=== PATIENT | female | born 1950 | race Caucasian/White ===

== ENCOUNTER 2018-05-08 10:18 | Emergency (ER) | payer OTHER, BC ==
[2018-05-08] MEDS ORDERED: LIDOCAINE 1% W/EPI 1:100,000 MDV 50 ML VIAL ONE (11:16)
[2018-05-08] MEDS ORDERED: TETANUS & DIPHTHERIA TOX,ADULT 0.5 ML VIAL ONE (11:16)
--- NOTE | 2018-05-08 11:33 | ER ---
Nurse's Notes [facility] Name: Trish Vergara Age: 68 yrs Sex: Female : 1950 Arrival Date: 05/08/2018 Time: 10:21 Bed 16 Private MD: Jared Danielle E Diagnosis: Laceration with foreign body of left middle finger without damage to nail Presentation: 05/08 10:38 Presenting complaint: Patient states: Bitten on left 3 rd digit while breaking up a dog aj fight. Small laceration to distal left 3 rd digit. Bleeding controlled. Transition of care: patient was not received from another setting of care. Onset of symptoms was May 08, 2018. Risk Assessment: Do you want to hurt yourself or someone else? Patient reports no desire to harm self or others. Initial Sepsis Screen: Does the patient meet any 2 criteria? No. Patient's initial sepsis screen is negative. Does the patient have a suspected source of infection? No. Patient's initial sepsis screen is negative. Care prior to arrival: None. 10:38 Method Of Arrival: Ambulatory 10:38 Acuity: MERCEDES 4 Triage Assessment: 10:41 Bite description: bite sustained to dorsal aspect of distal phalanx of left middle aj finger is from animal, was sustained 1-2 hours ago. by a dog, animal information: vaccination(s) is current. General: Appears in no apparent distress. comfortable, Behavior is calm, cooperative, appropriate for age. Pain: Complains of pain in dorsal aspect of distal phalanx of left middle finger. Neuro: Level of Consciousness is awake, alert, obeys commands, Oriented to person, place, time, situation, Appropriate for age. Respiratory: Airway is patent Respiratory effort is even, unlabored, Respiratory pattern is regular, symmetrical. Derm: Skin is intact, is healthy with good turgor, Skin is pink, warm \T\ dry. normal. Injury Description: Bite sustained to dorsal aspect of distal phalanx of left middle finger caused by a dog, is from animal, was sustained 30-60 minutes ago. Historical: - Allergies: 10:41 Phenergan; aj 10:41 Talwin; aj - Home Meds: 10:41 Morphine Oral [Active]; Vicodin 7.5/750 Oral [Active]; Xanax Oral [Active]; gabapentin aj oral oral [Active]; Naprosyn Oral [Active]; - PMHx: 10:41 Chronic pain; aj - PSHx: 10:41 hip replacement; aj - Immunization history:: Adult Immunizations up to date. - Social history:: Smoking status: Patient uses tobacco products, smokes one pack cigarettes per day. - Ebola Screening: : Patient negative for fever greater than or equal to 101.5 degrees Fahrenheit, and additional compatible Ebola Virus Disease symptoms Patient denies exposure to infectious person Patient denies travel to an Ebola-affected area in the 21 days before illness onset No symptoms or risks identified at this time. Screenin:45 Abuse screen: Denies threats or abuse. Denies injuries from another. Nutritional hb screening: No deficits noted. Tuberculosis screening: No symptoms or risk factors identified. Fall Risk None identified. Assessment: 10:45 General: Appears in no apparent distress. Behavior is calm, cooperative. Pain: Pain hb currently is 8 out of 10 on a pain scale. Neuro: Level of Consciousness is awake, alert, obeys commands, Oriented to person, place, time, situation. Cardiovascular: Capillary refill < 3 seconds Patient's skin is warm and dry. Respiratory: Airway is patent Trachea midline Respiratory effort is even, unlabored, Respiratory pattern is regular, symmetrical. GI: No signs and/or symptoms were reported involving the gastrointestinal system. : No signs and/or symptoms were reported regarding the genitourinary system. EENT: No signs and/or symptoms were reported regarding the EENT system. Derm: Skin is healthy with good turgor, Wound noted Other: laceration to left third finger. Musculoskeletal: No signs and/or symptoms reported regarding the musculoskeletal system. 11:45 Reassessment: Patient appears in no apparent distress at this time. Patient and/or hb family updated on plan of care and expected duration. Pain level reassessed. Patient is alert, oriented x 3, equal unlabored respirations, skin warm/dry/pink. Vital Signs: 10:41 BP 150 / 104; Pulse 110; Resp 20; Temp 98.2; Pulse Ox 98% on R/A; Weight 66.22 kg; aj Height 5 ft. 10 in. (177.80 cm); 11:30 BP 148 / 88; Pulse 90; Resp 18; Pulse Ox 100% on R/A; hb 10:41 Body Mass Index 20.95 (66.22 kg, 177.80 cm) ED Course: 10:21 Patient arrived in ED. mr 10:21 Jared Danielle MD is Private Physician. mr 10:39 Triage completed. aj 10:41 Arm band placed on right wrist. Patient placed in waiting room, Patient notified of wait time. 10:45 Patient has correct armband on for positive identification. Bed in low position. Call hb light in reach. Side rails up X 1. 10:54 Judi Prince, RN is Primary Nurse. hb 10:56 Petr Scherer PA is PHCP. jr8 10:56 Bud Mojica MD is Attending Physician. jr8 11:33 Jared Danielle MD is Referral Physician. jr8 11:52 No provider procedures requiring assistance completed. Patient did not have IV access hb during this emergency room visit. Administered Medications: 11:22 Drug: Lidocaine (1 %) 1 vials Volume: 20 ml; Route: Infiltration; hb 11:39 Drug: Tetanus-Diphtheria Toxoid Adult 0.5 ml {Boat Buffer Plastic: [employer]. Exp: hb 07/02/2020. Lot #: [id number]. } Route: IM; Site: left deltoid; 12:50 Follow up: Response: No adverse reaction hb Outcome: 11:33 Discharge ordered by . jr8 11:52 Discharged to home ambulatory. hb 11:52 Condition: stable 11:52 Discharge instructions given to patient, Instructed on discharge instructions, follow up and referral plans. medication usage, Demonstrated understanding of instructions, follow-up care, medications, wound care, Prescriptions given X 1. 11:54 Patient left the ED. hb Signatures: Maureen Camacho RN RN Leonor Bates mr Petr Scherer PA PA jr8 Judi Prince, RN RN hb
--- NOTE | 2018-05-08 11:34 | EDPHYS ---
Physician Documentation [facility] Name: Trish Vergara Age: 68 yrs Sex: Female : 1950 Arrival Date: 05/08/2018 Time: 10:21 Bed 16 Private MD: Jared Danielle E ED Physician Bud Mojica HPI: 05/08 11:03 This 68 yrs old Female presents to ER via Ambulatory with complaints of Dog jr8 Bite. 11:03 The patient was bitten on the dorsal aspect of distal phalanx of left middle finger, by jr8 a dog, while trying to stop animals from fighting, at home. Onset: The symptoms/episode began/occurred acutely, today. Animal information: The animal was reported to appear healthy. Animal's vaccinations are up to date. The animal is known and can be quarantined. Secondary to the bite the patient reports a laceration. Associated signs and symptoms: The patient has no apparent associated signs or symptoms. Severity of symptoms: At their worst the symptoms were mild, in the emergency department the symptoms are unchanged. The patient has not experienced similar symptoms in the past. The patient has not recently seen a physician. Historical: - Allergies: 10:41 Phenergan; aj 10:41 Talwin; aj - Home Meds: 10:41 Morphine Oral [Active]; Vicodin 7.5/750 Oral [Active]; Xanax Oral [Active]; gabapentin aj oral oral [Active]; Naprosyn Oral [Active]; - PMHx: 10:41 Chronic pain; aj - PSHx: 10:41 hip replacement; aj - Immunization history:: Adult Immunizations up to date. - Social history:: Smoking status: Patient uses tobacco products, smokes one pack cigarettes per day. - Ebola Screening: : Patient negative for fever greater than or equal to 101.5 degrees Fahrenheit, and additional compatible Ebola Virus Disease symptoms Patient denies exposure to infectious person Patient denies travel to an Ebola-affected area in the 21 days before illness onset No symptoms or risks identified at this time. ROS: 11:05 Eyes: Negative for injury, pain, redness, and discharge, ENT: Negative for injury, jr8 pain, and discharge, Neck: Negative for injury, pain, and swelling, Cardiovascular: Negative for chest pain, palpitations, and edema, Respiratory: Negative for shortness of breath, cough, wheezing, and pleuritic chest pain, Abdomen/GI: Negative for abdominal pain, nausea, vomiting, diarrhea, and constipation, Back: Negative for injury and pain, Neuro: Negative for headache, weakness, numbness, tingling, and seizure. 11:05 MS/extremity: Positive for laceration, of the dorsal aspect of distal phalanx of left middle finger. Exam: 11:05 Cardiovascular: Regular rate and rhythm with a normal S1 and S2. No gallops, murmurs, jr8 or rubs. Normal PMI, no JVD. No pulse deficits. Respiratory: Lungs have equal breath sounds bilaterally, clear to auscultation and percussion. No rales, rhonchi or wheezes noted. No increased work of breathing, no retractions or nasal flaring. MS/ Extremity: Pulses equal, no cyanosis. Neurovascular intact. Full, normal range of motion. Neuro: Awake and alert, GCS 15, oriented to person, place, time, and situation. Cranial nerves II-XII grossly intact. Motor strength 5/5 in all extremities. Sensory grossly intact. Cerebellar exam normal. Normal gait. 11:05 Skin: injury, laceration(s), the wound is approximately 2.5 cm(s), with a depth of .5 cm(s), of the dorsal aspect of distal phalanx of left middle finger, that can be described as no foreign body, irregular, without bleeding. Vital Signs: 10:41 BP 150 / 104; Pulse 110; Resp 20; Temp 98.2; Pulse Ox 98% on R/A; Weight 66.22 kg; aj Height 5 ft. 10 in. (177.80 cm); 11:30 BP 148 / 88; Pulse 90; Resp 18; Pulse Ox 100% on R/A; hb 10:41 Body Mass Index 20.95 (66.22 kg, 177.80 cm) aj Laceration: 11:32 Wound Repair of 2.5cm ( 1.0in ) subcutaneous laceration to left hand and dorsal aspect jr8 of distal phalanx of left middle finger. Irregularly shaped.. Minimal bleeding noted.. Distal neuro/vascular/tendon intact. Anesthesia: Digital block administered with 3 mls of 1% lidocaine. Wound prep: Extensive cleansing with betadine, Wound irrigation with saline, Wound explored extensively. Skin closed with 6 4-0 Prolene using interrupted sutures and sterile technique. Patient tolerated well. MDM: 10:56 Patient medically screened. jr8 11:32 Data reviewed: vital signs, nurses notes, and as a result, I will discharge patient. jr8 Data interpreted: Pulse oximetry: on room air is 98 %. Interpretation: normal. Counseling: I had a detailed discussion with the patient and/or guardian regarding: the historical points, exam findings, and any diagnostic results supporting the discharge/admit diagnosis, the need for outpatient follow up, a family practitioner, to return to the emergency department if symptoms worsen or persist or if there are any questions or concerns that arise at home. 05/08 11:05 Order name: Dressing - Wound; Complete Time: 11:36 jr8 05/08 11:05 Order name: Gloves, Sterile; Complete Time: 11:36 jr8 05/08 11:05 Order name: Setup Suture Tray; Complete Time: 11:36 jr8 Administered Medications: 11:22 Drug: Lidocaine (1 %) 1 vials Volume: 20 ml; Route: Infiltration; hb 11:39 Drug: Tetanus-Diphtheria Toxoid Adult 0.5 ml {Jumpbasting Lining Baster: [employer]. Exp: hb 07/02/2020. Lot #: [id number]. } Route: IM; Site: left deltoid; 12:50 Follow up: Response: No adverse reaction Disposition: 15:27 Co-signature as Attending Physician, Bud Mojica MD. rn Disposition: 05/08/18 11:33 Discharged to Home. Impression: Laceration with foreign body of left middle finger without damage to nail. - Condition is Stable. - Discharge Instructions: Laceration Care, Adult, Animal Bite. - Prescriptions for Augmentin 875- 125 mg Oral Tablet - take 1 tablet by ORAL route every 12 hours for 10 days; 20 tablet. - Medication Reconciliation Form, Thank You Letter, Antibiotic Education, Prescription Opioid Use form. - Follow up: Jared Danielle MD; When: 7 - 10 days; Reason: Wound Recheck, Recheck today's complaints, Continuance of care, Staple/Suture removal, Re-evaluation by your physician. - Problem is new. - Symptoms have improved. Signatures: Maureen Camacho RN RN aj Nieto, Roman, MD MD rn Roszak, Josh, PA PA jr8 Judi Prince RN RN Corrections: (The following items were deleted from the chart) 11:54 11:33 05/08/2018 11:33 Discharged to Home. Impression: Laceration with foreign body of hb left middle finger without damage to nail. Condition is Stable. Forms are Medication Reconciliation Form, Thank You Letter, Antibiotic Education, Prescription Opioid Use. Follow up: Jared Danielle; When: 7 - 10 days; Reason: Wound Recheck, Recheck today's complaints, Continuance of care, Staple/Suture removal, Re-evaluation by your physician. Problem is new. Symptoms have improved. jr8
== END 2018-05-08 11:54 | disposition home or self-care (01) ==
LOC: ER 10:18
PROC: 0HQGXZZ Repair Left Hand Skin, External Approach (ICD-10-PCS; principal; 2018-05-08)
DX: S61.213A Laceration without foreign body of left middle finger without damage to nail, initial encounter (principal); F17.210 Nicotine dependence, cigarettes, uncomplicated; W54.0XXA Bitten by dog, initial encounter; Y93.89 Activity, other specified; Y92.9 Unspecified place or not applicable; Y99.8 Other external cause status; Z88.6 Allergy status to analgesic agent; Z23 Encounter for immunization
CPT/HCPCS: 90714; 99283

== ENCOUNTER 2019-03-17 13:47 | Emergency (ER) | payer BC, OTHER ==
[2019-03-17] MEDS ORDERED: ONDANSETRON 4 MG (ODT) TAB ONE (14:18)
[2019-03-17] MEDS ORDERED: NA CHLORIDE 0.9% 500 ML ONE (14:26)
[2019-03-17] MEDS ORDERED: ONDANSETRON 4 MG/2 ML VIAL ONE ×2 (14:26→18:16)
[2019-03-17 14:38] LABS: Absolute Lymphocytes (CBC) 0.8 K/uL (0.7-4.9); Absolute Monocytes 0.2 K/uL (0.1-1.3); Absolute Neutrophil 5.9 K/uL (1.8-8.0); Basophils % 0.2 % (0-1.3); Hematocrit 29.5 % (36.0-45.0); MPV 7.2 fL (7.6-11.3); Monocytes % 3.5 % (3.3-12.3); RBC Red Blood Cell Count 4.21 M/uL (3.86-4.86)
[2019-03-17 14:55] LABS: Albumin 3.2 g/dL (3.4-5.0); Bilirubin Direct 0.1 mg/dL (0-0.2); Bilirubin Total 0.5 mg/dL (0.2-1.0); Potassium 3.8 mmol/L (3.5-5.1); Protein, Total 7.4 g/dL (6.4-8.2)
[2019-03-17 17:12] LABS: Urine Bacteria <20 /HPF (<20); Urine Culture Reflex Order NOT NEEDED; Urine RBC <5 /HPF (NONE SEEN)
--- NOTE | 2019-03-17 17:39 | RAD REPORT ---
EXAM DESCRIPTION: CT - Abdomen Pelvis W Contrast - 03/17/2019 5:18 pm CLINICAL HISTORY: Abdominal pain. Vomiting COMPARISON: 2010 TECHNIQUE: Computed axial tomography of the abdomen and pelvis was obtained. 100 cc Isovue-300 is ad ministered intravenously. Oral contrast was given. All CT scans are performed using dose optimization technique as appropriate and may include automated exposure control or mA/KV adjustment according to patient size. FINDINGS: Small hiatal hernia The liver, spleen, pancreas, adrenals and left kidney appear unremarkable. Mild cortical thinning rig ht kidney probably secondary to prior inflammation The appendix is normal caliber Artifact from bilateral hip arthroplasties obscure detail of the pelvis somewhat. There is no evidence of diverticulitis Normal appendix Postsurgical changes involving the lumbar spine IMPRESSION: No acute abnormality displayed
--- NOTE | 2019-03-17 17:54 | ER ---
Nurse's Notes [facility] Name: Trish Vergara Age: 69 yrs Sex: Female : 1950 Arrival Date: 03/17/2019 Time: 13:50 Bed 23 Private MD: Jared Danielle E Diagnosis: Vomiting;Enteritis Presentation: 03/17 13:51 Presenting complaint: Patient states: I have been vomiting since last night and I can't la1 stop. Transition of care: patient was not received from another setting of care. Onset of symptoms was March 17, 2019. Risk Assessment: Do you want to hurt yourself or someone else? Patient reports no desire to harm self or others. Initial Sepsis Screen: Does the patient meet any 2 criteria? No. Patient's initial sepsis screen is negative. Does the patient have a suspected source of infection? No. Patient's initial sepsis screen is negative. Care prior to arrival: None. 13:51 Method Of Arrival: Ambulatory la1 13:51 Acuity: MERCEDES 3 la1 Triage Assessment: 14:02 General: Appears in no apparent distress. Behavior is calm, cooperative. ls4 Historical: - Allergies: 15:14 Phenergan; ls4 15:14 Talwin; ls4 - Home Meds: 15:15 gabapentin Oral [Active]; Morphine Oral [Active]; Naprosyn Oral [Active]; Vicodin ls4 7.5/750 Oral [Active]; Xanax Oral [Active]; - PMHx: 15:14 Chronic pain; ls4 - Immunization history:: Adult Immunizations up to date. - Social history:: Smoking status: Patient/guardian denies using tobacco. - Ebola Screening: : No symptoms or risks identified at this time. - Family history:: not pertinent. - Hospitalizations: : No recent hospitalization is reported. Screenin:02 Abuse screen: Denies threats or abuse. Nutritional screening: No deficits noted. ls4 Tuberculosis screening: No symptoms or risk factors identified. Fall Risk None identified. Assessment: 14:03 General: Appears unkempt, Behavior is anxious, flat. Pain: Complains of pain in ls4 generalized Pain currently is 4 out of 10 on a pain scale. Neuro: Level of Consciousness is awake, alert, obeys commands, Oriented to person, place, time, situation, Gait is steady, Speech is normal, Facial symmetry appears normal, Pupils are PERRLA. Cardiovascular: No deficits noted. GI: Reports vomiting, since yesterday. : Urine is cloudy. Musculoskeletal: No deficits noted. Vital Signs: 13:53 Pulse 95; Resp 18; Temp 98.1; Pulse Ox 98% on R/A; Weight 63.5 kg; Height 5 ft. 10 in. la1 (177.80 cm); 13:53 BP 154 / 100; la1 14:45 BP 178 / 77; Pulse 89; Resp 16; Pulse Ox 98% on R/A; Pain 3/10; ls4 15:50 BP 187 / 87; Pulse 88; Resp 18; Pulse Ox 98% on R/A; Pain 3/10; ls4 17:51 BP 181 / 82; Pulse 79; Resp 16; Pulse Ox 98% on R/A; Pain 0/10; ls4 13:53 Body Mass Index 20.09 (63.50 kg, 177.80 cm) la1 ED Course: 13:50 Patient arrived in ED. mr 13:51 Jared Danielle MD is Private Physician. mr 13:51 Triage completed. la1 13:51 Arm band placed on right wrist. la1 13:56 Bud Mojica MD is Attending Physician. rn 14:01 Mile Stafford, LAVONNE is Primary Nurse. ls4 14:02 Patient has correct armband on for positive identification. Placed in gown. Bed in low ls4 position. Call light in reach. Side rails up X 1. 14:14 Initial lab(s) drawn, by me, sent to lab. Inserted saline lock: 22 gauge in right lt1 forearm, using aseptic technique. 14:34 Basic Metabolic Panel Sent. ls4 15:13 No provider procedures requiring assistance completed. ls4 17:18 CT completed. Patient tolerated procedure well. Patient moved to CT. Patient moved back wa from CT. 17:19 CT Abd/Pelvis - W/Contrast In Process Unspecified. EDMS 18:21 IV discontinued, intact, bleeding controlled, No redness/swelling at site. ls4 Administered Medications: 14:20 Drug: Zofran 4 mg Route: IVP; Site: right forearm; ls4 14:46 Follow up: Response: No adverse reaction ls4 14:20 Drug: NS 0.9% 500 ml Route: IV; Rate: bolus; Site: right forearm; ls4 14:46 Follow up: IV Status: Completed infusion; IV Intake: 500ml ls4 17:59 Not Given (Patient Refused): Demerol 25 mg IVP once ls4 18:12 Drug: Zofran 4 mg Route: IVP; Site: right forearm; ls4 18:23 Follow up: Response: No adverse reaction; Marked relief of symptoms ls4 Intake: 14:46 IV: 500ml; Total: 500ml. ls4 Outcome: 17:54 Discharge ordered by . rn 18:23 Discharged to home ambulatory. ls4 18:23 Condition: good 18:23 Discharge instructions given to patient, family, Instructed on discharge instructions, follow up and referral plans. Demonstrated understanding of instructions, follow-up care, medications. 18:24 Patient left the ED. ls4 Signatures: Dispatcher [employer] EDMT PastorSarai mr MojicaBud MD MD rn Attema, Lee, RN RN la1 Robb Quispe Lisa, RN RN ls4 Divine Calhoun lt1 Corrections: (The following items were deleted from the chart) 15:15 13:51 Allergies: Phenergan; la1 ls4 15:15 13:51 Allergies: Talwin; la1 ls4 15:15 13:51 PMHx: Chronic pain; la1 ls4 18:21 14:14 Inserted saline lock: 22 gauge in right antecubital area, using aseptic ls4 technique. lt1
--- NOTE | 2019-03-17 17:54 | EDPHYS ---
Physician Documentation [facility] Name: Trish Vergara Age: 69 yrs Sex: Female : 1950 Arrival Date: 03/17/2019 Time: 13:50 Bed 23 Private MD: Jared Danielle E ED Physician Bud Mojica HPI: 03/17 14:07 This 69 yrs old Female presents to ER via Ambulatory with complaints of rn Vomiting. 14:07 The patient presents to the emergency department with nausea, vomiting, abdominal pain. rn Onset: The symptoms/episode began/occurred yesterday. Possible causes: unknown. The symptoms are aggravated by nothing. The symptoms are alleviated by nothing. Severity of symptoms: At their worst the symptoms were moderate in the emergency department the symptoms are unchanged. The patient has experienced similar episodes in the past. Reports abd pain, central, assoc with nausea/vomiting, felt constipated but then had bowel movement, no fever, has had before, states better with zofran. NO blood in emesis or stool. No chest pain/sob. . Historical: - Allergies: 15:14 Phenergan; ls4 15:14 Talwin; ls4 - Home Meds: 15:15 gabapentin Oral [Active]; Morphine Oral [Active]; Naprosyn Oral [Active]; Vicodin ls4 7.5/750 Oral [Active]; Xanax Oral [Active]; - PMHx: 15:14 Chronic pain; ls4 - Immunization history:: Adult Immunizations up to date. - Social history:: Smoking status: Patient/guardian denies using tobacco. - Ebola Screening: : No symptoms or risks identified at this time. - Family history:: not pertinent. - Hospitalizations: : No recent hospitalization is reported. ROS: 14:07 Constitutional: Negative for fever, and weight loss, Eyes: Negative for injury, pain, rn redness, and discharge, Neck: Negative for injury, pain, and swelling, Cardiovascular: Negative for chest pain, palpitations, and edema, Respiratory: Negative for shortness of breath, cough, wheezing, and pleuritic chest pain, Abdomen/GI: + abd pain/nausea/vomiting MS/Extremity: Negative for injury and deformity, Skin: Negative for injury, rash, and discoloration, Neuro: Negative for headache, numbness, tingling, and seizure, + for generalized weakness Exam: 14:09 Constitutional: This is a well developed, well nourished patient who is awake, alert, rn appears uncomfortable, laying in bed holding emesis bag Head/Face: Normocephalic, atraumatic. Eyes: Pupils equal round and reactive to light, extra-ocular motions intact. Periorbital areas with no swelling, redness, or edema. ENT: dry MM Neck: Trachea midline, no thyromegaly or masses palpated, and no cervical lymphadenopathy. Supple, full range of motion without nuchal rigidity, or vertebral point tenderness. No Meningismus. Cardiovascular: Regular rate and rhythm . No pulse deficits. Respiratory: No increased work of breathing, no retractions or nasal flaring. Abdomen/GI: soft, + periumbilical tenderness, no mass MS/ Extremity: Pulses equal, no cyanosis. Neurovascular intact. Full, normal range of motion. Equal circumference. Neuro: Awake and alert, GCS 15, oriented to person, place, time, and situation. Cranial nerves II-XII grossly intact. Motor strength 5/5 in all extremities. Sensory grossly intact. Vital Signs: 13:53 Pulse 95; Resp 18; Temp 98.1; Pulse Ox 98% on R/A; Weight 63.5 kg; Height 5 ft. 10 in. la1 (177.80 cm); 13:53 BP 154 / 100; la1 14:45 BP 178 / 77; Pulse 89; Resp 16; Pulse Ox 98% on R/A; Pain 3/10; ls4 15:50 BP 187 / 87; Pulse 88; Resp 18; Pulse Ox 98% on R/A; Pain 3/10; ls4 17:51 BP 181 / 82; Pulse 79; Resp 16; Pulse Ox 98% on R/A; Pain 0/10; ls4 13:53 Body Mass Index 20.09 (63.50 kg, 177.80 cm) la1 MDM: 13:56 Patient medically screened. rn 17:46 Differential diagnosis: Nonspecific abd pain, gastritis, pancreatitis, appendicitis, rn diverticulitis, viral gastroenteritis, gastroenteritis. Data reviewed: vital signs, nurses notes, lab test result(s), radiologic studies, CT scan, and as a result, I will discharge patient. Counseling: I had a detailed discussion with the patient and/or guardian regarding: the historical points, exam findings, and any diagnostic results supporting the discharge/admit diagnosis, lab results, radiology results, the need for outpatient follow up, to return to the emergency department if symptoms worsen or persist or if there are any questions or concerns that arise at home. Response to treatment: the patient's symptoms have markedly improved after treatment, and as a result, I will discharge patient. 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 Return precautions given and understood. . 03/17 13:57 Order name: Basic Metabolic Panel rn 03/17 13:57 Order name: CBC with Diff; Complete Time: 15:09 rn 03/17 13:57 Order name: Hepatic Function; Complete Time: 15:09 rn 03/17 13:57 Order name: Lipase; Complete Time: 15:09 rn 03/17 13:57 Order name: Urine Microscopic Only; Complete Time: 17:29 rn 03/17 13:57 Order name: Basic Metabolic Panel; Complete Time: 15:09 EDMS 03/17 13:57 Order name: IV Saline Lock; Complete Time: 14:15 rn 03/17 13:57 Order name: Labs collected and sent; Complete Time: 14:15 rn 03/17 14:05 Order name: CT Abd/Pelvis - W/Contrast; Complete Time: 17:45 rn 03/17 14:09 Order name: Flu; Complete Time: 15:19 rn 03/17 13:57 Order name: Urine Dipstick-Ancillary (obtain specimen); Complete Time: 15:35 rn Administered Medications: 14:20 Drug: Zofran 4 mg Route: IVP; Site: right forearm; ls4 14:46 Follow up: Response: No adverse reaction ls4 14:20 Drug: NS 0.9% 500 ml Route: IV; Rate: bolus; Site: right forearm; ls4 14:46 Follow up: IV Status: Completed infusion; IV Intake: 500ml ls4 17:59 Not Given (Patient Refused): Demerol 25 mg IVP once ls4 18:12 Drug: Zofran 4 mg Route: IVP; Site: right forearm; ls4 18:23 Follow up: Response: No adverse reaction; Marked relief of symptoms ls4 Disposition: 03/17/19 17:54 Discharged to Home. Impression: Vomiting, Enteritis. - Condition is Stable. - Discharge Instructions: Dehydration, Adult, Nausea and Vomiting, Adult, Viral Gastroenteritis, Adult. - Prescriptions for Zofran ODT 4 mg Oral tablet,disintegrating - place 1 tablet by TRANSLINGUAL route every 8 hours As needed; 20 tablet. - Medication Reconciliation Form, Thank You Letter, Antibiotic Education, Prescription Opioid Use form. - Follow up: Private Physician; When: As needed; Reason: Recheck today's complaints, Re-evaluation by your physician. - Problem is new. - Symptoms have improved. Signatures: Dispatcher [employer] EDMS Bud Mojica MD MD rn Attema, Lee, RN RN la1 Mile Stafford RN RN ls4 Corrections: (The following items were deleted from the chart) 15:15 13:51 Allergies: Phenergan; la1 ls4 15:15 13:51 Allergies: Talwin; az1 ls4 15:15 13:51 PMHx: Chronic pain; [facility] ls4 18:24 17:54 03/17/2019 17:54 Discharged to Home. Impression: Vomiting; Enteritis. Condition ls4 is Stable. Forms are Medication Reconciliation Form, Thank You Letter, Antibiotic Education, Prescription Opioid Use. Follow up: Private Physician; When: As needed; Reason: Recheck today's complaints, Re-evaluation by your physician. Problem is new. Symptoms have improved. rn
== END 2019-03-17 18:24 | disposition home or self-care (01) ==
LOC: ER 13:47
DX: K52.9 Noninfective gastroenteritis and colitis, unspecified (principal); Z88.8 Allergy status to other drugs, medicaments and biological substances
CPT/HCPCS: 85025; 80048; 36415; 80076; 81015; 83690; 87804 ×2; 74177; Q9967; J2405 ×2

== ENCOUNTER 2019-07-09 16:34 | Emergency (ER) | payer OTHER, BC ==
[2019-07-09 18:00] LABS: Basophils % 0.8 % (0-1.3); MPV 8.6 fL (7.6-11.3); Protime INR 0.98
[2019-07-09 18:06] LABS: Hematocrit 20.8 % (36.0-45.0)
[2019-07-09 18:30] LABS: ALT/SGPT 18 U/L (12-78); AST/SGOT 48 U/L (15-37); Albumin 3.5 g/dL (3.4-5.0); Alkaline Phosphatase 90 U/L (45-117); BUN Blood Urea Nitrogen 11 mg/dL (7-18); Bicarbonate 23 mmol/L (21-32); Bilirubin Direct < 0.1 mg/dL (0-0.2); Bilirubin Total 0.4 mg/dL (0.2-1.0); Glucose Level 94 mg/dL (74-106); Lipase 52 U/L (73-393); Magnesium 2.2 mg/dL (1.8-2.4); NT PRO-BNP 379 pg/mL (<125); Protein, Total 7.3 g/dL (6.4-8.2); Sodium Level 138 mmol/L (136-145); Troponin (Emerg Dept Use Only) < 0.02 ng/mL (0.0-0.045)
[2019-07-09] MEDS ORDERED: PANTOPRAZOLE 40 MG INJ ONE (18:46)
--- NOTE | 2019-07-09 18:54 | RAD REPORT ---
EXAM DESCRIPTION: CT - Abdomen Pelvis W Contrast - 07/09/2019 6:30 pm CLINICAL HISTORY: Abdominal pain COMPARISON: March 2019 TECHNIQUE: Computed axial tomography of the abdomen pelvis was obtained. 100 cc Isovue-300 was admin istered intravenously. Oral contrast was not requested which limits evaluation of bowel. All CT scans are performed using dose optimization technique as appropriate and may include automated exposure control or mA/KV adjustment according to patient size. FINDINGS: The wall of the distal stomach/proximal duodenum is markedly thickened. Stranding is prese nt within adjacent fat The gallbladder is distended. Mild dilatation of the intra and extrahepatic biliary tree. A pancreatic mass is not visualized. Small duodenal diverticulum. Spleen, adrenals and kidneys are unremarkable. Diverticula stem from the colon. There is no evidence of diverticulitis. Bilateral hip arthroplasties Mild to moderate anterior subluxation L4 on L5. Postsurgical changes noted. IMPRESSION: Marked thickening of the wall of the distal stomach/proximal duodenum likely indicating inflammation. Gallbladder distention with mild dilatation of the biliary tree. This could be secondary to a nonvisu alized stone within the duct, edema involving distal common bile duct secondary to duodenal inflammat ion or probably less likely a periampullary neoplasm.
[2019-07-09 18:59] LABS: Urine Blood NEGATIVE (NEG); Urine Glucose NEGATIVE (NEG); Urine Protein NEGATIVE (NEG); Urine Specific Gravity <1.005 (1.005-1.030); Urine pH 5.5 (5.0-7.0)
[2019-07-09] MEDS ORDERED: PANTOPRAZOLE INJ 80 MG in NA CHLORIDE 0.9% 250 ML IV SCH (19:00)
[2019-07-09] MEDS ORDERED: NA CHLORIDE 0.9% 250 ML ONE (19:26)
--- NOTE | 2019-07-09 20:00 | EDPHYS ---
Physician Documentation [facility] Name: Trish Vergara Age: 69 yrs Sex: Female : 1950 Arrival Date: 07/09/2019 Time: 16:37 Bed 8 Private MD: Jared Danielle E ED Physician Gabriele Terrazas HPI: 07/09 17:40 This 69 yrs old Female presents to ER via Wheelchair with complaints of Pain cp in Right Side. 17:40 The patient presents with abdominal pain right lower quadrant. Onset: The cp symptoms/episode began/occurred 3 month(s) ago. Associated signs and symptoms: Pertinent negatives: blood in stools, chest pain, constipation, diarrhea, dysuria, fever, headache, vomiting. The symptoms are described as constant. The patient has been recently seen by a physician: Dr. Danielle had blood work today that showed anemia so patient was referred to ED for evaluation. Historical: - Allergies: 17:14 Phenergan; aj1 17:14 Talwin; aj1 - Home Meds: 20:35 gabapentin Oral [Active]; Morphine Oral [Active]; Naprosyn Oral [Active]; Vicodin ak1 7.5/750 Oral [Active]; Xanax Oral [Active]; - PMHx: 17:14 Chronic pain; 8 hip replacements; plate in back; aj1 - Immunization history:: Adult Immunizations unknown. - Ebola Screening: : Patient denies travel to an Ebola-affected area in the 21 days before illness onset. - Social history:: Smoking status: unknown. ROS: 17:45 Constitutional: Negative for body aches, chills, fever, poor PO intake, weight loss. cp 17:45 Eyes: Negative for injury, pain, redness, and discharge. cp 17:45 ENT: Negative for drainage from ear(s), ear pain, sore throat, difficulty swallowing, difficulty handling secretions. 17:45 Cardiovascular: Negative for chest pain, palpitations. 17:45 Respiratory: Negative for cough, shortness of breath, wheezing. 17:45 Abdomen/GI: Positive for abdominal pain, Negative for vomiting, diarrhea, constipation, rectal bleeding. 17:45 Back: Negative for pain at rest, pain with movement. 17:45 : Negative for urinary symptoms, vaginal bleeding. 17:45 Neuro: Negative for altered mental status, dizziness, headache, weakness. 17:45 All other systems are negative. Exam: 18:00 Constitutional: The patient appears in no acute distress, alert, awake, cp non-diaphoretic, non-toxic, well developed, well nourished. 18:00 Head/Face: Normocephalic, atraumatic. cp 18:00 Eyes: Periorbital structures: appear normal, Conjunctiva: normal, no exudate, no injection, Sclera: no appreciated abnormality, Lids and lashes: appear normal, bilaterally. 18:00 ENT: External ear(s): are unremarkable, Nose: is normal, Mouth: Lips: moist, Oral mucosa: pink and intact, moist, Posterior pharynx: is normal, airway is patent, no erythema, no exudate. 18:00 Chest/axilla: Inspection: normal, Palpation: is normal, no crepitus, no tenderness. 18:00 Cardiovascular: Rate: normal, Rhythm: regular, Edema: is not appreciated, JVD: is not appreciated. 18:00 Respiratory: the patient does not display signs of respiratory distress, Respirations: normal, no use of accessory muscles, no retractions, no splinting, no tachypnea, labored breathing, is not present, Breath sounds: are clear throughout, no decreased breath sounds, no stridor, no wheezing. 18:00 Abdomen/GI: Inspection: abdomen appears normal, Bowel sounds: active, all quadrants, Palpation: soft, in all quadrants, mild abdominal tenderness, in the right lower quadrant, rebound tenderness, is not appreciated, involuntary guarding, is not appreciated, Rectal exam: Stool: brown, guaiac positive. 18:00 Back: pain, is absent, ROM is normal. 18:00 Skin: no rash present. 18:00 Neuro: Orientation: to person, place \T\ time. Mentation: is normal, Motor: moves all fours, strength is normal. Vital Signs: 17:14 BP 186 / 95; Pulse 87; Resp 18; Temp 98.2; Pulse Ox 100% on R/A; Weight 63.05 kg (R); aj1 Height 5 ft. 10 in. (177.80 cm) (R); Pain 9/10; 17:48 BP 178 / 102; Pulse 74; Resp 16; Pulse Ox 100% ; bp 18:38 BP 170 / 85; Pulse 72; Resp 16; Pulse Ox 100% ; bp 23:17 BP 189 / 89; Pulse 69; Resp 18; Temp 97.6; Pulse Ox 100% on R/A; ak1 17:14 Body Mass Index 19.94 (63.05 kg, 177.80 cm) aj1 MDM: 17:22 Patient medically screened. cp 18:00 Differential diagnosis: gastritis, Peptic Ulcer Disease, Perf. Duodenal Ulcer, Perf. cp Gastric Ulcer, Ureterolithiasis, urinary tract infection. 19:35 Data reviewed: vital signs, nurses notes, lab test result(s), EKG, radiologic studies, cp CT scan, I have discussed the patient's presentation/case with the attending Emergency Department Physician; and as a result, I will transfer patient. 19:35 Counseling: I had a detailed discussion with the patient and/or guardian regarding: the cp historical points, exam findings, and any diagnostic results supporting the discharge/admit diagnosis, lab results, radiology results. 19:55 Physician consultation: DR Castellanos, hospitalist \[facility], will cp accept patient as transfer. 07/09 17:34 Order name: Basic Metabolic Panel; Complete Time: 18:37 cp 07/09 17:34 Order name: CBC with Diff; Complete Time: 18:19 cp 07/09 17:34 Order name: LFT's; Complete Time: 18:37 cp 07/09 17:34 Order name: Magnesium; Complete Time: 18:37 cp 07/09 17:34 Order name: NT PRO-BNP; Complete Time: 18:37 cp 07/09 17:34 Order name: PT-INR; Complete Time: 18:19 cp 07/09 17:34 Order name: Troponin (emerg Dept Use Only); Complete Time: 18:37 cp 07/09 17:34 Order name: CT Abd/Pelvis - IV Contrast Only; Complete Time: 19:31 cp 07/09 17:34 Order name: Type And Screen cp 07/09 17:34 Order name: Lipase; Complete Time: 18:37 cp 07/09 17:37 Order name: ETOH Level; Complete Time: 18:37 cp 07/09 18:30 Order name: Packed RBC Leukored EDMS 07/09 18:52 Order name: Urine Dipstick--Ancillary (enter results); Complete Time: 19:31 bd 07/09 21:46 Order name: ABO/RH no charge EDMS 07/09 17:34 Order name: EKG; Complete Time: 17:35 cp 07/09 17:34 Order name: Cardiac monitoring; Complete Time: 17:50 cp 07/09 17:34 Order name: EKG - Nurse/Tech; Complete Time: 17:50 cp 07/09 17:34 Order name: IV Saline Lock; Complete Time: 17:50 cp 07/09 17:34 Order name: Labs collected and sent; Complete Time: 17:50 cp 07/09 17:34 Order name: O2 Per Protocol; Complete Time: 17:50 cp 07/09 17:34 Order name: O2 Sat Monitoring; Complete Time: 17:50 cp 07/09 18:38 Order name: IV; Complete Time: 18:39 cp Administered Medications: 19:00 Drug: ProTONIX 80 mg {Note: Gonzalo Anderson RN stated he gave this medicaton . .} Route: IVP; ak1 Site: left antecubital; 19:01 Follow up: Response: No adverse reaction ak1 20:01 Drug: ProTONIX 8 mg/hr Route: IV; Rate: 25 ml/hr; Site: right forearm; ak1 20:01 Follow up: IV Status: Infusion continued upon transfer ak1 23:17 Drug: fentaNYL (PF) 25 mcg Route: IVP; Site: left antecubital; ak1 23:17 Follow up: Response: No adverse reaction; Pain is decreased; RASS: Alert and Calm (0) ak1 Point of Care Testing: Guaiac: 18:37 Stool Guaiac: Positive; Stool Hemoccult Control: Pass; bp Disposition: 07/09/19 19:[address] [facility]. Diagnosis are Anemia in chronic diseases classified elsewhere, Gastrointestinal hemorrhage, unspecified. - Reason for transfer: Higher level of care. - Accepting physician is DR Barry. - Condition is Stable. - Problem is new. - Symptoms have improved. Addendum: 07/11/2019 08:10 Co-signature as Attending Physician, Gabriele Terrazas MD I agree with the assessment and c tay plan of care. Signatures: Dispatcher [employer] EDNJ Pippa Sher RN RN aj1 Gabriele Terrazas MD MD cha Krenek, Amber RN RN ak1 Gabriele Riddle PA PA cp Corrections: (The following items were deleted from the chart) 07/09 22:19 19:59 07/09/2019 19:[address] [facility]. Diagnosis is cp Anemia in chronic diseases classified elsewhere; Gastrointestinal hemorrhage, unspecified. Reason for transfer: Higher level of care. Accepting physician is Doctor. Condition is Stable. Problem is new. Symptoms have improved. cp 23:18 22:19 07/09/2019 19:[address] [facility]. Diagnosis is ak1 Anemia in chronic diseases classified elsewhere; Gastrointestinal hemorrhage, unspecified. Reason for transfer: Higher level of care. Accepting physician is DR Barry. Condition is Stable. Problem is new. Symptoms have improved. cp
--- NOTE | 2019-07-09 20:00 | ER ---
Nurse's Notes [facility] Name: Trish Vergara Age: 69 yrs Sex: Female : 1950 Arrival Date: 07/09/2019 Time: 16:37 Bed 8 Private MD: Jared Danielle E Diagnosis: Anemia in chronic diseases classified elsewhere;Gastrointestinal hemorrhage, unspecified Presentation: 07/09 17:11 Presenting complaint: Patient states: She has been having RLQ pain for the past 3 aj1 months. She had labs drawn today and was called and told to come to the emergency room because her hemoglobin was 5.5 and her hematocrit is 19.9. Patient appears pale. Denies N/V/D. Denies fever. Transition of care: patient was not received from another setting of care. Onset of symptoms was 2018. Risk Assessment: Do you want to hurt yourself or someone else? Patient reports no desire to harm self or others. Initial Sepsis Screen: Does the patient meet any 2 criteria? No. Patient's initial sepsis screen is negative. Does the patient have a suspected source of infection? Yes: Acute abdominal pain. Care prior to arrival: None. 17:11 Method Of Arrival: Wheelchair aj1 17:11 Acuity: MRECEDES 2 aj1 Triage Assessment: 17:14 General: Appears in no apparent distress. uncomfortable, Behavior is cooperative, aj1 anxious. Pain:. Pain: Complains of pain in right lower quadrant Pain currently is 9 out of 10 on a pain scale. Neuro: Level of Consciousness is awake, alert, obeys commands. Cardiovascular: Patient's skin is warm and dry. Respiratory: Airway is patent Respiratory effort is even, unlabored, Respiratory pattern is regular, symmetrical. Historical: - Allergies: 17:14 Phenergan; aj1 17:14 Talwin; aj1 - Home Meds: 20:35 gabapentin Oral [Active]; Morphine Oral [Active]; Naprosyn Oral [Active]; Vicodin ak1 7.5/750 Oral [Active]; Xanax Oral [Active]; - PMHx: 17:14 Chronic pain; 8 hip replacements; plate in back; aj1 - Immunization history:: Adult Immunizations unknown. - Ebola Screening: : Patient denies travel to an Ebola-affected area in the 21 days before illness onset. - Social history:: Smoking status: unknown. Screenin:20 Abuse screen: Denies threats or abuse. Denies injuries from another. Nutritional bp screening: No deficits noted. Tuberculosis screening: No symptoms or risk factors identified. Fall Risk None identified. Assessment: 17:20 General: SEE TRIAGE NOTE. bp 20:33 General: Appears in no apparent distress. comfortable, Behavior is cooperative, ak1 anxious. Pain: Denies pain. Neuro: Level of Consciousness is awake, alert, obeys commands, Oriented to person, place, time, situation, Zoology Teacher are equal bilaterally Moves all extremities. Gait is steady, Speech is normal. Cardiovascular: No deficits noted. Respiratory: Airway is patent Respiratory effort is even, unlabored, Respiratory pattern is regular. GI: No signs and/or symptoms were reported involving the gastrointestinal system. : No signs and/or symptoms were reported regarding the genitourinary system. EENT: No signs and/or symptoms were reported regarding the EENT system. Derm: No signs and/or symptoms reported regarding the dermatologic system. Musculoskeletal: No signs and/or symptoms reported regarding the musculoskeletal system. 21:56 Reassessment: Cora Riddle notified pt is requesting to speak with him. pt refused to sign ak transfer form until she speaks to Cora Riddle, her provider. 23:18 Reassessment: see transfusion record for complete vitals. ak1 Vital Signs: 17:14 BP 186 / 95; Pulse 87; Resp 18; Temp 98.2; Pulse Ox 100% on R/A; Weight 63.05 kg (R); aj1 Height 5 ft. 10 in. (177.80 cm) (R); Pain 9/10; 17:48 BP 178 / 102; Pulse 74; Resp 16; Pulse Ox 100% ; bp 18:38 BP 170 / 85; Pulse 72; Resp 16; Pulse Ox 100% ; bp 23:17 BP 189 / 89; Pulse 69; Resp 18; Temp 97.6; Pulse Ox 100% on R/A; ak1 17:14 Body Mass Index 19.94 (63.05 kg, 177.80 cm) aj1 ED Course: 16:37 Patient arrived in ED. ag5 16:37 Jared Danielle MD is Private Physician. ag5 17:13 Triage completed. aj1 17:14 Arm band placed on Patient placed in an exam room. aj1 17:18 Gabriele Riddle PA is PHCP. cp 17:18 Gabriele Terrazas MD is Attending Physician. cp 17:19 Gonzalo Dias, RN is Primary Nurse. bp 17:20 Patient has correct armband on for positive identification. Bed in low position. Call bp light in reach. Side rails up X2. 17:36 Radiology exam delayed due to lab results not completed at this time. (BUN/Creatinine) nj IV insertion attempt and/or patient not having appropriate IV at this time. 17:47 Inserted saline lock: 20 gauge in left antecubital area, using aseptic technique. Blood bp collected. 17:48 EKG done, by technical solutions director. reviewed by Gabriele DAVIS. 3 18:31 CT Abd/Pelvis - IV Contrast Only In Process Unspecified. EDMS 19:05 Inserted saline lock: 22 gauge in right forearm, using aseptic technique. oe 20:33 Assisted to bedside commode. ak1 23:17 No provider procedures requiring assistance completed. Patient transferred, IV remains ak1 in place. Administered Medications: 19:00 Drug: ProTONIX 80 mg {Note: Gonzalo Anderson RN stated he gave this medicaton . .} Route: IVP; ak1 Site: left antecubital; 19:01 Follow up: Response: No adverse reaction ak1 20:01 Drug: ProTONIX 8 mg/hr Route: IV; Rate: 25 ml/hr; Site: right forearm; ak1 20:01 Follow up: IV Status: Infusion continued upon transfer ak1 23:17 Drug: fentaNYL (PF) 25 mcg Route: IVP; Site: left antecubital; ak1 23:17 Follow up: Response: No adverse reaction; Pain is decreased; RASS: Alert and Calm (0) ak1 Point of Care Testing: Guaiac: 18:37 Stool Guaiac: Positive; Stool Hemoccult Control: Pass; bp Outcome: 19:59 ER care complete, transfer ordered by . cp 22:15 Transferred by ground EMS to [facility], Transfer form completed. ak1 X-rays sent w/ patient. Note: report given to Elaine 22:15 Condition: stable 22:15 Instructed on the need for transfer. 23:18 Patient left the ED. ak1 Signatures: Dispatcher [employer] EDPippa Allen RN RN aj1 Claudine Garcia RN RN ak1 Gabriele Riddle PA PA cp Jordan, Nathan nj Espinosa, Orlando oe Peltier, Brian, RN RN bp Anna Palma 3 Gabo Cobos ag5 Corrections: (The following items were deleted from the chart) 19:06 19:05 Inserted saline lock: 22 gauge forearm, using aseptic technique. oe oe
[2019-07-09] MEDS ORDERED: FENTANYL CITR 100 MCG/2 ML ONE (22:59)
--- NOTE | 2019-07-10 07:46 | EKG ---
Test Date: 2019-07-09 Test Time: 17:43:52 Turn Out Worker: BILLY MEASUREMENT RESULTS: Intervals: Rate: 74 [place]: 160 QRSD: 76 QT: 430 QTc: 477 [place]: P: 60 [place]: 160 QRS: 56 T: 50 INTERPRETIVE STATEMENTS: Normal sinus rhythm Normal ECG Compared to ECG 12/13/2017 18:28:54 Atrial premature complex(es) no longer present Electronically Signed On 07-10-19 07:45:21 CDT by Roland Rodriguez
== END 2019-07-09 23:18 | disposition short-term general hospital (02) ==
LOC: ER 16:34
DX: D63.8 Anemia in other chronic diseases classified elsewhere (principal); K92.2 Gastrointestinal hemorrhage, unspecified; G89.29 Other chronic pain; Z96.643 Presence of artificial hip joint, bilateral
CPT/HCPCS: 93005; 85025; 80048; 36415; 80320; 86900; 83735; 86850; 85610; 86901; 80076; 81003; 84484; 83690; 83880; 74177; 96375; 96374; 99285; Q9967; C9113; J3010; P9016 ×2

== ENCOUNTER 2023-06-20 10:05 | Inpatient (IN) | payer OTHER, BC ==
--- OUTSIDE RECORDS SUMMARY | 2023-06-20 10:19 | XMS REPORT | Continuity of Care Document ---
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 area(s) 4 ity of e 0.25% 00:00: (four) [place] ([facility] 00 times Medical SOLUTION) daily. Branch solution chlorhexidi 2021-0 Yes [id number] Apply to [facility] ne 4 % 9-13 area(s) ity of external 00:00: once daily [place] liquid 00 as needed Medical for Wound Branch care. sodium 2020-0 Yes [id number] Apply to [facility] hypochlorit -13 area(s) 4 ity of e 0.25% 00:00: (four) [place] ([facility] 00 times Medical SOLUTION) daily. Branch solution chlorhexidi Yes [id number] Apply to [facility] ne 4 % -13 area(s) ity of external 00:00: once daily [place] liquid 00 as needed Medical for Wound Branch care. sodium 2020-0 3- No [id number] Apply to [facility] hypochlorit -13 08-08 area(s) 4 it y of e 0.25% 00:00: 00:00 (four) [place] ([facility] 00 :00 times Medical SOLUTION) daily. Branch solution chlorhexidi 2020-0 2022- No [id number] Apply to [facility] ne 4 % 07-16-08 area(s) ity of external 00:00: 00:00 once daily [place] liquid 00 :00 as needed Medical for Wound Branch care. amoxicillin 2020-1- No [id number] 1{tbl} Take 1 [facility] -clavulanat 07-16-21 tablet by it y of e 00:00: 04:59 mouth 2 [place] (AUGMENTIN) 00 :00 (two) Medical 875-125 mg times Branch per tablet daily for 7 days. ALPRAZOLAM Yes [id number] 1mg TAKE 1 [facility] 1 mg tablet 8-27 TABLET BY ity of 00:00: MOUTH 2 [place] 00 (TWO) Medical TIMES Branch DAILY NEEDED (ANXIETY). ALPRAZOLAM Yes [id number] 1mg TAKE 1 [facility] 1 mg tablet 8-27 TABLET BY ity of 00:00: MOUTH 2 [place] 00 (TWO) Medical TIMES Branch DAILY NEEDED (ANXIETY). ALPRAZOLAM 2020-0 Yes [id number] 1mg TAKE 1 [facility] 1 mg tablet 8-27 TABLET BY ity of 00:00: MOUTH 2 [place] 00 (TWO) Medical TIMES Branch DAILY NEEDED (ANXIETY). ALPRAZOLAM 2020-0 Yes [id number] 1mg TAKE 1 [facility] 1 mg tablet 8-27 TABLET BY ity of 00:00: MOUTH 2 (TWO) Medical TIMES Branch DAILY NEEDED (ANXIETY). ALPRAZOLAM 2020-0 Yes [id number] 1mg TAKE 1 [facility] 1 mg tablet 8-27 TABLET BY ity of 00:00: MOUTH 2 (TWO) Medical TIMES Branch DAILY NEEDED (ANXIETY). ALPRAZOLAM 2020-0 Yes [id number] 1mg TAKE 1 [facility] 1 mg tablet 8-27 TABLET BY ity of 00:00: MOUTH 2 (TWO) Medical TIMES Branch DAILY NEEDED (ANXIETY). ALPRAZOLAM 2020-0 Yes [id number] 1mg TAKE 1 [facility] 1 mg tablet 8-27 TABLET BY ity of 00:00: MOUTH 2 (TWO) Medical TIMES Branch DAILY NEEDED (ANXIETY). ALPRAZOLAM 2020-0 2023- No [id number] 1mg TAKE 1 [facility] 1 mg tablet 8-27 08-08 TABLET BY it y of 00:00: 00:00 MOUTH 2 00 :00 (TWO) Medical TIMES Branch DAILY NEEDED (ANXIETY). gabapentin 2020-0 Yes [id number] 800mg Take 1 [facility] 800 mg 6-15 tablet by ity of tablet 00:00: mouth (three) Medical times Branch daily. gabapentin 2020-0 Yes [id number] 800mg Take 1 [facility] 800 mg 6-15 tablet by ity of tablet 00:00: mouth (three) Medical times Branch daily. gabapentin 2020-0 Yes [id number] 800mg Take 1 [facility] 800 mg 6-15 tablet by ity of tablet 00:00: mouth (three) Medical times Branch daily. gabapentin 2020-0 Yes [id number] 800mg Take 1 [facility] 800 mg 6-15 tablet by ity of tablet 00:00: mouth 3 (three) Medical times Branch daily. gabapentin 2021-0 Yes [id number] 800mg Take 1 [facility] 800 mg 6-15 tablet by ity of tablet 00:00: mouth 3 (three) Medical times Branch daily. gabapentin 2021-0 Yes [id number] 800mg Take 1 [facility] 800 mg 6-15 tablet by ity of tablet 00:00: mouth 3 (three) Medical times Branch daily. gabapentin 2021-0 Yes [id number] 800mg Take 1 [facility] 800 mg 6-15 tablet by ity of tablet 00:00: mouth 3 [place] 00 (three) Medical times Branch daily. gabapentin 2020-0 2023- No [id number] 800mg Take 1 [facility] 800 mg 6-15 08-08 tablet by ity of tablet 00:00: 00:00 mouth 3 [place] 00 :00 (three) Medical times Branch daily. HYDROcodone 0 Yes 1{tbl} Take 1 [facility] -acetaminop 1-12 tablet by ity of hen 10-325 10:15: mouth 3 [place] mg tablet 14 (three) Medical times Branch daily. HYDROcodone 2020-0 Yes 1{tbl} Take 1 [facility] -acetaminop 1-12 tablet by ity of hen 10-325 10:15: mouth 3 [place] mg tablet 14 (three) Medical times Branch daily. HYDROcodone 0 Yes 1{tbl} Take 1 [facility] -acetaminop 1-12 tablet by ity of hen 10-325 10:15: mouth 3 [place] mg tablet 14 (three) Medical times Branch daily. HYDROcodone 0 Yes 1{tbl} Take 1 [facility] -acetaminop 1-12 tablet by ity of hen 10-325 10:15: mouth 3 [place] mg tablet 14 (three) Medical times Branch daily. HYDROcodone 0 Yes 1{tbl} Take 1 [facility] -acetaminop 1-12 tablet by ity of hen 10-325 10:15: mouth 3 [place] mg tablet 14 (three) Medical times Branch daily. HYDROcodone 0 Yes 1{tbl} Take 1 [facility] -acetaminop 1-12 tablet by ity of hen 10-325 10:15: mouth 3 [place] mg tablet 14 (three) Medical times Branch daily. HYDROcodone 2020-0 Yes 1{tbl} Take 1 [facility] -acetaminop 1-12 tablet by ity of hen 10-325 10:15: mouth 3 [place] mg tablet 14 (three) Medical times Branch daily. naproxen 2020-0 Yes [id number] 500mg Take 1 [facility] 500 mg 1-12 tablet by ity of tablet 00:00: mouth 2 [place] 00 (two) Medical times Branch daily with meals. naproxen 2021-0 Yes [id number] 500mg Take 1 [facility] 500 mg 1-12 tablet by ity of tablet 00:00: mouth [place] (two) Medical times Branch daily with meals. naproxen 2021-0 Yes [id number] 500mg Take 1 [facility] 500 mg 1-12 tablet by ity of tablet 00:00: mouth 2 [place] (two) Medical times Branch daily with meals. naproxen 1-0 Yes [id number] 500mg Take 1 [facility] 500 mg 1-12 tablet by ity of tablet 00:00: mouth [place] (two) Medical times Branch daily with meals. naproxen 1-0 Yes [id number] 500mg Take 1 [facility] 500 mg 1-12 tablet by ity of tablet 00:00: mouth [place] (two) Medical times Branch daily with meals. naproxen 1-0 Yes [id number] 500mg Take 1 [facility] 500 mg 1-12 tablet by ity of tablet 00:00: mouth [place] (two) Medical times Branch daily with meals. naproxen 2020-0 Yes [id number] 500mg Take 1 [facility] 500 mg 1-12 tablet by ity of tablet 00:00: mouth [place] (two) Medical times Branch daily with meals. naproxen 2020-0 2023- No [id number] 500mg Take 1 [facility] 500 mg 1-12 08-08 tablet by ity of tablet 00:00: 00:00 mouth 2 [place] 00 :00 (two) Medical times Branch daily with meals. ALPRAZolam 2020-1 Yes 2mg Take 2 mg [facility] 2 mg tablet 0-28 by mouth 3 it y of 00:00: (three) [place] 00 times Medical daily. Branch ALPRAZolam 2020-1 Yes 2mg Take 2 mg [facility] 2 mg tablet 0-28 by mouth 3 it y of 00:00: (three) [place] 00 times Medical daily. Branch ALPRAZolam 2020-1 Yes 2mg Take 2 mg [facility] 2 mg tablet 0-28 by mouth 3 it y of 00:00: (three) [place] 00 times Medical daily. Branch ALPRAZolam 2020-1 Yes 2mg Take 2 mg [facility] 2 mg tablet 0-28 by mouth 3 it y of 00:00: (three) [place] 00 times Medical daily. Branch ALPRAZolam 2020-1 Yes 2mg Take 2 mg [facility] 2 mg tablet 0-28 by mouth 3 it y of 00:00: (three) [place] 00 times Medical daily. Branch ALPRAZolam 2020-1 Yes 2mg Take 2 mg [facility] 2 mg tablet 0-28 by mouth 3 it y of 00:00: (three) [place] 00 times Medical daily. Branch ALPRAZolam 2020- Yes 2mg Take 2 mg [facility] 2 mg tablet 0-28 by mouth 3 it y of 00:00: (three) [place] 00 times Medical daily. Branch ALPRAZolam 2019-2022- No 2mg Take 2 mg [facility] 2 mg tablet 0-28 08-08 by mouth 3 i ty of 00:00: 00:00 (three) [place] 00 :00 times Medical daily. Branch morphine ER 2020-0 Yes [id number] 60mg Take 1 [facility] 60 mg 12 hr 8-06 tablet by ity of tablet 00:00: mouth [place] 00 every 12 Medical (twelve) Branch hours. Indication s: chronic pain morphine ER 2020-0 Yes [id number] 60mg Take 1 [facility] ers 60 mg 12 hr 8-06 tablet by ity of tablet 00:00: mouth [place] 00 every 12 Medical (twelve) Branch hours. Indication s: chronic pain morphine ER 2020-0 Yes [id number] 60mg Take 1 [facility] ers 60 mg 12 hr 8-06 tablet by ity of tablet 00:00: mouth [place] 00 every 12 Medical (twelve) Branch hours. Indication s: chronic pain morphine ER 2020-0 Yes [id number] 60mg Take 1 [facility] ers 60 mg 12 hr 8-06 tablet by ity of tablet 00:00: mouth [place] 00 every 12 Medical (twelve) Branch hours. Indication s: chronic pain morphine ER 2020-0 Yes [id number] 60mg Take 1 [facility] ers 60 mg 12 hr 8-06 tablet by ity of tablet 00:00: mouth [place] 00 every 12 Medical (twelve) Branch hours. Indication s: chronic pain morphine ER 2020-0 Yes [id number] 60mg Take 1 [facility] ers 60 mg 12 hr 8-06 tablet by ity of tablet 00:00: mouth [place] 00 every 12 Medical (twelve) Branch hours. Indication s: chronic pain morphine ER 2020-0 Yes [id number] 60mg Take 1 [facility] ers 60 mg 12 hr 8-06 tablet by ity of tablet 00:00: mouth [place] 00 every 12 Medical (twelve) Branch hours. Indication s: chronic pain morphine ER 2020-0 2022- No [id number] 60mg Take 1 [facility] vers 60 mg 12 hr 8-06 08-08 tablet by it y of tablet 00:00: 00:00 mouth [place] 00 :00 every 12 Medical (twelve) Branch hours. Indication s: chronic pain Saline 2020-0 No Notes: [facility] Flush 0.9% 7-24 (Same as: l 21:09: BD Cool 00 Posiflush) Sodium 2020-0 No 1,000 mL, Memori a Chloride 7-24 1,000 l 0.9% 21:09: ml/hr, Sushil (Bolus) IV 00 Infuse Over: 1 hr, Route: IV, 1,000, Drug form: INJ, ONCE, Priority: STAT, Dosing Weight 54.545 kg, Start date: 05/26/20 16:09:00 CDT, Stop date: 05/26/20 16:09:00 CDT, 0 Saline 2020-0 No Notes: [facility] Flush 0.9% 7-24 (Same as: l 21:09: BD Sushil 00 Posiflush) Sodium 2020-0 No 1,000 mL, [facility] a Chloride 7-24 1,000 l 0.9% 21:09: ml/hr, Sushil (Bolus) IV 00 Infuse Over: 1 hr, Route: IV, 1,000, Drug form: INJ, ONCE, Priority: STAT, Dosing Weight 54.545 kg, Start date: 05/26/20 16:09:00 CDT, Stop date: 05/26/20 16:09:00 CDT, 0 Saline 2020-0 No Notes: [facility] Flush 0.9% 7-24 (Same as: l 21:09: BD Sushil 00 Posiflush) Sodium 2020-0 No 1,000 mL, [facility] a Chloride 7-24 1,000 l 0.9% 21:09: ml/hr, Cool (Bolus) IV 00 Infuse Over: 1 hr, Route: IV, 1,000, Drug form: INJ, ONCE, Priority: STAT, Dosing Weight 54.545 kg, Start date: 05/26/20 16:09:00 CDT, Stop date: 05/26/20 16:09:00 CDT, 0 Saline 2020-0 No Notes: [facility] Flush 0.9% 7-24 (Same as: l 21:09: BD Cool 00 Posiflush) Sodium 2020-0 No 1,000 mL, [facility] a Chloride 7-24 1,000 l 0.9% 21:09: ml/hr, Cool (Bolus) IV 00 Infuse Over: 1 hr, Route: IV, 1,000, Drug form: INJ, ONCE, Priority: STAT, Dosing Weight 54.545 kg, Start date: 05/26/20 16:09:00 CDT, Stop date: 05/26/20 16:09:00 CDT, 0 Saline 2020-0 No Notes: [facility] Flush 0.9% 7-24 (Same as: l 21:09: BD Sushil 00 Posiflush) Sodium 2020-0 No 1,000 mL, [facility] a Chloride 7-24 1,000 l 0.9% 21:09: ml/hr, Cool (Bolus) IV 00 Infuse Over: 1 hr, Route: IV, 1,000, Drug form: INJ, ONCE, Priority: STAT, Dosing Weight 54.545 kg, Start date: 05/26/20 16:09:00 CDT, Stop date: 05/26/20 16:09:00 CDT, 0 Saline 2020-0 No Notes: [facility] Flush 0.9% 7-24 (Same as: l 21:09: BD Cool 00 Posiflush) Sodium 2020-0 No 1,000 mL, Mem[facility] a Chloride 7-24 1,000 l 0.9% 21:09: ml/hr, Cool (Bolus) IV 00 Infuse Over: 1 hr, Route: IV, 1,000, Drug form: INJ, ONCE, Priority: STAT, Dosing Weight 54.545 kg, Start date: 05/26/20 16:09:00 CDT, Stop date: 05/26/20 16:09:00 CDT, 0 Saline 2020-0 No Notes: [facility] Flush 0.9% 7-24 (Same as: l 21:09: BD Cool 00 Posiflush) Sodium 2020-0 No 1,000 mL, [facility] a Chloride 7-24 1,000 l 0.9% 21:09: ml/hr, Cool (Bolus) IV 00 Infuse Over: 1 hr, Route: IV, 1,000, Drug form: INJ, ONCE, Priority: STAT, Dosing Weight 54.545 kg, Start date: 05/26/20 16:09:00 CDT, Stop date: 05/26/20 16:09:00 CDT, 0 Saline 2020-0 No Notes: [facility] Flush 0.9% 7-24 (Same as: l 21:09: BD Cool 00 Posiflush) Sodium 2020-0 No 1,000 mL, [facility] a Chloride 7-24 1,000 l 0.9% 21:09: ml/hr, Sushil (Bolus) IV 00 Infuse Over: 1 hr, Route: IV, 1,000, Drug form: INJ, ONCE, Priority: STAT, Dosing Weight 54.545 kg, Start date: 05/26/20 16:09:00 CDT, Stop date: 05/26/20 16:09:00 CDT, 0 gabapentin 2019-0 Yes 800mg Q.5D Take [address] [facility] [address] [facility] (NEURONTIN) 9-11 [facility] by [facility] MG 14:14: mouth 2 Medical tablet 47 (two) Center times daily. polyethylen 2019-0 Yes 17g QD Take [address] [facility] glycol 9-11 by mouth [facility] (GLYCOLAX) 00:00: daily. Medic al 17 00 Center gram/dose powder prochlorper 2019-[address] [facility] azine 9-03 [facility] (COMPAZINE) 00:00: Medica l 10 MG 00 Center tablet tiZANidine 2018-0 Yes 2mg Q.5D Take [address] [facility] (ZANAFLEX) 8-28 by mouth 2 [place] [facility] 2 MG tablet 00:00: (two) Medic al 00 times Center daily. ALPRAZolam 2019-0 Yes 1mg [id number] Take [address] [facility] (XANAX) 1 8-01 [id number] by mouth 3 [facility] tablet 00:00: 3D (three) Medic al 00 times Center daily. lactulose 2019-0 Yes as needed [facility] (CHRONULAC) 6-27 . [facility] 10 gram/15 00:00: Medical mL solution 00 Center tramadol 2016-11 Yes 50 mg = 1 [facility] hydrochlori 2-12 tab, PO, l de 50 MG 08:11: Q4H, PRN Agnes nn Oral Tablet 00 for pain, [Ultram] X 3 day, # 11 tab, 0 Refill(s) tramadol 2016-11 Yes 50 mg = 1 [facility] hydrochlori 2-12 tab, PO, l de 50 MG 08:11: Q4H, PRN [place] nn Oral Tablet 00 for pain, [Ultram] X 3 day, # 11 tab, 0 Refill(s) tramadol 2016-11 Yes 50 mg = 1 [facility] hydrochlori 2-12 tab, PO, l de 50 MG 08:11: Q4H, PRN Agnes nn Oral Tablet 00 for pain, [Ultram] X 3 day, # 11 tab, 0 Refill(s) tramadol 2016-11 Yes 50 mg = 1 [facility] hydrochlori 2-12 tab, PO, l de 50 MG 08:11: Q4H, PRN Agnes nn Oral Tablet 00 for pain, [Ultram] X 3 day, # 11 tab, 0 Refill(s) tramadol 2016-11 Yes 50 mg = 1 [facility] hydrochlori 2-12 tab, PO, l de 50 MG 08:11: Q4H, PRN Agnes nn Oral Tablet 00 for pain, [Ultram] X 3 day, # 11 tab, 0 Refill(s) tramadol 2016-11 Yes 50 mg = 1 [facility] hydrochlori 2-12 tab, PO, l de 50 MG 08:11: Q4H, PRN Agnes nn Oral Tablet 00 for pain, [Ultram] X 3 day, # 11 tab, 0 Refill(s) tramadol 2016-11 Yes 50 mg = 1 [facility] hydrochlori 2-12 tab, PO, l de 50 MG 08:11: Q4H, PRN [place] nn Oral Tablet 00 for pain, [Ultram] X 3 day, # 11 tab, 0 Refill(s) tramadol 2016-11 Yes 50 mg = 1 [facility] hydrochlori 2-12 tab, PO, l de 50 MG 08:11: Q4H, PRN [place] nn Oral Tablet 00 for pain, [Ultram] X 3 day, # 11 tab, 0 Refill(s) Fentanyl 2016-11 No 50 [facility] 2-12 microgram, l 06:50: Route: Sushil 00 IVP, ONCE, Dosing Weight 61.364, kg, Priority: STAT, Start date: 10/14/17 0:50:00 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, Stop date: 10/14/17 0:50:00 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 Fentanyl 2017- No 50 [facility] 2-12 microgram, l 06:50: Route: Sushil 00 IVP, ONCE, Dosing Weight 61.364, kg, Priority: STAT, Start date: 10/14/17 0:50:00 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, Stop date: 10/14/17 0:50:00 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 Fentanyl 2016- No 50 [facility] 2-12 microgram, l 06:50: Route: Cool 00 IVP, ONCE, Dosing Weight 61.364, kg, Priority: STAT, Start date: 10/14/17 0:50:00 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, Stop date: 10/14/17 0:50:00 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 Fentanyl 2017- No 50 [facility] 2-12 microgram, l 06:50: Route: Sushil 00 IVP, ONCE, Dosing Weight 61.364, kg, Priority: STAT, Start date: 10/14/17 0:50:00 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, Stop date: 10/14/17 0:50:00 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 Fentanyl 2017- No 50 [facility] 2-12 microgram, l 06:50: Route: Cool 00 IVP, ONCE, Dosing Weight 61.364, kg, Priority: STAT, Start date: 10/14/17 0:50:00 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, Stop date: 10/14/17 0:50:00 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 Fentanyl 2017- No 50 [facility] 2-12 microgram, l 06:50: Route: Cool 00 IVP, ONCE, Dosing Weight 61.364, kg, Priority: STAT, Start date: 10/14/17 0:50:00 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, Stop date: 10/14/17 0:50:00 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 Fentanyl 2017- No 50 [facility] 2-12 microgram, l 06:50: Route: Sushil 00 IVP, ONCE, Dosing Weight 61.364, kg, Priority: STAT, Start date: 10/14/17 0:50:00 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, Stop date: 10/14/17 0:50:00 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 Fentanyl 2016- No 50 [facility] 2-12 microgram, l 06:50: Route: Cool 00 IVP, ONCE, Dosing Weight 61.364, kg, Priority: STAT, Start date: 10/14/17 0:50:00 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, Stop date: 10/14/17 0:50:00 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 Morphine 2017-1 No 4 mg, [facility] 2-12 Route: l 05:47: IVP, ONCE, Sushil Dosing Weight 61.364, kg, Priority: STAT, Start date: 10/13/17 23:47:00 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, Stop date: 10/13/17 23:47:00 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 Morphine 2017-1 No 4 mg, [facility] 2-12 Route: l 05:47: IVP, ONCE, Cool Dosing Weight 61.364, kg, Priority: STAT, Start date: 10/13/17 23:47:00 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, Stop date: 10/13/17 23:47:00 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 Morphine 2017-1 No 4 mg, [facility] 2-12 Route: l 05:47: IVP, ONCE, Cool Dosing Weight 61.364, kg, Priority: STAT, Start date: 10/13/17 23:47:00 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, Stop date: 10/13/17 23:47:00 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 Morphine 2017-1 No 4 mg, [facility] 2-12 Route: l 05:47: IVP, ONCE, Sushil Dosing Weight 61.364, kg, Priority: STAT, Start date: 10/13/17 23:47:00 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, Stop date: 10/13/17 23:47:00 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 Morphine 2017-1 No 4 mg, [facility] 2-12 Route: l 05:47: IVP, ONCE, Sushil Dosing Weight 61.364, kg, Priority: STAT, Start date: 10/13/17 23:47:00 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, Stop date: 10/13/17 23:47:00 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 Morphine 2017-1 No 4 mg, [facility] 2-12 Route: l 05:47: IVP, ONCE, Sushil Dosing Weight 61.364, kg, Priority: STAT, Start date: 10/13/17 23:47:00 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, Stop date: 10/13/17 23:47:00 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 Morphine 2017-1 No 4 mg, [facility] 2-12 Route: l 05:47: IVP, ONCE, Sushil Dosing Weight 61.364, kg, Priority: STAT, Start date: 10/13/17 23:47:00 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, Stop date: 10/13/17 23:47:00 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 Morphine 2016- No 4 mg, [facility] 2-12 Route: l 05:47: IVP, ONCE, Dosing Weight 61.364, kg, Priority: STAT, Start date: 10/13/17 23:47:00 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, Stop date: 10/13/17 23:47:00 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 Motrin 2016-11 No Notes: [facility] 2-12 (Same as: l 03:10: Advil) Sushil 00 Give with food. Motrin 2016-11 No Notes: [facility] 2-12 (Same as: l 03:10: Advil) Cool 00 Give with food. Motrin 2016-11 No Notes: [facility] 2-12 (Same as: l 03:10: Advil) Cool 00 Give with food. Motrin 2016-11 No Notes: [facility] 2-12 (Same as: l 03:10: Advil) Sushil 00 Give with food. Motrin 2016-11 No Notes: [facility] 2-12 (Same as: l 03:10: Advil) Sushil 00 Give with food. Motrin 2016-11 No Notes: [facility] 2-12 (Same as: l 03:10: Advil) Cool 00 Give with food. Motrin 2016-11 No Notes: [facility] 2-12 (Same as: l 03:10: Advil) Sushil 00 Give with food. Motrin 2016-11 No Notes: [facility] 2-12 (Same as: l 03:10: Advil) Cool 00 Give with food. propofol 2016- No 50 mg, [facility] 1-05 Route: IV, l 08:40: ONCE, Dosing Weight 61.364, kg, Start date: 09/07/17 2:40:00 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, Stop date: 09/07/17 2:40:00 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 propofol 2017- No 50 mg, [facility] 1-05 Route: IV, l 08:40: ONCE, Sushil 00 Dosing Weight 61.364, kg, Start date: 09/07/17 2:40:00 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, Stop date: 09/07/17 2:40:00 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 propofol 2016- No 50 mg, [facility] 1-05 Route: IV, l 08:40: ONCE, Sushil 00 Dosing Weight 61.364, kg, Start date: 09/07/17 2:40:00 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, Stop date: 09/07/17 2:40:00 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 propofol 2017- No 50 mg, [facility] 1-05 Route: IV, l 08:40: ONCE, Dosing Weight 61.364, kg, Start date: 09/07/17 2:40:00 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, Stop date: 09/07/17 2:40:00 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 propofol 2017- No 50 mg, [facility] 1-05 Route: IV, l 08:40: ONCE, Cool 00 Dosing Weight 61.364, kg, Start date: 09/07/17 2:40:00 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, Stop date: 09/07/17 2:40:00 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 propofol 2017- No 50 mg, [facility] 1-05 Route: IV, l 08:40: ONCE, Dosing Weight 61.364, kg, Start date: 09/07/17 2:40:00 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, Stop date: 09/07/17 2:40:00 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 propofol 2017- No 50 mg, [facility] 1-05 Route: IV, l 08:40: ONCE, Dosing Weight 61.364, kg, Start date: 09/07/17 2:40:00 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, Stop date: 09/07/17 2:40:00 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 propofol 2017- No 50 mg, [facility] 1-05 Route: IV, l 08:40: ONCE, Dosing Weight 61.364, kg, Start date: 09/07/17 2:40:00 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, Stop date: 09/07/17 2:40:00 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 morphine 2017- No 2 mg, [facility] Sulfate 1-05 Route: l 06:10: IVP, ONCE, Dosing Weight 61.364, kg, Priority: STAT, Start date: 09/07/17 1:10:00 CDT, Stop date: 09/07/17 1:10:00 CDT morphine 2016- No 2 mg, [facility] Sulfate 1-05 Route: l 06:10: IVP, ONCE, Dosing Weight 61.364, kg, Priority: STAT, Start date: 09/07/17 1:10:00 CDT, Stop date: 09/07/17 1:10:00 CDT morphine 2017-1 No 2 mg, [facility] Sulfate 1-05 Route: l 06:10: IVP, ONCE, Sushil Dosing Weight 61.364, kg, Priority: STAT, Start date: 09/07/17 1:10:00 CDT, Stop date: 09/07/17 1:10:00 CDT morphine 2017-1 No 2 mg, [facility] Sulfate 1-05 Route: l 06:10: IVP, ONCE, Sushil Dosing Weight 61.364, kg, Priority: STAT, Start date: 09/07/17 1:10:00 CDT, Stop date: 09/07/17 1:10:00 CDT morphine 2017-1 No 2 mg, [facility] Sulfate 1-05 Route: l 06:10: IVP, ONCE, Cool Dosing Weight 61.364, kg, Priority: STAT, Start date: 09/07/17 1:10:00 CDT, Stop date: 09/07/17 1:10:00 CDT morphine 2017-1 No 2 mg, [facility] Sulfate 1-05 Route: l 06:10: IVP, ONCE, Cool Dosing Weight 61.364, kg, Priority: STAT, Start date: 09/07/17 1:10:00 CDT, Stop date: 09/07/17 1:10:00 CDT morphine 2017-1 No 2 mg, [facility] Sulfate 1-05 Route: l 06:10: IVP, ONCE, Cool Dosing Weight 61.364, kg, Priority: STAT, Start date: 09/07/17 1:10:00 CDT, Stop date: 09/07/17 1:10:00 CDT morphine 2017-1 No 2 mg, [facility] Sulfate 1-05 Route: l 06:10: IVP, ONCE, Sushil Dosing Weight 61.364, kg, Priority: STAT, Start date: 09/07/17 1:10:00 CDT, Stop date: 09/07/17 1:10:00 CDT Zofran 2017-1 No 4 mg, [facility] 1-05 Route: l 02:50: IVP, Drug Cool 00 form: INJ, ONCE, Dosing Weight 61.364, kg, Priority: STAT, Start date: 09/06/17 21:50:00 CDT, Stop date: 09/06/17 21:50:00 CDT Zofran 2017-1 No 4 mg, [facility] 1-05 Route: l 02:50: IVP, Drug Cool 00 form: INJ, ONCE, Dosing Weight 61.364, kg, Priority: STAT, Start date: 09/06/17 21:50:00 CDT, Stop date: 09/06/17 21:50:00 CDT Zofran 2016- No 4 mg, [facility] 1-05 Route: l 02:50: IVP, Drug Sushil 00 form: INJ, ONCE, Dosing Weight 61.364, kg, Priority: STAT, Start date: 09/06/17 21:50:00 CDT, Stop date: 09/06/17 21:50:00 CDT Zofran 2017- No 4 mg, [facility] 1-05 Route: l 02:50: IVP, Drug Cool 00 form: INJ, ONCE, Dosing Weight 61.364, kg, Priority: STAT, Start date: 09/06/17 21:50:00 CDT, Stop date: 09/06/17 21:50:00 CDT Zofran 2016- No 4 mg, [facility] 1-05 Route: l 02:50: IVP, Drug Sushil 00 form: INJ, ONCE, Dosing Weight 61.364, kg, Priority: STAT, Start date: 09/06/17 21:50:00 CDT, Stop date: 09/06/17 21:50:00 CDT Zofran 2017- No 4 mg, [facility] 1-05 Route: l 02:50: IVP, Drug Sushil 00 form: INJ, ONCE, Dosing Weight 61.364, kg, Priority: STAT, Start date: 09/06/17 21:50:00 CDT, Stop date: 09/06/17 21:50:00 CDT Zofran 2017- No 4 mg, [facility] 1-05 Route: l 02:50: IVP, Drug Sushil 00 form: INJ, ONCE, Dosing Weight 61.364, kg, Priority: STAT, Start date: 09/06/17 21:50:00 CDT, Stop date: 09/06/17 21:50:00 CDT Zofran 2017- No 4 mg, [facility] 1-05 Route: l 02:50: IVP, Drug Cool 00 form: INJ, ONCE, Dosing Weight 61.364, kg, Priority: STAT, Start date: 09/06/17 21:50:00 CDT, Stop date: 09/06/17 21:50:00 CDT morphine 2017-1 No 4 mg, [facility] Sulfate 1-05 Route: l 02:49: IVP, ONCE, Cool 00 Dosing Weight 61.364, kg, Priority: STAT, Start date: 09/06/17 21:49:00 CDT, Stop date: 09/06/17 21:49:00 CDT morphine 2017-1 No 4 mg, [facility] Sulfate 1-05 Route: l 02:49: IVP, ONCE, Sushil 00 Dosing Weight 61.364, kg, Priority: STAT, Start date: 09/06/17 21:49:00 CDT, Stop date: 09/06/17 21:49:00 CDT morphine 2017-1 No 4 mg, [facility] Sulfate 1-05 Route: l 02:49: IVP, ONCE, Dosing Weight 61.364, kg, Priority: STAT, Start date: 09/06/17 21:49:00 CDT, Stop date: 09/06/17 21:49:00 CDT morphine 2017-1 No 4 mg, [facility] Sulfate 1-05 Route: l 02:49: IVP, ONCE, Dosing Weight 61.364, kg, Priority: STAT, Start date: 09/06/17 21:49:00 CDT, Stop date: 09/06/17 21:49:00 CDT morphine 2017-1 No 4 mg, [facility] Sulfate 1-05 Route: l 02:49: IVP, ONCE, Sushil 00 Dosing Weight 61.364, kg, Priority: STAT, Start date: 09/06/17 21:49:00 CDT, Stop date: 09/06/17 21:49:00 CDT morphine 2017-1 No 4 mg, [facility] Sulfate 1-05 Route: l 02:49: IVP, ONCE, Cool 00 Dosing Weight 61.364, kg, Priority: STAT, Start date: 09/06/17 21:49:00 CDT, Stop date: 09/06/17 21:49:00 CDT morphine 2017-1 No 4 mg, [facility] Sulfate 1-05 Route: l 02:49: IVP, ONCE, Sushil 00 Dosing Weight 61.364, kg, Priority: STAT, Start date: 09/06/17 21:49:00 CDT, Stop date: 09/06/17 21:49:00 CDT morphine 2017-1 No 4 mg, [facility] Sulfate 1-05 Route: l 02:49: IVP, ONCE, Cool Dosing Weight 61.364, kg, Priority: STAT, Start date: 09/06/17 21:49:00 CDT, Stop date: 09/06/17 21:49:00 CDT ondansetron 2017- No 4 mg, Mem[facility] ia 1-05 Route: l 01:02: IVP, Drug Sushil form: INJ, ONCE, Dosing Weight 61.364, kg, Priority: STAT, Start date: 09/06/17 20:02:00 CDT, Stop date: 09/06/17 20:02:00 CDT morphine 2017-1 No 4 mg, [facility] Sulfate 1-05 Route: l 01:02: IVP, ONCE, Cool Dosing Weight 61.364, kg, Priority: STAT, Start date: 09/06/17 20:02:00 CDT, Stop date: 09/06/17 20:02:00 CDT ondansetron 2017-1 No 4 mg, Mem[facility] ia 1-05 Route: l 01:02: IVP, Drug Cool 00 form: INJ, ONCE, Dosing Weight 61.364, kg, Priority: STAT, Start date: 09/06/17 20:02:00 CDT, Stop date: 09/06/17 20:02:00 CDT morphine 2017-1 No 4 mg, [facility] Sulfate 1-05 Route: l 01:02: IVP, ONCE, Sushil Dosing Weight 61.364, kg, Priority: STAT, Start date: 09/06/17 20:02:00 CDT, Stop date: 09/06/17 20:02:00 CDT ondansetron 2017-1 No 4 mg, Mem[facility] ia 1-05 Route: l 01:02: IVP, Drug Cool form: INJ, ONCE, Dosing Weight 61.364, kg, Priority: STAT, Start date: 09/06/17 20:02:00 CDT, Stop date: 09/06/17 20:02:00 CDT morphine 2017-1 No 4 mg, [facility] Sulfate 1-05 Route: l 01:02: IVP, ONCE, Cool 00 Dosing Weight 61.364, kg, Priority: STAT, Start date: 09/06/17 20:02:00 CDT, Stop date: 09/06/17 20:02:00 CDT ondansetron 2017-1 No 4 mg, Mem[facility] ia 1-05 Route: l 01:02: IVP, Drug Sushil 00 form: INJ, ONCE, Dosing Weight 61.364, kg, Priority: STAT, Start date: 09/06/17 20:02:00 CDT, Stop date: 09/06/17 20:02:00 CDT morphine 2017-1 No 4 mg, [facility] Sulfate 1-05 Route: l 01:02: IVP, ONCE, Cool Dosing Weight 61.364, kg, Priority: STAT, Start date: 09/06/17 20:02:00 CDT, Stop date: 09/06/17 20:02:00 CDT ondansetron 2017-1 No 4 mg, [facility] ia 1-05 Route: l 01:02: IVP, Drug Sushil form: INJ, ONCE, Dosing Weight 61.364, kg, Priority: STAT, Start date: 09/06/17 20:02:00 CDT, Stop date: 09/06/17 20:02:00 CDT morphine 2017-1 No 4 mg, [facility] Sulfate 1-05 Route: l 01:02: IVP, ONCE, Cool Dosing Weight 61.364, kg, Priority: STAT, Start date: 09/06/17 20:02:00 CDT, Stop date: 09/06/17 20:02:00 CDT ondansetron 2017-1 No 4 mg, [facility] 1-05 Route: l 01:02: IVP, Drug Sushil 00 form: INJ, ONCE, Dosing Weight 61.364, kg, Priority: STAT, Start date: 09/06/17 20:02:00 CDT, Stop date: 09/06/17 20:02:00 CDT morphine 2017-1 No 4 mg, [facility] Sulfate 1-05 Route: l 01:02: IVP, ONCE, Cool Dosing Weight 61.364, kg, Priority: STAT, Start date: 09/06/17 20:02:00 CDT, Stop date: 09/06/17 20:02:00 CDT ondansetron 2016- No 4 mg, [facility] 1-05 Route: l 01:02: IVP, Drug Cool form: INJ, ONCE, Dosing Weight 61.364, kg, Priority: STAT, Start date: 09/06/17 20:02:00 CDT, Stop date: 09/06/17 20:02:00 CDT morphine 2016- No 4 mg, [facility] Sulfate 1-05 Route: l 01:02: IVP, ONCE, Sushil 00 Dosing Weight 61.364, kg, Priority: STAT, Start date: 09/06/17 20:02:00 CDT, Stop date: 09/06/17 20:02:00 CDT ondansetron 2016- No 4 mg, [facility] 1-05 Route: l 01:02: IVP, Drug form: INJ, ONCE, Dosing Weight 61.364, kg, Priority: STAT, Start date: 09/06/17 20:02:00 CDT, Stop date: 09/06/17 20:02:00 CDT morphine 2016- No 4 mg, [facility] Sulfate 1-05 Route: l 01:02: IVP, ONCE, Sushil 00 Dosing Weight 61.364, kg, Priority: STAT, Start date: 09/06/17 20:02:00 CDT, Stop date: 09/06/17 20:02:00 CDT remove No Notes: . [facility] patch 3-30 l 21:00: Cool 00 remove No Notes: . [facility] patch 3-30 l 21:00: Sushil 00 remove No Notes: . [facility] patch 3-30 l 21:00: Cool 00 remove No Notes: . [facility] patch 3-30 l 21:00: Sushil 00 remove No Notes: . [facility] patch 3-30 l 21:00: Cool 00 remove No Notes: . [facility] patch 3-30 l 21:00: Sushil 00 remove No Notes: . [facility] patch 3-30 l 21:00: Cool 00 remove No Notes: . [facility] patch 3-30 l 21:00: Sushil 00 Dilaudid 2017-0 No Notes: [facility] 3-30 Same as: l 11:10: Dilaudid Sushil 00 Dilaudid 2017-0 No Notes: [facility] 3-30 Same as: l 11:10: Dilaudid Sushil 00 Dilaudid 2017-0 No Notes: [facility] 3-30 Same as: l 11:10: Dilaudid Sushil 00 Dilaudid 2017-0 No Notes: [facility] 3-30 Same as: l 11:10: Dilaudid Cool 00 Dilaudid 2016- No Notes: [facility] 3-30 Same as: l 11:10: Dilaudid Cool 00 Dilaudid 2017- No Notes: [facility] 3-30 Same as: l 11:10: Dilaudid Cool 00 Dilaudid 2016- No Notes: [facility] 3-30 Same as: l 11:10: Dilaudid Cool 00 Dilaudid No Notes: [facility] 3-30 Same as: l 11:10: Dilaudid Sushil 00 Lisinopril No Notes: [facility] ia 3-29 (Same as: l 14:00: Prinivil, Sushil 00 Zestril) Lisinopril 0 No Notes: [facility] ia 3-29 (Same as: l 14:00: Prinivil, Cool 00 Zestril) Lisinopril 2016-0 No Notes: [facility] ia 3-29 (Same as: l 14:00: Prinivil, Cool 00 Zestril) Lisinopril 2016-0 No Notes: [facility] ia 3-29 (Same as: l 14:00: Prinivil, Cool 00 Zestril) Lisinopril 2016-0 No Notes: [facility] ia 3-29 (Same as: l 14:00: Prinivil, Sushil 00 Zestril) Lisinopril 0 No Notes: [facility] ia 3-29 (Same as: l 14:00: Prinivil, Sushil 00 Zestril) Lisinopril 0 No Notes: [facility] ia 3-29 (Same as: l 14:00: Prinivil, Cool Zestril) Lisinopril 2016-0 No Notes: [facility] ia 3-29 (Same as: l 14:00: Prinivil, Sushil Zestril) Melatonin 2017-0 No 15 mg, Memori a 3- Route: SL, l 02:00: Drug form: Sushil 00 TAB, Bedtime, Dosing Weight 61.364, kg, Start date: 01/28/17 21:00:00 CDT, Duration: 30 day, Stop date: 02/26/17 21:00:00 CDT Melatonin 2017-0 No 15 mg, [facility] a 3- Route: SL, l 02:00: Drug form: Sushil 00 TAB, Bedtime, Dosing Weight 61.364, kg, Start date: 01/28/17 21:00:00 CDT, Duration: 30 day, Stop date: 02/26/17 21:00:00 CDT Melatonin 2016-0 No 15 mg, [facility] a 3- Route: SL, l 02:00: Drug form: Sushil 00 TAB, Bedtime, Dosing Weight 61.364, kg, Start date: 01/28/17 21:00:00 CDT, Duration: 30 day, Stop date: 02/26/17 21:00:00 CDT Melatonin 2016-0 No 15 mg, [facility] a 3- Route: SL, l 02:00: Drug form: Cool 00 TAB, Bedtime, Dosing Weight 61.364, kg, Start date: 01/28/17 21:00:00 CDT, Duration: 30 day, Stop date: 02/26/17 21:00:00 CDT Melatonin 2016-0 No 15 mg, [facility] a 3-29 Route: SL, l 02:00: Drug form: Sushil 00 TAB, Bedtime, Dosing Weight 61.364, kg, Start date: 01/28/17 21:00:00 CDT, Duration: 30 day, Stop date: 02/26/17 21:00:00 CDT Melatonin 2016-0 No 15 mg, Mem[facility] a 3-29 Route: SL, l 02:00: Drug form: Cool 00 TAB, Bedtime, Dosing Weight 61.364, kg, Start date: 01/28/17 21:00:00 CDT, Duration: 30 day, Stop date: 02/26/17 21:00:00 CDT Melatonin No 15 mg, [facility] a 3-29 Route: SL, l 02:00: Drug form: Cool 00 TAB, Bedtime, Dosing Weight 61.364, kg, Start date: 01/28/17 21:00:00 CDT, Duration: 30 day, Stop date: 02/26/17 21:00:00 CDT Melatonin No 15 mg, Mem[facility] a 329 Route: SL, l 02:00: Drug form: Cool 00 TAB, Bedtime, Dosing Weight 61.364, kg, Start date: 01/28/17 21:00:00 CDT, Duration: 30 day, Stop date: 02/26/17 21:00:00 CDT Docusate No Notes: [facility] Sodium 100 3-28 (Same as: l MG Oral 22:00: Colace) Cool Capsule 00 (Do Not [Colace] Crush) Docusate No Notes: [facility] Sodium 100 3-28 (Same as: l MG Oral 22:00: Colace) Cool Capsule 00 (Do Not [Colace] Crush) Docusate No Notes: [facility] Sodium 100 3-28 (Same as: l MG Oral 22:00: Colace) Cool Capsule 00 (Do Not [Colace] Crush) Docusate No Notes: [facility] Sodium 100 3-28 (Same as: l MG Oral 22:00: Colace) Sushil Capsule 00 (Do Not [Colace] Crush) Docusate No Notes: [facility] Sodium 100 3-28 (Same as: l MG Oral 22:00: Colace) Cool Capsule 00 (Do Not [Colace] Crush) Docusate No Notes: [facility] Sodium 100 3-28 (Same as: l MG Oral 22:00: Colace) Sushil Capsule 00 (Do Not [Colace] Crush) Docusate No Notes: [facility] Sodium 100 3-28 (Same as: l MG Oral 22:00: Colace) Cool Capsule 00 (Do Not [Colace] Crush) Docusate No Notes: [facility] Sodium 100 3-28 (Same as: l MG Oral 22:00: Colace) Cool Capsule 00 (Do Not [Colace] Crush) Alprazolam No Notes: [facility] ia 1 MG Oral 3-28 With food l Tablet 21:01: or milk Cool [Xanax] 00 (Same as: Xanax) Alprazolam No Notes: [facility] 1 MG Oral 3-28 With food l Tablet 21:01: or milk Sushil [Xanax] 00 (Same as: Xanax) Alprazolam No Notes: [facility] 1 MG Oral 3-28 With food l Tablet 21:01: or milk Sushil [Xanax] 00 (Same as: Xanax) Alprazolam No Notes: [facility] 1 MG Oral 3-28 With food l Tablet 21:01: or milk Sushil [Xanax] 00 (Same as: Xanax) Alprazolam No Notes: [facility] 1 MG Oral 3-28 With food l Tablet 21:01: or milk Cool [Xanax] 00 (Same as: Xanax) Alprazolam No Notes: [facility] 1 MG Oral 3-28 With food l Tablet 21:01: or milk Sushil [Xanax] 00 (Same as: Xanax) Alprazolam No Notes: [facility] 1 MG Oral 3-28 With food l Tablet 21:01: or milk Cool [Xanax] 00 (Same as: Xanax) Alprazolam No Notes: [facility] 1 MG Oral 3-28 With food l Tablet 21:01: or milk Sushil [Xanax] 00 (Same as: Xanax) Duragesic-5 No Notes: Josh seamus 0 3-28 (Same as: l 21:00: Duragesic) Sushil 00 Check for product integrity. Apply to intact skin "Remove old patch before applicatio n of new patch" Ancef + No Notes: [facility] sodium 3-28 (Same As: l chloride 21:00: Ancef, Cool 0.9% INJ 00 Kefzol) 100 mL MEDICATION WASTE Product Size: 1000 mg Product Wasted: ___ mg Duragesic-5 No Notes: Josh seamus 0 3-28 (Same as: l 21:00: Duragesic) Cool 00 Check for product integrity. Apply to intact skin "Remove old patch before applicatio n of new patch" Ancef No Notes: [facility] sodium 3-28 (Same As: l chloride 21:00: Ancef, Sushil 0.9% INJ 00 Kefzol) 100 mL MEDICATION WASTE Product Size: 1000 mg Product Wasted: ___ mg Duragesic-5 No Notes: Josh seamus 0 3-28 (Same as: l 21:00: Duragesic) Cool 00 Check for product integrity. Apply to intact skin "Remove old patch before applicatio n [facility] new patch" [facility]: [facility] 3-28 (Same As: l chloride 21:00: Ancef, Sushil 0.9% INJ 00 Kefzol) 100 mL MEDICATION WASTE Product Size: 1000 mg Product Wasted: ___ mg Duragesic-5 No Notes: Josh seamus 0 3-28 (Same as: l 21:00: Duragesic) Sushil 00 Check for product integrity. Apply to intact skin "Remove old patch before applicatio n of new patch" [facility]: [facility] sodium 3-28 (Same As: l chloride 21:00: Ancef, Sushil 0.9% INJ 00 Kefzol) 100 mL MEDICATION WASTE Product Size: 1000 mg Product Wasted: ___ mg Duragesic-5 No Notes: Josh seamus 0 3-28 (Same as: l 21:00: Duragesic) Cool 00 Check for product integrity. Apply to intact skin "Remove old patch before applicatio n of new patch" [facility]: [facility] sodium 3-28 (Same As: l chloride 21:00: Ancef, Sushil 0.9% INJ 00 Kefzol) 100 mL MEDICATION WASTE Product Size: 1000 mg Product Wasted: ___ mg Duragesic-5 No Notes: Josh seamus 0 3-28 (Same as: l 21:00: Duragesic) Cool 00 Check for product integrity. Apply to intact skin "Remove old patch before applicatio n of new patch" Ancef No Notes: [facility] sodium 3-28 (Same As: l chloride 21:00: Ancef, Sushil 0.9% INJ 00 Kefzol) 100 mL MEDICATION WASTE Product Size: 1000 mg Product Wasted: ___ mg Duragesic- No Notes: Josh seamus 0 3-28 (Same as: l 21:00: Duragesic) Sushil 00 Check for product integrity. Apply to intact skin "Remove old patch before applicatio n of new patch" Anc No Notes: [facility] sodium 3-28 (Same As: l chloride 21:00: Ancef, Sushil 0.9% INJ 00 Kefzol) 100 mL MEDICATION WASTE Product Size: 1000 mg Product Wasted: ___ mg Duragesic- No Notes: Josh seamus 0 3-28 (Same as: l 21:00: Duragesic) Cool 00 Check for product integrity. Apply to intact skin "Remove old patch before applicatio n of new patch" Ancef No Notes: [facility] sodium 3-28 (Same As: l chloride 21:00: Ancef, Cool 0.9% INJ 00 Kefzol) 100 mL MEDICATION WASTE Product Size: 1000 mg Product Wasted: ___ mg 72 HR No Notes: [facility] Fentanyl 3-28 (Same as: l 0.1 MG/HR 18:00: Duragesic) He rmann Transdermal 00 Check for Patch product integrity. Apply to intact skin "Remove old patch before applicatio n of new patch" 72 HR No Notes: [facility] Fentanyl 3-28 (Same as: l 0.1 MG/HR 18:00: Duragesic) He rmann Transdermal 00 Check for Patch product integrity. Apply to intact skin "Remove old patch before applicatio n of new patch" 72 HR No Notes: [facility] Fentanyl 3-28 (Same as: l 0.1 MG/HR 18:00: Duragesic) He rmann Transdermal 00 Check for Patch product integrity. Apply to intact skin "Remove old patch before applicatio n of new patch" 72 HR No Notes: [facility] Fentanyl 3-28 (Same as: l 0.1 MG/HR 18:00: Duragesic) He rmann Transdermal 00 Check for Patch product integrity. Apply to intact skin "Remove old patch before applicatio n of new patch" 72 HR No Notes: [facility] Fentanyl 3-28 (Same as: l 0.1 MG/HR 18:00: Duragesic) He rmann Transdermal 00 Check for Patch product integrity. Apply to intact skin "Remove old patch before applicatio n of new patch" 72 HR No Notes: [facility] Fentanyl 3-28 (Same as: l 0.1 MG/HR 18:00: Duragesic) He rmann Transdermal 00 Check for Patch product integrity. Apply to intact skin "Remove old patch before applicatio n of new patch" 72 HR No Notes: [facility] Fentanyl 3-28 (Same as: l 0.1 MG/HR 18:00: Duragesic) He rmann Transdermal 00 Check for Patch product integrity. Apply to intact skin "Remove old patch before applicatio n of new patch" 72 HR No Notes: [facility] Fentanyl 3-28 (Same as: l 0.1 MG/HR 18:00: Duragesic) He rmann Transdermal 00 Check for Patch product integrity. 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 (Same as: Tylenol Extra Strength) Acetaminoph No Notes: Max [facility]oria en 3-28 acetaminop l 17:00: hen 4000 Cool 00 mg/day (4 gm/day). (Same as: Tylenol Extra Strength) Hydromorpho No Notes: Josh seamus ne 3-28 (Same as: l 17:00: Dilaudid) Cool 00 conc = 0.5 mg/ml Hydromorph one [employer]ELTER Dose: ;Delay: ;Basal: Acetaminoph No Notes: Max [facility] en 3-28 acetaminop l 17:00: hen 4000 Cool 00 mg/day (4 gm/day). (Same as: Tylenol Extra Strength) Hydromorpho No Notes: Josh seamus ne 3-28 (Same as: l 17:00: Dilaudid) Cool 00 conc = 0.5 mg/ml Hydromorph one [employer]ELTER Dose: ;Delay: ;Basal: Acetaminoph No Notes: Max [facility] en 3-28 acetaminop l 17:00: hen 4000 Sushil 00 mg/day (4 gm/day). (Same as: Tylenol Extra Strength) Hydromorpho No Notes: Josh seamus ne 3-28 (Same as: l 17:00: Dilaudid) Cool 00 conc = 0.5 mg/ml Hydromorph one [employer]ELTER Dose: ;Delay: ;Basal: Acetaminoph No Notes: Max [facility] en 01-28 acetaminop l 17:00: hen 4000 Sushil 00 mg/day (4 gm/day). (Same as: Tylenol Extra Strength) Hydromorpho No Notes: Josh seamus ne 01-28 (Same as: l 17:00: Dilaudid) Cool 00 conc = 0.5 mg/ml Hydromorph one [employer]ELTER Dose: ;Delay: ;Basal: Acetaminoph No Notes: Max [facility]oria en 01-28 acetaminop l 17:00: hen 4000 Sushil 00 mg/day (4 gm/day). (Same as: Tylenol Extra Strength) Hydromorpho No 0.5 mg, Mem oria ne 01-28 Route: l 16:47: IVP, Cool 00 Q5Min, Dosing Weight 61.364, kg, PRN Pain Score 7-10, Start date: 01/28/17 11:47:00 CDT, Duration: 4 doses or times, Stop date: Limited # of times Naloxone No Notes: Memoria 01-28 (Same as: l 16:47: Narcan) Flumazenil No Notes: Memor ia 01-28 (Same as: l 16:47: Romazicon) Ondansetron No Notes: Josh seamus 01-28 (Same as: l 16:47: Zofran) MEDICATION WASTE Product Size: 4 mg Product Wasted: ___ mg Hydromorpho No 0.5 mg, Mem oria ne 01-28 Route: l 16:47: IVP, Cool 00 Q5Min, Dosing Weight 61.364, kg, PRN Pain Score 7-10, Start date: 01/28/17 11:47:00 CDT, Duration: 4 doses or times, Stop date: Limited # of times Naloxone No Notes: Memoria 3- (Same as: l 16:47: Narcan) Flumazenil No Notes: Memor ia 3- (Same as: l 16:47: Romazicon) Ondansetron No Notes: Josh seamus 3- (Same as: l 16:47: Zofran) Sushil 00 MEDICATION WASTE Product Size: 4 mg Product Wasted: ___ mg Hydromorpho No 0.5 mg, Mem oria ne 01-28 Route: l 16:47: IVP, Cool 00 Q5Min, Dosing Weight 61.364, kg, PRN Pain Score 7-10, Start date: 01/28/17 11:47:00 CDT, Duration: 4 doses or times, Stop date: Limited # of times Naloxone 2017- No Notes: Memoria 3- (Same as: l 16:47: Narcan) Flumazenil No Notes: Memor ia 3 (Same as: l 16:47: Romazicon) Ondansetron No Notes: Josh seamus 01-28 (Same as: l 16:47: Zofran) Cool 00 MEDICATION WASTE Product Size: 4 mg Product Wasted: ___ mg Hydromorpho No 0.5 mg, Mem oria ne 01-28 Route: l 16:47: IVP, Cool 00 Q5Min, Dosing Weight 61.364, kg, PRN Pain Score 7-10, Start date: 01/28/17 11:47:00 CDT, Duration: 4 doses or times, Stop date: Limited # of times Naloxone 2017-0 No Notes: Memoria 3- (Same as: l 16:47: Narcan) Flumazenil No Notes: Memor ia 3- (Same as: l 16:47: Romazicon) Ondansetron No Notes: Josh seamus 3-28 (Same as: l 16:47: Zofran) Sushil 00 MEDICATION WASTE Product Size: 4 mg Product Wasted: ___ mg Hydromorpho No 0.5 mg, Mem oria ne 01-28 Route: l 16:47: IVP, Cool 00 Q5Min, Dosing Weight 61.364, kg, PRN Pain Score 7-10, Start date: 01/28/17 11:47:00 CDT, Duration: 4 doses or times, Stop date: Limited # of times Naloxone 2017-0 No Notes: Memoria 3-28 (Same as: l 16:47: Narcan) Flumazenil No Notes: Memor ia 3- (Same as: l 16:47: Romazicon) Ondansetron No Notes: Josh seamus 3-28 (Same as: l 16:47: Zofran) Sushil 00 MEDICATION WASTE Product Size: 4 mg Product Wasted: ___ mg Hydromorpho No 0.5 mg, Mem oria ne 3 Route: l 16:47: IVP, Sushil 00 Q5Min, Dosing Weight 61.364, kg, PRN Pain Score 7-10, Start date: 01/28/17 11:47:00 CDT, Duration: 4 doses or times, Stop date: Limited # of times Naloxone 2016- No Notes: Memoria 3- (Same as: l 16:47: Narcan) Flumazenil No Notes: Memor ia 3- (Same as: l 16:47: Romazicon) Ondansetron No Notes: Josh seamus 3- (Same as: l 16:47: Zofran) Cool 00 MEDICATION WASTE Product Size: 4 mg Product Wasted: ___ mg Hydromorpho No 0.5 mg, Mem oria ne 01-28 Route: l 16:47: IVP, Sushil 00 Q5Min, Dosing Weight 61.364, kg, PRN Pain Score 7-10, Start date: 01/28/17 11:47:00 CDT, Duration: 4 doses or times, Stop date: Limited # of times Naloxone 2016-0 No Notes: [facility] 3- (Same as: l 16:47: Narcan) Hydromorpho 2016-0 No 0.5 mg, Mem oria ne 3-28 Route: l 16:47: IVP, Sushil 00 Q5Min, Dosing Weight 61.364, kg, PRN Pain Score 7-10, Start date: 01/28/17 11:47:00 CDT, Duration: 4 doses or times, Stop date: Limited # of times Flumazenil No Notes: Memor ia 01-28 (Same as: l 16:47: Romazicon) Naloxone 2016- No Notes: [facility]oria 01-28 (Same as: l 16:47: Narcan) Ondansetron No Notes: Josh seamus 01-28 (Same as: l 16:47: Zofran) MEDICATION WASTE Product Size: 4 mg Product Wasted: ___ mg Flumazenil No Notes: Memor ia 01-28 (Same as: l 16:47: Romazicon) Ondansetron No Notes: Josh seamus 01-28 (Same as: l 16:47: Zofran) MEDICATION WASTE Product Size: 4 mg Product Wasted: ___ mg ondansetron No Route: IV, Memoria (ANES) 01-28 Drug form: l 16:45: INJ, ONCE, Stop date: 01/28/17 11:45:00 CDT ondansetron 0 No Route: IV, Memoria (ANES) 01-28 Drug form: l 16:45: INJ, ONCE, Stop date: 01/28/17 11:45:00 CDT ondansetron 0 No Route: IV, Memoria (ANES) 01-28 Drug form: l 16:45: INJ, ONCE, Stop date: 01/28/17 11:45:00 CDT ondansetron 2016-0 No Route: IV, Memoria (ANES) 01-28 Drug form: l 16:45: INJ, ONCE, Stop date: 01/28/17 11:45:00 CDT ondansetron 2016-0 No Route: IV, Memoria (ANES) 3- Drug form: l 16:45: INJ, ONCE, Stop date: 01/28/17 11:45:00 CDT ondansetron 2016-0 No Route: IV, Memoria (ANES) 3 Drug form: l 16:45: INJ, ONCE, Stop date: 01/28/17 11:45:00 CDT ondansetron No Route: IV, Memoria (ANES) 3-28 Drug form: l 16:45: INJ, ONCE, Stop date: 01/28/17 11:45:00 CDT ondansetron No Route: IV, Memoria (ANES) 3-28 Drug form: l 16:45: INJ, ONCE, Stop date: 01/28/17 11:45:00 CDT Oxycodone No Notes: Memori a Hydrochlori 3-28 (Same as: l de 5 MG 16:44: Roxicodone Herm milind Oral Tablet ) Oxycodone No Notes: Memori a Hydrochlori 3-28 (Same as: l de 5 MG 16:44: Roxicodone Herm milind Oral Tablet ) Oxycodone No Notes: Memori a Hydrochlori 3-28 (Same as: l de 5 MG 16:44: Roxicodone Herm milind Oral Tablet ) Oxycodone No Notes: Memori a Hydrochlori 3-28 (Same as: l de 5 MG 16:44: Roxicodone Herm milind Oral Tablet ) Oxycodone No Notes: Memori a Hydrochlori 3-28 (Same as: l de 5 MG 16:44: Roxicodone Herm milind Oral Tablet ) Oxycodone No Notes: Memori a Hydrochlori 3-28 (Same as: l de 5 MG 16:44: Roxicodone Herm milind Oral Tablet ) Oxycodone No Notes: Memori a Hydrochlori 3-28 (Same as: l de 5 MG 16:44: Roxicodone Herm milind Oral Tablet ) Oxycodone No Notes: Memori a Hydrochlori 3-28 (Same as: l de 5 MG 16:44: Roxicodone Herm milind Oral Tablet ) Naloxone No Notes: Memoria 3-28 (Same as: l 16:37: Narcan) Methocarbam No Notes: Josh seamus ol -28 (Same l 16:37: as:Robaxin ) Naloxone No Notes: Memoria 3-28 (Same as: l 16:37: Narcan) Cool Methocarbam No Notes: Josh seamus ol 3-28 (Same l 16:37: as:Robaxin Sushil ) Naloxone No Notes: Memoria 3-28 (Same as: l 16:37: Narcan) Sushil 00 Methocarbam No Notes: Josh seamus ol 3-28 (Same l 16:37: as:Robaxin Cool ) Naloxone No Notes: Memoria 3-28 (Same as: l 16:37: Narcan) Cool 00 Methocarbam No Notes: Josh seamus ol 3-28 (Same l 16:37: as:Robaxin Cool ) Naloxone No Notes: Memoria 3-28 (Same as: l 16:37: Narcan) Cool 00 Methocarbam No Notes: Josh seamus ol 3-28 (Same l 16:37: as:Robaxin Cool ) Naloxone No Notes: Memoria 3-28 (Same as: l 16:37: Narcan) Cool 00 Methocarbam No Notes: Josh seamus ol 3-28 (Same l 16:37: as:Robaxin Cool 00 ) Naloxone No Notes: Memoria 3-28 (Same as: l 16:37: Narcan) Cool 00 Methocarbam No Notes: Josh seamus ol 3-28 (Same l 16:37: as:Robaxin Sushil ) Naloxone No Notes: Memoria 3-28 (Same as: l 16:37: Narcan) Cool 00 Methocarbam No Notes: Josh seamus ol 3-28 (Same l 16:37: as:Robaxin Cool ) Ondansetron No Notes: Josh seamsu 3-28 (Same as: l 16:31: Zofran) Sushil 00 Ondansetron No Notes: Josh seamus 3-28 (Same as: l 16:31: Zofran) Cool 00 Ondansetron No Notes: Josh seamus 3-28 (Same as: l 16:31: Zofran) Sushil 00 Ondansetron 2017-0 No Notes: Josh seamus 3-28 (Same as: l 16:31: Zofran) Ondansetron 2016-0 No Notes: Josh seamus 3-28 (Same as: l 16:31: Zofran) Ondansetron 2017-0 No Notes: Josh seamus 3-28 (Same as: l 16:31: Zofran) Ondansetron 2016-0 No Notes: Josh seamus 3-28 (Same as: l 16:31: Zofran) Ondansetron 2016-0 No Notes: Josh seamus 3-28 (Same as: l 16:31: Zofran) phenylephri 2017-0 No Route: IV, Memoria ne (ANES) 01-28 Drug form: l 16:06: INJ, ONCE, Stop date: 01/28/17 11:06:00 CDT phenylephri 2017-0 No Route: IV, Memoria ne (ANES) 01-28 Drug form: l 16:06: INJ, ONCE, Stop date: 01/28/17 11:06:00 CDT phenylephri 2017-0 No Route: IV, Memoria ne (ANES) 01-28 Drug form: l 16:06: INJ, ONCE, Stop date: 01/28/17 11:06:00 CDT phenylephri 2017-0 No Route: IV, Memoria ne (ANES) 01-28 Drug form: l 16:06: INJ, ONCE, Stop date: 01/28/17 11:06:00 CDT phenylephri 2017-0 No Route: IV, Memoria ne (ANES) - Drug form: l 16:06: INJ, ONCE, Sushil 00 Stop date: 01/28/17 11:06:00 CDT phenylephri 2017-0 No Route: IV, Memoria ne (ANES) - Drug form: l 16:06: INJ, ONCE, Stop date: 01/28/17 11:06:00 CDT phenylephri 2017-0 No Route: IV, Memoria ne (ANES) 01-28 Drug form: l 16:06: INJ, ONCE, Sushil 00 Stop date: 01/28/17 11:06:00 CDT phenylephri 2017-0 No Route: IV, Memoria ne (ANES) 01-28 Drug form: l 16:06: INJ, ONCE, Stop date: 01/28/17 11:06:00 CDT ketAMINE 2017-0 No Route: IV, Mem oria (ANES) 3 Drug form: l 15:46: INJ, ONCE, Stop date: 01/28/17 10:46:00 CDT ketAMINE 2017-0 No Route: IV, Mem oria (ANES) 01-28 Drug form: l 15:46: INJ, ONCE, Stop date: 01/28/17 10:46:00 CDT ketAMINE 2017-0 No Route: IV, Mem oria (ANES) 01-28 Drug form: l 15:46: INJ, ONCE, Stop date: 01/28/17 10:46:00 CDT ketAMINE 2017-0 No Route: IV, Mem oria (ANES) 01-28 Drug form: l 15:46: INJ, ONCE, Stop date: 01/28/17 10:46:00 CDT ketAMINE 2017-0 No Route: IV, Mem oria (ANES) 01-28 Drug form: l 15:46: INJ, ONCE, Stop date: 01/28/17 10:46:00 CDT ketAMINE 2017-0 No Route: IV, Mem oria (ANES) 01-28 Drug form: l 15:46: INJ, ONCE, Stop date: 01/28/17 10:46:00 CDT ketAMINE 2017-0 No Route: IV, Mem oria (ANES) 3- Drug form: l 15:46: INJ, ONCE, Stop date: 01/28/17 10:46:00 CDT ketAMINE 2017-0 No Route: IV, Mem oria (ANES) 3- Drug form: l 15:46: INJ, ONCE, Stop date: 01/28/17 10:46:00 CDT fentaNYL 2017-0 No Route: IV, Mem oria (ANES) 3- Drug form: l 15:31: INJ, ONCE, Stop date: 01/28/17 10:31:00 CDT dexamethaso 2016-0 No Route: IV, Memoria ne (ANES) 01-28 Drug form: l 15:31: INJ, ONCE, Stop date: 01/28/17 10:31:00 CDT propofol 2017-0 No Route: IV, Mem oria (ANES) 01-28 Drug form: l 15:31: INJ, ONCE, Stop date: 01/28/17 10:31:00 CDT lidocaine 2017-0 No Route: IV, Me moria (ANES) 01-28 Drug form: l 15:31: INJ, ONCE, Stop date: 01/28/17 10:31:00 CDT rocuronium 2017-0 No Route: IV, M emoria (ANES) 01-28 Drug form: l 15:31: INJ, ONCE, Stop date: 01/28/17 10:31:00 CDT fentaNYL 2017-0 No Route: IV, Mem oria (ANES) 01-28 Drug form: l 15:31: INJ, ONCE, Stop date: 01/28/17 10:31:00 CDT dexamethaso 2017-0 No Route: IV, Memoria ne (ANES) 01-28 Drug form: l 15:31: INJ, ONCE, Stop date: 01/28/17 10:31:00 CDT propofol 2017-0 No Route: IV, Mem oria (ANES) 01-28 Drug form: l 15:31: INJ, ONCE, Stop date: 01/28/17 10:31:00 CDT lidocaine 2017-0 No Route: IV, Me moria (ANES) 01-28 Drug form: l 15:31: INJ, ONCE, Stop date: 01/28/17 10:31:00 CDT rocuronium 2017-0 No Route: IV, M emoria (ANES) 01-28 Drug form: l 15:31: INJ, ONCE, Stop date: 01/28/17 10:31:00 CDT fentaNYL 2017-0 No Route: IV, Mem oria (ANES) 01-28 Drug form: l 15:31: INJ, ONCE, Stop date: 01/28/17 10:31:00 CDT dexamethaso 2017-0 No Route: IV, Memoria ne (ANES) 01-28 Drug form: l 15:31: INJ, ONCE, Stop date: 01/28/17 10:31:00 CDT propofol 2017-0 No Route: IV, Mem oria (ANES) 01-28 Drug form: l 15:31: INJ, ONCE, Stop date: 01/28/17 10:31:00 CDT lidocaine 2017-0 No Route: IV, Me moria (ANES) 01-28 Drug form: l 15:31: INJ, ONCE, Stop date: 01/28/17 10:31:00 CDT rocuronium 2017-0 No Route: IV, M emoria (ANES) 01-28 Drug form: l 15:31: INJ, ONCE, Stop date: 01/28/17 10:31:00 CDT fentaNYL 2017-0 No Route: IV, Mem oria (ANES) 01-28 Drug form: l 15:31: INJ, ONCE, Stop date: 01/28/17 10:31:00 CDT dexamethaso 2017-0 No Route: IV, Memoria ne (ANES) 01-28 Drug form: l 15:31: INJ, ONCE, Stop date: 01/28/17 10:31:00 CDT propofol 2017-0 No Route: IV, Mem oria (ANES) 01-28 Drug form: l 15:31: INJ, ONCE, Stop date: 01/28/17 10:31:00 CDT lidocaine 2017-0 No Route: IV, Me moria (ANES) 01-28 Drug form: l 15:31: INJ, ONCE, Stop date: 01/28/17 10:31:00 CDT rocuronium 2017-0 No Route: IV, M emoria (ANES) 01-28 Drug form: l 15:31: INJ, ONCE, Stop date: 01/28/17 10:31:00 CDT fentaNYL 2017-0 No Route: IV, Mem oria (ANES) 01-28 Drug form: l 15:31: INJ, ONCE, Stop date: 01/28/17 10:31:00 CDT dexamethaso 2016-0 No Route: IV, Memoria ne (ANES) 01-28 Drug form: l 15:31: INJ, ONCE, Stop date: 01/28/17 10:31:00 CDT propofol 2017-0 No Route: IV, Mem oria (ANES) 01-28 Drug form: l 15:31: INJ, ONCE, Stop date: 01/28/17 10:31:00 CDT lidocaine 2017-0 No Route: IV, Me moria (ANES) 01-28 Drug form: l 15:31: INJ, ONCE, Stop date: 01/28/17 10:31:00 CDT rocuronium 2017-0 No Route: IV, M emoria (ANES) 01-28 Drug form: l 15:31: INJ, ONCE, Stop date: 01/28/17 10:31:00 CDT fentaNYL 2017-0 No Route: IV, Mem oria (ANES) 01-28 Drug form: l 15:31: INJ, ONCE, Stop date: 01/28/17 10:31:00 CDT dexamethaso 2017-0 No Route: IV, Memoria ne (ANES) 01-28 Drug form: l 15:31: INJ, ONCE, Stop date: 01/28/17 10:31:00 CDT propofol 2017-0 No Route: IV, Mem oria (ANES) 01-28 Drug form: l 15:31: INJ, ONCE, Stop date: 01/28/17 10:31:00 CDT lidocaine 2017-0 No Route: IV, Me moria (ANES) 01-28 Drug form: l 15:31: INJ, ONCE, Stop date: 01/28/17 10:31:00 CDT rocuronium 2017-0 No Route: IV, M emoria (ANES) 01-28 Drug form: l 15:31: INJ, ONCE, Stop date: 01/28/17 10:31:00 CDT fentaNYL 2017-0 No Route: IV, Mem oria (ANES) 01-28 Drug form: l 15:31: INJ, ONCE, Stop date: 01/28/17 10:31:00 CDT dexamethaso 2017-0 No Route: IV, Memoria ne (ANES) 01-28 Drug form: l 15:31: INJ, ONCE, Stop date: 01/28/17 10:31:00 CDT propofol 2017-0 No Route: IV, Mem oria (ANES) 01-28 Drug form: l 15:31: INJ, ONCE, Stop date: 01/28/17 10:31:00 CDT fentaNYL 2017-0 No Route: IV, Mem oria (ANES) 01-28 Drug form: l 15:31: INJ, ONCE, Stop date: 01/28/17 10:31:00 CDT lidocaine 2017-0 No Route: IV, Me moria (ANES) 01-28 Drug form: l 15:31: INJ, ONCE, Stop date: 01/28/17 10:31:00 CDT dexamethaso 2017-0 No Route: IV, Memoria ne (ANES) 01-28 Drug form: l 15:31: INJ, ONCE, Stop date: 01/28/17 10:31:00 CDT rocuronium 2017-0 No Route: IV, M emoria (ANES) 01-28 Drug form: l 15:31: INJ, ONCE, Stop date: 01/28/17 10:31:00 CDT propofol 2017-0 No Route: IV, Mem oria (ANES) 01-28 Drug form: l 15:31: INJ, ONCE, Stop date: 01/28/17 10:31:00 CDT lidocaine 2017-0 No Route: IV, Me moria (ANES) 01-28 Drug form: l 15:31: INJ, ONCE, Stop date: 01/28/17 10:31:00 CDT rocuronium 2017-0 No Route: IV, M emoria (ANES) 01-28 Drug form: l 15:31: INJ, ONCE, Stop date: 01/28/17 10:31:00 CDT acetaminoph 2017-0 No Route: IV, Memoria en (ANES) 01-28 Drug form: l (ANES) 14:46: INJ, Start Agnes nn date: 01/28/17 9:46:00 CDT, Stop date: 01/28/17 10:46:00 CDT acetaminoph No Route: IV, Memoria en (ANES) 01-28 Drug form: l (ANES) 14:46: INJ, Start Agnes date: 01/28/17 9:46:00 CDT, Stop date: 01/28/17 10:46:00 CDT acetaminoph No Route: IV, Memoria en (ANES) 01-28 Drug form: l (ANES) 14:46: INJ, Start Agnes date: 01/28/17 9:46:00 CDT, Stop date: 01/28/17 10:46:00 CDT acetaminoph No Route: IV, Memoria en (ANES) 01-28 Drug form: l (ANES) 14:46: INJ, Start Agnes date: 01/28/17 9:46:00 CDT, Stop date: 01/28/17 10:46:00 CDT acetaminoph No Route: IV, Memoria en (ANES) 01-28 Drug form: l (ANES) 14:46: INJ, Start Agnes date: 01/28/17 9:46:00 CDT, Stop date: 01/28/17 10:46:00 CDT acetaminoph No Route: IV, Memoria en (ANES) 01-28 Drug form: l (ANES) 14:46: INJ, Start Agnes date: 01/28/17 9:46:00 CDT, Stop date: 01/28/17 10:46:00 CDT acetaminoph No Route: IV, Memoria en (ANES) 01-28 Drug form: l (ANES) 14:46: INJ, Start Agnes nn date: 01/28/17 9:46:00 CDT, Stop date: 01/28/17 10:46:00 CDT acetaminoph No Route: IV, Memoria en (ANES) 3 Drug form: l (ANES) 14:46: INJ, Start Agnes nn date: 01/28/17 9:46:00 CDT, Stop date: 01/28/17 10:46:00 CDT dexmedetomi 2017-0 No Route: IV, Memoria dine (ANES) 01-28 Drug form: l (ANES) 14:42: INJ, Start Agnes date: 01/28/17 9:42:00 CDT, Stop date: 01/28/17 10:42:00 CDT dexmedetomi 2017-0 No Route: IV, Memoria dine (ANES) 01-28 Drug form: l (ANES) 14:42: INJ, Start Agnes date: 01/28/17 9:42:00 CDT, Stop date: 01/28/17 10:42:00 CDT dexmedetomi 2017-0 No Route: IV, Memoria dine (ANES) 01-28 Drug form: l (ANES) 14:42: INJ, Start Agnes date: 01/28/17 9:42:00 CDT, Stop date: 01/28/17 10:42:00 CDT dexmedetomi 2017-0 No Route: IV, Memoria dine (ANES) 01-28 Drug form: l (ANES) 14:42: INJ, Start Agnes date: 01/28/17 9:42:00 CDT, Stop date: 01/28/17 10:42:00 CDT dexmedetomi 2017-0 No Route: IV, Memoria dine (ANES) 01-28 Drug form: l (ANES) 14:42: INJ, Start Agnes date: 01/28/17 9:42:00 CDT, Stop date: 01/28/17 10:42:00 CDT dexmedetomi 2017-0 No Route: IV, Memoria dine (ANES) 3 Drug form: l (ANES) 14:42: INJ, Start Agnes date: 01/28/17 9:42:00 CDT, Stop date: 01/28/17 10:42:00 CDT dexmedetomi 2017-0 No Route: IV, Memoria dine (ANES) 01-28 Drug form: l (ANES) 14:42: INJ, Start Agnes date: 01/28/17 9:42:00 CDT, Stop date: 01/28/17 10:42:00 CDT dexmedetomi 2017-0 No Route: IV, Memoria dine (ANES) 3-28 Drug form: l (ANES) 14:42: INJ, Start Agnes nn 00 date: 01/28/17 9:42:00 CDT, Stop date: 01/28/17 10:42:00 CDT sodium 2017-0 No Route: IV, Memor ia chloride 3-28 Drug form: l 0.9% 100 ml 14:32: INJ, Start Cool INJ (ANES) 00 date: + ceFAZolin 01/28/17 (ANES) 9:32:00 (ANES) CDT, Stop date: 01/28/17 10:32:00 CDT sodium 2017-0 No Route: IV, Memor ia chloride 3-28 Drug form: l 0.9% 100 ml 14:32: INJ, Start Cool INJ (ANES) 00 date: + ceFAZolin 01/28/17 (ANES) 9:32:00 (ANES) CDT, Stop date: 01/28/17 10:32:00 CDT sodium 2016-0 No Route: IV, Memor ia chloride 3-28 Drug form: l 0.9% 100 ml 14:32: INJ, Start Sushil INJ (ANES) 00 date: + ceFAZolin 01/28/17 (ANES) 9:32:00 (ANES) CDT, Stop date: 01/28/17 10:32:00 CDT sodium 2017-0 No Route: IV, Memor ia chloride 3-28 Drug form: l 0.9% 100 ml 14:32: INJ, Start Cool INJ (ANES) 00 date: + ceFAZolin 01/28/17 (ANES) 9:32:00 (ANES) CDT, Stop date: 01/28/17 10:32:00 CDT sodium 2017-0 No Route: IV, Memor ia chloride 3-28 Drug form: l 0.9% 100 ml 14:32: INJ, Start Sushil INJ (ANES) 00 date: + ceFAZolin 01/28/17 (ANES) 9:32:00 (ANES) CDT, Stop date: 01/28/17 10:32:00 CDT sodium 2016-0 No Route: IV, Memor ia chloride 3- Drug form: l 0.9% 100 ml 14:32: INJ, Start Cool INJ (ANES) 00 date: + ceFAZolin 01/28/17 (ANES) 9:32:00 (ANES) CDT, Stop date: 01/28/17 10:32:00 CDT sodium 2016- No Route: IV, Memor ia chloride 3- Drug form: l 0.9% 100 ml 14:32: INJ, Start Cool INJ (ANES) 00 date: + ceFAZolin 01/28/17 (ANES) 9:32:00 (ANES) CDT, Stop date: 01/28/17 10:32:00 CDT sodium No Route: IV, Memor ia chloride 3- Drug form: l 0.9% 100 ml 14:32: INJ, Start Sushil INJ (ANES) date: + ceFAZolin 01/28/17 (ANES) 9:32:00 (ANES) CDT, Stop date: 01/28/17 10:32:00 CDT LR 1000 mL No Route: IV, M emoria INJ (ANES) 3- Total l 14:21: Volume: Cool 00 1,000, Start date: 01/28/17 9:21:00 CDT, Stop date: 01/28/17 10:21:00 CDT LR 1000 mL No Route: IV, M emoria INJ (ANES) 3- Total l 14:21: Volume: Sushil 00 1,000, Start date: 01/28/17 9:21:00 CDT, Stop date: 01/28/17 10:21:00 CDT LR 1000 mL No Route: IV, M emoria INJ (ANES) 3- Total l 14:21: Volume: Sushil 00 1,000, Start date: 01/28/17 9:21:00 CDT, Stop date: 01/28/17 10:21:00 CDT LR 1000 mL No Route: IV, M emoria INJ (ANES) 3- Total l 14:21: Volume: Cool 00 1,000, Start date: 01/28/17 9:21:00 CDT, Stop date: 01/28/17 10:21:00 CDT LR 1000 mL No Route: IV, M emoria INJ (ANES) 3- Total l 14:21: Volume: Cool 00 1,000, Start date: 01/28/17 9:21:00 CDT, Stop date: 01/28/17 10:21:00 CDT LR 1000 mL No Route: IV, M emoria INJ (ANES) 3- Total l 14:21: Volume: Cool 00 1,000, Start date: 01/28/17 9:21:00 CDT, Stop date: 01/28/17 10:21:00 CDT LR 1000 mL No Route: IV, M emoria INJ (ANES) 3- Total l 14:21: Volume: Sushil 00 1,000, Start date: 01/28/17 9:21:00 CDT, Stop date: 01/28/17 10:21:00 CDT LR 1000 mL No Route: IV, M emoria INJ (ANES) 3- Total l 14:21: Volume: Sushil 00 1,000, Start date: 01/28/17 9:21:00 CDT, Stop date: 01/28/17 10:21:00 CDT ceFAZolin 2016- No Notes: Memori a 3 Same as: l 08:00: Ancef Sushil ceFAZolin 2016-0 No Notes: Memori a 3 Same as: l 08:00: Ancef Cool ceFAZolin 2017-0 No Notes: Memori a 3 Same as: l 08:00: Ancef Cool 00 ceFAZolin 2017-0 No Notes: Memori a 3 Same as: l 08:00: Ancef Sushil 00 ceFAZolin 2017-0 No Notes: Memori a 3 Same as: l 08:00: Ancef Cool 00 ceFAZolin 2016-0 No Notes: Memori a 3 Same as: l 08:00: Ancef Sushil ceFAZolin 2017-0 No Notes: Memori a 3 Same as: l 08:00: ceFAZolin No Notes: Memori a 01-28 Same as: l 08:00: Melatonin 5 Yes 15 mg = 3 M emoria MG 3-27 tab, SL, l Sublingual 17:02: Bedtime, 0 H ermann Tablet 00 Refill(s) Melatonin 5 Yes 15 mg = 3 M emoria MG 3-27 tab, SL, l Sublingual 17:02: Bedtime, 0 H ermann Tablet 00 Refill(s) Melatonin 5 Yes 15 mg = 3 M emoria MG 3-27 tab, SL, l Sublingual 17:02: Bedtime, 0 H ermann Tablet 00 Refill(s) Melatonin 5 Yes 15 mg = 3 M emoria MG 3-27 tab, SL, l Sublingual 17:02: Bedtime, 0 H ermann Tablet 00 Refill(s) Melatonin 5 Yes 15 mg = 3 M emoria MG 3-27 tab, SL, l Sublingual 17:02: Bedtime, 0 H ermann Tablet 00 Refill(s) Melatonin 5 Yes 15 mg = 3 M emoria MG 3-27 tab, SL, l Sublingual 17:02: Bedtime, 0 H ermann Tablet 00 Refill(s) Melatonin 5 Yes 15 mg = 3 M emoria MG 3-27 tab, SL, l Sublingual 17:02: Bedtime, 0 H ermann Tablet 00 Refill(s) Melatonin 5 Yes 15 mg = 3 M emoria MG 3-27 tab, SL, l Sublingual 17:02: Bedtime, 0 H ermann Tablet 00 Refill(s) lisinopril Yes 40 mg = 1 Me moria 40 mg oral 3-27 tab, PO, l tablet 17:01: Daily, 0 Cool 00 Refill(s) lisinopril Yes 40 mg = 1 Me moria 40 mg oral 3-27 tab, PO, l tablet 17:01: Daily, 0 Cool 00 Refill(s) lisinopril Yes 40 mg = 1 Me moria 40 mg oral 3-27 tab, PO, l tablet 17:01: Daily, 0 Sushil 00 Refill(s) lisinopril Yes 40 mg = 1 Me moria 40 mg oral 3-27 tab, PO, l tablet 17:01: Daily, 0 Sushil 00 Refill(s) lisinopril Yes 40 mg = 1 Me moria 40 mg oral 3-27 tab, PO, l tablet 17:01: Daily, 0 Cool 00 Refill(s) lisinopril Yes 40 mg = 1 Me moria 40 mg oral 3-27 tab, PO, l tablet 17:01: Daily, 0 Cool 00 Refill(s) lisinopril Yes 40 mg = 1 Me moria 40 mg oral 3-27 tab, PO, l tablet 17:01: Daily, 0 Sushil 00 Refill(s) lisinopril Yes 40 mg = 1 Me moria 40 mg oral 3-27 tab, PO, l tablet 17:01: Daily, 0 Sushil 00 Refill(s) Alprazolam Yes 1 mg = 1 Mem oria 1 MG Oral 3-27 tab, PO, l Tablet 17:00: BID, 0 Sushil [Xanax] 00 Refill(s) Multiple Yes 1 tab, PO, Mem oria Vitamins 3-27 Daily, 0 l oral tablet 17:00: Refill(s) H naproxen Yes 500 mg = 1 Mem oria 500 mg oral 3-27 tab, PO, l tablet 17:00: BID, # 60 Mio n 00 tab, 0 Refill(s) Alprazolam Yes 1 mg = 1 Mem oria 1 MG Oral 3-27 tab, PO, l Tablet 17:00: BID, 0 Cool [Xanax] 00 Refill(s) Multiple Yes 1 tab, PO, Mem oria Vitamins 3-27 Daily, 0 l oral tablet 17:00: Refill(s) H naproxen Yes 500 mg = 1 Mem oria 500 mg oral 3-27 tab, PO, l tablet 17:00: BID, # 60 Mio n 00 tab, 0 Refill(s) Alprazolam Yes 1 mg = 1 Mem oria 1 MG Oral 3-27 tab, PO, l Tablet 17:00: BID, 0 Sushil [Xanax] 00 Refill(s) Multiple Yes 1 tab, PO, Mem oria Vitamins 3-27 Daily, 0 l oral tablet 17:00: Refill(s) H naproxen Yes 500 mg = 1 Mem oria 500 mg oral 3-27 tab, PO, l tablet 17:00: BID, # 60 Mio n 00 tab, 0 Refill(s) Alprazolam Yes 1 mg = 1 Mem oria 1 MG Oral 3-27 tab, PO, l Tablet 17:00: BID, 0 Sushil [Xanax] 00 Refill(s) Multiple Yes 1 tab, PO, Mem oria Vitamins 3-27 Daily, 0 l oral tablet 17:00: Refill(s) H naproxen Yes 500 mg = 1 Mem oria 500 mg oral 3-27 tab, PO, l tablet 17:00: BID, # 60 Mio n 00 tab, 0 Refill(s) Alprazolam Yes 1 mg = 1 Mem oria 1 MG Oral 3-27 tab, PO, l Tablet 17:00: BID, 0 Cool [Xanax] 00 Refill(s) Multiple Yes 1 tab, PO, Mem oria Vitamins 3-27 Daily, 0 l oral tablet 17:00: Refill(s) H naproxen Yes 500 mg = 1 Mem oria 500 mg oral 3-27 tab, PO, l tablet 17:00: BID, # 60 Mio n 00 tab, 0 Refill(s) Alprazolam Yes 1 mg = 1 Mem oria 1 MG Oral 3-27 tab, PO, l Tablet 17:00: BID, 0 Sushil [Xanax] 00 Refill(s) Multiple Yes 1 tab, PO, Mem oria Vitamins 3-27 Daily, 0 l oral tablet 17:00: Refill(s) H naproxen Yes 500 mg = 1 Mem oria 500 mg oral 3-27 tab, PO, l tablet 17:00: BID, # 60 Mio n 00 tab, 0 Refill(s) Alprazolam Yes 1 mg = 1 Mem oria 1 MG Oral 3-27 tab, PO, l Tablet 17:00: BID, 0 Sushil [Xanax] 00 Refill(s) Multiple 2017 Yes 1 tab, PO, Mem oria Vitamins 3-27 Daily, 0 l oral tablet 17:00: Refill(s) H Alprazolam Yes 1 mg = 1 Mem oria 1 MG Oral 3-27 tab, PO, l Tablet 17:00: BID, 0 Cool [Xanax] 00 Refill(s) naproxen Yes 500 mg = 1 Mem oria 500 mg oral 3-27 tab, PO, l tablet 17:00: BID, # 60 Mio n 00 tab, 0 Refill(s) Multiple Yes 1 tab, PO, Mem oria Vitamins 3-27 Daily, 0 l oral tablet 17:00: Refill(s) H naproxen Yes 500 mg = 1 Mem oria 500 mg oral 3-27 tab, PO, l tablet 17:00: BID, # 60 Mio n 00 tab, 0 Refill(s) fentaNYL Yes 1 patch, Memor ia 100 mcg/hr 3-27 TOP, Q72H, l transdermal 16:58: # 10 Mio n film, 00 patch, 0 extended Refill(s) release fentaNYL Yes 1 patch, Memor ia 100 mcg/hr 3-27 TOP, Q72H, l transdermal 16:58: # 10 Mio n film, 00 patch, 0 extended Refill(s) release fentaNYL 2017 Yes 1 patch, Memor ia 100 mcg/hr 3-27 TOP, Q72H, l transdermal 16:58: # 10 Mio n film, 00 patch, 0 extended Refill(s) release fentaNYL 2017- Yes 1 patch, Memor ia 100 mcg/hr 3-27 TOP, Q72H, l transdermal 16:58: # 10 Mio n film, 00 patch, 0 extended Refill(s) release fentaNYL 2017- Yes 1 patch, Memor ia 100 mcg/hr 3-27 TOP, Q72H, l transdermal 16:58: # 10 Mio n film, 00 patch, 0 extended Refill(s) release fentaNYL 2017-0 Yes 1 patch, Memor ia 100 mcg/hr 3-27 TOP, Q72H, l transdermal 16:58: # 10 Mio n film, 00 patch, 0 extended Refill(s) release fentaNYL Yes 1 patch, Memor ia 100 mcg/hr 3-27 TOP, Q72H, l transdermal 16:58: # 10 Mio n film, 00 patch, 0 extended Refill(s) release fentaNYL Yes 1 patch, Memor ia 100 mcg/hr 3-27 TOP, Q72H, l transdermal 16:58: # 10 Mio n film, 00 patch, 0 extended Refill(s) release gabapentin Yes 800 mg = 1 M emoria 800 MG Oral 3-27 tab, PO, l Tablet 16:57: BID, 0 Sushil [Neurontin] 00 Refill(s) Acetaminoph Yes 1 tab, PO, Memoria en 300 MG / 3-27 Q6H, 0 l Hydrocodone 16:57: Refill(s) H ermann Bitartrate 00 10 MG Oral Tablet [Vicodin 10/300] gabapentin Yes 800 mg = 1 M emoria 800 MG Oral 3-27 tab, PO, l Tablet 16:57: BID, 0 Sushil [Neurontin] 00 Refill(s) Acetaminoph Yes 1 tab, PO, Memoria en 300 MG / 3-27 Q6H, 0 l Hydrocodone 16:57: Refill(s) H ermann Bitartrate 00 10 MG Oral Tablet [Vicodin 10/300] gabapentin Yes 800 mg = 1 M emoria 800 MG Oral 3-27 tab, PO, l Tablet 16:57: BID, 0 Sushil [Neurontin] 00 Refill(s) Acetaminoph Yes 1 tab, PO, Memoria en 300 MG / 3-27 Q6H, 0 l Hydrocodone 16:57: Refill(s) H ermann Bitartrate 00 10 MG Oral Tablet [Vicodin 10/300] gabapentin Yes 800 mg = 1 M emoria 800 MG Oral 3-27 tab, PO, l Tablet 16:57: BID, 0 Sushil [Neurontin] 00 Refill(s) Acetaminoph Yes 1 tab, PO, Memoria en 300 MG / 3-27 Q6H, 0 l Hydrocodone 16:57: Refill(s) H ermann Bitartrate 00 10 MG Oral Tablet [Vicodin 10/300] gabapentin Yes 800 mg = 1 M emoria 800 MG Oral 3-27 tab, PO, l Tablet 16:57: BID, 0 Sushil [Neurontin] 00 Refill(s) Acetaminoph Yes 1 tab, PO, Memoria en 300 MG / 3-27 Q6H, 0 l Hydrocodone 16:57: Refill(s) H ermann Bitartrate 00 10 MG Oral Tablet [Vicodin 10/300] gabapentin Yes 800 mg = 1 M emoria 800 MG Oral 3-27 tab, PO, l Tablet 16:57: BID, 0 Sushil [Neurontin] 00 Refill(s) Acetaminoph Yes 1 tab, PO, Memoria en 300 MG / 3-27 Q6H, 0 l Hydrocodone 16:57: Refill(s) H ermann Bitartrate 00 10 MG Oral Tablet [Vicodin 10/300] gabapentin Yes 800 mg = 1 M emoria 800 MG Oral 3-27 tab, PO, l Tablet 16:57: BID, 0 Sushil [Neurontin] 00 Refill(s) Acetaminoph Yes 1 tab, PO, Memoria en 300 MG / 3-27 Q6H, 0 l Hydrocodone 16:57: Refill(s) H ermann Bitartrate 00 10 MG Oral Tablet [Vicodin 10/300] gabapentin Yes 800 mg = 1 M emoria 800 MG Oral 3-27 tab, PO, l Tablet 16:57: BID, 0 Cool [Neurontin] 00 Refill(s) Acetaminoph Yes 1 tab, PO, Memoria en 300 MG / 3-27 Q6H, 0 l Hydrocodone 16:57: Refill(s) H ermann Bitartrate 00 10 MG Oral Tablet [Vicodin 10/300] Immunizations Ordered Filled Immunization Date Status Comments Sour e Immunization Name Name TD, NOS 2021-06-28 Completed [facility] 00:00:[address] [facility] TD, NOS 2021-06-28 Completed [facility] 00:00:00 [facility] TD, NOS 2021-06-28 [facility]pleted [facility] Td 2021-06-28 Completed [facility] 00:[facility]00 [facility] Td 2021-06-28 Completed [facility] 00[facility]00 [facility] Td 2021-06-28 Completed [facility] 00:[facility]00 [facility] Td 2021-06-28 Completed [facility] 00:[facility]:00 [facility] Td 2021-06-28 Completed [facility] 00:[facility]:00 [facility] TD, NOS 2021-06-28 Completed [facility] 00:[facility]:00 [facility] TD, NOS 2014-04-14 Completed [facility] 00:[facility]:00 [facility] TD, NOS 2014-04-14 Completed [facility] 00:[facility]:00 [facility] TD, NOS 2014-04-14 Completed [facility] 00:00:00 [facility] Td 2014-04-14 Completed [facility] 00:00:00 [facility] Td 2014-04-14 Completed [facility] 00:[facility]:00 [facility] Td 2014-04-14 Completed [facility] 00:[facility]:00 [facility] Td 2014-04-14 Completed [facility] 00[facility]00:00 [facility] Td 2014-04-14 Completed [facility] 00:[facility]:00 [facility] TD, NOS 2014-04-14 Completed [facility] 00:[facility] [facility] Vital Signs Vital Name Observation Time Observation Value Comments Source Weight Dosing 2020-06-09 09:19:55 Height/Length 2020-06-09 09:19:55 Measured Systolic blood 2023-06-17 21:08:00 117 mm[Hg] Univer sity of pressure [facility] Diastolic blood 2023-06-17 21:08:00 65 mm[Hg] Unive rsity of pressure [facility] Heart rate 2023-06-17 21:08:00 87 /min [facility] Body temperature 2023-06-17 21:08:00 36.33 [facility] 2023-06-17 21:08:00 16 /[facility] O[facility] in 2023-06-17 21:08:00 98 /min [facility] Arterial blood by [facility] Pulse oximetry Branch Body weight 2023-06-17 09:14:00 54.477 kg [facility] BMI 2023-06-17 09:14:00 17.23 kg/m2 [facility] Body height 2023-06-10 00:11:00 177.8 cm [facility] Systolic blood 2022-12-24 03:48:00 162 mm[Hg] Univer sity of pressure [facility] Diastolic blood 2022-12-24 03:48:00 93 mm[Hg] Unive rsity of pressure [facility] Heart rate 2022-12-24 03:48:00 95 /min [facility] Respiratory rate 2022-12-24 03:48:00 25 /min [facility] Oxygen saturation in 2022-12-24 03:48:00 99 /min [facility] Arterial blood by [employer] Pulse oximetry [facility] Body temperature 2022-12-23 23:56:00 37.28 [facility] Body height 2022-12-23 23:56:00 180.3 cm [facility] Body weight 2022-12-23 23:56:00 61.689 kg [facility] BMI 2022-12-23 23:56:00 18.97 kg/m2 [facility] Systolic blood 2021-07-16 19:30:00 117 mm[Hg] Univer sity of pressure [facility] Diastolic blood 2021-07-16 19:30:00 71 mm[Hg] Unive rsity of pressure [facility] Heart rate 2021-07-16 19:30:00 83 /min [facility] Body temperature 2021-07-16 19:30:00 36.94 Radha [facility] Respiratory rate 2021-07-16 19:30:00 14 /min [facility] Body weight 2021-07-16 19:30:00 66.497 kg [facility] BMI 2021-07-16 19:30:00 20.45 kg/m2 [facility] Oxygen saturation in 2021-07-16 19:30:00 96 /min [facility] Arterial blood by [employer] Pulse oximetry [facility] Height/Length 2021-11-20 11:58:08 170 cm Measured Weight Dosing 2021-11-20 11:58:08 55.5 kg Height/Length 2021-11-20 11:52:58 170 cm Measured Weight Dosing 2021-11-20 11:52:58 55.5 kg Height/Length 2021-11-20 11:49:30 170 cm Measured Weight Dosing 2021-11-20 11:49:30 55.5 kg Height/Length 2021-11-20 11:48:50 170 cm Measured Weight Dosing 2021-11-20 11:48:50 55.5 kg Height/Length 2021-11-20 11:47:32 170 cm Measured Weight Dosing 2021-11-20 11:47:32 55.5 kg Height/Length 2021-11-20 11:47:25 170 cm Measured Weight Dosing 2021-11-20 11:47:25 55.5 kg Height/Length 2021-11-20 11:45:28 170 cm Measured Weight Dosing 2021-11-20 11:45:28 55.5 kg Height/Length 2021-11-20 11:45:14 170 cm Measured Weight Dosing 2021-11-20 11:45:14 55.5 kg Systolic (mm Hg) 2020-05-27 02:08:00 Josh rial Sushil Diastolic (mm Hg) 2020-05-27 02:08:00 Mem orial Cool Respitory Rate 2020-05-27 02:08:00 Memori al Sushil Temperature Oral (F) 2020-05-27 02:08:00 98 F [facility] Systolic (mm Hg) 2020-05-26 23:35:00 Josh rial Sushil Diastolic (mm Hg) 2020-05-26 23:35:00 Mem orial Sushil Systolic (mm Hg) 2020-05-26 22:32:00 Josh rial Sushil Diastolic (mm Hg) 2020-05-26 22:32:00 Mem orial Cool Respitory Rate 2020-05-26 21:45:00 Memori al Cool Respitory Rate 2020-05-26 21:30:00 Memori al Sushil Height 2020-05-26 20:53:00 157.48 cm [facility] BMI Calculated 2020-05-26 20:53:00 Memori al Sushil Weight 2020-05-26 20:53:00 [facility] Heart Rate 2020-05-26 20:53:00 [facility] Temperature Oral (F) 2020-05-26 20:53:00 98.3 F [facility] Systolic (mm Hg) 2017-11-10 20:16:00 Josh rial Sushil Diastolic (mm Hg) 2017-11-10 20:16:00 Mem orial Sushil Respitory Rate 2017-11-10 20:16:00 Memori al Cool Heart Rate 2017-11-10 20:16:00 [facility] Weight 2017-11-10 18:53:00 [facility] BMI Calculated 2017-11-10 18:53:00 Memori al Sushil Height 2017-11-10 18:53:00 177.8 cm [facility] Systolic (mm Hg) 2017-10-14 07:42:00 Josh rial Cool Diastolic (mm Hg) 2017-10-14 07:42:00 Mem orial Sushil Heart Rate 2017-10-14 07:42:00 [facility] Respitory Rate 2017-10-14 07:42:00 Memori al Cool Systolic (mm Hg) 2017-10-14 05:48:00 Johs rial Sushil Diastolic (mm Hg) 2017-10-14 05:48:00 Mem orial Cool Respitory Rate 2017-10-14 05:48:00 Memori al Cool Heart Rate 2017-10-14 05:48:00 [facility] Temperature Oral (F) 2017-10-14 05:48:00 98.1 F [facility] Temperature Oral (F) 2017-10-14 03:06:00 97.9 F [facility] Heart Rate 2017-10-14 03:06:00 [facility] Respitory Rate 2017-10-14 03:06:00 Memori al Sushil Systolic (mm Hg) 2017-10-14 03:06:00 Josh rial Cool Diastolic (mm Hg) 2017-10-14 03:06:00 Mem orial Sushil Weight 2017-10-14 03:06:00 [facility] Respitory Rate 2017-09-07 08:00:00 Memori al Sushil Systolic (mm Hg) 2017-09-07 08:00:00 Josh rial Sushil Diastolic (mm Hg) 2017-09-07 08:00:00 Mem orial Sushil Respitory Rate 2017-09-07 06:45:00 Memori al Sushil Systolic (mm Hg) 2017-09-07 06:45:00 Josh rial Cool Diastolic (mm Hg) 2017-09-07 06:45:00 Mem orial Cool Respitory Rate 2017-09-07 06:38:00 Memori al Cool Systolic (mm Hg) 2017-09-07 06:38:00 Josh rial Cool Diastolic (mm Hg) 2017-09-07 06:38:00 Mem orial Sushil Temperature Oral (F) 2017-09-07 02:52:00 98.8 F [facility] Temperature Oral (F) 2017-09-07 00:51:00 98.8 F [facility] Weight 2017-09-07 00:29:00 [facility] Height 2017-09-07 00:29:00 177.8 cm [facility] Temperature Oral (F) 2017-09-07 00:29:00 98.9 F [facility] BMI Calculated 2017-09-07 00:29:00 Memori al Cool Heart Rate 2017-09-07 00:29:00 [facility] Systolic (mm Hg) 2017-01-31 16:29:00 Josh rial Sushil Diastolic (mm Hg) 2017-01-31 16:29:00 Mem orial Sushil Respitory Rate 2017-01-31 16:29:00 Memori al Sushil Heart Rate 2017-01-31 16:29:00 [facility] Temperature Oral (F) 2017-01-31 16:29:00 99.1 F [facility] Heart Rate 2017-01-31 12:44:00 [facility] Respitory Rate 2017-01-31 12:44:00 Memori al Cool Temperature Oral (F) 2017-01-31 12:44:00 99.0 F [facility] Systolic (mm Hg) 2017-01-31 12:44:00 Josh rial Sushil Diastolic (mm Hg) 2017-01-31 12:44:00 Mem orial Sushil Temperature Oral (F) 2017-01-31 09:53:00 98.7 F [facility] Heart Rate 2017-01-31 09:53:00 [facility] Respitory Rate 2017-01-31 09:53:00 Memori al Cool Systolic (mm Hg) 2017-01-31 09:53:00 Josh Ling Diastolic (mm Hg) 2017-01-31 09:53:00 Mem orial Cool Height 2017-01-28 22:48:00 177.8 cm [facility] Weight 2017-01-28 22:48:00 [facility] Cool BMI Calculated 2017-01-28 22:48:00 Memori al Sushil Weight 2017-01-28 12:36:00 [facility] BMI Calculated 2017-01-28 12:36:00 Memori al Sushil Height 2017-01-28 12:36:00 179.07 cm [facility] Weight 2017-01-27 17:04:00 [facility] Height 2017-01-27 17:04:00 177.8 cm [facility] BMI Calculated 2017-01-27 17:04:00 Airamori al Sushil Procedures Procedure Date / Time Performing Clinician Source Performed BASIC METABOLIC PANEL 2023-06-17 20:31:00 Jimenez Goldman [facility] (NA, K, CL, CO2, GLUCOSE, Medica l Branch BUN, CREATININE, CA) COVID-19 (ID NOW RAPID 2023-06-17 16:37:00 Jimenez Goldman [facility] TESTING) Medical [place] OSMOLALITY URINE 2023-06-17 06:19:[facility], URINE RANDOM 2023-06-17 06:19:00 Aissatou [facility] SODIUM, URINE RANDOM 2023-06-17 06:19:00 Tawny Reyez [facility] URIC ACID 2023-06-17 06:18:00 Manan [facility] BASIC METABOLIC PANEL 2023-06-17 06:18:00 Aissatou [facility] (NA, K, CL, CO2, GLUCOSE, Medica l Branch BUN, CREATININE, CA) N-TERMINAL PRO-BNP 2023-06-17 06:18:00 Richie [facility] TROPONIN I 2023-06-16 09:42:00 Aissatou [facility] BASIC METABOLIC PANEL 2023-06-16 09:42:00 [facility] (NA, K, CL, CO2, GLUCOSE, Medica l Branch BUN, CREATININE, CA) TROPONIN I 2023-06-15 10:04:00 Ovhellen [facility] BASIC METABOLIC PANEL 2023-06-15 10:04:00 [facility] (NA, K, CL, CO2, GLUCOSE, Medica l Branch BUN, CREATININE, CA) MAGNESIUM 2023-06-14 10:07:00 Ovhellen [facility] TROPONIN I 2023-06-14 10:07:00 Ovhellen, [facility] BASIC METABOLIC PANEL 2023-06-14 10:07:00 [facility] (NA, K, CL, CO2, GLUCOSE, Medica l Branch BUN, CREATININE, CA) MAGNESIUM 2023-06-12 08:56:00 Ovhellen [facility] TROPONIN I 2023-06-12 08:56:00 Ovhellen [facility] BASIC METABOLIC PANEL 2023-06-12 08:56:00 [facility] (NA, K, CL, CO2, GLUCOSE, Medica l Branch BUN, CREATININE, CA) LIPID PANEL (07431)(TOTAL 2023-06-12 08:56:00 Aissatou [facility] CHOLESTEROL, Medical Branch TRIGLYCERIDES, HDL) GLYCOSYLATED HEMOGLOBIN 2023-06-12 08:56:00 Aissatou [facility] (A1C) Medical Branch TROPONIN I 2023-06-11 17:33:00 Aissatou [facility] AMMONIA, PLASMA 2023-06-11 09:20:00 Aissatou [facility] VITAMIN B12, LEVEL 2023-06-11 09:20:00 Aissatou [facility] [place] TROPONIN I 2023-06-11 09:20:00 Aissatou [facility] THYROID STIMULATING 2023-06-11 09:20:00 Aissatou [facility] HORMONE Medical Branch BASIC METABOLIC PANEL 2023-06-11 09:20:00 [facility] (NA, K, CL, CO2, GLUCOSE, Medica l Branch BUN, CREATININE, CA) CBC WITH DIFF 2023-06-11 09:20:00 Min [facility] TROPONIN I 2023-06-11 05:14:00 Aissatou [facility] TROPONIN I 2023-06-10 22:54:00 Aissatou [facility] TRANSTHORACIC ECHO (TTE) 2023-06-10 19:57:00 Min [facility] COMPLETE W/ CONTRAST Medical [facility] MAGNESIUM 2023-06-10 17:10:00 Aissatou [facility] TROPONIN I 2023-06-10 17:10:00 Aissatou [facility] BASIC METABOLIC PANEL 2023-06-10 17:10:00 Aissatou [facility] (NA, K, CL, CO2, GLUCOSE, Medica l Branch BUN, CREATININE, CA) CBC WITH DIFF 2023-06-10 17:10:00 Aissatou [facility] TROPONIN I 2023-06-10 13:21:00 [facility] (IMMUNOASSAY) 2023-06-10 03:37:00 Jonel Richard [facility] DRUG [facility] SCREEN URINALYSIS 2023-06-10 03:37:00 Jonel Richard [facility] CT HEAD WO CONTRAST 2023-06-10 01:42:48 Jonel Richard [facility] XR CHEST 1 VW 2023-06-10 01:34:01 Jonel Richard [facility] LIPID PANEL (35354)(TOTAL 2023-06-10 01:25:00 Shane Lester [facility] CHOLESTEROL, Medical Branch TRIGLYCERIDES, HDL) SERUM DRUG (IMMUNOASSAY) 2023-06-10 01:25:[address] [facility] SCREEN HB ECG ROUTINE & RHYTHM 2023-06-10 01:23:20 Jonel Richard [facility] STRIP Medical Branch LIPASE 2023-06-10 01:15:00 Jonel Richard [facility] TROPONIN I 2023-06-10 01:15:00 Jonel Richard [facility] COMP. METABOLIC PANEL 2023-06-10 01:15:00 Jonel Richard [facility] ([id number]) Medical Branch ETHANOL 2023-06-10 01:15:00 Jonel Richard [facility] CBC WITH DIFF 2023-06-10 01:15:00 Jonel Richard [facility] COVID-19 (ID NOW RAPID 2023-06-10 01:15:00 Jonel Richard [facility] TESTING) Medical [place] LAB ONLY COVID 2023-06-10 01:15:00 Jonel Richard [facility] INTERPRETATION [facility] NOTICE OF PRIVACY 2023-06-09 23:57:12 Doctor Hilda, [facility] PRACTICES [facility] CONSENT/REFUSAL FOR 2023-06-09 23:56:42 Doctor Hilda, [facility] DIAGNOSIS AND TREATMENT [facility] EKG (SCANNED DOCUMENTS) 2023-06-09 05:01:00 Doctor Hilda [facility] COMP. METABOLIC PANEL 2022-12-24 01:55:00 Marianne Prado [facility] ([id number]) Medical Branch ETHANOL 2022-12-24 01:55:00 Marianne Prado [facility] N-TERMINAL PRO-BNP 2022-12-24 01:55:00 Marianne Prado [facility] CBC WITH DIFF 2022-12-24 01:09:00 Marianne Prado [facility] LACTIC ACID WHOLE BLOOD 2022-12-24 00:44:00 Marianne Prado [facility] CONSENT/REFUSAL FOR 2022-12-23 23:48:58 Doctor Hilda [facility] DIAGNOSIS [facility] T[facility]AT[facility] via lumbar 2017-11-10 20:15:24 Memor ial Cool injection, including radiological supervision and interpretation; lumbosacral Administration of [facility] nn steroid<sup>1</sup> Bilateral ligation and [facility] Sushil division of fallopian tubes Hip [facility] replacement<sup>2</sup> Lysis of adhesions of [facility] ermann abdomen Memorial Sushil operation<sup>3</sup> Encounters Start End Encounter Admission Attending Care Care Encounter Source Date/Time Date/Time Type Type Clinicians Facility Department ID 2021-09-03 Emergency [facility] [id number] Univers 18:27:[address] [facility] 2021-09-02 Emergency [facility] [id number] Univers 14:46:[address] [facility] 2021-09-02 Emergency [facility] [id number] Univers 12:08:[address] [facility] 2020-06-08 Inpatient 1 Enrique Phelps [facility] GPY [id number] 22:36:00 Enrique Phelps -[id number] [facility] 2023-06-18 2023-06-18 Transition ES Garcia 1.2.840.114 [id number] Univers 00:00:00 00:00:00 of Care Altagracia MURILLO [id number] it y of KARINE [id number] [facility] [phone] [facility] 403 Branch 2023-06-09 2023-06-17 Inpatient X MARYCRUZHELLEN [facility] JOANNA [id number] Univers 19:09:00 19:22:00 TAWNY ity of [facility] 2023-06-09 2023-06-17 [facility] Jonel Richard [facility] 1.2.840.11 [id number] Univers 19:09:00 19:22:00 Encounter Tawny Reyez [id number] ity of Angie Mathis [id number] [facility] [id number] [facility] 081 Branch 2023-06-09 2023-06-09 Orders Doctor URBINA 1.2.840.114 [id number] Univers 00:00:00 00:00:00 Only Unassigned, EWA [id number] ity of [place] [facility] [id number] Derek as [phone] [facility] 009 Branch 2022-12-23 2022-12-23 Emergency [facility] ERT [id number] Univers 18:04:00 22:00:00 MARIANNE ity of [facility] 2022-12-23 2022-12-23 Emergency [facility] 1.2.840.114 [id number] Univers 18:04:00 22:00:00 [facility] [id number] i ty [facility] [id number] [id number] [facility] 084 Branch 2022-11-03 2022-11-03 Outpatient [facility] [id number] Devoted 00:00:00 00:00:00 [id number] Medica l Group 2022-09-21 2022-09-21 Outpatient DM[facility] [id number] Devoted 00:00:00 00:00:00 [id number] Medica l Group 2022-09-05 2022-09-05 [facility] 1.2.840.114 [id number] Univers 00:00:00 00:00:00 [facility] [id number] it y of [place] [id number] Derek as MEHRDAD?BLEA [phone] [address] OFFICE [facility] 2022-08-08 2022-08-08 [facility] 1.2.840.114 [id number] Univers 00:00:00 00:00:00 [facility] [id number] it y of [place] [id number] Derek as MEHRDAD?BLEA [id number] [address] OFFICE [facility] 2022-07-22 2022-07-22 [facility] 1.2.840.114 [id number] Univers 00:00:00 00:00:00 [facility] [id number] it y of [place] [id number] Derek as MEHRDAD?BLEA [id number] [address] OFFICE [facility] 2022-07-01 2022-07-01 Outpatient DMG DM [id number] Devoted 00:00:00 00:00:00 [id number] Medica l Group 2022-03-06 2022-03-06 Refill [facility] 1.2.840.114 [id number] Univers 00:00:00 00:00:00 [facility] [id number] it y of Herminio MARINO [id number] Derek as MEHRDAD?BLEA [id number] Tn seamus SNEED [address] [place] [address] OFFICE [facility] 2021-08-03 2021-08-03 Outpatient R EVELIN [facility] [id number] Univers 14:15:00 14:15:00 GUILHERME [facility] 2021-07-24 2021-07-24 Nurse Nurse, [facility] Surgery Faculty [facility] 1.2.840.114 [id number] Univers 14:46:56 15:05:55 Visit Jared Santana 350.1.13.1 0 [id number] [id number] Tn seamus duran 188 [facility] 2021-07-24 2021-07-24 Outpatient R [facility] [id number] Univers 14:45:00 14:45:00 ity [facility] 2021-07-23 2021-07-23 Outpatient R [facility] [id number] Univers 13:00:00 13:00:00 itFormerly [facility] 2021-07-16 2021-07-16 Office [facility] 1.2.840.114 [id number] Univers 14:02:48 15:23:39 Visit Jared Marino [id number] [id number] [phone] Tn dical [facility] 201 [facility] 2021-07-16 2021-07-16 [facility] [id number] Univers 13:45:00 13:45:00 JARED [facility] 2021-07-12 2021-07-12 Office [facility] 1.2.840.114 [id number] Univers 14:07:32 16:05:01 Visit Samira Ball [id number] i ty of [place] [id number] Derek as Mehrdad?Blea [id number] [address] Medical Office [facility] 2021-07-12 2021-07-12 [facility] [id number] Univers 14:00:00 14:00:00 SAMIRA yip [facility] 2021-07-12 2021-07-12 Telephone [facility] 1.2.840.114 [id number] Univers 00:00:00 00:00:00 [facility] [id number] it y of [place] [id number] Derek as Mehrdad?Blea [id number] [address] Office [facility] 2021-07-06 2021-07-06 [facility] [id number] Univers 13:30:00 13:30:00 DEBRA ity [facility] 2021-06-28 2021-06-29 Emergency [facility] 1.2.840.114 [id number] Univers 21:24:00 00:38:00 Paula Marino [id number] [place]y [place] [phone] [address] 2021-06-28 2021-06-29 [facility] 1.2.840.114 [id number] Univers 21:24:00 00:38:00 Paula Marino [id number] ity of [place].2.[place] [phone] [address] 2021-06-29 2021-06-29 [facility] 1.2.840.114 [id number] Univers 00:00:00 00:00:00 Guilherme [facility] [id number] it y of [place] 4.2.7.2.686 Derek as Professio [phone] [address] 2021-06-29 2021-06-29 Refill [facility] 1.2.840.114 [id number] Univers 00:00:00 00:00:00 [facility] [id number] it y of [place] 4.2.7.2.686 Derek as Professio [phone] [address] Office [facility] One 2021-05-03 2021-05-03 Telephone [facility] 1.2.840.114 [id number] Univers 00:00:00 00:00:00 [facility] [id number] it y of [place] 4.2.7.2.686 Derek as Professio [phone] [address] One 2021-04-17 2021-04-17 Office [facility] 1.2.840.114 [id number] Univers 10:33:28 10:48:28 Visit [facility] 350.1.13.10 it y of [place] 4.2.7.2.686 Derek as Professio [phone] [address] One 2021-04-17 2021-04-17 Outpatient R [facility] [id number] Univers 10:45:00 10:45:00 GUILHERME ity of [facility] 2021-04-17 2021-04-17 Orders Doctor CARLITOS 1.2.840.114 [id number] Univers 00:00:00 00:00:00 Only Unassigned, EWA [id number] ity of [place] [facility] [id number] Derek as [phone] [facility] 009 Branch 2021-02-22 2021-02-22 Emergency Nas, Wilbert [facility] 1.2.840.114 [id number] Univers 18:11:00 22:14:00 Marci Marino 350.1.13.10 i ty of [place].2.686 [place] [phone] [facility] 084 Branch 2021-02-22 2021-02-22 Urgent Provider, [facility] 1.2.840.114 [id number] Univers 15:22:39 16:55:32 Care Samira [facility] [id number] ity of [place] 4.2.7.2.686 Derek as Professio [phone] [address] One 2021-02-22 2021-02-22 [facility] [id number] Univers 15:20:00 15:20:00 SAMIRA ity of [facility] 2021-02-22 2021-02-22 Telephone [facility] 1.2.840.114 [id number] Univers 00:00:00 00:00:00 [facility] [id number] it y of [place] 4.2.7.2.686 Derek as Professio [phone] [address] Office [facility] One 2021-02-22 2021-02-22 Orders Doctor CARLITOS 1.2.840.114 [id number] Univers 00:00:00 00:00:00 Only Unassigned, EWA 350.1.13.10 ity of [place] [facility] [id number] Derek as [phone] [facility] 009 [place] 2021-02-20 2021-02-20 Telephone [facility] 1.2.840.114 [id number] Univers 00:00:00 00:00:00 [facility] 350.1.13.10 it y of [place] 4.2.7.2.686 Derek as Professio [phone] [address] One 2021-02-12 2021-02-12 Emergency [facility] [id number] [id number] Univers 05:03:00 08:59:00 Chasity S [place] 350.1.13.10 ity of [place] 4.2.7.2.686 [place] [facility] [id number] [facility] 084 [place] 2021-01-16 2021-01-16 [facility] [id number] Univers 13:15:00 13:15:00 CHADWICK ity of [facility] 2020-11-14 2020-11-14 Office [facility] 1.2.840.114 [id number] Univers 09:53:36 10:23:36 Visit Guilherme [facility] 350.1.13.10 it y of Hermin[place] Marino 4.2.7.2.686 Derek as Professio [phone] [address] Office Building One 2020-11-14 2020-11-14 Outpatient R EVELIN [facility] [id number] Univers 10:00:00 10:00:00 GUILHERME ity of [facility] 2020-11-14 2020-11-14 Letter Doctor CARLITOS 1.2.840.114 [id number] Univers 00:00:00 00:00:00 (Out) Unassigned, EWA 350.1.13.10 ity of [place] [facility] [id number] Derek as [phone] [address] 2020-07-02 2020-07-02 Telephone [facility] 1.2.840.114 [id number] Univers 00:00:00 00:00:00 [facility] [id number] it y of [place] 4.2.7.2.686 Derek as Professio [phone] [address] Office Building One 2020-06-08 2020-06-22 Inpatient 1 Enrique Phelps [facility] [id number] 22:36:00 14:25:00 Enrique Phelps [facility] 2020-05-27 2020-06-08 [facility] Chasity Braga [facility] 1.2.840. 114 [id number] Univers 03:30:59 21:28:00 Encounter Angie Mathis [id number] ity of [id number] [phone] [address] 2020-06-02 2020-06-02 Anesthesia Gonzalo Dalton [facility] 1.2.840.11 [id number] Univers 11:20:00 12:34:00 Carlitos Rivera 350.1.13.10 ity [id number] [phone] [place] [address] Branch 2020-05-27 2020-05-27 Emergency X VICTOR HUGO [facility] ERT [id number] Univers 03:30:59 03:30:59 CHASITY yip [facility] 2020-05-26 2020-05-27 [facility] [id number] Memoria 20:33:19 03:17:00 r Cool 05 l [facility] 2020-05-26 2020-05-27 [facility] [id number] Memoria 20:33:19 03:17:00 r Cool 05 l [facility] 2020-05-26 2020-05-27 [facility] [id number] Memoria 20:33:19 03:17:00 r Sushil 05 l [facility] 2020-05-26 2020-05-26 [address] [facility] [id number] 15:33:19 22:17:00 K 2020-05-26 2020-05-26 Outpatient Aliosn Caicedo [facility] M[facility] [id number] 15:33:19 22:17:00 K 2020-05-26 2020-05-26 Emergency E ALISON CAICEDO [facility] MHNW [id number] [facility]NW 15:33:00 22:17:00 2017-11-10 2017-11-11 [facility]patient [facility] [id number] Memoria 18:29:00 05:59:[address] [facility] 2017-11-10 2017-11-11 Outpatient [facility] [id number] Memoria 18:29:00 05:59:[address] [facility] 2017-11-10 2017-11-11 [facility]patient [facility] [id number] Memoria 18:29:00 05:59:[address] [facility] 2017-11-10 2017-11-10 Outpatient Gina [facility] [id number] 12:29:00 23:59:00 Mason Marquez Nunez 2017-11-10 2017-11-10 Outpatient Gina [facility] [id number] 12:29:00 23:59:00 Mason Marquez Enrique 2017-11-10 2017-11-10 Outpatient Gina [facility] [id number] 12:29:00 23:59:00 Mason Nunez 2017-11-10 2017-11-10 Out[facility] [id number] 12:29:00 23:59:00 Mason Zayas Enrique 2017-10-14 2017-10-14 [facility] [id number] Memoria 01:49:00 08:46:00 r Sushil 02 [facility] 2017-10-14 2017-10-14 [facility] [id number] Memoria 01:49:00 08:46:00 r Sushil 02 [facility] 2017-10-14 2017-10-14 [facility] [id number] Memoria 01:49:00 08:46:00 r Sushil 02 [facility] 2017-10-13 2017-10-14 Outpatient Hannah, [facility] [id number] 19:49:00 02:46:00 Rupa Ahmed 02 2017-10-13 2017-10-14 Outpatient Hannah, [facility] [id number] 19:49:00 02:46:00 Rupa Ahmed 02 2017-09-07 2017-09-07 [facility] [id number] Memoria 00:23:00 09:06:00 r Sushil 01 [facility] 2017-09-07 2017-09-07 [facility] [id number] Mem[facility] 00:23:00 09:06:00 r Sushil 01 [facility] 2017-09-07 2017-09-07 [facility] [id number] Memoria 00:23:00 09:06:00 r Sushil 01 [facility] 2017-09-06 2017-09-07 Outpatient Roxy, MHSE MHSE [id number] 19:23:00 03:06:00 Jose Elias P 01 2017-09-06 2017-09-07 Outpatient Roxy, MHSE MHSE [id number] 675 19:23:00 03:06:00 Jose Elias P 01 2017-01-28 2017-01-31 [facility] [id number] Memoria 16:52:00 21:30:00 Outpatient r Sushil [address] [facility] 2017-01-28 2017-01-31 Bedded Stevie [facility] [id number] Memoria 16:52:00 21:30:00 Outpatient r Cool 00 l [facility] 2017-01-28 2017-01-31 Bedded Stevie [facility] [id number] Memoria 16:52:00 21:30:00 Outpatient r Cool 00 l [facility] 2017-01-28 2017-01-31 Outpatient Gina [facility] [id number] 11:52:00 16:30:00 Mason Enrique 2017-01-28 2017-01-31 Outpatient Gina [facility] [id number] 11:52:00 16:30:00 Mason Enrique 2016-10-10 2016-10-11 Outpt Diag nullFlavo [facility] [id number] Memoria 23:25:00 05:59:00 Services r Outpatient 00 l Imaging Sushil [place] 2016-10-10 2016-10-11 Outpt Diag nullFlavo [facility] [id number] Memoria 23:25:00 05:59:00 Services r Outpatient 00 l Imaging Sushil [place] 2016-10-10 2016-10-11 Outpt Diag nullFlavo [facility] [id number] Memoria 23:25:00 05:59:00 Services r Outpatient 00 l Imaging Cool [place] 2016-10-10 2016-10-10 Outpatient Keny Beebe [facility] [id number] 17:25:00 23:59:00 Ramin 2016-10-10 2016-10-10 Outpatient Keny Beebe [facility] [id number] 17:25:00 23:59:00 Results Test Description Test Time Test Comments Results Result Comments Source TROPONIN I 2023-06-10 23:42:26 Test Item Value Reference Range Interpretation Comme nts TROPONIN I (test code = 6623143045) 0.107 ng/mL <=0.034 H MAINOR (test code = MAINRO) Reference (Normal) Range (defined by the 99th percentile reference limit): <= 0.034 ng/mL Note: Cardiac troponin begins to rise 3-4 hours after the onset of ischemia. Repeat in 4-6 hours if the sample was drawn within 3-4 hours of the onset of the symptom and found normal. Diagnosis of myocardial injury is made with acute changes in cTn concentrations with at least one serial sample above the 99th percentile upper reference limit (URL), taken together with the patient's clinical presentation. Biotin has been reported to cause a negative bias, interpret results relative to patient's use of biotin. Lab Interpretation (test code = Abnormal 01029-6) [facility] [id number]51:28 Test Item Value Reference Range Interpretation Comments TROPONIN I (test code = 0.211 ng/mL <=0.034 H [id number]) MAINOR (test code = MAINOR) Reference (Normal) Range (defined by the 99th percentile reference limit): <= 0.034 ng/mL Note: Cardiac troponin begins to rise 3-4 hours after the onset of ischemia. Repeat in 4-6 hours if the sample was drawn within 3-4 hours of the onset of the symptom and found normal. Diagnosis of myocardial injury is made with acute changes in cTn concentrations with at least one serial sample above the 99th percentile upper reference limit (URL), taken together with the patient's clinical presentation. Biotin has been reported to cause a negative bias, interpret results relative to patient's use of biotin. Lab Interpretation Abnormal (test code = 86602-8) [facility] 17:49:16 Test Item Value Reference Range Interpretation Comments MAGNESIUM (test code = 0372243385) 2.3 mg/dL 1.7-2.4 Lab Interpretation (test code = Normal 35261-5) [facility] (NA, K, CL, CO2, GLUCOSE, BUN, CREATININE, CA)2023-06-10 17:48:56 Test Item Value Reference Range Interpretation Comments NA (test code = 133 mmol/L 135-145 L 2520328506) K (test code = 3.5 mmol/L 3.5-5.0 5777204626) CL (test code = 99 mmol/L 98-108 7410906150) CO2 TOTAL (test code = 25 mmol/L 23-31 9805427336) AGAP (test code = 9 2-16 5869803830) BUN (test code = 34 mg/dL 7-23 H 3223623603) GLUCOSE (test code = 95 mg/dL 70-110 1184278141) CREATININE (test code = 0.99 mg/dL 0.50-1.04 8100437328) CALCIUM (test code = 8.9 mg/dL 8.6-10.6 4430316655) eGFR (test code = 55.1 mL/min/1.73m2 6217047156) MAINOR (test code = MAINOR) Association of Glomerular Filtration Rate (GFR) and Staging of Kidney Disease* + --+ --+ ------+| GFR (mL/min/1.73 m2) ?| With Kidney Damage ?| ?Without Kidney Damage+ --------+ --------+ +| ?>90 ?| ?Stage one ?| ? Normal ?+ ---+ ---+ -------+| ?60-89 ?| ?Stage two ?| ? Decreased GFR ? + --+ --+ ------+| ?30-59 ?| ?Stage three ?| ? Stage three ? + --+ --+ ------+| ?15-29 ?| ?Stage four ? | ? Stage four ?+ ---+ ---+ -------+| ?<15 (or dialysis) ? ?| ?Stage five ? | ? Stage five ?+ ---+ ---+ -------+ *Each stage assumes the associated GFR level has been in effect for at least three months. ?Stages 1 to 5, with or without kidney disease, indicate chronic kidney disease. Notes: Determination of stages one and two (with eGFR >59mL/min/1.73 m2) requires estimation of kidney damage for at least three months as defined by structural or functional abnormalities of the kidney, manifested by either:Pathological abnormalities or Markers of kidney damage (including abnormalities in the composition of the blood or urine or abnormalities in imaging tests). Lab Interpretation Abnormal (test code = 41113-4) [facility] WITH [id number] 17:40:50 Test Item Value Reference Range Interpretation Comments WBC (test code = 10.38 See_Comment [Automated 7342-2) message] The sy stem which generated this result transmitted reference range : 4.30 - 11.10 10*3/?L. The reference range was not used to interpret this result as normal/abnormal . RBC (test code = 4.29 See_Comment [Automated 789-8) message] The sy stem which generated this result transmitted reference range : 3.93 - 5.25 10*6/?L. The reference range was not used to interpret this result as normal/abnormal . HGB (test code = 13.1 g/dL 11.6-15.0 718-7) HCT (test code = 38.3 % 35.7-45.2 4544-3) MCV (test code = 89.3 fL 80.6-95.5 787-2) MCH (test code = 30.5 pg 25.9-32.8 785-6) MCHC (test code = 34.2 g/dL 31.6-35.1 786-4) RDW-SD (test code = 43.7 fL 39.0-49.9 55530-6) RDW-CV (test code = 13.3 % 12.0-15.5 788-0) PLT (test code = 315 See_Comment [Automated 777-3) message] The sy stem which generated this result transmitted reference range : 166 - 358 10*3/ ?L. The reference r pascual was not used to interpret this result as normal/abnormal . MPV (test code = 10.0 fL 9.5-12.9 02117-9) NRBC/100 WBC (test 0.0 See_Comment [Automat ed code = 0227255617) message] The system which generated this result transmitted reference range : 0.0 - 10.0 /100 WBCs. The refer ence range was not u sed to interpret th is result as normal/abnormal . NRBC x10^3 (test code See_Comment [Auto mated = 0435547460) message] The s ystem which generated this result transmitted reference range : 10*3/?L. The reference range was not used to interpret this result as normal/abnormal . GRAN MAT (NEUT) % 74.8 % (test code = 770-8) IMM GRAN % (test code 0.40 % = 9753095063) LYMPH % (test code = 16.8 % 736-9) MONO % (test code = 7.4 % 5905-5) EOS % (test code = 0.1 % 713-8) BASO % (test code = 0.5 % 706-2) GRAN MAT x10^3(ANC) 7.77 10*3/uL 1.88-7.09 H (test code = 9962575561) IMM GRAN x10^3 (test 0.04 10*3/uL 0.00-0.06 code = 5213443949) LYMPH x10^3 (test code 1.74 10*3/uL 1.32-3.29 = 731-0) MONO x10^3 (test code 0.77 10*3/uL 0.33-0.92 = 742-7) EOS x10^3 (test code = 0.03-0.39 L 711-2) BASO x10^3 (test code 0.05 10*3/uL 0.01-0.07 = 704-7) Lab Interpretation Abnormal (test code = 34327-8) [facility] [id number] 14:42:05 Test Item Value Reference Range Interpretation Comments TROPONIN I (test code = 0.170 ng/mL <=0.034 H 1808846172) MAINOR (test code = MAINOR) Reference (Normal) Range (defined by the 99th percentile reference limit): <= 0.034 ng/mL Note: Cardiac troponin begins to rise 3-4 hours after the onset of ischemia. Repeat in 4-6 hours if the sample was drawn within 3-4 hours of the onset of the symptom and found normal. Diagnosis of myocardial injury is made with acute changes in cTn concentrations with at least one serial sample above the 99th percentile upper reference limit (URL), taken together with the patient's clinical presentation. Biotin has been reported to cause a negative bias, interpret results relative to patient's use of biotin. 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 Repeat in 4-6 hours if the sample was drawn within 3-4 hours of the onset of the symptom and found normal. Diagnosis of myocardial injury is made with acute changes in cTn concentrations with at least one serial sample above the 99th percentile upper reference limit (URL), taken together with the patient's clinical presentation. Biotin has been reported to cause a negative bias, interpret results relative to patient's use of biotin. Lab Interpretation Abnormal (test code = 31652-8) [facility] METABOLIC PANEL (99228)2023-06-10 02:14:42 Test Item Value Reference Range Interpretation Comments NA (test code = 136 mmol/L 135-145 0637922415) K (test code = 3.6 mmol/L 3.5-5.0 3444093468) CL (test code = 94 mmol/L 98-108 L 5176172649) CO2 TOTAL (test code = 26 mmol/L 23-31 3574250788) AGAP (test code = 16 2-16 4848191691) BUN (test code = 46 mg/dL 7-23 H 5047945503) GLUCOSE (test code = 103 mg/dL 70-110 4146374526) CREATININE (test code = 1.20 mg/dL 0.50-1.04 H 5122989130) TOTAL BILI (test code = 1.1 mg/dL 0.1-1.1 0843506189) CALCIUM (test code = 9.4 mg/dL 8.6-10.6 5311286374) T PROTEIN (test code = 8.1 g/dL 6.3-8.2 1845919230) ALBUMIN (test code = 4.6 g/dL 3.5-5.0 9506014288) ALK PHOS (test code = 113 U/L 34-122 3824382564) ALTv (test code = 20 U/L 5-35 1742-6) AST(SGOT) (test code = 40 U/L 13-40 7645060051) eGFR (test code = 44.2 mL/min/1.73m2 9709921190) MAINOR (test code = MAINOR) Association of Glomerular Filtration Rate (GFR) and Staging of Kidney Disease* + --+ --+ ------+| GFR (mL/min/1.73 m2) ?| With Kidney Damage ?| ?Without Kidney Damage+ --------+ --------+ +| ?>90 ?| ?Stage one ?| ? Normal ?+ ---+ ---+ -------+| ?60-89 ?| ?Stage two ?| ? Decreased GFR ? + --+ --+ ------+| ?30-59 ?| ?Stage three ?| ? Stage three ? + --+ --+ ------+| ?15-29 ?| ?Stage four ? | ? Stage four ?+ ---+ ---+ -------+| ?<15 (or dialysis) ? ?| ?Stage five ? | ? Stage five ?+ ---+ ---+ -------+ *Each stage assumes the associated GFR level has been in effect for at least three months. ?Stages 1 to 5, with or without kidney disease, indicate chronic kidney disease. Notes: Determination of stages one and two (with eGFR >59mL/min/1.73 m2) requires estimation of kidney damage for at least three months as defined by structural or functional abnormalities of the kidney, manifested by either:Pathological abnormalities or Markers of kidney damage (including abnormalities in the composition of the blood or urine or abnormalities in imaging tests). Lab Interpretation Abnormal (test code = 88316-4) [facility] 02:14:22 Test Item Value Reference Range Interpretation Comments LIPASE (test code = 2915145835) 177 U/L 0-220 Lab Interpretation (test code = Normal 51648-4) [facility] WITH [id number] 02:11:20 Test Item Value Reference Range Interpretation Comments WBC (test code = 11.38 See_Comment H [Automated 7356-2) message] The sy stem which generated this result transmitted reference range : 4.30 - 11.10 10*3/?L. The reference range was not used to interpret this result as normal/abnormal . RBC (test code = 5.10 See_Comment [Automated 404-8) message] The sy stem which generated this result transmitted reference range : 3.93 - 5.25 10*6/?L. The reference range was not used to interpret this result as normal/abnormal . HGB (test code = 15.5 g/dL 11.6-15.0 H 718-7) HCT (test code = 44.4 % 35.7-45.2 4544-3) MCV (test code = 87.1 fL 80.6-95.5 787-2) MCH (test code = 30.4 pg 25.9-32.8 785-6) MCHC (test code = 34.9 g/dL 31.6-35.1 786-4) RDW-SD (test code = 42.2 fL 39.0-49.9 38468-8) RDW-CV (test code = 13.3 % 12.0-15.5 788-0) PLT (test code = 351 See_Comment [Automated 777-3) message] The sy stem which generated this result transmitted reference range : 166 - 358 10*3/ ?L. The reference r pascual was not used to interpret this result as normal/abnormal . MPV (test code = 10.0 fL 9.5-12.9 56601-0) NRBC/100 WBC (test 0.0 See_Comment [Automat ed code = 8331659885) message] The system which generated this result transmitted reference range : 0.0 - 10.0 /100 WBCs. The refer ence range was not u sed to interpret th is result as normal/abnormal . NRBC x10^3 (test code See_Comment [Auto mated = 1160068007) message] The s ystem which generated this result transmitted reference range : 10*3/?L. The reference range was not used to interpret this result as normal/abnormal . GRAN MAT (NEUT) % 79.4 % (test code = 770-8) IMM GRAN % (test code 0.40 % = 0366931562) LYMPH % (test code = 12.0 % 736-9) MONO % (test code = 7.7 % 5905-5) EOS % (test code = 0.1 % 713-8) BASO % (test code = 0.4 % 706-2) GRAN MAT x10^3(ANC) 9.03 10*3/uL 1.88-7.09 H (test code = 3932482989) IMM GRAN x10^3 (test 0.05 10*3/uL 0.00-0.06 code = 5491443628) LYMPH x10^3 (test code 1.37 10*3/uL 1.32-3.29 = 731-0) MONO x10^3 (test code 0.88 10*3/uL 0.33-0.92 = 742-7) EOS x10^3 (test code = 0.03-0.39 L 711-2) BASO x10^3 (test code 0.04 10*3/uL 0.01-0.07 = 704-7) Lab Interpretation Abnormal (test code = 16055-9) [facility] without [id number] 06:41:29 Test Item Value Reference Range Interpretation Comments WBC (test code = WBC) 10.3 x10 4.4-10.5 RBC (test code = RBC) 3.09 x10 3.75-5.20 L Hgb (test code = Hgb) 10.0 g/dL 12.2-14.8 L Hct (test code = Hct) 29.7 % 36.5-44.4 L MCV (test code = MCV) 96.10 fL 80.00-100.00 MCH (test code = MCH) 32.4 pg 27.0-32.5 MCHC (test code = MCHC) 33.70 g/dL 32.00-37.50 RDW CV (test code = RDW CV) 12.3 % 11.5-14.5 Platelets (test code = Platelets) 621.0 x10 140.0-440.0 H MPV (test code = MPV) 8.9 fL N nRBC (test code = nRBC) 0 N NRBC Abs (test code = NRBC Abs) 0.00 x10 N IPF (test code = IPF) 0 % N Complete Blood Count without [id number] 06:50:28 Test Item Value Reference Range Interpretation Comments WBC (test code = WBC) 9.7 x10 4.4-10.5 RBC (test code = RBC) 2.93 x10 3.75-5.20 L Hgb (test code = Hgb) 9.3 g/dL 12.2-14.8 L Hct (test code = Hct) 29.2 % 36.5-44.4 L MCV (test code = MCV) 99.70 fL 80.00-100.00 MCH (test code = MCH) 31.7 pg 27.0-32.5 MCHC (test code = MCHC) 31.80 g/dL 32.00-37.50 L RDW CV (test code = RDW CV) 12.2 % 11.5-14.5 Platelets (test code = Platelets) 629.0 x10 140.0-440.0 H MPV (test code = MPV) 8.7 fL N nRBC (test code = nRBC) 0 N NRBC Abs (test code = NRBC Abs) 0.00 x10 N IPF (test code = IPF) 0 % N Basic Metabolic [id number] 05:38:52 Test Item Value Reference Range Interpretation Comments Sodium Level (test code = Sodium 137.0 mmol/L 136.0-145.0 Level) Potassium Level (test code = 4.20 mmol/L 3.50-5.10 Potassium Level) Chloride Level (test code = 104.0 mmol/L 98.0-107.0 Chloride Level) CO2 (test code = CO2) 28 mmol/L 20-31 Anion Gap (test code = Anion 5.5 mmol/L 5.0-15.0 Gap) BUN (test code = BUN) 13 mg/dL 9-23 Creatinine Level (test code = 0.67 mg/dL 0.55-1.02 Creatinine Level) BUN/Creat Ratio (test code = 19.4 ratio 10.0-20.0 BUN/Creat Ratio) Glucose Level (test code = 109 mg/dL 74-106 H Glucose Level) Calcium Level (test code = 9.7 mg/dL 8.3-10.6 Calcium Level) Hemolysis (test code = 0 mg/dL 8-11 Hemolysis) Icterus (test code = Icterus) 0 mg/dL 8-11 Lipemia (test code = Lipemia) 0 mg/dL 8-11 Basic Metabolic [id number] 05:38:52 Test Item Value Reference Range Interpretation Comments Sodium Level (test 137.0 mmol/L 136.0-145.0 code = Sodium Level) Potassium Level 4.20 mmol/L 3.50-5.10 (test code = Potassium Level) Chloride Level (test 104.0 mmol/L 98.0-107.0 code = Chloride Level) CO2 (test code = 28 mmol/L 20-31 CO2) Anion Gap (test code 5.5 mmol/L 5.0-15.0 = Anion Gap) BUN (test code = 13 mg/dL 9-23 BUN) Creatinine Level 0.67 mg/dL 0.55-1.02 (test code = Creatinine Level) BUN/Creat Ratio 19.4 ratio 10.0-20.0 (test code = BUN/Creat Ratio) Glucose Level (test 109 mg/dL 74-106 H code = Glucose Level) Calcium Level (test 9.7 mg/dL 8.3-10.6 code = Calcium Level) eGFR AA (test code = >60 >=60 eGFR (e stimated eGFR AA) mL/min/1.73 m2 Glomerular Filtration Rate ) is an estimated va lue, calculated from the patient's serum creatinine usin g the MDRD equation. It is NOT the patient 's actual GFR. The eGFR provides a more clinically usef ul measure of kidn ey disease than se rum creatinine alone.This calculation fidencio es sex and race in to account, if the information is provided. If th e race is not provided, and t he patient is -Jaci n, multiply by 1.2 12. If sex is not provided, and t he patient is fema le, multiply by 0.7 42. Results for pat ients <18 years of ag e have not been validated by th e MDRD study and should be interpreted wit h caution. eGFR R esult Interpretation: eGFR > or = 60 is in the Normal RangeeGF R < 60 may mean kid mariah diseaseeGFR < 1 5 may mean kidney failure Rang es recommended by the National Kidney Foundation, http://nkdep.ni h.gov Hemolysis (test code 0 mg/dL 8-11 = Hemolysis) Icterus (test code = 0 mg/dL 8-11 Icterus) Lipemia (test code = 0 mg/dL 8-11 Lipemia) Basic Metabolic [id number] 05:38:52 Test Item Value Reference Range Interpretation Comments Sodium Level (test 137.0 mmol/L 136.0-145.0 code = Sodium Level) Potassium Level 4.20 mmol/L 3.50-5.10 (test code = Potassium Level) Chloride Level (test 104.0 mmol/L 98.0-107.0 code = Chloride Level) CO2 (test code = 28 mmol/L 20-31 CO2) Anion Gap (test code 5.5 mmol/L 5.0-15.0 = Anion Gap) BUN (test code = 13 mg/dL 9-23 BUN) Creatinine Level 0.67 mg/dL 0.55-1.02 (test code = Creatinine Level) BUN/Creat Ratio 19.4 ratio 10.0-20.0 (test code = BUN/Creat Ratio) Glucose Level (test 109 mg/dL 74-106 H code = Glucose Level) Calcium Level (test 9.7 mg/dL 8.3-10.6 code = Calcium Level) eGFR AA (test code = >60 >=60 eGFR (e stimated eGFR AA) mL/min/1.73 m2 Glomerular Filtration Rate ) is an estimated va lue, calculated from the patient's serum creatinine usin g the MDRD equation. It is NOT the patient 's actual GFR. The eGFR provides a more clinically usef ul measure of kidn ey disease than se rum creatinine alone.This calculation fidencio es sex and race in to account, if the information is provided. If th e race is not provided, and t he patient is -Jaci n, multiply by 1.2 12. If sex is not provided, and t he patient is fema le, multiply by 0.7 42. Results for pat ients <18 years of ag e have not been validated by th e MDRD study and should be interpreted wit h caution. eGFR R esult Interpretation: eGFR > or = 60 is in the Normal RangeeGF R < 60 may mean kid mariah diseaseeGFR < 1 5 may mean kidney failure Rang es recommended by the National Kidney Foundation, http://nkdep.ni h.gov eGFR Non-AA (test >60.00 >=60.00 eGFR (biju mated code = eGFR Non-AA) mL/min/1.73 m2 Glomer ular Filtration Rate ) is an estimated va lue, calculated from the patient's serum creatinine usin g the MDRD equation. It is NOT the patient 's actual GFR. The eGFR provides a more clinically usef ul measure of kidn ey disease than se rum creatinine alone.This calculation fidencio es sex and race in to account, if the information is provided. If th e race is not provided, and t he patient is -Jaci n, multiply by 1.2 12. If sex is not provided, and t he patient is fema le, multiply by 0.7 42. Results for pat ients <18 years of ag e have not been validated by th e MDRD study and should be interpreted wit h caution. eGFR R esult Interpretation: eGFR > or = 60 is in the Normal RangeeGF R < 60 may mean kid mariah diseaseeGFR < 1 5 may mean kidney failure Rang es recommended by the National Kidney Foundation, http://nkdep.ni h.gov Hemolysis (test code 0 mg/dL 8-11 = Hemolysis) Icterus (test code = 0 mg/dL 8-11 Icterus) Lipemia (test code = 0 mg/dL 8-11 Lipemia) RPR [id number] 12:10:55 Test Item Value Reference Range Interpretation Comments RPR Qual (test code = RPR Qual) Non-Reactive Non-Reactive Reactive Control (test code = Reactive Reactive Control) Weak Reactive Control (test Weak Reactive code = Weak Reactive Control) Non-Reactive Control (test code Non-Reactive = Non-Reactive Control) Lot # (test code = Lot #) [id number] N Expiration Dt (test code = 08-02-2021 N Expiration Dt) POC [id number] 07:55:27 Test Item Value Reference Range Interpretation Comments Glucose POC (test 138 mg/dL 70-115 H If you con medical superintendent your code = Glucose POC) patient critically ill, the Dory-Accu Check Infrom II meter should not be used for Glucose determination. Draw a venous Glucose and send to the main Lab for analysis. Thyroid Stimulating [id number] 05:45:32 Test Item Value Reference Range Interpretation Comments TSH (test code = TSH) 2.076 mcIU/mL 0.550-4.780 Lipid [id number] 05:45:31 Test Item Value Reference Range Interpretation Comments Cholesterol Total 157 mg/dL N Low-risk l evel (test code = (desirable) - < 200 Cholesterol Total) mg/dlMode rate-risk level (borderli ne) - 200-239 mg/dlHigh-risk level - ?240 mg/dl Triglycerides (test 132 mg/dL N Normal - <150 code = Triglycerides) mg/dlB orderline high - 150-199 mg/dl High - 200-499 mg/dl Very high - ?500 mg/ dl HDL (test code = HDL) 49.70 mg/dL N Low-ri sk level (desirable) - ? 60 mg/dlHigh-risk level (undesirable) - <40 mg/dl LDL (test code = LDL) 81 mg/dL N The eq uation being used in this calculation is LDL = (Chol - HDL) - (Trig / 5) VLDL (test code = 26 mg/dL 5-40 The equati on being VLDL) used in this calculation is VLDL = Trig / 5 Chol/HDL (test code = 3.2 ratio <=5.0 Chol/HDL) LDL/HDL Ratio (test 3 N The equa tion being code = LDL/HDL Ratio) used i n this calculation is LDL/HDL Ratio=L DL Calc/HDL Chol Hemoglobin [id number] 05:45:31ErrorDiabetic >=6.5 %Prediabetes 5.7-6.4 %Normal <5.7 %Comprehensive Metabolic [id number] 12:00:19 Test Item Value Reference Range Interpretation Comments Sodium Level (test code = Sodium 135.0 mmol/L 136.0-145.0 L Level) Potassium Level (test code = 4.40 mmol/L 3.50-5.10 Potassium Level) Chloride Level (test code = 105.0 mmol/L 98.0-107.0 Chloride Level) CO2 (test code = CO2) 24 mmol/L 20-31 Anion Gap (test code = Anion 5.8 mmol/L 5.0-15.0 Gap) BUN (test code = BUN) 16 mg/dL 9-23 Creatinine Level (test code = 0.69 mg/dL 0.55-1.02 Creatinine Level) BUN/Creat Ratio (test code = 23.2 ratio 10.0-20.0 H BUN/Creat Ratio) Glucose Level (test code = 111 mg/dL 74-106 H Glucose Level) Calcium Level (test code = 8.8 mg/dL 8.3-10.6 Calcium Level) Alk Phos (test code = Alk Phos) 70 U/L 46-116 Bilirubin Total (test code = <0.2 mg/dL 0.2-1.1 Bilirubin Total) Albumin Level (test code = 3.4 g/dL 3.2-4.8 Albumin Level) Protein Total (test code = 5.5 g/dL 5.7-8.2 L Protein Total) ALT (test code = ALT) 13 U/L 10-49 AST (test code = AST) 14 U/L <=34 Globulin (test code = Globulin) 2.1 g/dL 2.3-3.5 L A/G Ratio (test code = A/G 1.6 g/dL 0.8-2.0 Ratio) Hemolysis (test code = 0 g/dL 1-2 Hemolysis) Icterus (test code = Icterus) 0 g/dL 1-2 Lipemia (test code = Lipemia) 0 g/dL 1-2 Comprehensive Metabolic [id number] 12:00:19 Test Item Value Reference Range Interpretation Comments Sodium Level (test 135.0 mmol/L 136.0-145.0 L code = Sodium Level) Potassium Level 4.40 mmol/L 3.50-5.10 (test code = Potassium Level) Chloride Level (test 105.0 mmol/L 98.0-107.0 code = Chloride Level) CO2 (test code = 24 mmol/L 20-31 CO2) Anion Gap (test code 5.8 mmol/L 5.0-15.0 = Anion Gap) BUN (test code = 16 mg/dL 9-23 BUN) Creatinine Level 0.69 mg/dL 0.55-1.02 (test code = Creatinine Level) BUN/Creat Ratio 23.2 ratio 10.0-20.0 H (test code = BUN/Creat Ratio) Glucose Level (test 111 mg/dL 74-106 H code = Glucose Level) Calcium Level (test 8.8 mg/dL 8.3-10.6 code = Calcium Level) Alk Phos (test code 70 U/L 46-116 = Alk Phos) Bilirubin Total <0.2 mg/dL 0.2-1.1 (test code = Bilirubin Total) Albumin Level (test 3.4 g/dL 3.2-4.8 code = Albumin Level) Protein Total (test 5.5 g/dL 5.7-8.2 L code = Protein Total) ALT (test code = 13 U/L 10-49 ALT) AST (test code = 14 U/L <=34 AST) Globulin (test code 2.1 g/dL 2.3-3.5 L = Globulin) A/G Ratio (test code 1.6 g/dL 0.8-2.0 = A/G Ratio) eGFR AA (test code = >60 >=60 eGFR (e stimated eGFR AA) mL/min/1.73 m2 Glomerular Filtration Rate ) is an estimated va lue, calculated from the patient's serum creatinine usin g the MDRD equation. It is NOT the patient 's actual GFR. The eGFR provides a more clinically usef ul measure of kidn ey disease than se rum creatinine alone.This calculation fidencio es sex and race in to account, if the information is provided. If th e race is not provided, and t he patient is -Jaci n, multiply by 1.2 12. If sex is not provided, and t he patient is fema le, multiply by 0.7 42. Results for pat ients <18 years of ag e have not been validated by th e MDRD study and should be interpreted wit h caution. eGFR R esult Interpretation: eGFR > or = 60 is in the Normal RangeeGF R < 60 may mean kid mariah diseaseeGFR < 1 5 may mean kidney failure Rang es recommended by the National Kidney Foundation, http://nkdep.ni h.gov Hemolysis (test code 0 g/dL 1-2 = Hemolysis) Icterus (test code = 0 g/dL 1-2 Icterus) Lipemia (test code = 0 g/dL 1-2 Lipemia) Comprehensive Metabolic [id number] 12:00:19 Test Item Value Reference Range Interpretation Comments Sodium Level (test 135.0 mmol/L 136.0-145.0 L code = Sodium Level) Potassium Level 4.40 mmol/L 3.50-5.10 (test code = Potassium Level) Chloride Level (test 105.0 mmol/L 98.0-107.0 code = Chloride Level) CO2 (test code = 24 mmol/L 20-31 CO2) Anion Gap (test code 5.8 mmol/L 5.0-15.0 = Anion Gap) BUN (test code = 16 mg/dL 9-23 BUN) Creatinine Level 0.69 mg/dL 0.55-1.02 (test code = Creatinine Level) BUN/Creat Ratio 23.2 ratio 10.0-20.0 H (test code = BUN/Creat Ratio) Glucose Level (test 111 mg/dL 74-106 H code = Glucose Level) Calcium Level (test 8.8 mg/dL 8.3-10.6 code = Calcium Level) Alk Phos (test code 70 U/L 46-116 = Alk Phos) Bilirubin Total <0.2 mg/dL 0.2-1.1 (test code = Bilirubin Total) Albumin Level (test 3.4 g/dL 3.2-4.8 code = Albumin Level) Protein Total (test 5.5 g/dL 5.7-8.2 L code = Protein Total) ALT (test code = 13 U/L 10-49 ALT) AST (test code = 14 U/L <=34 AST) Globulin (test code 2.1 g/dL 2.3-3.5 L = Globulin) A/G Ratio (test code 1.6 g/dL 0.8-2.0 = A/G Ratio) eGFR AA (test code = >60 >=60 eGFR (e stimated eGFR AA) mL/min/1.73 m2 Glomerular Filtration Rate ) is an estimated va lue, calculated from the patient's serum creatinine usin g the MDRD equation. It is NOT the patient 's actual GFR. The eGFR provides a more clinically usef ul measure of kidn ey disease than se rum creatinine alone.This calculation fidencio es sex and race in to account, if the information is provided. If th e race is not provided, and t he patient is -Jaci n, multiply by 1.2 12. If sex is not provided, and t he patient is fema le, multiply by 0.7 42. Results for pat ients <18 years of ag e have not been validated by th e MDRD study and should be interpreted wit h caution. eGFR R esult Interpretation: eGFR > or = 60 is in the Normal RangeeGF R < 60 may mean kid mariah diseaseeGFR < 1 5 may mean kidney failure Rang es recommended by the National Kidney Foundation, http://nkdep.ni h.gov eGFR Non-AA (test >60.00 >=60.00 eGFR (biju mated code = eGFR Non-AA) mL/min/1.73 m2 Glomer ular Filtration Rate ) is an estimated va lue, calculated from the patient's serum creatinine usin g the MDRD equation. It is NOT the patient 's actual GFR. The eGFR provides a more clinically usef ul measure of kidn ey disease than se rum creatinine alone.This calculation fidencio es sex and race in to account, if the information is provided. If th e race is not provided, and t he patient is -Jaci n, multiply by 1.2 12. If sex is not provided, and t he patient is fema le, multiply by 0.7 42. Results for pat ients <18 years of ag e have not been validated by th e MDRD study and should be interpreted wit h caution. eGFR R esult Interpretation: eGFR > or = 60 is in the Normal RangeeGF R < 60 may mean kid mariah diseaseeGFR < 1 5 may mean kidney failure Rang es recommended by the National Kidney Foundation, http://nkdep.ni h.gov Hemolysis (test code 0 g/dL 1-2 = Hemolysis) Icterus (test code = 0 g/dL 1-2 Icterus) Lipemia (test code = 0 g/dL 1-2 Lipemia) IG [id number] 11:44:13 Test Item Value Reference Range Interpretation Comments IG (test code = IG) 0.3 % 0.0-5.0 IG Abs (test code = IG Abs) 0 x10 N Complete Blood Count with Fkqcsxegswks1226-36-21 11:44:12 Test Item Value Reference Range Interpretation Comments WBC (test code = WBC) 15.1 x10 4.4-10.5 H RBC (test code = RBC) 2.82 x10 3.75-5.20 L Hgb (test code = Hgb) 9.5 g/dL 12.2-14.8 L Hct (test code = Hct) 27.5 % 36.5-44.4 L MCV (test code = MCV) 97.50 fL 80.00-100.00 MCHC (test code = 34.50 g/dL 32.00-37.50 MCHC) RDW CV (test code = 12.5 % 11.5-14.5 RDW CV) MCH (test code = MCH) 33.7 pg 27.0-32.5 H Platelets (test code = 598.0 x10 140.0-440.0 H Platelets) MPV (test code = MPV) 8.5 fL N Slide Review (test Auto Auto Result cr eated by code = Slide Review) GL_SJM_ SLIDE_REV_AUTO nRBC (test code = 0 N nRBC) NRBC Abs (test code = 0.00 x10 N NRBC Abs) IPF (test code = IPF) 0 % N Automated [id number] 11:44:12 Test Item Value Reference Range Interpretation Comments Neutro Auto (test code = Neutro 82.9 % 36.0-70.0 H Auto) Lymph Auto (test code = Lymph Auto) 9.5 % 12.0-44.0 L [place] Auto (test code = [place] Auto) 5.2 % 0.0-11.0 Eos, Auto (test code = Eos, Auto) 1.6 % 0.0-7.0 Basophil Auto (test code = Basophil 0.5 % 0.0-2.0 Auto) Neutro Absolute (test code = Neutro 12.5 x10 1.6-7.4 H Absolute) Lymph Absolute (test code = Lymph 1.44 x10 .50-4.60 Absolute) [place] Absolute (test code = [place] .78 x10 .00-1.20 Absolute) Eos Absolute (test code = Eos 0.24 x10 0.00-0.74 Absolute) Baso Absolute (test code = Baso 0.07 x10 0.00-0.21 Absolute) [id number] 21:26:00 Test Item Value Reference Range Interpretation Comments Eosinophils (test code = 0.1 See_Comment [A utomated message] The Eosinophils) system which ge nerated this result tra nsmitted reference range : <=4.0. The reference r pascual was not used to int erpret this result as normal/abnormal . [facility]ESM4743[facility] 21:26:00 Test Item Value Reference Range Interpretation Comments Basophils (test code = 0.3 See_Comment [Aut omated message] The Basophils) system which ge nerated this result tra nsmitted reference range : <=1.0. The reference r pascual was not used to int erpret this result as normal/abnormal . [facility] HospitalZkbddbzPDYYDPGIMD4696-54-64 21:26:00 Test Item Value Reference Range Interpretation Comments Neutrophils # (test code = Neutrophils 10.9 1.5-8.1 #) [facility] HospitalXlcbubcQAJDIGNZKU1820-44-75 21:26:00 Test Item Value Reference Range Interpretation Comments Lymphocytes # (test code = Lymphocytes 0.6 1.0-5.5 #) [facility] HospitalEeadfgqZBFYPCXFAB0275-16-01 21:26:00 Test Item Value Reference Range Interpretation Comments Monocytes # (test code 0.6 See_Comment [Aut omated message] The = Monocytes #) system which generated this result tra nsmitted reference range : <=0.8. The reference r pascual was not used to int erpret this result as normal/abnormal . [facility] HospitalJwdzkptFNPJNDHWYT1523-61-79 21:26:00 Test Item Value Reference Range Interpretation Comments Macrocyte (test code = 1+ *ABN*(05/26/20 Macrocyte) 4:26 PM) [facility]TbzmtcqPFYSWNJGYD0838-06-08 21:26:00 Test Item Value Reference Range Interpretation Comments Acetaminoph Lvl (test code = 3 -20 Acetaminoph Lvl) [place] [id number] 21:26:00 Test Item Value Reference Range Interpretation Comments Ethanol Lvl (test code = Ethanol Lvl) 7 [facility]vineVyphlrkIXZFSUJNFB4714-26-99 21:26:00 Test Item Value Reference Range Interpretation Comments Etoh (%) (test code = Etoh (%)) 0.007 [facility]vineEbvgjryZEBUYVWXZD6358-57-00 21:26:00 Test Item Value Reference Range Interpretation Comments Salicylate Lvl (test no gt See_Comment [Autom ated message] The code = Salicylate Lvl) syste m which generated this result tra nsmitted reference range : <=30.0. The reference r pascual was not used to int erpret this result as normal/abnormal . [facility] [id number] 21:26:00 Test Item Value Reference Range Interpretation Comments Glucose Lvl (test code = Glucose Lvl) 88 70-99 [place] 567530-07-24 21:26:00 Test Item Value Reference Range Interpretation Comments BUN (test code = BUN) 9 7-22 [place] 567530-07-24 21:26:00 Test Item Value Reference Range Interpretation Comments Creatinine Lvl (test code = Creatinine 1.05 0.50-1.40 Lvl) [place] 567530-07-24 21:26:00 Test Item Value Reference Range Interpretation Comments Sodium Lvl (test code = Sodium Lvl) 140 135-145 [place] 567530-07-24 21:26:00 Test Item Value Reference Range Interpretation Comments Potassium Lvl (test code = Potassium 3.5 3.5-5.1 Lvl) [place] 567530-07-24 21:26:00 Test Item Value Reference Range Interpretation Comments Chloride Lvl (test code = Chloride Lvl) 103 95-109 [place] 567530-07-24 21:26:00 Test Item Value Reference Range Interpretation Comments CO2 (test code = CO2) 29 24-32 [place] 567530-07-24 21:26:00 Test Item Value Reference Range Interpretation Comments Calcium Lvl (test code = Calcium Lvl) 8.0 8.5-10.5 [facility]2020-07-24 21:26:00 Test Item Value Reference Range Interpretation Comments Total Protein (test code = Total 5.6 6.4-8.4 Protein) [place] 567530-07-24 21:26:00 Test Item Value Reference Range Interpretation Comments Albumin Lvl (test code = Albumin Lvl) 2.4 3.5-5.0 [place] 567530-07-24 21:26:00 Test Item Value Reference Range Interpretation Comments ALT (test code = ALT) 39 See_Comment [Auto mated message] The system which ge nerated this result transmit tracy reference range : <=65. The reference range was not used to interpr et this result as ramón l/abnormal. [facility] DistrictSliced Apples [id number] 21:26:00 Test Item Value Reference Range Interpretation Comments AST (test code = AST) 61 See_Comment [Auto mated message] The system which ge nerated this result transmit tracy reference range : <=37. The reference range was not used to interpr et this result as ramón l/abnormal. [facility] [employer] [id number] 21:26:00 Test Item Value Reference Range Interpretation Comments Alk Phos (test code = Alk Phos) 110 39-136 [facility]lake[facility] [id number] 21:26:00 Test Item Value Reference Range Interpretation Comments Bili Total (test code = Bili Total) 0.9 0.2-1.3 [facility] [employer] [id number] 21:26:00 Test Item Value Reference Range Interpretation Comments AGAP (test code = AGAP) 11.5 10.0-20.0 [facility] [employer] [id number] 21:26:00 Test Item Value Reference Range Interpretation Comments B/C Ratio (test code = B/C Ratio) 9 1 6-25 [facility] [id number] 21:26:00 Test Item Value Reference Range Interpretation Comments Globulin (test code = Globulin) 3.2 2.7-4.2 [facility] [id number] 21:26:00 Test Item Value Reference Range Interpretation Comments A/G Ratio (test code = A/G Ratio) 0.8 1 0.7-1.6 [facility]lake[facility] [id number] 21:26:00 Test Item Value Reference Range Interpretation Comments eGFR (test code = eGFR) 54 [facility]lakeHudge[facility] Temple [id number] 21:26:00 Test Item Value Reference Range Interpretation Comments U Amph Scr (test code Negative *NA*(05/26/20 = U Amph Scr) 4:26 PM) [facility] SouthlakeCranewareDRUG [id number] 21:26:00 Test Item Value Reference Range Interpretation Comments U Bruna Scr (test code Negative *NA*(05/26/20 = U Bruna Scr) 4:26 PM) [facility]lakeannDR[facility] [id number] 21:26:00 Test Item Value Reference Range Interpretation Comments U Benzodiaz Scr (test Positive *ABN*(05/26/20 code = U Benzodiaz Scr) 4:26 PM) [facility] [id number] 21:26:00 Test Item Value Reference Range Interpretation Comments U Cocaine Scr (test Negative *NA*(05/26/20 code = U Cocaine Scr) 4:26 PM) [facility]DR[facility] [id number] 21:26:00 Test Item Value Reference Range Interpretation Comments U Cannab Scr (test Negative *NA*(05/26/20 code = U Cannab Scr) 4:26 PM) [facility] [id number] 21:26:00 Test Item Value Reference Range Interpretation Comments U Opiate Scr (test Positive *ABN*(05/26/20 code = U Opiate Scr) 4:26 PM) [facility]lakeannDR[facility] [id number] 21:26:00 Test Item Value Reference Range Interpretation Comments U Phencyclidine Scr (test Negative code = U Phencyclidine *NA*(05/26/20 4:26 Scr) PM) [facility]lakeannDRUG [id number] 21:26:00 Test Item Value Reference Range Interpretation Comments UDS Note (test code = See Note (05/26/20 4:26 UDS Note) PM) [facility] SouthlakeDgjzzfoTFISDQDZPO4880-20-37 21:26:00 Test Item Value Reference Range Interpretation Comments WBC (test code = WBC) 12.1 3.7-10.4 [facility] SouthlakeWzmwjqvTGSQXPZYFO4384-30-95 21:26:00 Test Item Value Reference Range Interpretation Comments RBC (test code = RBC) 3.29 4.20-5.40 [facility] SouthlakeJtpqhhtFJIAOWOTQD5568-58-34 21:26:00 Test Item Value Reference Range Interpretation Comments Hgb (test code = Hgb) 11.1 12.0-16.0 [facility] SouthlakeDvqumzgILRJTQATDO5480-50-25 21:26:00 Test Item Value Reference Range Interpretation Comments Hct (test code = Hct) 32.7 36.0-48.0 [facility] SouthlakeNyqpvfiSQIAZSRSBJ8765-77-90 21:26:00 Test Item Value Reference Range Interpretation Comments MCV (test code = MCV) 99.5 80.0-98.0 [facility] SouthlakePxpnqihATVHZUVQYE7163-85-23 21:26:00 Test Item Value Reference Range Interpretation Comments MCH (test code = MCH) 33.9 pg 27.0-31.0 [facility] SouthlakeDrufthxSPOFVSGFAI9280-90-80 21:26:00 Test Item Value Reference Range Interpretation Comments MCHC (test code = MCHC) 34.1 32.0-36.0 [place] [id number] 21:26:00 Test Item Value Reference Range Interpretation Comments RDW (test code = RDW) 13.1 11.5-14.5 [place] [id number] 21:26:00 Test Item Value Reference Range Interpretation Comments Platelet (test code = Platelet) 320 133-450 [place] 962390-07-24 21:26:00 Test Item Value Reference Range Interpretation Comments MPV (test code = MPV) 7.3 7.4-10.4 [place] 962390-07-24 21:26:00 Test Item Value Reference Range Interpretation Comments Plt Morph (test code = Normal (05/26/20 4:26 Plt Morph) PM) [place] 962390-07-24 21:26:00 Test Item Value Reference Range Interpretation Comments Segs (test code = Segs) 90.0 45.0-75.0 [place] 962390-07-24 21:26:00 Test Item Value Reference Range Interpretation Comments Lymphocytes (test code = Lymphocytes) 4.7 20.0-40.0 [place] 962390-07-24 21:26:00 Test Item Value Reference Range Interpretation Comments Monocytes (test code = Monocytes) 4.9 2.0-12.0 [place] 962390-07-24 21:26:00 Test Item Value Reference Range Interpretation Comments Eosinophils (test code = 0.1 See_Comment [A utomated message] The Eosinophils) system which ge nerated this result tra nsmitted reference range : <=4.0. The reference r pascual was not used to int erpret this result as normal/abnormal . [facility] HospitalSzseoxtMHNPFVVSOP2005-33-40 21:26:00 Test Item Value Reference Range Interpretation Comments Basophils (test code = 0.3 See_Comment [Aut omated message] The Basophils) system which ge nerated this result tra nsmitted reference range : <=1.0. The reference r pascual was not used to int erpret this result as normal/abnormal . [place] 962390-07-24 21:26:00 Test Item Value Reference Range Interpretation Comments Neutrophils # (test code = Neutrophils 10.9 1.5-8.1 #) [place] 962390-07-24 21:26:00 Test Item Value Reference Range Interpretation Comments Lymphocytes # (test code = Lymphocytes 0.6 1.0-5.5 #) [facility]ZqvidjfYXNYXDIQOE2249-71-31 21:26:00 Test Item Value Reference Range Interpretation Comments Monocytes # (test code 0.6 See_Comment [Aut omated message] The = Monocytes #) system which generated this result tra nsmitted reference range : <=0.8. The reference r pascual was not used to int erpret this result as normal/abnormal . [facility] DistrictInpyhdrQZUTUAAIZT4626-81-29 21:26:00 Test Item Value Reference Range Interpretation Comments Macrocyte (test code = 1+ *ABN*(05/26/20 Macrocyte) 4:26 PM) [facility] DistrictSdesxiiWUKXMLOVLB4138-11-78 21:26:00 Test Item Value Reference Range Interpretation Comments Acetaminoph Lvl (test code = 3 10-20 Acetaminoph Lvl) [place] [id number] 21:26:00 Test Item Value Reference Range Interpretation Comments Ethanol Lvl (test code = Ethanol Lvl) 7 [facility] DistrictDachdleDHLBCGQWSC8847-57-23 21:26:00 Test Item Value Reference Range Interpretation Comments Etoh (%) (test code = Etoh (%)) 0.007 [facility]BkjykigYRVUNAPTZX1264-22-18 21:26:00 Test Item Value Reference Range Interpretation Comments Salicylate Lvl (test no gt See_Comment [Autom ated message] The code = Salicylate Lvl) syste m which generated this result tra nsmitted reference range : <=30.0. The reference r pascual was not used to int erpret this result as normal/abnormal . [facility] Premium StoreannCHEM [id number] 21:26:0088[facility]annCHEM PANEL 2020-05-26 21:26:009[facility] HermannCHEM SCAFU5510-66-21 21:26:001.05[facility] HermannCHEM QHDMW6450-78-06 21:26:62672Mbvcaxjl HermannCHEM QHLUQ8890-94-99 21:26:003.5[facility] HermannCHEM TTBGS5566-33-40 21:26:50546Srktdjqm HermannCHEM CRDGC4303-72-88 21:26:0029[facility] HermannCHEM JSRXW1278-90-55 21:26:008.0 [facility]annCHEM ZUKCH4422-12-50 21:26:005.6[facility]annCHEM PANEL 2020-05-26 21:26:002.4[facility] HermannCHEM BAOHE5168-75-22 21:26:0039[facility] HermannCHEM OBDBE8662-06-49 21:26:0061[facility]annCHEM TFPQU8156-58-11 21:26:93525Iyspbkpy HermannCHEM YDSOT1406-44-69 21:26:000.9[facility] HermannCHEM APTVH1733-25-05 21:26:0011.5[facility]annCHEM XCGRH0718-00-71 21:26:00 Test Item Value Reference Range Interpretation Comments B/C Ratio (test code = B/C Ratio) 9 1 6-25 [facility]annCHEM [id number] 21:26:003.2[facility]annCHEM PANEL 2020-05-26 21:26:00 Test Item Value Reference Range Interpretation Comments A/G Ratio (test code = A/G Ratio) 0.8 1 0.7-1.6 [facility]annCHEM [id number] 21:26:0054[facility]annDRUG SCREEN 2020-05-26 21:26:00Negative *NA*(05/26/20 4:26 PM)[facility]annDRUG SCREEN 2020-05-26 21:26:00Negative *NA*(05/26/20 4:26 PM)[facility]annDRUG SCREEN 2020-05-26 21:26:00Positive *ABN*(05/26/20 4:26 PM)[facility]annDRUG SCREEN 2020-05-26 21:26:00Negative *NA*(05/26/20 4:26 PM)[facility]annDRUG SCREEN 2020-05-26 21:26:00Negative *NA*(05/26/20 4:26 PM)[facility]annDRUG SCREEN 2020-05-26 21:26:00Positive *ABN*(05/26/20 4:26 PM)[facility]annDRUG SCREEN 2020-05-26 21:26:00Negative *NA*(05/26/20 4:26 PM)[facility]annDRUG SCREEN 2020-05-26 21:26:00See Note (05/26/20 4:26 PM)[facility]annHEMATOLOGY 2020-05-26 21:26:0012.1[facility] VljuhnkPSNXKBLXTI3528-29-18 21:26:003.29[facility] WzrkeqfBNFMFYIRZD5401-56-52 21:26:0011.1[facility] QgwyjrfGKBNKSLTJC7421-14-44 21:26:0032.7[facility] XgxiyedXIJZHGYDXI3149-87-33 21:26:0099.5[facility] Sushil ZEZGOQXWNA2180-88-61 21:26:00 Test Item Value Reference Range Interpretation Comments MCH (test code = MCH) 33.9 pg 27.0-31.0 [facility] KsjyfefFGKEBULOZW3755-25-12 21:26:0034.1[facility]annHEMATOLOGY 2020-05-26 21:26:0013.1[facility] HdmdarePZCZCGCCJN2509-54-13 21:26:02433Yuyjsfuk NocsvucMGKARSAPRQ8946-58-13 21:26:007.3[facility] KkjogbtMOHOQDTHBC2493-36-34 21:26:00Normal (05/26/20 4:26 PM)[facility] NsjslufQPYLIXQPHN2446-46-81 21:26:00 90.0[facility] RrdokpxPCFPZIRXEB1464-31-34 21:26:004.7[facility]annHEMATOLOGY 2020-05-26 21:26:004.9[facility] SiyikcjHNAYUHJCSL1917-01-94 21:26:000.1[facility] IabijkvBHNTITOSNC4025-52-91 21:26:000.3[facility] MglqbpmLEQKWHEZDG5976-70-09 21:26:0010.9[facility] HcrxtbwLYNDXVCKCL6228-71-90 21:26:000.6[facility] Sushil HCVJPQEJUW4799-37-23 21:26:000.6[facility] CsmncrhSIOBAZCPQP1886-66-50 21:26:001+ *ABN*(05/26/20 4:26 PM)[facility] QpfmdilHWQGPJSTPF7513-63-51 21:26:003[facility] KlgtyxbTKKIVWORYN0899-01-71 21:26:007[facility] QzfhxuyWUFWSFOIXY1225-01-11 21:26:000.007[facility] OhnjdxjGADYBHSJAF5229-19-25 21:26:00<1.7[facility] HermannCHEM BNWGM2661-65-47 21:26:0088[facility] HermannCHEM UFANR5724-44-42 21:26:009[facility] HermannCHEM HDNDL9746-67-85 21:26:001.05[facility] HermannCHEM FTHHX5122-51-33 21:26:40797Prfqqduk HermannCHEM XDDZI9980-94-60 21:26:003.5 [facility]annCHEM OZBCT9717-66-68 21:26:48482Prehjnop HermannCHEM PANEL 2020-05-26 21:26:0029[facility] HermannCHEM JVSYI2796-87-03 21:26:008.0[facility] HermannCHEM KAQPG3124-57-30 21:26:005.6[facility] HermannCHEM MOBZF4547-44-51 21:26:002.4[facility] HermannCHEM FXMGX3802-52-96 21:26:0039[facility] HermannCHEM TPUQY8002-07-03 21:26:0061[facility] HermannCHEM WFOQR1949-80-28 21:26:87767 [facility]annCHEM LECPN8114-88-12 21:26:000.9[facility]annCHEM PANEL 2020-05-26 21:26:0011.5[facility] HermannCHEM VLWOW8203-46-12 21:26:00 Test Item Value Reference Range Interpretation Comments B/C Ratio (test code = B/C Ratio) 9 1 6-25 [facility]annCHEM VBFYS0050-01-03 21:26:003.2[facility]annCHEM PANEL 2020-05-26 21:26:00 Test Item Value Reference Range Interpretation Comments A/G Ratio (test code = A/G Ratio) 0.8 1 0.7-1.6 [facility]annCHEM [id number] 21:26:0054[facility] HermannDRUG SCREEN 2020-05-26 21:26:00Negative *NA*(05/26/20 4:26 PM)[facility]annDRUG SCREEN 2020-05-26 21:26:00Negative *NA*(05/26/20 4:26 PM)[facility]annDRUG SCREEN 2020-05-26 21:26:00Positive *ABN*(05/26/20 4:26 PM)[facility] HermannDRUG SCREEN 2020-05-26 21:26:00Negative *NA*(05/26/20 4:26 PM)[facility] HermannDRUG SCREEN 2020-05-26 21:26:00Negative *NA*(05/26/20 4:26 PM)[facility] HermannDRUG SCREEN 2020-05-26 21:26:00Positive *ABN*(05/26/20 4:26 PM)[facility] HermannDRUG SCREEN 2020-05-26 21:26:00Negative *NA*(05/26/20 4:26 PM)[facility] HermannDRUG SCREEN 2020-05-26 21:26:00See Note (05/26/20 4:26 PM)[facility]annHEMATOLOGY 2020-05-26 21:26:0012.1[facility] VivcdgcQRYJXCWINH5076-72-66 21:26:003.29[facility] NrontipQBEVSOCAGC0309-30-94 21:26:0011.1[facility] KqesmdzVAEYBXFLSR8887-42-45 21:26:0032.7[facility] CnsempgQFTQZKPJPW3349-85-05 21:26:0099.5[facility] Cool ZTWOJCUHFC9001-83-34 21:26:00 Test Item Value Reference Range Interpretation Comments MCH (test code = MCH) 33.9 pg 27.0-31.0 [facility] BzcnexmURMMEEIHPL7561-27-42 21:26:0034.1[facility] HermannHEMATOLOGY 2020-05-26 21:26:0013.1[facility] IqhmnznSVPWSOGXPK3190-14-61 21:26:65480Awufhpib WveoobwKPWLNWWTZP0662-01-67 21:26:007.3[facility] UxzxiuzQCNQFCJEFW0250-61-39 21:26:00Normal (05/26/20 4:26 PM)[facility] VxpaijaEHETVHCKTZ1939-46-29 21:26:00 90.0[facility] TyydafzCDBRYSEWLW1199-01-96 21:26:004.7[facility] HermannHEMATOLOGY 2020-05-26 21:26:004.9[facility] EomuhfcCCLVFCNBID6654-23-50 21:26:000.1[facility] PqbzgfzQJJQEPAGRZ3291-15-42 21:26:000.3[facility] BagamnaXBSAAQYUYO4076-41-16 21:26:0010.9[facility] OopbrwlKTLZDTPWUK8027-47-45 21:26:000.6[facility] Sushil DSDFNJOMUI4024-42-78 21:26:000.6[facility] ZufnmeqQQMUIBLCDA9018-79-55 21:26:001+ *ABN*(05/26/20 4:26 PM)[facility] WnajbxbMPBKFUVYSL5158-05-80 21:26:003[facility] RbczfstKPVRIVDVPW0302-75-58 21:26:007[facility] WfeqqbgQPEIUJIMDC2933-59-69 21:26:000.007[facility] MbdefppWLNQYEDEEO2170-73-03 21:26:00<1.7[facility] HermannCHEM EQDXZ5294-88-53 21:26:0088[facility]annCHEM OUBUW1778-21-61 21:26:009[facility]annCHEM OGXYM8813-23-07 21:26:001.05[facility]annCHEM MPDDW4551-81-46 21:26:90263Qzubhvxt HermannCHEM YCZQK8608-86-36 21:26:003.5 [facility]annCHE[facility] NGIAT1098-57-99 21:26:75490Ijtjfisq HermannCHEM PANEL 2020-05-26 21:26:0029[facility]annCHEM MYMOD7570-38-95 21:26:008.0[facility]annCHEM REBVK1880-51-94 21:26:005.6[facility]annCHEM QEKXW4479-23-35 21:26:002.4[facility]annCHEM MIJMU8603-96-99 21:26:0039[facility]annCHEM DYPZW4915-40-64 21:26:0061[facility]annCHEM OZJRJ6543-48-59 21:26:02901 [facility]annCHE[facility] SLQWL6218-73-50 21:26:000.9[facility]annCHEM PANEL 2020-05-26 21:26:0011.5[facility]annCHEM ZSPQJ9559-79-07 21:26:00 Test Item Value Reference Range Interpretation Comments B/C Ratio (test code = B/C Ratio) 9 1 6-25 [facility]ann[facility] [id number] 21:26:003.2[facility]annCHEM PANEL 2020-05-26 21:26:00 Test Item Value Reference Range Interpretation Comments A/G Ratio (test code = A/G Ratio) 0.8 1 0.7-1.6 [facility]annCHE[facility] FQDRG0771-43-32 21:26:0054[facility] HermannDRUG SCREEN 2020-05-26 21:26:00Negative *NA*(05/26/20 4:26 PM)[facility]annDR[facility] SCREEN 2020-05-26 21:26:00Negative *NA*(05/26/20 4:26 PM)[facility]annDR[facility] SCREEN 2020-05-26 21:26:00Positive *ABN*(05/26/20 4:26 PM)[facility]annDR[facility] SCREEN 2020-05-26 21:26:00Negative *NA*(05/26/20 4:26 PM)[facility]annDR[facility] SCREEN 2020-05-26 21:26:00Negative *NA*(05/26/20 4:26 PM)[facility]annDR[facility] SCREEN 2020-05-26 21:26:00Positive *ABN*(05/26/20 4:26 PM)[facility]annDR[facility] SCREEN 2020-05-26 21:26:00Negative *NA*(05/26/20 4:26 PM)[facility]annDRUG SCREEN 2020-05-26 21:26:00See Note (05/26/20 4:26 PM)[facility]annHEMATOLOGY 2020-05-26 21:26:0012.1[facility] BwshjddKNIXSDBTXG2976-80-11 21:26:003.29[facility] LjwenlzAMMAVBZQIF1169-66-81 21:26:0011.1[facility] DrbtyclINYICNITUE2509-51-15 21:26:0032.7[facility] FeixodaLIHDNGZODG0791-11-93 21:26:0099.5[facility] Cool EBXNYDFXRB4875-90-70 21:26:00 Test Item Value Reference Range Interpretation Comments MCH (test code = MCH) 33.9 pg 27.0-31.0 [facility] UojnwidFYYDZQVFRZ1877-56-03 21:26:0034.1[facility] HermannHEMATOLOGY 2020-05-26 21:26:0013.1[facility] QjaresxJTPITNDPDF9182-91-24 21:26:17854Tcactkvx NwcdqjvJOPSJLMZNP5310-01-12 21:26:007.3[facility] EgmhfkgZFVCGIKIBZ1997-49-67 21:26:00Normal (05/26/20 4:26 PM)[facility] DctoknnCBMCEJGUFT9262-29-63 21:26:00 90.0[facility] OatacohZTTBZKVXSY7963-37-74 21:26:004.7[facility] HermannHEMATOLOGY 2020-05-26 21:26:004.9[facility] OlonnwaMEJQLXAVSE1056-74-50 21:26:000.1[facility] FihgzvnIFIEZXHVVH7846-13-54 21:26:000.3[facility] DjfmlxnHSUIAPWGLJ2768-16-60 21:26:0010.9[facility] DlxmnvgODREYFNGFL9459-09-32 21:26:000.6[facility] Cool SYOMDNOQMV4180-81-78 21:26:000.6[facility] CiusdgyVKPYEENTDQ9157-37-33 21:26:001+ *ABN*(05/26/20 4:26 PM)[facility] LmouvdgRCWYYUAZZQ5844-57-32 21:26:003[facility] JiwpsnxRXIJKZKIQA6686-29-41 21:26:007[facility] BaevmfqWHIEOVZKEV6162-95-20 21:26:000.007[facility] EnyakzsGCCGNGUFKT8661-68-76 21:26:00<1.7[facility] HermannCHEM BMXKZ6217-75-92 21:26:00 Test Item Value Reference Range Interpretation Comments Glucose Lvl (test code = Glucose Lvl) 88 70-99 [place] 567530-07-24 21:26:00 Test Item Value Reference Range Interpretation Comments BUN (test code = BUN) 9 7-22 [place] 567530-07-24 21:26:00 Test Item Value Reference Range Interpretation Comments Creatinine Lvl (test code = Creatinine 1.05 0.50-1.40 Lvl) [place] 567530-07-24 21:26:00 Test Item Value Reference Range Interpretation Comments Sodium Lvl (test code = Sodium Lvl) 140 135-145 [place] 567530-07-24 21:26:00 Test Item Value Reference Range Interpretation Comments Potassium Lvl (test code = Potassium 3.5 3.5-5.1 Lvl) [place] 567530-07-24 21:26:00 Test Item Value Reference Range Interpretation Comments Chloride Lvl (test code = Chloride Lvl) 103 95-109 [place] 567530-07-24 21:26:00 Test Item Value Reference Range Interpretation Comments CO2 (test code = CO2) 29 24-32 [place] 567530-07-24 21:26:00 Test Item Value Reference Range Interpretation Comments Calcium Lvl (test code = Calcium Lvl) 8.0 8.5-10.5 [place] 567530-07-24 21:26:00 Test Item Value Reference Range Interpretation Comments Total Protein (test code = Total 5.6 6.4-8.4 Protein) [place] 567530-07-24 21:26:00 Test Item Value Reference Range Interpretation Comments Albumin Lvl (test code = Albumin Lvl) 2.4 3.5-5.0 [place] 567530-07-24 21:26:00 Test Item Value Reference Range Interpretation Comments ALT (test code = ALT) 39 See_Comment [Auto mated message] The system which ge nerated this result transmit tracy reference range : <=65. The reference range was not used to interpr et this result as ramón l/abnormal. [facility] DistrictSlic[facility] Apples [id number] 21:26:00 Test Item Value Reference Range Interpretation Comments AST (test code = AST) 61 See_Comment [Auto mated message] The system which ge nerated this result transmit tracy reference range : <=37. The reference range was not used to interpr et this result as ramón l/abnormal. [facility] [employer] GRAMJ7877-04-20 21:26:00 Test Item Value Reference Range Interpretation Comments Alk Phos (test code = Alk Phos) 110 39-136 [facility] [employer] GQXYC3061-84-52 21:26:00 Test Item Value Reference Range Interpretation Comments Bili Total (test code = Bili Total) 0.9 0.2-1.3 [facility] [employer] RTPSV6529-56-33 21:26:00 Test Item Value Reference Range Interpretation Comments AGAP (test code = AGAP) 11.5 10.0-20.0 [facility] [employer] [id number] 21:26:00 Test Item Value Reference Range Interpretation Comments B/C Ratio (test code = B/C Ratio) 9 1 6-25 [facility] [id number] 21:26:00 Test Item Value Reference Range Interpretation Comments Globulin (test code = Globulin) 3.2 2.7-4.2 [facility] [employer] IMJET9815-81-76 21:26:00 Test Item Value Reference Range Interpretation Comments A/G Ratio (test code = A/G Ratio) 0.8 1 0.7-1.6 [facility] [employer] NSCKD7507-49-37 21:26:00 Test Item Value Reference Range Interpretation Comments eGFR (test code = eGFR) 54 [facility] ZCTHBT1105-39-16 21:26:00 Test Item Value Reference Range Interpretation Comments U Amph Scr (test code Negative *NA*(05/26/20 = U Amph Scr) 4:26 PM) [facility] [employer] StoreannDRUG DGOIFL1188-06-84 21:26:00 Test Item Value Reference Range Interpretation Comments U Bruna Scr (test code Negative *NA*(05/26/20 = U Bruna Scr) 4:26 PM) [facility] [id number] 21:26:00 Test Item Value Reference Range Interpretation Comments U Benzodiaz Scr (test Positive *ABN*(05/26/20 code = U Benzodiaz Scr) 4:26 PM) [facility] NQCZFB3565-94-72 21:26:00 Test Item Value Reference Range Interpretation Comments U Cocaine Scr (test Negative *NA*(05/26/20 code = U Cocaine Scr) 4:26 PM) [facility] XCWSLV8477-30-27 21:26:00 Test Item Value Reference Range Interpretation Comments U Cannab Scr (test Negative *NA*(05/26/20 code = U Cannab Scr) 4:26 PM) [facility] MHOVVF4729-58-10 21:26:00 Test Item Value Reference Range Interpretation Comments U Opiate Scr (test Positive *ABN*(05/26/20 code = U Opiate Scr) 4:26 PM) [facility] [id number] 21:26:00 Test Item Value Reference Range Interpretation Comments U Phencyclidine Scr (test Negative code = U Phencyclidine *NA*(05/26/20 4:26 Scr) PM) [facility] OEPEUY3609-33-18 21:26:00 Test Item Value Reference Range Interpretation Comments UDS Note (test code = See Note (05/26/20 4:26 UDS Note) PM) [facility]lakeJmbvmozFZDDWXEOZP9685-77-20 21:26:00 Test Item Value Reference Range Interpretation Comments WBC (test code = WBC) 12.1 3.7-10.4 [facility] SouthlakeDstokhySGTHZWXGXW0580-43-05 21:26:00 Test Item Value Reference Range Interpretation Comments RBC (test code = RBC) 3.29 4.20-5.40 [facility] SouthlakeKzzfjiwQZAGPFJGMQ1540-10-87 21:26:00 Test Item Value Reference Range Interpretation Comments Hgb (test code = Hgb) 11.1 12.0-16.0 [facility] SouthlakeLnabaubCXIEUEXXRA2068-59-83 21:26:00 Test Item Value Reference Range Interpretation Comments Hct (test code = Hct) 32.7 36.0-48.0 [facility] SouthlakeAoavqhlLFHGMYAAFN7887-69-34 21:26:00 Test Item Value Reference Range Interpretation Comments MCV (test code = MCV) 99.5 80.0-98.0 [facility] SouthlakeAjubrjxIBBWGKQYSB9551-47-00 21:26:00 Test Item Value Reference Range Interpretation Comments MCH (test code = MCH) 33.9 pg 27.0-31.0 [facility] SouthlakeSdfldceUDOPQKWJQI5115-66-90 21:26:00 Test Item Value Reference Range Interpretation Comments MCHC (test code = MCHC) 34.1 32.0-36.0 [facility]QthvtaoFJMWTFECYI0553-48-27 21:26:00 Test Item Value Reference Range Interpretation Comments RDW (test code = RDW) 13.1 11.5-14.5 [place] [id number] 21:26:00 Test Item Value Reference Range Interpretation Comments Platelet (test code = Platelet) 320 133-450 [facility] HospitalIrgaofdRGBNYADODU8767-95-64 21:26:00 Test Item Value Reference Range Interpretation Comments MPV (test code = MPV) 7.3 7.4-10.4 [facility] HospitalNskhklqLTNOGDUDTL5938-36-81 21:26:00 Test Item Value Reference Range Interpretation Comments Plt Morph (test code = Normal (05/26/20 4:26 Plt Morph) PM) [facility] HospitalUokszqbGAFBTCXQVD6204-77-73 21:26:00 Test Item Value Reference Range Interpretation Comments Segs (test code = Segs) 90.0 45.0-75.0 [facility] HospitalHlsonzqKEFERVNMQU9616-22-02 21:26:00 Test Item Value Reference Range Interpretation Comments Lymphocytes (test code = Lymphocytes) 4.7 20.0-40.0 [facility] HospitalMopgyziKCQQMHXNVN5380-34-05 21:26:00 Test Item Value Reference Range Interpretation Comments Monocytes (test code = Monocytes) 4.9 2.0-12.0 [facility]2020-07-24 21:26:00 Test Item Value Reference Range Interpretation Comments Bili Total (test code = Bili Total) 0.9 0.2-1.3 [facility]2020-07-24 21:26:00 Test Item Value Reference Range Interpretation Comments AGAP (test code = AGAP) 11.5 10.0-20.0 [facility] [id number] 21:26:00 Test Item Value Reference Range Interpretation Comments B/C Ratio (test code = B/C Ratio) 9 1 6-25 [facility]2020-07-24 21:26:00 Test Item Value Reference Range Interpretation Comments Bili Total (test code = Bili Total) 0.9 0.2-1.3 [facility] [id number] 21:26:00 Test Item Value Reference Range Interpretation Comments Globulin (test code = Globulin) 3.2 2.7-4.2 [facility] StoreannCHEM [id number] 21:26:00 Test Item Value Reference Range Interpretation Comments A/G Ratio (test code = A/G Ratio) 0.8 1 0.7-1.6 [facility] StoreannCHEM [id number] 21:26:00 Test Item Value Reference Range Interpretation Comments AGAP (test code = AGAP) 11.5 10.0-20.0 [facility] Premium StoreannCHEM [id number] 21:26:00 Test Item Value Reference Range Interpretation Comments eGFR (test code = eGFR) 54 [facility] [employer] StoreannS[employer] [id number] 21:26:00 Test Item Value Reference Range Interpretation Comments B/C Ratio (test code = B/C Ratio) 9 1 6-25 [facility] StoreannDRUG [id number] 21:26:00 Test Item Value Reference Range Interpretation Comments U Amph Scr (test code Negative *NA*(05/26/20 = U Amph Scr) 4:26 PM) [facility] [employer] [id number] 21:26:00 Test Item Value Reference Range Interpretation Comments Globulin (test code = Globulin) 3.2 2.7-4.2 [facility] StoreannDRUG [id number] 21:26:00 Test Item Value Reference Range Interpretation Comments U Bruna Scr (test code Negative *NA*(05/26/20 = U Bruna Scr) 4:26 PM) [facility] [employer] [id number] 21:26:00 Test Item Value Reference Range Interpretation Comments A/G Ratio (test code = A/G Ratio) 0.8 1 0.7-1.6 [facility] StoreannDRUG [id number] 21:26:00 Test Item Value Reference Range Interpretation Comments U Benzodiaz Scr (test Positive *ABN*(05/26/20 code = U Benzodiaz Scr) 4:26 PM) [facility] [employer] [id number] 21:26:00 Test Item Value Reference Range Interpretation Comments eGFR (test code = eGFR) 54 [facility] [employer]) [id number] 21:26:00 Test Item Value Reference Range Interpretation Comments U Cocaine Scr (test Negative *NA*(05/26/20 code = U Cocaine Scr) 4:26 PM) [facility] HermannDRUG [id number] 21:26:00 Test Item Value Reference Range Interpretation Comments U Amph Scr (test code Negative *NA*(05/26/20 = U Amph Scr) 4:26 PM) [facility] [id number] 21:26:00 Test Item Value Reference Range Interpretation Comments U Cannab Scr (test Negative *NA*(05/26/20 code = U Cannab Scr) 4:26 PM) [facility]annDR[facility] [id number] 21:26:00 Test Item Value Reference Range Interpretation Comments U Bruna Scr (test code Negative *NA*(05/26/20 = U Bruna Scr) 4:26 PM) [facility]annDR[facility] [id number] 21:26:00 Test Item Value Reference Range Interpretation Comments U Opiate Scr (test Positive *ABN*(05/26/20 code = U Opiate Scr) 4:26 PM) [facility]annDR[facility] [id number] 21:26:00 Test Item Value Reference Range Interpretation Comments U Benzodiaz Scr (test Positive *ABN*(05/26/20 code = U Benzodiaz Scr) 4:26 PM) [facility]annDR[facility] [id number] 21:26:00 Test Item Value Reference Range Interpretation Comments U Phencyclidine Scr (test Negative code = U Phencyclidine *NA*(05/26/20 4:26 Scr) PM) [facility]DR[facility] [id number] 21:26:00 Test Item Value Reference Range Interpretation Comments U Cocaine Scr (test Negative *NA*(05/26/20 code = U Cocaine Scr) 4:26 PM) [facility]annDR[facility] [id number] 21:26:00 Test Item Value Reference Range Interpretation Comments UDS Note (test code = See Note (05/26/20 4:26 UDS Note) PM) [facility]annDR[facility] [id number] 21:26:00 Test Item Value Reference Range Interpretation Comments U Cannab Scr (test Negative *NA*(05/26/20 code = U Cannab Scr) 4:26 PM) [facility] EsqrokrAVXBREEWRU7508-17-12 21:26:00 Test Item Value Reference Range Interpretation Comments WBC (test code = WBC) 12.1 3.7-10.4 [facility]DR[facility] [id number] 21:26:00 Test Item Value Reference Range Interpretation Comments U Opiate Scr (test Positive *ABN*(05/26/20 code = U Opiate Scr) 4:26 PM) [facility] HhmnpnaHFJIRSUYLB2592-69-76 21:26:00 Test Item Value Reference Range Interpretation Comments RBC (test code = RBC) 3.29 4.20-5.40 [facility]annDR[facility] [id number] 21:26:00 Test Item Value Reference Range Interpretation Comments U Phencyclidine Scr (test Negative code = U Phencyclidine *NA*(05/26/20 4:26 Scr) PM) [facility] AdwwfhqUPEAUGGDLU3300-11-14 21:26:00 Test Item Value Reference Range Interpretation Comments Hgb (test code = Hgb) 11.1 12.0-16.0 [facility]annDR[facility] [id number] 21:26:00 Test Item Value Reference Range Interpretation Comments UDS Note (test code = See Note (05/26/20 4:26 UDS Note) PM) [facility]lakeAwuvpvzJDRRAQMUSH4805-42-15 21:26:00 Test Item Value Reference Range Interpretation Comments Hct (test code = Hct) 32.7 36.0-48.0 [facility] XnwyxnqEBZZKJVZAP7369-50-35 21:26:00 Test Item Value Reference Range Interpretation Comments WBC (test code = WBC) 12.1 3.7-10.4 [facility] UbjsfbzRTSBNZFWGJ6477-08-22 21:26:00 Test Item Value Reference Range Interpretation Comments MCV (test code = MCV) 99.5 80.0-98.0 [facility] SouthlakeEakyvueGZZSPYKFUL5151-35-97 21:26:00 Test Item Value Reference Range Interpretation Comments RBC (test code = RBC) 3.29 4.20-5.40 [facility] PfdgsxnQCKIFKNMDR5718-66-94 21:26:00 Test Item Value Reference Range Interpretation Comments MCH (test code = MCH) 33.9 pg 27.0-31.0 [facility] SfkzmudLUUOBNVXYF9103-17-59 21:26:00 Test Item Value Reference Range Interpretation Comments Hgb (test code = Hgb) 11.1 12.0-16.0 [facility] FtpabbuNVJZQMEVVC8731-07-19 21:26:00 Test Item Value Reference Range Interpretation Comments MCHC (test code = MCHC) 34.1 32.0-36.0 [facility] ZsmhlncRZYKTCQEHS7308-53-34 21:26:00 Test Item Value Reference Range Interpretation Comments Hct (test code = Hct) 32.7 36.0-48.0 [place] [id number] 21:26:00 Test Item Value Reference Range Interpretation Comments RDW (test code = RDW) 13.1 11.5-14.5 [facility] HospitalGnqntikDWSPTOAZZJ2354-46-51 21:26:00 Test Item Value Reference Range Interpretation Comments MCV (test code = MCV) 99.5 80.0-98.0 [facility] HospitalTquuvorUUBFZSOKRZ3406-27-95 21:26:00 Test Item Value Reference Range Interpretation Comments Platelet (test code = Platelet) 320 133-450 [facility] HospitalWohzjauGJKQHYPTGK9308-23-70 21:26:00 Test Item Value Reference Range Interpretation Comments MCH (test code = MCH) 33.9 pg 27.0-31.0 [place] 962390-07-24 21:26:00 Test Item Value Reference Range Interpretation Comments MPV (test code = MPV) 7.3 7.4-10.4 [facility] HospitalXkptxwuKZMALYGYZV1576-51-57 21:26:00 Test Item Value Reference Range Interpretation Comments MCHC (test code = MCHC) 34.1 32.0-36.0 [facility] HospitalIdrfxfbBMEHXNCMKP7209-73-72 21:26:00 Test Item Value Reference Range Interpretation Comments Plt Morph (test code = Normal (05/26/20 4:26 Plt Morph) PM) [facility] HospitalPsobouePYODZSYHLV7673-07-60 21:26:00 Test Item Value Reference Range Interpretation Comments RDW (test code = RDW) 13.1 11.5-14.5 [facility] HospitalFrbpdulOTQBJMKGFT3123-17-97 21:26:00 Test Item Value Reference Range Interpretation Comments Segs (test code = Segs) 90.0 45.0-75.0 [place] 962390-07-24 21:26:00 Test Item Value Reference Range Interpretation Comments Platelet (test code = Platelet) 320 133-450 [facility] HospitalNrnhmmqYRCXMUNMIF9806-26-92 21:26:00 Test Item Value Reference Range Interpretation Comments Lymphocytes (test code = Lymphocytes) 4.7 20.0-40.0 [facility] HospitalAewbkeuEZDTCSMEKU5904-84-30 21:26:00 Test Item Value Reference Range Interpretation Comments MPV (test code = MPV) 7.3 7.4-10.4 [place] [id number] 21:26:00 Test Item Value Reference Range Interpretation Comments Monocytes (test code = Monocytes) 4.9 2.0-12.0 [place] 962390-07-24 21:26:00 Test Item Value Reference Range Interpretation Comments Plt Morph (test code = Normal (05/26/20 4:26 Plt Morph) PM) [facility] HospitalGlofacdMRUBHTYAKM5471-42-76 21:26:00 Test Item Value Reference Range Interpretation Comments Eosinophils (test code = 0.1 See_Comment [A utomated message] The Eosinophils) system which ge nerated this result tra nsmitted reference range : <=4.0. The reference r pascual was not used to int erpret this result as normal/abnormal . [facility] HospitalGaamwihQHZBNSSJTO6786-73-64 21:26:00 Test Item Value Reference Range Interpretation Comments Segs (test code = Segs) 90.0 45.0-75.0 [place] 962390-07-24 21:26:00 Test Item Value Reference Range Interpretation Comments Basophils (test code = 0.3 See_Comment [Aut omated message] The Basophils) system which ge nerated this result tra nsmitted reference range : <=1.0. The reference r pascual was not used to int erpret this result as normal/abnormal . [facility] HospitalZsxfapzDMOVQCHMWL8909-02-24 21:26:00 Test Item Value Reference Range Interpretation Comments Lymphocytes (test code = Lymphocytes) 4.7 20.0-40.0 [place] 962390-07-24 21:26:00 Test Item Value Reference Range Interpretation Comments Neutrophils # (test code = Neutrophils 10.9 1.5-8.1 #) [facility] HospitalLhzusuqCVDBEOADVH8143-91-06 21:26:00 Test Item Value Reference Range Interpretation Comments Monocytes (test code = Monocytes) 4.9 2.0-12.0 [facility] HospitalWnnpjkqTDMNFCMMDM1892-84-31 21:26:00 Test Item Value Reference Range Interpretation Comments Lymphocytes # (test code = Lymphocytes 0.6 1.0-5.5 #) [facility] HospitalXvanljpDHRLXLKXCF6772-81-23 21:26:00 Test Item Value Reference Range Interpretation Comments Eosinophils (test code = 0.1 See_Comment [A utomated message] The Eosinophils) system which ge nerated this result tra nsmitted reference range : <=4.0. The reference r pascual was not used to int erpret this result as normal/abnormal . [facility] HospitalCeyoklnFGJDQOJGFF6699-13-71 21:26:00 Test Item Value Reference Range Interpretation Comments Monocytes # (test code 0.6 See_Comment [Aut omated message] The = Monocytes #) system which generated this result tra nsmitted reference range : <=0.8. The reference r pascual was not used to int erpret this result as normal/abnormal . [facility] HospitalIfynfaqABFYWYRPTH4377-99-10 21:26:00 Test Item Value Reference Range Interpretation Comments Basophils (test code = 0.3 See_Comment [Aut omated message] The Basophils) system which ge nerated this result tra nsmitted reference range : <=1.0. The reference r pascual was not used to int erpret this result as normal/abnormal . [facility] HospitalLtpdirrZENEFLWWFP4695-16-93 21:26:00 Test Item Value Reference Range Interpretation Comments Macrocyte (test code = 1+ *ABN*(05/26/20 Macrocyte) 4:26 PM) [facility] HospitalQgvutxtRUBBGVVOOH8535-23-31 21:26:00 Test Item Value Reference Range Interpretation Comments Neutrophils # (test code = Neutrophils 10.9 1.5-8.1 #) [place] [id number] 21:26:00 Test Item Value Reference Range Interpretation Comments Acetaminoph Lvl (test code = 3 10-20 Acetaminoph Lvl) [facility] HospitalJtfqfmrXQXHYYMPTL2696-02-82 21:26:00 Test Item Value Reference Range Interpretation Comments Lymphocytes # (test code = Lymphocytes 0.6 1.0-5.5 #) [place] [id number] 21:26:00 Test Item Value Reference Range Interpretation Comments Ethanol Lvl (test code = Ethanol Lvl) 7 [facility] HospitalXrffdiuJXVGGGGLUZ0717-53-16 21:26:00 Test Item Value Reference Range Interpretation Comments Monocytes # (test code 0.6 See_Comment [Aut omated message] The = Monocytes #) system which generated this result tra nsmitted reference range : <=0.8. The reference r pascual was not used to int erpret this result as normal/abnormal . [place] [id number] 21:26:00 Test Item Value Reference Range Interpretation Comments Etoh (%) (test code = Etoh (%)) 0.007 [facility] HospitalRopandvRYNREKSJQV9656-29-01 21:26:00 Test Item Value Reference Range Interpretation Comments Macrocyte (test code = 1+ *ABN*(05/26/20 Macrocyte) 4:26 PM) [place] [id number] 21:26:00 Test Item Value Reference Range Interpretation Comments Salicylate Lvl (test no gt See_Comment [Autom ated message] The code = Salicylate Lvl) syste m which generated this result tra nsmitted reference range : <=30.0. The reference r pascual was not used to int erpret this result as normal/abnormal . [place] [id number] 21:26:00 Test Item Value Reference Range Interpretation Comments Acetaminoph Lvl (test code = 3 10-20 Acetaminoph Lvl) [facility]2020-07-24 21:26:00 Test Item Value Reference Range Interpretation Comments Glucose Lvl (test code = Glucose Lvl) 88 70-99 [place] [id number] 21:26:00 Test Item Value Reference Range Interpretation Comments Ethanol Lvl (test code = Ethanol Lvl) 7 [facility]2020-07-24 21:26:00 Test Item Value Reference Range Interpretation Comments BUN (test code = BUN) 9 -22 [place] [id number] 21:26:00 Test Item Value Reference Range Interpretation Comments Etoh (%) (test code = Etoh (%)) 0.007 [place] [id number] 21:26:00 Test Item Value Reference Range Interpretation Comments Creatinine Lvl (test code = Creatinine 1.05 0.50-1.40 Lvl) [place] [id number] 21:26:00 Test Item Value Reference Range Interpretation Comments Salicylate Lvl (test no gt See_Comment [Autom ated message] The code = Salicylate Lvl) syste m which generated this result tra nsmitted reference range : <=30.0. The reference r pascual was not used to int erpret this result as normal/abnormal . [facility] [id number] 21:26:00 Test Item Value Reference Range Interpretation Comments Sodium Lvl (test code = Sodium Lvl) 140 135-145 [facility]CranewareIRED[id number] 21:26:00 Test Item Value Reference Range Interpretation Comments Glucose Lvl (test code = Glucose Lvl) 88 70-99 [facility] [id number] 21:26:00 Test Item Value Reference Range Interpretation Comments Potassium Lvl (test code = Potassium 3.5 3.5-5.1 Lvl) [facility] [id number] 21:26:00 Test Item Value Reference Range Interpretation Comments BUN (test code = BUN) 9 7-22 [facility] [id number] 21:26:00 Test Item Value Reference Range Interpretation Comments Chloride Lvl (test code = Chloride Lvl) 103 95-109 [facility] [id number] 21:26:00 Test Item Value Reference Range Interpretation Comments Creatinine Lvl (test code = Creatinine 1.05 0.50-1.40 Lvl) [facility] [id number] 21:26:00 Test Item Value Reference Range Interpretation Comments CO2 (test code = CO2) 29 24-32 [facility] [id number] 21:26:00 Test Item Value Reference Range Interpretation Comments Sodium Lvl (test code = Sodium Lvl) 140 135-145 [facility] [id number] 21:26:00 Test Item Value Reference Range Interpretation Comments Calcium Lvl (test code = Calcium Lvl) 8.0 8.5-10.5 [facility] [id number] 21:26:00 Test Item Value Reference Range Interpretation Comments Potassium Lvl (test code = Potassium 3.5 3.5-5.1 Lvl) [facility] [id number] 21:26:00 Test Item Value Reference Range Interpretation Comments Total Protein (test code = Total 5.6 6.4-8.4 Protein) [facility] [id number] 21:26:00 Test Item Value Reference Range Interpretation Comments Chloride Lvl (test code = Chloride Lvl) 103 95-109 [facility] [id number] 21:26:00 Test Item Value Reference Range Interpretation Comments Albumin Lvl (test code = Albumin Lvl) 2.4 3.5-5.0 [facility] [id number] 21:26:00 Test Item Value Reference Range Interpretation Comments CO2 (test code = CO2) 29 24-32 [facility] [id number] 21:26:00 Test Item Value Reference Range Interpretation Comments ALT (test code = ALT) 39 See_Comment [Auto mated message] The system which ge nerated this result transmit tracy reference range : <=65. The reference range was not used to interpr et this result as ramón l/abnormal. [facility] [id number] 21:26:00 Test Item Value Reference Range Interpretation Comments Calcium Lvl (test code = Calcium Lvl) 8.0 8.5-10.5 [facility] [id number] 21:26:00 Test Item Value Reference Range Interpretation Comments AST (test code = AST) 61 See_Comment [Auto mated message] The system which ge nerated this result transmit tracy reference range : <=37. The reference range was not used to interpr et this result as ramón l/abnormal. [facility] [id number] 21:26:00 Test Item Value Reference Range Interpretation Comments Total Protein (test code = Total 5.6 6.4-8.4 Protein) [facility] [id number] 21:26:00 Test Item Value Reference Range Interpretation Comments Alk Phos (test code = Alk Phos) 110 39-136 [facility] [id number] 21:26:00 Test Item Value Reference Range Interpretation Comments Albumin Lvl (test code = Albumin Lvl) 2.4 3.5-5.0 [facility] [id number] 21:26:00 Test Item Value Reference Range Interpretation Comments ALT (test code = ALT) 39 See_Comment [Auto mated message] The system which ge nerated this result transmit tracy reference range : <=65. The reference range was not used to interpr et this result as ramón l/abnormal. [facility] [employer] [id number] 21:26:00 Test Item Value Reference Range Interpretation Comments AST (test code = AST) 61 See_Comment [Auto mated message] The system which ge nerated this result transmit tracy reference range : <=37. The reference range was not used to interpr et this result as ramón l/abnormal. [facility] [id number] 21:26:00 Test Item Value Reference Range Interpretation Comments Alk Phos (test code = Alk Phos) 110 39-136 [facility] [id number] 21:26:0088[facility]annCHE[facility] PANEL 2020-05-26 21:26:009[facility] [id number] 21:26:001.05[facility] [id number] 21:26:87388Ykkovujy HermannCHEM [id number] 21:26:003.5[facility] [id number] 21:26:09066Egwtxqcf [facility]CHE[facility] [id number] 21:26:0029[facility] [id number] 21:26:008.0 [facility] [id number] 21:26:005.6[facility] PANEL 2020-05-26 21:26:002.4[facility] [id number] 21:26:0039[facility] [id number] 21:26:0061[facility] [id number] 21:26:99963Nkdugsln HermannCHEM [id number] 21:26:000.9[facility] [id number] 21:26:0011.5[facility] [id number] 21:26:00 Test Item Value Reference Range Interpretation Comments B/C Ratio (test code = B/C Ratio) 9 1 6-25 [facility] [id number] 21:26:003.2[facility] PANEL 2020-05-26 21:26:00 Test Item Value Reference Range Interpretation Comments A/G Ratio (test code = A/G Ratio) 0.8 1 0.7-1.6 [facility] [id number] 21:26:0054[facility]DR[facility] SCREEN 2020-05-26 21:26:00Negative *NA*(05/26/20 4:26 PM)[facility] 2020-05-26 21:26:00Negative *NA*(05/26/20 4:26 PM)[facility] 2020-05-26 21:26:00Positive *ABN*(05/26/20 4:26 PM)[facility] 2020-05-26 21:26:00Negative *NA*(05/26/20 4:26 PM)[facility] 2020-05-26 21:26:00Negative *NA*(05/26/20 4:26 PM)[facility] 2020-05-26 21:26:00Positive *ABN*(05/26/20 4:26 PM)[facility] 2020-05-26 21:26:00Negative *NA*(05/26/20 4:26 PM)[facility] 2020-05-26 21:26:00See Note (05/26/20 4:26 PM)[facility]ann[facility]MATOLOGY 2020-05-26 21:26:0012.1[facility] [id number] 21:26:003.29[facility] JkgtjwmRCKMCJTSCE2706-76-56 21:26:0011.1[facility] LeuhzpiRZPJRBJHDX3079-68-10 21:26:0032.7[facility] BgirehwIOXLDVXJOY7860-17-13 21:26:0099.5[facility] Sushil [id number] 21:26:00 Test Item Value Reference Range Interpretation Comments MCH (test code = MCH) 33.9 pg 27.0-31.0 [facility] [id number] 21:26:0034.1[facility]annHEMATOLOGY 2020-05-26 21:26:0013.1[facility] [id number] 21:26:07303Mqgffhmd EtasgifDSGRESMUFD5663-26-98 21:26:007.3[facility] QrztevtAEFPQBFYJL7762-02-68 21:26:00Normal (05/26/20 4:26 PM)[facility] FkzsoybIRZGQIMCZF8937-56-23 21:26:00 90.0[facility] [id number] 21:26:004.7[facility]annHEMATOLOGY 2020-05-26 21:26:004.9[facility] WxbsfimJMHSYCPRPJ9415-05-18 21:26:000.1[facility] IbcfxdsRSBRJFKXPU2873-20-65 21:26:000.3[facility] UmzqypiVQRZOIOPWY0425-69-45 21:26:0010.9[facility] UjmijrhFBFOXACTFB2932-40-77 21:26:000.6[facility] Cool OLNQKMMXJP2566-48-28 21:26:000.6[facility] [id number] 21:26:001+ *ABN*(05/26/20 4:26 PM)[facility] EbewgcvZOPWNIHWIF6315-33-43 21:26:003[facility] [id number] 21:26:007[facility] HhvdwsxUEVNAWEFOD1923-43-52 21:26:000.007[facility] YgzwrstZNSZNKRYNM2822-03-88 21:26:00<1.7[facility] HermannTISSUE [id number] 18:05:00Surgical Pathology Report Case: [id number] Authorizing Provider: Saurabh Gomez MD Collected: 07/13/2019 1152 Ordering Location: [address] Received: 07/14/2019 0806 Service Pathologist: Sofía Gore MD Specimens: A) - Duodenum, Random Duodenum Bx B) - Biopsy, Gastric, random gastric body antrum biopsy C) - Biopsy, Mid-esophagus, mid esophagus biopsy A. DUODENUM, BIOPSY: - NO SIGNIFICANT PATHOLOGICAL ABNORMALITYB. STOMACH, BODY AND ANTRUM, RANDOM BIOPSY: - MILD CHRONIC GASTRITIS WITH REACTIVE CHANGE - NO HELICOBACTER PYLORI MICROORGANISM IDENTIFIED C. MID ESOPHAGUS, BIOPSY: - ACUTE ULCERATIVE ESOPHAGITIS - GMS STAIN NEGATIVE FOR FUNGAL ORGANISMS - DETACHED PIECE OF CARDIAC MUCOSA WITH MILD REACTIVE CHANGECC/pl Signing Pathologist Direct Phone Line: [phone] signed bySofía Gore MD on 07/16/2019 at 6:05 [id number] [phone]; [phone] and postop diagnosis: anemiaA. Random duodenum biopsy; B. Random gastric body antrum biopsy; C. Mid esophagus biopsyThe case is received in formalin in three containers each labeled with the patient's name and accession number.Part A labeled "duodenum" are two irregular do soft tissue fragments each measuring 0.3 cm which are submitted in toto in A1. Part B labeled "biopsy, gastric" are three irregular do soft tissue fragments ranging 0.1-0.3 cm which are submitted in toto in toto in B1. Part C labeled "biopsy, mid esophagus" are multiple white soft tissue fragments ranging 0.1-0.3 cm which are submitted in toto in C1. CG/pl A. The duodenum biopsy consists of two pieces of small bowel mucosa with intact villous architecture and the lamina propria content. No viral cytopathic change, granuloma, metaplasia or dysplasia is present. B. The stomach body and antrum biopsies consist of two pieces of oxyntic mucosa and one piece of antral mucosa with mild lymphoplasmacytic infiltrate in the lamina propria. No acute inflammation, intestinal metaplasia, dysplasia is present. No Helicobacter pylori microorganism is identified by Warthin-starry stain. C. The mid esophagus biopsy consists of multiple pieces of squamous mucosa, one detached piece of inflammed granulation tissue with fibrinopurulent exudate, consistent with ulcer. The GMS stainis negative for fungal organisms in the ulcer. There is detached piece of cardiac/oxyntic mucosa with mild reactive change. No dysplasia is seen. The interpretation of this case included the use of immu nohistochemistry or special stains.Control Slides Examined: In-house known positive controls were evaluated along with the test tissue. These control slides run alongside of the patients sample show appropriate staining. Internal positive and negative controls when available are evaluated Immunohistochemistry technical testing was performed at [facility], Pathology Laboratory where it was developed and its performance characteristics were determined. It has not been cleared or approved by the U.S. Food and Drug Administration. The FDA has determined that such clearance or approval is not necessary. The test is used for clinical purposes. It should not be regarded as investigational or for research. This laboratory is certified under the Clinical Laboratory Improvement Amendments of 1988 (CLIA-88) as qualified to perform high complexity clinical laboratory testing.[id number] 06:45:00 Test Item Value Reference Range Interpretation Comments MAGNESIUM (BEAKER) (test code = 1.8 mg/dL 1.6-2.6 627) BASIC METABOLIC [id number] 06:45:00 Test Item Value Reference Range Interpretation Comments SODIUM (BEAKER) 141 meq/L 136-145 (test code = 381) POTASSIUM (BEAKER) 3.7 meq/L 3.5-5.1 (test code = 379) CHLORIDE (BEAKER) 107 meq/L 98-107 (test code = 382) CO2 (BEAKER) (test 29 meq/L 22-29 code = 355) BLOOD UREA NITROGEN 3 mg/dL 7-21 L (BEAKER) (test code = 354) CREATININE (BEAKER) 0.73 mg/dL 0.57-1.25 (test code = 358) GLUCOSE RANDOM 90 mg/dL 70-105 (BEAKER) (test code = 652) CALCIUM (BEAKER) 8.6 mg/dL 8.4-10.2 (test code = 697) EGFR (BEAKER) (test 79 mL/min/1.73 ESTIMA TRACY GFR IS code = 1092) sq m NOT ACCURATE CREATININE CLEARANCE IN PREDICTING GLOMERULAR FILTRATION RATE . ESTIMATED GFR I S NOT APPLICABLE FOR DIALYSIS PATIEN TS. CBC W/PLT COUNT & AUTO [id number] 05:54:00 Test Item Value Reference Range Interpretation Comments WHITE BLOOD CELL COUNT (BEAKER) 4.5 K/ L 3.5-10.5 (test code = 775) RED BLOOD CELL COUNT (BEAKER) 3.38 M/ L 3.93-5.22 L (test code = 761) HEMOGLOBIN (BEAKER) (test code = 7.0 GM/DL 11.2-15.7 L 410) HEMATOCRIT (BEAKER) (test code = 25.5 % 34.1-44.9 L 411) MEAN CORPUSCULAR VOLUME (BEAKER) 75.4 fL 79.4-94.8 L (test code = 753) MEAN CORPUSCULAR HEMOGLOBIN 20.7 pg 25.6-32.2 L (BEAKER) (test code = 751) MEAN CORPUSCULAR HEMOGLOBIN CONC 27.5 GM/DL 32.2-35.5 L (BEAKER) (test code = 752) RED CELL DISTRIBUTION WIDTH 26.2 % 11.7-14.4 H (BEAKER) (test code = 412) PLATELET COUNT (BEAKER) (test 278 K/CU MM 150-450 code = 756) MEAN PLATELET VOLUME (BEAKER) 8.9 fL 9.4-12.3 L (test code = 754) NUCLEATED RED BLOOD CELLS 0 /100 WBC 0-0 (BEAKER) (test code = 413) NEUTROPHILS RELATIVE PERCENT 61 % (BEAKER) (test code = 429) LYMPHOCYTES RELATIVE PERCENT 27 % (BEAKER) (test code = 430) MONOCYTES RELATIVE PERCENT 10 % (BEAKER) (test code = 431) EOSINOPHILS RELATIVE PERCENT 2 % (BEAKER) (test code = 432) BASOPHILS RELATIVE PERCENT 1 % (BEAKER) (test code = 437) NEUTROPHILS ABSOLUTE COUNT 2.73 K/ L 1.56-6.13 (BEAKER) (test code = 670) LYMPHOCYTES ABSOLUTE COUNT 1.20 K/ L 1.18-3.74 (BEAKER) (test code = 414) MONOCYTES ABSOLUTE COUNT (BEAKER) 0.43 K/ L 0.24-0.36 H (test code = 415) EOSINOPHILS ABSOLUTE COUNT 0.09 K/ L 0.04-0.36 (BEAKER) (test code = 416) BASOPHILS ABSOLUTE COUNT (BEAKER) 0.03 K/ L 0.01-0.08 (test code = 417) IMMATURE GRANULOCYTES-RELATIVE 0 % 0-1 PERCENT (BEAKER) (test code = 2801) VITAMIN D, [id number] 22:15:00 Test Item Value Reference Range Interpretation Comments VITAMIN D 25-OH (BEAKER) (test code 6.4 ng/mL 6.6-49.9 L = 2764) Effective 08/13/2017: Reference Range ChangeNew: 6.6-49.9 ng/mL Previous: 13.0- 47.8 ng/mLRecommendedVitamin D Target Range: 30.0-40.0 ng/mLVITAMIN B12 AND [id number] 18:39:00 Test Item Value Reference Range Interpretation Comments VITAMIN B12 (BEAKER) (test code = 900 pg/mL 213-816 H 774) FOLATE (BEAKER) (test code = 362) 36.1 ng/mL >=7.0 BASIC METABOLIC [id number] 04:34:00 Test Item Value Reference Range Interpretation Comments SODIUM (BEAKER) 145 meq/L 136-145 (test code = 381) POTASSIUM (BEAKER) 3.2 meq/L 3.5-5.1 L (test code = 379) CHLORIDE (BEAKER) 108 meq/L 98-107 H (test code = 382) CO2 (BEAKER) (test 30 meq/L 22-29 H code = 355) BLOOD UREA NITROGEN < mg/dL 7-21 L (BEAKER) (test code = 354) CREATININE (BEAKER) 0.68 mg/dL 0.57-1.25 (test code = 358) GLUCOSE RANDOM 79 mg/dL 70-105 (BEAKER) (test code = 652) CALCIUM (BEAKER) 8.9 mg/dL 8.4-10.2 (test code = 697) EGFR (BEAKER) (test 86 mL/min/1.73 ESTIMA TRACY GFR IS code = 1092) sq m NOT ACCURATE CREATININE CLEARANCE IN PREDICTING GLOMERULAR FILTRATION RATE . ESTIMATED GFR I S NOT APPLICABLE FOR DIALYSIS PATIEN TS. [id number] 04:31:00 Test Item Value Reference Range Interpretation Comments MAGNESIUM (BEAKER) (test code = 1.9 mg/dL 1.6-2.6 627) CBC W/PLT COUNT & AUTO [id number] 04:17:00 Test Item Value Reference Range Interpretation Comments WHITE BLOOD CELL COUNT (BEAKER) 3.3 K/ L 3.5-10.5 L (test code = 775) RED BLOOD CELL COUNT (BEAKER) 3.63 M/ L 3.93-5.22 L (test code = 761) HEMOGLOBIN (BEAKER) (test code = 7.5 GM/DL 11.2-15.7 L 410) HEMATOCRIT (BEAKER) (test code = 26.6 % 34.1-44.9 L 411) MEAN CORPUSCULAR VOLUME (BEAKER) 73.3 fL 79.4-94.8 L (test code = 753) MEAN CORPUSCULAR HEMOGLOBIN 20.7 pg 25.6-32.2 L (BEAKER) (test code = 751) MEAN CORPUSCULAR HEMOGLOBIN CONC 28.2 GM/DL 32.2-35.5 L (BEAKER) (test code = 752) RED CELL DISTRIBUTION WIDTH 25.7 % 11.7-14.4 H (BEAKER) (test code = 412) PLATELET COUNT (BEAKER) (test 299 K/CU MM 150-450 code = 756) MEAN PLATELET VOLUME (BEAKER) 8.9 fL 9.4-12.3 L (test code = 754) NUCLEATED RED BLOOD CELLS 0 /100 WBC 0-0 (BEAKER) (test code = 413) NEUTROPHILS RELATIVE PERCENT 48 % (BEAKER) (test code = 429) LYMPHOCYTES RELATIVE PERCENT 39 % (BEAKER) (test code = 430) MONOCYTES RELATIVE PERCENT 11 % (BEAKER) (test code = 431) EOSINOPHILS RELATIVE PERCENT 2 % (BEAKER) (test code = 432) BASOPHILS RELATIVE PERCENT 1 % (BEAKER) (test code = 437) NEUTROPHILS ABSOLUTE COUNT 1.57 K/ L 1.56-6.13 (BEAKER) (test code = 670) LYMPHOCYTES ABSOLUTE COUNT 1.27 K/ L 1.18-3.74 (BEAKER) (test code = 414) MONOCYTES ABSOLUTE COUNT (BEAKER) 0.35 K/ L 0.24-0.36 (test code = 415) EOSINOPHILS ABSOLUTE COUNT 0.06 K/ L 0.04-0.36 (BEAKER) (test code = 416) BASOPHILS ABSOLUTE COUNT (BEAKER) 0.02 K/ L 0.01-0.08 (test code = 417) IMMATURE GRANULOCYTES-RELATIVE 0 % 0-1 PERCENT (BEAKER) (test code = 2801) HEMOGLOBIN AND [id number] 17:44:00 Test Item Value Reference Range Interpretation Comments HEMOGLOBIN (BEAKER) (test code = 7.7 GM/DL 11.2-15.7 L 410) HEMATOCRIT (BEAKER) (test code = 26.7 % 34.1-44.9 L 411) CBC W/PLT COUNT & AUTO [id number] 05:39:00 Test Item Value Reference Range Interpretation Comments WHITE BLOOD CELL COUNT (BEAKER) 6.6 K/ L 3.5-10.5 (test code = 775) RED BLOOD CELL COUNT (BEAKER) 3.41 M/ L 3.93-5.22 L (test code = 761) HEMOGLOBIN (BEAKER) (test code = 7.0 GM/DL 11.2-15.7 L 410) HEMATOCRIT (BEAKER) (test code = 24.2 % 34.1-44.9 L 411) MEAN CORPUSCULAR VOLUME (BEAKER) 71.0 fL 79.4-94.8 L (test code = 753) MEAN CORPUSCULAR HEMOGLOBIN 20.5 pg 25.6-32.2 L (BEAKER) (test code = 751) MEAN CORPUSCULAR HEMOGLOBIN CONC 28.9 GM/DL 32.2-35.5 L (BEAKER) (test code = 752) RED CELL DISTRIBUTION WIDTH 24.4 % 11.7-14.4 H (BEAKER) (test code = 412) PLATELET COUNT (BEAKER) (test 319 K/CU MM 150-450 code = 756) MEAN PLATELET VOLUME (BEAKER) 8.8 fL 9.4-12.3 L (test code = 754) NUCLEATED RED BLOOD CELLS 0 /100 WBC 0-0 (BEAKER) (test code = 413) NEUTROPHILS RELATIVE PERCENT 70 % (BEAKER) (test code = 429) LYMPHOCYTES RELATIVE PERCENT 21 % (BEAKER) (test code = 430) MONOCYTES RELATIVE PERCENT 7 % (BEAKER) (test code = 431) EOSINOPHILS RELATIVE PERCENT 2 % (BEAKER) (test code = 432) BASOPHILS RELATIVE PERCENT 1 % (BEAKER) (test code = 437) NEUTROPHILS ABSOLUTE COUNT 4.64 K/ L 1.56-6.13 (BEAKER) (test code = 670) LYMPHOCYTES ABSOLUTE COUNT 1.37 K/ L 1.18-3.74 (BEAKER) (test code = 414) MONOCYTES ABSOLUTE COUNT (BEAKER) 0.44 K/ L 0.24-0.36 H (test code = 415) EOSINOPHILS ABSOLUTE COUNT 0.11 K/ L 0.04-0.36 (BEAKER) (test code = 416) BASOPHILS ABSOLUTE COUNT (BEAKER) 0.06 K/ L 0.01-0.08 (test code = 417) IMMATURE GRANULOCYTES-RELATIVE 0 % 0-1 PERCENT (BEAKER) (test code = 2801) TSH/FREE T4 IF [id number] 07:32:00 Test Item Value Reference Range Interpretation Comments THYROID STIMULATING HORMONE 2.57 uIU/mL 0.35-4.94 (BEAKER) (test code = 772) CBC W/PLT COUNT & AUTO [id number] 07:05:00 Test Item Value Reference Range Interpretation Comments WHITE BLOOD CELL COUNT (BEAKER) 3.3 K/ L 3.5-10.5 L (test code = 775) RED BLOOD CELL COUNT (BEAKER) 3.50 M/ L 3.93-5.22 L (test code = 761) HEMOGLOBIN (BEAKER) (test code = 7.3 GM/DL 11.2-15.7 L 410) HEMATOCRIT (BEAKER) (test code = 25.2 % 34.1-44.9 L 411) MEAN CORPUSCULAR VOLUME (BEAKER) 72.0 fL 79.4-94.8 L (test code = 753) MEAN CORPUSCULAR HEMOGLOBIN 20.9 pg 25.6-32.2 L (BEAKER) (test code = 751) MEAN CORPUSCULAR HEMOGLOBIN CONC 29.0 GM/DL 32.2-35.5 L (BEAKER) (test code = 752) RED CELL DISTRIBUTION WIDTH 23.5 % 11.7-14.4 H (BEAKER) (test code = 412) PLATELET COUNT (BEAKER) (test 291 K/CU MM 150-450 code = 756) MEAN PLATELET VOLUME (BEAKER) 8.8 fL 9.4-12.3 L (test code = 754) NUCLEATED RED BLOOD CELLS 0 /100 WBC 0-0 (BEAKER) (test code = 413) NEUTROPHILS RELATIVE PERCENT 48 % (BEAKER) (test code = 429) LYMPHOCYTES RELATIVE PERCENT 40 % (BEAKER) (test code = 430) MONOCYTES RELATIVE PERCENT 9 % (BEAKER) (test code = 431) EOSINOPHILS RELATIVE PERCENT 2 % (BEAKER) (test code = 432) BASOPHILS RELATIVE PERCENT 1 % (BEAKER) (test code = 437) NEUTROPHILS ABSOLUTE COUNT 1.57 K/ L 1.56-6.13 (BEAKER) (test code = 670) LYMPHOCYTES ABSOLUTE COUNT 1.29 K/ L 1.18-3.74 (BEAKER) (test code = 414) MONOCYTES ABSOLUTE COUNT (BEAKER) 0.28 K/ L 0.24-0.36 (test code = 415) EOSINOPHILS ABSOLUTE COUNT 0.07 K/ L 0.04-0.36 (BEAKER) (test code = 416) BASOPHILS ABSOLUTE COUNT (BEAKER) 0.04 K/ L 0.01-0.08 (test code = 417) IMMATURE GRANULOCYTES-RELATIVE 0 % 0-1 PERCENT (BEAKER) (test code = 2801) [id number] 13:35:00 Test Item Value Reference Range Interpretation Comments FERRITIN (BEAKER) (test code = 361) 9 ng/mL 5-275 VITAMIN B12 AND [id number] 13:35:00 Test Item Value Reference Range Interpretation Comments VITAMIN B12 (BEAKER) (test code = 620 pg/mL 213-816 774) FOLATE (BEAKER) (test code = 362) 3.6 ng/mL >=7.0 L IRON, TIBC, % SAT. (WITHOUT FERRITIN)2019-07-10 10:50:00 Test Item Value Reference Range Interpretation Comments IRON (BEAKER) (test code = 547) 174.0 ug/dL 40.0-160.0 H TOTAL IRON BINDING CAPACITY 308 ug/dL 250-450 (BEAKER) (test code = 769) IRON % SATURATION (2) (BEAKER) 56 % 20-55 H (test code = 2590) [id number] 03:38:00 Test Item Value Reference Range Interpretation Comments AMMONIA (BEAKER) (test code = 348) 31 mol/L 18-72 HEPATIC FUNCTION [id number] 03:24:00 Test Item Value Reference Range Interpretation Comments TOTAL PROTEIN (BEAKER) (test code = 6.2 gm/dL 6.0-8.3 770) ALBUMIN (BEAKER) (test code = 1145) 3.5 g/dL 3.5-5.0 BILIRUBIN TOTAL (BEAKER) (test code 1.2 mg/dL 0.2-1.2 = 377) BILIRUBIN DIRECT (BEAKER) (test 0.5 mg/dL 0.1-0.5 code = 706) ALKALINE PHOSPHATASE (BEAKER) (test 80 U/L 40-150 code = 346) AST (SGOT) (BEAKER) (test code = 19 U/L 5-34 353) ALT (SGPT) (BEAKER) (test code = 11 U/L 6-55 347) BASIC METABOLIC [id number] 03:24:00 Test Item Value Reference Range Interpretation Comments SODIUM (BEAKER) 140 meq/L 136-145 (test code = 381) POTASSIUM (BEAKER) 4.2 meq/L 3.5-5.1 (test code = 379) CHLORIDE (BEAKER) 108 meq/L 98-107 H (test code = 382) CO2 (BEAKER) (test 25 meq/L 22-29 code = 355) BLOOD UREA NITROGEN 11 mg/dL 7-21 (BEAKER) (test code = 354) CREATININE (BEAKER) 0.79 mg/dL 0.57-1.25 (test code = 358) GLUCOSE RANDOM 109 mg/dL 70-105 H (BEAKER) (test code = 652) CALCIUM (BEAKER) 9.1 mg/dL 8.4-10.2 (test code = 697) EGFR (BEAKER) (test 72 mL/min/1.73 ESTIMA TRACY GFR IS code = 1092) sq m NOT ACCURATE CREATININE CLEARANCE IN PREDICTING GLOMERULAR FILTRATION RATE . ESTIMATED GFR I S NOT APPLICABLE FOR DIALYSIS PATIEN TS. [id number] 03:23:00 Test Item Value Reference Range Interpretation Comments LIPASE (BEAKER) (test code = 749) 6 U/L 8-78 L PROTHROMBIN [id number] 03:14:00 Test Item Value Reference Range Interpretation Comments PROTIME (BEAKER) (test code = 12.7 seconds 11.9-14.2 759) INR (BEAKER) (test code = 370) 1.0 <=5.9 Effective 03/31/2019: PT Reference Range ChangeNew: 11.9-14.2 Previous: 11.7- 14.7RECOMMENDED COUMADIN/WARFARIN INR THERAPY RANGESSTANDARD DOSE: 2.0-3.0 Includes: PROPHYLAXIS for venous thrombosis, systemic embolization; TREATMENT for venous thrombosis and/or pulmonary embolus.HIGH RISK: Target INR is 2.5-3.5 for patients wiht mechanical heart valves.CBC W/PLT COUNT & AUTO WVYHFGCCHBFK4138-50-36 03:01:00 Test Item Value Reference Range Interpretation Comments WHITE BLOOD CELL COUNT (BEAKER) 5.2 K/ L 3.5-10.5 (test code = 775) RED BLOOD CELL COUNT (BEAKER) 3.84 M/ L 3.93-5.22 L (test code = 761) HEMOGLOBIN (BEAKER) (test code = 7.8 GM/DL 11.2-15.7 L 410) HEMATOCRIT (BEAKER) (test code = 27.8 % 34.1-44.9 L 411) MEAN CORPUSCULAR VOLUME (BEAKER) 72.4 fL 79.4-94.8 L (test code = 753) MEAN CORPUSCULAR HEMOGLOBIN 20.3 pg 25.6-32.2 L (BEAKER) (test code = 751) MEAN CORPUSCULAR HEMOGLOBIN CONC 28.1 GM/DL 32.2-35.5 L (BEAKER) (test code = 752) RED CELL DISTRIBUTION WIDTH 23.0 % 11.7-14.4 H (BEAKER) (test code = 412) PLATELET COUNT (BEAKER) (test 294 K/CU MM 150-450 code = 756) MEAN PLATELET VOLUME (BEAKER) 8.5 fL 9.4-12.3 L (test code = 754) NUCLEATED RED BLOOD CELLS 0 /100 WBC 0-0 (BEAKER) (test code = 413) NEUTROPHILS RELATIVE PERCENT 66 % (BEAKER) (test code = 429) LYMPHOCYTES RELATIVE PERCENT 23 % (BEAKER) (test code = 430) MONOCYTES RELATIVE PERCENT 8 % (BEAKER) (test code = 431) EOSINOPHILS RELATIVE PERCENT 2 % (BEAKER) (test code = 432) BASOPHILS RELATIVE PERCENT 1 % (BEAKER) (test code = 437) NEUTROPHILS ABSOLUTE COUNT 3.48 K/ L 1.56-6.13 (BEAKER) (test code = 670) LYMPHOCYTES ABSOLUTE COUNT 1.18 K/ L 1.18-3.74 (BEAKER) (test code = 414) MONOCYTES ABSOLUTE COUNT (BEAKER) 0.39 K/ L 0.24-0.36 H (test code = 415) EOSINOPHILS ABSOLUTE COUNT 0.11 K/ L 0.04-0.36 (BEAKER) (test code = 416) BASOPHILS ABSOLUTE COUNT (BEAKER) 0.05 K/ L 0.01-0.08 (test code = 417) IMMATURE GRANULOCYTES-RELATIVE 0 % 0-1 PERCENT (BEAKER) (test code = 2801) XEZCOMINSJDT4606-91-80 01:19:00 Test Item Value Reference Range Interpretation Comments AGAP (test code = AGAP) 12.8 10.0-20.0 [facility] RfcxlrvTCLVFPZFPQKQ1467-45-42 01:19:00 Test Item Value Reference Range Interpretation Comments eGFR (test code = eGFR) 59 [facility]YfddtqnTDMSMHRSQRXD9332-31-66 01:19:00 Test Item Value Reference Range Interpretation Comments Glucose Lvl (test code = Glucose Lvl) 93 70-99 [facility] HospitalXtpiaxnBFLKRIIGXFNG6035-83-97 01:19:00 Test Item Value Reference Range Interpretation Comments Potassium Lvl (test code = Potassium 3.8 3.5-5.1 Lvl) [facility] HospitalHtomowbKPJYXNRLFZKW8745-05-46 01:19:00 Test Item Value Reference Range Interpretation Comments Sodium Lvl (test code = Sodium Lvl) 137 135-145 [facility] HospitalYodrdhpPRQTMVFMQEQU1593-69-08 01:19:00 Test Item Value Reference Range Interpretation Comments Creatinine Lvl (test code = Creatinine 1.00 0.50-1.40 Lvl) [facility] HospitalPqwlhocPDCNLRGXTWLC5275-84-14 01:19:00 Test Item Value Reference Range Interpretation Comments BUN (test code = BUN) 11 7-22 [facility] HospitalOrieymlWDQXAKPSEGDW4435-23-50 01:19:00 Test Item Value Reference Range Interpretation Comments Calcium Lvl (test code = Calcium Lvl) 8.6 8.5-10.5 [facility] HospitalAlzrnwiNNDNNUTRWUYQ3507-19-00 01:19:00 Test Item Value Reference Range Interpretation Comments CO2 (test code = CO2) 24 24-32 [facility] HospitalKkvxhwzGNKSVMAUKNZV3670-50-20 01:19:00 Test Item Value Reference Range Interpretation Comments Chloride Lvl (test code = Chloride Lvl) 104 95-109 [facility] HospitalDlhwuhyVZCESQMXLE1833-30-14 01:19:00 Test Item Value Reference Range Interpretation Comments PTT (test code = PTT) 38.7 s 22.9-35.8 [facility] HospitalUdrpsjrQBAILAPGZX6120-72-10 01:19:00 Test Item Value Reference Range Interpretation Comments MPV (test code = MPV) 6.9 7.4-10.4 [facility] HospitalXustxlqYGJIMHTCPD0740-06-13 01:19:00 Test Item Value Reference Range Interpretation Comments WBC (test code = WBC) 6.5 3.7-10.4 [facility] HospitalFrwquyxSZULIPWXLB3386-31-86 01:19:00 Test Item Value Reference Range Interpretation Comments RDW (test code = RDW) 25.2 11.5-14.5 [facility] HospitalLkxcinkVSEHJRQRUH9262-67-53 01:19:00 Test Item Value Reference Range Interpretation Comments MCV (test code = MCV) 69.4 80.0-98.0 [facility] HospitalDvcbedsZRMZOUZMKA4739-24-26 01:19:00 Test Item Value Reference Range Interpretation Comments MCH (test code = MCH) 20.4 pg 27.0-31.0 [facility] HospitalGehjiegMMNQDPMQYS0311-20-17 01:19:00 Test Item Value Reference Range Interpretation Comments Hct (test code = Hct) 24.3 36.0-48.0 [facility] HospitalIvxozhpIDDLRAIIIC3667-01-60 01:19:00 Test Item Value Reference Range Interpretation Comments RBC (test code = RBC) 3.51 4.20-5.40 [facility] HospitalBetjwveOUQZGAXQKQ9628-75-02 01:19:00 Test Item Value Reference Range Interpretation Comments Hgb (test code = Hgb) 7.2 12.0-16.0 [facility] HospitalRhejiyzMTTITSASQO2350-06-01 01:19:00 Test Item Value Reference Range Interpretation Comments Platelet (test code = Platelet) 298 133-450 [facility] HospitalRzeogxfBJJIIFHVUK7651-76-71 01:19:00 Test Item Value Reference Range Interpretation Comments MCHC (test code = MCHC) 29.5 32.0-36.0 [facility] HospitalMxucktbJUIJHLPPUC2515-06-55 01:19:00 Test Item Value Reference Range Interpretation Comments INR (test code = INR) 0.92 0.85-1.17 [facility] HospitalMgfjilcBQXLNFOBUG2339-29-03 01:19:00 Test Item Value Reference Range Interpretation Comments PT (test code = PT) 12.4 s 12.0-14.7 [facility] HospitalPbdufrvJOCMIWTHHZ8831-94-21 01:19:00 Test Item Value Reference Range Interpretation Comments Segs-Bands # (test code = Segs-Bands #) 4.8 1.5-8.1 [facility] HospitalLhvplvvHSGHVVZNNP6175-00-27 01:19:00 Test Item Value Reference Range Interpretation Comments Lymphocytes # (test code = Lymphocytes 0.9 1.0-5.5 #) [facility] HospitalAmcouprXUTGVYAJKJ3848-91-18 01:19:00 Test Item Value Reference Range Interpretation Comments Monocytes # (test code 0.6 See_Comment [Aut omated message] The = Monocytes #) system which generated this result tra nsmitted reference range : <=0.8. The reference r pascual was not used to int erpret this result as normal/abnormal . [facility] HospitalXgsmcewVQZGHRAKTZ3201-32-07 01:19:00 Test Item Value Reference Range Interpretation Comments Hypochrom (test code = 1+ (09/06/17 8:19 PM) Hypochrom) [facility] HospitalDwvosasRNILAELRJN0145-20-11 01:19:00 Test Item Value Reference Range Interpretation Comments Anisocyte (test code = 1+ *ABN*(09/06/17 Anisocyte) 8:19 PM) [facility] HospitalZpeikatLAUISDYJFJ2607-30-34 01:19:00 Test Item Value Reference Range Interpretation Comments Microcyte (test code = 2+ *ABN*(09/06/17 Microcyte) 8:19 PM) [facility] HospitalXdiuevwWCWIQYSSSJ4980-15-08 01:19:00 Test Item Value Reference Range Interpretation Comments Eosinophils # (test code 0.1 See_Comment [A utomated message] The = Eosinophils #) system whic h generated this result tra nsmitted reference range : <=0.5. The reference r pascual was not used to int erpret this result as normal/abnormal . [facility] HospitalIjfhkdjYMBFHBYBFL6062-82-68 01:19:00 Test Item Value Reference Range Interpretation Comments Segs (test code = Segs) 74.1 45.0-75.0 [facility] HospitalHkflhmxORJSYXKQDN5526-87-12 01:19:00 Test Item Value Reference Range Interpretation Comments Lymphocytes (test code = Lymphocytes) 13.9 20.0-40.0 [facility] HospitalVvtjhvmQPYDLCDKHH9504-84-97 01:19:00 Test Item Value Reference Range Interpretation Comments Plt Morph (test code = Normal (09/06/17 8:19 Plt Morph) PM) [facility] HospitalFxcmyeyUKZPCUKJBN0571-67-41 01:19:00 Test Item Value Reference Range Interpretation Comments Monocytes (test code = Monocytes) 9.1 2.0-12.0 [facility] HospitalYzaqpjeMYRUMDWGQW2653-48-49 01:19:00 Test Item Value Reference Range Interpretation Comments Eosinophils (test code = 2.3 See_Comment [A utomated message] The Eosinophils) system which ge nerated this result tra nsmitted reference range : <=4.0. The reference r pascual was not used to int erpret this result as normal/abnormal . [facility] HospitalKrqhncwMMPXLGIXLW1658-39-73 01:19:00 Test Item Value Reference Range Interpretation Comments Basophils (test code = 0.6 See_Comment [Aut omated message] The Basophils) system which ge nerated this result tra nsmitted reference range : <=1.0. The reference r pascual was not used to int erpret this result as normal/abnormal . [facility] HospitalFznmbltACMWAVLOGLIX1325-18-59 01:19:00 Test Item Value Reference Range Interpretation Comments AGAP (test code = AGAP) 12.8 10.0-20.0 [facility] HospitalPyxnexkEFDCYXXOWFZA3528-57-11 01:19:00 Test Item Value Reference Range Interpretation Comments eGFR (test code = eGFR) 59 [facility] HospitalCtvalnqZVDROCCIFVJE1255-79-99 01:19:00 Test Item Value Reference Range Interpretation Comments Glucose Lvl (test code = Glucose Lvl) 93 70-99 [facility] HospitalKvhfszfOHUTHGJQIQGI0359-21-24 01:19:00 Test Item Value Reference Range Interpretation Comments Potassium Lvl (test code = Potassium 3.8 3.5-5.1 Lvl) [facility] HospitalHnbozhlWWCGTIGIXTBA9463-28-93 01:19:00 Test Item Value Reference Range Interpretation Comments Sodium Lvl (test code = Sodium Lvl) 137 135-145 [facility] HospitalKedhuafJWHOBUVFUZQE3311-99-40 01:19:00 Test Item Value Reference Range Interpretation Comments Creatinine Lvl (test code = Creatinine 1.00 0.50-1.40 Lvl) [facility] HospitalOumtgrhRBMAJBLTARVM8403-70-12 01:19:00 Test Item Value Reference Range Interpretation Comments BUN (test code = BUN) 11 7-22 [facility] HospitalEvkwbtgKRXQNLRBUNJH6033-60-96 01:19:00 Test Item Value Reference Range Interpretation Comments Calcium Lvl (test code = Calcium Lvl) 8.6 8.5-10.5 [facility] HospitalAnvgexfKTGJENUZIQXY2825-39-88 01:19:00 Test Item Value Reference Range Interpretation Comments CO2 (test code = CO2) 24 24-32 [facility] HospitalVsamqvdJFSMVATBYCLR9148-11-40 01:19:00 Test Item Value Reference Range Interpretation Comments Chloride Lvl (test code = Chloride Lvl) 104 95-109 [facility] HospitalGdatgjlBZRUBOPMHR7650-34-67 01:19:00 Test Item Value Reference Range Interpretation Comments PTT (test code = PTT) 38.7 s 22.9-35.8 [facility] HospitalKwzfhkzKAKXCIELMZ3616-11-03 01:19:00 Test Item Value Reference Range Interpretation Comments MPV (test code = MPV) 6.9 7.4-10.4 [facility] HospitalOnsuzqcKFEXCZQUZD4827-43-15 01:19:00 Test Item Value Reference Range Interpretation Comments WBC (test code = WBC) 6.5 3.7-10.4 [facility] HospitalZeyfqtcRKFOWMKPJP9693-90-64 01:19:00 Test Item Value Reference Range Interpretation Comments RDW (test code = RDW) 25.2 11.5-14.5 [facility] HospitalOlpshcaOOXGVWHQRD7723-33-04 01:19:00 Test Item Value Reference Range Interpretation Comments MCV (test code = MCV) 69.4 80.0-98.0 [facility] HospitalAeybkbgQKHEBIFQLN1690-62-20 01:19:00 Test Item Value Reference Range Interpretation Comments MCH (test code = MCH) 20.4 pg 27.0-31.0 [facility] HospitalMhyyilgGKVDQRCWKU2716-14-50 01:19:00 Test Item Value Reference Range Interpretation Comments Hct (test code = Hct) 24.3 36.0-48.0 [facility] HospitalQgjxgdaJMNYZRQRIF0785-18-69 01:19:00 Test Item Value Reference Range Interpretation Comments RBC (test code = RBC) 3.51 4.20-5.40 [facility] HospitalWjefjcePHGSKKMFTJ9256-62-51 01:19:00 Test Item Value Reference Range Interpretation Comments Hgb (test code = Hgb) 7.2 12.0-16.0 [facility] HospitalIyyfsvuDBBVOKROZT4503-20-89 01:19:00 Test Item Value Reference Range Interpretation Comments Platelet (test code = Platelet) 298 133-450 [facility] HospitalPbgkdgsEBEDANRCEA1966-82-83 01:19:00 Test Item Value Reference Range Interpretation Comments MCHC (test code = MCHC) 29.5 32.0-36.0 [facility] HospitalQlktazvHUZNUJOWTZ1529-92-67 01:19:00 Test Item Value Reference Range Interpretation Comments INR (test code = INR) 0.92 0.85-1.17 [facility] HospitalAyzzwotBZRYAEIZZK3754-47-30 01:19:00 Test Item Value Reference Range Interpretation Comments PT (test code = PT) 12.4 s 12.0-14.7 [facility] HospitalGqjgkhxDIPKTWLYQT3075-48-09 01:19:00 Test Item Value Reference Range Interpretation Comments Segs-Bands # (test code = Segs-Bands #) 4.8 1.5-8.1 [facility] HospitalGyvdckcOTLADWAWPY5675-32-76 01:19:00 Test Item Value Reference Range Interpretation Comments Lymphocytes # (test code = Lymphocytes 0.9 1.0-5.5 #) [facility] HospitalXdacjjaIKLKPXMJUW9117-12-52 01:19:00 Test Item Value Reference Range Interpretation Comments Monocytes # (test code 0.6 See_Comment [Aut omated message] The = Monocytes #) system which generated this result tra nsmitted reference range : <=0.8. The reference r pascual was not used to int erpret this result as normal/abnormal . [facility] HospitalGshcbpkQUMAQZGVSX3192-89-98 01:19:00 Test Item Value Reference Range Interpretation Comments Hypochrom (test code = 1+ (09/06/17 8:19 PM) Hypochrom) [facility] HospitalDpljwrlNFAPQDAKFW3739-86-92 01:19:00 Test Item Value Reference Range Interpretation Comments Anisocyte (test code = 1+ *ABN*(09/06/17 Anisocyte) 8:19 PM) [facility] HospitalEkgznlgEAJLRWSFYZ5694-94-56 01:19:00 Test Item Value Reference Range Interpretation Comments Microcyte (test code = 2+ *ABN*(09/06/17 Microcyte) 8:19 PM) [facility] HospitalShncbzfCUIINTRKQE7663-04-29 01:19:00 Test Item Value Reference Range Interpretation Comments Eosinophils # (test code 0.1 See_Comment [A utomated message] The = Eosinophils #) system whic h generated this result tra nsmitted reference range : <=0.5. The reference r pascual was not used to int erpret this result as normal/abnormal . [facility] HospitalEysropxKYMKTUDLBU8982-69-37 01:19:00 Test Item Value Reference Range Interpretation Comments Segs (test code = Segs) 74.1 45.0-75.0 [facility] HospitalWcbjtfjTTGIQZYXVX0960-48-05 01:19:00 Test Item Value Reference Range Interpretation Comments Lymphocytes (test code = Lymphocytes) 13.9 20.0-40.0 [facility]KrtbdswUJEHDULDTA0071-03-46 01:19:00 Test Item Value Reference Range Interpretation Comments Plt Morph (test code = Normal (09/06/17 8:19 Plt Morph) PM) [facility] HospitalIirpqvqFEEVLXSQDI3998-63-04 01:19:00 Test Item Value Reference Range Interpretation Comments Monocytes (test code = Monocytes) 9.1 2.0-12.0 [facility] HospitalDyxjpziRMCHTQZKRQ2528-65-90 01:19:00 Test Item Value Reference Range Interpretation Comments Eosinophils (test code = 2.3 See_Comment [A utomated message] The Eosinophils) system which ge nerated this result tra nsmitted reference range : <=4.0. The reference r pascual was not used to int erpret this result as normal/abnormal . [facility] HospitalCvuatssRCMTJHPYMT5306-45-75 01:19:00 Test Item Value Reference Range Interpretation Comments Basophils (test code = 0.6 See_Comment [Aut omated message] The Basophils) system which ge nerated this result tra nsmitted reference range : <=1.0. The reference r pascual was not used to int erpret this result as normal/abnormal . [facility] EtzglaeWYDBPEFNBYOQ6597-58-98 01:19:0012.8[facility]LECT[facility] 2017-[facility]-07 01:19:0059[facility] NkbbyxbSKAZAGLRKKVF5090-75-09 01:19:0093[facility] MlsnqteZRPUDCDDYXDZ1149-19-94 01:19:003.8[facility] TdyxpoyUYHAZNGOCRMC4382-91-87 01:19:92199Rwixzkyh JransdtLSVKTCUGAYSR1723-58-92 01:19:001.00[facility] VCXMCLDCDISN9626-00-99 01:19:0011[facility] KjetvyxTKUCWVMWUIZH0861-84-64 01:19:00 8.6[facility] BvoulkmANGUGJBQNAGI0433-80-57 01:19:0024[facility]LECT[facility]TES 2017-09-07 01:19:79513Nfafiocs UfqosmpAJUUGSIAZI3209-64-50 01:19:00 Test Item Value Reference Range Interpretation Comments PTT (test code = PTT) 38.7 s 22.9-35.8 [facility] HospitalVafhzzkCKXZNQDTNA7264-33-17 01:19:006.9[facility]OLOGY 2017-09-07 01:19:006.5[facility] IghrfvfHYLKPWZTAU8573-99-39 01:19:0025.2[facility] WjlldpfGMDKHDDVJR3976-44-44 01:19:0069.4[facility] NafhsvuKZKUBDLUSP4106-82-63 01:19:00 Test Item Value Reference Range Interpretation Comments MCH (test code = MCH) 20.4 pg 27.0-31.0 [facility] QgpmbqqWLWDONOUOB0304-39-52 01:19:0024.3[facility]HE[facility]OLOGY 2017-09-07 01:19:003.51[facility] KrcnlnsGZPVIMMYZP5575-45-65 01:19:007.2[facility] KxjsiqcZYBVREIXVV4050-71-87 01:19:65071Zwfkthae DzsenwcFCTIQVYYOI4814-27-56 01:19:0029.5[facility] OmbrtuoKBTKDTQFYD8244-51-33 01:19:000.92[facility] QFJSYJAEBB5343-10-37 01:19:00 Test Item Value Reference Range Interpretation Comments PT (test code = PT) 12.4 s 12.0-14.7 [facility] XvbflliGWTAGISVXX9707-06-51 01:19:004.8[facility]HE[facility]OLOGY 2017-09-07 01:19:000.9[facility] PwokgiiLLJUYBKJNM9774-54-12 01:19:000.6[facility] ZcuhdykIJDVLFFPOY9993-00-77 01:19:001+ (09/06/17 8:19 PM)[facility] QNNDLYCOCP9363-59-88 01:19:001+ *ABN*(09/06/17 8:19 PM)[facility] 2017-09-07 01:19:002+ *ABN*(09/06/17 8:19 PM)[facility] PrtqcsfKMUWCLYKXJ5139-62-09 01:19:000.1[facility] SgillhjARNZXHAWHM4019-13-09 01:19:0074.1[facility] TDXNSICFQF4325-56-71 01:19:0013.9[facility] UawdtrcSFRZZBIKFW5636-77-49 01:19:00 Normal (09/06/17 8:19 PM)[facility] GzurbmlQMCFKWILIP8437-67-48 01:19:009.1[facility] FeplcicBVOAPWGHYA3888-75-79 01:19:002.3[facility] JfvluqfDUIAUWNSQW8566-97-53 01:19:000.6[facility] ZaqpnmyUECRZDLZDXWU8859-53-83 01:19:0012.8[facility] PEDBLIKCNGAS3710-55-95 01:19:0059[facility] OqchytcTHGLKGVUTAVO8494-06-97 01:19:00 93[facility] ErhqokuWLHYBUGTSITT7517-55-53 01:19:003.8[facility]annELECTROLYTES 2017-09-07 01:19:79811Mnxzekzo GpsyjpnCPBDRRKYFVGL3355-54-42 01:19:001.00 [facility] XkejhxyPZZEDCAVWDNE9383-54-31 01:19:0011[facility]ELECTROLYTES 2017-09-07 01:19:008.6[facility] DiyiasvNPGKHYQOMETK8810-96-35 01:19:0024[facility] OwhrgjtBTPSMVEZFQWO1957-30-86 01:19:20639Wclbeeqe PpquyoqNLXXEVSHYT7974-80-98 01:19:00 Test Item Value Reference Range Interpretation Comments PTT (test code = PTT) 38.7 s 22.9-35.8 [facility] UfigwtkNJDHXROXEO7326-75-31 01:19:006.9[facility] 2017-09-07 01:19:006.5[facility] PovwpxzMAATCMABLA6881-32-66 01:19:0025.2[facility] MmzykvrZJJGZOHTGX5430-69-62 01:19:0069.4[facility] LwqoeugKXTSZYXPMP3983-80-19 01:19:00 Test Item Value Reference Range Interpretation Comments MCH (test code = MCH) 20.4 pg 27.0-31.0 [facility] GaehexaKQPOSPVRJY8817-83-53 01:19:0024.3[facility]HE[facility] 2017-09-07 01:19:003.51[facility] NmydtysVMUWNKMYCM6221-48-47 01:19:007.2[facility] PccvihiSDUBMZUGEW0807-48-14 01:19:74461Hbvleuel AlghjxvEELNLNGJJM6494-37-36 01:19:0029.5[facility] IjkmtfdKRMGBDPRVJ7848-02-24 01:19:000.92[facility] UCMWSLRUJO3953-28-13 01:19:00 Test Item Value Reference Range Interpretation Comments PT (test code = PT) 12.4 s 12.0-14.7 [facility] IofyckaQRFBBAMKQW3134-51-75 01:19:004.8[facility] 2017-09-07 01:19:000.9[facility] XtycgajDJRXGLCIWI5794-18-90 01:19:000.6[facility] GgodlnoJDWTISMIWH6888-76-09 01:19:001+ (09/06/17 8:19 PM)[facility] TOQQCTKVEF7845-30-33 01:19:001+ *ABN*(09/06/17 8:19 PM)[facility] 2017-09-07 01:19:002+ *ABN*(09/06/17 8:19 PM)[facility] FydaecaWEOBLNWYUX4922-02-39 01:19:000.1[facility] QudohatZLBFIUPTEZ0054-55-10 01:19:0074.1[facility] USQZMIBBGU5625-46-25 01:19:0013.9[facility] JulzfjkSJKHDYKQBU9096-40-59 01:19:00 Normal (09/06/17 8:19 PM)[facility] WcoffsbRPLEIEEQGF2369-54-95 01:19:009.1[facility] OdcuhokFPUVSUUYEQ0468-12-36 01:19:002.3[facility] XthnptxYVSNMNNHRD1554-30-97 01:19:000.6[facility] XgxhcgkCFPJNXBTOSWC5945-68-91 01:19:0012.8[facility] PMHJNYZJNHDS4923-15-12 01:19:0059[facility] FathijaONWCNYOKTEEE4257-50-15 01:19:00 93[facility] GzavgzpGTXGRKZKNRLG7800-73-44 01:19:003.8[facility]annELECTROLYTES 2017-09-07 01:19:80414Kuqfflfa WljebnnTMPGHUIWQHIU3758-64-62 01:19:001.00 [facility] GdxkosyENAFWVTCHVXO6706-06-74 01:19:0011[facility]LECT[facility]OLYTES 2017-09-07 01:19:008.6[facility] XavjvmkDNBXPOXBERVQ3570-59-13 01:19:0024[facility] WowfjcfIPZIDYDQFKXW7118-50-21 01:19:50242Eiaugkgl YyhlmwmESBDWZGKPK3099-01-07 01:19:00 Test Item Value Reference Range Interpretation Comments PTT (test code = PTT) 38.7 s 22.9-35.8 [facility] YfnmjipDZBHWCSZMB8473-91-36 01:19:006.9[facility] 2017-09-07 01:19:006.5[facility] IhsukhsLBRUWTBFTG9056-27-91 01:19:0025.2[facility] IzpcsmnVLRPYNCRZG1291-04-65 01:19:0069.4[facility] LfvlqivDALHBDSUAS6664-77-21 01:19:00 Test Item Value Reference Range Interpretation Comments MCH (test code = MCH) 20.4 pg 27.0-31.0 [facility] TxuhtcqNMRQWDBMYI1694-66-19 01:19:0024.3[facility] 2017-09-07 01:19:003.51[facility] SwmhrzvKOEVEDRZLD4372-35-42 01:19:007.2[facility] DfrrraaGMXLQYNFTZ2755-79-70 01:19:22044Zgkectjf LcmmkguSILTUEVPYZ0000-74-92 01:19:0029.5[facility] MuhkeitVAKUTSPHAC3060-02-63 01:19:000.92[facility] BGYHVGAROW4911-13-75 01:19:00 Test Item Value Reference Range Interpretation Comments PT (test code = PT) 12.4 s 12.0-14.7 [facility] MuwgdgcYTWTRTMZOM4142-62-54 01:19:004.8[facility] 2017-09-07 01:19:000.9[facility] PlsugjvBSDLJNWWTC3357-67-36 01:19:000.6[facility] DqgbbumOZEDVHLTKY3952-38-70 01:19:001+ (09/06/17 8:19 PM)[facility] SHCNFILPJV9318-37-99 01:19:001+ *ABN*(09/06/17 8:19 PM)[facility] 2017-09-07 01:19:002+ *ABN*(09/06/17 8:19 PM)[facility]YihdhftZNJDDLXJPA5281-61-25 01:19:000.1[facility] MjxozcwRBNPIDZOMW3998-69-85 01:19:0074.1[facility] UVPCNKRAWL6022-53-17 01:19:0013.9[facility] RwkcylqTKXPQAXWYY5521-02-17 01:19:00 Normal (09/06/17 8:19 PM)[facility]AptfudoIIOEXYZUUA9358-29-90 01:19:009.1[facility] PiyartbZVEWOSJEQN7940-29-93 01:19:002.3[facility] UjqfgfwXMRPJIWXRT1658-93-63 01:19:000.6[facility] UcqsuepQTIETMLCDUOA9413-36-53 01:19:00 Test Item Value Reference Range Interpretation Comments AGAP (test code = AGAP) 12.8 10.0-20.0 [facility]OAQGKRZQSYNN2090-37-85 01:19:00 Test Item Value Reference Range Interpretation Comments eGFR (test code = eGFR) 59 [facility] HospitalVxcvqaaRGKJVKQBWNZW8194-21-54 01:19:00 Test Item Value Reference Range Interpretation Comments Glucose Lvl (test code = Glucose Lvl) 93 70-99 [facility] HospitalIkqkrxcRSFYPRNTIUGZ8307-00-00 01:19:00 Test Item Value Reference Range Interpretation Comments Potassium Lvl (test code = Potassium 3.8 3.5-5.1 Lvl) [facility] HospitalOaxuuzxTJDPDRIBPMBF0412-46-49 01:19:00 Test Item Value Reference Range Interpretation Comments AGAP (test code = AGAP) 12.8 10.0-20.0 [facility] HospitalAqumbrbWHKIUFZSXEQE1142-94-18 01:19:00 Test Item Value Reference Range Interpretation Comments Sodium Lvl (test code = Sodium Lvl) 137 135-145 [facility] HospitalApfsyegNJTEQPDOAGPJ2298-20-42 01:19:00 Test Item Value Reference Range Interpretation Comments eGFR (test code = eGFR) 59 [facility] HospitalFayiiztZPQARHTIMPXR5292-85-67 01:19:00 Test Item Value Reference Range Interpretation Comments Creatinine Lvl (test code = Creatinine 1.00 0.50-1.40 Lvl) [facility] HospitalWiwioxuSSODSTWBWXYM7510-08-08 01:19:00 Test Item Value Reference Range Interpretation Comments Glucose Lvl (test code = Glucose Lvl) 93 70-99 [facility] HospitalMvwdakfVQWAQOQNVFNO0431-15-29 01:19:00 Test Item Value Reference Range Interpretation Comments BUN (test code = BUN) 11 05-24 [facility] HospitalMxyhpcnHLXJZVXZEMNZ4265-44-86 01:19:00 Test Item Value Reference Range Interpretation Comments Potassium Lvl (test code = Potassium 3.8 3.5-5.1 Lvl) [facility] HospitalUphklniZTQEJUEJZPBT7349-77-72 01:19:00 Test Item Value Reference Range Interpretation Comments Calcium Lvl (test code = Calcium Lvl) 8.6 8.5-10.5 [facility]TfejrtbNFFRCLBNJSQT0896-45-10 01:19:00 Test Item Value Reference Range Interpretation Comments Sodium Lvl (test code = Sodium Lvl) 137 135-145 [facility] HospitalNmryrmxXAZJMYKNLQHM9158-77-49 01:19:00 Test Item Value Reference Range Interpretation Comments CO2 (test code = CO2) 24 24-32 [facility] HospitalSifuucyKINWRSZOHWXC1973-68-04 01:19:00 Test Item Value Reference Range Interpretation Comments Creatinine Lvl (test code = Creatinine 1.00 0.50-1.40 Lvl) [facility] HospitalBdlnffvLTAEOSCITBSZ2852-52-62 01:19:00 Test Item Value Reference Range Interpretation Comments Chloride Lvl (test code = Chloride Lvl) 104 95-109 [facility] HospitalMrlzwyyPIZPMRXSXMWO5145-64-92 01:19:00 Test Item Value Reference Range Interpretation Comments BUN (test code = BUN) 05-24 [facility]SwsagaeKCWKMEPAOA1475-77-81 01:19:00 Test Item Value Reference Range Interpretation Comments PTT (test code = PTT) 38.7 s 22.9-35.8 [facility] HospitalJknbvblYNABIYOGCBDX4757-42-66 01:19:00 Test Item Value Reference Range Interpretation Comments Calcium Lvl (test code = Calcium Lvl) 8.6 8.5-10.5 [facility] HospitalBfvoupmEKHJZKINNR9047-76-10 01:19:00 Test Item Value Reference Range Interpretation Comments MPV (test code = MPV) 6.9 7.4-10.4 [facility] HospitalIbbatyeWEHJTAPKNAED1135-36-56 01:19:00 Test Item Value Reference Range Interpretation Comments CO2 (test code = CO2) 24 24-32 [facility] HospitalKjrsntgSFUEXGZNOU7350-17-78 01:19:00 Test Item Value Reference Range Interpretation Comments WBC (test code = WBC) 6.5 3.7-10.4 [facility] HospitalLrpzbldWXOZDZGPBYQZ0038-62-35 01:19:00 Test Item Value Reference Range Interpretation Comments Chloride Lvl (test code = Chloride Lvl) 104 95-109 [facility] HospitalBqoeyzsVURADOZOYQ2867-69-69 01:19:00 Test Item Value Reference Range Interpretation Comments RDW (test code = RDW) 25.2 11.5-14.5 [facility] HospitalHcnqzhlELQKZJBKIX4734-47-92 01:19:00 Test Item Value Reference Range Interpretation Comments PTT (test code = PTT) 38.7 s 22.9-35.8 [facility] HospitalSmcimqiGOJIZTPJIK6611-20-01 01:19:00 Test Item Value Reference Range Interpretation Comments MCV (test code = MCV) 69.4 80.0-98.0 [facility] HospitalEthekijDYUAIEHEPN9670-89-85 01:19:00 Test Item Value Reference Range Interpretation Comments MPV (test code = MPV) 6.9 7.4-10.4 [facility] HospitalElrvwgwCGTGWZRLTT2675-35-47 01:19:00 Test Item Value Reference Range Interpretation Comments MCH (test code = MCH) 20.4 pg 27.0-31.0 [facility] HospitalEqiionmODZEAAJJAE3287-44-81 01:19:00 Test Item Value Reference Range Interpretation Comments WBC (test code = WBC) 6.5 3.7-10.4 [facility] HospitalLyprcwlROAOVYLTXL4326-80-60 01:19:00 Test Item Value Reference Range Interpretation Comments Hct (test code = Hct) 24.3 36.0-48.0 [facility] HospitalChpooitAJNWQOQBNU2127-67-59 01:19:00 Test Item Value Reference Range Interpretation Comments RDW (test code = RDW) 25.2 11.5-14.5 [facility] HospitalHdenqaiSBVILMGXKF6634-24-11 01:19:00 Test Item Value Reference Range Interpretation Comments RBC (test code = RBC) 3.51 4.20-5.40 [facility] HospitalFfmjyviMRZJSNDFJV9075-91-21 01:19:00 Test Item Value Reference Range Interpretation Comments MCV (test code = MCV) 69.4 80.0-98.0 [facility] HospitalXssiifdQRMYFTVHHB7525-57-75 01:19:00 Test Item Value Reference Range Interpretation Comments Hgb (test code = Hgb) 7.2 12.0-16.0 [facility] HospitalLecqbdnIWZLZBXSGZ8594-40-16 01:19:00 Test Item Value Reference Range Interpretation Comments MCH (test code = MCH) 20.4 pg 27.0-31.0 [facility] HospitalIzcfbicLELHNXTJPS5465-45-16 01:19:00 Test Item Value Reference Range Interpretation Comments Platelet (test code = Platelet) 298 133-450 [facility] HospitalRajbrhbFNAPJRUMYE2684-30-19 01:19:00 Test Item Value Reference Range Interpretation Comments Hct (test code = Hct) 24.3 36.0-48.0 [facility] HospitalDcqwsbiKTDKOEIYQW7769-39-68 01:19:00 Test Item Value Reference Range Interpretation Comments MCHC (test code = MCHC) 29.5 32.0-36.0 [facility] HospitalZxpaiseTHRAEDTQZX6093-95-92 01:19:00 Test Item Value Reference Range Interpretation Comments RBC (test code = RBC) 3.51 4.20-5.40 [facility] HospitalUsuaysqTWQZKCWVGJ1663-45-93 01:19:00 Test Item Value Reference Range Interpretation Comments INR (test code = INR) 0.92 0.85-1.17 [facility] HospitalGtqhdkhWPIMWMDNTN1594-43-84 01:19:00 Test Item Value Reference Range Interpretation Comments Hgb (test code = Hgb) 7.2 12.0-16.0 [facility] HospitalEgpfobnXUZTIXKKOI4625-57-40 01:19:00 Test Item Value Reference Range Interpretation Comments Platelet (test code = Platelet) 298 133-450 [facility] HospitalUxjydvoPFPHOHTWXV7614-42-97 01:19:00 Test Item Value Reference Range Interpretation Comments PT (test code = PT) 12.4 s 12.0-14.7 [facility] HospitalRdmkjajCSNCCWCQSW5748-96-99 01:19:00 Test Item Value Reference Range Interpretation Comments MCHC (test code = MCHC) 29.5 32.0-36.0 [facility] HospitalJmbtkleESYEFFMOII8201-86-02 01:19:00 Test Item Value Reference Range Interpretation Comments Segs-Bands # (test code = Segs-Bands #) 4.8 1.5-8.1 [facility] HospitalBhjcegbNOZKNNTHFO6679-58-72 01:19:00 Test Item Value Reference Range Interpretation Comments INR (test code = INR) 0.92 0.85-1.17 [facility] HospitalKmlwsttOUDISFPVJL2162-27-68 01:19:00 Test Item Value Reference Range Interpretation Comments Lymphocytes # (test code = Lymphocytes 0.9 1.0-5.5 #) [facility] HospitalObagmfpTRKFFWTFEE2983-26-14 01:19:00 Test Item Value Reference Range Interpretation Comments PT (test code = PT) 12.4 s 12.0-14.7 [facility] HospitalEzpkcgnHQJATPYDSL5017-22-80 01:19:00 Test Item Value Reference Range Interpretation Comments Monocytes # (test code 0.6 See_Comment [Aut omated message] The = Monocytes #) system which generated this result tra nsmitted reference range : <=0.8. The reference r pascual was not used to int erpret this result as normal/abnormal . [facility] HospitalMmxwxytWVHBVUSCPG3336-85-47 01:19:00 Test Item Value Reference Range Interpretation Comments Segs-Bands # (test code = Segs-Bands #) 4.8 1.5-8.1 [facility] HospitalWunrxsdSXCUBITQNJ8739-08-27 01:19:00 Test Item Value Reference Range Interpretation Comments Hypochrom (test code = 1+ (09/06/17 8:19 PM) Hypochrom) [facility] HospitalIibfxqyHKKGLUNNZX5396-48-15 01:19:00 Test Item Value Reference Range Interpretation Comments Lymphocytes # (test code = Lymphocytes 0.9 1.0-5.5 #) [facility] HospitalUfbyoehTTSNTNWFMR2060-32-64 01:19:00 Test Item Value Reference Range Interpretation Comments Anisocyte (test code = 1+ *ABN*(09/06/17 Anisocyte) 8:19 PM) [facility] HospitalDwuminaBJVQKBIJUU0488-91-24 01:19:00 Test Item Value Reference Range Interpretation Comments Monocytes # (test code 0.6 See_Comment [Aut omated message] The = Monocytes #) system which generated this result tra nsmitted reference range : <=0.8. The reference r pascual was not used to int erpret this result as normal/abnormal . [facility] HospitalEsccjujPBRYUYKWYB8892-15-45 01:19:00 Test Item Value Reference Range Interpretation Comments Microcyte (test code = 2+ *ABN*(09/06/17 Microcyte) 8:19 PM) [facility] HospitalPdomaybBAMIKERXOI8899-23-82 01:19:00 Test Item Value Reference Range Interpretation Comments Hypochrom (test code = 1+ (09/06/17 8:19 PM) Hypochrom) [facility] HospitalTqxlrreEKAFVKAAXS6465-34-18 01:19:00 Test Item Value Reference Range Interpretation Comments Eosinophils # (test code 0.1 See_Comment [A utomated message] The = Eosinophils #) system [place] generated this result tra nsmitted reference range : <=0.5. The reference r pascual was not used to int erpret this result as normal/abnormal . [facility] HospitalKzifymaVOKWMDBLBL7127-16-01 01:19:00 Test Item Value Reference Range Interpretation Comments Anisocyte (test code = 1+ *ABN*(09/06/17 Anisocyte) 8:19 PM) [facility] HospitalWzpvdcpZCDUOZGURZ6160-84-87 01:19:00 Test Item Value Reference Range Interpretation Comments Segs (test code = Segs) 74.1 45.0-75.0 [facility] HospitalHszibvqPBIRAIFQSP9704-44-04 01:19:00 Test Item Value Reference Range Interpretation Comments Microcyte (test code = 2+ *ABN*(09/06/17 Microcyte) 8:19 PM) [facility] HospitalEuiateuFCLEKTGBBL5338-45-65 01:19:00 Test Item Value Reference Range Interpretation Comments Lymphocytes (test code = Lymphocytes) 13.9 20.0-40.0 [facility] HospitalVwbkofeHHZFCBSGDV5895-04-66 01:19:00 Test Item Value Reference Range Interpretation Comments Eosinophils # (test code 0.1 See_Comment [A utomated message] The = Eosinophils #) system [place] generated this result tra nsmitted reference range : <=0.5. The reference r pascual was not used to int erpret this result as normal/abnormal . [facility] HospitalEabolixTNQWXFLKQF3501-26-07 01:19:00 Test Item Value Reference Range Interpretation Comments Plt Morph (test code = Normal (09/06/17 8:19 Plt Morph) PM) [facility] HospitalGpyimwyRJSXILDZHO6700-11-18 01:19:00 Test Item Value Reference Range Interpretation Comments Segs (test code = Segs) 74.1 45.0-75.0 [facility] HospitalEwlhlujYPGGEEPAGJ5069-47-86 01:19:00 Test Item Value Reference Range Interpretation Comments Monocytes (test code = Monocytes) 9.1 2.0-12.0 [facility] HospitalRexwgchYHKQIYZKCZ7266-27-26 01:19:00 Test Item Value Reference Range Interpretation Comments Lymphocytes (test code = Lymphocytes) 13.9 20.0-40.0 [facility] HospitalDhvgsxvMPFJBFUYWS8803-21-90 01:19:00 Test Item Value Reference Range Interpretation Comments Eosinophils (test code = 2.3 See_Comment [A utomated message] The Eosinophils) system which ge nerated this result tra nsmitted reference range : <=4.0. The reference r pascual was not used to int erpret this result as normal/abnormal . [facility] HospitalSruulivRRNRWXKOBQ3742-89-86 01:19:00 Test Item Value Reference Range Interpretation Comments Plt Morph (test code = Normal (09/06/17 8:19 Plt Morph) PM) [facility] HospitalAjpindzBCOPZBEZQA6088-64-41 01:19:00 Test Item Value Reference Range Interpretation Comments Basophils (test code = 0.6 See_Comment [Aut omated message] The Basophils) system which ge nerated this result tra nsmitted reference range : <=1.0. The reference r pascual was not used to int erpret this result as normal/abnormal . [facility] HospitalVwikaolSCODXTBWHO6874-24-96 01:19:00 Test Item Value Reference Range Interpretation Comments Monocytes (test code = Monocytes) 9.1 2.0-12.0 [facility] HospitalTuimdsmCLJUFAGMBA9703-45-50 01:19:00 Test Item Value Reference Range Interpretation Comments Eosinophils (test code = 2.3 See_Comment [A utomated message] The Eosinophils) system which ge nerated this result tra nsmitted reference range : <=4.0. The reference r pascual was not used to int erpret this result as normal/abnormal . [facility] HospitalWsrcfwsCNYYJTJKLU8695-71-60 01:19:00 Test Item Value Reference Range Interpretation Comments Basophils (test code = 0.6 See_Comment [Aut omated message] The Basophils) system which ge nerated this result tra nsmitted reference range : <=1.0. The reference r pascual was not used to int erpret this result as normal/abnormal . [facility] ChxqnlsXNQTHJUPLMMJ3170-28-00 01:19:0012.8[facility]ELECTROLYTES 2017-[facility]-07 01:19:0059[facility] ZrvbsygLFARXTDKXAQB7607-59-37 01:19:0093[facility] WjhbggdGPOTZMLTWENJ9852-06-47 01:19:003.8[facility] VvihwwlZHOAJIFTYBZL3506-32-51 01:19:65508Znucaexk VxanpqqEJTGKIDNJXID0216-44-21 01:19:001.00[facility] LQIEDSJZCXEJ7557-55-08 01:19:0011[facility] KbiplqnEOIHEPRPMKJT7708-98-28 01:19:00 8.6[facility] JerruaqXJQIVNJEEQEC8077-35-06 01:19:0024[facility]annELECTROLYTES 2017-09-07 01:19:82913Dyhzaknn VlqxqdpHAOZEALXQG3449-57-12 01:19:00 Test Item Value Reference Range Interpretation Comments PTT (test code = PTT) 38.7 s 22.9-35.8 [facility] IzxkjrjMAMAOURBZQ3552-67-86 01:19:006.9[facility]annHEMATOLOGY 2017-09-07 01:19:006.5[facility] BcjposaXSTEIPNKAD7281-16-57 01:19:0025.2[facility] WmreudkEMGYFRLZGA2199-55-66 01:19:0069.4[facility] DhoziuoJDMQSBNHUA6761-45-49 01:19:00 Test Item Value Reference Range Interpretation Comments MCH (test code = MCH) 20.4 pg 27.0-31.0 [facility] RzrtewdAUCZIZRFVE1701-96-76 01:19:0024.3[facility]annHEMATOLOGY 2017-09-07 01:19:003.51[facility] ElxqwzvFRARNQXPHW5949-90-08 01:19:007.2[facility] EpxzsboLBOIQCLJKL7302-47-59 01:19:91444Uxkyhbmt RkknzbnPBTFDJYAWX0874-68-99 01:19:0029.5[facility] GhvgygpQWUGCGTOCC5786-21-51 01:19:000.92[facility] FRDLJHFQEE1787-03-74 01:19:00 Test Item Value Reference Range Interpretation Comments PT (test code = PT) 12.4 s 12.0-14.7 [facility] EybkujcCUGVDOQHYF0888-18-48 01:19:004.8[facility]HE[facility]OLOGY 2017-09-07 01:19:000.9[facility] IiyxtriEGFFSMHYMC3517-65-19 01:19:000.6[facility] GrbjfljTKXACNKFQC5427-54-90 01:19:001+ (09/06/17 8:19 PM)[facility] JIXYQUJRGN3528-26-51 01:19:001+ *ABN*(09/06/17 8:19 PM)[facility] 2017-09-07 01:19:002+ *ABN*(09/06/17 8:19 PM)[facility] PizcivaRWVBGRYPPU7412-66-43 01:19:000.1[facility] LutehhxSKYAUOBTCY0549-95-97 01:19:0074.1[facility] TLMWWJSZJT5787-60-41 01:19:0013.9[facility] BzwncovELYRGDVRLT8033-78-78 01:19:00 Normal (09/06/17 8:19 PM)[facility] MczznebYBYWEPZRUR2716-56-00 01:19:009.1[facility] DmslmvnEMSKTMBNAR0532-09-57 01:19:002.3[facility] GldemmwJANKYZBTPD3021-31-27 01:19:000.6[facility] EeruidvZAJBXATOGM0357-98-00 09:43:00 Test Item Value Reference Range Interpretation Comments MPV (test code = MPV) 7.3 7.4-10.4 [facility]GguglghBPXPDZNBEF2022-06-59 09:43:00 Test Item Value Reference Range Interpretation Comments MCV (test code = MCV) 86.9 80.0-98.0 [facility]lakeIyvofqyJGIOIDPDVE2943-25-28 09:43:00 Test Item Value Reference Range Interpretation Comments MCH (test code = MCH) 28.6 pg 27.0-31.0 [facility]lakeVfxmdncTVFCLPNBHS2718-21-43 09:43:00 Test Item Value Reference Range Interpretation Comments Platelet (test code = Platelet) 308 133-450 [facility] HospitalVqpiybnHDKDLWJHAB4603-66-37 09:43:00 Test Item Value Reference Range Interpretation Comments RDW (test code = RDW) 16.8 11.5-14.5 [facility] HospitalBqhnwweHEHRWAGGHN0422-56-88 09:43:00 Test Item Value Reference Range Interpretation Comments Hgb (test code = Hgb) 7.5 12.0-16.0 [facility] HospitalWkuzzuoOHTIPWFVLI1164-05-96 09:43:00 Test Item Value Reference Range Interpretation Comments RBC (test code = RBC) 2.63 4.20-5.40 [facility] HospitalWvlanrmDQSOFWFDQW8849-23-42 09:43:00 Test Item Value Reference Range Interpretation Comments Hct (test code = Hct) 22.9 36.0-48.0 [facility] HospitalCqxzeewGSGELUVIMO5597-83-68 09:43:00 Test Item Value Reference Range Interpretation Comments WBC (test code = WBC) 7.0 3.7-10.4 [facility] HospitalJsxopeaWQKPIEWWGR5174-67-70 09:43:00 Test Item Value Reference Range Interpretation Comments MCHC (test code = MCHC) 33.0 32.0-36.0 [facility] HospitalKyhpecwQWIZAAJGYK9497-15-67 09:43:00 Test Item Value Reference Range Interpretation Comments Eosinophils (test code = 0.1 See_Comment [A utomated message] The Eosinophils) system which ge nerated this result tra nsmitted reference range : <=4.0. The reference r pascual was not used to int erpret this result as normal/abnormal . [facility] HospitalWrhkqjuAZPUFAFMPN2075-42-48 09:43:00 Test Item Value Reference Range Interpretation Comments Segs-Bands # (test code = Segs-Bands #) 5.4 1.5-8.1 [facility] HospitalEqvjptlSRJIOMZQLJ2260-77-78 09:43:00 Test Item Value Reference Range Interpretation Comments Basophils (test code = 0.4 See_Comment [Aut omated message] The Basophils) system which ge nerated this result tra nsmitted reference range : <=1.0. The reference r pascual was not used to int erpret this result as normal/abnormal . [facility] HospitalKmcndabBVPUTGEKKT5426-44-78 09:43:00 Test Item Value Reference Range Interpretation Comments Monocytes # (test code 0.8 See_Comment [Aut omated message] The = Monocytes #) system which generated this result tra nsmitted reference range : <=0.8. The reference r pascual was not used to int erpret this result as normal/abnormal . [facility] HospitalBxdtakuNUBKENXNDP0464-08-21 09:43:00 Test Item Value Reference Range Interpretation Comments Lymphocytes # (test code = Lymphocytes 0.9 1.0-5.5 #) [facility] HospitalTwqruswUVDINRJEHH0792-47-38 09:43:00 Test Item Value Reference Range Interpretation Comments Lymphocytes (test code = Lymphocytes) 12.2 20.0-40.0 [facility] HospitalHgewitbKGEBAUNAIJ7799-12-64 09:43:00 Test Item Value Reference Range Interpretation Comments Monocytes (test code = Monocytes) 11.0 2.0-12.0 [facility] HospitalDzplaoiFNVXALYNDM8650-59-64 09:43:00 Test Item Value Reference Range Interpretation Comments Segs (test code = Segs) 76.3 45.0-75.0 [facility] HospitalXpavjmwNNLEYGOSJS3613-73-60 09:43:00 Test Item Value Reference Range Interpretation Comments MPV (test code = MPV) 7.3 7.4-10.4 [facility] HospitalNuubguzSNRGSFDCAG5930-68-29 09:43:00 Test Item Value Reference Range Interpretation Comments MCV (test code = MCV) 86.9 80.0-98.0 [facility] HospitalLyamzriRGTGIFKVXP4869-58-58 09:43:00 Test Item Value Reference Range Interpretation Comments MCH (test code = MCH) 28.6 pg 27.0-31.0 [facility] HospitalDkvsfwfHQDEEEFQYD3815-45-05 09:43:00 Test Item Value Reference Range Interpretation Comments Platelet (test code = Platelet) 308 133-450 [facility] HospitalFnjbzfdAEFVSEOKQN1908-67-40 09:43:00 Test Item Value Reference Range Interpretation Comments RDW (test code = RDW) 16.8 11.5-14.5 [facility] HospitalUtqguzkECDRREADKA4806-16-03 09:43:00 Test Item Value Reference Range Interpretation Comments Hgb (test code = Hgb) 7.5 12.0-16.0 [facility] HospitalJkgjbqaDFQALIXZIT2930-02-71 09:43:00 Test Item Value Reference Range Interpretation Comments RBC (test code = RBC) 2.63 4.20-5.40 [facility] HospitalRmxvfmsOAQJZQZLCI5911-34-04 09:43:00 Test Item Value Reference Range Interpretation Comments Hct (test code = Hct) 22.9 36.0-48.0 [facility] HospitalHvegmaxUCJBRTJBNF6871-15-65 09:43:00 Test Item Value Reference Range Interpretation Comments WBC (test code = WBC) 7.0 3.7-10.4 [facility] HospitalJrqcurdYVTDVRKWOQ6115-90-64 09:43:00 Test Item Value Reference Range Interpretation Comments MCHC (test code = MCHC) 33.0 32.0-36.0 [facility] HospitalPijjahyUNRGXBVRZX6366-53-60 09:43:00 Test Item Value Reference Range Interpretation Comments Eosinophils (test code = 0.1 See_Comment [A utomated message] The Eosinophils) system which ge nerated this result tra nsmitted reference range : <=4.0. The reference r pascual was not used to int erpret this result as normal/abnormal . [facility] HospitalEqqaeihXJRAWKXSKG8256-19-57 09:43:00 Test Item Value Reference Range Interpretation Comments Segs-Bands # (test code = Segs-Bands #) 5.4 1.5-8.1 [facility] HospitalTcrlfnwXFRUJGXRAC7654-04-93 09:43:00 Test Item Value Reference Range Interpretation Comments Basophils (test code = 0.4 See_Comment [Aut omated message] The Basophils) system which ge nerated this result tra nsmitted reference range : <=1.0. The reference r pascual was not used to int erpret this result as normal/abnormal . [facility] HospitalShsagnqBQRTPJIDKO0326-36-49 09:43:00 Test Item Value Reference Range Interpretation Comments Monocytes # (test code 0.8 See_Comment [Aut omated message] The = Monocytes #) system which generated this result tra nsmitted reference range : <=0.8. The reference r pascual was not used to int erpret this result as normal/abnormal . [facility] HospitalStbqmipIEGDEKXGYE9210-46-43 09:43:00 Test Item Value Reference Range Interpretation Comments Lymphocytes # (test code = Lymphocytes 0.9 1.0-5.5 #) [facility] HospitalTkowvdrVOGXMLEAFZ5536-71-36 09:43:00 Test Item Value Reference Range Interpretation Comments Lymphocytes (test code = Lymphocytes) 12.2 20.0-40.0 [facility] HospitalIcnseyjZKGQOJSHFW9082-36-66 09:43:00 Test Item Value Reference Range Interpretation Comments Monocytes (test code = Monocytes) 11.0 2.0-12.0 [facility] LscjlrlSTKMKAVZLG1962-40-49 09:43:00 Test Item Value Reference Range Interpretation Comments Segs (test code = Segs) 76.3 45.0-75.0 [facility] CqahkctSCQUXYORUX3736-51-05 09:43:007.3[facility] 2017-01-31 09:43:0086.9[facility] GycxjapNIHSRTPOHW4996-61-77 09:43:00 Test Item Value Reference Range Interpretation Comments MCH (test code = MCH) 28.6 pg 27.0-31.0 [facility] KdzpfesZBEJYWJXYC5565-82-84 09:43:61218Pbhvqorv HermannHEMATOLOGY 2017-01-31 09:43:0016.8[facility] PlnhvzzEODVPQNJUK3398-53-38 09:43:007.5[facility] HrgyclrWLAAVVKUQH9433-68-96 09:43:002.63[facility] EjzxagwLVTLYZHSOJ6130-14-16 09:43:0022.9[facility] BprdhzuSAETZBAINR8335-24-84 09:43:007.0[facility] CPVIRWOPID1486-28-41 09:43:0033.0[facility] KxehvoyPHKCANDOKA4645-93-25 09:43:00 0.1[facility] JokxwgiFCYVAXOKCE6560-95-59 09:43:005.4[facility]HE[facility] 2017-01-31 09:43:000.4[facility] IpbjxpvHNKIAWYWTG3419-73-39 09:43:000.8[facility] RmwxyimAYUEZNJQTE4064-58-98 09:43:000.9[facility] LtesfpvTCSEJIVYFZ4684-19-23 09:43:0012.2[facility] OkvvgbdSXLCSKAQKY0876-69-71 09:43:0011.0[facility] MJICRCVBCF9610-74-45 09:43:0076.3[facility] WjrxzpyULFQAYMSRV5381-04-00 09:43:00 7.3[facility] FvpmhvyWYPIHXGIIV7109-36-96 09:43:0086.9[facility]HE[facility] 2017-01-31 09:43:00 Test Item Value Reference Range Interpretation Comments MCH (test code = MCH) 28.6 pg 27.0-31.0 [facility] MusveakWIZKBZDDVV4535-33-81 09:43:87108Iuymdssg [facility]annHEMATOLOGY 2017-01-31 09:43:0016.8[facility] KsbzhizRXFBGSIEVA6267-08-04 09:43:007.5[facility] PjvgulqOMKGNJJRFL9141-48-47 09:43:002.63[facility] UwchyklRUNBQJZFMA6638-69-74 09:43:0022.9[facility] RprczuoYESVIRBDBN3669-55-56 09:43:007.0[facility] WHGUDQRMDL6881-70-77 09:43:0033.0[facility] MherwlcFRNRJQVHKW0025-68-53 09:43:00 0.1[facility] KxhdalqMIVROBXPRX9882-29-94 09:43:005.4[facility]HE[facility] 2017-01-31 09:43:000.4[facility] CvwxrtxCFKGXYXIRA8457-75-71 09:43:000.8[facility] BbbdjyaGQQBQDXIVM7166-74-96 09:43:000.9[facility] DudyzahVYCOTDHCCI6692-89-94 09:43:0012.2[facility] OxmtxqoZJVDMPSZRV2443-94-01 09:43:0011.0[facility] SUUVRGRYEJ8841-91-90 09:43:0076.3[facility] PomxrrnBAZNNKNOMY6091-18-58 09:43:00 7.3[facility] KgzeqhtARNTSUGZQM6298-57-43 09:43:0086.9[facility]HE[facility] 2017-01-31 09:43:00 Test Item Value Reference Range Interpretation Comments MCH (test code = MCH) 28.6 pg 27.0-31.0 [facility] ClzxsscIOQFETPTZS1372-12-90 09:43:10432Dpngsrrv [facility]annHEMATOLOGY 2017-01-31 09:43:0016.8[facility] UyqhjitVOBWSSHNGC4410-30-87 09:43:007.5[facility] FsbfnobFHVGFKHEXZ8372-65-59 09:43:002.63[facility] SiqvvnpEDRLMFTKRH1497-14-90 09:43:0022.9[facility] YaaiburMDABXXTQKG8520-91-03 09:43:007.0[facility] WWTMIQKLLT2834-72-29 09:43:0033.0[facility] DuowebqNHHDYIHLWO1456-11-27 09:43:00 0.1[facility] EpsnxtcFPJFHXLCCG2499-00-15 09:43:005.4[facility] HermannHEMATOLOGY 2017-01-31 09:43:000.4[facility] FmqonorFKIGKZDZYY6172-14-21 09:43:000.8[facility] TldkdybDXOIVMXCPK8358-38-23 09:43:000.9[facility] ScctjuuYCUVISOZOP5563-08-40 09:43:0012.2[facility] PltjqtqZMAVDXTQUN5248-16-77 09:43:0011.0[facility] BKRIRGFPVA8797-92-82 09:43:0076.3[facility] JvnxwbcXRYYRORFHM9959-88-03 09:43:00 Test Item Value Reference Range Interpretation Comments MPV (test code = MPV) 7.3 7.4-10.4 [facility] DistrictGmywapoAIWFJVAUIW2432-11-63 09:43:00 Test Item Value Reference Range Interpretation Comments MCV (test code = MCV) 86.9 80.0-98.0 [facility] DistrictBnbsvzoHOLDMJZTCR6655-82-69 09:43:00 Test Item Value Reference Range Interpretation Comments MCH (test code = MCH) 28.6 pg 27.0-31.0 [facility]lakeZymtoucDIUJDIOBPK8008-39-05 09:43:00 Test Item Value Reference Range Interpretation Comments MPV (test code = MPV) 7.3 7.4-10.4 [facility]lakeRtcmbooFSKDDHZGJA8644-06-45 09:43:00 Test Item Value Reference Range Interpretation Comments Platelet (test code = Platelet) 308 133-450 [facility] DistrictWublfmjSWVIFANWEW5371-50-83 09:43:00 Test Item Value Reference Range Interpretation Comments MCV (test code = MCV) 86.9 80.0-98.0 [facility] NjdcqzdMOMBDHXRYS3894-14-21 09:43:00 Test Item Value Reference Range Interpretation Comments RDW (test code = RDW) 16.8 11.5-14.5 [facility]XaldeknZZWKSSKCHR2607-70-50 09:43:00 Test Item Value Reference Range Interpretation Comments MCH (test code = MCH) 28.6 pg 27.0-31.0 [facility] HospitalBdfxyulPAEBDROMHJ4861-89-21 09:43:00 Test Item Value Reference Range Interpretation Comments Hgb (test code = Hgb) 7.5 12.0-16.0 [facility] HospitalHxkyrwdVQWGHKPNTX9487-01-00 09:43:00 Test Item Value Reference Range Interpretation Comments Platelet (test code = Platelet) 308 133-450 [facility] HospitalJezwzcbDDRACKFYMH5606-22-52 09:43:00 Test Item Value Reference Range Interpretation Comments RBC (test code = RBC) 2.63 4.20-5.40 [facility] HospitalRpcwpybLSVOEZVSYM3451-12-84 09:43:00 Test Item Value Reference Range Interpretation Comments RDW (test code = RDW) 16.8 11.5-14.5 [facility] HospitalIhbbmfrLDIYUNVXOZ8479-39-18 09:43:00 Test Item Value Reference Range Interpretation Comments Hct (test code = Hct) 22.9 36.0-48.0 [facility] HospitalHztdfchFUKEYVYTTG5698-92-16 09:43:00 Test Item Value Reference Range Interpretation Comments Hgb (test code = Hgb) 7.5 12.0-16.0 [facility] HospitalIipagtcEGSLARJTRM0589-47-30 09:43:00 Test Item Value Reference Range Interpretation Comments WBC (test code = WBC) 7.0 3.7-10.4 [facility] HospitalOezqthbBKKUBNGJVN9466-90-94 09:43:00 Test Item Value Reference Range Interpretation Comments RBC (test code = RBC) 2.63 4.20-5.40 [facility] HospitalOqwnevqHWRRKSSVRA9262-74-45 09:43:00 Test Item Value Reference Range Interpretation Comments MCHC (test code = MCHC) 33.0 32.0-36.0 [facility] HospitalSkogcskHNLWSZCFRD1544-35-44 09:43:00 Test Item Value Reference Range Interpretation Comments Hct (test code = Hct) 22.9 36.0-48.0 [facility] HospitalIbzcfjeMVOVBRXUMX4917-07-61 09:43:00 Test Item Value Reference Range Interpretation Comments Eosinophils (test code = 0.1 See_Comment [A utomated message] The Eosinophils) system which ge nerated this result tra nsmitted reference range : <=4.0. The reference r pascual was not used to int erpret this result as normal/abnormal . [facility] HospitalLlsfpsgEEQFWFELVC8892-09-04 09:43:00 Test Item Value Reference Range Interpretation Comments WBC (test code = WBC) 7.0 3.7-10.4 [facility] HospitalKvsmytvKORFDHGGCZ9823-45-53 09:43:00 Test Item Value Reference Range Interpretation Comments Segs-Bands # (test code = Segs-Bands #) 5.4 1.5-8.1 [facility] HospitalLuxfqurZVPONLTDXH9329-59-12 09:43:00 Test Item Value Reference Range Interpretation Comments MCHC (test code = MCHC) 33.0 32.0-36.0 [facility] HospitalNmuiwdoETRRVFMUCQ0272-49-73 09:43:00 Test Item Value Reference Range Interpretation Comments Basophils (test code = 0.4 See_Comment [Aut omated message] The Basophils) system which ge nerated this result tra nsmitted reference range : <=1.0. The reference r pascual was not used to int erpret this result as normal/abnormal . [facility] HospitalXpjzncgFIWTTZHPPV2697-08-87 09:43:00 Test Item Value Reference Range Interpretation Comments Eosinophils (test code = 0.1 See_Comment [A utomated message] The Eosinophils) system which ge nerated this result tra nsmitted reference range : <=4.0. The reference r pascual was not used to int erpret this result as normal/abnormal . [facility] HospitalUfpnpzgKVNLGXXZKO7967-33-65 09:43:00 Test Item Value Reference Range Interpretation Comments Monocytes # (test code 0.8 See_Comment [Aut omated message] The = Monocytes #) system which generated this result tra nsmitted reference range : <=0.8. The reference r pascual was not used to int erpret this result as normal/abnormal . [facility] HospitalFuwprjrQYDOAVDDIU4534-47-38 09:43:00 Test Item Value Reference Range Interpretation Comments Segs-Bands # (test code = Segs-Bands #) 5.4 1.5-8.1 [facility] HospitalBneyqncRWMEOQRNMG8958-51-12 09:43:00 Test Item Value Reference Range Interpretation Comments Lymphocytes # (test code = Lymphocytes 0.9 1.0-5.5 #) [facility] HospitalUoprizvGWRUBKTQOJ7669-02-64 09:43:00 Test Item Value Reference Range Interpretation Comments Basophils (test code = 0.4 See_Comment [Aut omated message] The Basophils) system which ge nerated this result tra nsmitted reference range : <=1.0. The reference r pascual was not used to int erpret this result as normal/abnormal . [facility] HospitalSirupmfEHIJUVZCFU0002-02-20 09:43:00 Test Item Value Reference Range Interpretation Comments Lymphocytes (test code = Lymphocytes) 12.2 20.0-40.0 [facility] HospitalLlqedcwNYFRWIPFSW6432-78-32 09:43:00 Test Item Value Reference Range Interpretation Comments Monocytes # (test code 0.8 See_Comment [Aut omated message] The = Monocytes #) system which generated this result tra nsmitted reference range : <=0.8. The reference r pascual was not used to int erpret this result as normal/abnormal . [facility] HospitalNhgmhtzHZGIMIMESR2345-86-34 09:43:00 Test Item Value Reference Range Interpretation Comments Monocytes (test code = Monocytes) 11.0 2.0-12.0 [facility] HospitalOjxfjakUBIIXCPRQV5624-08-05 09:43:00 Test Item Value Reference Range Interpretation Comments Lymphocytes # (test code = Lymphocytes 0.9 1.0-5.5 #) [facility] HospitalLsudvevYRUIGKRHWI3402-03-42 09:43:00 Test Item Value Reference Range Interpretation Comments Segs (test code = Segs) 76.3 45.0-75.0 [facility] HospitalGymahsiEOGHTTAXIP9372-81-50 09:43:00 Test Item Value Reference Range Interpretation Comments Lymphocytes (test code = Lymphocytes) 12.2 20.0-40.0 [facility] HospitalZtwculkCANDPHKVLU6107-84-89 09:43:00 Test Item Value Reference Range Interpretation Comments Monocytes (test code = Monocytes) 11.0 2.0-12.0 [facility] HospitalRmhmqkxJBMHRMOTIC9742-09-85 09:43:00 Test Item Value Reference Range Interpretation Comments Segs (test code = Segs) 76.3 45.0-75.0 [facility] HospitalMqnuqypNSZJVHHBGM8422-21-00 09:43:007.3[facility] 09:43:0086.9[facility] JlsvrucBZJNLVOGIT5388-90-76 09:43:00 Test Item Value Reference Range Interpretation Comments MCH (test code = MCH) 28.6 pg 27.0-31.0 [facility] IejfpwqVUIZLVYBYX8173-88-04 09:43:38567Uxxicvqa [facility] 2017-01-31 09:43:0016.8[facility] TgktrseUIRRBGXVBX1841-26-02 09:43:007.5[facility] ZesiecnILOWTUKMZB7498-34-11 09:43:002.63[facility] UnipqwzMENUWLLEJD6922-39-42 09:43:0022.9[facility] EfrlqucPGTHERCQMA5991-38-71 09:43:007.0[facility] S[facility]il YWZBCTTEOO7209-65-05 09:43:0033.0[facility] RuynazlUHKWEAQBZA1409-45-76 09:43:00 0.1[facility] WzwmldzQGEZWRQRSW7836-97-04 09:43:005.4[facility] 2017-01-31 09:43:000.4[facility] NbgsoixEBSHZIHEFQ0107-18-00 09:43:000.8[facility] KjpfeqvIPQTJHHOLZ7961-76-71 09:43:000.9[facility] LmjovfqFPQIHJJZPF9050-92-41 09:43:0012.2[facility] CajdhguZIPYBZMCJO1466-60-00 09:43:0011.0[facility] RELMCAPAGD3781-19-01 09:43:0076.3[facility] DiqxnxqIWLGFIIJWYMH7432-98-18 09:32:00 Test Item Value Reference Range Interpretation Comments AGAP (test code = AGAP) 16.1 10.0-20.0 [facility]lakeWgjueknIDSNKWRADVOX1890-77-52 09:32:00 Test Item Value Reference Range Interpretation Comments eGFR (test code = eGFR) 52 [facility]lakeQolnhtlDJGBQMSZKCPE5063-72-67 09:32:00 Test Item Value Reference Range Interpretation Comments Chloride Lvl (test code = Chloride Lvl) 105 95-109 [facility]lakePxnvltnSABPKSESUJNF2220-73-88 09:32:00 Test Item Value Reference Range Interpretation Comments BUN (test code = BUN) 10 7-22 [facility] HospitalHbgebvlLMVWUSCBUHAD6104-96-60 09:32:00 Test Item Value Reference Range Interpretation Comments Creatinine Lvl (test code = Creatinine 1.10 0.50-1.40 Lvl) [facility] HospitalWfyykwgMOIIGGRHNVDB4538-06-44 09:32:00 Test Item Value Reference Range Interpretation Comments Glucose Lvl (test code = Glucose Lvl) 108 70-99 [facility] HospitalWydssvvBSNCDXSACDXT6907-56-03 09:32:00 Test Item Value Reference Range Interpretation Comments Calcium Lvl (test code = Calcium Lvl) 8.3 8.5-10.5 [facility] HospitalOrqqhosYAZHQZPKTVXQ0294-86-76 09:32:00 Test Item Value Reference Range Interpretation Comments CO2 (test code = CO2) 26 24-32 [facility] HospitalBgflaxjDNIRTYYKJCWQ7517-18-75 09:32:00 Test Item Value Reference Range Interpretation Comments Potassium Lvl (test code = Potassium 4.1 3.5-5.1 Lvl) [facility] HospitalOlixqzgXIZAYLYNVBUC5120-75-56 09:32:00 Test Item Value Reference Range Interpretation Comments Sodium Lvl (test code = Sodium Lvl) 143 135-145 [facility] HospitalWmdepanCGHBZBZIHJ4082-49-75 09:32:00 Test Item Value Reference Range Interpretation Comments RDW (test code = RDW) 17.3 11.5-14.5 [facility] HospitalVisrmbmIGYUOLOMNF4599-95-47 09:32:00 Test Item Value Reference Range Interpretation Comments MCHC (test code = MCHC) 33.4 32.0-36.0 [facility] HospitalJglpahiEUTHIXAJET7185-18-70 09:32:00 Test Item Value Reference Range Interpretation Comments Platelet (test code = Platelet) 350 133-450 [facility] HospitalJuvezhyQOWCDHKXNV6765-36-58 09:32:00 Test Item Value Reference Range Interpretation Comments MPV (test code = MPV) 7.4 7.4-10.4 [facility] HospitalEkixofeVZTDXAHUNH8588-83-95 09:32:00 Test Item Value Reference Range Interpretation Comments MCV (test code = MCV) 86.2 80.0-98.0 [facility] HospitalAyiipncKZVBNYLQFK6518-88-90 09:32:00 Test Item Value Reference Range Interpretation Comments Hct (test code = Hct) 23.2 36.0-48.0 [facility] HospitalFlrrnpxYXCZFGKFLD3149-72-72 09:32:00 Test Item Value Reference Range Interpretation Comments MCH (test code = MCH) 28.7 pg 27.0-31.0 [facility] HospitalXfihglhZOKOUPOFHB3199-90-53 09:32:00 Test Item Value Reference Range Interpretation Comments Hgb (test code = Hgb) 7.7 12.0-16.0 [facility] HospitalRrhaxvgTVUSPVDEKM7833-74-85 09:32:00 Test Item Value Reference Range Interpretation Comments RBC (test code = RBC) 2.69 4.20-5.40 [facility] HospitalUheyfmoSXGEKOBTBN4611-83-42 09:32:00 Test Item Value Reference Range Interpretation Comments WBC (test code = WBC) 9.4 3.7-10.4 [facility] HospitalEgfqoykAKXCXWGZTZ7595-60-55 09:32:00 Test Item Value Reference Range Interpretation Comments Lymphocytes # (test code = Lymphocytes 0.9 1.0-5.5 #) [facility] HospitalPdbeplpLHTAFSKKAC5724-03-08 09:32:00 Test Item Value Reference Range Interpretation Comments Monocytes # (test code 0.9 See_Comment [Aut omated message] The = Monocytes #) system which generated this result tra nsmitted reference range : <=0.8. The reference r pascual was not used to int erpret this result as normal/abnormal . [facility] HospitalXiwvqtgAIVOTJWGJT2829-69-40 09:32:00 Test Item Value Reference Range Interpretation Comments Basophils (test code = 0.4 See_Comment [Aut omated message] The Basophils) system which ge nerated this result tra nsmitted reference range : <=1.0. The reference r pascual was not used to int erpret this result as normal/abnormal . [facility] HospitalSmbpopwVFAONBRCFF9855-11-48 09:32:00 Test Item Value Reference Range Interpretation Comments Segs-Bands # (test code = Segs-Bands #) 7.6 1.5-8.1 [facility] HospitalEyywrfrZOFAMTNZDS6789-34-34 09:32:00 Test Item Value Reference Range Interpretation Comments Lymphocytes (test code = Lymphocytes) 9.3 20.0-40.0 [facility] HospitalUlkoosfLXORHNNUFE7920-65-94 09:32:00 Test Item Value Reference Range Interpretation Comments Segs (test code = Segs) 80.7 45.0-75.0 [facility] HospitalTghttocYAZJIFOQQR2989-89-15 09:32:00 Test Item Value Reference Range Interpretation Comments Monocytes (test code = Monocytes) 9.6 2.0-12.0 [facility] HospitalFtvuedmPKLRKZDYTWUK0724-09-76 09:32:00 Test Item Value Reference Range Interpretation Comments AGAP (test code = AGAP) 16.1 10.0-20.0 [facility] HospitalBbfcyzjUKJAEQSGQMBV6210-66-19 09:32:00 Test Item Value Reference Range Interpretation Comments eGFR (test code = eGFR) 52 [facility] HospitalXyqxkukFNHUGYFOOICK8328-47-93 09:32:00 Test Item Value Reference Range Interpretation Comments Chloride Lvl (test code = Chloride Lvl) 105 95-109 [facility] HospitalEolahtbACQPJHLNEZVZ6531-73-17 09:32:00 Test Item Value Reference Range Interpretation Comments BUN (test code = BUN) 10 7-22 [facility] HospitalKbokhklJCNRFUIIAUVO4712-78-39 09:32:00 Test Item Value Reference Range Interpretation Comments Creatinine Lvl (test code = Creatinine 1.10 0.50-1.40 Lvl) [facility] HospitalObulrwmETOORQMQALTP1939-13-18 09:32:00 Test Item Value Reference Range Interpretation Comments Glucose Lvl (test code = Glucose Lvl) 108 70-99 [facility] HospitalCzqnqpxDLPGUZKXVWFJ0988-04-92 09:32:00 Test Item Value Reference Range Interpretation Comments Calcium Lvl (test code = Calcium Lvl) 8.3 8.5-10.5 [facility] HospitalNthymyaJGMSZHPHMMIM4258-77-89 09:32:00 Test Item Value Reference Range Interpretation Comments CO2 (test code = CO2) 26 24-32 [facility] HospitalSmaqrdcRCKHPFSZJICD9560-04-81 09:32:00 Test Item Value Reference Range Interpretation Comments Potassium Lvl (test code = Potassium 4.1 3.5-5.1 Lvl) [facility] HospitalNhupjcrYPPNUFENBDXO8909-49-64 09:32:00 Test Item Value Reference Range Interpretation Comments Sodium Lvl (test code = Sodium Lvl) 143 135-145 [facility] HospitalYjaolesMPSLKAJCWX6172-87-38 09:32:00 Test Item Value Reference Range Interpretation Comments RDW (test code = RDW) 17.3 11.5-14.5 [facility] HospitalTfvvaltYBTOATBSRI4377-43-47 09:32:00 Test Item Value Reference Range Interpretation Comments MCHC (test code = MCHC) 33.4 32.0-36.0 [facility] HospitalAgkuvwgCJLNHOQDBK7285-26-54 09:32:00 Test Item Value Reference Range Interpretation Comments Platelet (test code = Platelet) 350 133-450 [facility] HospitalGaagpvlIRYZZGYXZW9796-70-46 09:32:00 Test Item Value Reference Range Interpretation Comments MPV (test code = MPV) 7.4 7.4-10.4 [facility] HospitalJyjqyssHIQIPCVUCU8526-74-82 09:32:00 Test Item Value Reference Range Interpretation Comments MCV (test code = MCV) 86.2 80.0-98.0 [facility] HospitalOugevlwANCOWTDBWI9180-60-38 09:32:00 Test Item Value Reference Range Interpretation Comments Hct (test code = Hct) 23.2 36.0-48.0 [facility] HospitalTetxcnkTQKOXBSXHC8548-87-17 09:32:00 Test Item Value Reference Range Interpretation Comments MCH (test code = MCH) 28.7 pg 27.0-31.0 [facility] HospitalGspnpjsHSYVQLYTUC7999-08-56 09:32:00 Test Item Value Reference Range Interpretation Comments Hgb (test code = Hgb) 7.7 12.0-16.0 [facility] HospitalTukbckxHJJXEGSAHU8001-17-53 09:32:00 Test Item Value Reference Range Interpretation Comments RBC (test code = RBC) 2.69 4.20-5.40 [facility] HospitalUaqzjajLOTCYUSZEH7164-28-99 09:32:00 Test Item Value Reference Range Interpretation Comments WBC (test code = WBC) 9.4 3.7-10.4 [facility] HospitalYwzsfucSPHWCDVRRO1140-29-70 09:32:00 Test Item Value Reference Range Interpretation Comments Lymphocytes # (test code = Lymphocytes 0.9 1.0-5.5 #) [facility] HospitalKsgksolNKYUFIFKFG0837-86-69 09:32:00 Test Item Value Reference Range Interpretation Comments Monocytes # (test code 0.9 See_Comment [Aut omated message] The = Monocytes #) system which generated this result tra nsmitted reference range : <=0.8. The reference r pascual was not used to int erpret this result as normal/abnormal . [facility] HospitalIhagbqrNPTACRTOSO9065-37-23 09:32:00 Test Item Value Reference Range Interpretation Comments Basophils (test code = 0.4 See_Comment [Aut omated message] The Basophils) system which ge nerated this result tra nsmitted reference range : <=1.0. The reference r pascual was not used to int erpret this result as normal/abnormal . [facility]lakeQvnlcttBIHOJPZZAX0895-78-60 09:32:00 Test Item Value Reference Range Interpretation Comments Segs-Bands # (test code = Segs-Bands #) 7.6 1.5-8.1 [facility]MknvrhtGSMUZOWNXW4382-33-45 09:32:00 Test Item Value Reference Range Interpretation Comments Lymphocytes (test code = Lymphocytes) 9.3 20.0-40.0 [facility]lakeAqpxlhrNLZEZUNNIJ8538-45-89 09:32:00 Test Item Value Reference Range Interpretation Comments Segs (test code = Segs) 80.7 45.0-75.0 [facility]lakeXjqhtdsVMDASBGCTW8326-11-73 09:32:00 Test Item Value Reference Range Interpretation Comments Monocytes (test code = Monocytes) 9.6 2.0-12.0 [facility]lakeLrijhxiBWNCHRHZEPVE5695-48-03 09:32:0016.1[facility] 2017-[facility]-29 09:32:0052[facility] SiictfuVDWBWYBWGVBL0739-77-62 09:32:62598Jcbhggde UzsqbadXJUQYJGUGORH9822-75-33 09:32:0010[facility] NcxozlzUZZLWHVONIOJ3803-52-39 09:32:001.10[facility] AfkbinrBOBTHILGEHZI8523-20-23 09:32:64342Jpvscdby Sushil UOYMKHGDEMCD6969-45-80 09:32:008.3[facility] LkbpmdtHTPARYRLUAHZ2710-27-85 09:32:0026[facility] IwclvkfEEOKNERQWOZA8095-92-03 09:32:004.1[facility] OCIFUEXOBAQK0175-65-92 09:32:90139Ewduxweu ItyxmyaXSOYHKFWHA8764-37-05 09:32:00 17.3[facility] QsmpjriKZWNMNQFTQ5300-68-73 09:32:0033.4[facility]ann[facility]OLOG[facility] 2017-01-29 09:32:72207Ocjmfgvp QxziffkKRKDTQUKCW8856-04-47 09:32:007.4[facility] WlzjvqfYNUJCEIKZJ2259-43-63 09:32:0086.2[facility] VzpgttoVWJXYHBYZF2072-04-27 09:32:0023.2[facility] GmusnjgAWXWJOOWOA7724-39-54 09:32:00 Test Item Value Reference Range Interpretation Comments MCH (test code = MCH) 28.7 pg 27.0-31.0 [facility] MuqfkuyMYZYTOZMON0178-56-84 09:32:007.7[facility]HE[facility] 2017-01-29 09:32:002.69[facility] PhjyzcySUSVHXZWQD5907-73-11 09:32:009.4[facility] CcdjtxqNUWZRSMCYG9892-46-61 09:32:000.9[facility] QyujzehGHDMTZBQWY7973-24-37 09:32:000.9[facility] IbnuyyySHFZURLZGI3972-89-49 09:32:000.4[facility] QXAYDNFTJP8205-05-42 09:32:007.6[facility] GixvcwsOFLAUKKRMM6876-26-56 09:32:009.3 [facility] LfmocohEVHYFABYJV2538-83-15 09:32:0080.7[facility]ann[facility]OLOG[facility] 2017-01-29 09:32:009.6[facility] ScctdzrFOFXPLQNMIJO7165-62-94 09:32:0016.1 [facility] QwzkmhxOWJOGOPMSCMV6823-81-19 09:32:0052[facility]annELECTROLYTES 2017-01-29 09:32:94679Fnnvqtiu ZrycbbzFPOIEEEZHGAO1944-43-45 09:32:0010[facility] ZdtzhezEYRUVZTUQNMJ3330-33-38 09:32:001.10[facility] OicerjrIGZDMUPVCKTK9622-71-50 09:32:47059Zceknnqy BxgncmhPGRIHHIJHQRA8138-22-38 09:32:008.3[facility] TASLZZWDQJSJ1200-45-37 09:32:0026[facility] HhmrnspKWPBYXCUCZIU9620-13-87 09:32:00 4.1[facility] GhsfyqlVHBRFJHPTCBE2436-65-27 09:32:92939Atuocwog HermannHEMATOLOGY 2017-01-29 09:32:0017.3[facility] FeblnifYMJWFCYTMW7841-06-38 09:32:0033.4[facility] NzktinqQEPEVMRYLB9468-09-89 09:32:87136Ereesjxq SfxnsibVTVRNKVPTG2851-02-28 09:32:007.4[facility] CtlhawaKTHNTQNZOG3483-06-78 09:32:0086.2[facility] S[facility]il BEZQBPITAJ7099-07-59 09:32:0023.2[facility] MoednfaFUCMARBMQH6196-07-18 09:32:00 Test Item Value Reference Range Interpretation Comments MCH (test code = MCH) 28.7 pg 27.0-31.0 [facility] RgqwigxVJPUASOQQZ7118-29-34 09:32:007.7[facility]annHEMATOLOGY 2017-01-29 09:32:002.69[facility] TccybkiAXVYXZYNVU2519-99-57 09:32:009.4[facility] ZtcolldASLZJHCGOZ1258-57-60 09:32:000.9[facility] MgortooYRYLRMCOWJ4676-77-78 09:32:000.9[facility] PqxhwihSSWLATBXFZ9565-48-46 09:32:000.4[facility] Sushil TFONGAETLJ4241-83-07 09:32:007.6[facility] IvnnmlyECQRREQQUF2290-77-84 09:32:009.3 [facility] LlsycswVCVVLNQABQ1678-72-54 09:32:0080.7[facility]annHEMATOLOGY 2017-01-29 09:32:009.6[facility] DtjniabZPICAWVKEGPO0132-18-73 09:32:0016.1 [facility] YbrhwamOSPAWWLFEZGW3678-43-12 09:32:0052[facility]annELECTROLYTES 2017-01-29 09:32:94904Pvxnhjte QqtmidgJHJNACMDFKBT5031-33-64 09:32:0010[facility] FhoavkdYTGFRHNIAGOD4499-39-63 09:32:001.10[facility] TepgdelTOKVISXZBOGI7659-12-37 09:32:96449Pvhpvvio PwmdzefYEHJHVGXITCZ5075-72-14 09:32:008.3[facility]il NGOHGIHKQPJJ5232-30-18 09:32:0026[facility] XfscsarEQZRGQKKTUNU8431-72-53 09:32:00 4.1[facility] OhfnwhjVAPNXBQNJYHE8503-28-60 09:32:02711Xbrwcagf HermannHEMATOLOGY 2017-01-29 09:32:0017.3[facility] PsldvnzASPDOGUEDA9296-09-52 09:32:0033.4[facility] RhmxrgpICJDYLUNPA7302-88-63 09:32:86152Ohynvrhw WfitfntMPREZGCRLS8074-93-96 09:32:007.4[facility] KbevjfaQEPMYABTVY9930-62-94 09:32:0086.2[facility]il XHSXSTUHEM7274-95-70 09:32:0023.2[facility] AizjvtrRZTCWRWKRW0980-11-17 09:32:00 Test Item Value Reference Range Interpretation Comments MCH (test code = MCH) 28.7 pg 27.0-31.0 [facility] CmojgvcOFCBIKFEEU2608-15-97 09:32:007.7[facility]annHEMATOLOGY 2017-01-29 09:32:002.69[facility] AiexiylBQZIIVOZHO4806-88-62 09:32:009.4[facility] AeywsijIOVIPXIRFZ3552-27-12 09:32:000.9[facility] DlmgclcJQOQFJAUOK0504-44-59 09:32:000.9[facility] HassiksAAEZIIPHNW4882-20-79 09:32:000.4[facility] OKHIJONEQS8422-50-33 09:32:007.6[facility] NgrnloyHIEQJUOAVF5308-69-74 09:32:009.3 [facility] SgqpeqoSGDLDACBDT5860-11-13 09:32:0080.7[facility]annHEMATOLOGY 2017-01-29 09:32:009.6[facility] QbfbqhxUGOMKGBQHKXM8312-41-01 09:32:00 Test Item Value Reference Range Interpretation Comments AGAP (test code = AGAP) 16.1 10.0-20.0 [facility] KilujnpRDARGREAYTAW5785-65-46 09:32:00 Test Item Value Reference Range Interpretation Comments eGFR (test code = eGFR) 52 [facility] YzlptpgHUGQTFLTSODH0156-47-18 09:32:00 Test Item Value Reference Range Interpretation Comments Chloride Lvl (test code = Chloride Lvl) 105 95-109 [facility]QtuwlniUUTQKVEYEDTS0822-12-58 09:32:00 Test Item Value Reference Range Interpretation Comments AGAP (test code = AGAP) 16.1 10.0-20.0 [facility]udoyqzMUYMIXCHZPVX3521-74-76 09:32:00 Test Item Value Reference Range Interpretation Comments BUN (test code = BUN) 10 05-24 [facility]JwvtndqABDLWXLHJGFN4789-84-06 09:32:00 Test Item Value Reference Range Interpretation Comments eGFR (test code = eGFR) 52 [facility] HospitalFngbvflVWZUWGDLHGJT4520-69-30 09:32:00 Test Item Value Reference Range Interpretation Comments Creatinine Lvl (test code = Creatinine 1.10 0.50-1.40 Lvl) [facility] HospitalSwyucujLTCEFLXSAWCB7395-94-64 09:32:00 Test Item Value Reference Range Interpretation Comments Chloride Lvl (test code = Chloride Lvl) 105 95-109 [facility] HospitalQeleoreVBEOQGDNRGRU7123-06-85 09:32:00 Test Item Value Reference Range Interpretation Comments Glucose Lvl (test code = Glucose Lvl) 108 70-99 [facility] HospitalItltrekGNGZYZLEKDBN0754-56-03 09:32:00 Test Item Value Reference Range Interpretation Comments BUN (test code = BUN) 05-24 [facility] HospitalGqnvsfkSKUYVYGENSOH4399-05-28 09:32:00 Test Item Value Reference Range Interpretation Comments Calcium Lvl (test code = Calcium Lvl) 8.3 8.5-10.5 [facility] HospitalQwfeumkVMZVNWSLYMJL4050-87-59 09:32:00 Test Item Value Reference Range Interpretation Comments Creatinine Lvl (test code = Creatinine 1.10 0.50-1.40 Lvl) [facility]JvnqisxPJINCPDOMJPT8278-49-41 09:32:00 Test Item Value Reference Range Interpretation Comments CO2 (test code = CO2) [facility] HospitalXfnpkktPVNQCOJNDHHG9812-61-01 09:32:00 Test Item Value Reference Range Interpretation Comments Glucose Lvl (test code = Glucose Lvl) 108 70-99 [facility] HospitalBvyleqgIZVNRBPDLQIM6089-08-55 09:32:00 Test Item Value Reference Range Interpretation Comments Potassium Lvl (test code = Potassium 4.1 3.5-5.1 Lvl) [facility] HospitalRqbpiotSCOWNWVRURFB6988-35-65 09:32:00 Test Item Value Reference Range Interpretation Comments Calcium Lvl (test code = Calcium Lvl) 8.3 8.5-10.5 [facility] HospitalBsqiyebLITWREQLHWAC5499-58-41 09:32:00 Test Item Value Reference Range Interpretation Comments Sodium Lvl (test code = Sodium Lvl) 143 135-145 [facility] HospitalPhgxkcbRFOFLDGLAIMO9457-58-83 09:32:00 Test Item Value Reference Range Interpretation Comments CO2 (test code = CO2) 26 24-32 [facility]TskmymdYALRCNAOOM3575-97-09 09:32:00 Test Item Value Reference Range Interpretation Comments RDW (test code = RDW) 17.3 11.5-14.5 [facility] HospitalJmjobrwJAQDHHRWDBDC6802-23-41 09:32:00 Test Item Value Reference Range Interpretation Comments Potassium Lvl (test code = Potassium 4.1 3.5-5.1 Lvl) [facility] HospitalRykwnilYYUJRLTSVC1147-22-50 09:32:00 Test Item Value Reference Range Interpretation Comments MCHC (test code = MCHC) 33.4 32.0-36.0 [facility] HospitalFhojtflGSEPSBFAICKO8849-54-38 09:32:00 Test Item Value Reference Range Interpretation Comments Sodium Lvl (test code = Sodium Lvl) 143 135-145 [facility] HospitalHsqppljQQLYERSOGZ5350-28-25 09:32:00 Test Item Value Reference Range Interpretation Comments Platelet (test code = Platelet) 350 133-450 [facility] HospitalAirzninXQUMPECTUN8494-79-66 09:32:00 Test Item Value Reference Range Interpretation Comments RDW (test code = RDW) 17.3 11.5-14.5 [facility] HospitalOesgufeBQDZQWISYX2034-63-35 09:32:00 Test Item Value Reference Range Interpretation Comments MPV (test code = MPV) 7.4 7.4-10.4 [facility] HospitalPhefwvvTXDNITDMTD0907-20-45 09:32:00 Test Item Value Reference Range Interpretation Comments MCHC (test code = MCHC) 33.4 32.0-36.0 [facility] HospitalWqpkhfzXWRIHGAQOG8276-45-93 09:32:00 Test Item Value Reference Range Interpretation Comments MCV (test code = MCV) 86.2 80.0-98.0 [facility] HospitalUsajxycQXGZNRYXIQ4302-56-34 09:32:00 Test Item Value Reference Range Interpretation Comments Platelet (test code = Platelet) 350 133-450 [facility] HospitalPvzbhpeOOOZZLDDLA7639-39-37 09:32:00 Test Item Value Reference Range Interpretation Comments Hct (test code = Hct) 23.2 36.0-48.0 [facility] HospitalXatpjwrLGCZWMVWBO1801-60-99 09:32:00 Test Item Value Reference Range Interpretation Comments MPV (test code = MPV) 7.4 7.4-10.4 [facility] HospitalFfxmuxdMLNAPWHQBH7779-71-83 09:32:00 Test Item Value Reference Range Interpretation Comments MCH (test code = MCH) 28.7 pg 27.0-31.0 [facility] HospitalRyenhypLXMNXDPNIO4077-44-05 09:32:00 Test Item Value Reference Range Interpretation Comments MCV (test code = MCV) 86.2 80.0-98.0 [facility] HospitalFaqbaekQDVPBXTHNB2554-91-13 09:32:00 Test Item Value Reference Range Interpretation Comments Hgb (test code = Hgb) 7.7 12.0-16.0 [facility] HospitalDxfbtzkZDCWHJFJRA4361-05-01 09:32:00 Test Item Value Reference Range Interpretation Comments Hct (test code = Hct) 23.2 36.0-48.0 [facility] HospitalZvxhijaOLOIVZYNWI8718-69-67 09:32:00 Test Item Value Reference Range Interpretation Comments RBC (test code = RBC) 2.69 4.20-5.40 [facility] HospitalNxizbqgXRSGPKRVWR4516-90-44 09:32:00 Test Item Value Reference Range Interpretation Comments MCH (test code = MCH) 28.7 pg 27.0-31.0 [facility] HospitalHelupwjNBWJLGLTYB3092-45-20 09:32:00 Test Item Value Reference Range Interpretation Comments WBC (test code = WBC) 9.4 3.7-10.4 [facility] HospitalGxucnujPWHJBTQDIT9466-65-96 09:32:00 Test Item Value Reference Range Interpretation Comments Hgb (test code = Hgb) 7.7 12.0-16.0 [facility] HospitalFkzgvvrQOTKHPJEPB4725-94-76 09:32:00 Test Item Value Reference Range Interpretation Comments Lymphocytes # (test code = Lymphocytes 0.9 1.0-5.5 #) [facility] HospitalNxktevgTEREWGWOJS0401-95-01 09:32:00 Test Item Value Reference Range Interpretation Comments RBC (test code = RBC) 2.69 4.20-5.40 [facility] HospitalBfrptcwDIUYBHWOAX7650-43-08 09:32:00 Test Item Value Reference Range Interpretation Comments Monocytes # (test code 0.9 See_Comment [Aut omated message] The = Monocytes #) system which generated this result tra nsmitted reference range : <=0.8. The reference r pascual was not used to int erpret this result as normal/abnormal . [facility] HospitalQgkchgjAONRDBYINW8757-22-44 09:32:00 Test Item Value Reference Range Interpretation Comments WBC (test code = WBC) 9.4 3.7-10.4 [facility] HospitalXdriwhrZFENHUPIHS2478-16-94 09:32:00 Test Item Value Reference Range Interpretation Comments Basophils (test code = 0.4 See_Comment [Aut omated message] The Basophils) system which ge nerated this result tra nsmitted reference range : <=1.0. The reference r pascual was not used to int erpret this result as normal/abnormal . [facility] HospitalXnkctlfTXIARSRGBA3896-19-56 09:32:00 Test Item Value Reference Range Interpretation Comments Lymphocytes # (test code = Lymphocytes 0.9 1.0-5.5 #) [facility] HospitalUfjhzljNEDVNLUVKR1799-16-47 09:32:00 Test Item Value Reference Range Interpretation Comments Segs-Bands # (test code = Segs-Bands #) 7.6 1.5-8.1 [facility] HospitalFwphqopCPHGXPJVYI2837-82-36 09:32:00 Test Item Value Reference Range Interpretation Comments Monocytes # (test code 0.9 See_Comment [Aut omated message] The = Monocytes #) system which generated this result tra nsmitted reference range : <=0.8. The reference r pascual was not used to int erpret this result as normal/abnormal . [facility] HospitalCwqqstnCNHCHRKIGH0960-75-03 09:32:00 Test Item Value Reference Range Interpretation Comments Lymphocytes (test code = Lymphocytes) 9.3 20.0-40.0 [facility] HospitalGmeeyndMPIWTGCWJY9994-23-96 09:32:00 Test Item Value Reference Range Interpretation Comments Basophils (test code = 0.4 See_Comment [Aut omated message] The Basophils) system which ge nerated this result tra nsmitted reference range : <=1.0. The reference r pascual was not used to int erpret this result as normal/abnormal . [facility]XflrumcIICSQFMSBH4610-70-63 09:32:00 Test Item Value Reference Range Interpretation Comments Segs (test code = Segs) 80.7 45.0-75.0 [facility]lakeYbdhnodGEJCXXQZKB9341-66-47 09:32:00 Test Item Value Reference Range Interpretation Comments Segs-Bands # (test code = Segs-Bands #) 7.6 1.5-8.1 [facility]lakeVhegiwjVZFRVQTPHO6925-55-24 09:32:00 Test Item Value Reference Range Interpretation Comments Monocytes (test code = Monocytes) 9.6 2.0-12.0 [facility]lakeCzetmfsYTFOLHVQCY5272-60-79 09:32:00 Test Item Value Reference Range Interpretation Comments Lymphocytes (test code = Lymphocytes) 9.3 20.0-40.0 [facility]lakeWmbgburYVBTIPEPVA2783-43-16 09:32:00 Test Item Value Reference Range Interpretation Comments Segs (test code = Segs) 80.7 45.0-75.0 [facility]lakeUbkfradAZABTRAEIO1908-08-48 09:32:00 Test Item Value Reference Range Interpretation Comments Monocytes (test code = Monocytes) 9.6 2.0-12.0 [facility] NdzkankTUFANJCPJHIW3117-17-59 09:32:0016.1[facility] 2017-01-29 09:32:0052[facility] JdhqcfpWYVEFFOBXMPY9371-12-51 09:32:21357Ejeaanpd ObrwfxaSURVKFUUDLFK3210-49-73 09:32:0010[facility] AjeuyvvVOGZJTWVTWEE2815-04-20 09:32:001.10[facility] FubrbwlJIXHHNZAPFJY9568-84-25 09:32:20193Jqhvxtex Sushil TUUVTLSRSSHE7083-11-16 09:32:008.3[facility] AkninadJSVFFIWQLSZM3613-84-51 09:32:0026[facility] CisnkkjVEYNCQFCWZTD6441-58-85 09:32:004.1[facility] DEARLEJNXGUU2102-34-98 09:32:80068Rfsbwowm YvxelrsWSUVDKDDUR8669-86-02 09:32:00 17.3[facility] WlbcwndOYITSRBJMQ9346-19-58 09:32:0033.4[facility]annHEMATOLOGY 2017-01-29 09:32:90065Ztlsubyy OjxlwdwTJGSXPCBON2204-82-16 09:32:007.4[facility] YcilmrkCLXTBNAFPS7321-89-51 09:32:0086.2[facility] UqxqfplLIMEBVCGGT2768-80-41 09:32:0023.2[facility] IaexyzlLAJITZYCIZ7519-42-99 09:32:00 Test Item Value Reference Range Interpretation Comments MCH (test code = MCH) 28.7 pg 27.0-31.0 [facility] WtxpjxvWLDWHMMQBQ1938-96-98 09:32:007.7[facility]annHEMATOLOGY 2017-01-29 09:32:002.69[facility] FyhsukdIQYAPMAZPT7026-41-24 09:32:009.4[facility] NxzyiufXPQSTTHAGK9571-43-04 09:32:000.9[facility] CcrmgnhJPNQSOSJBX6038-63-86 09:32:000.9[facility] CvbfnjcUDHQPWVWRP2760-89-22 09:32:000.4[facility] IMJDJNHZCS1196-80-62 09:32:007.6[facility] QjivybgVEPXYMZPOU5824-82-58 09:32:009.3 [facility] FklgennOPBPSXRSFN8731-79-85 09:32:0080.7[facility]annHEMATOLOGY 2017-01-29 09:32:009.6[facility] StoreannBLOOD B[facility] SYLRMHH2356-18-03 12:43:00 Test Item Value Reference Range Interpretation Comments ABO/Rh (test code = ABO/Rh) A POS [facility]BL[facility] SORTCNC1775-65-63 12:43:00 Test Item Value Reference Range Interpretation Comments Antibody Scrn (test Negative (01/28/17 7:43 code = Antibody Scrn) AM) [facility] GwejeefFNKVKUCDPVVS5664-32-65 12:43:00 Test Item Value Reference Range Interpretation Comments AGAP (test code = AGAP) 14.9 10.0-20.0 [facility] IyjxtvpOCKVYXGJNBTP5514-94-22 12:43:00 Test Item Value Reference Range Interpretation Comments CO2 (test code = CO2) 25 24-32 [facility] HospitalPbjirhlUBDOIJXMZKTT0660-68-88 12:43:00 Test Item Value Reference Range Interpretation Comments Calcium Lvl (test code = Calcium Lvl) 8.9 8.5-10.5 [facility] HospitalLjjzoruSKRIEYYDNCBO9460-23-81 12:43:00 Test Item Value Reference Range Interpretation Comments BUN (test code = BUN) 13 7-22 [facility] HospitalKjabglsAFSEXUWDDYBK3865-80-75 12:43:00 Test Item Value Reference Range Interpretation Comments Creatinine Lvl (test code = Creatinine 1.07 0.50-1.40 Lvl) [facility] HospitalZyaonxqJQPCAGGMRLAO6822-63-36 12:43:00 Test Item Value Reference Range Interpretation Comments Sodium Lvl (test code = Sodium Lvl) 139 135-145 [facility] HospitalUntsgjpRMHSBCKHUMGY2010-95-41 12:43:00 Test Item Value Reference Range Interpretation Comments Potassium Lvl (test code = Potassium 3.9 3.5-5.1 Lvl) [facility] HospitalRrbnlziNTEYGCSKXWZD6980-44-40 12:43:00 Test Item Value Reference Range Interpretation Comments Chloride Lvl (test code = Chloride Lvl) 103 95-109 [facility] HospitalNpaeuooKPIQLPYFTMVG3813-07-18 12:43:00 Test Item Value Reference Range Interpretation Comments Glucose Lvl (test code = Glucose Lvl) 93 70-99 [facility] HospitalLwrabxnJZWZYVDIKKYY1405-30-13 12:43:00 Test Item Value Reference Range Interpretation Comments eGFR (test code = eGFR) 54 [facility] HospitalYygmsbwXYGRWXQZPP7507-85-31 12:43:00 Test Item Value Reference Range Interpretation Comments Hgb (test code = Hgb) 6.4 12.0-16.0 [facility] HospitalPndoutdYVXXKTZZLC4497-30-79 12:43:00 Test Item Value Reference Range Interpretation Comments Hct (test code = Hct) 19.8 36.0-48.0 [facility]lakeN[facility] BEQMJYV0343-42-89 12:43:00 Test Item Value Reference Range Interpretation Comments ABO/Rh (test code = ABO/Rh) A [facility] CHLUGPJ8367-75-11 12:43:00 Test Item Value Reference Range Interpretation Comments Antibody Scrn (test Negative (01/28/17 7:43 code = Antibody Scrn) AM) [facility] HospitalQhngkjpJSBRSZOVSYWR2818-10-50 12:43:00 Test Item Value Reference Range Interpretation Comments AGAP (test code = AGAP) 14.9 10.0-20.0 [facility] HospitalVxdgqpgAPYYBVLURKGE0220-10-33 12:43:00 Test Item Value Reference Range Interpretation Comments CO2 (test code = CO2) 25 24-32 [facility] HospitalBljzwpmAOUPJGSEOEYM7382-98-18 12:43:00 Test Item Value Reference Range Interpretation Comments Calcium Lvl (test code = Calcium Lvl) 8.9 8.5-10.5 [facility] HospitalQdjypeaLONZZCQKVFAA6225-38-95 12:43:00 Test Item Value Reference Range Interpretation Comments BUN (test code = BUN) 13 7-22 [facility] HospitalTqlstfkUWHTSLEEIDRT2743-68-64 12:43:00 Test Item Value Reference Range Interpretation Comments Creatinine Lvl (test code = Creatinine 1.07 0.50-1.40 Lvl) [facility] HospitalPjerpkvAMCMPSATEWEY1925-46-73 12:43:00 Test Item Value Reference Range Interpretation Comments Sodium Lvl (test code = Sodium Lvl) 139 135-145 [facility] HospitalQohjuxgEYTKPGDDSCYO6312-35-80 12:43:00 Test Item Value Reference Range Interpretation Comments Potassium Lvl (test code = Potassium 3.9 3.5-5.1 Lvl) [facility] HospitalRtwbvouKNKRKERCHUCW7706-98-04 12:43:00 Test Item Value Reference Range Interpretation Comments Chloride Lvl (test code = Chloride Lvl) 103 95-109 [facility] HospitalNgyvmsiUTAQEOIPPDCQ8615-26-11 12:43:00 Test Item Value Reference Range Interpretation Comments Glucose Lvl (test code = Glucose Lvl) 93 70-99 [facility] HospitalMfnaaemWLFTHJHTRZWT9035-65-91 12:43:00 Test Item Value Reference Range Interpretation Comments eGFR (test code = eGFR) 54 [facility] HospitalLdyjcffTSSISUJTXP7023-16-97 12:43:00 Test Item Value Reference Range Interpretation Comments Hgb (test code = Hgb) 6.4 12.0-16.0 [facility] HospitalXcmjjwwZYPISXGLCM7825-26-71 12:43:00 Test Item Value Reference Range Interpretation Comments Hct (test code = Hct) 19.8 36.0-48.[address] KYXAMEA1428-20-30 12:43:00Negative (01/28/17 7:43 AM) [facility] DmbboovBAEZBANCTBSL2631-16-29 12:43:0014.9[facility] HermannELECTROLYTES 2017-01-28 12:43:0025[facility] QsccmywHJFTZKEYHRVB6222-58-93 12:43:008.9[facility] UuevplrKMSAJCHQTFGS5600-50-25 12:43:0013[facility] FszpvbcUNBNNZKEFLDO0625-21-37 12:43:001.07[facility] LxfxaziVAVEVJJPRJOJ3369-03-64 12:43:75299Chzpmzo[facility] MBGHJXUSQMIB5026-81-28 12:43:003.9[facility] NxfgwdwJBXGUWHZOGPR9366-67-95 12:43:75727Iqzdjmec FtlafqaBETRPPJZYJLT1923-30-76 12:43:0093[facility] JTDKABSIQXBO7948-69-45 12:43:0054[facility] IbicfdmIAJZMHGPQE2315-99-85 12:43:00 6.4[facility] BxlypzsPWQBHBUYBU2954-41-14 12:43:0019.8[facility]annBL[facility] JHIDMLN7977-93-91 12:43:00Negative (01/28/17 7:43 AM)[facility]annELECTROLYTES 2017-01-28 12:43:0014.9[facility] BuyvkhuJOQMDQXUGHVC4666-12-30 12:43:0025[facility] GkvxrvtEAHJAZMDQONJ2351-75-08 12:43:008.9[facility] XhepsqxOBZZNHSELRNF1528-04-64 12:43:0013[facility] HsbbldqBOMYVSKRLFGC7892-49-39 12:43:001.07[facility] Sushil FIJXRTLZBNOK4563-81-26 12:43:55431Ajctzfnp QuhmociTHLXKPZMRAZM0647-60-78 12:43:003.9[facility] XhfaumzBXSJYGMUVUWI0371-87-62 12:43:92996Tqcvyegx Sushil XALTFOBBXQUF7168-97-00 12:43:0093[facility] XykffqdARDRZAEWLPNJ9647-46-62 12:43:00 54[facility] IehfjfwMVSGIKAIXT0290-52-49 12:43:006.4[facility]annHEMATOLOGY 2017-01-28 12:43:0019.8[facility]annBL[facility] DQQYMOB4032-80-81 12:43:00 Negative (01/28/17 7:43 AM)[facility] PksumcrPUKJKEMUZXEQ1353-93-26 12:43:0014.9 [facility] WcsmptnUCHFFCMCEVLJ1231-66-74 12:43:0025[facility]annELECTROLYTES 2017-01-28 12:43:008.9[facility] LsddcelYJEQRVBNRUZA9722-66-20 12:43:0013[facility] FysjyreEBAHONWYAGRD5334-39-36 12:43:001.07[facility] FbogrezZEWEKXGXVNPH7979-54-05 12:43:96776Lvenegdl PlauxqhSHNQOQYGWSGX5151-78-67 12:43:003.9[facility] Sushil GJGMYTWGAGZV1906-09-59 12:43:98649Zgyppjez AnsjxauEYISTTOPNKNY7019-49-85 12:43:0093[facility] DrdmbnzIPXEROBNJJTW3269-54-52 12:43:0054[facility] NEGXUOLGIS4453-54-26 12:43:006.4[facility] UaopaesIGHVOGSDOT4290-71-36 12:43:00 19.8[facility]BL[facility] EJQPZMU8679-39-92 12:43:00 Test Item Value Reference Range Interpretation Comments ABO/Rh (test code = ABO/Rh) A POS [facility] GPYKTSX9543-69-46 12:43:00 Test Item Value Reference Range Interpretation Comments Antibody Scrn (test Negative (01/28/17 7:43 code = Antibody Scrn) AM) [facility] XrshxioREOEZVHOIYNN5428-65-17 12:43:00 Test Item Value Reference Range Interpretation Comments AGAP (test code = AGAP) 14.9 10.0-20.0 [facility] WLIWTAY8047-87-08 12:43:00 Test Item Value Reference Range Interpretation Comments ABO/Rh (test code = ABO/Rh) A POS [facility] WukyhazKTWGSHDQVEDC0284-78-30 12:43:00 Test Item Value Reference Range Interpretation Comments CO2 (test code = CO2) [facility] NMKXCIN6178-14-93 12:43:00 Test Item Value Reference Range Interpretation Comments Antibody Scrn (test Negative (01/28/17 7:43 code = Antibody Scrn) AM) [facility] HospitalUkkwredJMJHWVPYEMCS0055-80-07 12:43:00 Test Item Value Reference Range Interpretation Comments Calcium Lvl (test code = Calcium Lvl) 8.9 8.5-10.5 [facility] HospitalQbxqvkqZDLUSPXVNZFR4980-40-08 12:43:00 Test Item Value Reference Range Interpretation Comments AGAP (test code = AGAP) 14.9 10.0-20.0 [facility] HospitalAfeglnrTAYAMFYXRHWD9683-17-67 12:43:00 Test Item Value Reference Range Interpretation Comments CO2 (test code = CO2) [facility] HospitalOdfylhcMWHCPHHFDOBT2920-44-31 12:43:00 Test Item Value Reference Range Interpretation Comments BUN (test code = BUN) 13 05-24 [facility] HospitalYyncgtcBKSPXIIMLJVE0003-18-77 12:43:00 Test Item Value Reference Range Interpretation Comments Calcium Lvl (test code = Calcium Lvl) 8.9 8.5-10.5 [facility] HospitalVyvbbxbUTRNVQXBJIIM6720-95-79 12:43:00 Test Item Value Reference Range Interpretation Comments Creatinine Lvl (test code = Creatinine 1.07 0.50-1.40 Lvl) [facility] HospitalQhtppekHQFPKQEXJNUY6893-59-53 12:43:00 Test Item Value Reference Range Interpretation Comments BUN (test code = BUN) 13 05-24 [facility] HospitalRapxbmkSGGWTFUQGVHQ8761-38-36 12:43:00 Test Item Value Reference Range Interpretation Comments Sodium Lvl (test code = Sodium Lvl) 139 135-145 [facility] HospitalUrabxmgDPXGSATLIZXM8883-84-30 12:43:00 Test Item Value Reference Range Interpretation Comments Creatinine Lvl (test code = Creatinine 1.07 0.50-1.40 Lvl) [facility] HospitalBpqkrlfZLZQZLLITAAE3035-16-18 12:43:00 Test Item Value Reference Range Interpretation Comments Potassium Lvl (test code = Potassium 3.9 3.5-5.1 Lvl) [facility] HospitalFcktnnwIWXVSWPRZTUT1794-08-73 12:43:00 Test Item Value Reference Range Interpretation Comments Sodium Lvl (test code = Sodium Lvl) 139 135-145 [facility] HospitalCimsdsgIVKEDTJGWYWH0667-05-49 12:43:00 Test Item Value Reference Range Interpretation Comments Chloride Lvl (test code = Chloride Lvl) 103 95-109 [facility] HospitalIwytwtjQDCNSRZGZPGA4209-64-71 12:43:00 Test Item Value Reference Range Interpretation Comments Potassium Lvl (test code = Potassium 3.9 3.5-5.1 Lvl) [facility] HospitalAkiypzpRCQLLFKGAFZD3584-20-47 12:43:00 Test Item Value Reference Range Interpretation Comments Glucose Lvl (test code = Glucose Lvl) 93 70-99 [facility] HospitalNnattejMXIUEXPBUSIZ4978-58-29 12:43:00 Test Item Value Reference Range Interpretation Comments Chloride Lvl (test code = Chloride Lvl) 103 95-109 [facility] HospitalQcezhrePJHLSKUELNEV1436-60-02 12:43:00 Test Item Value Reference Range Interpretation Comments eGFR (test code = eGFR) 54 [facility] HospitalHtvfsrdDGMWWMHEQWPT2289-60-13 12:43:00 Test Item Value Reference Range Interpretation Comments Glucose Lvl (test code = Glucose Lvl) 93 70-99 [facility] HospitalKmvsdjmWZVFCVPRKY1093-03-58 12:43:00 Test Item Value Reference Range Interpretation Comments Hgb (test code = Hgb) 6.4 12.0-16.0 [facility] HospitalRcegizbUMLOECUHSAQQ5731-58-38 12:43:00 Test Item Value Reference Range Interpretation Comments eGFR (test code = eGFR) 54 [facility] HospitalBbzlkcsECFSOLTWMH1503-48-58 12:43:00 Test Item Value Reference Range Interpretation Comments Hct (test code = Hct) 19.8 36.0-48.0 [facility] HospitalUgtedsrTETLQIWMHN8541-16-60 12:43:00 Test Item Value Reference Range Interpretation Comments Hgb (test code = Hgb) 6.4 12.0-16.0 [facility] HospitalBqotgnbBGHMAHHHXY3556-65-69 12:43:00 Test Item Value Reference Range Interpretation Comments Hct (test code = Hct) 19.8 36.0-48.0 [facility] HospitalMslwqyyPGJQMEPAAVWK4302-01-56 [facility] 12:43:008.9[facility] HospitalUfapaphLIPWUZUHBEEZ1030-55-88 12:43:0013[facility] ZriiftqLQBTCLVJFRPH4008-91-15 12:43:001.07[facility] LqmxxieXJJTMZPZAEJH1281-86-32 12:43:06694Lpakvmrg AxoogcnFGULUOEGEPVJ2790-61-34 12:43:003.9[facility]il NKZXVFNPCUGI5391-07-73 12:43:35686Rjeguvlb JhwcqqbZOUPJWXHSLQL9799-23-62 12:43:0093[facility] JarsbrwNWSQUKYGPGCU4620-05-69 12:43:0054[facility] VLSZVWGTDZ6476-15-47 12:43:006.4[facility] ZecnbguRDCBUKBMDS8718-63-83 12:43:00 19.8[facility]BL[facility] EGTXEPK5605-16-21 12:43:00Negative (01/28/17 7:43 AM)[facility] IuaoavzSPFZMNMHKKCU1852-91-24 12:43:0014.9[facility] Sushil Consult Notes Date/Time Note Provider Source 2023-06-17 Associated Order(s): CONSULT NEPHROLOGY IM-NEPHR [facility] 12:27:45-00:00 Formatting of this note is different from the or iginal. STAFF Consultation requested by: IM/Hospitalist, Dr. Isaias collins Reason for Consultation: Hyponatremia Date of Service: 06/17/23 History of Present Illness: Trish Vergara is a 73 ye ar old female who presented to the hospital on the with complaints of a several day long history of nausea, vomiting, and diarrhea. Pt had also been experiencing weakness. Her Na levels have downward trended over admission despite measures such as initial IVF and subsequently NaCl tabs. Pt reports nausea is better, she reports no issues with oral intake, her breakfast tray appeared finished. PAST MEDICAL HISTORY Past Medical History: Diagnosis Date Anxiety Lumbago Past Surgical History: Procedure Laterality Date ACETABULUM ORIF Right 04/18/2014 Surgeon: Julian Flores MD; [facility] CL[facility]ED REDUCTION Right 05/24/2014 Surgeon: Julian Flores MD; Location: [facility] OR LOCATION COLONOSCOPY N/A 06/02/2020 Surgeon: Echo Botello MD; Location: [facility] OR Location ESOPHAGOGASTRODUODENOSCOPY N/A 06/02/2020 Surgeon: Echo Botello MD; Location: [facility] OR Location HIP CLOSED REDUCTION (SHX) Left 02/14/2018 Surgeon: Mason King MD; Location: [facility] Location SPINE SURGERY TOTAL HIP ARTHROPLASTY Left TOTAL HIP ARTHROPLASTY Right 04/18/2014 Surgeon: Julian Flores MD; [facility] Family History Problem Relation Age of Onset Non-contributory Other Allergies: Benadryl [diphenh ydramine hcl], Phenergan [promethazine], and Talwin [pentazocine lactate] MEDICATIONS Hospital Medications: Current Facility-Administered Medications Medication Dose Route Frequency Last Rate Last A dmin tolvaptan (SAMSCA) tablet 7.5 mg 7.5 mg Oral ON CE sodium chloride tablet 1 g 1 g Oral BID MEALS 1 g at 06/17/23 0851 enoxaparin (LOVENOX) inject ion 40 mg 40 mg Subcutaneous DAILY 40 mg at 06/17/23 0851 haloperidol lactate (HALDOL ) injection 2 mg 2 mg Slow IV Push Q6HPRN 2 mg at 06/17/23 0059 isosorbide mononitrate (IMD UR) 24 hr tablet 60 mg 60 mg Oral DAILY 60 mg at 06/17/23 0851 lisinopriL (PRINIVIL,ZESTRI L) tablet 20 mg 20 mg Oral BID 20 mg at 06/17/23 0851 atorvastatin (LIPITOR) tablet 40 mg 40 mg Oral QHS 40 mg at 06/16/232128 melatonin (MELATIN) tablet 3 mg 3 mg Oral QHS 3 mg at 06/16/232129 vitamin B-12 (CYANOCOBALAMI N) tablet 1,000 mcg 1,000 mcg Oral DAILY 1,000 mcg at 06/17/23 0851 acetaminophen (TYLENOL) tab let 650 mg 650 mg Oral Q6HPRN 650 mg at 06/16/23 2318 aspirin EC tablet 81 mg 81 mg Oral DAILY 81 mg at 06/17/23 0851 carvediloL (COREG) tablet 1 2.5 mg 12.5 mg Oral BID MEALS 12.5 mg at 06/17/23 0851 labetaloL (NORMODYNE) injec tion 10 mg 10 mg Slow IV Push Q4HPRN 10 mg at 06/17/23 0337 ondansetron (ZOFRAN (PF)) i njection 4 mg 4 mg Slow IV Push Q6HPRN 4 mg at 06/17/23 0101 hydralAZINE (APRESOLINE) in jection 10 mg 10 mg Slow IV Push Q4HPRN 10 mg at 06/14/23 0034 SOCIAL HISTORY Social History Tobacco Use Smoking Status Never Smokeless Tobacco Never Social History Substance and Sexual Activity Alcohol Use Yes Alcohol/week: 29.0 standard drinks of alcohol Types: 25 Standard drinks or equivalent, 4 Cans of beer per week Social History Substance and Sexual Activity Drug Use Never REVIEW OF SYSTEMS ROS: Constitutional: No fevers or chills reported Vision: No double vision or blurry vision report ed ENT: No sinusitis or dysphagia reported Resp: No cough or dyspnea reported CVS: No CP or palpitations reported GI: Recent N/V/D : No dysuria or hematuria reported Heme: No hx of DVTs or PE reported Endo: No DM or thyroid issues reported Neuro: No hx of CVA or seizures Derm: No reports of rashes or ulcers Allergic: No reports of anaphylaxis or urticaria PHYSICAL EXAMINATION BP 121/60 | Pulse 85 | Temp 36.3 ?C (97.4 ?F) | Resp 16 | Ht 1.778 m (5' 10") | Wt 54.5 kg (120 lb 1.6 oz) | SpO2 97% | BMI 17.23 kg/m? PE: Gen: NAD, non tachypnec HEENT: Atraumatic, sclera anicteric Neck: Supple Resp: b/l air entry, no rhonchi appreciated CVS: RRR, no loud murmur or gallop heart sounds appreciated GI: Soft, ND, NT : cao not present Ext: No significant LE edema, shins are non tend er Derm: No skin rashes or ulcers noted Neuro: Awake, alert, responsive\\, non focal LABORATORY Reviewed in the EMR CHART REVIEW: ASSESSMENT and PLAN Trish Vergara is a 73 ye ar old female with PMH as listed above, consulted for above mentioned. Acute hypotonic hyponatremia 2nd to ADH excess with both nausea and pain being triggers for ADH release but unclear if there is other drug induced cause (pt reportedly takes meds for psychiatric conditi ons but her home med list here does not includin g antipsychotics or SSRIs) Will d/c NaCl tabs given her HTN hx although BP has been labile and was not elevated this AM Will dose Tolvaptan 7.5 mg P O once as Na level is < 125 and pt has failed other measures. Will recheck Na level 4-6h afterwards Fluid restriction is not needed for the 24h bianca od during Tolvaptan use As OP, may place pt on free water restriction and Ure-Na to help maintain levels and will need to review her full list of meds. Would avoid NSAIDs. Sandip Hinkle MD, FASN Electronically signed by Sandip Hinkle MD at 12:51 PM CDT 2023-06-13 Associated Order(s): CONSULT ADULT VICE PRESIDENT OF CUSTOMER SERVICE [place] Rascon PT [facility] 11:45:27-00:00 Formatting of this note is different from the or iginal. Patient agreeable to working with physical therapy. Patient met semi reclined in bed. Recommend nursing staff util rosanne Mckinnon to safely assist patient with mobility out of the bed or chair. PHYSICAL THERAPY EVALUATION Consult received, chart revi ewed and evaluation complete this date. Patient is referred to PT for evaluation and treatment. Patient is a 73 year old female who presents to hospital for Weakness [R53.1] . Discharge Recommendations: Therapy Needs and Potential: Patient would benefit from c ontinued physical therapy services to address: decline in bed mobility decline in transfers decline in gait and/or balance decreased strength decreased endurance Patient demonstrates good po tential to improve and meet therapy goals with further physical therapy services. Recommend pt be transferred to rehab facility due to living alone and increase risk of falls. Challenges to Home Transition: increased risk of falls decreased caregiver availability Equipment recommendations: rolling walker Current Functional Status and/or Treatment: AM-PAC 6 Clicks (Raw Score 0 =Dependent, 24=Independent; Low function Raw Score 0= Dependent, 32=Independent): Raw Score - Basic Mobility : 15 T-Scale Score - Basic Mobility : 36.97 Bed Mobility: Rolling: Minimal Assistance Bridging: Minimal Assistance Scooting in supine: Minimal Assistance Supine-sit: Minimal Assistance Sitting balance Good Sit to supine: Minimal Assistance Transfers: Sit to stand: Minimal Assistance using Rolling W alker Stand to sit: Minimal Assistance using Rolling W alker Ambulation: Assisted patient with ambul ation as follows: 5 feet using Rolling Walker and Minimal Assistance. Therapeutic exercise: patient educated in Fall prevention. After session, patient up in chair. Call button provided. PLAN OF CARE: While in the hospital, PT wi ll follow patient at least 3 times per week,once or twice a day, per patient's tolerance and needs. See below for complete details. Admit Date: 06/09/2023 Hospital Diagnosis:Weakness [R53.1] PT Diagnosis: Difficulty wal lyndon, Weakness, and Abnormality of gait and balance Weight Bearing Precaution: WBAT General Precautions: Fall Bracing/Cast present or required:N/A PMH: Past Medical History: Diagnosis Date Anxiety Lumbago PSH: Past Surgical History: Procedure Laterality Date ACETABULUM ORIF Right 04/18/2014 Surgeon: Julian Flores MD; [facility] CLOSED REDUCTION Right 05/24/2014 Surgeon: Julian Flores MD; [facility] COLONOSCOPY N/A 06/02/2020 Surgeon: Echo Botello MD; Location: [facility] OR Location ESOPHAGOGASTRODUODENOSCOPY N/A 06/02/2020 Surgeon: Echo Botello MD; Location: [facility] OR Location HIP CLOSED REDUCTION (SHX) Left 02/14/2018 Surgeon: Mason King MD; Location: [facility] Location SPINE SURGERY TOTAL HIP ARTHROPLASTY Left TOTAL HIP ARTHROPLASTY Right 04/18/2014 Surgeon: Julian Flores MD; [facility] Prior Living Situation: lives alone and in a yash se. DME: Single Point Cane, Rolling Walker Prior level of Mobility: community ambulation, h ouse hold ambulation Suspected ischemic or hemorraghic stroke:No Subjective: Patient stated she came into hospita l due to vomiting. Patient/Family Goals: Be able to go home. Patient/Family verbalizes understanding of condi tion: Yes PAIN: denies pain before and after session COMMUNICATION Primary Language: Palauan Able to Verbalize needs: Yes Vision:good; no issues reported Hearing:good; no issues reported ORIENTATION/COGNITION: Oriented to: person, place, date/time, and situa tion Awake: Yes Alert: Yes Dizzy: No Follows Commands: Yes 1-Step Yes Multi-Step Yes Inconsistent: No BALANCE: Sitting: Static: Good Dynamic: Good Standing: Static: Good Dynamic: Good RANGE OF MOTION: within functional limits bilate ral LE STRENGTH: 4-/5 (G-), bilateral LE ENDURANCE: Fair+ SKIN INTEGRITY: intact PROBLEM LIST: Decline in bed mobility, Decline in gait, Decreased strength, Decreased endurance, Decreased balance, and Safety awareness deficits ASSESSMENT: Patient is a 73 year old female seen secondary to the above listed diagnosis. Patient would benefit from continued PT to address the above listed deficits to maximize independence and safety with functional mobility. Rehabilitation Potential: good Goals: The following goals a re to maximize independence and safety with functional mobility to eventually return to prior living situation and prior functional status. Upon discharge, patient and/or family will demon strate the followin. Rolling: Supervision Bridging: Supervision Supine-sit: Minimal Assistance Sitting balance Good Supine to sit: Supervision Sit to supine: Supervision 2. Sit to stand: Minimal Assistance using Raj g Walker Stand to sit: Minimal Assistance using Rolling W alker 3. Minimal Assistance with ambulation, Feet: 5 u sing least assistive device. 4. Demonstrate or verbalize understanding of home exercise program in order to continue with their rehab on their own. Treatment Plan: Gait trainin g, Therapeutic exercise, Transfer training, and Safety education, patient/caregiver education PATIENT EDUCATION: Patient p rovided with preferred teaching of verbal information on role of PT, plan of care. Shows readiness to learn. Verbal instruction teaching provided. Individual is able to read and verbalizes understanding of teaching provide d. Total Time Tx Codes in Minutes: 20 min Total Treatment Time in Minutes: 20 min Kajal Rascon PT [place] PT License [id number] [facility]ly [facility] Rehabilitation Services Department (phone) (fax) Electronically signed by Kajal Rascon PT at 0 06/13/2023 1:05 PM CDT 2023-06-10 Associated Order(s): CONSULT CARDIOLOGY [facility] 08:13:54-00:00 Formatting of this note is different from the or iginal. [facility] Cardiology Consult PCP: Guilherme Waters Date of Service: 06/10/2023 CHIEF COMPLAINT/reason for consult: Troponin kari young HISTORY OF PRESENT ILLNESS This is a 73 years old femal e with past medical history of paranoid schizophrenia and anxiety etc who came to [facility] for nausea, vomiting and diarrhea. Patient was also confused and agitated. Her blood pressure was in urgen cy range. Labs showed BREN and troponin elevation. She was started on IV heparin. EKG showed nonspecific ST-T abnormality. Therapeutic dose of Lovenox was also started. PAST MEDICAL HISTORY Past Medical History: Diagnosis Date Anxiety Lumbago Past Surgical History: Procedure Laterality Date ACETABULUM ORIF Right 04/18/2014 Surgeon: Julian Flores MD; [facility]: [facility] CLOSED REDUCTION Right 05/24/2014 Surgeon: Julian Flores MD; Location: [facility] LOCATION COLONOSCOPY N/A 06/02/2020 Surgeon: Echo Botello MD; Location: [facility] OR Location ESOPHAGOGASTRODUODENOSCOPY N/A 06/02/2020 Surgeon: Echo Botello MD; Location: [facility] OR Location HIP CLOSED REDUCTION (SHX) Left 02/14/2018 Surgeon: Mason King MD; Location: [facility] Location SPINE SURGERY TOTAL HIP ARTHROPLASTY Left TOTAL HIP ARTHROPLASTY Right 04/18/2014 Surgeon: Julian Flores MD; [facility] LOC[facility] Family History Problem Relation Age of Onset Non-contributory Other ALLERGIES Allergies Allergen Reactions Benadryl [Diphenhydramine Hcl] Rash Phenergan [Promethazine] Rash Talwin [Pentazocine Lactate] Unknown - See comm ents HALLUCINATION MEDICATIONS No current facility-administered medications on file prior to encounter. No current outpatient medications on file prior to encounter. SOCIAL HISTORY Social History Socioeconomic History Marital status: Tobacco Use Smoking status: Never Smokeless tobacco: Never Substance and Sexual Activity Alcohol use: Yes Alcohol/week: 29.0 standard drinks of alcohol Types: 25 Standard drinks or equivalent, 4 Cans of beer per week Drug use: Never Sexual activity: Not Currently Social History Narrative Disabled since 1989 REVIEW OF SYSTEMS At least 10 systems reviewed, negative except as mentioned in HPI PHYSICAL EXAMINATION Vitals: 06/10/23 0700 06/10/23 0755 06/10/23 0756 06/10 0800 BP: (!) 160/92 (!) 157/89 (!) 148/80 Pulse: 82 80 76 Resp: Temp: 37.9 ?C (100.3 ?F) 37.6 ?C (99.6 ?F) TempSrc: Axillary Oral SpO2: 94% 93% 93% Weight: Height: Constitutional: no apparent distress ENT: normocephalic atraumatic, supple, no lympha denopathy, no bruits, no JVD Lungs: clear to auscultation bilaterally Cardiovascular: S1, S2 normal, regular; no murmu rs, rubs or gallops GI: soft; non-tender; non-distended; normoactive bowel sounds : not examined Musculoskeletal: Extremities: no clubbing, cyano sis, or edema Skin: no rashes Neuro: no focal deficits LABS - reviewed pertinent labs as below: CBC BMP PT/INR WBC x10^3 (/uL) Date Value 05/24/2014 5.7 WBC (10*3/?L) Date Value 06/09/2023 11.38 (H) NA Date Value 06/09/2023 136 mmol/L 05/24/2014 139 MMOL/L No results found for: "PT" PLT x10^3 (/uL) Date Value 05/24/2014 325 PLT (10*3/?L) Date Value 06/09/2023 351 K Date Value 06/09/2023 3.6 mmol/L 05/24/2014 4.4 MMOL/L PT INR (no units) Date Value 04/25/2014 1.0 INR (no units) Date Value 05/28/2020 1.0 THB (G/DL) Date Value 04/18/2014 11.1 (L) HGB Date Value 06/09/2023 15.5 g/dL (H) 05/24/2014 11.4 G/DL (L) BUN Date Value 06/09/2023 46 mg/dL (H) 05/24/2014 9 MG/DL HCT (%) Date Value 06/09/2023 44.4 05/24/2014 34.6 (L) CREATININE Date Value 06/09/2023 1.20 mg/dL (H) 05/24/2014 0.74 MG/DL LIPID PROFILE GLUCOSE Date Value 06/09/2023 103 mg/dL 05/24/2014 92 MG/DL CHOL (MG/DL) Date Value 04/25/2014 201 (H) TSH LDL CHOL (MG/DL) Date Value 04/25/2014 130 TSH (mIU/L) Date Value 05/27/2020 1.11 CARDIAC ENZYMES HDL CHOL (MG/DL) Date Value 04/25/2014 41 (L) CK (U/L) Date Value 04/20/2014 446 (H) TRIG (MG/DL) Date Value 04/25/2014 150 LFTs CK-MB (ng/mL) Date Value 04/20/2014 1.0 AST(SGOT) (U/L) Date Value 06/09/2023 40 04/14/2014 58 (H) TROPONIN I (ng/mL) Date Value 06/09/2023 0.101 (H) 04/20/2014 0.020 ALT(SGPT) (U/L) Date Value 04/14/2014 41 ALTv (U/L) Date Value 06/09/2023 20 No results found for: "BNP" IMAGING - reviewed, pertinent results as below: Chest x-ray-clear EKG: Normal sinus rhythm, nonspecific ST-T abnor mality, prolonged QT interval ASSESSMENT/PLAN Principal Problem: Weakness Active Problems: Troponin I above reference range BREN (acute kidney injury) Hypertensive urgency Diarrhea Nausea, vomiting and diarrhe a-possible gastroenteritis. Supportive care per primary team. BREN-likely due to GI issues. Continue IV fluids. Hypertensive urgency-probabl y due to agitation. Her blood pressure has improved. You received IV hydralazine and metoprolol. Troponin elevation-no report ed chest pain. EKG showed nonspecific ST-T abnormality. Continue to trend troponin. Continue therapeutic Lovenox coverage for now. She received aspirin. Check fasting lipid p cynthia. Recommend to start met oprolol versus Coreg. Echocardiogram to assess ejection fraction and wall motion. Further ischemia workup will be considered. Thank you for allowing us to participate in the care of your patient. Please feel free to contact us for any questions or if we can be of further assistance. Shane Lester MD, FACC, DOUGIE [employer] Ass[employer]or Division of Cardiovascular Medicine [facility] Electronically signed by Shane Lester MD at 8:17 AM CDT History and Physical Notes Date/Time Note Provider Source 2023-06-10 Formatting of this note is different from the or iginal. [facility] 00:13:43-00:00 [employer]ICINE [employer] ADMIT H&P Date of Service: 06/10/2023 CHIEF COMPLAINT: weak, nausea, vomiting, and babita rrhea History of Present Illness 73 yo female with pmh of HTN , history of polypharmacy, paranoid schizophrenic (according to son) who presents with a 5 day history of nausea, vomiting, and diarrhea. Patient appears confused and agitate d. She had just recently got ativan due to agitation. Has to rely on previous documentation, patient was brought her by her son due to dizziness and bouts of nausea, vomiting, and diarrhea. Her son was concerned for polypharmacy a nd daily alcohol use (mixed drinks throughout day according to the son). PAST MEDICAL HISTORY Past Medical History: Diagnosis Date Anxiety Lumbago Past Surgical History: Procedure Laterality Date ACETABULUM ORIF Right 04/18/2014 Surgeon: Julian Flores MD; [facility]: [facility] CLOSED REDUCTION Right 05/24/2014 Surgeon: Julian Flores MD; Location: [facility] LOCATION COLONOSCOPY N/A 06/02/2020 Surgeon: Echo Botello MD; Location: [facility] OR Location ESOPHAGOGASTRODUODENOSCOPY N/A 06/02/2020 Surgeon: Echo Botello MD; Location: [facility] OR Location HIP CLOSED REDUCTION (SHX) Left 02/14/2018 Surgeon: Mason King MD; Location: [facility] Location SPINE SURGERY TOTAL HIP ARTHROPLASTY Left TOTAL HIP ARTHROPLASTY Right 04/18/2014 Surgeon: Julian Flores MD; [facility] Family History Problem Relation Age of Onset Non-contributory Other ALLERGIES Allergies Allergen Reactions Benadryl [Diphenhydramine Hcl] Rash Phenergan [Promethazine] Rash Talwin [Pentazocine Lactate] Unknown - See comm ents HALLUCINATION MEDICATIONS No current facility-administered medications on file prior to encounter. Current Outpatient Medications on File Prior to Encounter Medication Sig Dispense Refill furosemide 20 mg tablet Take 1 tablet by mouth every morning. 30 tablet 0 lisinopriL 10 mg tablet Take 1 tablet by mouth at bedtime. 30 tablet 5 chlorhexidine 4 % external liquid Apply to area(s) once daily as needed for Wound care. 8 Packet 0 sodium hypochlorite 0.25% ( DAKIN'S SOLUTION) solution Apply to area(s) 4 (four) times daily. 473 mL 0 ALPRAZOLAM 1 mg tablet TAKE 1 TABLET BY MOUTH 2 (TWO) TIMES DAILY NEEDED (ANXIETY). 10 tablet 0 gabapentin 800 mg tablet Ta ke 1 tablet by mouth 3 (three) times daily. 90 tablet 11 ALPRAZolam 2 mg tablet Take 2 mg by mouth 3 (th ree) times daily. HYDROcodone-acetaminophen 1 0-325 mg tablet Take 1 tablet by mouth 3 (three) times daily. naproxen 500 mg tablet Take 1 tablet by mouth 2 (two) times daily with meals. 60 tablet 11 morphine ER 60 mg 12 hr tab let Take 1 tablet by mouth every 12 (twelve) hours. Indications: chronic pain 20 tablet 0 I attest that the foregoing medication list in the medical record is true, accurate and complete to the best of my knowledge. SOCIAL HISTORY Social History Socioeconomic History Marital status: Tobacco Use Smoking status: Never Smokeless tobacco: Never Substance and Sexual Activity Alcohol use: Yes Alcohol/week: 29.0 standard drinks of alcohol Types: 25 Standard drinks or equivalent, 4 Cans of beer per week Drug use: Never Sexual activity: Not Currently Social History Narrative Disabled since 1989 Review of Systems Unable to perform ROS: Mental status change PHYSICAL EXAMINATION Vitals: 06/09/23 2240 06/09/23 2250 06/09/23 2300 06/10 0000 BP: (!) 167/93 (!) 172/97 (!) 169/83 Pulse: 80 80 80 Resp: 18 Temp: 37.1 ?C (98.7 ?F) TempSrc: Oral SpO2: 96% 97% 95% Weight: Height: Physical Exam Vitals and nursing note reviewed. Constitutional: General: She is not in acute distress. Appearance: Normal appearan ce. She is not ill-appearing, toxic-appearing or diaphoretic. HENT: Head: Normocephalic and atraumatic. Right Ear: External ear normal. Left Ear: External ear normal. Nose: Nose normal. No congestion. Mouth/Throat: Mouth: Mucous membranes are moist. Pharynx: No oropharyngeal exudate. Eyes: General: No scleral icterus. Extraocular Movements: Extraocular movements in tact. Conjunctiva/sclera: Conjunctivae normal. Pupils: Pupils are equal, round, and reactive t o light. Cardiovascular: Rate and Rhythm: Normal rate and regular rhythm . Pulmonary: Effort: Pulmonary effort is normal. No respirat ory distress. Breath sounds: Normal breath sounds. No wheezin g or rales. Abdominal: General: Abdomen is flat. Bowel sounds are norm al. There is no distension. Palpations: Abdomen is soft. Tenderness: There is no abdominal tenderness. T here is no guarding. Musculoskeletal: General: Normal range of motion. Cervical back: Normal range of motion and neck supple. Right lower leg: No edema. Left lower leg: No edema. Skin: General: Skin is warm and dry. Neurological: Mental Status: She is alert. Psychiatric: Mood and Affect: Mood normal. Behavior: Behavior normal. Thought Content: Thought content normal. Judgment: Judgment normal. LABS - reviewed pertinent labs as below: Reviewed IMAGING - reviewed, pertinent results as below: EXAM: XR CHEST 1 VW HISTORY: 73 years-old Female with weakness COMPARISON: Chest radiograph from 05/27/2020, 12/04 FINDINGS: Lungs: The lungs are clear and well-expanded. No pleural effusion or pneumothorax is identified. Heart/Mediastinum: The cardiomediastinal silhoue tte is normal in size accounting for technique. Bones: No osseous lesions are detected. The soft tissues appear normal. IMPRESSION No acute cardiopulmonary process. ASSESSMENT/PLAN Trish Vergara is a 73 ye ar old female with PMH as listed above, admitted to the hospital with: Metabolic encephalopathy: hi story of polysubstance abuse and alcohol abuse. Current urine drug screen is only positive for opiates. No detectable alcohol level. CT Head is within normal limit. -- Will watch for possible alcohol withdrawal -- Hold any potential sedative medication 2. Gastroenteritis: -- Will continue to monitor for any active disea se 3. Acute renal failure -- Fluid hydration 4. NSTEMI: could type II likely hypertensive cri sis -- Have started weight dose Lovenox SC BID -- Will continue with echocardiogram 5. Hypertension: uncontrolled -- Will continue with intravenous hydralazine an d labetalol as needed -- Will resume lisinopril once renal failure has improved. Prophylaxis: DVT- enoxaparin Code Status: addressed: FC Estimated LOS: This inpatien t admission will likely require greater than or equal to 2 Midnights. Management is not feasible as an outpatient and there is concern for adverse outcomes if not managed in an inpatient setting. Advanc e care planning discussed for 18 mins with son at the phone. Surrogate decision maker: Dianne Vergara (child) - Electronically signed by Angie Mathis MD at 0 06/10/2023 6:51 AM CDT Notes Date/Time Note Provider Source 2023-06-18 Formatting of this note might be differe nt from the original. Altagracia Garcia RN [facility] 11:19:58-00:00 TRANSITIONAL CARE MANAGEMENT ASSESSMENT 06/18/2023 Trish Vergara [id number] Trish Vergara is a 73 ye ar old /White female was admitted on 06/09/23 to [facility], [facility]. She was discharged on 06/17/23 with discharge disposition of HR- Routine Discharge. Admitting Physician: Angie Mathis Discharge Diagnosis: Possibly due to polypharmac y. - Mentation seems at baseline No linked episodes TCM [id number] outreach documentation: Discharge Assessment Chart Assessed: 06/18/23 Chart Reviewed - Post Discha rge Call Deferred due to Change in Discharge Status.: Discharged to SNF ([facility]) TCM Outreach Completed: 06/18/23 Future Appointments: 2023-06-17 Summary: Discharge Kelsey Aden RN [facility] 19:22:32-00:00 Pt given printed and verbal discharge instructions regarding AMS and going to Rehab facility, encouraged hydration, Prescriptions provided none Discussed ibuprofen and to take with food to elaine id GI distress. Pt verbalized understanding of instructions, pt awake alert oriented, resp reg unlabored, skin w/d, color appropriate for race, moves all ext well,pt encouraged to follow up with pcp Advised to seek medical attention for new/prolon ged/worsening of symptoms, No adverse reaction to meds given in ER noted up on discharge PIV d'cd, dressing to site, catheter in tact. Awake, alert oriented, resp reg unlabored, skin w/d, pt leaving amb with steady gait, in no apparent distress, 2023-06-17 [facility] 16:36:42-00:00 Problem: Discharge Planning Goal: Adequate for discharge Outcome: Resolved Goal: Effective communication Outcome: Resolved Problem: Falls, Risk of Goal: Absence of falls Outcome: Resolved Problem: Mental Status - Impaired, Risk of Goal: Mental status restored to baseline Outcome: Resolved Goal: Absence of physical injury Outcome: Resolved Problem: Nutrition Deficit Goal: Adequate nutritional intake Outcome: Resolved Problem: Pain Goal: Control of pain at or below patient's docu mented comfort goal Outcome: Resolved Goal: Reduction in pain sensation Outcome: Resolved 2023-06-17 Summary: ambulance transportation Les sebastian [facility] 16:30:33-00:00 RN Spoke to Mai at [facility] to set up transportation for discharge to [facility] 1.5-2 hours. Report called. Family notified. 2023-06-17 [facility] 01:51:33-00:00 Problem: Discharge Planning Goal: Adequate for discharge Outcome: Progressing as expected Goal: Effective communication Outcome: Progressing as expected Problem: Falls, Risk of Goal: Absence of falls Outcome: Progressing as expected Problem: Mental Status - Impaired, Risk of Goal: Mental status restored to baseline Outcome: Progressing as expected Goal: Absence of physical injury Outcome: Progressing as expected Problem: Nutrition Deficit Goal: Adequate nutritional intake Outcome: Progressing as expected Problem: Pain Goal: Control of pain at or below patient's docu mented comfort goal Outcome: Progressing as expected Goal: Reduction in pain sensation Outcome: Progressing as expected Problem: Pain Goal: Control of pain at or below patient's docu mented comfort goal Outcome: Progressing as expected Goal: Reduction in pain sensation Outcome: Progressing as expected 2023-06-16 Formatting of this note might be differe nt from the original. Norma Osuna RN [facility] 16:12:00-00:00 Problem: Discharge Planning Goal: Adequate for discharge Outcome: Progressing as expected Goal: Effective communication Outcome: Progressing as expected Problem: Falls, Risk of Goal: Absence of falls Outcome: Progressing as expected Problem: Mental Status - Impaired, Risk of Goal: Mental status restored to baseline Outcome: Progressing as expected Goal: Absence of physical injury Outcome: Progressing as expected Problem: Nutrition Deficit Goal: Adequate nutritional intake Outcome: Progressing as expected Problem: Pain Goal: Control of pain at or below patient's docu mented comfort goal Outcome: Progressing as expected Goal: Reduction in pain sensation Outcome: Progressing as expected Electronically signed by Norma Osuna RN at 7:56 PM T 2023-06-16 Formatting of this note might be differe nt from the original. Mireya Gauthier [facility] 00:51:23-00:00 Erwin BANERJEE Problem: Discharge Planning Goal: Adequate for discharge Outcome: Progressing as expected Goal: Effective communication Outcome: Progressing as expected Problem: Falls, Risk of Goal: Absence of falls Outcome: Progressing as expected Problem: Mental Status - Impaired, Risk of Goal: Mental status restored to baseline Outcome: Progressing as expected Goal: Absence of physical injury Outcome: Progressing as expected Problem: Nutrition Deficit Goal: Adequate nutritional intake Outcome: Progressing as expected Problem: Pain Goal: Control of pain at or below patient's docu mented comfort goal Outcome: Progressing as expected Goal: Reduction in pain sensation Outcome: Progressing as expected T 2023-06-15 [facility] 17:08:00-00:00 Problem: Discharge Planning Goal: Adequate for discharge Outcome: Progressing as expected Goal: Effective communication Outcome: Progressing as expected Problem: Falls, Risk of Goal: Absence of falls Outcome: Progressing as expected Problem: Mental Status - Impaired, Risk of Goal: Mental status restored to baseline Outcome: Progressing as expected Goal: Absence of physical injury Outcome: Progressing as expected Problem: Nutrition Deficit Goal: Adequate nutritional intake Outcome: Progressing as expected Problem: Pain Goal: Control of pain at or below patient's docu mented comfort goal Outcome: Progressing as expected Goal: Reduction in pain sensation Outcome: Progressing as expected Electronically signed by Norma Osuna RN at 8:03 PM T 2023-06-15 [facility] 00:25:35-00:00 Problem: Discharge Planning Goal: Adequate for discharge Outcome: Progressing as expected Goal: Effective communication Outcome: Progressing as expected Problem: Falls, Risk of Goal: Absence of falls Outcome: Progressing as expected Problem: Mental Status - Impaired, Risk of Goal: Mental status restored to baseline Outcome: Progressing as expected Goal: Absence of physical injury Outcome: Progressing as expected Problem: Nutrition Deficit Goal: Adequate nutritional intake Outcome: Progressing as expected Problem: Pain Goal: Control of pain at or below patient's docu mented comfort goal Outcome: Progressing as expected Goal: Reduction in pain sensation Outcome: Progressing as expected T 2023-06-14 [facility] 17:52:00-00:00 Problem: Discharge Planning Goal: Adequate for discharge Outcome: Progressing as expected Goal: Effective communication Outcome: Progressing as expected Problem: Falls, Risk of Goal: Absence of falls Outcome: Progressing as expected Problem: Mental Status - Impaired, Risk of Goal: Mental status restored to baseline Outcome: Progressing as expected Goal: Absence of physical injury Outcome: Progressing as expected Problem: Nutrition Deficit Goal: Adequate nutritional intake Outcome: Progressing as expected Problem: Pain Goal: Control of pain at or below patient's docu mented comfort goal Outcome: Progressing as expected Goal: Reduction in pain sensation Outcome: Progressing as expected Electronically signed by Norma Osuna RN at 6:49 PM CDT 2023-06-14 [facility] 03:57:25-00:00 Problem: Discharge Planning Goal: Adequate for discharge Outcome: Progressing as expected Goal: Effective communication Outcome: Progressing as expected Problem: Falls, Risk of Goal: Absence of falls Outcome: Progressing as expected Problem: Mental Status - Impaired, Risk of Goal: Mental status restored to baseline Outcome: Progressing as expected Goal: Absence of physical injury Outcome: Progressing as expected Problem: Nutrition Deficit Goal: Adequate nutritional intake Outcome: Progressing as expected Problem: Pain Goal: Control of pain at or below patient's docu mented comfort goal Outcome: Progressing as expected Goal: Reduction in pain sensation Outcome: Progressing as expected T 2023-06-13 Formatting of this note might be differe nt from the original. Kathy Sommer [facility] 16:54:33-00:00 RN Problem: Discharge Planning Goal: Adequate for discharge Outcome: Progressing as expected Goal: Effective communication Outcome: Progressing as expected Problem: Falls, Risk of Goal: Absence of falls Outcome: Progressing as expected Problem: Mental Status - Impaired, Risk of Goal: Mental status restored to baseline Outcome: Progressing as expected Problem: Nutrition Deficit Goal: Adequate nutritional intake Outcome: Progressing as expected Problem: Pain Goal: Control of pain at or below patient's docu mented comfort goal Outcome: Progressing as expected Goal: Reduction in pain sensation Outcome: Progressing as expected T 2023-06-12 Formatting of this note might be differe nt from the original. Pam Taylor RN [facility] 20:49:51-00:00 Problem: Discharge Planning Goal: Adequate for discharge Outcome: Progressing as expected Goal: Effective communication Outcome: Progressing as expected Problem: Falls, Risk of Goal: Absence of falls Outcome: Progressing as expected Problem: Mental Status - Impaired, Risk of Goal: Mental status restored to baseline Outcome: Progressing as expected Goal: Absence of physical injury Outcome: Progressing as expected Problem: Nutrition Deficit Goal: Adequate nutritional intake Outcome: Progressing as expected Problem: Pain Goal: Control of pain at or below patient's docu mented comfort goal Outcome: Progressing as expected Goal: Reduction in pain sensation Outcome: Progressing as expected Electronically signed by Pam Taylor RN at 08/2023 8:49 PM [facility] 2023-06-12 Formatting of this note might be differe nt from the original. Pippa Marroquin RN [facility] 17:12:06-00:00 Problem: Discharge Planning Goal: Adequate for discharge Outcome: Progressing as expected Goal: Effective communication Outcome: Progressing as expected Problem: Falls, Risk of Goal: Absence of falls Outcome: Progressing as expected Problem: Mental Status - Impaired, Risk of Goal: Mental status restored to baseline Outcome: Progressing as expected Goal: Absence of physical injury Outcome: Progressing as expected Problem: Nutrition Deficit Goal: Adequate nutritional intake Outcome: Progressing as expected Problem: Pain Goal: Control of pain at or below patient's docu mented comfort goal Outcome: Progressing as expected Goal: Reduction in pain sensation Outcome: Progressing as expected [facility] 2023-06-11 Summary: pateint does not tolerate ensure [facility] 22:00:00-00:00 Attempted to get the patient to take a nutritional supplement last night and when the patient tasted it she got nauseated and vomited. Patient was given nausea medication and was able to drink water afterwards [facility] 2023-06-11 [facility] 20:25:54-00:00 Problem: Discharge Planning Goal: Adequate for discharge Outcome: Progressing as expected Goal: Effective communication Outcome: Progressing as expected Problem: Falls, Risk of Goal: Absence of falls Outcome: Progressing as expected Problem: Mental Status - Impaired, Risk of Goal: Mental status restored to baseline Outcome: Progressing as expected Goal: Absence of physical injury Outcome: Progressing as expected Problem: Nutrition Deficit Goal: Adequate nutritional intake Outcome: Progressing as expected Problem: Pain Goal: Control of pain at or below patient's docu mented comfort goal Outcome: Progressing as expected Goal: Reduction in pain sensation Outcome: Progressing as expected T 2023-06-11 Formatting of this note might be differe nt from the original. Daisy Rocha RN [facility] 17:11:50-00:00 Problem: Discharge Planning Goal: Adequate for discharge Outcome: Progressing as expected Goal: Effective communication Outcome: Progressing as expected Problem: Falls, Risk of Goal: Absence of falls Outcome: Progressing as expected Problem: Mental Status - Impaired, Risk of Goal: Mental status restored to baseline Outcome: Progressing as expected Goal: Absence of physical injury Outcome: Progressing as expected Problem: Nutrition Deficit Goal: Adequate nutritional intake Outcome: Progressing as expected Problem: Pain Goal: Control of pain at or below patient's docu mented comfort goal Outcome: Progressing as expected Goal: Reduction in pain sensation Outcome: Progressing as expected 2023-06-10 Formatting of this note might be differe nt from the original. Tyson Vasquez RN [facility] 23:59:21-00:00 Problem: Discharge Planning Goal: Adequate for discharge Outcome: Progressing as expected Goal: Effective communication Outcome: Progressing as expected Problem: Falls, Risk of Goal: Absence of falls Outcome: Progressing as expected Problem: Mental Status - Impaired, Risk of Goal: Mental status restored to baseline Outcome: Progressing as expected Goal: Absence of physical injury Outcome: Progressing as expected Problem: Nutrition Deficit Goal: Adequate nutritional intake Outcome: Progressing as expected Problem: Pain Goal: Control of pain at or below patient's docu mented comfort goal Outcome: Progressing as expected Goal: Reduction in pain sensation Outcome: Progressing as expected Electronically signed by Tyson Cochran RN at 0 06/10/2023 11:59 PM CDT 2023-06-10 Formatting of this note might be differe nt from the original. Adrienne Rhodes RN [facility] 10:58:01-00:00 Problem: Discharge Planning Goal: Adequate for discharge Outcome: Progressing as expected Goal: Effective communication Outcome: Progressing as expected Problem: Falls, Risk of Goal: Absence of falls Outcome: Progressing as expected Problem: Mental Status - Impaired, Risk of Goal: Mental status restored to baseline Outcome: Progressing as expected Goal: Absence of physical injury Outcome: Progressing as expected Problem: Nutrition Deficit Goal: Adequate nutritional intake Outcome: Progressing as expected Problem: Pain Goal: Control of pain at or below patient's docu mented comfort goal Outcome: Progressing as expected Goal: Reduction in pain sensation Outcome: Progressing as expected Electronically signed by Adrienne Rhodes RN at 0 06/10/2023 10:58 AM CDT 2023-06-10 Formatting of this note might be differe nt from the original. Gauri Quiñones [facility] 00:12:56-00:00 Patient admitted to [facility] for diagnosis of [place] shola. RN Patient agrees to admission, discussed plan of c are with patient and family. Patient is awake, A&Ox 4, RR even and unlabored on RA. Color appropriate for race. PIV intact x 1. No adverse reaction to medications administered while in ED. Belongings with patient to unit. 2023-06-10 [facility] 00:08:29-00:00 Nurse Report Report given to Nicolas Ortiz RN. Chief complaint, assessment findings, infusion verify and orders reviewed. Gauri Quiñones RN T 2023-06-09 Formatting of this note might be differe nt from the original. Maureen Johns [facility] 19:14:27-00:00 Pt arrives in wheelchair bro ught in by son, who reports pt is very weak and about to pass out. Pt reports that she has been throwing up and having diarrhea since . Son reports that pt lives ngozi RN e and is generally able to take care of herself fully. 2023-06-09 Associated Order(s): EKG-12 Lead ONCE [facility] RG[facility]Y [facility] 18:57:00-00:00 Pre-Procedure Diagnose(s): Weakness PHYSICIAN ST AFF Post-Procedure Diagnose(s): Weakness Formatting of this note is different from the or iginal. [facility] Emergency Department Note Patient Name: Trish Vergara Date of : 1950 73 year old female Treatment Room: 8/[facility] Primary Care Physician: Guilherme Waters Patient Escorted by: Family [5] Mode of Arrival: Personal means [1] EMS Treatment Prior to ED Arrival: Travel and Exposure Screening: Symptoms Does patient have any of these symptoms?: (not r ecorded) Exposure Screening Has patient had contact with someone with a communicable disease in the last month?: (not recorded) Diseases exposed to:: (not recorded) Is Patient ?: (not recorded) Exposure Date: (not recorded) Chief Complaint: Chief Complaint Patient presents with Fatigue Vomiting Diarrhea History of Present Illness: 73 y.o. female with h/o HTN, lives by self, now with c/o nausea, diarrhea and progressive weakness x 5 days. Patient denies any chest or abdominal pain. Son found at home very weak and brought to ED. So n reports Patient lives by s elf and usually able to care for self. Son reports that Patient has PCP is Dipesh and concern for polypharmacy and daily alcohol use. Past Medical History/Immunizations: Past Medical History: Diagnosis Date Anxiety Lumbago Tetanus received in last 5 years: Unknown Allergies: Allergies Allergen Reactions Benadryl [Diphenhydramine Hcl] Rash Phenergan [Promethazine] Rash Talwin [Pentazocine Lactate] Unknown - See comm ents HALLUCINATION Past Social History: Tobacco Use Never smoked or used smokeless tobacco. Alcohol Use Yes; 29.0 standard drinks o f alcohol per week; 25 Standard drinks or equivalent, 4 Cans of beer. Drug Use Never. Sexual Activity Not currently sexually active. Past Surgical History: Past Surgical History: Procedure Laterality Date ACETABULUM ORIF Right 04/18/2014 Surgeon: Julian Flores MD; Location: [facility] CLOSED REDUCTION Right 05/24/2014 Surgeon: Julian Flores MD; Location: [facility] LOCATION COLONOSCOPY N/A 06/02/2020 Surgeon: Echo Botello MD; Location: [facility] OR Location ESOPHAGOGASTRODUODENOSCOPY N/A 06/02/2020 Surgeon: Echo Botello MD; Location: [facility] OR Location HIP CLOSED REDUCTION (SHX) Left 02/14/2018 Surgeon: Mason King MD; Location: [facility] Location SPINE SURGERY TOTAL HIP ARTHROPLASTY Left TOTAL HIP ARTHROPLASTY Right 04/18/2014 Surgeon: Julian Flores MD; Location: [facility] OR LOCATION Review of Systems: Review of Systems Constitutional: Positive for activity change, appetite change and fatigue. Negative for chills and fever. HENT: Negative. Eyes: Negative. Respiratory: Negative. Breasts: Negative. Cardiovascular: Negative. Gastrointestinal: Positive for diarrhea, nausea and vomiting. Genitourinary: Negative. Musculoskeletal: Negative. Skin: Negative. Neurological: Positive for weakness and light-he adedness. Psychiatric/Behavioral: Negative. Endocrine: Endocrine negative Physical Exam: ED Triage Vitals [06/09/231910] Weight 52.2 kg (115 lb) Actual or estimated Estimated by patient/family report Height 1.778 m (5' 10") BP (!) 176/122 Pulse 105 Resp 15 Temp 36.5 ?C (97.7 ?F) Temp source Oral SpO2 98 % Measured on Room air Physical Exam Vitals and nursing note reviewed. Constitutional: General: She is not in acute distress. Appearance: She is ill-appearing. She is not to xic-appearing or diaphoretic. HENT: Head: Normocephalic and atraumatic. Mouth/Throat: Mouth: Mucous membranes are dry. Eyes: Pupils: Pupils are equal, round, and reactive t o light. Cardiovascular: Rate and Rhythm: Tachycardia present. Pulses: Normal pulses. Pulmonary: Effort: No respiratory distress. Abdominal: Palpations: Abdomen is soft. Musculoskeletal: General: Normal range of motion. Skin: General: Skin is warm. Capillary Refill: Capillary refill takes less t fabian 2 seconds. Neurological: General: No focal deficit present. Mental Status: She is alert and oriented to per son, place, and time. Psychiatric: Mood and Affect: Mood normal. Behavior: Behavior normal. Radiology: CT HEAD WO CONTRAST Final Result CT HEAD WO CONTRAST HISTORY: Mental status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 disc remnant. Decompressive laminectomy of L4. Constriction of the thecal s ac with marked crowding of the cauda equina nerve roots. There is marked at thickening of the ligamenta flava and cauda equina compression at the facet level similar in appearance as on the preoperative study. L5-S1: Disc collapse with di scogenic sclerosis. Diffusely bulging disc remnant. Bilateral foraminal stenosis with impingement of the exiting L5 nerve roots. Transpedicular screws at L5. IMPRESSION: 1. Cauda equina compression at the facet level o f L4-L5. 2. Foraminal stenosis at L4- L5 on the left with impingement upon the exiting nerve root. 3. Foraminal stenosis at L5- S1 bilaterally with impingement upon the exiting nerve roots. 4. Grade 1 anterolisthesis of L4 on L5. 5. Disc collapse and reactiv e degenerative discogenic changes at L4-L5 and at L5-S1. 6. Decompressive laminectomy at L4 with paired transpedicular fixation at L4 and L5. 2017-11-10 EXAM: FLUOROSCOPY-GUIDED LUMBAR PUNCTURE FOR CT MYELOGRAM [facility] 12:31:00-00:00 EXAM: CT [facility]ELOGRAM [facility] DATE: 11/10/2017 at 1404 hours INDICATION: Follow-up 8 su hs after decompressive laminectomy and posterior fixation at L4-L5. She started having radiating low back pain into a left hip and across to the anterior aspect of the left eye and to the top of her kneecap. PROCEDURE: An interlaminar l umbar puncture was carried out under fluoroscopic guidance with a 22-gauge 3.5 inch long spinal Quincke needle at the level of L1- L2 under the usual sterile conditions and lo billie anesthesia. 11 mL of Iohexol-180 was instilled into the lumbar thecal sac. FLUOROSCOPY TIME: 0.3 minutes with a radiation d ose of 3.0 mGy. COMPARISON: Lumbar MRI of showing cauda equina compression at L4-L5, foraminal stenosis at L4-L5 on the left and at L5-S1 on the right with impingement upon the exiting left L4 nerve root and the exiting right L5 nerve root. TECHNIQUE: Volumetric acquis ition of the lumbar spine, from the level of T11 to the sacrum. DLP: 712 mGy-cm FINDINGS: Interval decompres sive laminectomy at L4 with lore and screw fixation at L4 and L5. Persistent spinal canal stenosis at, and slightly below the L4-L5 disc level. The disc and endplate level at L1-L2 is normal. INDIVIDUAL LEVELS: L2-3: Degenerative loss of d isc height. Mild diffusely bulging posterior annulus. Degenerative Schmorl's type changes along the superior endplate of L2 on the right L3-4: Minimal retrolisthesis of L3 on L4. Mildly diffusely bulging posterior annulus. Posterior epidural fat indenting the thecal sac. Facet enlargement with constriction of the thecal sac and crowding of the cauda equina nerve ro ots. Paired transpedicular screws at L4. No halo around the screw shafts. L4-5: 25% anterior subluxati on of L4 on L5. The disc is obliterated. Degenerative intradiscal gas formation is present. Sclerosis of the opposing endplates is noted on the left with degenerative subchon dral cyst formation. Pseudob ulge of subluxation of the posterior disc remnant. Decompressive laminectomy of L4. Constriction of the thecal s ac with marked crowding of the cauda equina nerve roots. There is marked at thickening of the ligamenta flava and cauda equina compression at the facet level similar in appearance as on the preoperative study. L5-S1: Disc collapse with di scogenic sclerosis. Diffusely bulging disc remnant. Bilateral foraminal stenosis with impingement of the exiting L5 nerve roots. Transpedicular screws at L5. IMPRESSION: 1. Cauda equina compression at the facet level o f L4-L5. 2. Foraminal stenosis at L4- L5 on the left with impingement upon the exiting nerve root. 3. Foraminal stenosis at L5- S1 bilaterally with impingement upon the exiting nerve roots. 4. Grade 1 anterolisthesis of L4 on L5. 5. Disc collapse and reactiv e degenerative discogenic changes at L4-L5 and at L5-S1. 6. Decompressive laminectomy at L4 with paired transpedicular fixation at L4 and L5. 2017-11-10 EXAM: FLUOROSCOPY-GUIDED LUMBAR PUNCTURE FOR CT MYELOGRAM [facility] 12:31:00-00:00 EXAM: CT [facility]ELOGRAM [facility] DATE: 11/10/2017 at 1404 hours INDICATION: Follow-up 8 su hs after decompressive laminectomy and posterior fixation at L4-L5. She started having radiating low back pain into a left hip and across to the anterior aspect of the left eye and to the top of her kneecap. PROCEDURE: An interlaminar l umbar puncture was carried out under fluoroscopic guidance with a 22-gauge 3.5 inch long spinal Quincke needle at the level of L1- L2 under the usual sterile conditions and lo billie anesthesia. 11 mL of Iohexol-180 was instilled into the lumbar thecal sac. FLUOROSCOPY TIME: 0.3 minutes with a radiation d ose of 3.0 mGy. COMPARISON: Lumbar MRI of showing cauda equina compression at L4-L5, foraminal stenosis at L4-L5 on the left and at L5-S1 on the right with impingement upon the exiting left L4 nerve root and the exiting right L5 nerve root. TECHNIQUE: Volumetric acquis ition of the lumbar spine, from the level of T11 to the sacrum. DLP: 712 mGy-cm FINDINGS: Interval decompres sive laminectomy at L4 with lore and screw fixation at L4 and L5. Persistent spinal canal stenosis at, and slightly below the L4-L5 disc level. The disc and endplate level at L1-L2 is normal. INDIVIDUAL LEVELS: L2-3: Degenerative loss of d isc height. Mild diffusely bulging posterior annulus. Degenerative Schmorl's type changes along the superior endplate of L2 on the right L3-4: Minimal retrolisthesis of L3 on L4. Mildly diffusely bulging posterior annulus. Posterior epidural fat indenting the thecal sac. Facet enlargement with constriction of the thecal sac and crowding of the cauda equina nerve ro ots. Paired transpedicular screws at L4. No halo around the screw shafts. L4-5: 25% anterior subluxati on of L4 on L5. The disc is obliterated. Degenerative intradiscal gas formation is present. Sclerosis of the opposing endplates is noted on the left with degenerative subchon dral cyst formation. Pseudob ulge of subluxation of the posterior disc remnant. Decompressive laminectomy of L4. Constriction of the thecal s ac with marked crowding of the cauda equina nerve roots. There is marked at thickening of the ligamenta flava and cauda equina compression at the facet level similar in appearance as on the preoperative study. L5-S1: Disc collapse with di scogenic sclerosis. Diffusely bulging disc remnant. Bilateral foraminal stenosis with impingement of the exiting L5 nerve roots. Transpedicular screws at L5. IMPRESSION: 1. Cauda equina compression at the facet level o f L4-L5. 2. Foraminal stenosis at L4- L5 on the left with impingement upon the exiting nerve root. 3. Foraminal stenosis at L5- S1 bilaterally with impingement upon the exiting nerve roots. 4. Grade 1 anterolisthesis of L4 on L5. 5. Disc collapse and reactiv e degenerative discogenic changes at L4-L5 and at L5-S1. 6. Decompressive laminectomy at L4 with paired transpedicular fixation at L4 and L5. 2017-11-10 EXAM: FLUOROSCOPY-GUIDED LUMBAR PUNCTURE FOR CT MYELOGRAM [facility] 12:31:00-00:00 EXAM: CT MYELOGRAM L[facility]BAR [facility]INE [facility] DATE: 11/10/2017 at 1404 hours INDICATION: Follow-up 8 su hs after decompressive laminectomy and posterior fixation at L4-L5. She started having radiating low back pain into a left hip and across to the anterior aspect of the left eye and to the top of her kneecap. PROCEDURE: An interlaminar l umbar puncture was carried out under fluoroscopic guidance with a 22-gauge 3.5 inch long spinal Quincke needle at the level of L1- L2 under the usual sterile conditions and lo billie anesthesia. 11 mL of Iohexol-180 was instilled into the lumbar thecal sac. FLUOROSCOPY TIME: 0.3 minutes with a radiation d ose of 3.0 mGy. COMPARISON: Lumbar MRI of showing cauda equina compression at L4-L5, foraminal stenosis at L4-L5 on the left and at L5-S1 on the right with impingement upon the exiting left L4 nerve root and the exiting right L5 nerve root. TECHNIQUE: Volumetric acquis ition of the lumbar spine, from the level of T11 to the sacrum. DLP: 712 mGy-cm FINDINGS: Interval decompres sive laminectomy at L4 with lore and screw fixation at L4 and L5. Persistent spinal canal stenosis at, and slightly below the L4-L5 disc level. The disc and endplate level at L1-L2 is normal. INDIVIDUAL LEVELS: L2-3: Degenerative loss of d isc height. Mild diffusely bulging posterior annulus. Degenerative Schmorl's type changes along the superior endplate of L2 on the right L3-4: Minimal retrolisthesis of L3 on L4. Mildly diffusely bulging posterior annulus. Posterior epidural fat indenting the thecal sac. Facet enlargement with constriction of the thecal sac and crowding of the cauda equina nerve ro ots. Paired transpedicular screws at L4. No halo around the screw shafts. L4-5: 25% anterior subluxati on of L4 on L5. The disc is obliterated. Degenerative intradiscal gas formation is present. Sclerosis of the opposing endplates is noted on the left with degenerative subchon dral cyst formation. Pseudob ulge of subluxation of the posterior disc remnant. Decompressive laminectomy of L4. Constriction of the thecal s ac with marked crowding of the cauda equina nerve roots. There is marked at thickening of the ligamenta flava and cauda equina compression at the facet level similar in appearance as on the preoperative study. L5-S1: Disc collapse with di scogenic sclerosis. Diffusely bulging disc remnant. Bilateral foraminal stenosis with impingement of the exiting L5 nerve roots. Transpedicular screws at L5. IMPRESSION: 1. Cauda equina compression at the facet level o f L4-L5. 2. Foraminal stenosis at L4- L5 on the left with impingement upon the exiting nerve root. 3. Foraminal stenosis at L5- S1 bilaterally with impingement upon the exiting nerve roots. 4. Grade 1 anterolisthesis of L4 on L5. 5. Disc collapse and reactiv e degenerative discogenic changes at L4-L5 and at L5-S1. 6. Decompressive laminectomy at L4 with paired transpedicular fixation at L4 and L5. 2017-10-14 Patient Name: TRISH VERGARA [facility] :44:05-00:00 : [birth year]; Age: 67 years y/o Female MR: [id number] Study: Hip 2/3 views uni DX 10/14/17 12:58 AM CS T Ordering Physician:Rupa Young DO Clinical Indication: - sp reduction; Comparison: Pre-reduction films EXAM: Left Hip Xray FINDINGS: There is no fracture or disl ocation appreciated. Left hip arthroplasty noted. Please note arthroplasty femoral component head appears relatively uncovered by acetabular component. Orthopedic consultatio n/follow up recommended to c onfirm normal appearance for this specific arthroplasty. IMPRESSION: Appears to be successful reduction, though pleas e correlate as above. SL: WANDA 2017-10-14 Patient Name: TRISH VERGARA [facility] 01:44:05-00:00 : [birth year]; Age: 67 years y/o Female MR: [id number] Study: Hip 2/3 views uni DX 10/14/17 12:58 AM CS T Ordering Physician:Rupa Young DO Clinical Indication: - sp reduction; Comparison: Pre-reduction films EXAM: Left Hip Xray FINDINGS: There is no fracture or disl ocation appreciated. Left hip arthroplasty noted. Please note arthroplasty femoral component head appears relatively uncovered by acetabular component. Orthopedic consultatio n/follow up recommended to c onfirm normal appearance for this specific arthroplasty. IMPRESSION: Appears to be successful reduction, though pleas e correlate as above. SL: WANDA 2017-10-14 Patient Name: TRISH VERGARA [facility] 01:44:05-00:00 : [birth year]; Age: 67 years y/o Female MR: [id number] Study: Hip 2/3 views uni DX 10/14/17 12:58 AM CS T Ordering Physician:Rupa Young DO Clinical Indication: - sp reduction; Comparison: Pre-reduction films EXAM: Left Hip Xray FINDINGS: There is no fracture or disl ocation appreciated. Left hip arthroplasty noted. Please note arthroplasty femoral component head appears relatively uncovered by acetabular component. Orthopedic consultatio n/follow up recommended to c onfirm normal appearance for this specific arthroplasty. IMPRESSION: Appears to be successful reduction, though pleas e correlate as above. SL: WANDA 2017-10-13 Patient Name: TRISH VERGARA [facility] 21:47:16-00:00 : 1950; Age: 67 years Female MR: [id number] Study: Knee series 3 views DX 10/13/2017 9:10 PM 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 CLINICAL INDICATION: Pain Post Trauma - Trauma COMPARISON: None FINDINGS: Views and laterality: Left knee 3 views No displaced fracture or dis location. Moderate to severe narrowing with marginal osteophytes involving the lateral compartment and to a lesser extent involving the medial and patellofemoral compartments. Small joint effusion. IMPRESSION: No acute bony abnormalities. Tricompartmental degenerative changes of the lef t knee. DULCE: JORGE 2017-10-13 Study: Lumbar spine, 3 views [facility] 21:47:16-00:00 Clinical Indication: Back pain Post Trauma - Tra marissa Comparison: None FINDINGS: Multiple views of the lumbar spine show 5 nonrib-bearing lumbar vertebra. No acute compression fracture is seen. Grade 1 anterolisthesis of L4 over L5 by 7 mm is seen. Grade 1 retrolisthesis o f L3 over L4 by 5 mm is pres ent. Postoperative changes of posterior instrumentation for fusion at L4-L5 are seen. Changes of laminectomy in the lower lumbar spine at L4 and L5 are also noted. Marginal o steophytes throughout the lyla mbar spine are seen. Superimposed severe disc height loss with vacuum disc phenomena at L2-L3, L4-L5, and L5-S1 is seen, compatible with severe degenerative disc disease. IMPRESSION: Advanced degener ative disc disease of the lumbar spine without acute bony abnormality. SL: THEODORA 2017-10-13 Patient Name: TRISH VERGARA [facility] 21:47:16-00:00 : 1950; Age: 67 years Female MR: [id number] Study: Pelvis AP DX, Hip 2/3 views uni DX 2016 9:43 PM 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 CLINICAL INDICATION: - patient fall COMPARISON: None FINDINGS: Views and laterality: Pelvis one view, left hip 2 views The left femoral head prosth etic component is displaced cranially relative to the left acetabular prosthesis. The right hip arthroplasty appears intact. No displaced fracture. Partial visualization of t he posterior lumbar fusion hardware. No gross so ft tissue abnormalities. IMPRESSION: Dislocated left hip prosthesis. : JORGE 2017-10-13 Patient Name: TRISH VERGARA [facility] 21:47:16-00:00 : 1950; Age: 67 years Female MR: [id number] Study: Pelvis AP DX, Hip 2/3 views uni DX 2016 9:43 PM 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 CLINICAL INDICATION: - patient fall COMPARISON: None FINDINGS: Views and laterality: Pelvis one view, left hip 2 views The left femoral head prosth etic component is displaced cranially relative to the left acetabular prosthesis. The right hip arthroplasty appears intact. No displaced fracture. Partial visualization of t he posterior lumbar fusion hardware. No gross so ft tissue abnormalities. IMPRESSION: Dislocated left hip prosthesis. : PANTERARosibelAbrahan 2017-10-13 Patient Name: TRISH VERGARA [facility] 21:47:16-00:00 : 1950; Age: 67 years Female MR: [id number] Study: Knee series 3 views DX 10/13/2017 9:10 PM 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 CLINICAL INDICATION: Pain Post Trauma - Trauma COMPARISON: None FINDINGS: Views and laterality: Left knee 3 views No displaced fracture or dis location. Moderate to severe narrowing with marginal osteophytes involving the lateral compartment and to a lesser extent involving the medial and patellofemoral compartments. Small joint effusion. IMPRESSION: No acute bony abnormalities. Tricompartmental degenerative changes of the lef t knee. SL: JORGE 2017-10-13 Study: Lumbar spine, 3 views [facility] 21:47:16-00:00 Clinical Indication: Back pain Post Trauma - Tra marissa Comparison: None FINDINGS: Multiple views of the lumbar spine show 5 nonrib-bearing lumbar vertebra. No acute compression fracture is seen. Grade 1 anterolisthesis of L4 over L5 by 7 mm is seen. Grade 1 retrolisthesis o f L3 over L4 by 5 mm is pres ent. Postoperative changes of posterior instrumentation for fusion at L4-L5 are seen. Changes of laminectomy in the lower lumbar spine at L4 and L5 are also noted. Marginal o steophytes throughout the lyla mbar spine are seen. Superimposed severe disc height loss with vacuum disc phenomena at L2-L3, L4-L5, and L5-S1 is seen, compatible with severe degenerative disc disease. IMPRESSION: Advanced degener ative disc disease of the lumbar spine without acute bony abnormality. SL: THEODORA 2017-10-13 Patient Name: TRISH VERGARA [facility] 21:47:16-00:00 : 1950; Age: 67 years Female MR: [id number] Study: Pelvis AP DX, Hip 2/3 views uni DX 2016 9:43 PM 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 CLINICAL INDICATION: - patient fall COMPARISON: None FINDINGS: Views and laterality: Pelvis one view, left hip 2 views The left femoral head prosth etic component is displaced cranially relative to the left acetabular prosthesis. The right hip arthroplasty appears intact. No displaced fracture. Partial visualization of t he posterior lumbar fusion hardware. No gross so ft tissue abnormalities. IMPRESSION: Dislocated left hip prosthesis. SL: KENNY 2017-10-13 Patient Name: TRISH VERGARA [facility] 21:47:16-00:00 : 1950; Age: 67 years Female MR: [id number] Study: Pelvis AP DX, Hip 2/3 views uni DX 2016 9:43 PM 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 CLINICAL INDICATION: - patient fall COMPARISON: None FINDINGS: Views and laterality: Pelvis one view, left hip 2 views The left femoral head prosth etic component is displaced cranially relative to the left acetabular prosthesis. The right hip arthroplasty appears intact. No displaced fracture. Partial visualization of t he posterior lumbar fusion hardware. No gross so ft tissue abnormalities. IMPRESSION: Dislocated left hip prosthesis. SL: JORGE 2017-10-13 Patient Name: TRISH VERGARA [facility] 21:47:16-00:00 : 1950; Age: 67 years Female MR: [id number] Study: Knee series 3 views DX 10/13/2017 9:10 PM 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 CLINICAL INDICATION: Pain Post Trauma - Trauma COMPARISON: None FINDINGS: Views and laterality: Left knee 3 views No displaced fracture or dis location. Moderate to severe narrowing with marginal osteophytes involving the lateral compartment and to a lesser extent involving the medial and patellofemoral compartments. Small joint effusion. IMPRESSION: No acute bony abnormalities. Tricompartmental degenerative changes of the lef t knee. SL: JORGE 2017-10-13 Study: Lumbar spine, 3 views [place] [address]:47:16-00:00 Clinical Indication: Back pain Post Trauma - Tra marissa Comparison: None FINDINGS: Multiple views of the lumbar spine show 5 nonrib-bearing lumbar vertebra. No acute compression fracture is seen. Grade 1 anterolisthesis of L4 over L5 by 7 mm is seen. Grade 1 retrolisthesis o f L3 over L4 by 5 mm is pres ent. Postoperative changes of posterior instrumentation for fusion at L4-L5 are seen. Changes of laminectomy in the lower lumbar spine at L4 and L5 are also noted. Marginal o steophytes throughout the lyla mbar spine are seen. Superimposed severe disc height loss with vacuum disc phenomena at L2-L3, L4-L5, and L5-S1 is seen, compatible with severe degenerative disc disease. IMPRESSION: Advanced degener ative disc disease of the lumbar spine without acute bony abnormality. SL: THEODORA 2017-10-13 Patient Name: RTISH VERGARA [facility] 21:47:16-00:00 : 1950; Age: 67 years Female MR: [id number] Study: Pelvis AP DX, Hip 2/3 views uni DX 2016 9:43 PM 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 CLINICAL INDICATION: - patient fall COMPARISON: None FINDINGS: Views and laterality: Pelvis one view, left hip 2 views The left femoral head prosth etic component is displaced cranially relative to the left acetabular prosthesis. The right hip arthroplasty appears intact. No displaced fracture. Partial visualization of t he posterior lumbar fusion hardware. No gross so ft tissue abnormalities. IMPRESSION: Dislocated left hip prosthesis. SL: JORGE 2017-10-13 Patient Name: TRISH VERGARA [facility] 21:47:16-00:00 : 1950; Age: 67 years Female MR: [id number] Study: Pelvis AP DX, Hip 2/3 views [facility] 2016 9:43 PM 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 CLINICAL INDICATION: - patient fall COMPARISON: None FINDINGS: Views and laterality: Pelvis one view, left hip 2 views The left femoral head prosth etic component is displaced cranially relative to the left acetabular prosthesis. The right hip arthroplasty appears intact. No displaced fracture. Partial visualization of t he posterior lumbar fusion hardware. No gross so ft tissue abnormalities. IMPRESSION: Dislocated left hip prosthesis. SL: JORGE 2017-09-07 EXAM: Left Hip 2/3 views [facility] 03:14:29-00:00 DATE: 09/07/2017 3:12 AM 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 INDICATION: - post reduction left hip pain. COMPARISON: 09/06/2017. IMPRESSION: Gross anatomic l eft femoral head prosthesis with respect to the acetabular cup post reduction. No definite gross acute fracture detected. SL: BRIAN 2017-09-07 EXAM: Left Hip 2/3 views [facility] 03:14:29-00:00 DATE: 09/07/2017 3:12 AM 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 INDICATION: - post reduction left hip pain. COMPARISON: 09/06/2017. IMPRESSION: Gross anatomic l eft femoral head prosthesis with respect to the acetabular cup post reduction. No definite gross acute fracture detected. : BRIAN 2017-09-07 EXAM: Left Hip 2/3 views [facility] 03:14:29-00:00 DATE: 09/07/2017 3:12 AM 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 INDICATION: - post reduction left hip pain. COMPARISON: 09/06/2017. IMPRESSION: Gross anatomic l eft femoral head prosthesis with respect to the acetabular cup post reduction. No definite gross acute fracture detected. SL: JNGUYEN-PC 2017-09-06 Left hip 2 views: [facility] 20:56:54-00:00 HISTORY: Pain after fall. FINDINGS: The left hip prost hesis is dislocated. There is no loosening or fracture around the components. SL: [facility] 2017-09-06 Left hip 2 views: [facility] 20:56:54-00:00 HISTORY: Pain after fall. FINDINGS: The left hip prost hesis is dislocated. There is no loosening or fracture around the components. SL: [facility] 2017-09-06 Left hip 2 views: [facility] 20:56:54-00:00 HISTORY: Pain after fall. FINDINGS: The left hip prost hesis is dislocated. There is no loosening or fracture around the components. SL: [facility] 2017-01-29 EXAM: XR LUMBAR SPINE 3 VIEWS [facility] 05:00:00-00:00 DATE: 01/29/2017 5:00 AM CDT Cent er INDICATION: Pain with radicu lopathy - UPrights please. For Dr. Fuentes, thank you! COMPARISON: Lumbar magnetic resonance imaging TECHNIQUE: Upright AP, coned lateral and lateral radiographs of the lumbar spine FINDINGS: 5 lumbar type, non-rib bearing vertebr al bodies are present. Evidence of recent fusion of L4 to L5 are noted by means of transpedicular screws and rods bilaterally. No evidence of perihardware lucency or failure is noted. Grade 1 anterolisthesis of L4 on L5 is again noted. There is severe disc space n arrowing and marginal osteophyte formation at the L4-L5 and L5-S1. Facet arthropathy L4-S1. IMPRESSION: 1. Interval posterior fusion of L4 to L5. No richar dware complication. 2. Severe degenerative disc disease at L4-L5 and L5-S1. 2017-01-29 EXAM: XR LUMBAR SPINE 3 VIEWS [facility] 05:00:00-00:00 DATE: 01/29/2017 5:00 AM CDT Cent er INDICATION: Pain with radicu lopathy - UPrights please. For Dr. Fuentes, thank you! COMPARISON: Lumbar magnetic resonance imaging TECHNIQUE: Upright AP, coned lateral and lateral radiographs of the lumbar spine FINDINGS: 5 lumbar type, non-rib bearing vertebr al bodies are present. Evidence of recent fusion of L4 to L5 are noted by means of transpedicular screws and rods bilaterally. No evidence of perihardware lucency or failure is noted. Grade 1 anterolisthesis of L4 on L5 is again noted. There is severe disc space n arrowing and marginal osteophyte formation at the L4-L5 and L5-S1. Facet arthropathy L4-S1. IMPRESSION: 1. Interval posterior fusion of L4 to L5. No richar dware complication. 2. Severe degenerative disc disease at L4-L5 and L5-S1. 2017-01-29 EXAM: XR LUMBAR SPINE 3 VIEWS [facility] 05:00:00-00:00 DATE: 01/29/2017 5:00 AM CDT [facility] INDICATION: Pain with radicu lopathy - UPrights please. For Dr. Fuentes, thank you! COMPARISON: Lumbar magnetic resonance imaging TECHNIQUE: Upright AP, coned lateral and lateral radiographs of the lumbar spine FINDINGS: 5 lumbar type, non-rib bearing vertebr al bodies are present. Evidence of recent fusion of L4 to L5 are noted by means of transpedicular screws and rods bilaterally. No evidence of perihardware lucency or failure is noted. Grade 1 anterolisthesis of L4 on L5 is again noted. There is severe disc space n arrowing and marginal osteophyte formation at the L4-L5 and L5-S1. Facet arthropathy L4-S1. IMPRESSION: 1. Interval posterior fusion of L4 to L5. No richar dware complication. 2. Severe degenerative disc disease at L4-L5 and L5-S1. 2016-10-10 MRI LEFT HIP WITHOUT CONTRAST [facility] [place] 18:35:16-00:00 HISTORY: Left hip pain, acut e left hip pain, 66-year-old female reports painful left hip arthroplasty with mechanical symptoms for approximately 2 months, painful range of motion COMPARISON: Pelvis radiography dated 07/05/2014 FINDINGS: Optimal technique to minimiz e magnetic susceptibility artifact related to hip arthroplasty was employed. The left hip prosthesis and immediate surrounding bone and soft tissues are not evaluated due to artifact. 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 There is marked thickening o f the gluteus medius tendon insertion on the greater trochanter compatible with tendinopathy without visualization of tendon tear. The gluteus minimus tendon not clearly visu alized, likely inserting on one of the chronic greater trochanter fragments. There is moderate greater trochanteric bursitis. No bone marrow edema or frac ture is identified in the visualized osseous structures. No other soft tissue fluid collection is seen. No soft tissue inflammatory signal to suggest muscle strain, myositis, or cellulitis. The visualiz ed portion of the iliopsoas tendon is normal. Normal hamstring origin. Incidental note of right hip arthroplasty with mild greater trochanteric bursitis. IMPRESSION: 1.The left hip prosthesis an d immediate surrounding bone and soft tissues are not evaluated due to artifact. 2. Severe chronic fragmentat ion of the greater trochanter, grossly unchanged from 07/05/2014. 3. Gluteus medius tendinopathy without evidence of tendon tear. 4. The gluteus minimus tendo n not clearly visualized, likely inserting on one of the chronic greater trochanter fragments. 5. Moderate greater trochanteric bursitis. 6. Incidental note of right hip arthroplasty with mild greater trochanteric bursitis. SL: GUILLERMINA 2016-10-10 MRI LEFT HIP WITHOUT CONTRAST [facility] 18:35:16-00:00 HISTORY: Left hip pain, acut e left hip pain, 66-year-old female reports painful left hip arthroplasty with mechanical symptoms for approximately 2 months, painful range of motion COMPARISON: Pelvis radiography dated 07/05/2014 FINDINGS: Optimal technique to minimiz e magnetic susceptibility artifact related to hip arthroplasty was employed. The left hip prosthesis and immediate surrounding bone and soft tissues are not evaluated due to artifact. 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 There is marked thickening o f the gluteus medius tendon insertion on the greater trochanter compatible with tendinopathy without visualization of tendon tear. The gluteus minimus tendon not clearly visu alized, likely inserting on one of the chronic greater trochanter fragments. There is moderate greater trochanteric bursitis. No bone marrow edema or frac ture is identified in the visualized osseous structures. No other soft tissue fluid collection is seen. No soft tissue inflammatory signal to suggest muscle strain, myositis, or cellulitis. The visualiz ed portion of the iliopsoas tendon is normal. Normal hamstring origin. Incidental note of right hip arthroplasty with mild greater trochanteric bursitis. IMPRESSION: 1.The left hip prosthesis an d immediate surrounding bone and soft tissues are not evaluated due to artifact. 2. Severe chronic fragmentat ion of the greater trochanter, grossly unchanged from 07/05/2014. 3. Gluteus medius tendinopathy without evidence of tendon tear. 4. The gluteus minimus tendo n not clearly visualized, likely inserting on one of the chronic greater trochanter fragments. 5. Moderate greater trochanteric bursitis. 6. Incidental note of right hip arthroplasty with mild greater trochanteric bursitis. SL: GUILLERMINA 2016-10-10 MRI LEFT HIP WITHOUT CONTRAST [facility] [place] 18:35:16-00:00 HISTORY: Left hip pain, acut e left hip pain, 66-year-old female reports painful left hip arthroplasty with mechanical symptoms for approximately 2 months, painful range of motion COMPARISON: Pelvis radiography dated 07/05/2014 FINDINGS: Optimal technique to minimiz e magnetic susceptibility artifact related to hip arthroplasty was employed. The left hip prosthesis and immediate surrounding bone and soft tissues are not evaluated due to artifact. 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 There is marked thickening o f the gluteus medius tendon insertion on the greater trochanter compatible with tendinopathy without visualization of tendon tear. The gluteus minimus tendon not clearly visu alized, likely inserting on one of the chronic greater trochanter fragments. There is moderate greater trochanteric bursitis. No bone marrow edema or frac ture is identified in the visualized osseous structures. No other soft tissue fluid collection is seen. No soft tissue inflammatory signal to suggest muscle strain, myositis, or cellulitis. The visualiz ed portion of the iliopsoas tendon is normal. Normal hamstring origin. Incidental note of right hip arthroplasty with mild greater trochanteric bursitis. IMPRESSION: 1.The left hip prosthesis an d immediate surrounding bone and soft tissues are not evaluated due to artifact. 2. Severe chronic fragmentat ion of the greater trochanter, grossly unchanged from 07/05/2014. 3. Gluteus medius tendinopathy without evidence of tendon tear. 4. The gluteus minimus tendo n not clearly visualized, likely inserting on one of the chronic greater trochanter fragments. 5. Moderate greater trochanteric bursitis. 6. Incidental note of right hip arthroplasty with mild greater trochanteric bursitis. SL: [id number] 2016-10-10 PROCEDURE: LUMBAR SPINE MAGNETIC RESONANCE IMAGI ARI [place] 17:51:46-00:00 CLINICAL INDICATION: M54.5. Low back pain. COMPARISON: None. TECHNIQUE: Unenhanced axial and sagittal MR images of the lumbar spine were performed. FINDINGS: 5 nonrib-bearing l umbar vertebral bodies are assumed. There is straightening of the normal lumbar lordosis. There is approximately 6 mm anterolisthesis of L4 on L5. There is no demonstrable spondylolysis. There is spondylosis of the lumbar spine and visualized lower thoracic spine with multilevel anterior marginal osteophytes. There is a Schmorl's node involving the superior vertebral endplate a t L3. There are Modic type I I degenerative changes involving the vertebral endplates at L2-L3. There are Modic type I degenerative changes involving the vertebral endplates at L4-L5 and L5-S1. A 6 mm fo cus of T1 and T2 hyperintens ity in the marrow of L4 may represent a benign hemangioma or focal fatty marrow change. There is no compression deformity. There are mild degenerative changes of the visualized sacroiliac joints. Mild segmental right renal cortical irregularity may be due to persistent lobation or cortical scarring. There is a subcent imeter left renal cortical c yst. The visualized segment of the common bile duct is mildly dilated measuring a maximal diameter of approximately 9 mm. There is fatty infiltration of the visualized pancreas. The conus medullaris termina lottie at the level of L2. The visualized lower thoracic spinal cord demonstrates normal signal intensity. T12-L1: Anterior disc bulgin g. Broad-based posterior disc bulging measuring a maximal AP dimension of approximately 2 mm. Mild to moderate facet arthropathy. 7 mm right perineural cyst. No significant foraminal narrowing or spinal stenosis. L1-L2: Broad-based posterior disc bulging measuring a maximal AP dimension of approximately 2 mm. Mild to moderate facet arthropathy. 5 mm right perineural cyst. No significant foraminal narrowing or spinal stenosis. L2-L3: Mild to moderate diff use disc space narrowing. Disc desiccation. Anterior and lateral disc bulging. Broad-based posterior disc bulge/protrusion most pronounced in the posterolateral aspects measu ring a maximal AP dimension of approximately 5 mm. Mild facet arthropathy. Mild to moderate right foraminal narrowing. Mild left foraminal narrowing. Mild spinal stenosis. L3-L4: Disc desiccation. Ant erior and lateral disc bulging. Anterior annular fissure. Broad-based posterior disc bulge/protrusion most pronounced in the posterolateral aspects measuring a maximal AP dim ension of approximately 6 mm . Mild facet arthropathy. Mild to moderate bilateral foraminal narrowing. Mild spinal stenosis. L4-L5: Grade 1 anterolisthes is of L4 on L5. Severe diffuse disc space narrowing. Disc desiccation. Anterior and lateral disc bulging. Uncovering of the posterior aspect of the disc resulting in a broad- based posterior disc bulge/p rotrusion measuring a maximal AP dimension of approximately 7 mm. Right posterolateral annular fissure. Severe facet arthropathy. Thickening of the ligamentum flavum. Moderat e to severe right foraminal narrowing. Severe left foraminal narrowing. Severe spinal stenosis. L5-S1: Severe diffuse disc s pace narrowing. Disc desiccation. Anterior and lateral disc bulging. Broad-based posterior disc bulge/protrusion/osteophyte complex measuring a maximal AP dimension of approx imately 5 mm. Moderate facet arthropathy. Severe bilateral foraminal narrowing. Mild to moderate spinal stenosis. IMPRESSION: 1. Grade 1 anterolisthesis of L4 on L5. 2. Munith facet arthropathy. 3. Lumbar spondylosis with m ultilevel disc space narrowing, disc desiccation, posterior disc bulging/protrusions, foraminal narrowing and spinal stenosis as described above. There is severe spinal stenosis at L4-L5. 4. Degenerative changes of the sacroiliac joints . 5. Right renal cortical irre gularity may be due to persistent lobation or cortical scarring. 6. Subcentimeter left renal cortical cyst. 7. Mild extrahepatic biliary dilatation. If indicated further evaluation may be obtained with an MRCP. SL: 15 2016-10-10 PROCEDURE: LUMBAR SPINE MAGNETIC RESONANCE IMAGI ARI GOLDMAN [place] 17:51:46-00:00 CLINICAL INDICATION: M54.5. Low back pain. COMPARISON: None. TECHNIQUE: Unenhanced axial and sagittal MR images of the lumbar spine were performed. FINDINGS: 5 nonrib-bearing l umbar vertebral bodies are assumed. There is straightening of the normal lumbar lordosis. There is approximately 6 mm anterolisthesis of L4 on L5. There is no demonstrable spondylolysis. There is spondylosis of the lumbar spine and visualized lower thoracic spine with multilevel anterior marginal osteophytes. There is a Schmorl's node involving the superior vertebral endplate a t L3. There are Modic type I I degenerative changes involving the vertebral endplates at L2-L3. There are Modic type I degenerative changes involving the vertebral endplates at L4-L5 and L5-S1. A 6 mm fo cus of T1 and T2 hyperintens ity in the marrow of L4 may represent a benign hemangioma or focal fatty marrow change. There is no compression deformity. There are mild degenerative changes of the visualized sacroiliac joints. Mild segmental right renal cortical irregularity may be due to persistent lobation or cortical scarring. There is a subcent imeter left renal cortical c yst. The visualized segment of the common bile duct is mildly dilated measuring a maximal diameter of approximately 9 mm. There is fatty infiltration of the visualized pancreas. The conus medullaris termina lottie at the level of L2. The visualized lower thoracic spinal cord demonstrates normal signal intensity. T12-L1: Anterior disc bulgin g. Broad-based posterior disc bulging measuring a maximal AP dimension of approximately 2 mm. Mild to moderate facet arthropathy. 7 mm right perineural cyst. No significant foraminal narrowing or spinal stenosis. L1-L2: Broad-based posterior disc bulging measuring a maximal AP dimension of approximately 2 mm. Mild to moderate facet arthropathy. 5 mm right perineural cyst. No significant foraminal narrowing or spinal stenosis. L2-L3: Mild to moderate diff use disc space narrowing. Disc desiccation. Anterior and lateral disc bulging. Broad-based posterior disc bulge/protrusion most pronounced in the posterolateral aspects measu ring a maximal AP dimension of approximately 5 mm. Mild facet arthropathy. Mild to moderate right foraminal narrowing. Mild left foraminal narrowing. Mild spinal stenosis. L3-L4: Disc desiccation. Ant erior and lateral disc bulging. Anterior annular fissure. Broad-based posterior disc bulge/protrusion most pronounced in the posterolateral aspects measuring a maximal AP dim ension of approximately 6 mm . Mild facet arthropathy. Mild to moderate bilateral foraminal narrowing. Mild spinal stenosis. L4-L5: Grade 1 anterolisthes is of L4 on L5. Severe diffuse disc space narrowing. Disc desiccation. Anterior and lateral disc bulging. Uncovering of the posterior aspect of the disc resulting in a broad- based posterior disc bulge/p rotrusion measuring a maximal AP dimension of approximately 7 mm. Right posterolateral annular fissure. Severe facet arthropathy. Thickening of the ligamentum flavum. Moderat e to severe right foraminal narrowing. Severe left foraminal narrowing. Severe spinal stenosis. L5-S1: Severe diffuse disc s pace narrowing. Disc desiccation. Anterior and lateral disc bulging. Broad-based posterior disc bulge/protrusion/osteophyte complex measuring a maximal AP dimension of approx imately 5 mm. Moderate facet arthropathy. Severe bilateral foraminal narrowing. Mild to moderate spinal stenosis. IMPRESSION: 1. Grade 1 anterolisthesis of L4 on L5. 2. Munith facet arthropathy. 3. Lumbar spondylosis with m ultilevel disc space narrowing, disc desiccation, posterior disc bulging/protrusions, foraminal narrowing and spinal stenosis as described above. There is severe spinal stenosis at L4-L5. 4. Degenerative changes of the sacroiliac joints . 5. Right renal cortical irre gularity may be due to persistent lobation or cortical scarring. 6. Subcentimeter left renal cortical cyst. 7. Mild extrahepatic biliary dilatation. If indicated further evaluation may be obtained with an MRCP. SL: 15 2016-10-10 PROCEDURE: LUMBAR SPINE MAGNETIC RESONANCE IMAGI [facility] SUSI [place] 17:51:46-00:00 CLINICAL INDICATION: M54.5. Low back pain. COMPARISON: None. TECHNIQUE: Unenhanced axial and sagittal MR images of the lumbar spine were performed. FINDINGS: 5 nonrib-bearing l umbar vertebral bodies are assumed. There is straightening of the normal lumbar lordosis. There is approximately 6 mm anterolisthesis of L4 on L5. There is no demonstrable spondylolysis. There is spondylosis of the lumbar spine and visualized lower thoracic spine with multilevel anterior marginal osteophytes. There is a Schmorl's node involving the superior vertebral endplate a t L3. There are Modic type I I degenerative changes involving the vertebral endplates at L2-L3. There are Modic type I degenerative changes involving the vertebral endplates at L4-L5 and L5-S1. A 6 mm fo cus of T1 and T2 hyperintens ity in the marrow of L4 may represent a benign hemangioma or focal fatty marrow change. There is no compression deformity. There are mild degenerative changes of the visualized sacroiliac joints. Mild segmental right renal cortical irregularity may be due to persistent lobation or cortical scarring. There is a subcent imeter left renal cortical c yst. The visualized segment of the common bile duct is mildly dilated measuring a maximal diameter of approximately 9 mm. There is fatty infiltration of the visualized pancreas. The conus medullaris termina lottie at the level of L2. The visualized lower thoracic spinal cord demonstrates normal signal intensity. T12-L1: Anterior disc bulgin g. Broad-based posterior disc bulging measuring a maximal AP dimension of approximately 2 mm. Mild to moderate facet arthropathy. 7 mm right perineural cyst. No significant foraminal narrowing or spinal stenosis. L1-L2: Broad-based posterior disc bulging measuring a maximal AP dimension of approximately 2 mm. Mild to moderate facet arthropathy. 5 mm right perineural cyst. No significant foraminal narrowing or spinal stenosis. L2-L3: Mild to moderate diff use disc space narrowing. Disc desiccation. Anterior and lateral disc bulging. Broad-based posterior disc bulge/protrusion most pronounced in the posterolateral aspects measu ring a maximal AP dimension of approximately 5 mm. Mild facet arthropathy. Mild to moderate right foraminal narrowing. Mild left foraminal narrowing. Mild spinal stenosis. L3-L4: Disc desiccation. Ant erior and lateral disc bulging. Anterior annular fissure. Broad-based posterior disc bulge/protrusion most pronounced in the posterolateral aspects measuring a maximal AP dim ension of approximately 6 mm . Mild facet arthropathy. Mild to moderate bilateral foraminal narrowing. Mild spinal stenosis. L4-L5: Grade 1 anterolisthes is of L4 on L5. Severe diffuse disc space narrowing. Disc desiccation. Anterior and lateral disc bulging. Uncovering of the posterior aspect of the disc resulting in a broad- based posterior disc bulge/p rotrusion measuring a maximal AP dimension of approximately 7 mm. Right posterolateral annular fissure. Severe facet arthropathy. Thickening of the ligamentum flavum. Moderat e to severe right foraminal narrowing. Severe left foraminal narrowing. Severe spinal stenosis. L5-S1: Severe diffuse disc s pace narrowing. Disc desiccation. Anterior and lateral disc bulging. Broad-based posterior disc bulge/protrusion/osteophyte complex measuring a maximal AP dimension of approx imately 5 mm. Moderate facet arthropathy. Severe bilateral foraminal narrowing. Mild to moderate spinal stenosis.
--- NOTE | 2023-06-20 10:34 | RAD REPORT ---
EXAM DESCRIPTION: CT - Ct Stroke Brain Wo Cont - 06/20/2023 10:24 am CLINICAL HISTORY: STROKE ALERT COMPARISON: No comparisons TECHNIQUE: All CT scans are performed using dose optimization technique as appropriate and may inclu de automated exposure control or mA/KV adjustment according to patient size. FINDINGS: No intracranial hemorrhage, hydrocephalus or extra-axial fluid collection.No areas of brai n edema or evidence of midline shift. Moderate chronic small vessel ischemic changes. Cerebral atroph y. The paranasal sinuses and mastoids are clear. The calvarium is intact. IMPRESSION: No acute intracranial abnormality. Findings relayed to Dr. Terrazas by Dr. Villanueva at 1027 on 06/20/23
[2023-06-20 10:42] LABS: Absolute Lymphocytes (CBC) 1.4 K/uL (0.7-4.9); Hematocrit 28.3 % (36.0-45.0); Lymphocytes % 15.2 % (15.3-44.8); MCV 90.3 fL (80-100); Platelets 347 thou/uL (152-406); RBC Red Blood Cell Count 3.14 M/uL (3.86-4.86)
[2023-06-20 10:46] LABS: Protime INR 0.94
[2023-06-20 10:47] LABS: Specific Gravity 1.011 (1.005-1.030); Urine Bacteria <20 /HPF (<20); Urine Bilirubin NEGATIVE (Negative); Urine Blood Negative (Negative); Urine Clarity Clear (Clear); Urine Color Light-Yellow (Yellow); Urine Glucose NEGATIVE (Negative); Urine Mucus Slight /HPF (None Seen); Urine Protein NEGATIVE (Negative); Urine RBC None Seen /HPF (None Seen); Urine Urobilinogen Normal (Normal); Urine pH 5.5 (5.0-7.0)
[2023-06-20 10:59] LABS: Barbiturates NEGATIVE (NEGATIVE); Benzodiazepines POSITIVE (NEGATIVE); Cocaine NEGATIVE (NEGATIVE); METHAMPHETAM NEGATIVE (NEGATIVE); Methadone NEGATIVE (NEGATIVE); Opiates NEGATIVE (NEGATIVE); Phencyclidine NEGATIVE (NEGATIVE); THC Cannibis NEGATIVE (NEGATIVE)
[2023-06-20 11:01] LABS: ALT/SGPT 64 U/L (13-56); AST/SGOT 38 U/L (15-37); Albumin 2.4 g/dL (3.4-5.0); Alkaline Phosphatase 78 U/L (45-117); BUN Blood Urea Nitrogen 16 mg/dL (7-18); Bicarbonate 25 mEq/L (21-32); Bilirubin Total 0.1 mg/dL (0.2-1.0); Glomerular Filtration Rate 69 ml/min (=/>90); Glucose Level 72 mg/dL (74-106); Protein, Total 4.9 g/dL (6.4-8.2); Sodium Level 136 mEq/L (136-145); Troponin High Sensitivity 22.5 pg/mL (<58.9)
[2023-06-20 11:02] LABS: Bilirubin Direct < 0.1 mg/dL (0-0.2); Bilirubin Indirect, Calculated ND mg/dL (0.2-0.8)
--- NOTE | 2023-06-20 11:21 | RAD REPORT ---
EXAM DESCRIPTION: CT - Head angio - 06/20/2023 11:10 am CLINICAL HISTORY: DECLINING STATE COMPARISON: Ct Stroke Brain Wo Cont dated 06/20/2023 TECHNIQUE: CT angiography of the head was performed with maximum intensity reformatted images. 3D ma ximum intensity pixel (MIP) reconstructions were created All CT scans are performed using dose optimization technique as appropriate and may include automated exposure control or mA/KV adjustment according to patient size. FINDINGS: Anterior circulation: No aneurysm or large vessel occlusion. No hemodynamically significant stenosis. No arteriovenous malf ormation identified. Posterior circulation: type right posterior cerebral artery with occlusion at P2. No hemodynamically significant sten osis. No arteriovenous malformation identified. 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 Note that the patient has a origin of the right [employer]. No ot her occlusion, stenosis, or aneurysm identified.
--- NOTE | 2023-06-20 11:23 | RAD REPORT ---
EXAM DESCRIPTION: CT - Neck Angio - 06/20/2023 11:10 am CLINICAL HISTORY: AMS COMPARISON: No comparisons TECHNIQUE: CT angiography of the neck vessels was performed with maximum intensity reformatted image s. CAROTID STENOSIS REFERENCE USING NASCET CRITERIA: Mild - <50% stenosis. Moderate - 50-69% stenosis. Severe - 70-94% stenosis. Near occlusion - 95-99% stenosis. Occluded - 100% stenosis. All CT scans are performed using dose optimization technique as appropriate and may include automated exposure control or mA/KV adjustment according to patient size. FINDINGS: A left aortic arch is identified with normal three vessel configuration of the great vesse ls. No significant flow abnormality is seen of the common carotid bilaterally. No significant stenosis is identified involving the cervical segments of both internal carotid arteri es. Normal flow is seen within both vertebral arteries. Moderate calcified plaque present at both the external carotid arteries but no hemodynamically signif icant stenosis. IMPRESSION: No significant flow abnormality of the neck vessels is identified.
--- NOTE | 2023-06-20 11:25 | RAD REPORT ---
EXAM DESCRIPTION: RAD - Chest Single View - 06/20/2023 10:31 am CLINICAL HISTORY: MALA[place] COMPARISON: Chest Pa And Lat (2 Views) dated 07/09/2019 FINDINGS: Lines: None. Lungs: No evidence of edema or pneumonia. Pleural: No significant pleural effusions or pneumothorax. Cardiac: The heart size is within normal limits. Mediastinum: Within normal limits. Bones: No acute fractures. Other: None IMPRESSION: No acute cardiopulmonary disease.
--- NOTE | 2023-06-20 12:30 | RAD REPORT ---
EXAM DESCRIPTION: MRI - Brain Wo Cont - 06/20/2023 12:17 pm CLINICAL HISTORY: DECLINING STATE COMPARISON: No comparisons TECHNIQUE: Sagittal T1-weighted images were obtained along with PD/heavily T2-weighted and T2-FLAIR images. Axial DWI and ADC mapping sequences were also obtained along with coronal heavily T2-weighted images were obtained. FINDINGS: Small acute infarct in the central left aspect of the luana measuring 8 millimeters. There is no edema or shift of midline structures. No extra-axial fluid collections. Signal voids are seen a s a normal finding in the major intracranial vessels. Moderate chronic small vessel ischemic changes. Motion artifact. Several foci of susceptibility in the luana, left cerebellum likely reflecting the s equela of prior remote micro hemorrhages. Mastoid air cells and paranasal sinuses are clear. IMPRESSION: Small acute left pontine infarct. Background of moderate chronic small vessel ischemic c hanges.
--- NOTE | 2023-06-20 12:52 | EDPHYS ---
Physician Documentation [facility] Name: Trish Vergara Age: 73 yrs Sex: Female : 1950 Arrival Date: 06/20/2023 Time: 10:05 Bed 6 Private MD: ED Physician Bud Mojica HPI: 06/20 10:10 This 73 yrs old Female presents to ER via EMS with complaints of Altered Mental Status. jh7 10:10 The patient presents with decreased mental status, decreased responsiveness. Onset: The jh7 symptoms/episode began/occurred at 08:30. Possible causes: CVA or TIA, medications. Associated signs and symptoms: Pertinent positives: confusion, Pertinent negatives: abdominal pain, blurred vision, chest pain, diarrhea, headache, nausea, shortness of breath. [facility] from [facility] for altered mental status. Nursing staff reports that they gave the patient her atenolol, Xanax, and gabapentin. She was ANO x4 and went to have breakfast as scheduled. She was found at 8:30 AM slumped over in a chair only responsive to painful stimuli.. Historical: - Allergies: 10:10 Phenergan; ss 10:10 Talwin; ss - Home Meds: 10:10 Alprazolam 0.5 mg 1 tablet PO BID PRN anxiety [Active]; aspirin 81 mg Oral tablet, ss delayed release (enteric coated) daily [Active]; atorvastatin 40 mg oral tablet 1 tab every evening [Active]; carvedilol 12.5 mg oral tablet 2 times per day [Active]; gabapentin 800 mg oral tablet 3 times per day [Active]; isosorbide mononitrate 60 mg Oral Tablet, Extended Release 24 hr 1 tab daily [Active]; lisinopril 20 mg Oral tablet daily [Active]; melatonin 3 mg Oral Tablet,disintegrating every day at bedtime [Active]; - PMHx: 10:10 8 hip replacements; Chronic pain; plate in back; ss - Immunization history:: Adult Immunizations up to date. - Social history:: Smoking status: Patient denies any tobacco usage or history of. Patient/guardian denies using alcohol. ROS: 10:10 Constitutional: Negative for fever, chills, and weight loss, Eyes: Negative for injury, jh7 pain, redness, and discharge, Neck: Negative for injury, pain, and swelling, Cardiovascular: Negative for chest pain, palpitations, and edema, Respiratory: Negative for shortness of breath, cough, wheezing, and pleuritic chest pain, Abdomen/GI: Negative for abdominal pain, nausea, vomiting, diarrhea, and constipation, Back: Negative for injury and pain, MS/Extremity: Negative for injury and deformity, Skin: Negative for injury, rash, and discoloration. 10:10 Neuro: Positive for altered mental status. 10:10 All other systems are negative. Exam: 10:10 Eyes: Pupils equal round and reactive to light, extra-ocular motions intact. Lids and jh7 lashes normal. Conjunctiva and sclera are non-icteric and not injected. Cornea within normal limits. Periorbital areas with no swelling, redness, or edema. Neck: Trachea midline, no thyromegaly or masses palpated, and no cervical lymphadenopathy. Supple, full range of motion without nuchal rigidity, or vertebral point tenderness. No Meningismus. Cardiovascular: Regular rate and rhythm with a normal S1 and S2. No gallops, murmurs, or rubs. Normal PMI, no JVD. No pulse deficits. Respiratory: Lungs have equal breath sounds bilaterally, clear to auscultation and percussion. No rales, rhonchi or wheezes noted. No increased work of breathing, no retractions or nasal flaring. Abdomen/GI: Soft, non-tender, with normal bowel sounds. No distension or tympany. No guarding or rebound. No evidence of tenderness throughout. Back: No spinal tenderness. No costovertebral tenderness. Full range of motion. Skin: Warm, dry with normal turgor. Normal color with no rashes, no lesions, and no evidence of cellulitis. MS/ Extremity: Pulses equal, no cyanosis. Neurovascular intact. 10:10 Constitutional: The patient appears only responsive to painful stimuli 10:10 Neuro: Orientation: Not oriented to person, place, time, situation, Mentation: responsive to pain. Vital Signs: 10:08 BP 88 / 57; Pulse 80; Resp 9; Temp 97.6(TE); Pulse Ox 97% on R/A; ss 10:29 Weight 58 kg; ld1 10:38 BP 109 / 68; Pulse 74; Resp 19; Pulse Ox 99% on R/A; Pain 0/10; ld1 12:30 BP 128 / 86; Pulse 75; Resp 15; Pulse Ox 100% on R/A; hb 14:07 BP 157 / 89; Pulse 80; Resp 14; Pulse Ox 99% on R/A; hb 10:38 Pain Scale: Adult ld1 NIH Stroke Scale Scores: 10:30 NIHSS Score: 0 jh7 10:38 NIHSS Score: 0 ld1 Eliane Coma Score: 10:10 Eye Response: none(1). Modifying Factors: Medicated. Motor Response: withdraws from jh7 pain(4). Verbal Response: none(1). Total: 6. 10:30 Eye Response: to voice(3). Motor Response: obeys commands(6). Verbal Response: jh7 oriented(5). Total: 14. MDM: 10:08 Patient medically screened. jh7 10:30 ED course: Patient woke up while having a Vargas catheter inserted and asked what time jh7 it is. She now opens her eyes to voice and can answer questions appropriately. She was unaware that she was in the hospital and did not know the reason she was here. Now oriented to name, place, and situation.. 10:35 ED course: Pt with neg ct head, now fully awake, no lateralizing signs to suggest CVA, rn will obtain CTA and mRI to rule out. . 12:40 Management of patient was discussed with the following: Veneer Gluer: Dr. Zimmer, [facility] Neurology. Discussed significant findings seen on the CTA and MRI. Dr. Zimmer states that although the patient did have a small stroke, he believes it was precipitated by dehydration, possible incorrect dose of blood pressure medicine, and/or syncope. He advised giving fluids and holding blood pressure medicine for systolic blood pressures less than 125. He also advised to start the patient on Plavix, folic acid and continue the statin and aspirin. Did not recommend TPA and only advised medical management. Recommended inpatient admission to correct volume depletion. Hold BP meds if SBP <125.. 13:04 Differential Diagnosis: CVA, electrolyte abnormality, hypoglycemia, intracranial bleed, jh7 overdose, pneumonia, sepsis, TIA, UTI, volume depletion. Data reviewed: vital signs, nurses notes, lab test result(s), EKG, radiologic studies, CT scan, MRI, plain films. 06/20 10:13 Order name: Basic Metabolic Panel; Complete Time: 11:09 jh7 06/20 10:13 Order name: CBC with Diff; Complete Time: 10:53 7 06/20 10:13 Order name: Hepatic Function; Complete Time: 11: 7 06/20 10:13 Order name: High Sensitivity Troponin; Complete Time: 11: 7 06/20 10:13 Order name: Magnesium; Complete Time: 11: 7 06/20 10:13 Order name: Protime (+inr); Complete Time: 10:53 7 06/20 10:13 Order name: Ptt, Activated; Complete Time: 10:53 7 06/20 10:13 Order name: Lactate w/ 2H reflex if indic.; Complete Time: : [facility] 06/20 10:13 Order name: Urinalysis W/Microscopic; Complete Time: 10:53 [facility] 06/20 10:24 Order name: Glucose, Ancillary Testing; Complete Time: 10:31 EDMS 06/20 10:31 Order name: Urine Drug Screen; Complete Time: 11: 7 06/20 13:53 Order name: CBC without Diff EDMS 06/20 14:15 Order name: CBC with Diff hb 06/20 14:54 Order name: Lactate Sepsis 2 HR Follow-up EDMS 06/20 15:10 Order name: Urinalysis w/ reflexes EDMS 06/20 15:10 Order name: CBC with Automated Diff EDMS 06/20 15:10 Order name: CBC with Automated Diff EDMS 06/20 15:10 Order name: Comprehensive Metabolic Panel EDMS 06/20 15:10 Order name: Comprehensive Metabolic Panel EDMS 06/20 15:10 Order name: Magnesium EDMS 06/20 15:10 Order name: Magnesium EDMS 06/20 15:10 Order name: Troponin High Sensitivity EDMS 06/20 15:10 Order name: Troponin High Sensitivity EDMS 06/20 15:10 Order name: Troponin High Sensitivity EDMS 06/20 15:10 Order name: Troponin High Sensitivity EDMS 06/20 15:10 Order name: Lactate w/ 2H reflex if indic. EDMS 06/20 10:13 Order name: CT Stroke Brain w/o Contrast; Complete Time: 10:53 7 06/20 10:13 Order name: Stroke CXR 1 View; Complete Time: 11:27 7 06/20 10:32 Order name: CT Head Angio; Complete Time: 11:27 [facility] 06/20 10:32 Order name: CT Neck Angio; Complete Time: 11:27 [facility] 06/20 10:35 Order name: MRI - Brain Wo Cont; Complete Time: 12:31 [facility] 06/20 15:10 Order name: Abdomen [facility] 06/20 10:13 Order name: EKG; Complete Time: 10:14 [facility] 06/20 13:00 Order name: Diet Regular; Complete Time: 13:01 hb 06/20 15:10 Order name: Physical Therapy Consult [facility] 06/20 15:28 Order name: CONS Physician Consult [facility] 06/20 10:13 Order name: Accucheck; Complete Time: 10:13 [facility] 06/20 10:13 Order name: Cardiac monitoring; Complete Time: 10:13 [facility] 06/20 10:13 Order name: EKG - Nurse/Tech; Complete Time: 10:42 [facility] 06/20 10:13 Order name: IV Saline Lock; Complete Time: 10:13 [facility] 06/20 10:13 Order name: Labs collected and sent; Complete Time: 10:42 [facility] 06/20 10:13 Order name: NPO; Complete Time: 10:13 [facility] 06/20 10:13 Order name: O2 Per Protocol; Complete Time: 10:13 [facility] 06/20 10:13 Order name: O2 Sat Monitoring; Complete Time: 10:13 [facility] 06/20 10:13 Order name: Stroke Swallow Screen; Complete Time: 10:43 [facility] 06/20 10:13 Order name: Misc. Order: continue bolus given by EMS; Complete Time: 10:13 [facility] EC:17 Rate is 73 beats/min. Rhythm is regular. QRS [place] is Normal. ID interval is normal at [facility] 158 msec. QRS interval is normal at 76 msec. QT interval is normal at 406 msec. No Q waves. No ST changes noted. Clinical impression: NSR w/ Non-specific ST/T Changes. Administered Medications: 13:01 Drug: NS 0.9% IV 1000 ml Route: IV; Rate: 1 bolus; Site: left antecubital; ld1 Point of Care Testing: Blood Glucose: 10:24 Blood Glucose: 110 mg/dL; hb Ranges: Critical Glucose Levels:Adult <50 mg/dl or >400 mg/dl <40 mg/dl or >180 mg/dl Disposition: 10:46 Co-signature as Attending Physician, Bud Mojica MD I agree with the assessment and rn plan of care. I reviewed the patient's care provided by Advanced Practice Provider \T\ agree w/ the diagnosis \T\ care plan. I personally saw the pt \T\ performed a substantive portion of the visit, incldng all aspects of the (History/Exam/Medical Decision Making). PA/TREE CLIMBER's history reviewed, patient interviewed, and examined. HPI: 73 year old female with decreased responsiveness, now awake, began this AM after medication given. My personal exam of patient reveals: Pt awake, oriented to person and place, not time. Equal strength throughout. No facial droop. I agree with assessment and care plan and confirm the diagnosis (es) above. Disposition Summary: 06/20/23 12:51 Hospitalization Ordered Hospitalization Status: Inpatient Admission [facility] Provider: Kobe Mojica [facility] Location: Telemetry/MedSurg (Inpatient) [facility] Condition: Stable [facility] Problem: new [facility] Symptoms: have improved [facility] Bed/Room Type: Standard [facility] Room Assignment: 230(06/20/23 16:09) ja1 Diagnosis - Acute CVA [facility] - Syncope [facility] - Hypotension due to drugs [facility] Discharge Instructions: - Discharge Summary Sheet ss Forms: - Medication Reconciliation Form [facility] - SBAR form [facility] - Leadership Thank You Letter [facility] NIH Stroke Scale - NIH Stroke Score Date: 06/20/2023 Time: 10:30 Total Score = 0 10. Dysarthria (speech clarity - read or repeat words) - 0(Normal) 11. Extinction and Inattention (visual/tactile/auditory/spatial/personal) - 0(No abnormality) 1a. Level of Consciousness (LOC) - 0(Alert) 1b. Level of Consciousness (LOC) (Month \T\ Age) - 0(Both) 1c. LOC Commands (Open \T\ Closes Eyes/Station Attendant) - 0(Both) 2. Best Gaze (Lateral Gaze Paresis) - 0(Normal) 3. Visual Field Loss - 0(No visual loss) 4. Facial Palsy - 0(Normal) 5a. Left Arm: Motor (10-second hold) - 0(No drift) 5b. Right Arm: Motor (10-second hold) - 0(No drift) 6a. Left Leg: Motor (5-second hold - always test supine) - 0(No drift) 6b. Right Leg: Motor (5-second hold - always test supine) - 0(No drift) 7. Limb Ataxia (finger/nose \T\ heel/ozuna - test with eyes open) - 0(Absent) 8. Sensory Loss (pinprick arms/legs/face) - 0(Normal) 9. Best Language: Aphasia (description/naming/reading) - 0(No aphasia) Initials: [facility] NIH Stroke Scale - NIH Stroke Score Date: 06/20/2023 Time: 10:38 Total Score = 0 10. Dysarthria (speech clarity - read or repeat words) - 0(Normal) 11. Extinction and Inattention (visual/tactile/auditory/spatial/personal) - 0(No abnormality) 1a. Level of Consciousness (LOC) - 0(Alert) 1b. Level of Consciousness (LOC) (Month \T\ Age) - 0(Both) 1c. LOC Commands (Open \T\ Closes Eyes/Station Attendant) - 0(Both) 2. Best Gaze (Lateral Gaze Paresis) - 0(Normal) 3. Visual Field Loss - 0(No visual loss) 4. Facial Palsy - 0(Normal) 5a. Left Arm: Motor (10-second hold) - 0(No drift) 5b. Right Arm: Motor (10-second hold) - 0(No drift) 6a. Left Leg: Motor (5-second hold - always test supine) - 0(No drift) 6b. Right Leg: Motor (5-second hold - always test supine) - 0(No drift) 7. Limb Ataxia (finger/nose \T\ heel/ozuna - test with eyes open) - 0(Absent) 8. Sensory Loss (pinprick arms/legs/face) - 0(Normal) 9. Best Language: Aphasia (description/naming/reading) - 0(No aphasia) Initials: ld1 Signatures: Dispatcher [employer] EDMS Bud Mojica MD MD rn Blanchard, Shelby RN RN ss Ryan Jamil RN RN [email or web address] Garima Luna RN RN ld1 Elaine Geiger, [employer] [place] [id number] Corrections: (The following items were deleted from the chart) 13:03 10:30 ED course: Patient woke up while having a Vargas catheter inserted and dania asked what time it is. She now opens her eyes to voice and can answer questions appropriately. She was unaware that she was in the hospital and did not know the reason she was here. Now oriented to name, place, and situation.. [facility] 13:03 12:40 Management of patient was discussed with the following: Veneer Gluer: Dr. dania Zimmer, Neurology. Discussed significant findings seen on the CTA and MRI. Dr. Zimmer states that although the patient did have a small stroke, he believes it was precipitated by dehydration, possible incorrect dose of blood pressure medicine, and syncope. He advised giving fluids and holding blood pressure medicine for systolic blood pressures less than 125. He also advised to start the patient on Plavix, folic acid and continue the statin and aspirin.. [facility] 16:09 12:51 Ishan ja1
--- NOTE | 2023-06-20 12:52 | ER ---
Nurse's Notes [facility] Name: Trish Vergara Age: 73 yrs Sex: Female : 1950 Arrival Date: 06/20/2023 Time: 10:05 Bed 6 Private MD: Diagnosis: Acute CVA;Syncope;Hypotension due to drugs Presentation: 06/20 10:08 Chief complaint: EMS states: Pt was normal this at her baseline this morning, A\\T\\O x3, ss but after taking her morning meds including Xanax, gabapentin and blood pressure medication, she became responsive to painful stimuli only. Coronavirus screen: Client denies travel out of the [place] in the last 14 days. Ebola Screen: Patient denies exposure to infectious person. Patient denies travel to an Ebola-affected area in the 21 days before illness onset. Initial Sepsis Screen: Does the patient meet any 2 criteria? No. Patient's initial sepsis screen is negative. Does the patient have a suspected source of infection? No. Patient's initial sepsis screen is negative. Risk Assessment: Do you want to hurt yourself or someone else? Patient reports no desire to harm self or others. Onset of symptoms was June 20, 2023. 10:08 Method Of Arrival: EMS: [facility] ss 10:08 Acuity: [facility] 1 ss Historical: - Allergies: 10:10 Phenergan; ss 10:10 Talwin; ss - Home Meds: 10:10 Alprazolam 0.5 mg 1 tablet PO BID PRN anxiety [Active]; aspirin 81 mg Oral tablet, ss delayed release (enteric coated) daily [Active]; atorvastatin 40 mg oral tablet 1 tab every evening [Active]; carvedilol 12.5 mg oral tablet 2 times per day [Active]; gabapentin 800 mg oral tablet 3 times per day [Active]; isosorbide mononitrate 60 mg Oral Tablet, Extended Release 24 hr 1 tab daily [Active]; lisinopril 20 mg Oral tablet daily [Active]; melatonin 3 mg Oral Tablet,disintegrating every day at bedtime [Active]; - PMHx: 10:10 8 hip replacements; Chronic pain; plate in back; ss - Immunization history:: Adult Immunizations up to date. - Social history:: Smoking status: Patient denies any tobacco usage or history of. Patient/guardian denies using alcohol. Screenin:38 [facility] ED Fall Risk Assessment (Adult) History of falling in the last 3 months, ld1 including since admission No falls in past 3 months (0 pts). Abuse screen: Denies threats or abuse. Denies injuries from another. Nutritional screening: No deficits noted. Tuberculosis screening: No symptoms or risk factors identified. Assessment: 10:10 General: Appears in no apparent distress. comfortable, Behavior is unresponsive. Pain: ld1 Unable to use pain scale. Patient is unresponsive. Neuro: Level of Consciousness is unresponsive, Oriented to none. Cardiovascular: Capillary refill < 3 seconds Patient's skin is warm and dry. Rhythm is sinus rhythm. Respiratory: Airway is patent Respiratory effort is even, unlabored. GI: Abdomen is flat, non-distended. : No signs and/or symptoms were reported regarding the genitourinary system. EENT: No signs and/or symptoms were reported regarding the EENT system. Derm: No signs and/or symptoms reported regarding the dermatologic system. Musculoskeletal: No signs and/or symptoms reported regarding the musculoskeletal system. 10:15 Reassessment: Pt to CT at this time. ld1 10:38 Reassessment: Pt became AAOx2 upon blood draw and straight cath performed - Pt reports ld1 "How did I get to the hospital, I was eating breakfast this morning." Pt denies pain - c/o discomfort to left eye. ERP at bedside assessing patient. 10:40 Reassessment: Patient states symptoms have improved. General:. Pain: Denies pain. ld1 Neuro: Yi Agitation-Sedation Scale (RASS): -1 Drowsy Level of Consciousness is awake, obeys commands, Oriented to person, place, Appropriate for age Reports eye droop to left eye.. Cardiovascular: Capillary refill < 3 seconds Patient's skin is warm and dry. Rhythm is sinus rhythm. Respiratory: Airway is patent Respiratory effort is even, unlabored. 10:48 Reassessment: Pure wick applied to patient. Pt denies pain. ld1 11:45 Reassessment: Patient appears in no apparent distress at this time. No changes from hb previously documented assessment. Patient and/or family updated on plan of care and expected duration. Pain level reassessed. 12:55 Reassessment: Patient appears in no apparent distress at this time. No changes from hb previously documented assessment. Patient and/or family updated on plan of care and expected duration. Pain level reassessed. 14:06 Reassessment: Patient appears in no apparent distress at this time. No changes from hb previously documented assessment. Patient and/or family updated on plan of care and expected duration. Pain level reassessed. Vital Signs: 10:08 BP 88 / 57; Pulse 80; Resp 9; Temp 97.6(TE); Pulse Ox 97% on R/A; ss 10:29 Weight 58 kg; ld1 10:38 BP 109 / 68; Pulse 74; Resp 19; Pulse Ox 99% on R/A; Pain 0/10; ld1 12:30 BP 128 / 86; Pulse 75; Resp 15; Pulse Ox 100% on R/A; hb 14:07 BP 157 / 89; Pulse 80; Resp 14; Pulse Ox 99% on R/A; hb 10:38 Pain Scale: Adult ld1 Eliane Coma Score: 10:10 Eye Response: none(1). Modifying Factors: Medicated. Motor Response: withdraws from jh7 pain(4). Verbal Response: none(1). Total: 6. 10:30 Eye Response: to voice(3). Motor Response: obeys commands(6). Verbal Response: jh7 oriented(5). Total: 14. NIH Stroke Scale Scores: 10:30 NIHSS Score: 0 jh7 10:38 NIHSS Score: 0 ld1 ED Course: 10:08 Patient arrived in ED. ss 10:08 [facility] jh7 10:08 Bud Mojica MD is Attending Physician. jh7 10:10 Triage completed. ss 10:10 Arm band placed on left wrist. ss 10:20 Patient has correct armband on for positive identification. Placed in gown. Bed in low mm9 position. Call light in reach. Side rails up X2. Warm blanket given. Pillow given. Client placed on continuous cardiac and pulse oximetry monitoring. NIBP monitoring applied. panel monitor on. Pulse ox on. NIBP on. 10:20 EKG done, by ED staff, reviewed by Bud Mojica MD. Maintain EMS IV. Dressing intact. mm9 Good blood return noted. Site clean \\T\\ dry. 10:26 CT Stroke Brain w/o Contrast In Process Unspecified. EDMS 10:33 Stroke CXR 1 View In Process Unspecified. EDMS 10:38 No provider procedures requiring assistance completed. ld1 10:42 Garima Luna, RN is Primary Nurse. ld1 10:42 Urine Drug Screen Sent. ld1 10:42 Urinalysis W/Microscopic Sent. ld1 10:42 Lactate w/ 2H reflex if indic. Sent. ld1 10:42 Basic Metabolic Panel Sent. ld1 10:42 CBC with Diff Sent. ld1 10:42 Hepatic Function Sent. ld1 10:42 High Sensitivity Troponin Sent. ld1 10:42 Magnesium Sent. ld1 10:42 Protime (+inr) Sent. ld1 10:42 Ptt, Activated Sent. ld1 11:12 CT Head Angio In Process Unspecified. EDMS 11:12 CT Neck Angio In Process Unspecified. EDMS 12:08 MRI - Brain Wo Cont In Process Unspecified. EDMS 12:50 Kobe Mojica MD is Hospitalizing Provider. jh7 14:22 CBC with Diff Sent. mm9 15:11 Diet: Patient given snack. Patient given juice. mm9 15:22 Abdomen In Process Unspecified. EDMS 16:40 Patient admitted, IV remains in place. ld1 Administered Medications: 13:01 Drug: NS 0.9% IV 1000 ml Route: IV; Rate: 1 bolus; Site: left antecubital; ld1 Medication: 10:38 VIS not applicable for this client. ld1 Point of Care Testing: Blood Glucose: 10:24 Blood Glucose: 110 mg/dL; hb Ranges: Outcome: 12:51 Decision to Hospitalize by Provider. jh7 16:40 Admitted to Med/surg accompanied by tech, via stretcher, room 230. ld1 16:40 Condition: stable 16:40 Instructed on the need for admit. 16:40 Patient left the ED. ld1 NIH Stroke Scale - NIH Stroke Score Date: 06/20/2023 Time: 10:30 Total Score = 0 10. Dysarthria (speech clarity - read or repeat words) - 0(Normal) 11. Extinction and Inattention (visual/tactile/auditory/spatial/personal) - 0(No abnormality) 1a. Level of Consciousness (LOC) - 0(Alert) 1b. Level of Consciousness (LOC) (Month \\T\\ Age) - 0(Both) 1c. LOC Commands (Open \\T\\ Closes Eyes/Wedger Machine) - 0(Both) 2. Best Gaze (Lateral Gaze Paresis) - 0(Normal) 3. Visual Field Loss - 0(No visual loss) 4. Facial Palsy - 0(Normal) 5a. Left Arm: Motor (10-second hold) - 0(No drift) 5b. Right Arm: Motor (10-second hold) - 0(No drift) 6a. Left Leg: Motor (5-second hold - always test supine) - 0(No drift) 6b. Right Leg: Motor (5-second hold - always test supine) - 0(No drift) 7. Limb Ataxia (finger/nose \\T\\ heel/ozuna - test with eyes open) - 0(Absent) 8. Sensory Loss (pinprick arms/legs/face) - 0(Normal) 9. Best Language: Aphasia (description/naming/reading) - 0(No aphasia) Initials: jh7 NIH Stroke Scale - NIH Stroke Score Date: 06/20/2023 Time: 10:38 Total Score = 0 10. Dysarthria (speech clarity - read or repeat words) - 0(Normal) 11. Extinction and Inattention (visual/tactile/auditory/spatial/personal) - 0(No abnormality) 1a. Level of Consciousness (LOC) - 0(Alert) 1b. Level of Consciousness (LOC) (Month \\T\\ Age) - 0(Both) 1c. LOC Commands (Open \\T\\ Closes Eyes/Wedger Machine) - 0(Both) 2. Best Gaze (Lateral Gaze Paresis) - 0(Normal) 3. Visual Field Loss - 0(No visual loss) 4. Facial Palsy - 0(Normal) 5a. Left Arm: Motor (10-second hold) - 0(No drift) 5b. Right Arm: Motor (10-second hold) - 0(No drift) 6a. Left Leg: Motor (5-second hold - always test supine) - 0(No drift) 6b. Right Leg: Motor (5-second hold - always test supine) - 0(No drift) 7. Limb Ataxia (finger/nose \\T\\ heel/ozuna - test with eyes open) - 0(Absent) 8. Sensory Loss (pinprick arms/legs/face) - 0(Normal) 9. Best Language: Aphasia (description/naming/reading) - 0(No aphasia) Initials: ld1 Signatures: Dispatcher [employer] Deepa Tang, RN RN ss Judi Prince, RN RN Garima Luna RN RN ld1 Elaine Geiger FNP FNP 7 Leonor Bowling mm9
--- NOTE | 2023-06-20 14:05 | P.HP ---
Certification for Inpatient Patient admitted to: Inpatient With expected LOS: >2 Midnights Practitioner: I am a practitioner with admitting privileges, knowledge of patient current condition, hospital course, and medical plan of care. Services: Services provided to patient in accordance with Admission requirements found in Title 42 Section 412.3 of the Code of Federal Regulations Patient History Date of Service: 06/20/23 Reason for admission: Acute CVA History of Present Illness: 73 yo F, PMH: h/o GI bleed, Constipation, recent NSTEMI, recent gastroenteritis (recent hospitalization at [facility] 06/11-06/17) Patient was brought from intermediate after being found unresponsive/slumped over in her chair this morning. She reportedly her "normal" self upon waking this morning and she had her breakfast scheduled. She was found slumped over in her chair at 8:30 AM, responsive only to painful stimuli. At that time she was noted to be hypotensive. Patient was just recently adm itted to the intermediate, nursing staff reported patient was continued on her medications from discharge from [facility]. Nursing staff state patient's blood pressure ranged from [id number] since arrival/yesterday/overnight until this event occurred. They did not give any extra medications. Patient was not complaining of any new symptoms since her arrival. Upon arrival to the ED, her initial blood pressure was 88/57, pulse: 80. ER reported that she was unresponsive, she was given IV fluids, and eventually "woke up". ER reports that patient was back to her baseline once her blood pressure improved. Work-up in the ED included CT head, CTA head, MRI. CT head: Negative for any acute findings, CTA head: Noted occlusion of R P2 segment STAFF AIR DEFENSE OFFICER. MRI noted small acute left pontine infarct. Once patient was responsive, her neuro exam was without any focal deficit. On arrival to the ED, lab work was notable for hemoglobin of 9.5, lactate of 2 She was recently seen at [facility] about ~1-2 weeks ago for NSTEMI, generalized weakness along with n/v. Her hgb at [facility] was noted to be ~13 on 06/11. Discussed with ED staff to obtain repeat CBC and rule out acute bleed that could have lead to sudden hypotension. Patient denies vision change. No nausea/vomiting. Denies any pain. No shortness of breath. She reports not having a BM in ~4 days. She is a non smoker. Reports drinking occasionally. Last drink was ~2 weeks ago. She was given 1L IVF in the ED. Neurology - Dr. Zimmer was notified and advised to start patient on aspirin, plavix, folic acid. Allergies pentazocine [From Talwin] Allergy (Unverified 12/13/17 23:04) Unknown promethazine [From Phenergan] Allergy (Unverified 12/13/17 23:04) Unknown - Past Medical/Surgical History -: Hip replacements -: Chronic hip/back Pain Review of Systems 10-point ROS is otherwise unremarkable Physical Examination - Studies Laboratory Data (last 24 hrs) 06/20/23 06/20/23 06/20/23 10:33 10:33 10:33 WBC 9.00 Hgb 9.5 L Hct 28.3 L Plt Count 347 PT 10.3 INR 0.94 APTT 26.1 Sodium 136 Potassium 4.0 BUN 16 Creatinine 0.89 Glucose 72 L Magnesium 2.0 Total Bilirubin 0.1 L AST 38 H ALT 64 H Alkaline Phosphatase 78 Assessment and Plan - Advance Directives Does patient have a Living Will: No Does patient have a Durable POA for Healthcare: No Physician Review Additional Text: Physical Exam: GEN: Alert, orientedx3, NAD HEENT: Normal conjunctiva, sclera anicteric CV: Regular rate and rhythm, no edema Pulm: Nonlabored respirations on room air, clear bilaterally ABD: Soft, nontender, nondistended MSK: No joint swelling / erythema, no contractures Integumentary: No rashes, no lesions Neuro: Normal speech, normal affect, CN II-XII grossly intact, Str 5/5 upper/lower extremities bilaterally, sensation intact; intact visual huddleston vitals reviewed Problem List: Acute CVA, small left pontine infarct Hypotension lactic acidosis elevated LFTs h/o GI bleed Constipation Recent NSTEMI Chronic hip pain Acute CVA, small left pontine infarct CT head (06/20): No acute intracranial abnormality CTA head(06/20): Right P2 STAFF [employer] DEFENSE OFFICER occlusion. Note that the patient has a origin of the right [employer]AFF [employer] DEFENSE OFFICER MRI brain (06/20): Small acute left pontine infarct. Background of moderate chronic small vessel ischemic changes UA: unremarkable Neuro consulted Start aspirin, plavix, folic acid, statin continue IVF PT consult suspect secondary to hypotension; origin of R STAFF AIR DEFENSE OFFICER and occlusion likely chronic Hypotension lactic acidosis elevated LFTs snf reports patients BP had been stable around 140-150s until today, suddenly dropped unclear etiology over medicated - anti-hypertensives, pain meds/benzos, GI bleed initial concern for bleed, however no BM since Friday, no emesis in last few days, no abd pain, and repeat H/H was better denies any recent black emesis/stool, no blood in emesis/stool confirm home medications, restart as appropriate allow for permissive hypertension for now lactic acidosis, 2 -> 2.6, no evidence of infection /sepsis; suspect this is secondary to hypotension / decreased perfusion continue IVF, blood pressure improved, recheck in a few hours elevated LFTs - suspect secondary to hypotension; does have history of alcohol use, last drink was 2 weeks ago, reportedly drank frequently h/o GI bleed Constipation EGD 2019 reported Duodenal ulcer, esophageal erosion, no acute bleeds Recently seen at [facility] for generalized weakness, nausea, vomiting. CT abdomen (06/20): ordered 06/11 hgb was ~13. hgb currently 10.9 on recheck, was 9.5 on initial presentation today no BM since Friday (06/16) Recent NSTEMI trend troponins monitor on tele confirm home medications. Restart as appropriate Cardiology consulted Chronic hip pain Reports multiple hip replacements PRN pain medication confirm home meds Code: Full Dispo: back to SNF in ~2 days Time Spent Managing Pts Care (In Minutes): 75
[2023-06-20 14:26] LABS: Absolute Lymphocytes (CBC) 1.6 K/uL (0.7-4.9); Lymphocytes % 18.2 % (15.3-44.8); MCV 89.9 fL (80-100); Platelets 388 thou/uL (152-406); RBC Red Blood Cell Count 3.56 M/uL (3.86-4.86)
[2023-06-20] MEDS ORDERED: ONDANSETRON 4 MG/2 ML VIAL IV PRN (15:05)
[2023-06-20] MEDS ORDERED: SODIUM CHLORIDE 0.9% 10ML INJ IV PRN (15:45)
--- NOTE | 2023-06-20 16:33 | RAD REPORT ---
EXAM DESCRIPTION: CT - Abdomen Pelvis Wo Contrast - 06/20/2023 3:21 pm CLINICAL HISTORY: recent nausea/vomiting, h/o gi bleed, hypotensive COMPARISON: Abdomen Pelvis W Contrast dated 07/09/2019; Abdomen Pelvis W Contrast dated 03/17/2019 TECHNIQUE: Thin cut axial CT imaging of the abdomen and pelvis was performed without IV contrast. Mu ltiplanar reformats were generated and reviewed. All CT scans are performed using dose optimization technique as appropriate and may include automated exposure control or mA/KV adjustment according to patient size. FINDINGS: No suspicious findings in the lung bases. The liver, spleen,, adrenal glands, and pancreas show no suspicious findings. Gallbladder is suboptim ally distended with mild wall prominence. Symmetric renal contour, without suspicious parenchymal findings within limits of noncontrast techniq ue. No hydroureteronephrosis. Excreted contrast throughout the renal collecting systems and bladder s omewhat limits evaluation. Incidentally noted 1 cm left superior pole cyst No dilated bowel loops or bowel wall thickening. Small duodenal diverticulum is incidentally noted. N onspecific mild localized edema within the mesenteric root, as well as near the ileocecal bowel. The appendix is not discretely visualized. No free air, free fluid or suspicious inflammatory stranding. Moderate stool burden throughout the colon. No abnormal fluid collections. No hernia, mass or bulky l ymphadenopathy. Dense streak artifact in the pelvis related to presence of bilateral hip arthroplasties and bladder c ontrast limits evaluation of the pelvic structures. . The urinary bladder is otherwise without signif icant finding. No suspicious bony findings. Grade 1 anterolisthesis of L4 over L5, with transpedicular fusion screws in place at that level. IMPRESSION: Suboptimally distended gallbladder with mild wall prominence. This could relate to ongoi ng acute cholecystitis in the appropriate clinical setting, or may be secondary to the mesenteric fin dings below. Ings Nonspecific mild edema throughout the mesenteric root and in the region of the ileocecal bowel. The appendix is not clearly visualized. Findings favor nonspecific infectious or inflammatory process such as mesenteritis, or sequelae of enterocolitis. Moderate stool burden throughout the colon. Limited evaluation of the pelvis due to extensive streak artifact as above.
[2023-06-20] MEDS: NA CHLORIDE 0.9% 1,000 ML IV SCH (16:54)
[2023-06-20] MEDS: PANTOPRAZOLE 40 MG INJ IVP SCH (16:54)
[2023-06-20 16:58] VITALS: BMI 19.3
[2023-06-20] MEDS: DOCUSATE NA 100 MG CAP PO SCH (17:19)
[2023-06-20 17:39] LABS: Hematocrit 33.5 % (36.0-45.0); MCV 91.9 fL (80-100); MPV 7.1 fL (7.6-11.3); Platelets 409 thou/uL (152-406); RBC Red Blood Cell Count 3.64 M/uL (3.86-4.86)
[2023-06-20] MEDS: OXYCODONE HCL 5 MG TAB PO PRN (18:54)
[2023-06-20] MEDS ORDERED: PNEUMOCOCCAL VACCINE 0.5 ML IMVAC ONE (20:00)
--- NOTE | 2023-06-20 20:57 | CON ---
Date of Consultation: 06/20/2023 Reason For Consultation: Recent non-STEMI. History Of Present Illness: 73-year-old female, history of GI bleed, questionable recent non-STEMI. She was admitted to [facility] recently. Apparently, she was brought in from residential because she was found unresponsive and slumped over in her chair. I had a long discussion with her. She said that she has not been sleeping for the past 10 days very well and she used to be on Valium which she has n ot received within 2 weeks, but yesterday they gave her 3 of the 10 mg Valium and this morning, she r eceived another one and she felt very groggy and sedated and likely she was over-sedated and did not respond very well. So she was sent to the emergency room and now she is fully alert and awake, and s he denies having any chest pain or nausea or vomiting. No other complaints. Past Medical History: Questionable recent [place]. Medications: Refer reconciliation sheet for detailed list. Allergies: PENTAZOCINE AND PROMETHAZINE. Family History: No premature coronary artery disease or cancer. Social History: She does not smoke or drink. Does not use any drugs. Review of Systems: All systems were reviewed, they were negative except for mentioned in HPI. Physical Examination: Vital Signs: Reviewed. Head and Neck: Pupils are equal, reactive to light. Intact eye movements. No JVD. No cervical lym phadenopathy. Neck is supple. Thyroid is not enlarged. Lungs: Clear to auscultation bilaterally. No rhonchi, wheezing, or crackles. No accessory muscle u se. Heart: Regular rate and rhythm with aortic systolic murmur. Abdomen: Soft, nontender. Bowel sounds positive. No organomegaly. No masses or hernia. No rigidi ty or rebound. Extremities: No edema, clubbing, or cyanosis. Intact pulses. Skin: No rash. No nodule. Neurologic: Alert, awake, oriented x3. No significant focal deficits appreciated. Lymph Nodes: No cervical or axillary lymphadenopathy. Investigations: MRI of the brain showed small acute left pontine infarct and the neck CTA is negativ e. BUN 16, creatinine 0.89. Troponin is negative at the first episode. BUN 16, creatinine 0.89, he moglobin 10.9. Assessment And Recommendations: 1.Acute cerebrovascular accident. Patient is admitted. Aspirin was started and continue statin and the patient is going to be seen by a neurologist and agree with Plavix as well. 2.Aortic systolic ejection murmur, likely aortic valve stenosis. Obtain an echo on Friday. 3.Dyslipidemia. Continue statin. 4.Unresponsiveness, likely due to over-sedation with the medications. 5.History of recent non-STEMI. Obtain echo on Friday. She has zero chest pain. Continue aspirin a nd to try to obtain records from [facility], see if any heart catheterization was done on her and trend 2 m ore sets of cardiac enzymes. SR/MODL Voice ID: [id number] Report ID: [id number]
[2023-06-20] MEDS ORDERED: ATORVASTATIN 40 MG TAB PO SCH (21:00)
[2023-06-20] MEDS: ATORVASTATIN 40 MG TAB PO SCH (21:16)
[2023-06-20] MEDS: MELATONIN 3 MG TABLET PO SCH (21:16)
[2023-06-20] MEDS ORDERED: GABAPENTIN 300 MG CAP PO ONE (21:40)
[2023-06-20] MEDS ORDERED: NA CHLORIDE 0.9% 500 ML IV ONE (23:52)
[2023-06-21] MEDS: OXYCODONE HCL 5 MG TAB PO PRN ×4 (00:37→20:28)
[2023-06-21] MEDS: NA CHLORIDE 0.9% 1,000 ML IV SCH (05:00)
[2023-06-21 06:38] LABS: Absolute Lymphocytes (CBC) 1.4 K/uL (0.7-4.9); Hematocrit 30.8 % (36.0-45.0); Lymphocytes % 11.2 % (15.3-44.8); MCV 90.9 fL (80-100); MPV 6.8 fL (7.6-11.3); Platelets 336 thou/uL (152-406); RBC Red Blood Cell Count 3.39 M/uL (3.86-4.86)
--- NOTE | 2023-06-21 07:11 | P.PN ---
Date of Service: 06/21/23 Subjective: Feeling better, back to normal self no new / worsening problems chronic back pain and knee pain ROS: 10 point ROS as noted above, otherwise negative Physical Exam: GEN: Alert, oriented, NAD HEENT: Normal conjunctiva, sclera anicteric CV: Regular rate and rhythm, no edema Pulm: Nonlabored respirations on room air ABD: Soft, nontender, nondistended Integumentary: No rashes Neuro: Normal speech, normal affect vitals reviewed Problem List: Acute CVA, small left pontine infarct Hypotension, unclear etiology, suspect polypharmacy lactic acidosis secondary to hypotension elevated LFTs h/o GI bleed Constipation Recent NSTEMI Chronic hip pain Acute CVA, small left pontine infarct CT head (06/20): No acute intracranial abnormality CTA head(06/20): Right P2 CYTOGENETIC TECHNICIAN occlusion. Note that the patient has a origin of the right CYTOGENETIC TECHNICIAN MRI brain (06/20): Small acute left pontine infarct. Background of moderate chronic small vessel ischemic changes UA: unremarkable Neuro consulted suspect R CYTOGENETIC TECHNICIAN occlusion is chronic small left pontine infarct secondary to hypotension cont aspirin, plavix, folic acid, statin dc IVF PT consult permissive hypertension BP at times >170 systolic will restart low doses of anti-hypertensives, stepwise and as appropriate Hypotension, unclear etiology, suspect polypharmacy lactic acidosis secondary to hypotension elevated LFTs residential reports patients BP had been stable around 140-150s until today, suddenly dropped unclear etiology; suspect over medicated - anti-hypertensives, pain meds/benzos, GI bleed initial concern for bleed, however no BM since Friday, no emesis in last few days, no abd pain, and repeat H/H was better denies any recent black emesis/stool, no blood in emesis/stool confirm home medications, restart as appropriate lactic acidosis, no evidence of infection /sepsis; suspect this is secondary to hypotension / decreased perfusion continue IVF, blood pressure improved, recheck in a few hours elevated LFTs - suspect secondary to hypotension; does have history of alcohol use, last drink was 2 weeks ago, reportedly drank frequently h/o GI bleed Constipation EGD 2018 reported Duodenal ulcer, esophageal erosion, no acute bleeds Recently seen at [facility] for generalized weakness, nausea, vomiting. CT abdomen (06/20): ordered 06/11 hgb was ~13. hgb currently 10.5. monitor H&H. no BM since Friday (06/16) Recent NSTEMI troponins negative x2 monitor on tele confirm home medications. Restart as appropriate Cardiology consulted obtain echo on friday Chronic hip pain Reports multiple hip replacements PRN pain medication confirm home meds Code: Full Dispo: back to SNF in ~2-3 days
[2023-06-21 08:06] LABS: Albumin 2.5 g/dL (3.4-5.0); Bilirubin Total 0.1 mg/dL (0.2-1.0); Magnesium 1.9 mg/dL (1.6-2.4); Potassium 3.7 mEq/L (3.5-5.1); Protein, Total 5.2 g/dL (6.4-8.2); Troponin High Sensitivity 30.1 pg/mL (<58.9)
[2023-06-21] MEDS: CLOPIDOGREL 75 MG TABLET PO SCH (09:23)
[2023-06-21] MEDS: ASPIRIN EC 81 MG TAB PO SCH (09:23)
[2023-06-21] MEDS: DOCUSATE NA 100 MG CAP PO SCH ×2 (09:23→20:29)
[2023-06-21] MEDS: PANTOPRAZOLE 40 MG INJ IVP SCH ×2 (09:24→20:29)
[2023-06-21] MEDS ORDERED: POTASSIUM CL SA 10 MEQ TAB PO ONE (13:33)
[2023-06-21] MEDS: carvediloL 6.25 MG TAB PO SCH (16:41)
[2023-06-21] MEDS: MELATONIN 3 MG TABLET PO SCH (20:29)
[2023-06-21] MEDS: ATORVASTATIN 40 MG TAB PO SCH (20:29)
[2023-06-22] MEDS: OXYCODONE HCL 5 MG TAB PO PRN ×3 (05:48→19:54)
[2023-06-22 06:39] LABS: Magnesium 1.7 mg/dL (1.6-2.4); Potassium 4.5 mEq/L (3.5-5.1)
--- NOTE | 2023-06-22 07:34 | P.PN ---
Date of Service: 06/22/23 Subjective: Feels like normal self no new / worsening problems no BM, +flatus ROS: 10 point ROS as noted above, otherwise negative Physical Exam: GEN: Alert, oriented, NAD HEENT: Normal conjunctiva, sclera anicteric CV: Regular rate and rhythm, no edema Pulm: Nonlabored respirations on room air ABD: Soft, nontender, nondistended Integumentary: No rashes Neuro: Normal speech, normal affect vitals reviewed Problem List: Acute CVA, small left pontine infarct Hypotension, unclear etiology, suspect polypharmacy lactic acidosis secondary to hypotension elevated LFTs h/o GI bleed Constipation Recent NSTEMI Chronic hip pain Acute CVA, small left pontine infarct CT head (06/20): No acute intracranial abnormality CTA head(06/20): Right P2 SNAKER TRACTOR DRIVER occlusion. Note that the patient has a origin of the right SNAKER TRACTOR DRIVER MRI brain (06/20): Small acute left pontine infarct. Background of moderate chronic small vessel ischemic changes UA: unremarkable Neuro consulted suspect R SNAKER TRACTOR DRIVER occlusion is chronic small left pontine infarct secondary to hypotension cont aspirin, plavix, folic acid, statin dc IVF PT consult permissive hypertension cont low doses of anti-hypertensives, stepwise and as appropriate Hypotension, unclear etiology, suspect polypharmacy lactic acidosis secondary to hypotension elevated LFTs [facility] reports patients BP had been stable around 140-150s until today, suddenly dropped unclear etiology; suspect over medicated - anti-hypertensives, pain meds/benzos, GI bleed initial concern for bleed, however no BM since Friday, no emesis in last few days, no abd pain, and repeat H/H was better denies any recent black emesis/stool, no blood in emesis/stool confirm home medications, restart as appropriate lactic acidosis, no evidence of infection /sepsis; suspect this is secondary to hypotension / decreased perfusion continue IVF, blood pressure improved, recheck in a few hours elevated LFTs - suspect secondary to hypotension; does have history of alcohol use, last drink was 2 weeks ago, reportedly drank frequently h/o GI bleed Constipation EGD 2019 reported Duodenal ulcer, esophageal erosion, no acute bleeds Recently seen at [facility] for generalized weakness, nausea, vomiting. CT abdomen (06/20): ordered 06/11 hgb was ~13. hgb currently 10.5. monitor H&H. no BM since Friday (06/16) Recent NSTEMI troponins negative x2 monitor on tele confirm home medications. Restart as appropriate Cardiology consulted obtain echo on friday Chronic hip pain Reports multiple hip replacements PRN pain medication Code: Full Dispo: back to SNF in ~1-2 days Pending Echo on friday
[2023-06-22] MEDS: PANTOPRAZOLE 40 MG INJ IVP SCH ×2 (09:00→19:54)
[2023-06-22] MEDS ORDERED: MAGNESIUM SULFATE 1 gm IVPB 1 GM/100 ML BAG IV ONE (09:00)
[2023-06-22] MEDS: ASPIRIN EC 81 MG TAB PO SCH (10:12)
[2023-06-22] MEDS: carvediloL 6.25 MG TAB PO SCH ×2 (10:12→18:33)
[2023-06-22] MEDS: CLOPIDOGREL 75 MG TABLET PO SCH (10:12)
[2023-06-22] MEDS: lisinopriL 10 MG TAB PO SCH (10:12)
[2023-06-22] MEDS: DOCUSATE NA 100 MG CAP PO SCH ×2 (10:12→19:55)
[2023-06-22] MEDS: MELATONIN 3 MG TABLET PO SCH (19:54)
[2023-06-22] MEDS: ATORVASTATIN 40 MG TAB PO SCH (19:55)
[2023-06-23] MEDS: OXYCODONE HCL 5 MG TAB PO PRN ×4 (02:00→21:41)
[2023-06-23 03:29] LABS: Absolute Lymphocytes (CBC) 1.4 K/uL (0.7-4.9); Lymphocytes % 10.9 % (15.3-44.8); MCV 90.3 fL (80-100); MPV 7.1 fL (7.6-11.3); Platelets 313 thou/uL (152-406); RBC Red Blood Cell Count 3.32 M/uL (3.86-4.86)
[2023-06-23 03:38] LABS: Magnesium 2.1 mg/dL (1.6-2.4); Potassium 4.7 mEq/L (3.5-5.1)
--- NOTE | 2023-06-23 07:26 | P.PN ---
Date of Service: 06/23/23 Subjective: no new / worsening problems Feeling back to usual self feels relief with current pain medication for chronic hip pain ROS: 10 point ROS as noted above, otherwise negative Physical Exam: GEN: Alert, oriented, NAD HEENT: Normal conjunctiva, sclera anicteric CV: Regular rate and rhythm, no edema Pulm: Nonlabored respirations on room air ABD: Soft, nontender, nondistended Integumentary: No rashes Neuro: Normal speech, normal affect vitals reviewed Problem List: Acute CVA, small left pontine infarct Hypotension, unclear etiology, suspect polypharmacy lactic acidosis secondary to hypotension elevated LFTs h/o GI bleed Constipation Recent NSTEMI Chronic hip pain Acute CVA, small left pontine infarct CT head (06/20): No acute intracranial abnormality CTA head(06/20): Right P2 FURNITURE DELIVERY DRIVER occlusion. Note that the patient has a origin of the right FURNITURE DELIVERY DRIVER MRI brain (06/20): Small acute left pontine infarct. Background of moderate chronic small vessel ischemic changes UA: unremarkable Neuro consulted suspect R FURNITURE DELIVERY DRIVER occlusion is chronic small left pontine infarct secondary to hypotension cont aspirin, plavix, folic acid, statin dc IVF PT consult permissive hypertension cont low doses of anti-hypertensives, stepwise and as appropriate Hypotension, unclear etiology, suspect polypharmacy lactic acidosis secondary to hypotension elevated LFTs senior living reports patients BP had been stable around 140-150s until today, suddenly dropped unclear etiology; suspect over medicated - anti-hypertensives, pain meds/benzos, GI bleed initial concern for bleed, however no BM since Friday, no emesis in last few days, no abd pain, and repeat H/H was better denies any recent black emesis/stool, no blood in emesis/stool confirm home medications, restart as appropriate lactic acidosis, no evidence of infection /sepsis; suspect this is secondary to hypotension / decreased perfusion continue IVF, blood pressure improved, recheck in a few hours elevated LFTs - suspect secondary to hypotension; does have history of alcohol use, last drink was 2 weeks ago, reportedly drank frequently h/o GI bleed Constipation EGD 2019 reported Duodenal ulcer, esophageal erosion, no acute bleeds Recently seen at [facility] for generalized weakness, nausea, vomiting. CT abdomen (06/20): ordered 06/11 hgb was ~13. hgb currently 10.3. monitor H&H. no BM since Friday (06/16) Recent NSTEMI troponins negative x2 monitor on tele confirm home medications. Restart as appropriate Cardiology consulted Echo ordered Chronic hip pain Reports multiple hip replacements PRN pain medication Code: Full Dispo: back to SNF in ~1-2 days Pending Echo on friday
[2023-06-23] MEDS: DOCUSATE NA 100 MG CAP PO SCH ×2 (08:42→21:41)
[2023-06-23] MEDS: CLOPIDOGREL 75 MG TABLET PO SCH (08:42)
[2023-06-23] MEDS: carvediloL 6.25 MG TAB PO SCH ×2 (08:42→18:15)
[2023-06-23] MEDS: ASPIRIN EC 81 MG TAB PO SCH (08:42)
[2023-06-23] MEDS: lisinopriL 10 MG TAB PO SCH (08:43)
[2023-06-23] MEDS: PANTOPRAZOLE 40 MG INJ IVP SCH ×2 (08:43→21:42)
--- NOTE | 2023-06-23 18:08 | EKG ---
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
[2023-06-23] MEDS: MELATONIN 3 MG TABLET PO SCH (21:00)
--- NOTE | 2023-06-23 21:26 | PN ---
Date of Progress Note: 06/23/2023 Subjective: Seen by bedside. Doing clinically well. No chest pain. Review of Systems: No chest pain, shortness of breath, orthopnea, cough. No nausea, vomiting, diarrhea. All other syst ems reviewed are negative. Physical Examination: Vital Signs: Reviewed. Head and Neck: Pupils are equal, reactive to light. Intact eye movements. No JVD. No cervical lym phadenopathy. Neck: Supple. Thyroid is not enlarged. Lungs: Clear to auscultation bilaterally. No rhonchi, wheezing, or crackles. No accessory muscle u se. Heart: Regular rate and rhythm. No extra sounds. Abdomen: Soft, nontender. Bowel sounds positive. No organomegaly. No masses or hernia. No rigidi ty or rebound. Extremities: No clubbing, cyanosis. Intact pulses. Skin: No rash. Neurologic: Alert, awake, oriented x3. No acute focal deficits appreciated. Lymph Nodes: No cervical lymphadenopathy. Investigations: Labs reviewed. Assessment/recommendations: 1.Recent ST-elevation myocardial infarction, but her cardiac enzymes are negative and she has no kira st pain. No further workup is needed. We will plan for outpatient evaluation on this. 2.Dyslipidemia. Continue statin. 3.Altered mental status, likely due to oversedation on medication, specifically the Valium and she seems to be at her baseline now. Cardiology will sign off on the eloina leal SR/JENAE Voice ID: [id number] Report ID: [id number]
[2023-06-23] MEDS: ATORVASTATIN 40 MG TAB PO SCH (21:41)
[2023-06-24] MEDS: OXYCODONE HCL 5 MG TAB PO PRN ×4 (04:15→22:53)
[2023-06-24 05:05] LABS: Absolute Lymphocytes (CBC) 1.1 K/uL (0.7-4.9); Hematocrit 32.3 % (36.0-45.0); MCV 90.9 fL (80-100); MPV 7.1 fL (7.6-11.3); Platelets 358 thou/uL (152-406); RBC Red Blood Cell Count 3.55 M/uL (3.86-4.86)
[2023-06-24 06:19] LABS: Potassium 5.2 mEq/L (3.5-5.1)
[2023-06-24] MEDS: carvediloL 6.25 MG TAB PO SCH ×2 (08:00→16:54)
[2023-06-24] MEDS: ASPIRIN EC 81 MG TAB PO SCH (08:50)
[2023-06-24] MEDS: DOCUSATE NA 100 MG CAP PO SCH ×2 (08:50→21:26)
[2023-06-24] MEDS: CLOPIDOGREL 75 MG TABLET PO SCH (08:50)
[2023-06-24] MEDS: PANTOPRAZOLE 40 MG INJ IVP SCH ×2 (08:51→21:26)
[2023-06-24] MEDS: lisinopriL 10 MG TAB PO SCH (09:00)
--- NOTE | 2023-06-24 17:21 | P.PN ---
Subjective Date of Service: 06/24/23 Chief Complaint: Acute CVA Physical Examination - Vital Signs Temperature: 98.3 F Blood Pressure: 129/69 Pulse: 77 Respirations: 18 Pulse Ox (%): 96 Assessment And Plan - Plan Physical Exam: GEN: Alert, oriented, NAD HEENT: Normal conjunctiva, sclera anicteric CV: Regular rate and rhythm, no edema Pulm: Nonlabored respirations, clear to auscultation bilaterally. 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 Background of moderate chronic small vessel ischemic changes UA: unremarkable Neuro consulted suspect R COPY CHASER occlusion is chronic small left pontine infarct secondary to hypotension cont aspirin, plavix, folic acid, statin Continue PT. Patient is currently normotensive. cont low doses of anti-hypertensives, stepwise and as appropriate Hypotension, unclear etiology, suspect polypharmacy lactic acidosis secondary to hypotension elevated LFTs Reported drop in blood pressure in the alf. Likely medication related. lactic acidosis, no evidence of infection /sepsis; suspect this is secondary to hypotension / decreased perfusion Blood pressure has improved and patient is currently normotensive. elevated LFTs - suspect secondary to hypotension; does have history of alcohol use, last drink was 2 weeks ago, reportedly drank frequently h/o GI bleed Constipation EGD 2019 reported Duodenal ulcer, esophageal erosion, no acute bleeds Recently seen at [facility] for generalized weakness, nausea, vomiting. CT abdomen (06/20): Showed mesenteric edema, distended gallbladder, acute cholecystitis was ruled out, moderate stool burden Patient is asymptomatic, no abdominal pain. Monitor. 06/11 hgb was ~13. hgb currently 10.3. monitor H&H. Laxatives. Recent NSTEMI troponins negative x2 monitor on tele confirm home medications. Restart as appropriate Seen by cardiology. Patient had a recent cardiac cath with patent coronary arteries. Elevated troponin deemed secondary to demand ischemia. No further intervention per cardiology. Chronic hip pain/right knee pain PRN pain medication Continue PT.
[2023-06-24] MEDS ORDERED: MAGNESIUM CITRATE 300 ML BOT PO SCH ×2 (18:00→20:00)
[2023-06-24] MEDS: MELATONIN 3 MG TABLET PO SCH (21:00)
[2023-06-24] MEDS: ATORVASTATIN 40 MG TAB PO SCH (21:26)
[2023-06-25 03:37] LABS: Absolute Lymphocytes (CBC) 1.2 K/uL (0.7-4.9); Lymphocytes % 9.6 % (15.3-44.8); MCV 90.9 fL (80-100); MPV 7.3 fL (7.6-11.3); Platelets 287 thou/uL (152-406)
[2023-06-25 03:55] LABS: Potassium 4.7 mEq/L (3.5-5.1)
[2023-06-25] MEDS: OXYCODONE HCL 5 MG TAB PO PRN (06:27)
[2023-06-25] MEDS: carvediloL 6.25 MG TAB PO SCH (08:00)
[2023-06-25] MEDS: DOCUSATE NA 100 MG CAP PO SCH (08:25)
[2023-06-25] MEDS: ASPIRIN EC 81 MG TAB PO SCH (08:25)
[2023-06-25] MEDS: CLOPIDOGREL 75 MG TABLET PO SCH (08:25)
[2023-06-25] MEDS: lisinopriL 10 MG TAB PO SCH (08:26)
[2023-06-25] MEDS: PANTOPRAZOLE 40 MG INJ IVP SCH (08:27)
--- NOTE | 2023-06-25 08:39 | P.DS ---
Admission Date: 06/20/23 Discharge Date: 06/25/23 Disposition: TRANSFER TO DETENTION Reason for Admission: Acute CVA Brief History of Present Illness: 73 yo F, PMH: h/o GI bleed, Constipation, recent NSTEMI, recent gastroenteritis (recent hospitalization at [facility] 06/11-06/17) Patient was brought from assisted after being found unresponsive/slumped over in her chair only responsive to painful stimuli. At that time she was noted to be hypotensive. Patient was just recently admitted to the assisted, nursing staff reported patient was continued on her medications from discharge from [facility]. Upon arrival to the ED, her initial blood pressure was 88/57, pulse: 80. ER reported that she was unresponsive, she was given IV fluids, and eventually "woke up". ER reports that patient was back to her baseline once her blood pressure improved. Work-up in the ED included CT head, CTA head, MRI. CT head: Negative for any acute findings, CTA head: Noted occlusion of R P2 segment GREETER. MRI noted small acute left pontine infarct. Once patient was responsive, her neuro exam was without any focal deficit. On arrival to the ED, lab work was notable for hemoglobin of 9.5, lactate of 2 She was recently seen at [facility] about ~1-2 weeks ago for NSTEMI, generalized weakness along with n/v. Her hgb at [facility] was noted to be ~13 on 06/11. She was given 1L IVF in the ED. Neurology - Dr. Zimmer was notified and advised to start patient on aspirin, plavix, folic acid. Patient was hospitalized for further management. Hospital Course: Problem List: Acute CVA, small left pontine infarct Hypotension, unclear etiology, suspect polypharmacy lactic acidosis secondary to hypotension elevated LFTs h/o GI bleed Constipation Recent NSTEMI Chronic hip pain Acute CVA, small left pontine infarct CT head (06/20): No acute intracranial abnormality CTA head(06/20): Right P2 GREETER occlusion. Note that the patient has a origin of the right GREETER MRI brain (06/20): Small acute left pontine infarct. Background of moderate chronic small vessel ischemic changes UA: unremarkable Neuro consulted, patient seen by Dr. Zimmer who suspected the R GREETER occlusion is chronic small left pontine infarct secondary to hypotension Managed with aspirin, plavix, folic acid, statin Patient seen and evaluated repeat. She had no focal deficit. Her blood pressure improved, became hypertensive necessitating resumption of her antihypertensives. Hypotension, unclear etiology, suspect polypharmacy lactic acidosis secondary to hypotension elevated LFTs Reported drop in blood pressure in the assisted. Likely medication related. lactic acidosis, no evidence of infection /sepsis; suspect this is secondary to hypotension / decreased perfusion Blood pressure has improved and patient is currently normotensive. elevated LFTs - suspect secondary to hypotension; does have history of alcohol use, last drink was 2 weeks ago. h/o GI bleed Constipation EGD 2018 reported Duodenal ulcer, esophageal erosion, no acute bleeds Recently seen at [facility] for generalized weakness, nausea, vomiting. CT abdomen (06/20): Showed mesenteric edema, distended gallbladder, acute cholecystitis was not ruled out, moderate stool burden Patient has been asymptomatic, no abdominal pain. Hemoglobin dropped but remained stable during the hospital stay. Laxatives. No evidence of active bleeding. Recent NSTEMI troponins negative x2 Seen by cardiology. Patient had a recent cardiac cath with patent coronary arteries. Elevated troponin deemed secondary to demand ischemia. No further intervention per cardiology. Chronic hip pain/right knee pain PRN pain medication Patient received PT. She is ambulating with a walker. She is discharged to home with home health for PT and fdc. Vital Signs/Physical Exam: Temp Pulse Resp BP Pulse Ox 97.7 F 76 16 107/57 L 93 06/25/23 08:00 06/25/23 08:26 06/25/23 08:00 06/25/23 08:26 06/25/23 08:00 General: Alert, In no apparent distress, Oriented x3 HEENT: Mucous membr. moist/pink Neck: JVD not distended Respiratory: Clear to auscultation bilaterally, Normal air movement Cardiovascular: No edema, Regular rate/rhythm, Normal S1 S2 Gastrointestinal: Normal bowel sounds, Soft and benign, Non-distended Musculoskeletal: No swelling Integumentary: No cyanosis Neurological: Normal speech, Normal strength at 5/5 x4 extr Laboratory Data at Discharge: WBC 12.20 thou/uL (4.3-10.9) H 06/25/23 02:12 Hgb 10.3 g/dL (12.0-15.0) L 06/25/23 02:12 Hct 30.0 % (36.0-45.0) L 06/25/23 02:12 Plt Count 287 thou/uL (152-406) 06/25/23 02:12 PT 10.3 SECONDS (9.5-12.5) 06/20/23 10:33 INR 0.94 06/20/23 10:33 APTT 26.1 SECONDS (24.3-36.9) 06/20/23 10:33 Sodium 132 mEq/L (136-145) L 06/25/23 02:12 Potassium 4.7 mEq/L (3.5-5.1) 06/25/23 02:12 BUN 30 mg/dL (7-18) H 06/25/23 02:12 Creatinine 1.00 mg/dL (0.55-1.02) 06/25/23 02:12 Glucose 111 mg/dL (74-106) H 06/25/23 02:12 Magnesium 2.1 mg/dL (1.6-2.4) 06/23/23 02:35 Total Bilirubin 0.1 mg/dL (0.2-1.0) L 06/21/23 06:16 AST 35 U/L (15-37) 06/21/23 06:16 ALT 72 U/L (13-56) H 06/21/23 06:16 Alkaline Phosphatase 91 U/L (45-117) 06/21/23 06:16 Home Medications: Acetaminophen [Tylenol] 650 mg PO Q6HR 06/20/23 Aspirin Chewable [Aspirin Chewable*] 81 mg PO DAILY 06/20/23 Atorvastatin Calcium 40 mg PO BEDTIME 06/20/23 Cyanocobalamin (Vitamin B-12) [Vitamin B-12] 1,000 mcg PO DAILY 06/20/23 Melatonin 3 mg PO BEDTIME 06/20/23 Clopidogrel Bisulfate [Plavix*] 75 mg PO DAILY 06/25/23 Docusate [Colace Cap*] 100 mg PO BID cap 06/25/23 Pantoprazole [Protonix Tab] 40 mg PO BID #60 tab 06/25/23 carvediloL [Coreg*] 6.25 mg PO BIDWM tab 06/25/23 lisinopriL [Prinivil*] 10 mg PO DAILY tab 06/25/23 New Medications: Pantoprazole [Protonix Tab] 40 mg PO BID #60 tab Followup: Konrad Kuo MD [Primary Care Provider] - Time spent managing pt's care (in minutes): 34
[2023-06-25 09:31] VITALS: O2SAT 93
--- NOTE | 2023-06-25 10:20 | ECHO ---
HEIGHT: 5 ft 8 in WEIGHT: 130 lb 1.6 oz DATE OF STUDY: 06/24/[address]: Kobe Mojica MD 2-DIMENSIONAL: YES M.MODE: YES DOPPLER: YES COLOR FLOW: YES TDS: PORTABLE: YES DEFINITY: BUBBLE STUDY: DIAGNOSIS: SYNCOPE/ MURMUR/ RECENT NON ST ELEVATION MYOCARDIAL INFARCTION CARDIAC HISTORY: CATHERIZATION: SURGERY: PROSTHETIC VALVE: PACEMAKER: MEASUREMENTS (cm) DIASTOLIC (NORMALS) SYSTOLIC (NORMALS) IVSd 0.9 (0.6-1.2) LA Diam 2.4 (1.9-4.0) LVEF 79% LVIDd 3.9 (3.5-5.7) LVIDs 2.1 (2.0-3.5) %FS 47% LVPWd 1.0 (0.6-1.2) Ao Diam 3.2 (2.0-3.7) 2 DIMENSIONAL ASSESSMENT: RIGHT ATRIUM: NORMAL LEFT ATRIUM: NORMAL RIGHT VENTRICLE: NORMAL LEFT VENTRICLE: NORMAL TRICUSPID VALVE: MILD TRICUSPID REGURGITATION MITRAL VALVE: MITRAL ANNULAR CALCIFICATION WITH MILD MITRAL REGURGITATION PULMONIC VALVE: NORMAL AORTIC VALVE: MILD AORTIC INSUFFICIENCY PERICARDIAL EFFUSION: NONE AORTIC ROOT: NORMAL LEFT VENTRICULAR WALL MOTION: NORMAL DOPPLER/COLOR FLOW: SEE BELOW COMMENTS: 1. NORMAL LEFT VENTRICULAR EJECTION FRACTION 60-65% WITH NORMAL WALL MOTION 2. GRADE I DIASTOLIC DYSFUNCTION 3. MILD TRICUSPID REGURGITATION 4. MITRAL ANNULAR CALCIFICATION WITH MILD MITRAL REGURGITATION 5. MILD AORTIC INSUFFICIENCY TECHNOLOGIST: ISABEL RANGEL
[2023-06-25 12:33] VITALS: BP 100/68; TEMP 97
== END 2023-06-25 15:20 | DRG 64 ==
LOC: ER 10:05 → ERHOLD 15:25 → 2ND 16:18
PROVIDERS: ADMIT Hospitalist; ATTEND Internal Medicine
DX: I63.9 Cerebral infarction, unspecified (principal); G92.8 Other toxic encephalopathy; E87.20 Acidosis, unspecified; I24.8 Other forms of acute ischemic heart disease; G89.29 Other chronic pain; K59.00 Constipation, unspecified; I35.8 Other nonrheumatic aortic valve disorders; I95.2 Hypotension due to drugs; T50.905A Adverse effect of unspecified drugs, medicaments and biological substances, initial encounter; T42.4X5A Adverse effect of benzodiazepines, initial encounter; I25.2 Old myocardial infarction; R79.89 Other specified abnormal findings of blood chemistry; Z88.8 Allergy status to other drugs, medicaments and biological substances; Z79.82 Long term (current) use of aspirin; Z79.02 Long term (current) use of antithrombotics/antiplatelets; Z79.899 Other long term (current) drug therapy; Z96.649 Presence of unspecified artificial hip joint
CPT/HCPCS: 36415; 70450; 70496; 70498; 70551; 71045; 74176; 80048; 80053; 80076; 80307; 81001; 82947; 83605; 83735; 84484; 85025; 85027; 85610; 85730; 93005; 93306; 97116; 97161; 97530; 99285; C9113; J3475; J7030; J7040; Q9967

== ENCOUNTER 2023-06-25 19:44 | Observation (INO) | payer OTHER, BC ==
--- OUTSIDE RECORDS SUMMARY | 2023-06-25 20:04 | XMS REPORT | Continuity of Care Document ---
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 Infuse Over: 1 hr, [...] 0.9% 7-24 (Same as: l 21:09: BD [place] 00 Posiflush) Sodium 2020-0 No 1,000 mL, [...] Chloride 7-24 1,000 l 0.9% 21:09: ml/hr, [place] (Bolus) IV 00 Infuse Over: 1 hr, Route: IV, 1,000, Drug form: INJ, ONCE, Priority: STAT, Dosing Weight 54.545 kg, Start date: 05/26/20 16:09:00 CDT, Stop date: 05/26/20 16:09:00 CDT, 0 Saline 2020-0 No Notes: [facility] Flush 0.9% 7-24 (Same as: l 21:09: BD [place] 00 Posiflush) Sodium 2020-0 No 1,000 mL, [facility] a Chloride 7-24 1,000 l 0.9% 21:09: ml/hr, [place] (Bolus) IV 00 Infuse Over: 1 hr, Route: IV, 1,000, Drug form: INJ, ONCE, Priority: STAT, Dosing Weight 54.545 kg, Start date: 05/26/20 16:09:00 CDT, Stop date: 05/26/20 16:09:00 CDT, 0 Saline 2020-0 No Notes: [facility] Flush 0.9% 7-24 (Same as: l 21:09: BD [place] 00 Posiflush) Sodium 2020-0 No 1,000 mL, [facility] a Chloride 7-24 1,000 l 0.9% 21:09: ml/hr, [place] (Bolus) IV 00 Infuse Over: 1 hr, Route: IV, 1,000, Drug form: INJ, ONCE, Priority: STAT, Dosing Weight 54.545 kg, Start date: 05/26/20 16:09:00 CDT, Stop date: 05/26/20 16:09:00 CDT, 0 gabapentin 2019-0 Yes 800mg Q.5D Take [address] [facility] [address] [facility] (NEURONTIN) 9-11 [facility] 800 MG 14:14: mouth 2 [facility] tablet 47 (two) Center times daily. gabapentin 2019-0 Yes 800mg Q.5D Take [address] [facility] [address] [facility] (NEURONTIN) 9-11 [facility] 800 MG 14:14: mouth 2 Medical tablet 47 (two) Center times daily. polyethylen 2019-0 Yes 17g QD Take [address] [facility] glycol 9-11 by mouth [facility] (GLYCOLAX) 00:00: daily. Medic al 17 00 Center gram/dose powder polyethylen 2019-0 Yes 17g QD Take [address] [facility] glycol 9-11 by [facility] (GLYCOLAX) 00:00: daily. [facility] 17 00 Center gram/dose powder prochlorper 2019-[address] [facility] azine 9-03 [facility] (COMPAZINE) 00:00: Medica l 10 MG 00 Center tablet prochlorper 2019-[address] [facility] azine 9-03 [facility] (COMPAZINE) 00:00: Medica l 10 MG 00 Center tablet tiZANidine 2019-0 Yes 2mg Q.5D Take [address] [facility] (ZANAFLEX) 8-28 by mouth 2 [facility] 2 MG tablet 00:00: (two) Medic al 00 times Center daily. tiZANidine 2019-0 Yes 2mg Q.5D Take [address] [facility] [address] [facility] (ZANAFLEX) 8-28 by mouth 2 [facility] 2 MG tablet 00:00: (two) Medic al 00 times Center daily. ALPRAZolam 2019-0 Yes 1mg [id number] Take [address] [facility] (XANAX) 1 06-03 [id number] by mouth 3 [facility] tablet 00:00: 3D (three) Medic al 00 times Center daily. ALPRAZolam 2019-0 Yes 1mg [id number] Take [address] [facility] (XANAX) 1 06-03 [id number] by mouth 3 [facility] tablet 00:00: 3D (three) Medic al 00 times Center daily. lactulose Yes as needed [facility] (CHRONULAC) 6-27 . [facility] 10 gram/15 00:00: Medical mL solution 00 Center lactulose Yes as needed [facility] (CHRONULAC) 6-27 . [facility] 10 gram/15 00:00: Medical mL solution 00 [place] tramadol 2016-11 Yes 50 mg = 1 [...] kg, Priority: STAT, Start date: 10/14/17 0:50:00 [employer], Stop date: 10/14/17 0:50:00 [employer] Fentanyl 2017-1 No 50 [facility] 2-12 microgram, l 06:50: Route: [place] 00 IVP, ONCE, Dosing Weight 61.364, kg, Priority: STAT, Start date: 10/14/17 0:50:00 [employer], Stop date: 10/14/17 0:50:00 [employer] Fentanyl 2017- No 50 [facility] 2-12 microgram, l 06:50: Route: [place] 00 IVP, ONCE, Dosing Weight 61.364, kg, Priority: STAT, Start date: 10/14/17 0:50:00 [employer], Stop date: 10/14/17 0:50:00 [employer] Fentanyl 2017- No 50 [facility] 2-12 microgram, l 06:50: Route: [place] 00 IVP, ONCE, Dosing Weight 61.364, kg, Priority: STAT, Start date: 10/14/17 0:50:00 [employer], Stop date: 10/14/17 0:50:00 [employer] Fentanyl 2017-1 No 50 [facility] 2-12 microgram, l 06:50: Route: [place] 00 IVP, ONCE, Dosing Weight 61.364, kg, Priority: STAT, Start date: 10/14/17 0:50:00 [employer], Stop date: 10/14/17 0:50:00 [employer] Fentanyl 2017-1 No 50 [facility] 2-12 microgram, l 06:50: Route: [place] 00 IVP, ONCE, Dosing Weight 61.364, kg, Priority: STAT, Start date: 10/14/17 0:50:00 [employer], Stop date: 10/14/17 0:50:00 [employer] Fentanyl 2017- No 50 [facility] 2-12 microgram, l 06:50: Route: [place] 00 IVP, ONCE, Dosing Weight 61.364, kg, Priority: STAT, Start date: 10/14/17 0:50:00 [employer], Stop date: 10/14/17 0:50:00 [employer] Fentanyl 2017-1 No 50 [facility] 2-12 microgram, l 06:50: Route: [place] 00 IVP, ONCE, Dosing Weight 61.364, kg, Priority: STAT, Start date: 10/14/17 0:50:00 [employer], Stop date: 10/14/17 0:50:00 [employer] Fentanyl 2017-1 No 50 [facility] 2-12 microgram, l 06:50: Route: [place] 00 IVP, ONCE, Dosing Weight 61.364, kg, Priority: STAT, Start date: 10/14/17 0:50:00 [employer], Stop date: 10/14/17 0:50:00 [employer] Fentanyl 2017-1 No 50 [facility] 2-12 microgram, l 06:50: Route: [place] 00 IVP, ONCE, Dosing Weight 61.364, kg, Priority: STAT, Start date: 10/14/17 0:50:00 [employer], Stop date: 10/14/17 0:50:00 [employer] Fentanyl 2017- No 50 [facility] 2-12 microgram, l 06:50: Route: [place] 00 IVP, ONCE, Dosing Weight 61.364, kg, Priority: STAT, Start date: 10/14/17 0:50:00 [employer], Stop date: 10/14/17 0:50:00 [employer] Fentanyl 2017-1 No 50 [facility] 2-12 microgram, l 06:50: Route: [place] 00 IVP, ONCE, Dosing Weight 61.364, kg, Priority: STAT, Start date: 10/14/17 0:50:00 [employer], Stop date: 10/14/17 0:50:00 [employer] Fentanyl 2017-1 No 50 [facility] 2-12 microgram, l 06:50: Route: [place] 00 IVP, ONCE, Dosing Weight 61.364, kg, Priority: STAT, Start date: 10/14/17 0:50:00 [employer], Stop date: 10/14/17 0:50:00 [employer] Fentanyl 2017-1 No 50 [facility] 2-12 microgram, l 06:50: Route: [place] 00 IVP, ONCE, Dosing Weight 61.364, kg, Priority: STAT, Start date: 10/14/17 0:50:00 [employer], Stop date: 10/14/17 0:50:00 [employer] Morphine 2016-1 No 4 mg, [facility] 2-12 Route: l 05:47: IVP, ONCE, [place] 00 Dosing Weight 61.364, kg, Priority: STAT, Start date: 10/13/17 23:47:00 [employer], Stop date: 10/13/17 23:47:00 [employer] Morphine 2017-1 No 4 mg, [facility] 2-12 Route: l 05:47: IVP, ONCE, [place] 00 Dosing Weight 61.364, kg, Priority: STAT, Start date: 10/13/17 23:47:00 [employer], Stop date: 10/13/17 23:47:00 [employer] Morphine 2017-1 No 4 mg, [facility] 2-12 Route: l 05:47: IVP, ONCE, [place] 00 Dosing Weight 61.364, kg, Priority: STAT, Start date: 10/13/17 23:47:00 [employer], Stop date: 10/13/17 23:47:00 [employer] Morphine 2017-1 No 4 mg, [facility] 2-12 Route: l 05:47: IVP, ONCE, [place] 00 Dosing Weight 61.364, kg, Priority: STAT, Start date: 10/13/17 23:47:00 [employer], Stop date: 10/13/17 23:47:00 [employer] Morphine 2017-1 No 4 mg, [facility] 2-12 Route: l 05:47: IVP, ONCE, [place] 00 Dosing Weight 61.364, kg, Priority: STAT, Start date: 10/13/17 23:47:00 [employer], Stop date: 10/13/17 23:47:00 [employer] Morphine 2017-1 No 4 mg, [facility] 2-12 Route: l 05:47: IVP, ONCE, [place] 00 Dosing Weight 61.364, kg, Priority: STAT, Start date: 10/13/17 23:47:00 [employer], Stop date: 10/13/17 23:47:00 [employer] Morphine 2017-1 No 4 mg, [facility] 2-12 Route: l 05:47: IVP, ONCE, [place] 00 Dosing Weight 61.364, kg, Priority: STAT, Start date: 10/13/17 23:47:00 [employer], Stop date: 10/13/17 23:47:00 [employer] Morphine 2017-1 No 4 mg, [facility] 2-12 Route: l 05:47: IVP, ONCE, [place] 00 Dosing Weight 61.364, kg, Priority: STAT, Start date: 10/13/17 23:47:00 [employer], Stop date: 10/13/17 23:47:00 [employer] Morphine 2017-1 No 4 mg, [facility] 2-12 Route: l 05:47: IVP, ONCE, [place] 00 Dosing Weight 61.364, kg, Priority: STAT, Start date: 10/13/17 23:47:00 [employer], Stop date: 10/13/17 23:47:00 [employer] Morphine 2017-1 No 4 mg, [facility] 2-12 Route: l 05:47: IVP, ONCE, [place] 00 Dosing Weight 61.364, kg, Priority: STAT, Start date: 10/13/17 23:47:00 [employer], Stop date: 10/13/17 23:47:00 [employer] Morphine 2017-1 No 4 mg, [facility] 2-12 Route: l 05:47: IVP, ONCE, [place] 00 Dosing Weight 61.364, kg, Priority: STAT, Start date: 10/13/17 23:47:00 [employer], Stop date: 10/13/17 23:47:00 [employer] Morphine 2017-1 No 4 mg, [facility] 2-12 Route: l 05:47: IVP, ONCE, [place] 00 Dosing Weight 61.364, kg, Priority: STAT, Start date: 10/13/17 23:47:00 [employer], Stop date: 10/13/17 23:47:00 [employer] Morphine 2017-1 No 4 mg, [facility] 2-12 Route: l 05:47: IVP, ONCE, Dosing Weight 61.364, kg, Priority: STAT, Start date: 10/13/17 23:47:00 [employer], Stop date: 10/13/17 23:47:00 [employer] Morphine 2017-1 No 4 mg, [facility] 2-12 Route: l 05:47: IVP, ONCE, [place] Dosing Weight 61.364, kg, Priority: STAT, Start date: 10/13/17 23:47:00 [employer], Stop date: 10/13/17 23:47:00 [employer] Motrin 2017- No Notes: [facility] 2-12 (Same as: l 03:10: Advil) [place] 00 Give with food. Motrin 2017- No Notes: [facility] 2-12 (Same as: l 03:10: Advil) [place] 00 Give with food. Motrin 2017- No Notes: [facility] 2-12 (Same as: l 03:10: Advil) [place] 00 Give with food. Motrin 2016-11 No Notes: [facility] 2-12 (Same as: l 03:10: Advil) [place] 00 Give with food. Motrin 2016-11 No Notes: [facility] 2-12 (Same as: l 03:10: Advil) [place] 00 Give with food. Motrin 2016-11 No Notes: [facility] 2-12 (Same as: l 03:10: Advil) [place] 00 Give with food. Motrin 2016-11 No Notes: [facility] 2-12 (Same as: l 03:10: Advil) [place] 00 Give with food. Motrin 2016-11 No Notes: [facility] 2-12 (Same as: l 03:10: Advil) [place] 00 Give with food. Mot2016-11 No Notes: [facility] 2-12 (Same as: l 03:10: Advil) [place] 00 Give with food. Mot2016-11 No Notes: [facility] 2-12 (Same as: l 03:10: Advil) [place] 00 Give with food. Mot2016-11 No Notes: [facility] 2-12 (Same as: l 03:10: Advil) [place] 00 Give with food. Mot2016-11 No Notes: [facility] 2-12 (Same as: l 03:10: Advil) [place] 00 Give with food. Mot2016-11 No Notes: [facility] 2-12 (Same as: l 03:10: Advil) [place] 00 Give with food. Mot2016-11 No Notes: [facility] 2-12 (Same as: l 03:10: Advil) [place] 00 Give with food. propofol 2016-11 No 50 mg, [facility] 1-05 Route: IV, l 08:40: ONCE, Dosing Weight 61.364, kg, Start date: 09/07/17 2:40:00 [employer], Stop date: 09/07/17 2:40:00 [employer] propofol 2016-11 No 50 mg, [facility] 1-05 Route: IV, l 08:40: ONCE, [place] 00 Dosing Weight 61.364, kg, Start date: 09/07/17 2:40:00 [employer], Stop date: 09/07/17 2:40:00 [employer] propofol 2016-11 No 50 mg, [facility] 1-05 Route: IV, l 08:40: ONCE, [place] 00 Dosing Weight 61.364, kg, Start date: 09/07/17 2:40:00 [employer], Stop date: 09/07/17 2:40:00 [employer] propofol 2017- No 50 mg, [facility] 1-05 Route: IV, l 08:40: ONCE, [place] 00 Dosing Weight 61.364, kg, Start date: 09/07/17 2:40:00 [employer], Stop date: 09/07/17 2:40:00 [employer] propofol 2017- No 50 mg, [facility] 1-05 Route: IV, l 08:40: ONCE, [place] 00 Dosing Weight 61.364, kg, Start date: 09/07/17 2:40:00 [employer], Stop date: 09/07/17 2:40:00 [employer] propofol 2017- No 50 mg, [facility] 1-05 Route: IV, l 08:40: ONCE, [place] 00 Dosing Weight 61.364, kg, Start date: 09/07/17 2:40:00 [employer], Stop date: 09/07/17 2:40:00 [employer] propofol 2017- No 50 mg, [facility] 1-05 Route: IV, l 08:40: ONCE, [place] 00 Dosing Weight 61.364, kg, Start date: 09/07/17 2:40:00 [employer], Stop date: 09/07/17 2:40:00 [employer] propofol 2017- No 50 mg, [facility] 1-05 Route: IV, l 08:40: ONCE, Dosing Weight 61.364, kg, Start date: 09/07/17 2:40:00 [employer], Stop date: 09/07/17 2:40:00 [employer] propofol 2017- No 50 mg, [facility] 1-05 Route: IV, l 08:40: ONCE, [place] 00 Dosing Weight 61.364, kg, Start date: 09/07/17 2:40:00 [employer], Stop date: 09/07/17 2:40:00 [employer] propofol 2017- No 50 mg, [facility] 1-05 Route: IV, l 08:40: ONCE, [place] 00 Dosing Weight 61.364, kg, Start date: 09/07/17 2:40:00 [employer], Stop date: 09/07/17 2:40:00 [employer] propofol 2017- No 50 mg, [facility] 1-05 Route: IV, l 08:40: ONCE, [place] 00 Dosing Weight 61.364, kg, Start date: 09/07/17 2:40:00 [employer], Stop date: 09/07/17 2:40:00 [employer] propofol 2017- No 50 mg, [facility] 1-05 Route: IV, l 08:40: ONCE, [place] 00 Dosing Weight 61.364, kg, Start date: 09/07/17 2:40:00 [employer], Stop date: 09/07/17 2:40:00 [employer] propofol 2017- No 50 mg, [facility] 1-05 Route: IV, l 08:40: ONCE, [place] 00 Dosing Weight 61.364, kg, Start date: 09/07/17 2:40:00 [employer], Stop date: 09/07/17 2:40:00 [employer] propofol 2017- No 50 mg, [facility] 1-05 Route: IV, l 08:40: ONCE, [place] 00 Dosing Weight 61.364, kg, Start date: 09/07/17 2:40:00 [employer], Stop date: 09/07/17 2:40:00 [employer] morphine 2017- No 2 mg, [facility] Sulfate 1-05 Route: l 06:10: IVP, ONCE, [place] 00 Dosing Weight 61.364, kg, Priority: STAT, Start date: 09/07/17 1:10:00 CDT, Stop date: 09/07/17 1:10:00 CDT morphine 2017- No 2 mg, [facility] Sulfate 1-05 Route: l 06:10: IVP, ONCE, [place] 00 Dosing Weight 61.364, kg, Priority: STAT, Start date: 09/07/17 1:10:00 CDT, Stop date: 09/07/17 1:10:00 CDT morphine 2017- No 2 mg, [facility] Sulfate 1-05 Route: l 06:10: IVP, ONCE, [place]ush[place] Dosing Weight 61.364, kg, Priority: STAT, Start date: 09/07/17 1:10:00 CDT, Stop date: 09/07/17 1:10:00 CDT morphine 2017- No 2 mg, [facility] Sulfate 1-05 Route: l 06:10: IVP, ONCE, [place] 00 Dosing Weight 61.364, kg, Priority: STAT, Start date: 09/07/17 1:10:00 CDT, Stop date: 09/07/17 1:10:00 CDT morphine 2017-1 No 2 mg, [facility] Sulfate 1-05 Route: l 06:10: IVP, ONCE, [place] Dosing Weight 61.364, kg, Priority: STAT, Start date: 09/07/17 1:10:00 CDT, Stop date: 09/07/17 1:10:00 CDT morphine 2017-1 No 2 mg, [facility] Sulfate 1-05 Route: l 06:10: IVP, ONCE, [place] Dosing Weight 61.364, kg, Priority: STAT, Start date: 09/07/17 1:10:00 CDT, Stop date: 09/07/17 1:10:00 CDT morphine 2017-1 No 2 mg, [facility] Sulfate 1-05 Route: l 06:10: IVP, ONCE, [place]ush[place] Dosing Weight 61.364, kg, Priority: STAT, Start date: 09/07/17 1:10:00 CDT, Stop date: 09/07/17 1:10:00 CDT morphine 2017-1 No 2 mg, [facility] Sulfate 1-05 Route: l 06:10: IVP, ONCE, [place] Dosing Weight 61.364, kg, Priority: STAT, Start date: 09/07/17 1:10:00 CDT, Stop date: 09/07/17 1:10:00 CDT morphine 2017-1 No 2 mg, [facility] Sulfate 1-05 Route: l 06:10: IVP, ONCE, [place] Dosing Weight 61.364, kg, Priority: STAT, Start date: 09/07/17 1:10:00 CDT, Stop date: 09/07/17 1:10:00 CDT morphine 2017-1 No 2 mg, [facility] Sulfate 1-05 Route: l 06:10: IVP, ONCE, [place] 00 Dosing Weight 61.364, kg, Priority: STAT, Start date: 09/07/17 1:10:00 CDT, Stop date: 09/07/17 1:10:00 CDT morphine 2017-1 No 2 mg, [facility] Sulfate 1-05 Route: l 06:10: IVP, ONCE, [place] 00 Dosing Weight 61.364, kg, Priority: STAT, Start date: 09/07/17 1:10:00 CDT, Stop date: 09/07/17 1:10:00 CDT morphine 2017- No 2 mg, [facility] Sulfate 1-05 Route: l 06:10: IVP, ONCE, [place] 00 Dosing Weight 61.364, kg, Priority: STAT, Start date: 09/07/17 1:10:00 CDT, Stop date: 09/07/17 1:10:00 CDT morphine 2017- No 2 mg, [facility] Sulfate 1-05 Route: l 06:10: IVP, ONCE, [place] 00 Dosing Weight 61.364, kg, Priority: STAT, Start date: 09/07/17 1:10:00 CDT, Stop date: 09/07/17 1:10:00 CDT morphine 2017- No 2 mg, [facility] Sulfate 1-05 Route: l 06:10: IVP, ONCE, [place] Dosing Weight 61.364, kg, Priority: STAT, Start date: 09/07/17 1:10:00 CDT, Stop date: 09/07/17 1:10:00 CDT Zofran 2017- No 4 mg, [facility] [...] [facility] 1-05 Route: l 02:50: IVP, Drug [place] 00 form: INJ, ONCE, Dosing Weight 61.364, [...] [facility] 1-05 Route: l 02:50: IVP, Drug [place] 00 form: INJ, ONCE, Dosing Weight 61.364, kg, Priority: STAT, Start date: 09/06/17 21:50:00 CDT, Stop date: 09/06/17 21:50:00 CDT Zofran 2016- No 4 mg, [facility] 1-05 Route: l 02:50: IVP, Drug [place] 00 form: INJ, ONCE, Dosing Weight 61.364, kg, Priority: STAT, Start date: 09/06/17 21:50:00 CDT, Stop date: 09/06/17 21:50:00 CDT Zofran 2016- No 4 mg, [facility] 1-05 Route: l 02:50: IVP, Drug [place] 00 form: INJ, ONCE, Dosing Weight 61.364, kg, Priority: STAT, Start date: 09/06/17 21:50:00 CDT, Stop date: 09/06/17 21:50:00 CDT Zofran 2016- No 4 mg, [facility] 1-05 Route: l 02:50: IVP, Drug [place] 00 form: INJ, ONCE, Dosing Weight 61.364, [...] [facility] 1-05 Route: l 02:50: IVP, Drug [place] 00 form: INJ, ONCE, Dosing Weight 61.364, [...] Sulfate 1-05 Route: l 02:49: IVP, ONCE, [place] 00 Dosing Weight 61.364, kg, Priority: STAT, Start date: 09/06/17 21:49:00 CDT, Stop date: 09/06/17 21:49:00 CDT morphine 2017-1 No 4 mg, [facility] Sulfate 1-05 Route: l 02:49: IVP, ONCE, [place] 00 Dosing Weight 61.364, kg, Priority: STAT, Start date: 09/06/17 21:49:00 CDT, Stop date: 09/06/17 21:49:00 CDT morphine 2017-1 No 4 mg, [facility] Sulfate 1-05 Route: l 02:49: IVP, ONCE, [place] Dosing Weight 61.364, kg, Priority: STAT, Start date: 09/06/17 21:49:00 CDT, Stop date: 09/06/17 21:49:00 CDT morphine 2017-1 No 4 mg, [facility] Sulfate 1-05 Route: l 02:49: IVP, ONCE, [place]ush[place] Dosing Weight 61.364, kg, Priority: STAT, Start date: 09/06/17 21:49:00 CDT, Stop date: 09/06/17 21:49:00 CDT morphine 2017-1 No 4 mg, [facility] Sulfate 1-05 Route: l 02:49: IVP, ONCE, [place]ush[place] Dosing Weight 61.364, kg, Priority: STAT, Start date: 09/06/17 21:49:00 CDT, Stop date: 09/06/17 21:49:00 CDT morphine 2017-1 No 4 mg, [facility] Sulfate 1-05 Route: l 02:49: IVP, ONCE, Sush[place] Dosing Weight 61.364, kg, Priority: STAT, Start date: 09/06/17 21:49:00 CDT, Stop date: 09/06/17 21:49:00 CDT morphine 2017-1 No 4 mg, [facility] Sulfate 1-05 Route: l 02:49: IVP, ONCE, [place] 00 Dosing Weight 61.364, kg, Priority: STAT, Start date: 09/06/17 21:49:00 CDT, Stop date: 09/06/17 21:49:00 CDT morphine 2017-1 No 4 mg, [facility] Sulfate 1-05 Route: l 02:49: IVP, ONCE, [place] Dosing Weight 61.364, kg, Priority: STAT, Start date: 09/06/17 21:49:00 CDT, Stop date: 09/06/17 21:49:00 CDT morphine 2017-1 No 4 mg, [facility] Sulfate 1-05 Route: l 02:49: IVP, ONCE, [place] Dosing Weight 61.364, kg, Priority: STAT, Start date: 09/06/17 21:49:00 CDT, Stop date: 09/06/17 21:49:00 CDT morphine 2017-1 No 4 mg, [facility] Sulfate 1-05 Route: l 02:49: IVP, ONCE, [place] Dosing Weight 61.364, kg, Priority: STAT, Start date: 09/06/17 21:49:00 CDT, Stop date: 09/06/17 21:49:00 CDT morphine 2017-1 No 4 mg, [facility] Sulfate 1-05 Route: l 02:49: IVP, ONCE, [place] 00 Dosing Weight 61.364, kg, Priority: STAT, Start date: 09/06/17 21:49:00 CDT, Stop date: 09/06/17 21:49:00 CDT morphine 2017- No 4 mg, [facility] Sulfate 1-05 Route: l 02:49: IVP, ONCE, [place] 00 Dosing Weight 61.364, kg, Priority: STAT, [...] CDT, Stop date: 09/06/17 20:02:00 CDT morphine 2016-1 No 4 mg, [facility] Sulfate 1-05 Route: l 01:02: IVP, ONCE, Dosing Weight 61.364, kg, Priority: [...] Sulfate 1-05 Route: l 01:02: IVP, ONCE, [place] 00 Dosing Weight 61.364, kg, Priority: STAT, [...] ia 1-05 Route: l 01:02: IVP, Drug [place] 00 form: INJ, ONCE, Dosing Weight 61.364, kg, Priority: STAT, Start date: 09/06/17 20:02:00 CDT, Stop date: 09/06/17 20:02:00 CDT morphine 2017-1 No 4 mg, [facility] Sulfate 1-05 Route: l 01:02: IVP, ONCE, [place] 00 Dosing Weight 61.364, kg, Priority: STAT, Start date: 09/06/17 20:02:00 CDT, Stop date: 09/06/17 20:02:00 CDT ondansetron 2017- No 4 mg, [facility] ia 1-05 Route: l 01:02: IVP, Drug [place] 00 form: INJ, ONCE, Dosing Weight 61.364, kg, Priority: STAT, Start date: 09/06/17 20:02:00 CDT, Stop date: 09/06/17 20:02:00 CDT morphine 2017-1 No 4 mg, [facility] Sulfate 1-05 Route: l 01:02: IVP, ONCE, [place] 00 Dosing Weight 61.364, kg, Priority: STAT, Start date: 09/06/17 20:02:00 CDT, Stop date: 09/06/17 20:02:00 CDT ondansetron 2017-1 No 4 mg, [facility] ia 1-05 Route: l 01:02: IVP, Drug [place] 00 form: INJ, ONCE, Dosing Weight 61.364, kg, Priority: STAT, Start date: 09/06/17 20:02:00 CDT, Stop date: 09/06/17 20:02:00 CDT morphine 2017-1 No 4 mg, [facility] Sulfate 1-05 Route: l 01:02: IVP, ONCE, [place] 00 Dosing Weight 61.364, kg, Priority: STAT, [...] ia 1-05 Route: l 01:02: IVP, Drug [place] 00 form: INJ, ONCE, Dosing Weight 61.364, kg, Priority: STAT, Start date: 09/06/17 20:02:00 CDT, Stop date: 09/06/17 20:02:00 CDT morphine 2017-1 No 4 mg, [facility] Sulfate 1-05 Route: l 01:02: IVP, ONCE, [place] 00 Dosing Weight 61.364, kg, Priority: STAT, [...] CDT, Stop date: 09/06/17 20:02:00 CDT ondansetron 2017- No 4 mg, [facility] 1-05 Route: l 01:02: IVP, Drug [place] 00 form: INJ, ONCE, Dosing Weight 61.364, kg, Priority: STAT, Start date: 09/06/17 20:02:00 CDT, Stop date: 09/06/17 20:02:00 CDT morphine 2017- No 4 mg, [facility] Sulfate 1-05 Route: l 01:02: IVP, ONCE, [place] 00 Dosing Weight 61.364, kg, Priority: STAT, Start date: 09/06/17 20:02:00 CDT, Stop date: 09/06/17 20:02:00 CDT ondansetron 2017- No 4 mg, [facility] ia 1-05 Route: l 01:02: IVP, Drug [place] form: INJ, ONCE, Dosing Weight 61.364, kg, Priority: STAT, Start date: 09/06/17 20:02:00 CDT, Stop date: 09/06/17 20:02:00 CDT morphine 2017- No 4 mg, [facility] Sulfate 1-05 Route: l 01:02: IVP, ONCE, [place] 00 Dosing Weight 61.364, kg, Priority: STAT, Start date: 09/06/17 20:02:00 CDT, Stop date: 09/06/17 20:02:00 CDT ondansetron 2017- No 4 mg, [facility] ia 1-05 Route: l 01:02: IVP, Drug [place] 00 form: INJ, ONCE, Dosing Weight 61.364, kg, Priority: STAT, Start date: 09/06/17 20:02:00 CDT, Stop date: 09/06/17 20:02:00 CDT morphine 2017- No 4 mg, [facility] Sulfate 1-05 Route: l 01:02: IVP, ONCE, [place] 00 Dosing Weight 61.364, kg, Priority: STAT, Start date: 09/06/17 20:02:00 CDT, Stop date: 09/06/17 20:02:00 CDT remove 2017-0 No Notes: . [facility] patch 3-30 l 21:00: Sushil remove No Notes: . [facility] patch 3-30 l 21:00: Sushil remove No Notes: . [facility] patch 3-30 l 21:00: [place] 00 remove No Notes: . [facility] patch 3-30 l 21:00: [place] remove No Notes: . [facility] patch 3-30 l 21:00: Sushil remove No Notes: . [facility] patch 3-30 l 21:00: Sushil remove No Notes: . [facility] patch 3-30 l 21:00: [place] remove No Notes: . [facility] patch 3-30 l 21:00: Sushil remove No Notes: . [facility] patch 3-30 l 21:00: Sushil remove No Notes: . Memoria patch 3-30 l 21:00: Sushil remove No Notes: . Memoria patch 3-30 l 21:00: [place] remove No Notes: . Memoria patch 3-30 l 21:00: [place] remove No Notes: . Memoria patch 3-30 l 21:00: Sushil remove No Notes: . Memoria patch 3-30 l 21:00: [place] Dilaudid No Notes: Memoria 3-30 Same as: l 11:10: Dilaudid Sushil Dilaudid 2016- No Notes: Memoria 3-30 Same as: l 11:10: Dilaudid Sushil Dilaudid 2016-0 No Notes: Memoria 3-30 Same as: l 11:10: Dilaudid [place] Dilaudid 2016-0 No Notes: Memoria 3-30 Same as: l 11:10: Dilaudid Sushil Dilaudid 2016-0 No Notes: Memoria 3-30 Same as: l 11:10: Dilaudid [place] Dilaudid 2016-0 No Notes: Memoria 3-30 Same as: l 11:10: Dilaudid Sushil Dilaudid 2016-0 No Notes: Memoria 3-30 Same as: l 11:10: Dilaudid [place] 00 Dilaudid 2017-0 No Notes: Memoria 3-30 Same as: l 11:10: Dilaudid [place] 00 Dilaudid 2017-0 No Notes: Memoria 3-30 Same as: l 11:10: Dilaudid Sushil 00 Dilaudid 2017-0 No Notes: Memoria 3-30 Same as: l 11:10: Dilaudid Sushil 00 Dilaudid 2017-0 No Notes: Memoria 3-30 Same as: l 11:10: Dilaudid [place] 00 Dilaudid 2017-0 No Notes: Memoria 3-30 Same as: l 11:10: Dilaudid [place] 00 Dilaudid 2017-0 No Notes: Memoria 3-30 Same as: l 11:10: Dilaudid [place] 00 Dilaudid 2017-0 No Notes: Memoria 3-30 Same as: l 11:10: Dilaudid [place] 00 Lisinopril 2016-0 No Notes: Memor ia 3-29 (Same as: l 14:00: Prinivil, Sushil 00 Zestril) Lisinopril 2016-0 No Notes: Memor ia 3-29 (Same as: l 14:00: Prinivil, [place] 00 Zestril) Lisinopril 2016-0 No Notes: Memor ia 3-29 (Same as: l 14:00: Prinivil, [place] 00 Zestril) Lisinopril 2016-0 No Notes: Memor ia 3-29 (Same as: l 14:00: Prinivil, [place] 00 Zestril) Lisinopril 2016-0 No Notes: Memor ia 3-29 (Same as: l 14:00: Prinivil, Sushil 00 Zestril) Lisinopril 2016-0 No Notes: Memor ia 3-29 (Same as: l 14:00: Prinivil, [place] 00 Zestril) Lisinopril 2016-0 No Notes: Memor ia 3-29 (Same as: l 14:00: Prinivil, [place] 00 Zestril) Lisinopril 2016-0 No Notes: Memor ia 3-29 (Same as: l 14:00: Prinivil, Sushil 00 Zestril) Lisinopril 2016-0 No Notes: Memor ia 3-29 (Same as: l 14:00: Prinivil, Sushil 00 Zestril) Lisinopril 2016-0 No Notes: Memor ia 3-29 (Same as: l 14:00: Prinivil, Sushil 00 Zestril) Lisinopril 2016-0 No Notes: Memor ia 3-29 (Same as: l 14:00: Prinivil, Sushil 00 Zestril) Lisinopril 2016-0 No Notes: Memor ia 3-29 (Same as: l 14:00: Prinivil, [place] 00 Zestril) Lisinopril 2016-0 No Notes: Memor ia 3-29 (Same as: l 14:00: Prinivil, [place] 00 Zestril) Lisinopril 2017-0 No Notes: Memor ia 3-29 (Same as: l 14:00: Prinivil, [place] 00 Zestril) Melatonin 2017-0 No 15 mg, Memori a 3-29 Route: SL, l 02:00: Drug form: Sushil 00 TAB, Bedtime, Dosing Weight 61.364, kg, Start date: 01/28/17 21:00:00 CDT, Duration: 30 day, Stop date: 02/26/17 21:00:00 CDT Melatonin 2017-0 No 15 mg, Memori a 3-29 Route: SL, l 02:00: Drug form: [place] 00 TAB, Bedtime, Dosing Weight 61.364, kg, Start date: 01/28/17 21:00:00 CDT, Duration: 30 day, Stop date: 02/26/17 21:00:00 CDT Melatonin 2017-0 No 15 mg, Memori a 3-29 Route: SL, l 02:00: Drug form: Sushil 00 TAB, Bedtime, Dosing Weight 61.364, kg, Start date: 01/28/17 21:00:00 CDT, Duration: 30 day, Stop date: 02/26/17 21:00:00 CDT Melatonin 2017-0 No 15 mg, Memori a 3-29 Route: SL, l 02:00: Drug form: [place] 00 TAB, Bedtime, Dosing Weight 61.364, kg, Start date: 01/28/17 21:00:00 CDT, Duration: 30 day, Stop date: 02/26/17 21:00:00 CDT Melatonin 2017-0 No 15 mg, Memori a 3-29 Route: SL, l 02:00: Drug form: Sushil 00 TAB, Bedtime, Dosing Weight 61.364, kg, Start date: 01/28/17 21:00:00 CDT, Duration: 30 day, Stop date: 02/26/17 21:00:00 CDT Melatonin 2017-0 No 15 mg, Memori a 3-29 Route: SL, l 02:00: Drug form: [place] 00 TAB, Bedtime, Dosing Weight 61.364, kg, Start date: 01/28/17 21:00:00 CDT, Duration: 30 day, Stop date: 02/26/17 21:00:00 CDT Melatonin 2017-0 No 15 mg, Memori a 3-29 Route: SL, l 02:00: Drug form: Sushil 00 TAB, Bedtime, Dosing Weight 61.364, kg, Start date: 01/28/17 21:00:00 CDT, Duration: 30 day, Stop date: 02/26/17 21:00:00 CDT Melatonin 2017-0 No 15 mg, Memori a 3-29 Route: SL, l 02:00: Drug form: [place] 00 TAB, Bedtime, Dosing Weight 61.364, kg, Start date: 01/28/17 21:00:00 CDT, Duration: 30 day, Stop date: 02/26/17 21:00:00 CDT Melatonin 2017-0 No 15 mg, Memori a 3-29 Route: SL, l 02:00: Drug form: [place] 00 TAB, Bedtime, Dosing Weight 61.364, kg, Start date: 01/28/17 21:00:00 CDT, Duration: 30 day, Stop date: 02/26/17 21:00:00 CDT Melatonin 2017-0 No 15 mg, Memori a 3-29 Route: SL, l 02:00: Drug form: Sushil 00 TAB, Bedtime, Dosing Weight 61.364, kg, Start date: 01/28/17 21:00:00 CDT, Duration: 30 day, Stop date: 02/26/17 21:00:00 CDT Melatonin 2017-0 No 15 mg, Memori a 3-29 Route: SL, l 02:00: Drug form: Sushil 00 TAB, Bedtime, Dosing Weight 61.364, kg, Start date: 01/28/17 21:00:00 CDT, Duration: 30 day, Stop date: 02/26/17 21:00:00 CDT Melatonin No 15 mg, Memori a 3- Route: SL, l 02:00: Drug form: Sushil 00 TAB, Bedtime, Dosing Weight 61.364, kg, Start date: 01/28/17 21:00:00 CDT, Duration: 30 day, Stop date: 02/26/17 21:00:00 CDT Melatonin No 15 mg, Memori a 3- Route: SL, l 02:00: Drug form: Sushil 00 TAB, Bedtime, Dosing Weight 61.364, kg, Start date: 01/28/17 21:00:00 CDT, Duration: 30 day, Stop date: 02/26/17 21:00:00 CDT Melatonin No 15 mg, Memori a 3 Route: SL, l 02:00: Drug form: [place] 00 TAB, Bedtime, Dosing Weight 61.364, kg, Start date: 01/28/17 21:00:00 CDT, Duration: 30 day, Stop date: 02/26/17 21:00:00 CDT Docusate No Notes: Memoria Sodium 100 3-28 (Same as: l MG Oral 22:00: Colace) Sushil Capsule 00 (Do Not [Colace] Crush) Docusate No Notes: Memoria Sodium 100 3-28 (Same as: l MG Oral 22:00: Colace) [place] Capsule 00 (Do Not [Colace] Crush) Docusate No Notes: Memoria Sodium 100 3-28 (Same as: l MG Oral 22:00: Colace) Sushil Capsule 00 (Do Not [Colace] Crush) Docusate No Notes: Memoria Sodium 100 3-28 (Same as: l MG Oral 22:00: Colace) Sushil Capsule 00 (Do Not [Colace] Crush) Docusate No Notes: Memoria Sodium 100 3-28 (Same as: l MG Oral 22:00: Colace) [place] Capsule 00 (Do Not [Colace] Crush) Docusate No Notes: Memoria Sodium 100 3-28 (Same as: l MG Oral 22:00: Colace) [place] Capsule 00 (Do Not [Colace] Crush) Docusate No Notes: Memoria Sodium 100 3-28 (Same as: l MG Oral 22:00: Colace) [place] Capsule 00 (Do Not [Colace] Crush) Docusate No Notes: Memoria Sodium 100 3-28 (Same as: l MG Oral 22:00: Colace) Sushil Capsule 00 (Do Not [Colace] Crush) Docusate No Notes: Memoria Sodium 100 3-28 (Same as: l MG Oral 22:00: Colace) [place] Capsule 00 (Do Not [Colace] Crush) Docusate No Notes: Memoria Sodium 100 3-28 (Same as: l MG Oral 22:00: Colace) [place] Capsule 00 (Do Not [Colace] Crush) Docusate No Notes: Memoria Sodium 100 3-28 (Same as: l MG Oral 22:00: Colace) Sushil Capsule 00 (Do Not [Colace] Crush) Docusate No Notes: Memoria Sodium 100 3-28 (Same as: l MG Oral 22:00: Colace) [place] Capsule 00 (Do Not [Colace] Crush) Docusate No Notes: Memoria Sodium 100 3-28 (Same as: l MG Oral 22:00: Colace) Sushil Capsule 00 (Do Not [Colace] Crush) Docusate No Notes: Memoria Sodium 100 3-28 (Same as: l MG Oral 22:00: Colace) Sushil Capsule 00 (Do Not [Colace] Crush) Alprazolam No Notes: Memor ia 1 MG Oral 3-28 With food l Tablet 21:01: or milk Sushil [Xanax] 00 (Same as: Xanax) Alprazolam No Notes: Memor ia 1 MG Oral 3-28 With food l Tablet 21:01: or milk [place] [Xanax] 00 (Same as: Xanax) Alprazolam No Notes: Memor ia 1 MG Oral 3-28 With food l Tablet 21:01: or milk [place] [Xanax] 00 (Same as: Xanax) Alprazolam No Notes: Memor ia 1 MG Oral 3-28 With food l Tablet 21:01: or milk [place] [Xanax] 00 (Same as: Xanax) Alprazolam No Notes: Memor ia 1 MG Oral 3-28 With food l Tablet 21:01: or milk [place] [Xanax] 00 (Same as: Xanax) Alprazolam No Notes: Memor ia 1 MG Oral 3-28 With food l Tablet 21:01: or milk [place] [Xanax] 00 (Same as: Xanax) Alprazolam No Notes: Memor ia 1 MG Oral 3-28 With food l Tablet 21:01: or milk [place] [Xanax] 00 (Same as: Xanax) Alprazolam No Notes: Memor ia 1 MG Oral 3-28 With food l Tablet 21:01: or milk [place] [Xanax] 00 (Same as: Xanax) Alprazolam No Notes: Memor ia 1 MG Oral 3-28 With food l Tablet 21:01: or milk [place] [Xanax] 00 (Same as: Xanax) Alprazolam No [...] With food l Tablet 21:01: or milk [place] [Xanax] 00 (Same as: Xanax) Alprazolam No Notes: Memor ia 1 MG Oral 3-28 With food l Tablet 21:01: or milk Sushil [Xanax] 00 (Same as: Xanax) Alprazolam No Notes: Memor ia 1 MG Oral 3-28 With food l Tablet 21:01: or milk Sushil [Xanax] 00 (Same as: Xanax) Duragesic-5 No Notes: Josh seamus 0 3-28 (Same as: l 21:00: Duragesic) [place] 00 Check for product integrity. Apply to [...] [facility]: [facility] sodium 3-28 (Same As: [...] 3-28 (Same As: l chloride 21:00: Ancef, [place] 0.9% INJ 00 Kefzol) 100 mL MEDICATION WASTE Product Size: 1000 mg Product Wasted: ___ mg Duragesic-5 No Notes: Josh seamus 0 3-28 (Same as: l 21:00: Duragesic) [place] 00 Check for product integrity. Apply to intact skin "Remove old patch before applicatio n of new patch" Ancef No Notes: Memoria sodium 3-28 (Same As: l chloride 21:00: Ancef, [place] 0.9% INJ 00 Kefzol) 100 mL MEDICATION WASTE Product Size: 1000 mg Product Wasted: ___ mg Duragesic-5 No Notes: Josh seamus 0 3-28 (Same as: l 21:00: Duragesic) [place] 00 Check for product integrity. Apply to intact skin "Remove old patch before applicatio n of new patch" Ancef No Notes: Memoria sodium 3-28 (Same As: l chloride 21:00: Ancef, [place] 0.9% INJ 00 Kefzol) 100 mL MEDICATION WASTE Product Size: 1000 mg Product Wasted: ___ mg Duragesic-5 No Notes: Josh seamus 0 3-28 (Same as: l 21:00: Duragesic) [place] 00 Check for product integrity. Apply to intact skin "Remove old patch before applicatio n of new patch" [facility]: [facility] sodium 3-28 (Same As: l chloride 21:00: Ancef, [place] 0.9% INJ 00 Kefzol) 100 mL MEDICATION WASTE Product Size: 1000 mg Product Wasted: ___ mg Duragesic-5 No Notes: Josh se[place] 0 3-28 (Same as: l 21:00: Duragesic) Sushil 00 Check for product integrity. Apply to intact skin "Remove old patch before applicatio n of new patch" [facility]: [facility] sodium 3-28 (Same As: l chloride 21:00: Ancef, [place] 0.9% INJ 00 Kefzol) 100 mL MEDICATION WASTE Product Size: 1000 mg Product Wasted: ___ mg Duragesic-5 No Notes: Josh [place] 0 3-28 (Same as: l 21:00: Duragesic) Sushil 00 Check for product integrity. Apply to intact skin "Remove old patch before applicatio n of new patch" Ancef No Notes: Memoria sodium 3-28 (Same As: l chloride 21:00: Ancef, [place] 0.9% INJ 00 Kefzol) 100 mL MEDICATION WASTE Product Size: 1000 mg Product Wasted: ___ mg Duragesic-5 No Notes: Josh [place] 0 3-28 (Same as: l 21:00: Duragesic) [place] 00 Check for product integrity. Apply to intact skin "Remove old patch before applicatio n of new patch" [facility]: [facility] sodium 3-28 (Same As: l chloride 21:00: Ancef, [place] 0.9% INJ 00 Kefzol) 100 mL MEDICATION WASTE Product Size: 1000 mg Product Wasted: ___ mg Duragesic-5 No Notes: Josh seamus 0 3-28 (Same as: l 21:00: Duragesic) Sushil 00 Check for product integrity. Apply to intact skin "Remove old patch before applicatio n of new patch" [facility]: [facility] sodium 3-28 (Same As: l chloride 21:00: Ancef, [place] 0.9% INJ 00 Kefzol) 100 mL MEDICATION WASTE Product Size: 1000 mg Product Wasted: ___ mg Duragesic-5 No Notes: Josh seamus 0 3-28 (Same as: l 21:00: Duragesic) [place] 00 Check for product integrity. Apply to intact skin "Remove old patch before applicatio n of new patch" [facility] No Notes: Memoria sodium 3-28 (Same As: l chloride 21:00: Ancef, [place] 0.9% INJ 00 Kefzol) 100 mL MEDICATION WASTE Product Size: 1000 mg Product Wasted: ___ mg Duragesic-5 No Notes: Josh seamus 0 3-28 (Same as: l 21:00: Duragesic) Sushil 00 Check for product integrity. Apply to intact skin "Remove old patch before applicatio n of new patch" [facility]: [facility] sodium 3-28 (Same As: l chloride 21:00: Ancef, [place] 0.9% INJ 00 Kefzol) 100 mL MEDICATION WASTE Product Size: 1000 mg Product Wasted: ___ mg Duragesic-5 No Notes: Josh seamus 0 3-28 (Same as: l 21:00: Duragesic) [place] 00 Check for product integrity. Apply to [...] 00 conc = 0.5 mg/ml Hydromorph one [employer] Dose: ;Delay: ;Basal: Acetaminoph No Notes: Max Memoria en 3-28 acetaminop l 17:00: hen 4000 [place] 00 mg/day (4 gm/day). (Same as: Tylenol Extra Strength) Hydromorpho No Notes: Josh seamus ne 3-28 (Same as: l 17:00: Dilaudid) [place] 00 conc = 0.5 mg/ml Hydromorph one [employer] Dose: ;Delay: ;Basal: Acetaminoph No Notes: Max Memoria en 3-28 acetaminop l 17:00: hen 4000 [place] 00 mg/day (4 gm/day). (Same as: Tylenol Extra Strength) Hydromorpho No Notes: Josh seamus ne 3-28 (Same as: l 17:00: Dilaudid) Sushil 00 conc = 0.5 mg/ml Hydromorph one [employer] Dose: ;Delay: ;Basal: Acetaminoph No Notes: Max Memoria en 3-28 acetaminop l 17:00: hen 4000 Sushil 00 mg/day (4 gm/day). (Same as: Tylenol Extra Strength) Hydromorpho No Notes: Josh seamus ne 3-28 (Same as: l 17:00: Dilaudid) Sushil 00 conc = 0.5 mg/ml Hydromorph one [employer] Dose: ;Delay: ;Basal: Acetaminoph No Notes: Max Memoria en 3-28 acetaminop l 17:00: hen 4000 [place] 00 mg/day (4 gm/day). (Same as: Tylenol Extra Strength) Hydromorpho No Notes: Josh seamus ne 3-28 (Same as: l 17:00: Dilaudid) Sushil 00 conc = 0.5 mg/ml Hydromorph one [employer] Dose: ;Delay: ;Basal: Acetaminoph No Notes: Max Memoria en 3-28 acetaminop l 17:00: hen 4000 Sushil 00 mg/day (4 gm/day). (Same as: Tylenol Extra Strength) Hydromorpho No Notes: Josh seamus ne 3-28 (Same as: l 17:00: Dilaudid) [place] 00 conc = 0.5 mg/ml Hydromorph one [employer] Dose: ;Delay: ;Basal: Acetaminoph No Notes: Max Memoria en 3-28 acetaminop l 17:00: hen 4000 [place] 00 mg/day (4 gm/day). (Same as: Tylenol Extra Strength) Hydromorpho No Notes: Josh seamus ne 3-28 (Same as: l 17:00: Dilaudid) Sushil 00 conc = 0.5 mg/ml Hydromorph one [employer] Dose: ;Delay: ;Basal: Acetaminoph No Notes: Max Memoria en 3-28 acetaminop l 17:00: hen 4000 [place] 00 mg/day (4 gm/day). (Same as: Tylenol Extra Strength) Hydromorpho No Notes: Josh seamus ne 3-28 (Same as: l 17:00: Dilaudid) [place] 00 conc = 0.5 mg/ml Hydromorph one [employer] Dose: ;Delay: ;Basal: Acetaminoph No Notes: Max Memoria en 3-28 acetaminop l 17:00: hen 4000 Sushil 00 mg/day (4 gm/day). (Same as: Tylenol Extra Strength) Hydromorpho No Notes: Josh seamus ne 3-28 (Same as: l 17:00: Dilaudid) [place] 00 conc = 0.5 mg/ml Hydromorph one [employer] Dose: ;Delay: ;Basal: Hydromorpho No Notes: Josh seamus ne 3-28 (Same as: l 17:00: Dilaudid) Sushil 00 conc = 0.5 mg/ml Hydromorph one [employer] Dose: ;Delay: ;Basal: Acetaminoph No Notes: Max Memoria en 3-28 acetaminop l 17:00: hen 4000 Sushil 00 mg/day (4 gm/day). (Same as: Tylenol Extra Strength) Acetaminoph No Notes: Max Memoria en 3-28 acetaminop l 17:00: hen 4000 Sushil 00 mg/day (4 gm/day). (Same as: Tylenol Extra Strength) Hydromorpho No Notes: Josh seamus ne 3-28 (Same as: l 17:00: Dilaudid) [place] 00 conc = 0.5 mg/ml Hydromorph one [employer] Dose: ;Delay: ;Basal: Acetaminoph No Notes: Max Memoria en 3-28 acetaminop l 17:00: hen 4000 [place] 00 mg/day (4 gm/day). (Same as: Tylenol Extra Strength) Hydromorpho No Notes: Josh seamus ne 3-28 (Same as: l 17:00: Dilaudid) Sushil 00 conc = 0.5 mg/ml Hydromorph one [employer] Dose: ;Delay: ;Basal: Acetaminoph No Notes: Max Memoria en 3-28 acetaminop l 17:00: hen 4000 [place] 00 mg/day (4 gm/day). (Same as: Tylenol Extra Strength) Hydromorpho No Notes: Josh seamus ne 3-28 (Same as: l 17:00: Dilaudid) Sushil 00 conc = 0.5 mg/ml Hydromorph one [employer] Dose: ;Delay: ;Basal: Acetaminoph No Notes: Max Memoria en 3-28 acetaminop l 17:00: hen 4000 Sushil 00 mg/day (4 gm/day). (Same as: Tylenol Extra Strength) Hydromorpho No Notes: Josh seamus ne 3-28 (Same as: l 17:00: Dilaudid) [place] 00 conc = 0.5 mg/ml Hydromorph one [employer] Dose: ;Delay: ;Basal: Acetaminoph No Notes: Max [...] seamus 01-28 (Same as: l 16:47: Zofran) [place] 00 MEDICATION WASTE Product Size: 4 mg Product Wasted: ___ mg Hydromorpho No 0.5 mg, Mem oria ne 01-28 Route: l 16:47: IVP, [place] 00 Q5Min, Dosing Weight 61.364, kg, PRN Pain Score 7-10, Start date: 01/28/17 11:47:00 CDT, Duration: 4 doses or times, Stop date: Limited # of times Naloxone No Notes: Memoria 3- (Same as: l 16:47: Narcan) Flumazenil No Notes: Memor ia 3- (Same as: l 16:47: Romazicon) Ondansetron No Notes: Josh seamus 3 (Same as: l 16:47: Zofran) Sushil 00 MEDICATION WASTE Product Size: 4 mg Product Wasted: ___ mg Hydromorpho No 0.5 mg, Mem oria ne 01-28 Route: l 16:47: IVP, Sushil 00 Q5Min, Dosing Weight 61.364, kg, PRN Pain Score 7-10, Start date: 01/28/17 11:47:00 CDT, Duration: 4 doses or times, Stop date: Limited # of times Naloxone No Notes: Memoria 3-28 (Same as: l 16:47: Narcan) Flumazenil No Notes: Memor ia 3- (Same as: l 16:47: Romazicon) Ondansetron No Notes: Josh seamus 3- (Same as: l 16:47: Zofran) [place] 00 MEDICATION WASTE Product Size: 4 mg [...] 16:47: Romazicon) Ondansetron No Notes: Josh seamus 3 (Same as: l 16:47: Zofran) Sushil 00 MEDICATION WASTE Product Size: 4 mg Product Wasted: ___ mg Hydromorpho No 0.5 mg, Mem oria ne 01-28 Route: l 16:47: IVP, [place] 00 Q5Min, Dosing Weight 61.364, kg, PRN Pain Score 7-10, Start date: 01/28/17 11:47:00 CDT, Duration: 4 doses or times, Stop date: Limited # of times Naloxone 2016-0 No Notes: Memoria 3-28 (Same as: l 16:47: Narcan) Flumazenil No Notes: Memor ia 3-28 (Same as: l 16:47: Romazicon) Ondansetron No Notes: Josh seamus 3-28 (Same as: l 16:47: Zofran) Sushil 00 MEDICATION WASTE Product Size: 4 mg Product Wasted: ___ mg Hydromorpho No 0.5 mg, Mem oria ne 3 Route: l 16:47: IVP, [place] 00 Q5Min, Dosing Weight 61.364, kg, PRN [...] # of times Naloxone No Notes: Memoria 3 (Same as: l 16:47: Narcan) Flumazenil No Notes: Memor ia 3- (Same as: l 16:47: Romazicon) Ondansetron No Notes: Josh seamus 3- (Same as: l 16:47: Zofran) Sushil 00 MEDICATION WASTE Product Size: 4 mg Product Wasted: ___ mg Hydromorpho No 0.5 mg, Mem oria ne 3- Route: l 16:47: IVP, [place] 00 Q5Min, Dosing Weight 61.364, kg, PRN Pain Score 7-10, Start date: 01/28/17 11:47:00 CDT, Duration: 4 doses or times, Stop date: Limited # of times Naloxone No Notes: Memoria 3-28 (Same as: l 16:47: Narcan) Flumazenil No Notes: Memor ia 3-28 (Same as: l 16:47: Romazicon) Ondansetron No Notes: Josh seamus 3-28 (Same as: l 16:47: Zofran) Sushil 00 MEDICATION WASTE Product Size: 4 mg Product Wasted: ___ mg Hydromorpho No 0.5 mg, Mem oria ne 3- Route: l 16:47: IVP, [place] 00 Q5Min, Dosing Weight 61.364, kg, PRN Pain Score 7-10, Start date: 01/28/17 11:47:00 CDT, Duration: 4 doses or times, Stop date: Limited # of times Naloxone 2016- No Notes: Memoria 3-28 (Same as: l 16:47: Narcan) Flumazenil No Notes: Memor ia 3-28 (Same as: l 16:47: Romazicon) Ondansetron No Notes: Josh seamus 3-28 (Same as: l 16:47: Zofran) [place] 00 MEDICATION WASTE Product Size: 4 mg Product Wasted: ___ mg Hydromorpho No 0.5 mg, Mem oria ne - Route: l 16:47: IVP, [place] 00 Q5Min, Dosing Weight 61.364, kg, PRN Pain Score 7-10, Start date: 01/28/17 11:47:00 CDT, Duration: 4 doses or times, Stop date: Limited # of times Naloxone 2016- No Notes: Memoria 3-28 (Same as: l 16:47: Narcan) Flumazenil No Notes: Memor ia 3-28 (Same as: l 16:47: Romazicon) Ondansetron No Notes: Josh seamus 3-28 (Same as: l 16:47: Zofran) [place] 00 MEDICATION WASTE Product Size: 4 mg Product Wasted: ___ mg Hydromorpho No 0.5 mg, Mem oria ne 3- Route: l 16:47: IVP, [place] 00 Q5Min, Dosing Weight 61.364, kg, PRN Pain Score 7-10, Start date: 01/28/17 11:47:00 CDT, Duration: 4 doses or times, Stop date: Limited # of times Naloxone 2016-0 No Notes: Memoria 3-28 (Same as: l 16:47: Narcan) Flumazenil No Notes: Memor ia 3-28 (Same as: l 16:47: Romazicon) Ondansetron No Notes: Josh seamus 3-28 (Same as: l 16:47: Zofran) Sushil 00 MEDICATION WASTE Product Size: 4 mg Product Wasted: ___ mg Hydromorpho 2016- No 0.5 mg, Mem oria ne 01-28 Route: l 16:47: IVP, [place] 00 Q5Min, Dosing Weight 61.364, kg, PRN [...] oria ne 01-28 Route: l 16:47: IVP, [place] 00 Q5Min, Dosing Weight 61.364, kg, PRN Pain Score 7-10, Start date: 01/28/17 11:47:00 CDT, Duration: 4 doses or times, Stop date: Limited # of times Naloxone 2016-0 No Notes: Memoria 3-28 (Same as: l 16:47: Narcan) Flumazenil No Notes: Memor ia 3-28 (Same as: l 16:47: Romazicon) [place] 00 Ondansetron No Notes: Josh seamus 01-28 (Same as: l 16:47: Zofran) MEDICATION WASTE Product Size: 4 mg Product Wasted: ___ mg Hydromorpho No 0.5 mg, Mem oria ne 01-28 Route: l 16:47: IVP, [place] 00 Q5Min, Dosing Weight 61.364, kg, PRN [...] CDT ondansetron No Route: IV, Memoria (ANES) 01-28 Drug form: l 16:45: INJ, ONCE, Stop date: 01/28/17 11:45:00 CDT ondansetron 0 No Route: IV, Memoria (ANES) 01-28 Drug form: l 16:45: INJ, ONCE, Stop date: 01/28/17 11:45:00 CDT ondansetron 0 No Route: IV, Memoria (ANES) 01-28 Drug form: l 16:45: INJ, ONCE, Stop date: 01/28/17 11:45:00 CDT ondansetron No Route: IV, Memoria (ANES) 01-28 Drug form: l 16:45: INJ, ONCE, Stop date: 01/28/17 11:45:00 CDT ondansetron 0 No Route: IV, Memoria (ANES) 01-28 Drug form: l 16:45: INJ, ONCE, [place] 00 Stop date: 01/28/17 11:45:00 CDT ondansetron 0 [...] 01-28 Drug form: l 16:45: INJ, ONCE, [place] 00 Stop date: 01/28/17 11:45:00 CDT ondansetron 0 No Route: IV, Memoria (ANES) 01-28 Drug form: l 16:45: INJ, ONCE, [place] 00 Stop date: 01/28/17 11:45:00 CDT Oxycodone 0 No Notes: Memori a Hydrochlori 01-28 (Same as: scotty de 5 MG 16:44: Roxicodone Herm milind Oral Tablet 00 ) Oxycodone [id number] No Notes: Memori a Hydrochlori 3-28 (Same as: l de 5 MG 16:44: Roxicodone Herm milind Oral Tablet 00 ) Oxycodone 0 No Notes: Memori a Hydrochlori 3-28 (Same as: l de 5 MG 16:44: Roxicodone Herm milind Oral Tablet 00 ) Oxycodone No Notes: Memori a Hydrochlori 3-28 (Same as: l de 5 MG 16:44: Roxicodone Herm milind Oral Tablet 00 ) Oxycodone No Notes: Memori a Hydrochlori 3-28 (Same as: l de 5 MG 16:44: Roxicodone Herm milind Oral Tablet ) Oxycodone No Notes: Memori a Hydrochlori 3-28 (Same as: l de 5 MG 16:44: Roxicodone Herm milind Oral Tablet 00 ) Oxycodone No Notes: Memori a Hydrochlori 3-28 (Same as: l de 5 MG 16:44: Roxicodone Herm milind Oral Tablet ) Oxycodone No Notes: Memori a Hydrochlori 3-28 (Same as: l de 5 MG 16:44: Roxicodone Herm milind Oral Tablet ) Oxycodone 0 No Notes: Memori a Hydrochlori 3-28 (Same as: l de 5 MG 16:44: Roxicodone Herm milind Oral Tablet 00 ) Oxycodone No Notes: Memori a Hydrochlori 3-28 (Same as: l de 5 MG 16:44: Roxicodone Herm milind Oral Tablet ) Oxycodone 0 No Notes: Memori a Hydrochlori 3-28 (Same as: l de 5 MG 16:44: Roxicodone Herm milind Oral Tablet ) Oxycodone 0 No Notes: Memori a Hydrochlori 3-28 (Same as: l de 5 MG 16:44: Roxicodone Herm milind Oral Tablet 00 ) Oxycodone 0 No Notes: Memori a Hydrochlori 3-28 (Same as: l de 5 MG 16:44: Roxicodone Herm milind Oral Tablet 00 ) Oxycodone 0 No Notes: Memori a Hydrochlori 3-28 (Same as: l de 5 MG 16:44: Roxicodone Herm milind Oral Tablet 00 ) Naloxone No Notes: Memoria 3-28 (Same as: l 16:37: Narcan) [place] 00 Methocarbam No Notes: Josh seamus ol 3-28 (Same l 16:37: as:Robaxin [place] ) Naloxone No Notes: Memoria 3-28 (Same as: l 16:37: Narcan) [place] 00 Methocarbam No Notes: Josh seamus ol 3-28 (Same l 16:37: as:Robaxin [place] ) Naloxone No Notes: Memoria 3-28 (Same as: l 16:37: Narcan) [place] 00 Methocarbam No Notes: Josh seamus ol 3-28 (Same l 16:37: as:Robaxin [place] ) Naloxone No Notes: Memoria 3-28 (Same as: l 16:37: Narcan) [place] 00 Methocarbam No Notes: Josh seamus ol 3-28 (Same l 16:37: as:Robaxin [place] ) Naloxone No Notes: Memoria 3-28 (Same as: l 16:37: Narcan) Sushil 00 Methocarbam No Notes: Josh seamus ol 3-28 (Same l 16:37: as:Robaxin Sushil ) Naloxone No Notes: Memoria 3-28 (Same as: l 16:37: Narcan) Sushil 00 Methocarbam No Notes: Josh seamus ol 3-28 (Same l 16:37: as:Robaxin Sushil ) Naloxone No Notes: Memoria 3-28 (Same as: l 16:37: Narcan) [place] 00 Methocarbam No Notes: Josh seamus ol 3-28 (Same l 16:37: as:Robaxin Sushil ) Naloxone No Notes: Memoria 3-28 (Same as: l 16:37: Narcan) [place] Methocarbam No Notes: Josh seamus ol 3-28 (Same l 16:37: as:Robaxin Sushil ) Naloxone 2017-0 No Notes: Memoria 3-28 (Same as: l 16:37: Narcan) Sushil 00 Methocarbam No Notes: Josh seamus ol 3-28 (Same l 16:37: as:Robaxin [place] ) Naloxone 2017-0 No Notes: Memoria 3-28 (Same as: l 16:37: Narcan) [place] 00 Methocarbam No Notes: Josh seamus ol 3-28 (Same l 16:37: as:Robaxin [place] ) Naloxone No Notes: Memoria 3-28 (Same as: l 16:37: Narcan) [place] 00 Methocarbam No Notes: Josh seamus ol 3-28 (Same l 16:37: as:Robaxin [place] ) Naloxone No Notes: Memoria 3-28 (Same as: l 16:37: Narcan) [place] 00 Methocarbam No Notes: Josh seamus ol 3-28 (Same l 16:37: as:Robaxin [place] ) Naloxone No Notes: Memoria 3-28 (Same as: l 16:37: Narcan) [place] 00 Methocarbam 0 No Notes: Josh seamus ol 3-28 (Same l 16:37: as:Robaxin Sushil ) Naloxone 0 No Notes: Memoria 3-28 (Same as: l 16:37: Narcan) Sushil 00 Methocarbam 0 No Notes: Josh seamus ol 3-28 (Same l 16:37: as:Robaxin Sushil ) Ondansetron 2016-0 No Notes: Josh seamus 3-28 (Same as: l 16:31: Zofran) [place] 00 Ondansetron 2016-0 No Notes: Josh seamus 3-28 (Same as: l 16:31: Zofran) Sushil 00 Ondansetron 2016-0 No Notes: Josh seamus 3-28 (Same as: l 16:31: Zofran) Sushil 00 Ondansetron 2016-0 No Notes: Josh seamus 3-28 (Same as: l 16:31: Zofran) Sushil 00 Ondansetron 2016-0 No Notes: Josh seamus 3-28 (Same as: l 16:31: Zofran) [place] 00 Ondansetron 2016-0 No Notes: Josh seamus 3-28 (Same as: l 16:31: Zofran) Sushil 00 Ondansetron 2016-0 No Notes: Josh seamus 3-28 (Same as: l 16:31: Zofran) Sushil 00 Ondansetron 2016-0 No Notes: Josh seamus 3-28 (Same as: l 16:31: Zofran) Ondansetron 2016- No Notes: Josh seamus 3-28 (Same as: l 16:31: Zofran) Ondansetron 0 No Notes: Josh seamus 3-28 (Same as: l 16:31: Zofran) Ondansetron 2016- No Notes: Josh seamus 3-28 (Same as: l 16:31: Zofran) Ondansetron 2016-0 No Notes: Josh seamus 3-28 (Same as: l 16:31: Zofran) Ondansetron 2016-0 No Notes: Josh seamus 3-28 (Same as: l 16:31: Zofran) Ondansetron 2016- No Notes: Josh seamus 3-28 (Same as: l 16:31: Zofran) phenylephri 2016-0 No Route: IV, Memoria ne (ANES) 3 Drug form: l 16:06: INJ, ONCE, Stop date: 01/28/17 11:06:00 CDT phenylephri 2017-0 No Route: IV, Memoria ne (ANES) - Drug form: l 16:06: INJ, ONCE, Stop date: 01/28/17 11:06:00 CDT phenylephri 2017-0 No Route: IV, Memoria ne (ANES) 3- Drug form: l 16:06: INJ, ONCE, Stop date: 01/28/17 11:06:00 CDT phenylephri 2017-0 No Route: IV, Memoria ne (ANES) 3 Drug form: l 16:06: INJ, ONCE, Stop [...] ONCE, Stop date: 01/28/17 11:06:00 CDT ketAMINE 20170 No Route: IV, Mem oria (ANES) 3 Drug form: l 15:46: INJ, ONCE, Stop date: 01/28/17 10:46:00 CDT ketAMINE 2017-0 No Route: IV, Mem oria (ANES) 3 Drug form: l 15:46: INJ, ONCE, Stop date: 01/28/17 10:46:00 CDT ketAMINE 20170 No Route: IV, Mem oria (ANES) 01-28 Drug form: l 15:46: INJ, ONCE, Stop date: 01/28/17 10:46:00 CDT ketAMINE 20170 No Route: IV, Mem oria (ANES) 3 Drug form: l 15:46: INJ, ONCE, Stop date: 01/28/17 10:46:00 CDT ketAMINE 0 No Route: IV, Mem oria (ANES) 01-28 Drug form: l 15:46: INJ, ONCE, Stop date: 01/28/17 10:46:00 CDT ketAMINE 0 No Route: IV, Mem oria (ANES) 01-28 Drug form: l 15:46: INJ, ONCE, Stop date: 01/28/17 10:46:00 CDT ketAMINE 0 No Route: IV, Mem oria (ANES) 3 Drug form: l 15:46: INJ, ONCE, Stop date: 01/28/17 10:46:00 CDT ketAMINE 0 No Route: IV, Mem oria (ANES) 3 Drug form: l 15:46: INJ, ONCE, Stop date: 01/28/17 10:46:00 CDT ketAMINE 0 No Route: IV, Mem oria (ANES) 3 Drug form: l 15:46: INJ, ONCE, Stop date: 01/28/17 10:46:00 CDT ketAMINE 20170 No Route: IV, Mem oria (ANES) 3 Drug form: l 15:46: INJ, ONCE, Stop date: 01/28/17 10:46:00 CDT ketAMINE 0 No Route: IV, Mem oria (ANES) 01-28 Drug form: l 15:46: INJ, ONCE, Stop date: 01/28/17 10:46:00 CDT ketAMINE No Route: IV, Mem oria (ANES) 01-28 Drug form: l 15:46: INJ, ONCE, Stop date: 01/28/17 10:46:00 CDT ketAMINE No Route: IV, Mem oria (ANES) 01-28 Drug form: l 15:46: INJ, ONCE, Stop date: 01/28/17 10:46:00 CDT ketAMINE No Route: IV, Mem oria (ANES) 01-28 Drug form: l 15:46: INJ, ONCE, Stop date: 01/28/17 10:46:00 CDT fentaNYL No Route: IV, Mem oria (ANES) 01-28 Drug form: l 15:31: INJ, ONCE, Stop date: 01/28/17 10:31:00 CDT dexamethaso No Route: IV, Memoria ne (ANES) 01-28 Drug form: l 15:31: INJ, ONCE, Stop date: 01/28/17 10:31:00 CDT propofol No Route: IV, Mem oria (ANES) 01-28 Drug form: l 15:31: INJ, ONCE, Stop date: 01/28/17 10:31:00 CDT lidocaine No Route: IV, Me moria (ANES) 01-28 Drug form: l 15:31: INJ, ONCE, Stop date: 01/28/17 10:31:00 CDT rocuronium No Route: IV, M emoria (ANES) 01-28 Drug form: l 15:31: INJ, ONCE, Stop date: 01/28/17 10:31:00 CDT fentaNYL 0 No Route: IV, Mem oria (ANES) 01-28 Drug form: l 15:31: INJ, ONCE, Stop date: 01/28/17 10:31:00 CDT dexamethaso 0 No Route: IV, Memoria ne (ANES) 01-28 Drug form: l 15:31: INJ, ONCE, Stop date: 01/28/17 10:31:00 CDT propofol 2017-0 No Route: IV, Mem oria (ANES) 01-28 Drug form: l 15:31: INJ, ONCE, Stop date: 01/28/17 10:31:00 CDT lidocaine 2017-0 No Route: IV, Me moria (ANES) 01-28 Drug form: l 15:31: INJ, ONCE, Stop date: 01/28/17 10:31:00 CDT rocuronium 2016-0 No Route: IV, M emoria (ANES) 01-28 Drug form: l 15:31: INJ, ONCE, Stop date: 01/28/17 10:31:00 CDT fentaNYL 2016-0 No Route: IV, Mem oria (ANES) 01-28 [...] ONCE, Stop date: 01/28/17 10:31:00 CDT rocuronium 2016-0 No Route: IV, M emoria (ANES) 01-28 Drug form: l 15:31: INJ, ONCE, Stop date: 01/28/17 10:31:00 CDT fentaNYL 2017-0 No Route: IV, Mem oria (ANES) 01-28 Drug form: l 15:31: INJ, ONCE, Stop date: 01/28/17 10:31:00 CDT dexamethaso 2017-0 No Route: IV, Memoria ne (ANES) 01-28 Drug form: l 15:31: INJ, ONCE, Stop date: 01/28/17 10:31:00 CDT propofol No Route: IV, Mem oria (ANES) 01-28 Drug form: l 15:31: INJ, ONCE, Stop date: 01/28/17 10:31:00 CDT lidocaine No Route: IV, Me moria (ANES) 01-28 Drug form: l 15:31: INJ, ONCE, Stop date: 01/28/17 10:31:00 CDT rocuronium No Route: IV, M emoria (ANES) 01-28 Drug form: l 15:31: INJ, ONCE, Stop date: 01/28/17 10:31:00 CDT fentaNYL No Route: IV, Mem oria (ANES) 01-28 Drug form: l 15:31: INJ, ONCE, Stop date: 01/28/17 10:31:00 CDT dexamethaso No Route: IV, Memoria ne (ANES) 01-28 Drug form: l 15:31: INJ, ONCE, Stop date: 01/28/17 10:31:00 CDT propofol No Route: IV, Mem oria (ANES) 01-28 Drug form: l 15:31: INJ, ONCE, Stop date: 01/28/17 10:31:00 CDT lidocaine 0 No Route: IV, Me moria (ANES) 01-28 Drug form: l 15:31: INJ, ONCE, Stop date: 01/28/17 10:31:00 CDT rocuronium 0 No Route: IV, M emoria (ANES) 01-28 Drug form: l 15:31: INJ, ONCE, Stop date: 01/28/17 10:31:00 CDT fentaNYL 0 No Route: IV, Mem oria (ANES) 01-28 [...] ONCE, Stop date: 01/28/17 10:31:00 CDT rocuronium 0 No Route: IV, M emoria (ANES) 01-28 Drug form: l 15:31: INJ, ONCE, Stop date: 01/28/17 10:31:00 CDT fentaNYL 0 No Route: IV, Mem oria (ANES) 01-28 Drug form: l 15:31: INJ, ONCE, Stop date: 01/28/17 10:31:00 CDT dexamethaso 0 No Route: IV, Memoria ne (ANES) 01-28 Drug form: l 15:31: INJ, ONCE, Stop date: 01/28/17 10:31:00 CDT propofol 0 No Route: IV, Mem oria (ANES) 01-28 Drug form: l 15:31: INJ, ONCE, Stop date: 01/28/17 10:31:00 CDT lidocaine 0 No Route: IV, Me moria (ANES) 01-28 Drug form: l 15:31: INJ, ONCE, Stop date: 01/28/17 10:31:00 CDT rocuronium 2016-0 No Route: IV, M emoria (ANES) 01-28 [...] ONCE, Stop date: 01/28/17 10:31:00 CDT lidocaine 2016-0 No Route: IV, Me moria (ANES) 01-28 Drug form: l 15:31: INJ, ONCE, Stop date: 01/28/17 10:31:00 CDT rocuronium 2016-0 No Route: IV, M emoria (ANES) 01-28 Drug form: l 15:31: INJ, ONCE, Stop date: 01/28/17 10:31:00 CDT fentaNYL 2016-0 No Route: IV, Mem oria (ANES) 01-28 Drug form: l 15:31: INJ, ONCE, Stop date: 01/28/17 10:31:00 CDT dexamethaso 2016-0 No Route: IV, Memoria ne (ANES) 01-28 Drug form: l 15:31: INJ, ONCE, Stop date: 01/28/17 10:31:00 CDT propofol 2016-0 No Route: IV, Mem oria (ANES) 01-28 Drug form: l 15:31: INJ, ONCE, Stop date: 01/28/17 10:31:00 CDT lidocaine 2016-0 No Route: IV, Me moria (ANES) 01-28 Drug form: l 15:31: INJ, ONCE, Stop date: 01/28/17 10:31:00 CDT rocuronium 2016-0 No Route: IV, M emoria (ANES) 01-28 [...] ONCE, Stop date: 01/28/17 10:31:00 CDT lidocaine 0 No Route: IV, Me moria (ANES) 01-28 Drug form: l 15:31: INJ, ONCE, Stop date: 01/28/17 10:31:00 CDT rocuronium 2016-0 No Route: IV, M emoria (ANES) 01-28 Drug form: l 15:31: INJ, ONCE, Stop date: 01/28/17 10:31:00 CDT fentaNYL 0 No Route: IV, Mem oria (ANES) 01-28 Drug form: l 15:31: INJ, ONCE, Stop date: 01/28/17 10:31:00 CDT dexamethaso 0 No Route: IV, Memoria ne (ANES) 01-28 Drug form: l 15:31: INJ, ONCE, Stop date: 01/28/17 10:31:00 CDT propofol 0 No Route: IV, Mem oria (ANES) 01-28 Drug form: l 15:31: INJ, ONCE, Stop date: 01/28/17 10:31:00 CDT lidocaine 2016-0 No Route: IV, Me moria (ANES) 01-28 Drug form: l 15:31: INJ, ONCE, Stop date: 01/28/17 10:31:00 CDT rocuronium 0 No Route: IV, M emoria (ANES) 01-28 Drug form: l 15:31: INJ, ONCE, Stop date: 01/28/17 10:31:00 CDT fentaNYL 2016-0 No Route: IV, Mem oria (ANES) 01-28 Drug form: l 15:31: INJ, ONCE, Stop date: 01/28/17 10:31:00 CDT dexamethaso 2016-0 No Route: IV, Memoria ne (ANES) 01-28 Drug form: l 15:31: INJ, ONCE, Stop date: 01/28/17 10:31:00 CDT propofol 2016-0 No Route: IV, Mem oria (ANES) 01-28 Drug form: l 15:31: INJ, ONCE, Stop date: 01/28/17 10:31:00 CDT lidocaine 2017-0 No Route: IV, Me moria (ANES) 01-28 Drug form: l 15:31: INJ, ONCE, Stop date: 01/28/17 10:31:00 CDT rocuronium 2016-0 No Route: IV, M emoria (ANES) 01-28 Drug form: l 15:31: INJ, ONCE, Stop date: 01/28/17 10:31:00 CDT fentaNYL 0 No Route: IV, Mem oria (ANES) 01-28 Drug form: l 15:31: INJ, ONCE, Stop date: 01/28/17 10:31:00 CDT dexamethaso 2016-0 No Route: IV, Memoria ne (ANES) 01-28 Drug form: l 15:31: INJ, ONCE, Stop date: 01/28/17 10:31:00 CDT propofol 2016-0 No Route: IV, Mem oria (ANES) 01-28 Drug form: l 15:31: INJ, ONCE, Stop date: 01/28/17 10:31:00 CDT lidocaine 2017-0 No Route: IV, Me moria (ANES) 01-28 Drug form: l 15:31: INJ, ONCE, Stop date: 01/28/17 10:31:00 CDT rocuronium 2016-0 No Route: IV, M emoria (ANES) 01-28 Drug form: l 15:31: INJ, ONCE, Stop date: 01/28/17 10:31:00 CDT fentaNYL 2016-0 No Route: IV, Mem oria (ANES) 01-28 Drug form: l 15:31: INJ, ONCE, Stop date: 01/28/17 10:31:00 CDT dexamethaso No Route: IV, Memoria ne (ANES) 01-28 Drug form: l 15:31: INJ, ONCE, Sushil Stop date: 01/28/17 10:31:00 CDT propofol No Route: IV, Mem oria (ANES) 01-28 Drug form: l 15:31: INJ, ONCE, Sushil 00 Stop date: 01/28/17 10:31:00 CDT lidocaine No Route: IV, Me moria (ANES) 01-28 Drug form: l 15:31: INJ, ONCE, Sushil 00 Stop date: 01/28/17 10:31:00 CDT rocuronium No Route: IV, M emoria (ANES) 01-28 Drug form: l 15:31: INJ, ONCE, Sushil 00 Stop date: 01/28/17 10:31:00 CDT acetaminoph No Route: IV, Memoria en [...] acetaminoph No Route: IV, Memoria en (ANES) 3- Drug form: l (ANES) 14:46: INJ, Start Agnes nn date: 01/28/17 9:46:00 CDT, Stop date: 01/28/17 10:46:00 CDT acetaminoph No Route: IV, Memoria en (ANES) 3 Drug form: l (ANES) 14:46: INJ, Start Agnes nn date: 01/28/17 9:46:00 CDT, Stop date: 01/28/17 10:46:00 CDT acetaminoph 2016-0 No Route: IV, Memoria en (ANES) 01-28 Drug form: l (ANES) 14:46: INJ, Start Agnes date: 01/28/17 9:46:00 CDT, Stop date: 01/28/17 10:46:00 CDT acetaminoph 0 No Route: IV, Memoria en (ANES) 01-28 Drug form: l (ANES) 14:46: INJ, Start Agnes date: 01/28/17 9:46:00 CDT, Stop date: 01/28/17 10:46:00 CDT dexmedetomi 0 No Route: IV, Memoria dine (ANES) 01-28 Drug form: l (ANES) 14:42: INJ, Start Agnes date: 01/28/17 9:42:00 CDT, Stop date: 01/28/17 10:42:00 CDT dexmedetomi 0 No Route: IV, Memoria dine (ANES) 01-28 Drug form: l (ANES) 14:42: INJ, Start Agnes date: 01/28/17 9:42:00 CDT, Stop date: 01/28/17 10:42:00 CDT dexmedetomi 2016-0 No Route: IV, Memoria dine (ANES) 01-28 Drug form: l (ANES) 14:42: INJ, Start Agnes date: 01/28/17 9:42:00 CDT, Stop date: 01/28/17 10:42:00 CDT dexmedetomi 0 No Route: IV, Memoria dine (ANES) 01-28 Drug form: l (ANES) 14:42: INJ, Start Agnes date: 01/28/17 9:42:00 CDT, Stop date: 01/28/17 10:42:00 CDT dexmedetomi 2017-0 No Route: IV, Memoria dine (ANES) 01-28 Drug form: l (ANES) 14:42: INJ, Start Agnes nn date: 01/28/17 9:42:00 CDT, Stop date: 01/28/17 [...] 2017-0 No Route: IV, Memoria dine (ANES) 3- Drug form: l (ANES) 14:42: INJ, Start Agnes nn 00 date: 01/28/17 9:42:00 CDT, Stop date: 01/28/17 10:42:00 CDT dexmedetomi 2017-0 No Route: IV, Memoria dine (ANES) 3- Drug form: l (ANES) 14:42: INJ, Start Agnes nn date: 01/28/17 9:42:00 CDT, Stop date: 01/28/17 10:42:00 CDT sodium 2017-0 No Route: IV, Memor ia chloride 3- Drug form: l 0.9% 100 ml 14:32: INJ, Start Sushil INJ (ANES) 00 date: + ceFAZolin 01/28/17 (ANES) 9:32:00 (ANES) CDT, Stop date: 01/28/17 10:32:00 CDT sodium 2017-0 No Route: IV, Memor ia chloride 3- Drug form: l 0.9% 100 ml 14:32: INJ, Start [place] INJ (ANES) 00 date: + ceFAZolin 01/28/17 (ANES) 9:32:00 (ANES) CDT, Stop date: 01/28/17 10:32:00 CDT sodium 2017-0 No Route: IV, Memor ia chloride 3-28 Drug form: l 0.9% 100 ml 14:32: INJ, Start [place] INJ (ANES) 00 date: + ceFAZolin 01/28/17 [...] l 0.9% 100 ml 14:32: INJ, Start [place] INJ (ANES) 00 date: + ceFAZolin 01/28/17 (ANES) 9:32:00 (ANES) CDT, Stop date: 01/28/17 10:32:00 CDT sodium 2017-0 No Route: IV, Memor ia chloride 3-28 Drug form: l 0.9% 100 ml 14:32: INJ, Start [place] INJ (ANES) 00 date: + ceFAZolin 01/28/17 [...] l 0.9% 100 ml 14:32: INJ, Start [place] INJ (ANES) date: + ceFAZolin 01/28/17 (ANES) 9:32:00 (ANES) CDT, Stop date: 01/28/17 10:32:00 CDT sodium No Route: IV, Memor ia chloride 3- Drug form: l 0.9% 100 ml 14:32: INJ, Start Sushil INJ (ANES) 00 date: + ceFAZolin 01/28/17 (ANES) 9:32:00 (ANES) CDT, Stop date: 01/28/17 10:32:00 CDT LR 1000 mL No Route: IV, M emoria INJ (ANES) - Total l 14:21: Volume: [place] 00 1,000, Start date: 01/28/17 9:21:00 CDT, Stop date: 01/28/17 10:21:00 CDT LR 1000 mL No Route: IV, M emoria INJ (ANES) - Total l 14:21: Volume: Sushil 00 1,000, Start date: 01/28/17 9:21:00 CDT, Stop date: 01/28/17 10:21:00 CDT LR 1000 mL No Route: IV, M emoria INJ (ANES) 3-28 Total l 14:21: Volume: [place] 00 1,000, Start date: 01/28/17 9:21:00 CDT, Stop date: 01/28/17 10:21:00 CDT LR 1000 mL No Route: IV, M emoria INJ (ANES) 3-28 Total l 14:21: Volume: [place] 00 1,000, Start date: 01/28/17 9:21:00 CDT, Stop date: 01/28/17 10:21:00 CDT LR 1000 mL No Route: IV, M emoria INJ (ANES) 3-28 Total l 14:21: Volume: Sushil 00 1,000, Start date: 01/28/17 9:21:00 CDT, Stop date: 01/28/17 10:21:00 CDT LR 1000 mL No Route: IV, M emoria INJ (ANES) 3-28 Total l 14:21: Volume: [place] 00 1,000, Start date: 01/28/17 9:21:00 CDT, Stop date: 01/28/17 10:21:00 CDT LR 1000 mL No Route: IV, M emoria INJ (ANES) 3-28 Total l 14:21: Volume: Sushil 00 1,000, Start date: 01/28/17 9:21:00 CDT, Stop date: 01/28/17 10:21:00 CDT LR 1000 mL No Route: IV, M emoria INJ (ANES) 3-28 Total l 14:21: Volume: [place] 00 1,000, Start date: 01/28/17 9:21:00 CDT, Stop date: 01/28/17 10:21:00 CDT LR 1000 mL No Route: IV, M emoria INJ (ANES) 3-28 Total l 14:21: Volume: Sushil 00 1,000, Start date: 01/28/17 9:21:00 CDT, Stop date: 01/28/17 10:21:00 CDT LR 1000 mL No Route: IV, M emoria INJ (ANES) 3-28 Total l 14:21: Volume: Sushil 00 1,000, Start date: 01/28/17 9:21:00 CDT, Stop date: 01/28/17 10:21:00 CDT LR 1000 mL No Route: IV, M emoria INJ (ANES) 3- Total l 14:21: Volume: Sushil 00 1,000, Start date: 01/28/17 9:21:00 CDT, Stop date: 01/28/17 10:21:00 CDT LR 1000 mL No Route: IV, M emoria INJ (ANES) 3 Total l 14:21: Volume: [place] 00 1,000, Start date: 01/28/17 9:21:00 CDT, Stop date: 01/28/17 10:21:00 CDT LR 1000 mL No Route: IV, M emoria INJ (ANES) 3 Total l 14:21: Volume: Sushil 00 1,000, Start date: 01/28/17 9:21:00 CDT, Stop date: 01/28/17 10:21:00 CDT LR 1000 mL No Route: IV, M emoria INJ (ANES) 01-28 Total l 14:21: Volume: [place] 00 1,000, Start date: 01/28/17 9:21:00 CDT, Stop date: 01/28/17 10:21:00 CDT ceFAZolin No Notes: Memori a 3 Same as: l 08:00: Ancef Sushil 00 ceFAZolin 2016-0 No Notes: Memori a 3 Same as: l 08:00: Ancef Sushil 00 ceFAZolin 2016-0 No Notes: Memori a 3 Same as: l 08:00: Ancef Sushil 00 ceFAZolin 2016-0 No Notes: Memori a 3 Same as: l 08:00: Ancef [place] 00 ceFAZolin 2016-0 No Notes: Memori a 3 Same as: l 08:00: Ancef Sushil 00 ceFAZolin 2016-0 No Notes: Memori a 3 Same as: l 08:00: Ancef [place] 00 ceFAZolin 2016-0 No Notes: Memori a 3 Same as: l 08:00: Ancef [place] 00 ceFAZolin No Notes: Memori a 3-28 Same as: l 08:00: Ancef [place] ceFAZolin 2016- No Notes: Memori a 3-28 Same as: l 08:00: Ancef [place] ceFAZolin 2016-0 No Notes: Memori a 3-28 Same as: l 08:00: Ancef Sushil ceFAZolin No Notes: Memori a 3-28 Same as: l 08:00: Ancef [place] ceFAZolin No Notes: Memori a 3-28 Same as: l 08:00: Ancef Sushil ceFAZolin No Notes: Memori a 3-28 Same as: l 08:00: Ancef Sushil ceFAZolin No Notes: Memori a 3-28 Same as: l 08:00: Ancef [place] 00 Melatonin 5 Yes 15 mg = 3 M emoria MG 3-27 tab, SL, l Sublingual 17:02: Bedtime, 0 H [place] Tablet 00 Refill(s) Melatonin Yes 15 mg = 3 M emoria MG 3-27 tab, SL, l Sublingual 17:02: Bedtime, 0 H [place] Tablet 00 Refill(s) Melatonin Yes 15 mg = 3 M emoria [...] tab, PO, l tablet 17:01: Daily, 0 [place] 00 Refill(s) lisinopril Yes 40 mg = 1 Me moria 40 mg oral 3-27 tab, PO, l tablet 17:01: Daily, 0 [place] 00 Refill(s) lisinopril Yes 40 mg = 1 Me moria 40 mg oral 3-27 tab, PO, l tablet 17:01: Daily, 0 Sushil 00 Refill(s) lisinopril Yes 40 mg = 1 Me moria 40 mg oral 3-27 tab, PO, l tablet 17:01: Daily, 0 [place] 00 Refill(s) lisinopril Yes 40 mg = 1 Me moria 40 mg oral 3-27 tab, PO, l tablet 17:01: Daily, 0 [place] 00 Refill(s) lisinopril 2017 Yes 40 mg = 1 Me moria 40 mg oral 3-27 tab, PO, l tablet 17:01: Daily, 0 Sushil Refill(s) lisinopril Yes 40 mg = 1 [...] tab, PO, l tablet 17:01: Daily, 0 [place] 00 Refill(s) lisinopril Yes 40 mg = 1 Me moria 40 mg oral 3-27 tab, PO, l tablet 17:01: Daily, 0 [place] 00 Refill(s) lisinopril Yes 40 mg = 1 Me moria 40 mg oral 3-27 tab, PO, l tablet 17:01: Daily, 0 [place] 00 Refill(s) Alprazolam Yes 1 mg = 1 Mem oria 1 MG Oral 3-27 tab, PO, l Tablet 17:00: BID, 0 [Xanax] 00 Refill(s) Multiple 0 Yes 1 tab, PO, Mem oria Vitamins 3-27 Daily, 0 l oral tablet 17:00: Refill(s) H [place] naproxen Yes 500 mg = 1 Mem oria 500 mg oral 3-27 tab, PO, l tablet 17:00: BID, # 60 Mio n 00 tab, 0 Refill(s) Alprazolam Yes 1 mg = 1 Mem oria 1 MG Oral 3-27 tab, PO, l Tablet 17:00: BID, 0 [place] [Xanax] 00 Refill(s) Multiple Yes 1 tab, [...] Daily, 0 l oral tablet 17:00: Refill(s) naproxen Yes 500 mg = 1 [...] tab, PO, l Tablet 17:00: BID, 0 [place] [Xanax] 00 Refill(s) Multiple Yes 1 tab, [...] tab, PO, l Tablet 17:00: BID, 0 [place] [Xanax] 00 Refill(s) Multiple Yes 1 tab, [...] tab, PO, l Tablet 17:00: BID, 0 [place] [Xanax] 00 Refill(s) Multiple Yes 1 tab, PO, Mem oria Vitamins 3-27 Daily, 0 l oral tablet 17:00: Refill(s) H naproxen Yes 500 mg = 1 Mem oria 500 mg oral 3-27 tab, PO, l tablet 17:00: BID, # 60 Mio n 00 tab, 0 Refill(s) Alprazolam 2017 Yes 1 mg = 1 Mem oria [...] 00 patch, 0 extended Refill(s) release fentaNYL 2016- Yes 1 patch, Memor ia 100 mcg/hr [...] 00 patch, 0 extended Refill(s) release gabapentin 2017 Yes 800 mg = 1 M emoria 800 MG Oral 3-27 tab, PO, l Tablet 16:57: BID, 0 [place] [Neurontin] 00 Refill(s) Acetaminoph 2017 Yes 1 tab, PO, Memoria en 300 MG / 3-27 Q6H, 0 l Hydrocodone 16:57: Refill(s) H ermann Bitartrate 00 10 MG Oral Tablet [Vicodin 10/300] gabapentin 2017 Yes 800 mg = 1 M emoria 800 MG Oral 3-27 tab, PO, l Tablet 16:57: BID, 0 [place] [Neurontin] 00 Refill(s) Acetaminoph 2017 Yes 1 tab, PO, Memoria en 300 MG / 3-27 Q6H, 0 l Hydrocodone 16:57: Refill(s) H ermann Bitartrate 00 10 MG Oral Tablet [Vicodin 10/300] gabapentin Yes 800 mg = 1 M emoria 800 MG Oral 3-27 tab, PO, l Tablet 16:57: BID, 0 [place] [Neurontin] 00 Refill(s) Acetaminoph Yes 1 tab, [...] tab, PO, l Tablet 16:57: BID, 0 [place] [Neurontin] 00 Refill(s) Acetaminoph Yes 1 tab, [...] tab, PO, l Tablet 16:57: BID, 0 [place] [Neurontin] 00 Refill(s) Acetaminoph Yes 1 tab, [...] tab, PO, l Tablet 16:57: BID, 0 [place] [Neurontin] 00 Refill(s) Acetaminoph Yes 1 tab, PO, Memoria en 300 MG / 3-27 Q6H, 0 l Hydrocodone 16:57: Refill(s) H [place] Bitartrate 00 10 MG Oral Tablet [Vicodin 10/300] gabapentin Yes 800 mg = 1 M emoria 800 MG Oral 3-27 tab, PO, l Tablet 16:57: BID, 0 [place] [Neurontin] 00 Refill(s) Acetaminoph Yes 1 tab, [...] Immunizations Ordered Filled Immunization Date Status Comments [facility] e Immunization Name Name TD, NOS 2021-06-28 Completed [facility]00 [facility] TD, NOS 2021-06-28 Completed [facility] 00:00:00 [facility] TD, NOS 2021-06-28 Completed [facility] 00:00:00 [facility] Td 2021-06-28 Completed [facility] 00:00:00 [facility] Td 2021-06-28 Completed [facility] 00:00:00 [facility] Td 2021-06-28 Completed [facility] 00:00:00 [facility] Td 2021-06-28 Completed [facility] 00:00:00 [facility] Td 2021-06-28 Completed [facility] 00:00:00 [facility] TD, NOS 2021-06-28 Completed [facility] 00:00:00 [facility] TD, NOS 2014-04-14 Completed [facility] 00:00:00 [facility] TD, NOS 2014-04-14 Completed [facility] 00:[facility]:00 [facility] TD, NOS 2014-04-14 Completed [facility] 00:00:00 [facility] Td 2014-04-14 Completed [facility] 00:00:00 [facility] Td 2014-04-14 Completed [facility] 00:00:00 [facility] Td 2014-04-14 Completed [facility] 00:00:00 [facility] Td 2014-04-14 Completed [facility] 00[facility]00:00 [facility] Td 2014-04-14 Completed [facility] 00:00:00 [facility] TD, NOS 2014-04-14 Completed [facility] 00:00:00 [facility] Vital Signs Vital Name Observation Time Observation Value Comments Source Weight Dosing 2020-06-09 09:19:55 Height/Length 2020-06-09 09:19:55 Measured Systolic blood 2023-06-17 21:08:00 117 mm[Hg] Univer sity of pressure [facility] Diastolic blood 2023-06-17 21:08:00 65 mm[Hg] Unive rsity of pressure [facility] Heart rate 2023-06-17 21:08:00 87 /min [facility] Body temperature 2023-06-17 21:08:00 36.33 [facility] Respiratory rate 2023-06-17 21:08:00 16 /[facility] in 2023-06-17 21:08:00 98 /min [facility] Arterial blood by [facility] Pulse oximetry Branch Body weight 2023-06-17 09:14:00 54.477 kg [facility] BMI 2023-06-17 09:14:00 17.23 kg/m2 [facility] Body height 2023-06-10 00:11:00 177.8 cm [facility] Systolic blood 2022-12-24 03:48:00 162 mm[Hg] Univer sity of pressure [facility] Diastolic blood 2022-12-24 03:48:00 93 mm[Hg] Unive rsity of pressure [facility] Heart rate 2022-12-24 03:48:00 95 [facility] 2022-12-24 03:48:00 25 /min Univ ers[facility] of [facility] Oxygen saturation in 2022-12-24 03:48:00 99 /min [facility] Arterial blood by [facility] Pulse oximetry Branch Body temperature 2022-12-23 23:56:00 37.28 Radha [facility] ersity of [facility] Body height 2022-12-23 23:56:00 180.3 cm [facility] [place] Body weight 2022-12-23 23:56:00 61.689 kg [facility] BMI 2022-12-23 23:56:00 18.97 kg/m2 [facility] Systolic blood 2021-07-16 19:30:00 117 mm[Hg] Univer sity of pressure [facility] Diastolic blood 2021-07-16 19:30:00 71 mm[Hg] Unive rsity of pressure [facility] Heart rate 2021-07-16 19:30:00 83 /min [facility] Body temperature 2021-07-16 19:30:00 36.94 Radha [facility] Respiratory rate 2021-07-16 19:30:00 14 /min [facility] ersity of [facility] Body weight 2021-07-16 19:30:00 66.497 kg [facility] [place] BMI 2021-07-16 19:30:00 20.45 kg/m2 [facility]i ty [facility] Oxygen saturation in 2021-07-16 19:30:00 96 /min [facility] of Arterial blood by [facility] Pulse oximetry Branch Height/Length 2021-11-20 11:58:08 170 [...] Systolic (mm Hg) 2020-05-27 02:08:00 Josh rial [place] Diastolic (mm Hg) 2020-05-27 02:08:00 Mem orial [facility] Respitory Rate 2020-05-27 02:08:00 [facility] [place] Temperature Oral (F) 2020-05-27 02:08:00 98 F [facility] [place] Systolic (mm Hg) 2020-05-26 23:35:00 Josh rial [place] Diastolic (mm Hg) 2020-05-26 23:35:00 Mem [facility] [place] Systolic (mm Hg) 2020-05-26 22:32:00 Josh rial [facility]ush[facility] Diastolic (mm Hg) 2020-05-26 22:32:00 Mem [facility] [place] Respitory Rate 2020-05-26 21:45:00 Memori al [place] Respitory Rate 2020-05-26 21:30:00 Memori al [facility] Height 2020-05-26 20:53:00 157.48 cm [facility] [place] BMI Calculated 2020-05-26 20:53:00 Memori al [facility] Weight 2020-05-26 20:53:00 [facility] Heart Rate 2020-05-26 20:53:00 [facility] Temperature Oral (F) 2020-05-26 20:53:00 98.3 F [facility] [place] Systolic (mm Hg) 2017-11-10 20:16:00 Josh [facility] [place] Diastolic (mm Hg) 2017-11-10 20:16:00 Mem o[facility] Respitory Rate 2017-11-10 20:16:00 [facility] [place] Heart Rate 2017-11-10 20:16:00 [facility] Weight 2017-11-10 18:53:00 [facility] BMI Calculated 2017-11-10 18:53:00 [facility] [place] Height 2017-11-10 18:53:00 177.8 cm [facility] [place] Systolic (mm Hg) 2017-10-14 07:42:00 Josh rial S[facility] Diastolic (mm Hg) 2017-10-14 07:42:00 Mem o[facility] [place] Heart Rate 2017-10-14 07:42:00 [facility] Respitory Rate 2017-10-14 07:42:00 Memori al [facility] Systolic (mm Hg) 2017-10-14 05:48:00 Josh [facility] [place] Diastolic (mm Hg) 2017-10-14 05:48:00 Mem [facility] [place] Respitory Rate 2017-10-14 05:48:00 [facility] [place] Heart Rate 2017-10-14 05:48:00 [facility] [place] Temperature Oral (F) 2017-10-14 05:48:00 98.1 F [facility] Temperature Oral (F) 2017-10-14 03:06:00 97.9 F [facility] [place] Heart Rate 2017-10-14 03:06:00 [facility] [place] Respitory Rate 2017-10-14 03:06:00 [facility] Systolic (mm Hg) 2017-10-14 03:06:00 Josh rial [place] Diastolic (mm Hg) 2017-10-14 03:06:00 Mem [facility] [place] Weight 2017-10-14 03:06:00 [facility] [place] Respitory Rate 2017-09-07 08:00:00 [facility] [place] Systolic (mm Hg) 2017-09-07 08:00:00 Josh [facility] [place] Diastolic (mm Hg) 2017-09-07 08:00:00 Mem o[facility] Respitory Rate 2017-09-07 06:45:00 Memori al [place] Systolic (mm Hg) 2017-09-07 06:45:00 Josh [facility] [place] Diastolic (mm Hg) 2017-09-07 06:45:00 Mem o[facility] Respitory Rate 2017-09-07 06:38:00 [facility]ori [facility] [place] Systolic (mm Hg) 2017-09-07 06:38:00 Josh [facility] [place] Diastolic (mm Hg) 2017-09-07 06:38:00 Mem o[facility] [place] Temperature Oral (F) 2017-09-07 02:52:00 98.8 F [facility] Temperature Oral (F) 2017-09-07 00:51:00 98.8 F [facility] Weight 2017-09-07 00:29:00 [facility] Height 2017-09-07 00:29:00 177.8 cm [facility] [place] Temperature Oral (F) 2017-09-07 00:29:00 98.9 F [facility] [place] BMI Calculated 2017-09-07 00:29:00 [facility]ori [facility] [place] Heart Rate 2017-09-07 00:29:00 [facility] [place] Systolic (mm Hg) 2017-01-31 16:29:00 Josh rial [place] Diastolic (mm Hg) 2017-01-31 16:29:00 Mem o[facility] [place] Respitory Rate 2017-01-31 16:29:00 Memori al [facility] Heart Rate 2017-01-31 16:29:00 [facility] Temperature Oral (F) 2017-01-31 16:29:00 99.1 F [facility] [place] Heart Rate 2017-01-31 12:44:00 [facility] [place] Respitory Rate 2017-01-31 12:44:00 Memori al [place] Temperature Oral (F) 2017-01-31 12:44:00 99.0 F [facility] [place] Systolic (mm Hg) 2017-01-31 12:44:00 Josh rial [place] Diastolic (mm Hg) 2017-01-31 12:44:00 Mem orial [place] Temperature Oral (F) 2017-01-31 09:53:00 98.7 F [facility] Heart Rate 2017-01-31 09:53:00 [facility] [place] Respitory Rate 2017-01-31 09:53:00 Memori al [facility] Systolic (mm Hg) 2017-01-31 09:53:00 Josh rial Sushil Diastolic (mm Hg) 2017-01-31 09:53:00 Mem o[facility] [place] Height 2017-01-28 22:48:00 177.8 cm [facility] [place] Weight 2017-01-28 22:48:00 [facility] BMI Calculated 2017-01-28 22:48:00 Memori al [place] Weight 2017-01-28 12:36:00 [facility] [place] BMI Calculated 2017-01-28 12:36:00 Memori al [place] Height 2017-01-28 12:36:00 179.07 cm [facility] [place] Weight 2017-01-27 17:04:00 [facility] [place] Height 2017-01-27 17:04:00 177.8 cm [facility] BMI Calculated 2017-01-27 17:04:00 Paulie Ortiz Procedures Procedure Date / Time Performing Clinician Source Performed BASIC METABOLIC PANEL 2023-06-17 20:31:[address] [facility] (NA, K, CL, CO2, GLUCOSE, Medica l Branch BUN, CREATININE, CA) COVID-19 (ID NOW RAPID 2023-06-17 16:37:00 Jimenez Goldman [facility] TESTING) [facility] [place] OSMOLALITY URINE 2023-06-17 06:19:00 Ananthony, [facility] CREATININE, URINE RANDOM 2023-06-17 06:19:00 Ovwest, [facility] SODIUM, URINE RANDOM 2023-06-17 06:19:00 Aissatou [facility] URIC ACID 2023-06-17 06:18:00 Ananthony [facility] BASIC METABOLIC PANEL 2023-06-17 06:18:[facility] (NA, K, CL, CO2, GLUCOSE, Medica l Branch BUN, CREATININE, CA) N-TERMINAL PRO-BNP 2023-06-17 06:18:00 Richie Dejesus [facility] TROPONIN I 2023-06-16 09:42:00 Ovwest [facility] BASIC METABOLIC PANEL 2023-06-16 09:42:00 [facility] (NA, K, CL, CO2, GLUCOSE, Medica l Branch BUN, CREATININE, CA) TROPONIN I 2023-06-15 10:04:00 Aissatou [facility] BASIC METABOLIC PANEL 2023-06-15 10:04:00 [facility] (NA, K, CL, CO2, GLUCOSE, Medica l Branch BUN, CREATININE, CA) MAGNESIUM 2023-06-14 10:07:00 Aissatou [facility] TROPONIN I 2023-06-14 10:07:00 [facility] BASIC METABOLIC PANEL 2023-06-14 10:07:00 [place], [facility] (NA, K, CL, CO2, GLUCOSE, Medica l Branch BUN, CREATININE, CA) MAGNESIUM 2023-06-12 08:56:00 Aissatou [facility] TROPONIN I 2023-06-12 08:56:00 Aissatou [facility] BASIC METABOLIC PANEL 2023-06-12 08:56:00 Aissatou [facility] (NA, K, CL, CO2, GLUCOSE, Medica l Branch BUN, CREATININE, CA) LIPID PANEL (39053)(TOTAL 2023-06-12 08:56:00 Aissatou [facility] CHOLESTEROL, Medical Branch TRIGLYCERIDES, HDL) GLYCOSYLATED HEMOGLOBIN 2023-06-12 08:56:00 Aissatou [facility] (A1C) Medical Branch TROPONIN I 2023-06-11 17:33:00 Aissatou [facility] AMMONIA, PLASMA 2023-06-11 09:20:00 Aissatou [facility] VITAMIN B12, LEVEL 2023-06-11 09:20:00 Aissatou [facility] [place] TROPONIN I 2023-06-11 09:20:00 Aissatou [facility] THYROID STIMULATING 2023-06-11 09:20:00 Aissatou [facility] HORMONE Medical Branch BASIC METABOLIC PANEL 2023-06-11 09:20:[facility] ([facility], K, CL, CO2, GLUCOSE, Medica l Branch BUN, CREATININE, CA) CBC WITH DIFF 2023-06-11 09:20:00 Min [facility] TROPONIN I 2023-06-11 05:14:00 Aissatou [facility] TROPONIN I 2023-06-10 22:54:00 Aissatou [facility] TRANSTHORACIC ECHO (TTE) 2023-06-10 19:57:00 Min [facility] COMPLETE W/ CONTRAST Medical Bra nch MAGNESIUM 2023-06-10 17:10:00 Aissatou [facility] TROPONIN I 2023-06-10 17:10:00 Aissatou [facility] BASIC METABOLIC PANEL 2023-06-10 17:10:00 Aissatou [facility] (NA, K, CL, CO2, GLUCOSE, Medica l Branch BUN, CREATININE, CA) CBC WITH DIFF 2023-06-10 17:10:00 Aissatou [facility] TROPONIN I 2023-06-10 13:21:00 Min [facility] URINE DRUG (IMMUNOASSAY) 2023-06-10 03:37:00 Jonel Richard [facility] SCREEN URINALYSIS 2023-06-10 03:37:00 Jonel [facility] HEAD WO CONTRAST 2023-06-10 01:42:48 Jonel Richard [facility] XR CHEST 1 VW 2023-06-10 01:34:01 Jonel [facility] LIPID PANEL (20790)(TOTAL 2023-06-10 01:25:00 Shane Lester [facility] CHOLESTEROL, [facility] TRIGLYCERIDES, HDL) SERUM DRUG (IMMUNOASSAY) 2023-06-10 01:25:00 Jonel Richard [facility] SCREEN HB ECG ROUTINE & RHYTHM 2023-06-10 01:23:[address] [facility] STRIP [facility] Branch LIPASE 2023-06-10 01:15:00 Jonel [facility] TROPONIN I 2023-06-10 01:15:00 Jonel [facility] COMP. METABOLIC PANEL 2023-06-10 01:15:00 Jonel Richard [facility] ([id number]) Medical Branch ETHANOL 2023-06-10 01:15:00 [facility]el [facility] CBC WITH DIFF 2023-06-10 01:15:00 Jonel [facility] COVID-19 (ID NOW RAPID 2023-06-10 01:15:00 Jonel Richard [facility] TESTING) Medical [place] LAB ONLY COVID 2023-06-10 01:15:00 Jonel Richard [facility] INTERPRETATION [facility] NOTICE OF PRIVACY 2023-06-09 23:57:12 Doctor Hilda [facility] PRACTICES [place] [facility] CONSENT/REFUSAL FOR 2023-06-09 23:56:42 Doctor Hilda, [facility] DIAGNOSIS AND TREATMENT [place] [facility] EKG (SCANNED DOCUMENTS) 2023-06-09 05:01:00 Doctor Angie Stevens [facility] Name [facility] COMP. METABOLIC PANEL 2022-12-24 01:55:00 Marianne Prado [facility] ([id number]) Medical Branch ETHANOL 2022-12-24 01:55:00 Marianne Prado [facility] N-TERMINAL PRO-BNP 2022-12-24 01:55:00 Marianne Prado [facility] CBC WITH DIFF 2022-12-24 01:09:00 Marianne Prado [facility] LACTIC ACID WHOLE BLOOD 2022-12-24 00:44:00 Marianne Prado [facility] CONSENT/REFUSAL FOR 2022-12-23 23:48:58 Doctor Stevens [facility] DIAGNOSIS AND TREATMENT [place] [facility] Myelography via lumbar 2017-11-10 20:15:24 Memor ial Sushil injection, including radiological supervision and interpretation; lumbosacral Administration of [facility] nn steroid<sup>1</sup> Bilateral [facility] of fallopian tubes Hip [facility] replacement<sup>2</sup> Lysis of adhesions of [facility] abdomen [facility] [place] operation<sup>3</sup> Encounters Start End Encounter Admission Attending Care Care Encounter Source Date/Time Date/Time Type Type Clinicians Facility Department ID 2021-09-03 Emergency [facility] [id number] Univers 18:27:[address] [facility] 2021-09-02 Emergency [facility] [id number] [facility] 14:46[facility] 2021-09-02 Emergency [facility] [id number] Univers 12:08:11 ity [facility] 2020-06-08 Inpatient 1 Enrique Phelps [facility] GPY [id number] 22:36:00 Enrique Phelps -[id number] [facility] 2023-06-18 2023-06-18 Transition ES Garcia 1.2.840.114 [id number] Univers 00:00:00 00:00:00 of Care Altagracia MURILLO [id number] it y [id number] [phone] [facility] 403 Branch 2023-06-09 2023-06-17 Inpatient X AISSATOU [facility] JOANNA [id number] Univers 19:09:00 19:22:00 TAWNY ity of [facility] 2023-06-09 2023-06-17 [facility] Hilary Jonel Alannah [facility] 1.2.840.11 [id number] Univers 19:09:00 19:22:00 Encounter Tawny Reyez [id number] ity of Angie Mathis [id number] [facility] [id number] [facility] 081 Branch 2023-06-09 2023-06-09 Orders Doctor CARLITOS 1.2.840.114 [id number] Univers 00:00:00 00:00:00 Only Unassigned, EWA [id number] ity of [place] [facility] [id number] Derek as [phone] [facility] 009 Branch 2022-12-23 2022-12-23 Emergency X ASHKAN [facility] ERT [id number] Univers 18:04:00 22:00:[address] [facility] 2022-12-23 2022-12-23 Emergency [facility] 1.2.840.114 [id number] Univers 18:04:00 22:00:00 Marianne MARINO [id number] i [id number] [phone] [facility] 084 Branch 2022-11-03 2022-11-03 Outpatient DMG DMG [id number] Devoted 00:00:00 00:00:00 [id number] Medica l Group 2022-09-21 2022-09-21 Outpatient DMG [facility] [id number] Devoted 00:00:00 00:00:00 [id number] Medica l Group 2022-09-05 2022-09-05 [facility] 1.2.840.114 [id number] Univers 00:00:00 00:00:00 [facility] HEALTH [id number] it y of [place] [id number] Derek as MEHRDAD?BLEA [phone] [address] OFFICE [facility] 2022-08-08 2022-08-08 [facility] 1.2.840.114 [id number] Univers 00:00:00 00:00:00 Guilherme HEALTH [id number] it y of [place] [id number] Derek as MEHRDAD?BLEA [phone] [address] OFFICE [facility] 2022-07-22 2022-07-22 [facility] 1.2.840.114 [id number] Univers 00:00:00 00:00:00 [facility] [id number] it y of [place] [id number] Derek as MEHRDAD?BLEA [phone] [address] 2022-07-01 2022-07-01 Outpatient DMG [facility] [id number] Devoted 00:00:00 00:00:00 [id number] Medica l Group 2022-03-06 2022-03-06 [facility] 1.2.840.114 [id number] Univers 00:00:00 00:00:00 [facility] [id number] it y of [place] [id number] Derek as MEHRDAD?BLEA [phone] [address] OFFICE [facility] 2021-08-03 2021-08-03 [facility] [id number] Univers 14:15:00 14:15:00 [facility] 2021-07-24 2021-07-24 Nurse Nurse, Adc Surgery Faculty [facility] 1.2.840.114 [id number] Univers 14:46:56 15:05:55 Visit Jared Santana 350.1.13.1 0 ity jaelyn [id number] [phone] Il dical nal 188 [facility] 2021-07-24 2021-07-24 Outpatient R [facility] [id number] Univers 14:45:00 14:45:00 [facility] 2021-07-23 2021-07-23 Outpatient R [facility] [id number] Univers 13:00:00 13:00:00 [facility] 2021-07-16 2021-07-16 [facility] 1.2.840.114 [id number] Univers 14:02:48 15:23:39 Visit Jared Marino [id number] itmary [id number] [phone] Il dical nal 201 [facility] 2021-07-16 2021-07-16 [address] [facility] [id number] Univers 13:45:00 13:45:00 JARED [facility] 2021-07-12 2021-07-12 Office [facility] 1.2.840.114 [id number] Univers 14:07:32 16:05:01 Visit Samira Ball [id number] i ty jaelyn [place] [id number] Derek as Mehrdad?Blea [phone] Il dical [address] Office Building 2021-07-12 2021-07-12 [facility] [id number] Univers 14:00:00 14:00:[address] [facility] 2021-07-12 2021-07-12 Telephone Evelin [facility] 1.2.840.114 [id number] Univers 00:00:00 00:00:00 Guilherme [facility] 350.1.13.10 it y Evelio [place] [id number] Derek as Mehrdad?Blea [phone] Il seamus scruggs [address] [place] [address] Office Building 2021-07-06 2021-07-06 Outpatient R MISSY [facility] [id number] Univers 13:30:00 13:30:00 DEBRA ity of [facility] 2021-06-28 2021-06-29 Emergency [facility] 1.2.840.114 [id number] Univers 21:24:00 00:38:00 Paula Marino 350.1.13.10 ity [place].2.[place] [phone] [address] 2021-06-28 2021-06-29 [facility] 1.2.840.114 [id number] Univers 21:24:00 00:38:00 Paula Marino 350.1.13.10 ity of [place] [id number] [facility] [phone] [address] 2021-06-29 2021-06-29 [facility] 1.2.840.114 [id number] Univers 00:00:00 00:00:00 [facility] Health [id number] it y of [place] [id number] Derek as Professio [phone] Il diclaura duran [address] [place] [address] Office [facility] One 2021-06-29 2021-06-29 [facility] 1.2.840.114 [id number] Univers 00:00:00 00:00:00 Guilherme Health 350.1.13.10 it y of [place] [id number] Derek as Professio [phone] Il dical nal [address] [place] [address] Office [facility] One 2021-05-03 2021-05-03 [facility] 1.2.840.114 [id number] Univers 00:00:00 00:00:00 Guilherme Health 350.1.13.10 it y of [place] [id number] Derek as Professio [phone] Il dical nal [address] [place] [address] Office [facility] One 2021-04-17 2021-04-17 Office Jimdillon [facility] 1.2.840.114 [id number] Univers 10:33:28 10:48:28 Visit Guilherme Ball 350.1.13.10 it y of [place] 4.2.7.2.686 Derek as Professio [phone] [address] Office Building One 2021-04-17 2021-04-17 Outpatient R EVELIN [facility] [id number] Univers 10:45:00 10:45:[address] [facility] 2021-04-17 2021-04-17 Orders Doctor CARLITOS 1.2.840.114 [id number] Univers 00:00:00 00:00:00 Only Unassigned, EWA 350.1.13.10 ity of [place] [facility] 4.2.7.2.686 Derek as [phone] [facility] 009 [place] 2021-02-22 2021-02-22 Emergency Wilbert Lovell [facility] 1.2.840.114 [id number] Univers 18:11:00 22:14:00 Marci [place] 350.1.13.10 i ty of [place].2.[place] [phone] [facility] 084 [place] 2021-02-22 2021-02-22 Urgent Provider, [facility] 1.2.840.114 [id number] Univers 15:22:39 16:55:32 Care Samira Quinones 350.1.13.10 ity of [place] 4.2.7.2.686 Derek as Professio [phone] [address] Office Building One 2021-02-22 2021-02-22 Outpatient R STACIE [facility] [id number] Univers 15:20:00 15:20:[address] [facility] 2021-02-22 2021-02-22 Telephone [facility] 1.2.840.114 [id number] Univers 00:00:00 00:00:00 Guilherme Ball 350.1.13.10 it y of [place] 4.2.7.2.686 Derek as Professio [phone] [address] Office [facility] One 2021-02-22 2021-02-22 Orders Doctor CARLITOS 1.2.840.114 [id number] Univers 00:00:00 00:00:00 Only Unassigned, EWA 350.1.13.10 ity of [place] [facility] 4.2.7.2.686 Derek as [phone] [facility] 009 [place] 2021-02-20 2021-02-20 Telephone [facility] 1.2.840.114 [id number] Univers 00:00:00 00:00:00 [facility] 350.1.13.10 it y of [place] 4.2.7.2.686 Derek as Professio [phone] [address] One 2021-02-12 2021-02-12 Emergency [facility] 1.2.355.262 [id number] Univers 05:03:00 08:59:00 Chasity [place] 350.1.13.10 ity of [place] 4.2.7.2.686 [place] [facility] [phone] [facility] 084 [place] 2021-01-16 2021-01-16 Outpatient Rosi MAJOR [facility] [id number] Univers 13:15:00 13:15:[address] [facility] 2020-11-14 2020-11-14 Office [facility] 1.2.840.114 [id number] Univers 09:53:36 10:23:36 Visit [facility] 350.1.13.10 it y of [place] 4.2.7.2.686 Derek as Professio [phone] [address] Office [facility] 2020-11-14 2020-11-14 Outpatient R EVELIN [facility] [id number] Univers 10:00:00 10:00:[address] [facility] 2020-11-14 2020-11-14 Letter Doctor CARLITOS 1.2.840.114 [id number] Univers 00:00:00 00:00:00 (Out) Unassigned, EWA 350.1.13.10 ity of [place] [facility] 4.2.7.2.686 Derek as [phone] [facility] 044 [place] 2020-07-02 2020-07-02 Telephone Ayan [facility] 1.2.840.114 [id number] Univers 00:00:00 00:00:00 [facility] 350.1.13.10 it y of [place] 4.2.7.2.686 Derek as Professio [phone] [address] Office Building One 2020-06-08 2020-06-22 Inpatient 1 Enrique Phelps [facility] MED [id number] 22:36:00 14:25:00 Enrique Phelps [facility] 2020-05-27 2020-06-08 Hospital Maria T Bragamarley [facility] 1.2.840. 114 [id number] Univers 03:30:59 21:28:00 Encounter Angie Mathis 350.1.13.10 ity of [place] [id number] [facility] [phone] [facility] 081 [place] 2020-06-02 2020-06-02 Anesthesia Gonzalo Dalton [facility] 1.2.840.11 [id number] Univers 11:20:00 12:34:00 Carlitos Rivera 350.1.13.10 ity of [place] [id number] [facility] Surgical [phone] [address] 2020-05-27 2020-05-27 Emergency X [facility] ERT [id number] Univers 03:30:59 03:30:[address] [facility] 2020-05-26 2020-05-27 [facility] [id number] Memoria 20:33:19 03:17:00 r Sushil 05 l [facility] 2020-05-26 2020-05-27 Emergency nullFlavo [facility] [id number] Memoria 20:33:19 03:17:00 r [place] 05 l [facility] 2020-05-26 2020-05-27 [facility] [id number] Memoria 20:33:19 03:17:00 r [place] 05 l [facility] 2020-05-26 2020-05-26 Outpatient Alison Caicedo MHGHR MHGHR [id number] 15:33:19 22:17:00 [place] 2020-05-26 2020-05-26 Outpatient Alison Caicedo MHG[facility] M[facility]HR [id number] 15:33:19 22:17:00 K 2020-05-26 2020-05-26 Emergency E ALISON CAICEDO MHNW MHNW [id number] MHNW 15:33:00 22:17:00 2017-11-10 2017-11-11 [facility] [id number] Memoria 18:29:00 05:59:00 r [place] 03 [facility] 2017-11-10 2017-11-11 Outpatient [facility] [id number] Memoria 18:29:00 05:59:00 r [place] 03 [facility] 2017-11-10 2017-11-11 [facility]patient [facility] [id number] Memoria 18:29:00 05:59:00 r [place] 03 [facility] 2017-11-10 2017-11-10 Outpatient Prasarn, [facility] [id number] 12:29:00 23:59:00 Mason Marquez Pandora 2017-11-10 2017-11-10 Outpatient Prasarn, [facility] [id number] 12:29:00 23:59:00 Mason Marquez Pandora 2017-11-10 2017-11-10 Outpatient Prasarn, [facility] [facility] [id number] 12:29:00 23:59:00 Mason Marquez Pandora 2017-11-10 2017-11-10 Outpatient Prasarn, [facility] [id number] 12:29:00 23:59:00 Mason Marquez Pandora 2017-10-14 2017-10-14 [facility] [id number] Memoria 01:49:00 08:46:00 r Sushil 02 [facility] 2017-10-14 2017-10-14 [facility] [id number] Memoria 01:49:00 08:46:00 r Sushil 02 [facility] 2017-10-14 2017-10-14 [facility] [id number] Memoria 01:49:00 08:46:00 r Sushil 02 [facility] 2017-10-13 2017-10-14 Outpatient Hannah, [facility]SE MHSE [id number] 19:49:00 02:46:00 Rupa Ahmed 2017-10-13 2017-10-14 Outpatient Hannah, MHSE MHSE [id number] 19:49:00 02:46:00 Rupa Ahmed 2017-09-07 2017-09-07 [facility] [id number] Memoria 00:23:00 09:06:00 r Sushil 01 [facility] 2017-09-07 2017-09-07 [facility] [id number] Memoria 00:23:00 09:06:00 r Sushil 01 [facility] 2017-09-07 2017-09-07 [facility] [id number] Memoria 00:23:00 09:06:00 r Sushil 01 [facility] 2017-09-06 2017-09-07 Outpatient Roxy, MHSE MHSE [id number] 19:23:00 03:06:00 Jose Elias P 01 2017-09-06 2017-09-07 Outpatient Roxy, MHSE MHSE [id number] 19:23:00 03:06:00 Jose Elias P 01 2017-01-28 2017-01-31 [facility] [id number] Memoria 16:52:00 21:30:00 Outpatient r [place] 00 [facility] 2017-01-28 2017-01-31 [facility] [id number] Memoria 16:52:00 21:30:00 Outpatient r Sushil 00 [facility] 2017-01-28 2017-01-31 [facility] [id number] Memoria 16:52:00 21:30:00 Outpatient r [place] 00 [facility] 2017-01-28 2017-01-31 Outpatient Gina [facility] [id number] 11:52:00 16:30:00 Mason Nikunj Enrique 2017-01-28 2017-01-31 Outpatient Gina [facility] [id number] 11:52:00 16:30:00 Mason Nikunj Nunez 2016-10-10 2016-10-11 Outpt Diag [facility] [id number] Memoria 23:25:00 05:59:00 Services r Outpatient 00 l Imaging Sushil Acevedo 2016-10-10 2016-10-11 Outpt Diag nullFlavo [facility] [id number] Memoria 23:25:00 05:59:00 Services r Outpatient 00 l Imaging Sushil Chengland 2016-10-10 2016-10-11 Outpt Diag nullFlavo [facility] [id number] Memoria 23:25:00 05:59:00 Services r Outpatient 00 l Imaging Sushil Acevedo 2016-10-10 2016-10-10 Outpatient HulbertKeny [facility] [id number] 17:25:00 23:59:00 Ramin 00 2016-10-10 2016-10-10 Outpatient HulbertKeny [facility] [id number] 17:25:00 23:59:00 Ramin 00 Results Test Description Test Time Test Comments Results Result Comments Source TROPONIN I 2023-06-10 23:42:26 Test Item Value Reference Range Interpretation Comme nts TROPONIN I (test code = 6064129280) 0.107 ng/mL <=0.034 H AMINOR (test code = MAINOR) Reference (Normal) Range [...] biotin. Lab Interpretation (test code = Abnormal 14308-6) [facility] [id number] 18:51:28 Test Item Value Reference Range Interpretation Comments TROPONIN I (test code = 0.211 ng/mL <=0.034 H [id number]) MAINOR (test code = MAINOR) Reference (Normal) [...] biotin. Lab Interpretation Abnormal (test code = 56744-3) [facility]2023-08-08 17:49:16 Test Item Value Reference Range Interpretation Comments MAGNESIUM (test code = 5863936580) 2.3 mg/dL 1.7-2.4 Lab Interpretation (test code = Normal 70801-5) [facility] (NA, K, CL, CO2, GLUCOSE, BUN, CREATININE, CA)2023-06-10 17:48:56 Test Item Value Reference Range Interpretation Comments NA (test code = 133 mmol/L 135-145 L 1030938029) K (test code = 3.5 mmol/L 3.5-5.0 8333465891) CL (test code = 99 mmol/L 98-108 2413611108) CO2 TOTAL (test code = 25 mmol/L 23-31 3063276628) AGAP (test code = 9 2-16 4991004481) BUN (test code = 34 mg/dL 7-23 H 5522307176) GLUCOSE (test code = 95 mg/dL 70-110 2026689140) CREATININE (test code = 0.99 mg/dL 0.50-1.04 4106474494) CALCIUM (test code = 8.9 mg/dL 8.6-10.6 4352876641) eGFR (test code = 55.1 mL/min/1.73m2 7237031998) MAINOR (test code = MAINOR) Association of [...] tests). Lab Interpretation Abnormal (test code = 70303-5) [facility] WITH [id number] 17:40:50 Test Item Value Reference Range Interpretation Comments WBC (test code = 10.38 See_Comment [Automated 2535-2) message] The sy stem which generated this result transmitted reference range : 4.30 - 11.10 10*3/?L. The reference range was not used to interpret this result as normal/abnormal . RBC (test code = 4.29 See_Comment [Automated 090-8) message] The sy stem which generated this [...] RDW-SD (test code = 43.7 fL 39.0-49.9 83691-1) RDW-CV (test code = 13.3 % 12.0-15.5 788-0) PLT (test code = 315 See_Comment [Automated 777-3) message] The sy stem which generated this result transmitted reference range : 166 - 358 10*3/ ?L. The reference r pascual was not used to interpret this result as normal/abnormal . MPV (test code = 10.0 fL 9.5-12.9 14078-8) NRBC/100 WBC (test 0.0 See_Comment [Automat ed code = 2692078413) message] The system which generated this result transmitted reference range : 0.0 - 10.0 /100 WBCs. The refer ence range was not u sed to interpret th is result as normal/abnormal . NRBC x10^3 (test code See_Comment [Auto mated = 6853399128) message] The s ystem which generated this result transmitted reference range : 10*3/?L. The reference range was not used to interpret this result as normal/abnormal . GRAN MAT (NEUT) % 74.8 % (test code = 770-8) IMM GRAN % (test code 0.40 % = 4155594271) LYMPH % (test code = 16.8 % 736-9) MONO % (test code = 7.4 % 5905-5) EOS % (test code = 0.1 % 713-8) BASO % (test code = 0.5 % 706-2) GRAN MAT x10^3(ANC) 7.77 10*3/uL 1.88-7.09 H (test code = 3194285267) IMM GRAN x10^3 (test 0.04 10*3/uL 0.00-0.06 code = 8178167608) LYMPH x10^3 (test code 1.74 10*3/uL 1.32-3.29 = 731-0) MONO x10^3 (test code 0.77 10*3/uL 0.33-0.92 = 742-7) EOS x10^3 (test code = 0.03-0.39 L 711-2) BASO x10^3 (test code 0.05 10*3/uL 0.01-0.07 = 704-7) Lab Interpretation Abnormal (test code = 43164-1) [facility] [id number] 14:42:05 Test Item Value Reference Range Interpretation Comments TROPONIN I (test code = 0.170 ng/mL <=0.034 H 2988003550) MAINOR (test code = MAINOR) Reference (Normal) [...] biotin. Lab Interpretation Abnormal (test code = 94394-3) [facility]20[facility] 02:27:32 ALCOHOL<10mg/dL06/09/2023 9:27 PM [facility]<10 Jzwxkurp27-195 Toxic>100 Depression of [employer]>400 [facility] [id number] 02:25:44 Test Item Value Reference Range Interpretation Comments TROPONIN I (test code = 0.101 ng/mL <=0.034 H 1334807412) MAINOR (test code = MAINOR) Reference (Normal) [...] biotin. Lab Interpretation Abnormal (test code = 88292-9) [facility]. METABOLIC PANEL (15219)2023-06-10 02:14:42 Test Item Value Reference Range Interpretation Comments NA (test code = 136 mmol/L 135-145 5164695279) K (test code = 3.6 mmol/L 3.5-5.0 4582382880) CL (test code = 94 mmol/L 98-108 L 5247728846) CO2 TOTAL (test code = 26 mmol/L 23-31 8998896826) AGAP (test code = 16 2-16 3705679567) BUN (test code = 46 mg/dL 7-23 H 2974111075) GLUCOSE (test code = 103 mg/dL 70-110 5760738566) CREATININE (test code = 1.20 mg/dL 0.50-1.04 H 7001983785) TOTAL BILI (test code = 1.1 mg/dL 0.1-1.9 5532470231) CALCIUM (test code = 9.4 mg/dL 8.6-10.6 8172477172) T PROTEIN (test code = 8.1 g/dL 6.3-8.2 2984526995) ALBUMIN (test code = 4.6 g/dL 3.5-5.0 3608976548) ALK PHOS (test code = 113 U/L 34-122 2949363356) ALTv (test code = 20 U/L 5-35 2-6) AST(SGOT) (test code = 40 U/L 13-40 3455496976) eGFR (test code = 44.2 mL/min/1.73m2 2001785916) MAINOR (test code = MAINRO) Association of Glomerular Filtration Rate (GFR) and [...] tests). Lab Interpretation Abnormal (test code = 91902-9) [facility]IPASE20[facility] 02:14:22 Test Item Value Reference Range Interpretation Comments LIPASE (test code = 4033879987) 177 U/L 0-220 Lab Interpretation (test code = Normal 06022-4) [facility] WITH [id number] 02:11:20 Test Item Value Reference Range Interpretation Comments WBC (test code = 11.38 See_Comment H [Automated 8590-2) message] The sy stem which generated this result transmitted reference range : 4.30 - 11.10 10*3/?L. The reference range was not used to interpret this result as normal/abnormal . RBC (test code = 5.10 See_Comment [Automated 538-8) message] The sy stem which generated this [...] RDW-SD (test code = 42.2 fL 39.0-49.9 00881-7) RDW-CV (test code = 13.3 % 12.0-15.5 788-0) PLT (test code = 351 See_Comment [Automated 777-3) message] The sy stem which generated this result transmitted reference range : 166 - 358 10*3/ ?L. The reference r pascual was not used to interpret this result as normal/abnormal . MPV (test code = 10.0 fL 9.5-12.9 10125-4) NRBC/100 WBC (test 0.0 See_Comment [Automat ed code = 8245884250) message] The system which generated this result transmitted reference range : 0.0 - 10.0 /100 WBCs. The refer ence range was not u sed to interpret th is result as normal/abnormal . NRBC x10^3 (test code See_Comment [Auto mated = 8841111739) message] The s ystem which generated this result transmitted reference range : 10*3/?L. The reference range was not used to interpret this result as normal/abnormal . GRAN MAT (NEUT) % 79.4 % (test code = 770-8) IMM GRAN % (test code 0.40 % = 4636065463) LYMPH % (test code = 12.0 % 736-9) MONO % (test code = 7.7 % 5905-5) EOS % (test code = 0.1 % 713-8) BASO % (test code = 0.4 % 706-2) GRAN MAT x10^3(ANC) 9.03 10*3/uL 1.88-7.09 H (test code = 2517950078) IMM GRAN x10^3 (test 0.05 10*3/uL 0.00-0.06 code = 0742280761) LYMPH x10^3 (test code 1.37 10*3/uL 1.32-3.29 = 731-0) MONO x10^3 (test code 0.88 10*3/uL 0.33-0.92 = 742-7) EOS x10^3 (test code = 0.03-0.39 L 711-2) BASO x10^3 (test code 0.04 10*3/uL 0.01-0.07 = 704-7) Lab Interpretation Abnormal (test code = 12461-8) [facility] Count without Kebc3896-82-57 06:41:29 Test Item Value Reference Range Interpretation [...] 0 % N Complete Blood Count without Cbax5766-95-30 06:50:28 Test Item Value Reference Range Interpretation [...] = IPF) 0 % N Basic Metabolic Qipuz1231-86-83 05:38:52 Test Item Value Reference Range Interpretation [...] = Lipemia) 0 mg/dL 8-11 Basic Metabolic Zmqzo4529-67-06 05:38:52 Test Item Value Reference Range Interpretation [...] = 0 mg/dL 8-11 Lipemia) Basic Metabolic Lwkhe4049-83-55 05:38:52 Test Item Value Reference Range Interpretation [...] ag e have not been validated by [facility] MDRD study and should be interpreted wit [...] ag e have not been validated by [facility] MDRD study and should be interpreted wit [...] code = 0 mg/dL 8-11 Lipemia) RPR Emvblvmtbjl3721-19-23 12:10:55 Test Item Value Reference Range Interpretation Comments RPR Qual (test code = RPR Qual) Non-Reactive Non-Reactive Reactive Control (test code = Reactive Reactive Control) Weak Reactive Control (test Weak Reactive code = Weak Reactive Control) Non-Reactive Control (test code Non-Reactive = Non-Reactive Control) Lot # (test code = Lot #) [id number] N Expiration Dt (test code = 08-02-2021 N Expiration Dt) POC Uefovge6892-06-51 07:55:27 Test Item Value Reference Range Interpretation Comments Glucose POC (test 138 mg/dL 70-115 H If you con juvenile court judge your code = Glucose POC) patient critically ill, the Dory-Accu Check Infrom II meter should not be used for Glucose determination. Draw a venous Glucose and send to the main Lab for analysis. Thyroid Stimulating Opccsiz0342-68-67 05:45:32 Test Item Value Reference Range Interpretation Comments TSH (test code = TSH) 2.076 mcIU/mL 0.550-4.780 Hemoglobin K4u7357-02-34 05:45:31ErrorDiabetic >=6.5 %Prediabetes 5.7-6.4 %Normal <5.7 %Lipid Nvmei3894-73-67 05:45:31 Test Item Value Reference Range Interpretation [...] calculation is LDL/HDL Ratio=L DL Calc/HDL Chol Comprehensive Metabolic Woivw8664-51-53 12:00:19 Test Item Value Reference Range Interpretation [...] = Lipemia) 0 g/dL 1-2 Comprehensive Metabolic Tuhfl5850-95-57 12:00:19 Test Item Value Reference Range Interpretation [...] = 0 g/dL 1-2 Lipemia) Comprehensive Metabolic Nffsc4924-55-96 12:00:19 Test Item Value Reference Range Interpretation [...] ag e have not been validated by e MDRD study and should be interpreted [...] not provided, and t he patient is femjuan manuel le, multiply by 0.7 42. Results for pat ients <18 years of ag e have not been validated by e MDRD study and should be interpreted [...] code = 0 g/dL 1-2 Lipemia) IG Nxene6492-70-10 11:44:13 Test Item Value Reference Range Interpretation Comments IG (test code = IG) 0.3 % 0.0-5.0 IG Abs (test code = IG Abs) 0 x10 N Complete Blood Count with Kopegyuurpoc7684-88-94 11:44:12 Test Item Value Reference Range Interpretation [...] code = IPF) 0 % N Automated Ukvhamyhylry5469-89-42 11:44:12 Test Item Value Reference Range Interpretation Comments Neutro Auto (test code = Neutro 82.9 % 36.0-70.0 H Auto) Lymph Auto (test code = Lymph Auto) 9.5 % 12.0-44.0 L [place] Auto (test code = [place] Auto) 5.2 % 0.0-11.0 Eos, Auto (test code = Eos, Auto) 1.6 % 0.0-7.0 Basophil Auto (test code = Basophil 0.5 % 0.0-2.0 Auto) Neutro Absolute (test code = Neutro 12.5 x10 1.6-7.4 H Absolute) Lymph Absolute (test code = Lymph 1.44 x10 .50-4.60 Absolute) [place] Absolute (test code = [place] .78 x10 .00-1.20 Absolute) Eos Absolute (test code = Eos 0.24 x10 0.00-0.74 Absolute) Baso Absolute (test code = Baso 0.07 x10 0.00-0.21 Absolute) [id number] 21:26:00 Test Item Value Reference Range Interpretation Comments Eosinophils (test code = 0.1 See_Comment [A utomated message] The Eosinophils) system which ge nerated this result tra nsmitted reference range : <=4.0. The reference r pascual was not used to int erpret this result as normal/abnormal . [facility] 21:26:00 Test Item Value Reference Range Interpretation Comments Basophils (test code = 0.3 See_Comment [Aut omated message] The Basophils) system which ge nerated this result tra nsmitted reference range : <=1.0. The reference r pascual was not used to int erpret this result as normal/abnormal . [facility] HospitalYek[facility]ilOEGQOJKBSU2166-13-59 21:26:00 Test Item Value Reference Range Interpretation Comments Neutrophils # (test code = Neutrophils 10.9 1.5-8.1 #) [facility]ax[facility]CCHQFIHFQV0065-36-60 21:26:00 Test Item Value Reference Range Interpretation Comments Lymphocytes # (test code = Lymphocytes 0.6 1.0-5.5 #) [facility] HospitalSfuuimeGEINHKCFSJ7219-67-93 21:26:00 Test Item Value Reference Range Interpretation Comments Monocytes # (test code 0.6 See_Comment [Aut omated message] The = Monocytes #) system which generated this result tra nsmitted reference range : <=0.8. The reference r pascual was not used to int erpret this result as normal/abnormal . [facility] HospitalEqzzchxVFMAQGWNUN8234-97-36 21:26:00 Test Item Value Reference Range Interpretation Comments Macrocyte (test code = 1+ *ABN*(05/26/20 Macrocyte) 4:26 PM) [place] [id number] 21:26:00 Test Item Value Reference Range Interpretation Comments Acetaminoph Lvl (test code = 3 08-22 Acetaminoph Lvl) [place] 36592020-07-24 21:26:00 Test Item Value Reference Range Interpretation Comments Ethanol Lvl (test code = Ethanol Lvl) 7 [place] [id number] 21:26:00 Test Item Value Reference Range Interpretation Comments Etoh (%) (test code = Etoh (%)) 0.007 [place] 36592020-07-24 21:26:00 Test Item Value Reference Range Interpretation Comments Salicylate Lvl (test no gt See_Comment [Autom ated message] The code = Salicylate Lvl) syste m which generated this result tra nsmitted reference range : <=30.0. The reference r pascual was not used to int erpret this result as normal/abnormal . [facility] [id number] 21:26:00 Test Item Value Reference Range Interpretation Comments Glucose Lvl (test code = Glucose Lvl) 88 70-99 [facility] [id number] 21:26:00 Test Item Value Reference Range Interpretation Comments BUN (test code = BUN) 9 7-22 [facility] [id number] 21:26:00 Test Item Value Reference Range Interpretation Comments Creatinine Lvl (test code = Creatinine 1.05 0.50-1.40 Lvl) [facility] [id number] 21:26:00 Test Item Value Reference Range Interpretation Comments Sodium Lvl (test code = Sodium Lvl) 140 135-145 [facility] [id number] 21:26:00 Test Item Value Reference Range Interpretation Comments Potassium Lvl (test code = Potassium 3.5 3.5-5.1 Lvl) [facility] [id number] 21:26:00 Test Item Value Reference Range Interpretation Comments Chloride Lvl (test code = Chloride Lvl) 103 95-109 [facility] [id number] 21:26:00 Test Item Value Reference Range Interpretation Comments CO2 (test code = CO2) 29 24-32 [facility] [id number] 21:26:00 Test Item Value Reference Range Interpretation Comments Calcium Lvl (test code = Calcium Lvl) 8.0 8.5-10.5 [facility] [id number] 21:26:00 Test Item Value Reference Range Interpretation Comments Total Protein (test code = Total 5.6 6.4-8.4 Protein) [facility] [id number] 21:26:00 Test Item Value Reference Range Interpretation Comments Albumin Lvl (test code = Albumin Lvl) 2.4 3.5-5.0 [facility] [id number] 21:26:00 Test Item Value Reference Range Interpretation Comments ALT (test code = ALT) 39 See_Comment [Auto mated message] The system which ge nerated this result transmit tracy reference range : <=65. The reference range was not used to interpr et this result as ramón l/abnormal. [facility] [id number] 21:26:00 Test Item Value Reference Range Interpretation Comments AST (test code = AST) 61 See_Comment [Auto mated message] The system which ge nerated this result transmit tracy reference range : <=37. The reference range was not used to interpr et this result as ramón l/abnormal. [facility] [id number] 21:26:00 Test Item Value Reference Range Interpretation Comments Alk Phos (test code = Alk Phos) 110 39-136 [facility] [id number] 21:26:00 Test Item Value Reference Range Interpretation Comments Bili Total (test code = Bili Total) 0.9 0.2-1.3 [facility] [id number] 21:26:00 Test Item Value Reference Range Interpretation Comments AGAP (test code = AGAP) 11.5 10.0-20.0 [facility] [id number] 21:26:00 Test Item Value Reference Range Interpretation Comments B/C Ratio (test code = B/C Ratio) 9 1 6-25 [facility] [id number] 21:26:00 Test Item Value Reference Range Interpretation Comments Globulin (test code = Globulin) 3.2 2.7-4.2 [facility] [id number] 21:26:00 Test Item Value Reference Range Interpretation Comments A/G Ratio (test code = A/G Ratio) 0.8 1 0.7-1.6 [facility] [id number] 21:26:00 Test Item Value Reference Range Interpretation Comments eGFR (test code = eGFR) 54 [facility] [id number] 21:26:00 Test Item Value Reference Range Interpretation Comments U Amph Scr (test code Negative *NA*(05/26/20 = U Amph Scr) 4:26 PM) [facility] [id number] 21:26:00 Test Item Value Reference Range Interpretation Comments U Bruna Scr (test code Negative *NA*(05/26/20 = U Bruna Scr) 4:26 PM) [facility]villeDR[facility] [id number] 21:26:00 Test Item Value Reference Range Interpretation Comments U Benzodiaz Scr (test Positive *ABN*(05/26/20 code = U Benzodiaz Scr) 4:26 PM) [facility] [id number] 21:26:00 Test Item Value Reference Range Interpretation Comments U Cocaine Scr (test Negative *NA*(05/26/20 code = U Cocaine Scr) 4:26 PM) [facility] [id number] 21:26:00 Test Item Value Reference Range Interpretation Comments U Cannab Scr (test Negative *NA*(05/26/20 code = U Cannab Scr) 4:26 PM) [facility] [id number] 21:26:00 Test Item Value Reference Range Interpretation Comments U Opiate Scr (test Positive *ABN*(05/26/20 code = U Opiate Scr) 4:26 PM) [facility] [id number] 21:26:00 Test Item Value Reference Range Interpretation Comments U Phencyclidine Scr (test Negative code = U Phencyclidine *NA*(05/26/20 4:26 Scr) PM) [facility] [id number] 21:26:00 Test Item Value Reference Range Interpretation Comments UDS Note (test code = See Note (05/26/20 4:26 UDS Note) PM) [facility] HospitalEzusuixDGRXYIAVFP1845-84-06 21:26:00 Test Item Value Reference Range Interpretation Comments WBC (test code = WBC) 12.1 3.7-10.4 [facility] NortheastUhdtzimDXRHBQZRQU7528-14-03 21:26:00 Test Item Value Reference Range Interpretation Comments RBC (test code = RBC) 3.29 4.20-5.40 [facility] GreenvilleNpmfsfoAJUTJUSTUQ9313-46-77 21:26:00 Test Item Value Reference Range Interpretation Comments Hgb (test code = Hgb) 11.1 12.0-16.0 [facility] GreenvilleMccpjurTRNSIDJVGP7012-52-37 21:26:00 Test Item Value Reference Range Interpretation Comments Hct (test code = Hct) 32.7 36.0-48.0 [facility] NortheastWcrucnfKAQMUUPOJA1096-33-09 21:26:00 Test Item Value Reference Range Interpretation Comments MCV (test code = MCV) 99.5 80.0-98.0 [facility] GreenvilleXohdajhBOTLHSGFPI6379-61-82 21:26:00 Test Item Value Reference Range Interpretation Comments MCH (test code = MCH) 33.9 pg 27.0-31.0 [facility] NortheastGlajlgsFQJTJZSPHU8248-98-35 21:26:00 Test Item Value Reference Range Interpretation Comments MCHC (test code = MCHC) 34.1 32.0-36.0 [facility] GreenvilleZmlbgovGQMXHYRPXY1143-08-47 21:26:00 Test Item Value Reference Range Interpretation Comments RDW (test code = RDW) 13.1 11.5-14.5 [facility] GreenvilleVfqgxesJZGABRVUOE2148-80-22 21:26:00 Test Item Value Reference Range Interpretation Comments Platelet (test code = Platelet) 320 133-450 [facility] GreenvilleZuvpxjfHOGUJLGGOD6497-45-96 21:26:00 Test Item Value Reference Range Interpretation Comments MPV (test code = MPV) 7.3 7.4-10.[address] [facility] HospitalVfjqbclCXPLPISEQL1322-95-03 21:26:00 Test Item Value Reference Range Interpretation Comments Plt Morph (test code = Normal (05/26/20 4:26 Plt Morph) PM) [facility]xwcntLBECNWHZVC9854-74-58 21:26:00 Test Item Value Reference Range Interpretation Comments Segs (test code = Segs) 90.0 45.0-75.[address] [facility]AjjgawoRVBFJMSOSF7477-15-69 21:26:00 Test Item Value Reference Range Interpretation Comments Lymphocytes (test code = Lymphocytes) 4.7 20.0-40.[address] [facility]DzjbmouQURXUHBIJU1463-72-45 21:26:00 Test Item Value Reference Range Interpretation Comments Monocytes (test code = Monocytes) 4.9 2.0-12.[address] [facility]FrddhwqPHEZRDGDTC0512-45-78 21:26:00 Test Item Value Reference Range Interpretation Comments Eosinophils (test code = 0.1 See_Comment [A utomated message] The Eosinophils) system which ge nerated this result tra nsmitted reference range : <=4.0. The reference r pascual was not used to int erpret this result as normal/abnormal . [facility]ml[facility]ZEOPWVSWM6045[facility] 21:26:00 Test Item Value Reference Range Interpretation Comments Basophils (test code = 0.3 See_Comment [Aut omated message] The Basophils) system which ge nerated this result tra nsmitted reference range : <=1.0. The reference r pascual was not used to int erpret this result as normal/abnormal . [facility]dpmrdpUPMYHTIQIA4586-[facility]-50 21:26:00 Test Item Value Reference Range Interpretation Comments Neutrophils # (test code = Neutrophils 10.9 1.5-8.1 #) [facility]QtdhbytZIWOUBPLLU1368-05-56 21:26:00 Test Item Value Reference Range Interpretation Comments Lymphocytes # (test code = Lymphocytes 0.6 1.0-5.5 #) [facility] HospitalHzngigrJLAJZIBQZI9924-78-86 21:26:00 Test Item Value Reference Range Interpretation Comments Monocytes # (test code 0.6 See_Comment [Aut omated message] The = Monocytes #) system which generated this result tra nsmitted reference range : <=0.8. The reference r pascual was not used to int erpret this result as normal/abnormal . [facility] HospitalBurxrteKDMNZIIAIM7080-32-82 21:26:00 Test Item Value Reference Range Interpretation Comments Macrocyte (test code = 1+ *ABN*(05/26/20 Macrocyte) 4:26 PM) [place] 146410-07-24 21:26:00 Test Item Value Reference Range Interpretation Comments Acetaminoph Lvl (test code = 3 10-20 Acetaminoph Lvl) [place] 146410-07-24 21:26:00 Test Item Value Reference Range Interpretation Comments Ethanol Lvl (test code = Ethanol Lvl) 7 [place] [id number] 21:26:00 Test Item Value Reference Range Interpretation Comments Etoh (%) (test code = Etoh (%)) 0.007 [place] 146410-07-24 21:26:00 Test Item Value Reference Range Interpretation Comments Salicylate Lvl (test no gt See_Comment [Autom ated message] The code = Salicylate Lvl) syste m which generated this result tra nsmitted reference range : <=30.0. The reference r pascual was not used to int erpret this result as normal/abnormal . [facility] [id number] 21:26:00 Test Item Value Reference Range Interpretation Comments Glucose Lvl (test code = Glucose Lvl) 88 70-99 [facility] [id number] 21:26:00 Test Item Value Reference Range Interpretation Comments BUN (test code = BUN) 9 7-22 [facility] GroupN[facility] [id number] 21:26:00 Test Item Value Reference Range Interpretation Comments Creatinine Lvl (test code = Creatinine 1.05 0.50-1.40 Lvl) [facility] GroupNATH[facility] [place] [id number] 21:26:00 Test Item Value Reference Range Interpretation Comments Sodium Lvl (test code = Sodium Lvl) 140 135-145 [facility] [id number] 21:26:00 Test Item Value Reference Range Interpretation Comments Potassium Lvl (test code = Potassium 3.5 3.5-5.1 Lvl) [facility] [id number] 21:26:00 Test Item Value Reference Range Interpretation Comments Chloride Lvl (test code = Chloride Lvl) 103 95-109 [facility] [id number] 21:26:00 Test Item Value Reference Range Interpretation Comments CO2 (test code = CO2) 29 24-32 [facility] [id number] 21:26:00 Test Item Value Reference Range Interpretation Comments Calcium Lvl (test code = Calcium Lvl) 8.0 8.5-10.5 [facility] [id number] 21:26:00 Test Item Value Reference Range Interpretation Comments Total Protein (test code = Total 5.6 6.4-8.4 Protein) [place] [id number] 21:26:00 Test Item Value Reference Range Interpretation Comments Albumin Lvl (test code = Albumin Lvl) 2.4 3.5-5.0 [facility] [id number] 21:26:00 Test Item Value Reference Range Interpretation Comments ALT (test code = ALT) 39 See_Comment [Auto mated message] The system which ge nerated this result transmit tracy reference range : <=65. The reference range was not used to interpr et this result as ramón l/abnormal. [facility] [id number] 21:26:00 Test Item Value Reference Range Interpretation Comments AST (test code = AST) 61 See_Comment [Auto mated message] The system which ge nerated this result transmit tracy reference range : <=37. The reference range was not used to interpr et this result as ramón l/abnormal. [facility] [id number] 21:26:00 Test Item Value Reference Range Interpretation Comments Alk Phos (test code = Alk Phos) 110 39-136 [facility] [id number] 21:26:00 Test Item Value Reference Range Interpretation Comments Bili Total (test code = Bili Total) 0.9 0.2-1.3 [facility] [id number] 21:26:00 Test Item Value Reference Range Interpretation Comments AGAP (test code = AGAP) 11.5 10.0-20.0 [facility] [id number] 21:26:00 Test Item Value Reference Range Interpretation Comments B/C Ratio (test code = B/C Ratio) 9 1 6-25 [facility] [id number] 21:26:00 Test Item Value Reference Range Interpretation Comments Globulin (test code = Globulin) 3.2 2.7-4.2 [facility] [id number] 21:26:00 Test Item Value Reference Range Interpretation Comments A/G Ratio (test code = A/G Ratio) 0.8 1 0.7-1.6 [facility] [id number] 21:26:00 Test Item Value Reference Range Interpretation Comments eGFR (test code = eGFR) 54 [facility] [id number] 21:26:00 Test Item Value Reference Range Interpretation Comments U Amph Scr (test code Negative *NA*(05/26/20 = U Amph Scr) 4:26 PM) [facility] [id number] 21:26:00 Test Item Value Reference Range Interpretation Comments U Bruna Scr (test code Negative *NA*(05/26/20 = U Bruna Scr) 4:26 PM) [facility] [id number] 21:26:00 Test Item Value Reference Range Interpretation Comments U Benzodiaz Scr (test Positive *ABN*(05/26/20 code = U Benzodiaz Scr) 4:26 PM) [facility] [id number] 21:26:00 Test Item Value Reference Range Interpretation Comments U Cocaine Scr (test Negative *NA*(05/26/20 code = U Cocaine Scr) 4:26 PM) [facility] [id number] 21:26:00 Test Item Value Reference Range Interpretation Comments U Cannab Scr (test Negative *NA*(05/26/20 code = U Cannab Scr) 4:26 PM) [facility] [id number] 21:26:00 Test Item Value Reference Range Interpretation Comments U Opiate Scr (test Positive *ABN*(05/26/20 code = U Opiate Scr) 4:26 PM) [facility] [id number] 21:26:00 Test Item Value Reference Range Interpretation Comments U Phencyclidine Scr (test Negative code = U Phencyclidine *NA*(05/26/20 4:26 Scr) PM) [facility] [id number] 21:26:00 Test Item Value Reference Range Interpretation Comments UDS Note (test code = See Note (05/26/20 4:26 UDS Note) PM) [facility] NortheastZrpaqhdGCVJRPQOXN1009-29-99 21:26:00 Test Item Value Reference Range Interpretation Comments WBC (test code = WBC) 12.1 3.7-10.4 [facility] NortheastZslcyqqEQOHRYJYXZ8681-88-76 21:26:00 Test Item Value Reference Range Interpretation Comments RBC (test code = RBC) 3.29 4.20-5.[address] [facility]EzdykcfDJHQYBNGOL2275-66-21 21:26:00 Test Item Value Reference Range Interpretation Comments Hgb (test code = Hgb) 11.1 12.0-16.0 [place] 991440-07-24 21:26:00 Test Item Value Reference Range Interpretation Comments Hct (test code = Hct) 32.7 36.0-48.[address] [facility]YqngqxlTLBDOLZPHB1433-57-80 21:26:00 Test Item Value Reference Range Interpretation Comments MCV (test code = MCV) 99.5 80.0-98.0 [place] 991440-07-24 21:26:00 Test Item Value Reference Range Interpretation Comments MCH (test code = MCH) 33.9 pg 27.0-31.0 [place] 991440-07-24 21:26:00 Test Item Value Reference Range Interpretation Comments MCHC (test code = MCHC) 34.1 32.0-36.[address] [facility]FozekyoCGVECQEJNL8239-37-34 21:26:00 Test Item Value Reference Range Interpretation Comments RDW (test code = RDW) 13.1 11.5-14.[address] [id number] 21:26:00 Test Item Value Reference Range Interpretation Comments Platelet (test code = Platelet) 320 133-[address] [facility] HospitalVxvrtqvLFWREGRQDQ5923-60-07 21:26:00 Test Item Value Reference Range Interpretation Comments MPV (test code = MPV) 7.3 7.4-10.4 [place] 991440-07-24 21:26:00 Test Item Value Reference Range Interpretation Comments Plt Morph (test code = Normal (05/26/20 4:26 Plt Morph) PM) [facility] HospitalTslobsnXSWTRQYPTH7161-01-57 21:26:00 Test Item Value Reference Range Interpretation Comments Segs (test code = Segs) 90.0 45.0-75.0 [place] 991440-07-24 21:26:00 Test Item Value Reference Range Interpretation Comments Lymphocytes (test code = Lymphocytes) 4.7 20.0-40.0 [place] 991440-07-24 21:26:00 Test Item Value Reference Range Interpretation Comments Monocytes (test code = Monocytes) 4.9 2.0-12.[address] [facility]ClsdxmeZXCEYZVRDA5401-43-56 21:26:00 Test Item Value Reference Range Interpretation Comments Eosinophils (test code = 0.1 See_Comment [A utomated message] The Eosinophils) system which ge nerated this result tra nsmitted reference range : <=4.0. The reference r pascual was not used to int erpret this result as normal/abnormal . [facility] HospitalDoocmzzXCKCEWMVMV8092-81-30 21:26:00 Test Item Value Reference Range Interpretation Comments Basophils (test code = 0.3 See_Comment [Aut omated message] The Basophils) system which ge nerated this result tra nsmitted reference range : <=1.0. The reference r pascual was not used to int erpret this result as normal/abnormal . [facility] HospitalFoeixdiIKKYSIQNVS9709-98-64 21:26:00 Test Item Value Reference Range Interpretation Comments Neutrophils # (test code = Neutrophils 10.9 1.5-8.1 #) [facility] Hos[id number] 21:26:00 Test Item Value Reference Range Interpretation Comments Lymphocytes # (test code = Lymphocytes 0.6 1.0-5.5 #) [facility] HospitalNrmwfyrGANISUPVFA1998-10-16 21:26:00 Test Item Value Reference Range Interpretation Comments Monocytes # (test code 0.6 See_Comment [Aut omated message] The = Monocytes #) system which generated this result tra nsmitted reference range : <=0.8. The reference r pascual was not used to int erpret this result as normal/abnormal . [facility] HospitalIhazzoiVOTPLINZNI1161-03-94 21:26:00 Test Item Value Reference Range Interpretation Comments Macrocyte (test code = 1+ *ABN*(05/26/20 Macrocyte) 4:26 PM) [facility] SpringsZrdvgdrBSMBZZOIVJ1327-26-21 21:26:00 Test Item Value Reference Range Interpretation Comments Acetaminoph Lvl (test code = 3 08-22 Acetaminoph Lvl) [place] [id number] 21:26:00 Test Item Value Reference Range Interpretation Comments Ethanol Lvl (test code = Ethanol Lvl) 7 [place] [id number] 21:26:00 Test Item Value Reference Range Interpretation Comments Etoh (%) (test code = Etoh (%)) 0.007 [facility]villeIkxfoiuLDLHQVDPHF0614-94-50 21:26:00 Test Item Value Reference Range Interpretation Comments Salicylate Lvl (test no gt See_Comment [Autom ated message] The code = Salicylate Lvl) syste m which generated this result tra nsmitted reference range : <=30.0. The reference r pascual was not used to int erpret this result as normal/abnormal . [facility] [id number] 21:26:00 Test Item Value Reference Range Interpretation Comments Glucose Lvl (test code = Glucose Lvl) 88 70-99 [facility]2020-07-24 21:26:00 Test Item Value Reference Range Interpretation Comments BUN (test code = BUN) 9 7-22 [facility]2020-07-24 21:26:00 Test Item Value Reference Range Interpretation Comments Creatinine Lvl (test code = Creatinine 1.05 0.50-1.40 Lvl) [facility] GroupON LICENSE [id number] 21:26:00 Test Item Value Reference Range Interpretation Comments Sodium Lvl (test code = Sodium Lvl) 140 135-145 [facility]2020-07-24 21:26:00 Test Item Value Reference Range Interpretation Comments Potassium Lvl (test code = Potassium 3.5 3.5-5.1 Lvl) [facility] [id number] 21:26:00 Test Item Value Reference Range Interpretation Comments Chloride Lvl (test code = Chloride Lvl) 103 95-109 [facility] [id number] 21:26:00 Test Item Value Reference Range Interpretation Comments CO2 (test code = CO2) 29 24-32 [place] 818820-07-24 21:26:00 Test Item Value Reference Range Interpretation Comments Calcium Lvl (test code = Calcium Lvl) 8.0 8.5-10.5 [facility]2020-07-24 21:26:00 Test Item Value Reference Range Interpretation Comments Total Protein (test code = Total 5.6 6.4-8.4 Protein) [facility] GroupON LICENSE [id number] 21:26:00 Test Item Value Reference Range Interpretation Comments Albumin Lvl (test code = Albumin Lvl) 2.4 3.5-5.0 [facility]2020-07-24 21:26:00 Test Item Value Reference Range Interpretation Comments ALT (test code = ALT) 39 See_Comment [Auto mated message] The system which ge nerated this result transmit tracy reference range : <=65. The reference range was not used to interpr et this result as ramón l/abnormal. [facility]2020-07-24 21:26:00 Test Item Value Reference Range Interpretation Comments AST (test code = AST) 61 See_Comment [Auto mated message] The system which ge nerated this result transmit tracy reference range : <=37. The reference range was not used to interpr et this result as ramón l/abnormal. [facility]2020-07-24 21:26:00 Test Item Value Reference Range Interpretation Comments Alk Phos (test code = Alk Phos) 110 39-136 [facility]2020-07-24 21:26:00 Test Item Value Reference Range Interpretation Comments Bili Total (test code = Bili Total) 0.9 0.2-1.3 [facility]2020-07-24 21:26:00 Test Item Value Reference Range Interpretation Comments AGAP (test code = AGAP) 11.5 10.0-20.0 [facility]2020-07-24 21:26:00 Test Item Value Reference Range Interpretation Comments B/C Ratio (test code = B/C Ratio) 9 1 6-25 [facility]2020-07-24 21:26:00 Test Item Value Reference Range Interpretation Comments Globulin (test code = Globulin) 3.2 2.7-4.2 [facility]2020-07-24 21:26:00 Test Item Value Reference Range Interpretation Comments A/G Ratio (test code = A/G Ratio) 0.8 1 0.7-1.6 [facility]0-07-24 21:26:00 Test Item Value Reference Range Interpretation Comments eGFR (test code = eGFR) 54 [facility] [employer]2020-07-24 21:26:00 Test Item Value Reference Range Interpretation Comments U Amph Scr (test code Negative *NA*(05/26/20 = U Amph Scr) 4:26 PM) [employer] [id number] 21:26:00 Test Item Value Reference Range Interpretation Comments U Bruna Scr (test code Negative *NA*(05/26/20 = U Bruna Scr) 4:26 PM) [facility] ZUVDKH5220-08-23 21:26:00 Test Item Value Reference Range Interpretation Comments U Benzodiaz Scr (test Positive *ABN*(05/26/20 code = U Benzodiaz Scr) 4:26 PM) [facility] [id number] 21:26:00 Test Item Value Reference Range Interpretation Comments U Cocaine Scr (test Negative *NA*(05/26/20 code = U Cocaine Scr) 4:26 PM) [facility] [id number] 21:26:00 Test Item Value Reference Range Interpretation Comments U Cannab Scr (test Negative *NA*(05/26/20 code = U Cannab Scr) 4:26 PM) [facility] [id number] 21:26:00 Test Item Value Reference Range Interpretation Comments U Opiate Scr (test Positive *ABN*(05/26/20 code = U Opiate Scr) 4:26 PM) [facility] [id number] 21:26:00 Test Item Value Reference Range Interpretation Comments U Phencyclidine Scr (test Negative code = U Phencyclidine *NA*(05/26/20 4:26 Scr) PM) [facility] [id number] 21:26:00 Test Item Value Reference Range Interpretation Comments UDS Note (test code = See Note (05/26/20 4:26 UDS Note) PM) [facility] NortheastPmkvlwoQDZASYRQSV1328-25-19 21:26:00 Test Item Value Reference Range Interpretation Comments WBC (test code = WBC) 12.1 3.7-10.4 [facility] NortheastHuhijwsPBXGPLDGQJ0240-58-34 21:26:00 Test Item Value Reference Range Interpretation Comments RBC (test code = RBC) 3.29 4.20-5.40 [facility] JtzuuhxYXOVCCHGIH1967-22-18 21:26:00 Test Item Value Reference Range Interpretation Comments Hgb (test code = Hgb) 11.1 12.0-16.0 [facility] NortheastHzsaqrdONBFKZEIIS5884-41-28 21:26:00 Test Item Value Reference Range Interpretation Comments Hct (test code = Hct) 32.7 36.0-48.0 [facility] DpekpuhOLIUGKHKEK5703-44-88 21:26:00 Test Item Value Reference Range Interpretation Comments MCV (test code = MCV) 99.5 80.0-98.[address] [facility]DhjukukPQWZGHQLBJ7900-47-85 21:26:00 Test Item Value Reference Range Interpretation Comments MCH (test code = MCH) 33.9 pg 27.0-31.[address] [facility]YeudxmwUBSLXCVVET8709-54-87 21:26:00 Test Item Value Reference Range Interpretation Comments MCHC (test code = MCHC) 34.1 32.0-36.[address] [facility]NfszdolPXCLHHBZYF1360-44-33 21:26:00 Test Item Value Reference Range Interpretation Comments RDW (test code = RDW) 13.1 11.5-14.[address] [facility]DhvexqqRLTMEUTWWW5767-07-07 21:26:00 Test Item Value Reference Range Interpretation Comments Platelet (test code = Platelet) 320 133-[address] HospitalUzqstiaWEGNSARXTB5642-56-04 21:26:00 Test Item Value Reference Range Interpretation Comments MPV (test code = MPV) 7.3 7.4-10.[address] [facility]SxjbusoJTJFSKJGUX0220-26-63 21:26:00 Test Item Value Reference Range Interpretation Comments Plt Morph (test code = Normal (05/26/20 4:26 Plt Morph) PM) [facility] HospitalQacjzwoZZCHCXNKLO2197-17-25 21:26:00 Test Item Value Reference Range Interpretation Comments Segs (test code = Segs) 90.0 45.0-75.[address] [facility]CdoskbfVJXNKHWGKU7076-91-31 21:26:00 Test Item Value Reference Range Interpretation Comments Lymphocytes (test code = Lymphocytes) 4.7 20.0-40.[address] [facility]SyunhyrUSRJUQZJWU6047-55-21 21:26:00 Test Item Value Reference Range Interpretation Comments Monocytes (test code = Monocytes) 4.9 2.0-12.0 [place] 991440-07-24 21:26:00 Test Item Value Reference Range Interpretation Comments Eosinophils (test code = 0.1 See_Comment [A utomated message] The Eosinophils) system which ge nerated this result tra nsmitted reference range : <=4.0. The reference r pascual was not used to int erpret this result as normal/abnormal . [facility] HospitalOxshqnyOKQWGVYMGA2540-69-76 21:26:00 Test Item Value Reference Range Interpretation Comments Basophils (test code = 0.3 See_Comment [Aut omated message] The Basophils) system which ge nerated this result tra nsmitted reference range : <=1.0. The reference r pascual was not used to int erpret this result as normal/abnormal . [facility] HospitalWzqoknhTASSVKRPXC5657-67-84 21:26:00 Test Item Value Reference Range Interpretation Comments Neutrophils # (test code = Neutrophils 10.9 1.5-8.1 #) [facility] HospitalLeficdkGUXMVXSLVO0489-57-33 21:26:00 Test Item Value Reference Range Interpretation Comments Lymphocytes # (test code = Lymphocytes 0.6 1.0-5.5 #) [facility] HospitalXjszfitUETNAUSWKW1214-76-97 21:26:00 Test Item Value Reference Range Interpretation Comments Monocytes # (test code 0.6 See_Comment [Aut omated message] The = Monocytes #) system which generated this result tra nsmitted reference range : <=0.8. The reference r pascual was not used to int erpret this result as normal/abnormal . [facility] HospitalYblpowxCDHGKVQHVM7817-15-53 21:26:00 Test Item Value Reference Range Interpretation Comments Macrocyte (test code = 1+ *ABN*(05/26/20 Macrocyte) 4:26 PM) [facility]villeVqptzhzUIGLNJSCJQ4602-27-56 21:26:00 Test Item Value Reference Range Interpretation Comments Acetaminoph Lvl (test code = 3 10-20 Acetaminoph Lvl) [place] [address]2020-07-24 21:26:00 Test Item Value Reference Range Interpretation Comments Ethanol Lvl (test code = Ethanol Lvl) 7 [facility] SpringsPxmexgcBPIGINKWZL9666-86-68 21:26:00 Test Item Value Reference Range Interpretation Comments Etoh (%) (test code = Etoh (%)) 0.007 [place] [address]2020-07-24 21:26:00 Test Item Value Reference Range Interpretation Comments Salicylate Lvl (test no gt See_Comment [Autom ated message] The code = Salicylate Lvl) syste m which generated this result tra nsmitted reference range : <=30.0. The reference r pascual was not used to int erpret this result as normal/abnormal . [facility] [id number] 21:26:00 Test Item Value Reference Range Interpretation Comments Glucose Lvl (test code = Glucose Lvl) 88 70-99 [facility]2020-07-24 21:26:00 Test Item Value Reference Range Interpretation Comments BUN (test code = BUN) 9 7-22 [place] 818820-07-24 21:26:00 Test Item Value Reference Range Interpretation Comments Creatinine Lvl (test code = Creatinine 1.05 0.50-1.40 Lvl) [place] 818820-07-24 21:26:00 Test Item Value Reference Range Interpretation Comments Sodium Lvl (test code = Sodium Lvl) 140 135-145 [facility]2020-07-24 21:26:00 Test Item Value Reference Range Interpretation Comments Potassium Lvl (test code = Potassium 3.5 3.5-5.1 Lvl) [facility]2020-07-24 21:26:00 Test Item Value Reference Range Interpretation Comments Chloride Lvl (test code = Chloride Lvl) 103 95-109 [facility]2020-07-24 21:26:00 Test Item Value Reference Range Interpretation Comments CO2 (test code = CO2) 29 24-32 [place] 818820-07-24 21:26:00 Test Item Value Reference Range Interpretation Comments Calcium Lvl (test code = Calcium Lvl) 8.0 8.5-10.5 [facility]2020-07-24 21:26:00 Test Item Value Reference Range Interpretation Comments Total Protein (test code = Total 5.6 6.4-8.4 Protein) [facility]2020-07-24 21:26:00 Test Item Value Reference Range Interpretation Comments Albumin Lvl (test code = Albumin Lvl) 2.4 3.5-5.0 [facility]2020-07-24 21:26:00 Test Item Value Reference Range Interpretation Comments ALT (test code = ALT) 39 See_Comment [Auto mated message] The system which ge nerated this result transmit tracy reference range : <=65. The reference range was not used to interpr et this result as ramón l/abnormal. [facility]2020-07-24 21:26:00 Test Item Value Reference Range Interpretation Comments AST (test code = AST) 61 See_Comment [Auto mated message] The system which ge nerated this result transmit tracy reference range : <=37. The reference range was not used to interpr et this result as ramón l/abnormal. [facility] [id number] 21:26:00 Test Item Value Reference Range Interpretation Comments Alk Phos (test code = Alk Phos) 110 39-136 [facility] [id number] 21:26:00 Test Item Value Reference Range Interpretation Comments Bili Total (test code = Bili Total) 0.9 0.2-1.3 [facility] [id number] 21:26:00 Test Item Value Reference Range Interpretation Comments AGAP (test code = AGAP) 11.5 10.0-20.0 [facility] [id number] 21:26:00 Test Item Value Reference Range Interpretation Comments B/C Ratio (test code = B/C Ratio) 9 1 6-25 [facility] [id number] 21:26:00 Test Item Value Reference Range Interpretation Comments Globulin (test code = Globulin) 3.2 2.7-4.2 [facility] [id number] 21:26:00 Test Item Value Reference Range Interpretation Comments A/G Ratio (test code = A/G Ratio) 0.8 1 0.7-1.6 [facility] [id number] 21:26:00 Test Item Value Reference Range Interpretation Comments eGFR (test code = eGFR) 54 [facility] [id number] 21:26:00 Test Item Value Reference Range Interpretation Comments U Amph Scr (test code Negative *NA*(05/26/20 = U Amph Scr) 4:26 PM) [facility] [id number] 21:26:00 Test Item Value Reference Range Interpretation Comments U Bruna Scr (test code Negative *NA*(05/26/20 = U Bruna Scr) 4:26 PM) [facility] [id number] 21:26:00 Test Item Value Reference Range Interpretation Comments U Benzodiaz Scr (test Positive *ABN*(05/26/20 code = U Benzodiaz Scr) 4:26 PM) [facility] [id number] 21:26:00 Test Item Value Reference Range Interpretation Comments U Cocaine Scr (test Negative *NA*(05/26/20 code = U Cocaine Scr) 4:26 PM) [facility] [id number] 21:26:00 Test Item Value Reference Range Interpretation Comments U Cannab Scr (test Negative *NA*(05/26/20 code = U Cannab Scr) 4:26 PM) [facility] [id number] 21:26:00 Test Item Value Reference Range Interpretation Comments U Opiate Scr (test Positive *ABN*(05/26/20 code = U Opiate Scr) 4:26 PM) [facility] [id number] 21:26:00 Test Item Value Reference Range Interpretation Comments U Phencyclidine Scr (test Negative code = U Phencyclidine *NA*(05/26/20 4:26 Scr) PM) [facility] [id number] 21:26:00 Test Item Value Reference Range Interpretation Comments UDS Note (test code = See Note (05/26/20 4:26 UDS Note) PM) [facility]villeDvyjkfuTZGEECXBVZ4854-03-13 21:26:00 Test Item Value Reference Range Interpretation Comments WBC (test code = WBC) 12.1 3.7-10.4 [facility] GreenvilleWaanniqDASXVRJUBD3993-47-72 21:26:00 Test Item Value Reference Range Interpretation Comments RBC (test code = RBC) 3.29 4.20-5.40 [facility] Greenvil[id number] 21:26:00 Test Item Value Reference Range Interpretation Comments Hgb (test code = Hgb) 11.1 12.0-16.0 [facility] Gre[id number] 21:26:00 Test Item Value Reference Range Interpretation Comments Hct (test code = Hct) 32.7 36.0-48.0 [facility] NortheastTtlorffXMKWHHCAAY8598-03-48 21:26:00 Test Item Value Reference Range Interpretation Comments MCV (test code = MCV) 99.5 80.0-98.0 [facility] NortheastIeftvwoJUJSUFOOBF1836-06-39 21:26:00 Test Item Value Reference Range Interpretation Comments MCH (test code = MCH) 33.9 pg 27.0-31.0 [facility] NortheastVanbplqPSBMOEGDBM9462-53-28 21:26:00 Test Item Value Reference Range Interpretation Comments MCHC (test code = MCHC) 34.1 32.0-36.[address] [facility]JbqmxrsFDXBLJWVFR2891-58-29 21:26:00 Test Item Value Reference Range Interpretation Comments RDW (test code = RDW) 13.1 11.5-14.[address] [id number] 21:26:00 Test Item Value Reference Range Interpretation Comments Platelet (test code = Platelet) 320 133-[address] [facility] HospitalQmqcyiqESAMFPIMMO7200-07-97 21:26:00 Test Item Value Reference Range Interpretation Comments MPV (test code = MPV) 7.3 7.4-10.4 [place] [id number] 21:26:00 Test Item Value Reference Range Interpretation Comments Plt Morph (test code = Normal (05/26/20 4:26 Plt Morph) PM) [facility] HospitalRwsavseCLWAPEFYYU1518-57-38 21:26:00 Test Item Value Reference Range Interpretation Comments Segs (test code = Segs) 90.0 45.0-75.[address] [facility] HospitalNavlqxpVFNIVIDMTY0893-84-27 21:26:00 Test Item Value Reference Range Interpretation Comments Lymphocytes (test code = Lymphocytes) 4.7 20.0-40.[address] [facility] HospitalYphjcftSSWXZSGGZR0529-50-07 21:26:00 Test Item Value Reference Range Interpretation Comments Monocytes (test code = Monocytes) 4.9 2.0-12.[address] [facility] HospitalTlaywqcHUBYPCWBSH7431-49-25 21:26:00 Test Item Value Reference Range Interpretation Comments Eosinophils (test code = 0.1 See_Comment [A utomated message] The Eosinophils) system which ge nerated this result tra nsmitted reference range : <=4.0. The reference r pascual was not used to int erpret this result as normal/abnormal . [facility] HospitalIyzsmktPTSFRQTGUZ2275-29-92 21:26:00 Test Item Value Reference Range Interpretation Comments Basophils (test code = 0.3 See_Comment [Aut omated message] The Basophils) system which ge nerated this result tra nsmitted reference range : <=1.0. The reference r pascual was not used to int erpret this result as normal/abnormal . [facility] HospitalXpsooacITUWYZENFM9318-05-92 21:26:00 Test Item Value Reference Range Interpretation Comments Neutrophils # (test code = Neutrophils 10.9 1.5-8.1 #) [facility] HospitalFwmrlulZHJHIRTMPA0203-15-81 21:26:00 Test Item Value Reference Range Interpretation Comments Lymphocytes # (test code = Lymphocytes 0.6 1.0-5.5 #) [facility] H[id number] 21:26:00 Test Item Value Reference Range Interpretation Comments Monocytes # (test code 0.6 See_Comment [Aut omated message] The = Monocytes #) system which generated this result tra nsmitted reference range : <=0.8. The reference r pascual was not used to int erpret this result as normal/abnormal . [facility] HospitalJusprrpAQTJDEOMFY0869-12-34 21:26:00 Test Item Value Reference Range Interpretation Comments Macrocyte (test code = 1+ *ABN*(05/26/20 Macrocyte) 4:26 PM) [facility] SpringsIcdvvgaFFFIOVHOMJ9077-09-20 21:26:00 Test Item Value Reference Range Interpretation Comments Acetaminoph Lvl (test code = 3 -20 Acetaminoph Lvl) [place] [id number] 21:26:00 Test Item Value Reference Range Interpretation Comments Ethanol Lvl (test code = Ethanol Lvl) 7 [place] [id number] 21:26:00 Test Item Value Reference Range Interpretation Comments Etoh (%) (test code = Etoh (%)) 0.007 [place] [id number] 21:26:00 Test Item Value Reference Range Interpretation Comments Salicylate Lvl (test no gt See_Comment [Autom ated message] The code = Salicylate Lvl) syste m which generated this result tra nsmitted reference range : <=30.0. The reference r pascual was not used to int erpret this result as normal/abnormal . [facility] [id number] 21:26:00 Test Item Value Reference Range Interpretation Comments Glucose Lvl (test code = Glucose Lvl) 88 70-99 [facility] [id number] 21:26:00 Test Item Value Reference Range Interpretation Comments BUN (test code = BUN) 9 7-22 [facility] [id number] 21:26:00 Test Item Value Reference Range Interpretation Comments Creatinine Lvl (test code = Creatinine 1.05 0.50-1.40 Lvl) [facility]2020-07-24 21:26:00 Test Item Value Reference Range Interpretation Comments Sodium Lvl (test code = Sodium Lvl) 140 135-145 [place] [id number] 21:26:00 Test Item Value Reference Range Interpretation Comments Potassium Lvl (test code = Potassium 3.5 3.5-5.1 Lvl) [place] [id number] 21:26:00 Test Item Value Reference Range Interpretation Comments Chloride Lvl (test code = Chloride Lvl) 103 95-109 [facility] [id number] 21:26:00 Test Item Value Reference Range Interpretation Comments CO2 (test code = CO2) 29 24-32 [facility] [employer] [employer] [id number] 21:26:00 Test Item Value Reference Range Interpretation Comments Calcium Lvl (test code = Calcium Lvl) 8.0 8.5-10.5 [place] [id number] 21:26:00 Test Item Value Reference Range Interpretation Comments Total Protein (test code = Total 5.6 6.4-8.4 Protein) [place] [id number] 21:26:00 Test Item Value Reference Range Interpretation Comments Albumin Lvl (test code = Albumin Lvl) 2.4 3.5-5.0 [facility] [id number] 21:26:00 Test Item Value Reference Range Interpretation Comments ALT (test code = ALT) 39 See_Comment [Auto mated message] The system which ge nerated this result transmit tracy reference range : <=65. The reference range was not used to interpr et this result as ramón l/abnormal. [facility] [id number] 21:26:00 Test Item Value Reference Range Interpretation Comments AST (test code = AST) 61 See_Comment [Auto mated message] The system which ge nerated this result transmit tracy reference range : <=37. The reference range was not used to interpr et this result as ramón l/abnormal. [facility] [id number] 21:26:00 Test Item Value Reference Range Interpretation Comments Alk Phos (test code = Alk Phos) 110 39-136 [facility] [id number] 21:26:00 Test Item Value Reference Range Interpretation Comments Bili Total (test code = Bili Total) 0.9 0.2-1.3 [facility] [employer] [id number] 21:26:00 Test Item Value Reference Range Interpretation Comments AGAP (test code = AGAP) 11.5 10.0-20.0 [facility] [id number] 21:26:00 Test Item Value Reference Range Interpretation Comments B/C Ratio (test code = B/C Ratio) 9 1 6-25 [facility] [id number] 21:26:00 Test Item Value Reference Range Interpretation Comments Globulin (test code = Globulin) 3.2 2.7-4.2 [facility] [employer] [id number] 21:26:00 Test Item Value Reference Range Interpretation Comments A/G Ratio (test code = A/G Ratio) 0.8 1 0.7-1.6 [facility] [id number] 21:26:00 Test Item Value Reference Range Interpretation Comments eGFR (test code = eGFR) 54 [facility] [id number] 21:26:00 Test Item Value Reference Range Interpretation Comments U Amph Scr (test code Negative *NA*(05/26/20 = U Amph Scr) 4:26 PM) [facility] [id number] 21:26:00 Test Item Value Reference Range Interpretation Comments U Bruna Scr (test code Negative *NA*(05/26/20 = U Bruna Scr) 4:26 PM) [facility] [id number] 21:26:00 Test Item Value Reference Range Interpretation Comments U Benzodiaz Scr (test Positive *ABN*(05/26/20 code = U Benzodiaz Scr) 4:26 PM) [facility] [id number] 21:26:00 Test Item Value Reference Range Interpretation Comments U Cocaine Scr (test Negative *NA*(05/26/20 code = U Cocaine Scr) 4:26 PM) [facility] [id number] 21:26:00 Test Item Value Reference Range Interpretation Comments U Cannab Scr (test Negative *NA*(05/26/20 code = U Cannab Scr) 4:26 PM) [facility] [id number] 21:26:00 Test Item Value Reference Range Interpretation Comments U Opiate Scr (test Positive *ABN*(05/26/20 code = U Opiate Scr) 4:26 PM) [facility] [id number] 21:26:00 Test Item Value Reference Range Interpretation Comments U Phencyclidine Scr (test Negative code = U Phencyclidine *NA*(05/26/20 4:26 Scr) PM) [facility] [id number] 21:26:00 Test Item Value Reference Range Interpretation Comments UDS Note (test code = See Note (05/26/20 4:26 UDS Note) PM) [facility] Nort[id number] 21:26:00 Test Item Value Reference Range Interpretation Comments WBC (test code = WBC) 12.1 3.7-10.4 [facility] NortheastChgimueFYFSGREMPX7661-67-28 21:26:00 Test Item Value Reference Range Interpretation Comments RBC (test code = RBC) 3.29 4.20-5.40 [facility] NortheastYozwugzTNSZCVQLRY1062-61-40 21:26:00 Test Item Value Reference Range Interpretation Comments Hgb (test code = Hgb) 11.1 12.0-16.0 [facility] NortheastZtftfevBHYCVDQFJM5938-01-97 21:26:00 Test Item Value Reference Range Interpretation Comments Hct (test code = Hct) 32.7 36.0-48.0 [facility] NortheastEtwpulyYMJPOJODYA1596-64-25 21:26:00 Test Item Value Reference Range Interpretation Comments MCV (test code = MCV) 99.5 80.0-98.0 [facility] NortheastNkrfbepOSAOTFWNYI5140-12-70 21:26:00 Test Item Value Reference Range Interpretation Comments MCH (test code = MCH) 33.9 pg 27.0-31.0 [facility] NortheastWwyhasuEOUATZHUVN7616-41-31 21:26:00 Test Item Value Reference Range Interpretation Comments MCHC (test code = MCHC) 34.1 32.0-36.0 [facility] NortheastFxoeqkhDBUZBPYAMI4057-48-23 21:26:00 Test Item Value Reference Range Interpretation Comments RDW (test code = RDW) 13.1 11.5-14.5 [facility] NortheastWzseohaJMRFEZQZAD9527-81-77 21:26:00 Test Item Value Reference Range Interpretation Comments Platelet (test code = Platelet) 320 133-450 [facility] NortheastPdjgbvoAORTUFQFEV4219-36-69 21:26:00 Test Item Value Reference Range Interpretation Comments MPV (test code = MPV) 7.3 7.4-10.[address] [facility]KcwdzbxOMXQXWGPQM1398-28-61 21:26:00 Test Item Value Reference Range Interpretation Comments Plt Morph (test code = Normal (05/26/20 4:26 Plt Morph) PM) [facility] HospitalFsrrysvIGAIADBAKM8110-13-16 21:26:00 Test Item Value Reference Range Interpretation Comments Segs (test code = Segs) 90.0 45.0-75.[address] [facility] HospitalGjawjcsZUBLDZPYOZ5722-45-27 21:26:00 Test Item Value Reference Range Interpretation Comments Lymphocytes (test code = Lymphocytes) 4.7 20.0-40.0 [place] [id number] 21:26:00 Test Item Value Reference Range Interpretation Comments Monocytes (test code = Monocytes) 4.9 2.0-12.[address] [facility] HospitalVdlaaxiSGTGYLNOVD3053-77-22 21:26:00 Test Item Value Reference Range Interpretation Comments Eosinophils (test code = 0.1 See_Comment [A utomated message] The Eosinophils) system which ge nerated this result tra nsmitted reference range : <=4.0. The reference r pascual was not used to int erpret this result as normal/abnormal . [facility] HospitalXlzemudVQEQEYMGKV0030-98-24 21:26:00 Test Item Value Reference Range Interpretation Comments Basophils (test code = 0.3 See_Comment [Aut omated message] The Basophils) system which ge nerated this result tra nsmitted reference range : <=1.0. The reference r pascual was not used to int erpret this result as normal/abnormal . [facility] HospitalNxkusyyJNUSQHJAQB0484-70-02 21:26:00 Test Item Value Reference Range Interpretation Comments Neutrophils # (test code = Neutrophils 10.9 1.5-8.1 #) [facility] HospitalUzqxheuPEGUNHJBCJ9228-97-37 21:26:00 Test Item Value Reference Range Interpretation Comments Lymphocytes # (test code = Lymphocytes 0.6 1.0-5.5 #) [facility] HospitalEkcbsfyDIEUDXTYDE9819-03-81 21:26:00 Test Item Value Reference Range Interpretation Comments Monocytes # (test code 0.6 See_Comment [Aut omated message] The = Monocytes #) system which generated this result tra nsmitted reference range : <=0.8. The reference r pascual was not used to int erpret this result as normal/abnormal . [facility] HospitalCbyttksLEOEKMZZEN8720-18-12 21:26:00 Test Item Value Reference Range Interpretation Comments Macrocyte (test code = 1+ *ABN*(05/26/20 Macrocyte) 4:26 PM) [place] [id number] 21:26:00 Test Item Value Reference Range Interpretation Comments Acetaminoph Lvl (test code = 3 08-22 Acetaminoph Lvl) [place] [id number] 21:26:00 Test Item Value Reference Range Interpretation Comments Ethanol Lvl (test code = Ethanol Lvl) 7 [place] [id number] 21:26:00 Test Item Value Reference Range Interpretation Comments Etoh (%) (test code = Etoh (%)) 0.007 [place] [id number] 21:26:00 Test Item Value Reference Range Interpretation Comments Salicylate Lvl (test no gt See_Comment [Autom ated message] The code = Salicylate Lvl) syste m which generated this result tra nsmitted reference range : <=30.0. The reference r pascual was not used to int erpret this result as normal/abnormal . [facility] [id number] 21:26:00 Test Item Value Reference Range Interpretation Comments Glucose Lvl (test code = Glucose Lvl) 88 70-99 [place] [id number] 21:26:00 Test Item Value Reference Range Interpretation Comments BUN (test code = BUN) 9 7- [place] [id number] 21:26:00 Test Item Value Reference Range Interpretation Comments Creatinine Lvl (test code = Creatinine 1.05 0.50-1.40 Lvl) [facility]2020-07-24 21:26:00 Test Item Value Reference Range Interpretation Comments Sodium Lvl (test code = Sodium Lvl) 140 135-145 [facility] [id number] 21:26:00 Test Item Value Reference Range Interpretation Comments Potassium Lvl (test code = Potassium 3.5 3.5-5.1 Lvl) [facility] [id number] 21:26:00 Test Item Value Reference Range Interpretation Comments Chloride Lvl (test code = Chloride Lvl) 103 95-109 [facility] [id number] 21:26:00 Test Item Value Reference Range Interpretation Comments CO2 (test code = CO2) 29 24-32 [facility] [id number] 21:26:00 Test Item Value Reference Range Interpretation Comments Calcium Lvl (test code = Calcium Lvl) 8.0 8.5-10.5 [facility] [id number] 21:26:00 Test Item Value Reference Range Interpretation Comments Total Protein (test code = Total 5.6 6.4-8.4 Protein) [facility] [id number] 21:26:00 Test Item Value Reference Range Interpretation Comments Albumin Lvl (test code = Albumin Lvl) 2.4 3.5-5.0 [facility] [id number] 21:26:00 Test Item Value Reference Range Interpretation Comments ALT (test code = ALT) 39 See_Comment [Auto mated message] The system which ge nerated this result transmit tracy reference range : <=65. The reference range was not used to interpr et this result as ramón l/abnormal. [facility] [id number] 21:26:00 Test Item Value Reference Range Interpretation Comments AST (test code = AST) 61 See_Comment [Auto mated message] The system which ge nerated this result transmit tracy reference range : <=37. The reference range was not used to interpr et this result as ramón l/abnormal. [facility] [id number] 21:26:00 Test Item Value Reference Range Interpretation Comments Alk Phos (test code = Alk Phos) 110 39-136 [facility] [id number] 21:26:00 Test Item Value Reference Range Interpretation Comments Bili Total (test code = Bili Total) 0.9 0.2-1.3 [facility] [id number] 21:26:00 Test Item Value Reference Range Interpretation Comments AGAP (test code = AGAP) 11.5 10.0-20.0 [facility] [id number] 21:26:00 Test Item Value Reference Range Interpretation Comments B/C Ratio (test code = B/C Ratio) 9 1 6-25 [facility] [id number] 21:26:00 Test Item Value Reference Range Interpretation Comments Globulin (test code = Globulin) 3.2 2.7-4.2 [facility]roGenexannCHEM [id number] 21:26:00 Test Item Value Reference Range Interpretation Comments A/G Ratio (test code = A/G Ratio) 0.8 1 0.7-1.6 [facility] [id number] 21:26:00 Test Item Value Reference Range Interpretation Comments eGFR (test code = eGFR) 54 [facility] [id number] 21:26:00 Test Item Value Reference Range Interpretation Comments U Amph Scr (test code Negative *NA*(05/26/20 = U Amph Scr) 4:26 PM) [facility] [id number] 21:26:00 Test Item Value Reference Range Interpretation Comments U Bruna Scr (test code Negative *NA*(05/26/20 = U Bruna Scr) 4:26 PM) [facility] [id number] 21:26:00 Test Item Value Reference Range Interpretation Comments U Benzodiaz Scr (test Positive *ABN*(05/26/20 code = U Benzodiaz Scr) 4:26 PM) [facility] [id number] 21:26:00 Test Item Value Reference Range Interpretation Comments U Cocaine Scr (test Negative *NA*(05/26/20 code = U Cocaine Scr) 4:26 PM) [facility] [id number] 21:26:00 Test Item Value Reference Range Interpretation Comments U Cannab Scr (test Negative *NA*(05/26/20 code = U Cannab Scr) 4:26 PM) [facility] [id number] 21:26:00 Test Item Value Reference Range Interpretation Comments U Opiate Scr (test Positive *ABN*(05/26/20 code = U Opiate Scr) 4:26 PM) [facility] [id number] 21:26:00 Test Item Value Reference Range Interpretation Comments U Phencyclidine Scr (test Negative code = U Phencyclidine *NA*(05/26/20 4:26 Scr) PM) [facility] [id number] 21:26:00 Test Item Value Reference Range Interpretation Comments UDS Note (test code = See Note (05/26/20 4:26 UDS Note) PM) [id number] 21:26:00 Test Item Value Reference Range Interpretation Comments WBC (test code = WBC) 12.1 3.7-10.[address] [facility]YmrwgujFOKYLUECHY2588-12-04 21:26:00 Test Item Value Reference Range Interpretation Comments RBC (test code = RBC) 3.29 4.20-5.40 [place] 991440-07-24 21:26:00 Test Item Value Reference Range Interpretation Comments Hgb (test code = Hgb) 11.1 12.0-16.0 [place] 991440-07-24 21:26:00 Test Item Value Reference Range Interpretation Comments Hct (test code = Hct) 32.7 36.0-48.0 [place] 991440-07-24 21:26:00 Test Item Value Reference Range Interpretation Comments MCV (test code = MCV) 99.5 80.0-98.0 [place] 991440-07-24 21:26:00 Test Item Value Reference Range Interpretation Comments MCH (test code = MCH) 33.9 pg 27.0-31.[address] [facility]DqastjkCHVOPKCLWI2754-03-37 21:26:00 Test Item Value Reference Range Interpretation Comments MCHC (test code = MCHC) 34.1 32.0-36.[address] [facility] HospitalMkmizioMPZVGBCJDM9210-36-06 21:26:00 Test Item Value Reference Range Interpretation Comments RDW (test code = RDW) 13.1 11.5-14.[address] [facility] Ho[id number] 21:26:00 Test Item Value Reference Range Interpretation Comments Platelet (test code = Platelet) 320 133-[address] [facility] HospitalEgubkhaPFOANAWHIV9804-22-21 21:26:00 Test Item Value Reference Range Interpretation Comments MPV (test code = MPV) 7.3 7.4-10.4 [place] 991440-07-24 21:26:00 Test Item Value Reference Range Interpretation Comments Plt Morph (test code = Normal (05/26/20 4:26 Plt Morph) PM) [facility] HospitalFtzgnibRMHPOKOWMF5156-21-79 21:26:00 Test Item Value Reference Range Interpretation Comments Segs (test code = Segs) 90.0 45.0-75.[address] [facility] HospitalDxvfebmQVWOEZPYKV4079-59-68 21:26:00 Test Item Value Reference Range Interpretation Comments Lymphocytes (test code = Lymphocytes) 4.7 20.0-40.[address] [facility] HospitalIvwuqieBBNGYDGYDN7949-83-62 21:26:00 Test Item Value Reference Range Interpretation Comments Monocytes (test code = Monocytes) 4.9 2.0-12.[address] [facility] HospitalWmxcpcoJIAQGDGFPR0713-60-37 21:26:00 Test Item Value Reference Range Interpretation Comments Eosinophils (test code = 0.1 See_Comment [A utomated message] The Eosinophils) system which ge nerated this result tra nsmitted reference range : <=4.0. The reference r pascual was not used to int erpret this result as normal/abnormal . [facility] [facility]EXQSZZQYQX8870[facility]95-03 21:26:00 Test Item Value Reference Range Interpretation Comments Basophils (test code = 0.3 See_Comment [Aut omated message] The Basophils) system which ge nerated this result tra nsmitted reference range : <=1.0. The reference r pascual was not used to int erpret this result as normal/abnormal . [facility]KaakjfmAOJTRZNMAX3520-00-38 21:26:00 Test Item Value Reference Range Interpretation Comments Neutrophils # (test code = Neutrophils 10.9 1.5-8.1 #) [facility] HospitalMffjoomUXHZBEDXHY4982-57-87 21:26:00 Test Item Value Reference Range Interpretation Comments Lymphocytes # (test code = Lymphocytes 0.6 1.0-5.5 #) [facility] HospitalIpncphiAXWHASESCJ4763-90-34 21:26:00 Test Item Value Reference Range Interpretation Comments Monocytes # (test code 0.6 See_Comment [Aut omated message] The = Monocytes #) system which generated this result tra nsmitted reference range : <=0.8. The reference r pascual was not used to int erpret this result as normal/abnormal . [facility] HospitalZskerquBFQVQZMFYX5261-53-70 21:26:00 Test Item Value Reference Range Interpretation Comments Macrocyte (test code = 1+ *ABN*(05/26/20 Macrocyte) 4:26 PM) [place] [id number] 21:26:00 Test Item Value Reference Range Interpretation Comments Acetaminoph Lvl (test code = 3 - Acetaminoph Lvl) [place] [address]2020-07-24 21:26:00 Test Item Value Reference Range Interpretation Comments Ethanol Lvl (test code = Ethanol Lvl) 7 [place] [address]2020-07-24 21:26:00 Test Item Value Reference Range Interpretation Comments Etoh (%) (test code = Etoh (%)) 0.007 [place] [address]2020-07-24 21:26:00 Test Item Value Reference Range Interpretation Comments Salicylate Lvl (test no gt See_Comment [Autom ated message] The code = Salicylate Lvl) syste m which generated this result tra nsmitted reference range : <=30.0. The reference r pascual was not used to int erpret this result as normal/abnormal . [facility] [id number] 21:26:00 Test Item Value Reference Range Interpretation Comments Glucose Lvl (test code = Glucose Lvl) 88 70-99 [facility] [id number] 21:26:00 Test Item Value Reference Range Interpretation Comments BUN (test code = BUN) 9 7-22 [facility] [id number] 21:26:00 Test Item Value Reference Range Interpretation Comments Creatinine Lvl (test code = Creatinine 1.05 0.50-1.40 Lvl) [facility] [id number] 21:26:00 Test Item Value Reference Range Interpretation Comments Sodium Lvl (test code = Sodium Lvl) 140 135-145 [facility] [id number] 21:26:00 Test Item Value Reference Range Interpretation Comments Potassium Lvl (test code = Potassium 3.5 3.5-5.1 Lvl) [facility] [id number] 21:26:00 Test Item Value Reference Range Interpretation Comments Chloride Lvl (test code = Chloride Lvl) 103 95-109 [facility] [id number] 21:26:00 Test Item Value Reference Range Interpretation Comments CO2 (test code = CO2) 29 -32 [facility] [id number] 21:26:00 Test Item Value Reference Range Interpretation Comments Calcium Lvl (test code = Calcium Lvl) 8.0 8.5-10.5 [facility] [id number] 21:26:00 Test Item Value Reference Range Interpretation Comments Total Protein (test code = Total 5.6 6.4-8.4 Protein) [facility] [id number] 21:26:00 Test Item Value Reference Range Interpretation Comments Albumin Lvl (test code = Albumin Lvl) 2.4 3.5-5.0 [facility] [id number] 21:26:00 Test Item Value Reference Range Interpretation Comments ALT (test code = ALT) 39 See_Comment [Auto mated message] The system which ge nerated this result transmit tracy reference range : <=65. The reference range was not used to interpr et this result as ramón l/abnormal. [facility] [id number] 21:26:00 Test Item Value Reference Range Interpretation Comments AST (test code = AST) 61 See_Comment [Auto mated message] The system which ge nerated this result transmit tracy reference range : <=37. The reference range was not used to interpr et this result as ramón l/abnormal. [facility] [id number] 21:26:00 Test Item Value Reference Range Interpretation Comments Alk Phos (test code = Alk Phos) 110 39-136 [facility] [id number] 21:26:00 Test Item Value Reference Range Interpretation Comments Bili Total (test code = Bili Total) 0.9 0.2-1.3 [facility] [id number] 21:26:00 Test Item Value Reference Range Interpretation Comments AGAP (test code = AGAP) 11.5 10.0-20.0 [facility] [id number] 21:26:00 Test Item Value Reference Range Interpretation Comments B/C Ratio (test code = B/C Ratio) 9 1 6-25 [facility] [id number] 21:26:00 Test Item Value Reference Range Interpretation Comments Globulin (test code = Globulin) 3.2 2.7-4.2 [facility] [id number] 21:26:00 Test Item Value Reference Range Interpretation Comments A/G Ratio (test code = A/G Ratio) 0.8 1 0.7-1.6 [facility] [id number] 21:26:00 Test Item Value Reference Range Interpretation Comments eGFR (test code = eGFR) 54 [facility] [id number] 21:26:00 Test Item Value Reference Range Interpretation Comments U Amph Scr (test code Negative *NA*(05/26/20 = U Amph Scr) 4:26 PM) [facility] [id number] 21:26:00 Test Item Value Reference Range Interpretation Comments U Bruna Scr (test code Negative *NA*(05/26/20 = U Bruna Scr) 4:26 PM) [facility] [id number] 21:26:00 Test Item Value Reference Range Interpretation Comments U Benzodiaz Scr (test Positive *ABN*(05/26/20 code = U Benzodiaz Scr) 4:26 PM) [facility] [id number] 21:26:00 Test Item Value Reference Range Interpretation Comments U Cocaine Scr (test Negative *NA*(05/26/20 code = U Cocaine Scr) 4:26 PM) [facility] [id number] 21:26:00 Test Item Value Reference Range Interpretation Comments U Cannab Scr (test Negative *NA*(05/26/20 code = U Cannab Scr) 4:26 PM) [facility] [id number] 21:26:00 Test Item Value Reference Range Interpretation Comments U Opiate Scr (test Positive *ABN*(05/26/20 code = U Opiate Scr) 4:26 PM) [facility] [id number] 21:26:00 Test Item Value Reference Range Interpretation Comments U Phencyclidine Scr (test Negative code = U Phencyclidine *NA*(05/26/20 4:26 Scr) PM) [facility] [id number] 21:26:00 Test Item Value Reference Range Interpretation Comments UDS Note (test code = See Note (05/26/20 4:26 UDS Note) PM) [facility]villeYlowhthGCZBLALTWO0229-84-87 21:26:00 Test Item Value Reference Range Interpretation Comments WBC (test code = WBC) 12.1 3.7-10.4 [facility] RishwavORWQIONTAF6396-62-43 21:26:00 Test Item Value Reference Range Interpretation Comments RBC (test code = RBC) 3.29 4.20-5.40 [facility] GgzsnedXVDINKSWVS2140-32-85 21:26:00 Test Item Value Reference Range Interpretation Comments Hgb (test code = Hgb) 11.1 12.0-16.[address] [facility]RlaekgiTPEZFYDOGA9073-20-63 21:26:00 Test Item Value Reference Range Interpretation Comments Hct (test code = Hct) 32.7 36.0-48.[address] [facility] HospitalGalxjghMSBZKNQYXO7257-38-24 21:26:00 Test Item Value Reference Range Interpretation Comments MCV (test code = MCV) 99.5 80.0-98.[address] [facility]NqgktkzCRSYSJWRUN4133-64-45 21:26:00 Test Item Value Reference Range Interpretation Comments MCH (test code = MCH) 33.9 pg 27.0-31.[address] [facility] HospitalRbabjphQAQLDTQIPC5874-19-12 21:26:00 Test Item Value Reference Range Interpretation Comments MCHC (test code = MCHC) 34.1 32.0-36.[address] [facility]TwsgadhEKKFVECLLR0294-95-15 21:26:00 Test Item Value Reference Range Interpretation Comments RDW (test code = RDW) 13.1 11.5-14.[address] [facility]BnytqylKMNEYWCQRL4200-19-11 21:26:00 Test Item Value Reference Range Interpretation Comments Platelet (test code = Platelet) 320 133-[address] [facility] HospitalNresexyIWDYYAMDBG5345-44-71 21:26:00 Test Item Value Reference Range Interpretation Comments MPV (test code = MPV) 7.3 7.4-10.[address] [facility] HospitalSyyfarkVZGQLLPVTX8426-86-51 21:26:00 Test Item Value Reference Range Interpretation Comments Plt Morph (test code = Normal (05/26/20 4:26 Plt Morph) PM) [facility] HospitalNutijadASVKVTVXXO1490-50-01 21:26:00 Test Item Value Reference Range Interpretation Comments Segs (test code = Segs) 90.0 45.0-75.[address] [facility] HospitalMadaodtHNUIZQCHPE0632-19-31 21:26:00 Test Item Value Reference Range Interpretation Comments Lymphocytes (test code = Lymphocytes) 4.7 20.0-40.[address] [facility] HospitalKlsszdkNYKIEGSJPW2079-02-77 21:26:00 Test Item Value Reference Range Interpretation Comments Monocytes (test code = Monocytes) 4.9 2.0-12.[address] [facility] HospitalTgugueeFTJZHNOONM4962-07-58 21:26:00 Test Item Value Reference Range Interpretation Comments Eosinophils (test code = 0.1 See_Comment [A utomated message] The Eosinophils) system which ge nerated this result tra nsmitted reference range : <=4.0. The reference r pascual was not used to int erpret this result as normal/abnormal . [facility] HospitalSmodiskXCEPZYGXMY9744-52-81 21:26:00 Test Item Value Reference Range Interpretation Comments Basophils (test code = 0.3 See_Comment [Aut omated message] The Basophils) system which ge nerated this result tra nsmitted reference range : <=1.0. The reference r pascual was not used to int erpret this result as normal/abnormal . [facility] HospitalJczadnjSHUQFUDRUE0018-96-91 21:26:00 Test Item Value Reference Range Interpretation Comments Neutrophils # (test code = Neutrophils 10.9 1.5-8.1 #) [facility] HospitalMskujxkFOWXWAHRMJ8049-12-04 21:26:00 Test Item Value Reference Range Interpretation Comments Lymphocytes # (test code = Lymphocytes 0.6 1.0-5.5 #) [facility] HospitalLdkkkgfWHYIMHIANH3693-25-72 21:26:00 Test Item Value Reference Range Interpretation Comments Monocytes # (test code 0.6 See_Comment [Aut omated message] The = Monocytes #) system which generated this result tra nsmitted reference range : <=0.8. The reference r pascual was not used to int erpret this result as normal/abnormal . [facility] HospitalHarxyhhWXTNMZBKSY7445-31-88 21:26:00 Test Item Value Reference Range Interpretation Comments Macrocyte (test code = 1+ *ABN*(05/26/20 Macrocyte) 4:26 PM) [place] [address]-07-24 21:26:00 Test Item Value Reference Range Interpretation Comments Acetaminoph Lvl (test code = 3 10-20 Acetaminoph Lvl) [place] [address]2020-07-24 21:26:00 Test Item Value Reference Range Interpretation Comments Ethanol Lvl (test code = Ethanol Lvl) 7 [place] [address]2020-07-24 21:26:00 Test Item Value Reference Range Interpretation Comments Etoh (%) (test code = Etoh (%)) 0.007 [place] [address]-07-24 21:26:00 Test Item Value Reference Range Interpretation Comments Salicylate Lvl (test no gt See_Comment [Autom ated message] The code = Salicylate Lvl) syste m which generated this result tra nsmitted reference range : <=30.0. The reference r pascual was not used to int erpret this result as normal/abnormal . [facility] [id number] 21:26:0088[facility]annCHEM PANEL 2020-05-26 21:26:009[facility]ann[facility] [id number] 21:26:001.05[facility]ann[facility] ZJVOG7099-54-73 21:26:39619Ylwrusvx [facility]annCHE[facility] NDTLX6946-75-16 21:26:003.5[facility]annCHE[facility] KWHEW0042-82-10 21:26:21858Hquinpsi HermannCHE[facility] SKANT0999-81-14 21:26:0029[facility]annCHE[facility] PBSPS0737-19-75 21:26:008.0 [facility] LCUMX0958-21-67 21:26:005.6[facility]annCHEM PANEL 2020-05-26 21:26:002.4[facility]annCHE[facility] DCHMV7252-90-43 21:26:0039[facility]annCHE[facility] MYRVU2174-69-55 21:26:0061[facility]annCHE[facility] ISDNC1502-34-77 21:26:81740Xajqkikd [facility]annCHE[facility] IPWEC0379-32-87 21:26:000.9[facility]annCHE[facility] NHEKQ5172-94-20 21:26:0011.5[facility]CHE[facility] GDXWY7436-23-06 21:26:00 Test Item Value Reference Range Interpretation Comments B/C Ratio (test code = B/C Ratio) 9 1 6-25 [facility] [id number] 21:26:003.2[facility]annCHE[facility] PANEL 2020-05-26 21:26:00 Test Item Value Reference Range Interpretation Comments A/G Ratio (test code = A/G Ratio) 0.8 1 0.7-1.6 [facility] [id number] 21:26:0054[facility]annDR[facility] SCREEN 2020-05-26 21:26:00Negative *NA*(05/26/20 4:26 PM)[facility]CRE[facility] 2020-05-26 21:26:00Negative *NA*(05/26/20 4:26 PM)[facility]CRE[facility] 2020-05-26 21:26:00Positive *ABN*(05/26/20 4:26 PM)[facility]CRE[facility] 2020-05-26 21:26:00Negative *NA*(05/26/20 4:26 PM)[facility]CRE[facility] 2020-05-26 21:26:00Negative *NA*(05/26/20 4:26 PM)[facility] 2020-05-26 21:26:00Positive *ABN*(05/26/20 4:26 PM)[facility] 2020-05-26 21:26:00Negative *NA*(05/26/20 4:26 PM)[facility] SCREEN 2020-05-26 21:26:00See Note (05/26/20 4:26 PM)[facility]annHEMATOLOGY 2020-05-26 21:26:0012.1[facility] LskriboCBTILFNTZH9802-67-61 21:26:003.29[facility] MtmqxkfDXKKALWMOW7359-24-31 21:26:0011.1[facility] VgkxlgcEVDZMZWWTE2131-70-58 21:26:0032.7[facility] EzonmpxNFSGCABRSZ5660-59-58 21:26:0099.5[facility] [place] CCNNREUYRO6531-92-52 21:26:00 Test Item Value Reference Range Interpretation Comments MCH (test code = MCH) 33.9 pg 27.0-31.0 [facility] UukeotpVQZQYYOAVL3888-31-72 21:26:0034.1[facility]annHEMATOLOGY 2020-05-26 21:26:0013.1[facility] YbzpgvcVYXGBEJFPU6812-83-96 21:26:36104Fmupcqcs JuibbxkTMOPLIHDGI1119-36-60 21:26:007.3[facility] XqjmwqjCCCHOJLTWM0220-71-15 21:26:00Normal (05/26/20 4:26 PM)[facility] LlspmriTWNFBGZFSJ0912-82-63 21:26:00 90.0[facility] IvixjoeCDVLVBXGGH0688-06-26 21:26:004.7[facility]annHEMATOLOGY 2020-05-26 21:26:004.9[facility] IbioqfpOZTCVNTLPJ3794-37-19 21:26:000.1[facility] PfnfqdwDEXPAPFRFA6425-34-32 21:26:000.3[facility] FxzkmrxLHPHGASLUA7281-79-28 21:26:0010.9[facility] IomsvgaYXZRPGNYEI1720-99-38 21:26:000.6[facility] Sushil ANELJIOBJX2801-90-26 21:26:000.6[facility] FknkxpyNTXHGLZOPM9264-10-74 21:26:001+ *ABN*(05/26/20 4:26 PM)[facility] FhihdeiWUVOQZTHIC8789-21-72 21:26:003[facility] ZgllyzcBVOJGIAQLJ9665-91-13 21:26:007[facility] CemgrwjGDNRNQWBTX5656-63-13 21:26:000.007[facility] VibwuxlWOCQOSYNXN3566-77-83 21:26:00<1.7[facility]annCHEM JWXHN3303-11-84 21:26:0088[facility]annCHE[facility] DIIJZ6123-36-69 21:26:009[facility]annCHE[facility] ULCKH3482-05-14 21:26:001.05[facility]annCHE[facility] DXMWE4005-91-48 21:26:26249Gswuaqcr HermannCHEM BWGUC6578-01-39 21:26:003.5 [facility]annCHE[facility] LOHXK1786-78-75 21:26:55775Lxmhwhrl HermannCHEM PANEL 2020-05-26 21:26:0029[facility]annCHE[facility] SXPXT0964-39-93 21:26:008.0[facility]annCHE[facility] AWWFO6114-32-38 21:26:005.6[facility]annCHE[facility] QVNQE0524-90-01 21:26:002.4[facility]annCHE[facility] LHQQR9822-57-97 21:26:0039[facility]annCHE[facility] SNUHS2618-62-64 21:26:0061[facility]annCHE[facility] DKAOV4302-80-03 21:26:34464 [facility]CHE[facility] DOWFW9535-47-12 21:26:000.9[facility]annCHEM PANEL 2020-05-26 21:26:0011.5[facility]annCHE[facility] XFCXX2140-07-82 21:26:00 Test Item Value Reference Range Interpretation Comments B/C Ratio (test code = B/C Ratio) 9 1 6-25 [facility] VCGBC4954-12-04 21:26:003.2[facility]annCHEM PANEL 2020-05-26 21:26:00 Test Item Value Reference Range Interpretation Comments A/G Ratio (test code = A/G Ratio) 0.8 1 0.7-1.6 [facility]CHE[facility] VVBAL8315-57-83 21:26:0054[facility]annDRUG SCREEN 2020-05-26 21:26:00Negative *NA*(05/26/20 4:26 PM)[facility] SCREEN 2020-05-26 21:26:00Negative *NA*(05/26/20 4:26 PM)[facility] SCREEN 2020-05-26 21:26:00Positive *ABN*(05/26/20 4:26 PM)[facility] SCREEN 2020-05-26 21:26:00Negative *NA*(05/26/20 4:26 PM)[facility] SCREEN 2020-05-26 21:26:00Negative *NA*(05/26/20 4:26 PM)[facility] SCREEN 2020-05-26 21:26:00Positive *ABN*(05/26/20 4:26 PM)[facility] SCREEN 2020-05-26 21:26:00Negative *NA*(05/26/20 4:26 PM)[facility]ann[facility] SCREEN 2020-05-26 21:26:00See Note (05/26/20 4:26 PM)[facility]annHEMATOLOGY 2020-05-26 21:26:0012.1[facility] HljnqjzTBCLELXTEN8893-78-47 21:26:003.29[facility] NsvbjmvHFLHPYZMCI5900-63-54 21:26:0011.1[facility] AjbifilGBZSHBXFDN8432-75-24 21:26:0032.7[facility] PvkienpHGLNFBFSNH3966-09-91 21:26:0099.5[facility] Sushil VYTCIRSBFH1547-90-97 21:26:00 Test Item Value Reference Range Interpretation Comments MCH (test code = MCH) 33.9 pg 27.0-31.0 [facility] KipjgikRZCONEOZYH3048-91-12 21:26:0034.1[facility]annHEMATOLOGY 2020-05-26 21:26:0013.1[facility] TnuqlwuPLFUEYTHXU5516-09-91 21:26:65458Hxxwcumc IiptcmzXFAWLQRFQW3039-60-71 21:26:007.3[facility] CdemcadVOKVTWDPJX9747-60-61 21:26:00Normal (05/26/20 4:26 PM)[facility] YadimduXEXNRILLID8745-61-92 21:26:00 90.0[facility] IzxcbxxBPYJVDUDQF5519-42-53 21:26:004.7[facility]annHEMATOLOGY 2020-05-26 21:26:004.9[facility] DoejesgUTIODPMYPC9502-15-05 21:26:000.1[facility] RulaphdXDDRHEGDXX9594-44-42 21:26:000.3[facility] IwjwkfzZFDXOFUKSX8420-27-96 21:26:0010.9[facility] ByqucfqPUZMVTQSGS6695-58-86 21:26:000.6[facility] S[facility]il KQKHPTQQNC8350-76-43 21:26:000.6[facility] YfjknoaMYQPEDWSFJ2846-35-71 21:26:001+ *ABN*(05/26/20 4:26 PM)[facility] QzwaareNRDCRTTICY7100-05-21 21:26:003[facility] AwikfekHQCHOTWJUX4680-43-15 21:26:007[facility] YghqkorHLCBMMNYVG7686-05-21 21:26:000.007[facility] MczooypRUFWVNICSN3032-29-61 21:26:00<1.7[facility]annCHE[facility] KKRXF4356-34-53 21:26:0088[facility]annCHE[facility] POUDX9820-61-72 21:26:009[facility]annCHE[facility] EWINR0418-73-64 21:26:001.05[facility]annCHEM TIHKY1761-36-23 21:26:37904Knsrobqw HermannCHEM QRXNK5150-34-55 21:26:003.5 [facility]annCHE[facility] TNZIX1012-49-99 21:26:12929Dwnlevel HermannCHEM PANEL 2020-05-26 21:26:0029[facility]annCHE[facility] TXYXA5500-99-36 21:26:008.0[facility]annCHE[facility] PAGPL4334-29-09 21:26:005.6[facility]annCHE[facility] SSOZH9982-62-28 21:26:002.4[facility]annCHE[facility] BURQT4649-63-33 21:26:0039[facility]annCHE[facility] DMMEG1166-98-17 21:26:0061[facility]annCHE[facility] OYAEU1811-24-31 21:26:76204 [facility]annCHE[facility] VWYNL6179-86-30 21:26:000.9[facility]annCHEM PANEL 2020-05-26 21:26:0011.5[facility]annCHE[facility] EDSUR9257-45-84 21:26:00 Test Item Value Reference Range Interpretation Comments B/C Ratio (test code = B/C Ratio) 9 1 6-25 [facility]annCHE[facility] WGQEA9871-98-61 21:26:003.2[facility]annCHEM PANEL 2020-05-26 21:26:00 Test Item Value Reference Range Interpretation Comments A/G Ratio (test code = A/G Ratio) 0.8 1 0.7-1.6 [facility]annCHE[facility] BAVFC0652-15-63 21:26:0054[facility]annDRUG SCREEN 2020-05-26 21:26:00Negative *NA*(05/26/20 4:26 PM)[facility]annDR[facility] SCREEN 2020-05-26 21:26:00Negative *NA*(05/26/20 4:26 PM)[facility]DR[facility] SCREEN 2020-05-26 21:26:00Positive *ABN*(05/26/20 4:26 PM)[facility]CRE[facility] 2020-05-26 21:26:00Negative *NA*(05/26/20 4:26 PM)[facility]DR[facility]CREEN 2020-05-26 21:26:00Negative *NA*(05/26/20 4:26 PM)[facility]annDR[facility] SCREEN 2020-05-26 21:26:00Positive *ABN*(05/26/20 4:26 PM)[facility]DR[facility] SCREEN 2020-05-26 21:26:00Negative *NA*(05/26/20 4:26 PM)[facility] SCREEN 2020-05-26 21:26:00See Note (05/26/20 4:26 PM)[facility]annHEMATOLOGY 2020-05-26 21:26:0012.1[facility] IhfjhhpMBWFRVVCHD4084-09-42 21:26:003.29[facility] QlwtdjnIRVMYSEHPI4499-30-93 21:26:0011.1[facility] FgamrtfDPKMKWQNFG1150-44-29 21:26:0032.7[facility] MdtjyykKMGRYLCBFG6481-53-89 21:26:0099.5[facility] Sushil BRUOMMAQCW4486-52-44 21:26:00 Test Item Value Reference Range Interpretation Comments MCH (test code = MCH) 33.9 pg 27.0-31.0 [facility] JyhvcewIWDUSROMDB6206-23-52 21:26:0034.1[facility]annHEMATOLOGY 2020-05-26 21:26:0013.1[facility] ScnljlrXNROYRXPWQ6044-54-40 21:26:38136Azbxxrux XmwlncbCIJLIKRCZN1880-00-27 21:26:007.3[facility] JdzvponIVFPFSXCCN6320-08-33 21:26:00Normal (05/26/20 4:26 PM)[facility] BwnkerdDJOYDOVPSU7822-42-40 21:26:00 90.0[facility] GneopuoLQPHICRKDG4106-96-10 21:26:004.7[facility]annHEMATOLOGY 2020-05-26 21:26:004.9[facility] RuysxeuIXIPBJQCVD3870-49-77 21:26:000.1[facility] CultszyVABGWTWRLQ9403-87-81 21:26:000.3[facility] BjhjycrPGLLRHUTQV4380-69-70 21:26:0010.9[facility] MdsmcbbULLZCZVADK5305-76-94 21:26:000.6[facility] [place] JQNHWRVFLL1139-04-23 21:26:000.6[facility] MtmqbyjGODYQIERDA7230-99-68 21:26:001+ *ABN*(05/26/20 4:26 PM)[facility]villePvxplheWKMOMXWBEF4961-08-65 21:26:003[facility] PemilocZJIJUHJWEQ9517-20-85 21:26:007[facility] QracltgXDAQHTSVMF9186-68-34 21:26:000.007[facility] ZhpfomwLQHQDIRMHD4232-81-66 21:26:00<1.7[facility] 21:26:00 Test Item Value Reference Range Interpretation Comments Glucose Lvl (test code = Glucose Lvl) 88 70-99 [facility]2020-07-24 21:26:00 Test Item Value Reference Range Interpretation Comments BUN (test code = BUN) 9 - [facility]2020-07-24 21:26:00 Test Item Value Reference Range Interpretation Comments Creatinine Lvl (test code = Creatinine 1.05 0.50-1.40 Lvl) [facility]2020-07-24 21:26:00 Test Item Value Reference Range Interpretation Comments Sodium Lvl (test code = Sodium Lvl) 140 135-145 [facility]2020-07-24 21:26:00 Test Item Value Reference Range Interpretation Comments Potassium Lvl (test code = Potassium 3.5 3.5-5.1 Lvl) [facility]2020-07-24 21:26:00 Test Item Value Reference Range Interpretation Comments Chloride Lvl (test code = Chloride Lvl) 103 95-109 [facility]2020-07-24 21:26:00 Test Item Value Reference Range Interpretation Comments CO2 (test code = CO2) 29 -32 [facility]2020-07-24 21:26:00 Test Item Value Reference Range Interpretation Comments Calcium Lvl (test code = Calcium Lvl) 8.0 8.5-10.5 [facility]2020-07-24 21:26:00 Test Item Value Reference Range Interpretation Comments Total Protein (test code = Total 5.6 6.4-8.4 Protein) [facility]2020-07-24 21:26:00 Test Item Value Reference Range Interpretation Comments Albumin Lvl (test code = Albumin Lvl) 2.4 3.5-5.0 [facility]2020-07-24 21:26:00 Test Item Value Reference Range Interpretation Comments ALT (test code = ALT) 39 See_Comment [Auto mated message] The system which ge nerated this result transmit tracy reference range : <=65. The reference range was not used to interpr et this result as ramón l/abnormal. [facility]2020-07-24 21:26:00 Test Item Value Reference Range Interpretation Comments AST (test code = AST) 61 See_Comment [Auto mated message] The system which ge nerated this result transmit tracy reference range : <=37. The reference range was not used to interpr et this result as ramón l/abnormal. [facility]2020-07-24 21:26:00 Test Item Value Reference Range Interpretation Comments Alk Phos (test code = Alk Phos) 110 39-136 [facility]2020-07-24 21:26:00 Test Item Value Reference Range Interpretation Comments Bili Total (test code = Bili Total) 0.9 0.2-1.3 [facility]2020-07-24 21:26:00 Test Item Value Reference Range Interpretation Comments AGAP (test code = AGAP) 11.5 10.0-20.0 [facility]2020-07-24 21:26:00 Test Item Value Reference Range Interpretation Comments B/C Ratio (test code = B/C Ratio) 9 1 6-25 [facility]0-07-24 21:26:00 Test Item Value Reference Range Interpretation Comments Globulin (test code = Globulin) 3.2 2.7-4.2 [facility]2020-07-24 21:26:00 Test Item Value Reference Range Interpretation Comments A/G Ratio (test code = A/G Ratio) 0.8 1 0.7-1.6 [facility]2020-07-24 21:26:00 Test Item Value Reference Range Interpretation Comments eGFR (test code = eGFR) 54 [id number] 21:26:00 Test Item Value Reference Range Interpretation Comments U Amph Scr (test code Negative *NA*(05/26/20 = U Amph Scr) 4:26 PM) [facility] [id number] 21:26:00 Test Item Value Reference Range Interpretation Comments U Bruna Scr (test code Negative *NA*(05/26/20 = U Bruna Scr) 4:26 PM) [facility] [id number] 21:26:00 Test Item Value Reference Range Interpretation Comments U Benzodiaz Scr (test Positive *ABN*(05/26/20 code = U Benzodiaz Scr) 4:26 PM) [facility] [id number] 21:26:00 Test Item Value Reference Range Interpretation Comments U Cocaine Scr (test Negative *NA*(05/26/20 code = U Cocaine Scr) 4:26 PM) [facility] [id number] 21:26:00 Test Item Value Reference Range Interpretation Comments U Cannab Scr (test Negative *NA*(05/26/20 code = U Cannab Scr) 4:26 PM) [facility] [id number] 21:26:00 Test Item Value Reference Range Interpretation Comments U Opiate Scr (test Positive *ABN*(05/26/20 code = U Opiate Scr) 4:26 PM) [facility] [id number] 21:26:00 Test Item Value Reference Range Interpretation Comments U Phencyclidine Scr (test Negative code = U Phencyclidine *NA*(05/26/20 4:26 Scr) PM) [facility] [id number] 21:26:00 Test Item Value Reference Range Interpretation Comments UDS Note (test code = See Note (05/26/20 4:26 UDS Note) PM) [facility] NortheastGnogtbzQYNRXVHYLD4190-84-68 21:26:00 Test Item Value Reference Range Interpretation Comments WBC (test code = WBC) 12.1 3.7-10.4 [facility] NortheastAglvdzcASDBXKZHTF1798-82-32 21:26:00 Test Item Value Reference Range Interpretation Comments RBC (test code = RBC) 3.29 4.20-5.40 [facility] IikoyhnRMJKRKXSKN6656-40-27 21:26:00 Test Item Value Reference Range Interpretation Comments Hgb (test code = Hgb) 11.1 12.0-16.0 [facility]villeSiyaztjLLCKOGASGD2476-21-14 21:26:00 Test Item Value Reference Range Interpretation Comments Hct (test code = Hct) 32.7 36.0-48.0 [facility] NortheastEvugutsMLCGZZGXOM4108-38-28 21:26:00 Test Item Value Reference Range Interpretation Comments MCV (test code = MCV) 99.5 80.0-98.0 [facility] GreenvilleZenlzsgFZFSWLVRRK6004-75-43 21:26:00 Test Item Value Reference Range Interpretation Comments MCH (test code = MCH) 33.9 pg 27.0-31.0 [facility] GreenvilleBakvivxWZFKSKCNBK9508-00-67 21:26:00 Test Item Value Reference Range Interpretation Comments MCHC (test code = MCHC) 34.1 32.0-36.0 [facility] GreenvilleFlbtplbQXEVEYDQJD2979-00-83 21:26:00 Test Item Value Reference Range Interpretation Comments RDW (test code = RDW) 13.1 11.5-14.5 [facility] GreenvilleQauchesRNMSXOIAGR4092-41-95 21:26:00 Test Item Value Reference Range Interpretation Comments Platelet (test code = Platelet) 320 133-450 [facility] GreenvilleXrfhfspMEJFCWSTLH3270-60-96 21:26:00 Test Item Value Reference Range Interpretation Comments MPV (test code = MPV) 7.3 7.4-10.4 [facility] GreenvilleDewbmuuGYXRIWPPHG4388-77-26 21:26:00 Test Item Value Reference Range Interpretation Comments Plt Morph (test code = Normal (05/26/20 4:26 Plt Morph) PM) [facility]joOLZCNQKPFC5282-43-55 21:26:00 Test Item Value Reference Range Interpretation Comments Segs (test code = Segs) 90.0 45.0-75.0 [facility] NortheastRwjlfbrROTOSDUUTK5310-08-81 21:26:00 Test Item Value Reference Range Interpretation Comments Lymphocytes (test code = Lymphocytes) 4.7 20.0-40.0 [facility] NortheastMvgvyqoRFXJJLOJOW1269-99-25 21:26:00 Test Item Value Reference Range Interpretation Comments Monocytes (test code = Monocytes) 4.9 2.0-12.0 [facility]2020-07-24 21:26:00 Test Item Value Reference Range Interpretation Comments Bili Total (test code = Bili Total) 0.9 0.2-1.3 [facility] [id number] 21:26:00 Test Item Value Reference Range Interpretation Comments AGAP (test code = AGAP) 11.5 10.0-20.0 [facility] [id number] 21:26:00 Test Item Value Reference Range Interpretation Comments B/C Ratio (test code = B/C Ratio) 9 1 6-25 [facility] [id number] 21:26:00 Test Item Value Reference Range Interpretation Comments Globulin (test code = Globulin) 3.2 2.7-4.2 [facility] [id number] 21:26:00 Test Item Value Reference Range Interpretation Comments A/G Ratio (test code = A/G Ratio) 0.8 1 0.7-1.6 [facility] [id number] 21:26:00 Test Item Value Reference Range Interpretation Comments eGFR (test code = eGFR) 54 [facility] [id number] 21:26:00 Test Item Value Reference Range Interpretation Comments U Amph Scr (test code Negative *NA*(05/26/20 = U Amph Scr) 4:26 PM) [facility] [id number] 21:26:00 Test Item Value Reference Range Interpretation Comments U Bruna Scr (test code Negative *NA*(05/26/20 = U Bruna Scr) 4:26 PM) [facility] [id number] 21:26:00 Test Item Value Reference Range Interpretation Comments U Benzodiaz Scr (test Positive *ABN*(05/26/20 code = U Benzodiaz Scr) 4:26 PM) [facility] [id number] 21:26:00 Test Item Value Reference Range Interpretation Comments U Cocaine Scr (test Negative *NA*(05/26/20 code = U Cocaine Scr) 4:26 PM) [facility] [id number] 21:26:00 Test Item Value Reference Range Interpretation Comments U Cannab Scr (test Negative *NA*(05/26/20 code = U Cannab Scr) 4:26 PM) [facility] [id number] 21:26:00 Test Item Value Reference Range Interpretation Comments U Opiate Scr (test Positive *ABN*(05/26/20 code = U Opiate Scr) 4:26 PM) [facility] [id number] 21:26:00 Test Item Value Reference Range Interpretation Comments U Phencyclidine Scr (test Negative code = U Phencyclidine *NA*(05/26/20 4:26 Scr) PM) [facility] [id number] 21:26:00 Test Item Value Reference Range Interpretation Comments UDS Note (test code = See Note (05/26/20 4:26 UDS Note) PM) [facility] XamsrgbTZSPXTKRYG5760-00-63 21:26:00 Test Item Value Reference Range Interpretation Comments WBC (test code = WBC) 12.1 3.7-10.4 [facility] ZhndtuiIIOZKMVZIZ2286-48-22 21:26:00 Test Item Value Reference Range Interpretation Comments RBC (test code = RBC) 3.29 4.20-5.40 [facility]CHE[facility] [id number] 21:26:00 Test Item Value Reference Range Interpretation Comments Bili Total (test code = Bili Total) 0.9 0.2-1.3 [facility] IwjjilnQLTAAWGLQE1511-56-19 21:26:00 Test Item Value Reference Range Interpretation Comments Hgb (test code = Hgb) 11.1 12.0-16.0 [facility]GenexannCHE[facility] [id number] 21:26:00 Test Item Value Reference Range Interpretation Comments AGAP (test code = AGAP) 11.5 10.0-20.0 [facility] NortheastQcwquwcWWMKBHUBVJ0601-42-80 21:26:00 Test Item Value Reference Range Interpretation Comments Hct (test code = Hct) 32.7 36.0-48.0 [facility] [id number] 21:26:00 Test Item Value Reference Range Interpretation Comments B/C Ratio (test code = B/C Ratio) 9 1 6-25 [facility] SbhcwaeNZPGJLMZJV2816-80-00 21:26:00 Test Item Value Reference Range Interpretation Comments MCV (test code = MCV) 99.5 80.0-98.0 [facility] [id number] 21:26:00 Test Item Value Reference Range Interpretation Comments Globulin (test code = Globulin) 3.2 2.7-4.2 [facility] LhblipzFSJPFYHDGU3027-92-44 21:26:00 Test Item Value Reference Range Interpretation Comments MCH (test code = MCH) 33.9 pg 27.0-31.0 [facility] [id number] 21:26:00 Test Item Value Reference Range Interpretation Comments A/G Ratio (test code = A/G Ratio) 0.8 1 0.7-1.6 [facility] GreenvilleMxbsorlCEBKVAFRRN6624-45-13 21:26:00 Test Item Value Reference Range Interpretation Comments MCHC (test code = MCHC) 34.1 32.0-36.0 [facility] [id number] 21:26:00 Test Item Value Reference Range Interpretation Comments eGFR (test code = eGFR) [address] [facility] HospitalQtcmztfDTKXSZIVRB0056-26-25 21:26:00 Test Item Value Reference Range Interpretation Comments RDW (test code = RDW) 13.1 11.5-14.5 [facility] [id number] 21:26:00 Test Item Value Reference Range Interpretation Comments U Amph Scr (test code Negative *NA*(05/26/20 = U Amph Scr) 4:26 PM) [facility] HospitalEgommtuDWGFBEFYRA7013-53-99 21:26:00 Test Item Value Reference Range Interpretation Comments Platelet (test code = Platelet) 320 133-450 [facility]ville[facility] [id number] 21:26:00 Test Item Value Reference Range Interpretation Comments U Bruna Scr (test code Negative *NA*(05/26/20 = U Bruna Scr) 4:26 PM) [facility] HospitalSokntynVYGQOCXEEO3523-13-38 21:26:00 Test Item Value Reference Range Interpretation Comments MPV (test code = MPV) 7.3 7.4-10.4 [facility] [id number] 21:26:00 Test Item Value Reference Range Interpretation Comments U Benzodiaz Scr (test Positive *ABN*(05/26/20 code = U Benzodiaz Scr) 4:26 PM) [facility] HospitalXeamaviQYSDTVMTPI9169-35-33 21:26:00 Test Item Value Reference Range Interpretation Comments Plt Morph (test code = Normal (05/26/20 4:26 Plt Morph) PM) [facility] [id number] 21:26:00 Test Item Value Reference Range Interpretation Comments U Cocaine Scr (test Negative *NA*(05/26/20 code = U Cocaine Scr) 4:26 PM) [facility] HospitalNhnmgmcFAZQTLSHDQ0323-58-59 21:26:00 Test Item Value Reference Range Interpretation Comments Segs (test code = Segs) 90.0 45.0-75.0 [facility]DR[facility] [id number] 21:26:00 Test Item Value Reference Range Interpretation Comments U Cannab Scr (test Negative *NA*(05/26/20 code = U Cannab Scr) 4:26 PM) [facility] GreenvilleMskjurdVQBEQALJFJ5177-44-94 21:26:00 Test Item Value Reference Range Interpretation Comments Lymphocytes (test code = Lymphocytes) 4.7 20.0-40.0 [facility]DR[facility] [id number] 21:26:00 Test Item Value Reference Range Interpretation Comments U Opiate Scr (test Positive *ABN*(05/26/20 code = U Opiate Scr) 4:26 PM) [facility] HospitalIeqzvhlJFZHQMOWEG0766-12-72 21:26:00 Test Item Value Reference Range Interpretation Comments Monocytes (test code = Monocytes) 4.9 2.0-12.0 [facility]villeDR[facility] [id number] 21:26:00 Test Item Value Reference Range Interpretation Comments U Phencyclidine Scr (test Negative code = U Phencyclidine *NA*(05/26/20 4:26 Scr) PM) [facility] HospitalFwgzzewHGGXKUSTAG7582-36-52 21:26:00 Test Item Value Reference Range Interpretation Comments Eosinophils (test code = 0.1 See_Comment [A utomated message] The Eosinophils) system which ge nerated this result tra nsmitted reference range : <=4.0. The reference r pascual was not used to int erpret this result as normal/abnormal . [facility]villeM[facility] [id number] 21:26:00 Test Item Value Reference Range Interpretation Comments UDS Note (test code = See Note (05/26/20 4:26 UDS Note) PM) [facility] HospitalYvrnexlGFNWIEDTZU2154-25-91 21:26:00 Test Item Value Reference Range Interpretation Comments Basophils (test code = 0.3 See_Comment [Aut omated message] The Basophils) system which ge nerated this result tra nsmitted reference range : <=1.0. The reference r pascual was not used to int erpret this result as normal/abnormal . [facility] HospitalKirckgyCNWNZNCDYW8137-92-13 21:26:00 Test Item Value Reference Range Interpretation Comments WBC (test code = WBC) 12.1 3.7-10.[address] [facility] HospitalNwztdexUZCJPJAIOZ9427-66-50 21:26:00 Test Item Value Reference Range Interpretation Comments Neutrophils # (test code = Neutrophils 10.9 1.5-8.1 #) [facility] HospitalWaucuniZQUCZABCJH4950-68-11 21:26:00 Test Item Value Reference Range Interpretation Comments RBC (test code = RBC) 3.29 4.20-5.[address] [facility] HospitalIwsfdngVSNRJWTDMU1451-49-68 21:26:00 Test Item Value Reference Range Interpretation Comments Lymphocytes # (test code = Lymphocytes 0.6 1.0-5.5 #) [facility] HospitalBqfofgyWAKVDLWUYC7649-30-61 21:26:00 Test Item Value Reference Range Interpretation Comments Hgb (test code = Hgb) 11.1 12.0-16.0 [place] [id number] 21:26:00 Test Item Value Reference Range Interpretation Comments Monocytes # (test code 0.6 See_Comment [Aut omated message] The = Monocytes #) system which generated this result tra nsmitted reference range : <=0.8. The reference r pascual was not used to int erpret this result as normal/abnormal . [facility] HospitalJdurzksEZZTWDBZAV2513-10-97 21:26:00 Test Item Value Reference Range Interpretation Comments Hct (test code = Hct) 32.7 36.0-48.0 [place] 991440-07-24 21:26:00 Test Item Value Reference Range Interpretation Comments Macrocyte (test code = 1+ *ABN*(05/26/20 Macrocyte) 4:26 PM) [facility] HospitalJdqqwgcJFCEZSDYER4614-38-44 21:26:00 Test Item Value Reference Range Interpretation Comments MCV (test code = MCV) 99.5 80.0-98.0 [place] [address]2020-07-24 21:26:00 Test Item Value Reference Range Interpretation Comments Acetaminoph Lvl (test code = 3 08-22 Acetaminoph Lvl) [facility] HospitalPtbvhkdZTTKLZEPGW5863-86-29 21:26:00 Test Item Value Reference Range Interpretation Comments MCH (test code = MCH) 33.9 pg 27.0-31.0 [place] 146410-07-24 21:26:00 Test Item Value Reference Range Interpretation Comments Ethanol Lvl (test code = Ethanol Lvl) [address] [facility] HospitalJzormqbDTABPOUZHO1518-04-14 21:26:00 Test Item Value Reference Range Interpretation Comments MCHC (test code = MCHC) 34.1 32.0-36.0 [place] 146410-07-24 21:26:00 Test Item Value Reference Range Interpretation Comments Etoh (%) (test code = Etoh (%)) 0.[address] [facility] HospitalTyjcrzzBBAYTWGIEV9030-28-73 21:26:00 Test Item Value Reference Range Interpretation Comments RDW (test code = RDW) 13.1 11.5-14.5 [place] [address]-07-24 21:26:00 Test Item Value Reference Range Interpretation Comments Salicylate Lvl (test no gt See_Comment [Autom ated message] The code = Salicylate Lvl) syste m which generated this result tra nsmitted reference range : <=30.0. The reference r pascual was not used to int erpret this result as normal/abnormal . [facility] HospitalDgxcwdoPNCSVVXKGB1796-48-07 21:26:00 Test Item Value Reference Range Interpretation Comments Platelet (test code = Platelet) 320 133-450 [facility]2020-07-24 21:26:00 Test Item Value Reference Range Interpretation Comments Glucose Lvl (test code = Glucose Lvl) 88 70-99 [place] 991440-07-24 21:26:00 Test Item Value Reference Range Interpretation Comments MPV (test code = MPV) 7.3 7.4-10.4 [place] [id number] 21:26:00 Test Item Value Reference Range Interpretation Comments BUN (test code = BUN) 9 7-22 [place] [address]-07-24 21:26:00 Test Item Value Reference Range Interpretation Comments Plt Morph (test code = Normal (05/26/20 4:26 Plt Morph) PM) [place] 818820-07-24 21:26:00 Test Item Value Reference Range Interpretation Comments Creatinine Lvl (test code = Creatinine 1.05 0.50-1.40 Lvl) [place] 991440-07-24 21:26:00 Test Item Value Reference Range Interpretation Comments Segs (test code = Segs) 90.0 45.0-75.0 [facility]2020-07-24 21:26:00 Test Item Value Reference Range Interpretation Comments Sodium Lvl (test code = Sodium Lvl) 140 135-145 [place] 991440-07-24 21:26:00 Test Item Value Reference Range Interpretation Comments Lymphocytes (test code = Lymphocytes) 4.7 20.0-40.0 [place] 818820-07-24 21:26:00 Test Item Value Reference Range Interpretation Comments Potassium Lvl (test code = Potassium 3.5 3.5-5.1 Lvl) [facility] HospitalMbgacvqXERNWDDZMK9287-34-01 21:26:00 Test Item Value Reference Range Interpretation Comments Monocytes (test code = Monocytes) 4.9 2.0-12.0 [place] 818820-07-24 21:26:00 Test Item Value Reference Range Interpretation Comments Chloride Lvl (test code = Chloride Lvl) 103 95-[address] [facility] HospitalUtsulhmVKNRFFCXGX7660-67-08 21:26:00 Test Item Value Reference Range Interpretation Comments Eosinophils (test code = 0.1 See_Comment [A utomated message] The Eosinophils) system which ge nerated this result tra nsmitted reference range : <=4.0. The reference r pascual was not used to int erpret this result as normal/abnormal . [facility]2020-07-24 21:26:00 Test Item Value Reference Range Interpretation Comments CO2 (test code = CO2) 29 24-[address] [facility] [address]EdwmrocOEXADAAGTA8899-63-94 21:26:00 Test Item Value Reference Range Interpretation Comments Basophils (test code = 0.3 See_Comment [Aut omated message] The Basophils) system which ge nerated this result tra nsmitted reference range : <=1.0. The reference r pascual was not used to int erpret this result as normal/abnormal . [facility]2020-07-24 21:26:00 Test Item Value Reference Range Interpretation Comments Calcium Lvl (test code = Calcium Lvl) 8.0 8.5-10.5 [place] 991440-07-24 21:26:00 Test Item Value Reference Range Interpretation Comments Neutrophils # (test code = Neutrophils 10.9 1.5-8.1 #) [facility]2020-07-24 21:26:00 Test Item Value Reference Range Interpretation Comments Total Protein (test code = Total 5.6 6.4-8.4 Protein) [facility]2020-07-24 21:26:00 Test Item Value Reference Range Interpretation Comments Albumin Lvl (test code = Albumin Lvl) 2.4 3.5-5.0 [place] 991440-07-24 21:26:00 Test Item Value Reference Range Interpretation Comments Lymphocytes # (test code = Lymphocytes 0.6 1.0-5.5 #) [facility] HospitalSsrrqfnORYKCJFDCV0674-93-95 21:26:00 Test Item Value Reference Range Interpretation Comments Monocytes # (test code 0.6 See_Comment [Aut omated message] The = Monocytes #) system which generated this result tra nsmitted reference range : <=0.8. The reference r pascual was not used to int erpret this result as normal/abnormal . [facility]2020-07-24 21:26:00 Test Item Value Reference Range Interpretation Comments ALT (test code = ALT) 39 See_Comment [Auto mated message] The system which ge nerated this result transmit tracy reference range : <=65. The reference range was not used to interpr et this result as ramón l/abnormal. [facility] HospitalMlbunnaWCXETECOHR5617-18-17 21:26:00 Test Item Value Reference Range Interpretation Comments Macrocyte (test code = 1+ *ABN*(05/26/20 Macrocyte) 4:26 PM) [place] 818820-07-24 21:26:00 Test Item Value Reference Range Interpretation Comments AST (test code = AST) 61 See_Comment [Auto mated message] The system which ge nerated this result transmit tracy reference range : <=37. The reference range was not used to interpr et this result as ramón l/abnormal. [facility]villeKxqnfxwXQGNHDVSAD7821-67-39 21:26:00 Test Item Value Reference Range Interpretation Comments Acetaminoph Lvl (test code = 3 10-20 Acetaminoph Lvl) [place] 818820-07-24 21:26:00 Test Item Value Reference Range Interpretation Comments Alk Phos (test code = Alk Phos) 110 39-136 [place] 146410-07-24 21:26:00 Test Item Value Reference Range Interpretation Comments Ethanol Lvl (test code = Ethanol Lvl) 7 [place] 146410-07-24 21:26:00 Test Item Value Reference Range Interpretation Comments Etoh (%) (test code = Etoh (%)) 0.007 [place] [address]-07-24 21:26:00 Test Item Value Reference Range Interpretation Comments Salicylate Lvl (test no gt See_Comment [Autom ated message] The code = Salicylate Lvl) syste m which generated this result tra nsmitted reference range : <=30.0. The reference r pascual was not used to int erpret this result as normal/abnormal . [facility] [id number] 21:26:00 Test Item Value Reference Range Interpretation Comments Glucose Lvl (test code = Glucose Lvl) 88 70-99 [facility] [id number] 21:26:00 Test Item Value Reference Range Interpretation Comments BUN (test code = BUN) 9 - [facility] [id number] 21:26:00 Test Item Value Reference Range Interpretation Comments Creatinine Lvl (test code = Creatinine 1.05 0.50-1.40 Lvl) [facility] [id number] 21:26:00 Test Item Value Reference Range Interpretation Comments Sodium Lvl (test code = Sodium Lvl) 140 135-145 [facility] [id number] 21:26:00 Test Item Value Reference Range Interpretation Comments Potassium Lvl (test code = Potassium 3.5 3.5-5.1 Lvl) [facility] [id number] 21:26:00 Test Item Value Reference Range Interpretation Comments Chloride Lvl (test code = Chloride Lvl) 103 95-109 [facility] [id number] 21:26:00 Test Item Value Reference Range Interpretation Comments CO2 (test code = CO2) 29 -32 [facility] [id number] 21:26:00 Test Item Value Reference Range Interpretation Comments Calcium Lvl (test code = Calcium Lvl) 8.0 8.5-10.5 [facility] [id number] 21:26:00 Test Item Value Reference Range Interpretation Comments Total Protein (test code = Total 5.6 6.4-8.4 Protein) [facility]phroGenexannCHEM [id number] 21:26:00 Test Item Value Reference Range Interpretation Comments Albumin Lvl (test code = Albumin Lvl) 2.4 3.5-5.0 [facility] [id number] 21:26:00 Test Item Value Reference Range Interpretation Comments ALT (test code = ALT) 39 See_Comment [Auto mated message] The system which ge nerated this result transmit tracy reference range : <=65. The reference range was not used to interpr et this result as ramón l/abnormal. [facility] NephroGenexannCHEM [id number] 21:26:00 Test Item Value Reference Range Interpretation Comments AST (test code = AST) 61 See_Comment [Auto mated message] The system which ge nerated this result transmit tracy reference range : <=37. The reference range was not used to interpr et this result as ramón l/abnormal. [facility] NephroGenexannCHEM [id number] 21:26:00 Test Item Value Reference Range Interpretation Comments Alk Phos (test code = Alk Phos) 110 39-136 [facility] NephroGenexannCHEM [id number] 21:26:003.2[facility] 2020-[facility] 21:26:00 Test Item Value Reference Range Interpretation Comments A/G Ratio (test code = A/G Ratio) 0.8 1 0.7-1.6 [facility] HermannCHEM [id number] 21:26:0054[facility] 2020-[facility]-26 21:26:00Negative *NA*(05/26/20 4:26 PM)[facility] 2020-[facility]-26 21:26:00Negative *NA*(05/26/20 4:26 PM)[facility] 2020-[facility]-26 21:26:00Positive *ABN*(05/26/20 4:26 PM)[facility] 2020-[facility]-26 21:26:00Negative *NA*(05/26/20 4:26 PM)[facility] 2020-05-26 21:26:00Negative *NA*(05/26/20 4:26 PM)[facility] 2020-05-26 21:26:00Positive *ABN*(05/26/20 4:26 PM)[facility] 2020-05-26 21:26:00Negative *NA*(05/26/20 4:26 PM)[facility] 2020-05-26 21:26:00See Note (05/26/20 4:26 PM)[facility] 2020-05-26 21:26:0012.1[facility] DuzcivyXTXEKIKPNQ4600-18-67 21:26:003.29[facility] TafubfbTTKJLSKAWK0686-33-04 21:26:0011.1[facility] AfncbjoFJQTBXWXMA4695-36-10 21:26:0032.7[facility] ClumdcjCRYNJOVRVV5817-82-14 21:26:0099.5[facility] [place] GHABELRNNF6576-50-50 21:26:00 Test Item Value Reference Range Interpretation Comments MCH (test code = MCH) 33.9 pg 27.0-31.0 [facility] SzqdyevVVKIBLJVAJ7098-74-63 21:26:0034.1[facility]OLOGY 2020-[facility]-26 21:26:0013.1[facility] NlalxhbFRBJUJLLLY1362-44-15 21:26:95096Fcwhknov LddxknrJNCQOGORUZ0633-87-27 21:26:007.3[facility] SnmtphtGMRPNKKFUE3595-33-61 21:26:00Normal (05/26/20 4:26 PM)[facility] JfxcoksHTHAODTCDC0937-21-28 21:26:00 90.0[facility] UovqlvbRRNEIEPDCH3616-57-76 21:26:004.7[facility]annHEMATOLOGY 2020-05-26 21:26:004.9[facility] JjenuwxDEJUPUMRUF5288-09-05 21:26:000.1[facility] ZaixdprGNMBJNQKVD1127-25-29 21:26:000.3[facility] UjpypsoKICBPIINPE7967-74-88 21:26:0010.9[facility] SamhnrsPDCBLPPCEG0512-25-67 21:26:000.6[facility] [place] URSHRODHUP6778-76-89 21:26:000.6[facility] DdbxdxrOPYVZZXOEU2925-67-94 21:26:001+ *ABN*(05/26/20 4:26 PM)[facility] ShkppieSRDKCUKCNF2012-80-27 21:26:003[facility] VpwkpwhJSZUOBKQTL8143-14-65 21:26:007[facility] StotkffQDNUUHDFCF1410-73-60 21:26:000.007[facility] TmfxdvnBJZWPGLHXA7274-95-73 21:26:00<1.7[facility] HermannCHEM CRWAL4309-45-24 21:26:0088[facility]annCHEM XGQSU2089-36-78 21:26:009[facility]annCHEM SCZIE7481-65-63 21:26:001.05[facility]annCHEM MNQPJ6522-37-59 21:26:13148Hjswigjy HermannCHEM UDZUX9405-45-93 21:26:003.5 [facility]annCHE[facility] KODMY2290-39-66 21:26:87245Logqioqn HermannCHEM PANEL 2020-05-26 21:26:0029[facility]annCHEM TXVVQ6388-01-71 21:26:008.0[facility]annCHEM ABTAW4965-95-46 21:26:005.6[facility]annCHEM MZRCB6310-56-13 21:26:002.4[facility]annCHEM HVMBI8622-47-07 21:26:0039[facility]annCHEM DBLMO0420-74-83 21:26:0061[facility]annCHEM CZBLJ9425-72-88 21:26:77011 [facility]annCHEM HANUP7831-56-57 21:26:000.9[facility]annCHEM PANEL 2020-05-26 21:26:0011.5[facility]annCHEM BKYEF7434-63-65 21:26:00 Test Item Value Reference Range Interpretation Comments B/C Ratio (test code = B/C Ratio) 9 1 6-25 [facility]annT[facility] [id number] 18:05:00Surgical Pathology Report Case: [id number] Authorizing Provider: Saurabh Gomez MD Collected: 07/13/2019 1152 Ordering Location: [address] Received: 07/14/2019 0806 Service Pathologist: Sofía Gore MD Specimens: A) - Duodenum, Random Duodenum Bx B) - Biopsy, Gastric, random gastric bodyantrum biopsy C) - Biopsy, Mid-esophagus, mid esophagus [...] REACTIVE CHANGECC/pl Signing Pathologist Direct Phone Line: [phone] signed by Sofía Gore MD on 07/16/2019 at 6:05 [id number] [phone]; [phone] [phone] and postop diagnosis: anemiaA. Random duodenum biopsy; B. Random gastric body antrum biopsy; C. Mid esophagus biopsyThe case is received informalin in three containers each labeled with the patient's name and accession number.Part A labeled "duodenum" are two irregular do soft tissue fragments each measuring 0.3 cm which are submitted intoto in A1. Part B labeled "biopsy, gastric" [...] fibrinopurulent exudate, consistent with ulcer. The GMS stain is negative for fungal organisms in the ulcer. There is detached piece of cardiac/oxyntic mucosa with mild reactive change. No dysplasia is seen. The interpretation of this case included the use of im munohistochemistry or special stains.Control Slides Examined: In-house known positive controls were evaluated along with the test tissue. These control slides run alongside of the patients sample show appropriate staining. Internal positive and negative controls when available are evaluated Immunohistochemistry technical testing was performed at [facility], Pathology Laboratory where it was developed [...] qualified to perform high complexity clinical laboratory testing.[id number] 06:45:00 Test Item Value Reference Range Interpretation Comments MAGNESIUM (BEAKER) (test code = 1.8 mg/dL 1.6-2.6 627) BASIC METABOLIC [id number] 06:45:00 Test Item Value Reference Range Interpretation [...] PATIEN TS. CBC W/PLT COUNT & AUTO PMXYOJZIHBJI6429-38-65 05:54:00 Test Item Value Reference Range Interpretation [...] (BEAKER) (test code = 2801) VITAMIN D, 66-NYGCQQI1050-11-10 22:15:00 Test Item Value Reference Range Interpretation Comments VITAMIN D 25-OH (BEAKER) (test code 6.4 ng/mL 6.6-49.9 L = 2764) Effective 08/13/2017: Reference Range ChangeNew: 6.6-49.9 ng/mL Previous: 13.0- 47.8 ng/mLRecommendedVitamin D Target Range: 30.0-40.0 ng/mLVITAMIN B12 AND [id number] 18:39:00 Test Item Value Reference Range Interpretation Comments VITAMIN B12 (BEAKER) (test code = 900 pg/mL 213-816 H 774) FOLATE (BEAKER) (test code = 362) 36.1 ng/mL >=7.0 BASIC METABOLIC [id number] 04:34:00 Test Item Value Reference Range Interpretation [...] S NOT APPLICABLE FOR DIALYSIS PATIEN TS. [id number] 04:31:00 Test Item Value Reference Range Interpretation Comments MAGNESIUM (BEAKER) (test code = 1.9 mg/dL 1.6-2.6 627) CBC W/PLT COUNT & AUTO [id number] 04:17:00 Test Item Value Reference Range Interpretation [...] (BEAKER) (test code = 2801) HEMOGLOBIN AND [id number] 17:44:00 Test Item Value Reference Range Interpretation Comments HEMOGLOBIN (BEAKER) (test code = 7.7 GM/DL 11.2-15.7 L 410) HEMATOCRIT (BEAKER) (test code = 26.7 % 34.1-44.9 L 411) CBC W/PLT COUNT & AUTO [id number] 05:39:00 Test Item Value Reference Range Interpretation [...] (test code = 2801) TSH/FREE T4 IF [id number] 07:32:00 Test Item Value Reference Range Interpretation Comments THYROID STIMULATING HORMONE 2.57 uIU/mL 0.35-4.94 (BEAKER) (test code = 772) CBC W/PLT COUNT & AUTO [id number] 07:05:00 Test Item Value Reference Range Interpretation [...] 0-1 PERCENT (BEAKER) (test code = 2801) [id number] 13:35:00 Test Item Value Reference Range Interpretation Comments FERRITIN (BEAKER) (test code = 361) 9 ng/mL 5-275 VITAMIN B12 AND [id number] 13:35:00 Test Item Value Reference Range Interpretation [...] % 20-55 H (test code = 2590) [id number] 03:38:00 Test Item Value Reference Range Interpretation Comments AMMONIA (BEAKER) (test code = 348) 31 mol/L 18-72 HEPATIC FUNCTION [id number] 03:24:00 Test Item Value Reference Range Interpretation [...] = 11 U/L 6-55 347) BASIC METABOLIC [id number] 03:24:00 Test Item Value Reference Range Interpretation [...] S NOT APPLICABLE FOR DIALYSIS PATIEN TS. [id number] 03:23:00 Test Item Value Reference Range Interpretation Comments LIPASE (BEAKER) (test code = 749) 6 U/L 8-78 L PROTHROMBIN TIME/[id number] 03:14:00 Test Item Value Reference Range Interpretation [...] mechanical heart valves.CBC W/PLT COUNT & AUTO [id number] 03:01:00 Test Item Value Reference Range Interpretation [...] 0-1 PERCENT (BEAKER) (test code = 2801) [id number] 01:19:00 Test Item Value Reference Range Interpretation Comments AGAP (test code = AGAP) 12.8 10.0-20.0 [facility]HbnloqgNUWIEJQGQRHV6883-14-08 01:19:00 Test Item Value Reference Range Interpretation Comments eGFR (test code = eGFR) 59 [facility] HospitalVjoizprUNVSKFTFPYVR9487-00-40 01:19:00 Test Item Value Reference Range Interpretation Comments Glucose Lvl (test code = Glucose Lvl) 93 70-99 [facility] HospitalSvxnoqcEAXMCWMSTVSS3868-12-03 01:19:00 Test Item Value Reference Range Interpretation Comments Potassium Lvl (test code = Potassium 3.8 3.5-5.1 Lvl) [facility] HospitalCpmhjumHSWHGNTRAKWD0629-28-55 01:19:00 Test Item Value Reference Range Interpretation Comments Sodium Lvl (test code = Sodium Lvl) 137 135-145 [facility] HospitalFmdkbzpOFGQSVIWXQUT5462-55-40 01:19:00 Test Item Value Reference Range Interpretation Comments Creatinine Lvl (test code = Creatinine 1.00 0.50-1.40 Lvl) [facility] HospitalBqkrjkhXEZAFVFEKBGL4320-12-64 01:19:00 Test Item Value Reference Range Interpretation Comments BUN (test code = BUN) 11 7-22 [facility] HospitalZkwpiveZWEGGADIGIMU1772-07-05 01:19:00 Test Item Value Reference Range Interpretation Comments Calcium Lvl (test code = Calcium Lvl) 8.6 8.5-10.5 [facility] HospitalHrmhjkgLKURYCGGKDXU9718-01-91 01:19:00 Test Item Value Reference Range Interpretation Comments CO2 (test code = CO2) 24 24-32 [facility] HospitalKuxrkbpFWOPOLTKRNPO0807-04-79 01:19:00 Test Item Value Reference Range Interpretation Comments Chloride Lvl (test code = Chloride Lvl) 104 95-[address] [facility]YchnzbjUSRJFCCZJA9041-79-92 01:19:00 Test Item Value Reference Range Interpretation Comments PTT (test code = PTT) 38.7 s 22.9-35.[address] [facility] HospitalQwlebkeMKLZKIJDSS9615-00-77 01:19:00 Test Item Value Reference Range Interpretation Comments MPV (test code = MPV) 6.9 7.4-10.[address] [facility] HospitalQwvavrsMOXZVVDDIS8900-16-09 01:19:00 Test Item Value Reference Range Interpretation Comments WBC (test code = WBC) 6.5 3.7-10.[address] [facility] HospitalJuaxchrSQBCKDPFRR8300-10-67 01:19:00 Test Item Value Reference Range Interpretation Comments RDW (test code = RDW) 25.2 11.5-14.[address] [facility] HospitalHczdhjeUQSGNCBHHH0812-01-33 01:19:00 Test Item Value Reference Range Interpretation Comments MCV (test code = MCV) 69.4 80.0-98.[address] [facility] HospitalVynhuxiZWBVZDFUJM2288-99-30 01:19:00 Test Item Value Reference Range Interpretation Comments MCH (test code = MCH) 20.4 pg 27.0-31.[address] [facility] HospitalRbgynokCHZBHYLVCL7392-14-06 01:19:00 Test Item Value Reference Range Interpretation Comments Hct (test code = Hct) 24.3 36.0-48.[address] [facility] HospitalUoqjdwiNZHKFFNHLF3727-81-02 01:19:00 Test Item Value Reference Range Interpretation Comments RBC (test code = RBC) 3.51 4.20-5.[address] [facility] HospitalEkgajvcUYFPJDAZAA2825-32-09 01:19:00 Test Item Value Reference Range Interpretation Comments Hgb (test code = Hgb) 7.2 12.0-16.[address] [facility] HospitalSvlsasxTPDKPVFNQM9852-88-01 01:19:00 Test Item Value Reference Range Interpretation Comments Platelet (test code = Platelet) 298 133-[address] [facility] HospitalMyektxoKDLVBHSITB1602-38-18 01:19:00 Test Item Value Reference Range Interpretation Comments MCHC (test code = MCHC) 29.5 32.0-36.[address] [facility] HospitalDvpcxquDYSMAQVHDM8354-68-30 01:19:00 Test Item Value Reference Range Interpretation Comments INR (test code = INR) 0.92 0.85-1.[address] [facility] HospitalVumlmwvTLTPXHHSOD0607-37-49 01:19:00 Test Item Value Reference Range Interpretation Comments PT (test code = PT) 12.4 s 12.0-14.[address] [facility] HospitalCogkxfdWLTWECZHST5102-69-37 01:19:00 Test Item Value Reference Range Interpretation Comments Segs-Bands # (test code = Segs-Bands #) 4.8 1.5-8.[address] [facility] HospitalLndukyhDGKWOOMYXK1540-26-60 01:19:00 Test Item Value Reference Range Interpretation Comments Lymphocytes # (test code = Lymphocytes 0.9 1.0-5.5 #) [facility] HospitalKhojmsbDJATLZZYNX3871-66-47 01:19:00 Test Item Value Reference Range Interpretation Comments Monocytes # (test code 0.6 See_Comment [Aut omated message] The = Monocytes #) system which generated this result tra nsmitted reference range : <=0.8. The reference r pascual was not used to int erpret this result as normal/abnormal . [facility] HospitalQtpwtipZXFNTXWYRA4235-29-55 01:19:00 Test Item Value Reference Range Interpretation Comments Hypochrom (test code = 1+ (09/06/17 8:19 PM) Hypochrom) [facility] HospitalCzrdpccIZZNWPJIXS9345-24-90 01:19:00 Test Item Value Reference Range Interpretation Comments Anisocyte (test code = 1+ *ABN*(09/06/17 Anisocyte) 8:19 PM) [facility] HospitalVmwtblpUNCNWJZSRV5731-69-22 01:19:00 Test Item Value Reference Range Interpretation Comments Microcyte (test code = 2+ *ABN*(09/06/17 Microcyte) 8:19 PM) [facility] HospitalHbgdiieHVACLRJLDU9108-73-74 01:19:00 Test Item Value Reference Range Interpretation Comments Eosinophils # (test code 0.1 See_Comment [A utomated message] The = Eosinophils #) system whic h generated this result tra nsmitted reference range : <=0.5. The reference r pascual was not used to int erpret this result as normal/abnormal . [facility] HospitalDhhcufsGFFSPSLJYQ7599-89-03 01:19:00 Test Item Value Reference Range Interpretation Comments Segs (test code = Segs) 74.1 45.0-75.[address] [facility] HospitalUcnfypmQIQRIPFQIT8779-65-43 01:19:00 Test Item Value Reference Range Interpretation Comments Lymphocytes (test code = Lymphocytes) 13.9 20.0-40.[address] [facility] HospitalQaqerxqEZQCSFYRJF4690-64-26 01:19:00 Test Item Value Reference Range Interpretation Comments Plt Morph (test code = Normal (09/06/17 8:19 Plt Morph) PM) [facility] HospitalHhbzszeZDJNTYAYVV2474-07-35 01:19:00 Test Item Value Reference Range Interpretation Comments Monocytes (test code = Monocytes) 9.1 2.0-12.[address] [facility] HospitalIwaidsjOFGYZDZFGH8894-54-69 01:19:00 Test Item Value Reference Range Interpretation Comments Eosinophils (test code = 2.3 See_Comment [A utomated message] The Eosinophils) system which ge nerated this result tra nsmitted reference range : <=4.0. The reference r pascual was not used to int erpret this result as normal/abnormal . [facility] HospitalBbylhgfDPUQLUITPO0805-01-62 01:19:00 Test Item Value Reference Range Interpretation Comments Basophils (test code = 0.6 See_Comment [Aut omated message] The Basophils) system which ge nerated this result tra nsmitted reference range : <=1.0. The reference r pascual was not used to int erpret this result as normal/abnormal . [facility] HospitalCtxvmjuBTIPESMCQOTD8950-55-04 01:19:00 Test Item Value Reference Range Interpretation Comments AGAP (test code = AGAP) 12.8 10.0-20.0 [facility] HospitalMwungopCMDPOJYEVIKL9590-89-00 01:19:00 Test Item Value Reference Range Interpretation Comments eGFR (test code = eGFR) 59 [facility] HospitalRkcjvadJHENAATWPNEY9866-52-33 01:19:00 Test Item Value Reference Range Interpretation Comments Glucose Lvl (test code = Glucose Lvl) 93 70-99 [facility] HospitalIxhogvqQVXWHIJIBLLG6170-93-24 01:19:00 Test Item Value Reference Range Interpretation Comments Potassium Lvl (test code = Potassium 3.8 3.5-5.1 Lvl) [facility] HospitalBqqqhmhVHUCWHRZOUDD8631-66-01 01:19:00 Test Item Value Reference Range Interpretation Comments Sodium Lvl (test code = Sodium Lvl) 137 135-145 [facility] HospitalBjgzmfhFBTBIPPREKVE1403-97-09 01:19:00 Test Item Value Reference Range Interpretation Comments Creatinine Lvl (test code = Creatinine 1.00 0.50-1.40 Lvl) [facility] HospitalRwpkrkwZFVLLFHDBAMU7814-67-77 01:19:00 Test Item Value Reference Range Interpretation Comments BUN (test code = BUN) 11 7-22 [facility] HospitalWgwbqxlLJSVWHNGVTEY3904-74-94 01:19:00 Test Item Value Reference Range Interpretation Comments Calcium Lvl (test code = Calcium Lvl) 8.6 8.5-10.5 [facility] HospitalHkvlfsuANYHVZGOGSJW7550-12-73 01:19:00 Test Item Value Reference Range Interpretation Comments CO2 (test code = CO2) 24 24-32 [facility] HospitalDwwjhwjZLKJODAWIBAR9389-67-96 01:19:00 Test Item Value Reference Range Interpretation Comments Chloride Lvl (test code = Chloride Lvl) 104 95-[address] [facility] HospitalOmppuvwYOCPVUOFZD2219-57-61 01:19:00 Test Item Value Reference Range Interpretation Comments PTT (test code = PTT) 38.7 s 22.9-35.[address] [facility] HospitalMmfjefwMUOUXJSNMN8317-36-88 01:19:00 Test Item Value Reference Range Interpretation Comments MPV (test code = MPV) 6.9 7.4-10.[address] [facility] HospitalHbedpslIULXEDQTTH5024-26-16 01:19:00 Test Item Value Reference Range Interpretation Comments WBC (test code = WBC) 6.5 3.7-10.[address] [facility] HospitalKqflgbjLRHSQHNZIU4430-84-38 01:19:00 Test Item Value Reference Range Interpretation Comments RDW (test code = RDW) 25.2 11.5-14.[address] [facility] HospitalMsafzfuKOBMCYRGKH5114-21-12 01:19:00 Test Item Value Reference Range Interpretation Comments MCV (test code = MCV) 69.4 80.0-98.[address] [facility] HospitalOgbrytmPJTYBAJUYP1861-99-31 01:19:00 Test Item Value Reference Range Interpretation Comments MCH (test code = MCH) 20.4 pg 27.0-31.[address] [facility] HospitalWcvbkzePMUNDSDSSP8509-71-02 01:19:00 Test Item Value Reference Range Interpretation Comments Hct (test code = Hct) 24.3 36.0-48.[address] [facility] HospitalXlnodvzZIELQTZORR9933-03-46 01:19:00 Test Item Value Reference Range Interpretation Comments RBC (test code = RBC) 3.51 4.20-5.[address] [facility] HospitalIzogdcyLXLIJWJHPE1075-83-96 01:19:00 Test Item Value Reference Range Interpretation Comments Hgb (test code = Hgb) 7.2 12.0-16.[address] [facility] HospitalKtjqhtxOCFIZNXGGB8470-79-29 01:19:00 Test Item Value Reference Range Interpretation Comments Platelet (test code = Platelet) 298 133-[address] [facility] HospitalSfudzwfMXGZKNYLDF7348-10-29 01:19:00 Test Item Value Reference Range Interpretation Comments MCHC (test code = MCHC) 29.5 32.0-36.[address] [facility] HospitalHkhysgcXKIKIEVKWZ8455-75-12 01:19:00 Test Item Value Reference Range Interpretation Comments INR (test code = INR) 0.92 0.85-1.[address] [facility] HospitalTcyqqzjOZPRUYKQEU6169-06-71 01:19:00 Test Item Value Reference Range Interpretation Comments PT (test code = PT) 12.4 s 12.0-14.[address] [facility] HospitalLobbybkXQDDMORAXL4145-32-60 01:19:00 Test Item Value Reference Range Interpretation Comments Segs-Bands # (test code = Segs-Bands #) 4.8 1.5-8.[address] [facility] HospitalXhbwwlnXLGZMNJIYN1522-23-17 01:19:00 Test Item Value Reference Range Interpretation Comments Lymphocytes # (test code = Lymphocytes 0.9 1.0-5.5 #) [facility] HospitalXlyfvigRGKDVHCBMT2286-19-58 01:19:00 Test Item Value Reference Range Interpretation Comments Monocytes # (test code 0.6 See_Comment [Aut omated message] The = Monocytes #) system which generated this result tra nsmitted reference range : <=0.8. The reference r pascual was not used to int erpret this result as normal/abnormal . [facility] HospitalAzjptiuBSNQSHWRWJ6485-22-42 01:19:00 Test Item Value Reference Range Interpretation Comments Hypochrom (test code = 1+ (09/06/17 8:19 PM) Hypochrom) [facility] HospitalLyttzdcHMOBVJGEIC9391-04-73 01:19:00 Test Item Value Reference Range Interpretation Comments Anisocyte (test code = 1+ *ABN*(09/06/17 Anisocyte) 8:19 PM) [facility] HospitalFueblblMHSBSBSGMW9186-99-41 01:19:00 Test Item Value Reference Range Interpretation Comments Microcyte (test code = 2+ *ABN*(09/06/17 Microcyte) 8:19 PM) [facility] HospitalPuekyxkFXVTXHZHEU4968-64-59 01:19:00 Test Item Value Reference Range Interpretation Comments Eosinophils # (test code 0.1 See_Comment [A utomated message] The = Eosinophils #) system whic h generated this result tra nsmitted reference range : <=0.5. The reference r pascual was not used to int erpret this result as normal/abnormal . [facility] HospitalKvhehaiKTYYCUYBCD2804-61-28 01:19:00 Test Item Value Reference Range Interpretation Comments Segs (test code = Segs) 74.1 45.0-75.[address] [facility] HospitalYcpegeqLLHCUKGFWB1377-34-40 01:19:00 Test Item Value Reference Range Interpretation Comments Lymphocytes (test code = Lymphocytes) 13.9 20.0-40.[address] [facility] HospitalUngyevpPNZSDGPTWA8719-91-21 01:19:00 Test Item Value Reference Range Interpretation Comments Plt Morph (test code = Normal (09/06/17 8:19 Plt Morph) PM) [facility] HospitalBdivxaeBXXDKXZEPA4967-96-39 01:19:00 Test Item Value Reference Range Interpretation Comments Monocytes (test code = Monocytes) 9.1 2.0-12.[address] [facility] HospitalGxckoznTUZEIBVOUW1852-20-37 01:19:00 Test Item Value Reference Range Interpretation Comments Eosinophils (test code = 2.3 See_Comment [A utomated message] The Eosinophils) system which ge nerated this result tra nsmitted reference range : <=4.0. The reference r pascual was not used to int erpret this result as normal/abnormal . [facility] HospitalBbyjixxVQFLWZJGPM4428-72-59 01:19:00 Test Item Value Reference Range Interpretation Comments Basophils (test code = 0.6 See_Comment [Aut omated message] The Basophils) system which ge nerated this result tra nsmitted reference range : <=1.0. The reference r pascual was not used to int erpret this result as normal/abnormal . [facility] HospitalWhokfvlULUZTOACUHJH0528-48-11 01:19:00 Test Item Value Reference Range Interpretation Comments AGAP (test code = AGAP) 12.8 10.0-20.0 [facility] HospitalRnnqrvpUYSGOKECAFDP4551-04-44 01:19:00 Test Item Value Reference Range Interpretation Comments eGFR (test code = eGFR) 59 [facility] HospitalMgonofcHWZVOTEENBLG6903-92-95 01:19:00 Test Item Value Reference Range Interpretation Comments Glucose Lvl (test code = Glucose Lvl) 93 70-99 [facility] HospitalIbsmjmaPZTXIYKTQNUF3520-97-96 01:19:00 Test Item Value Reference Range Interpretation Comments Potassium Lvl (test code = Potassium 3.8 3.5-5.1 Lvl) [facility] HospitalIouduyhXRKRYSOKVDWL4156-60-31 01:19:00 Test Item Value Reference Range Interpretation Comments Sodium Lvl (test code = Sodium Lvl) 137 135-145 [facility] HospitalLniwwbxOECZLJHFSTKJ1419-29-86 01:19:00 Test Item Value Reference Range Interpretation Comments Creatinine Lvl (test code = Creatinine 1.00 0.50-1.40 Lvl) [facility] HospitalNgiqiooWEJKNGWRURAO8662-15-61 01:19:00 Test Item Value Reference Range Interpretation Comments BUN (test code = BUN) 11 7-22 [facility] HospitalEfyhkwdGLBZXVRYOZHJ4842-72-63 01:19:00 Test Item Value Reference Range Interpretation Comments Calcium Lvl (test code = Calcium Lvl) 8.6 8.5-10.5 [facility] HospitalVimplalWKSKGMTFLFZF5047-35-98 01:19:00 Test Item Value Reference Range Interpretation Comments CO2 (test code = CO2) 24 24-32 [facility] HospitalHnfrukfRXJSKPCIORUI7678-41-96 01:19:00 Test Item Value Reference Range Interpretation Comments Chloride Lvl (test code = Chloride Lvl) 104 95-[address] [facility] HospitalTwfhoqjOFMNTPWGCE9607-74-49 01:19:00 Test Item Value Reference Range Interpretation Comments PTT (test code = PTT) 38.7 s 22.9-35.[address] [facility] HospitalGiyycgmLWBRZNVPXY4700-69-77 01:19:00 Test Item Value Reference Range Interpretation Comments MPV (test code = MPV) 6.9 7.4-10.[address] [facility] HospitalKynmndcKDYXNAJUFX8973-88-06 01:19:00 Test Item Value Reference Range Interpretation Comments WBC (test code = WBC) 6.5 3.7-10.[address] [facility] HospitalAxnjjjmNFMDAFTSZB0440-35-20 01:19:00 Test Item Value Reference Range Interpretation Comments RDW (test code = RDW) 25.2 11.5-14.[address] [facility] HospitalNrnhimbVURPASHBFB3259-80-34 01:19:00 Test Item Value Reference Range Interpretation Comments MCV (test code = MCV) 69.4 80.0-98.[address] [facility] HospitalOggrkdlLUEJRVARUR4293-86-73 01:19:00 Test Item Value Reference Range Interpretation Comments MCH (test code = MCH) 20.4 pg 27.0-31.[address] [facility] HospitalPmakqrpTFMBOKMRHC0854-91-94 01:19:00 Test Item Value Reference Range Interpretation Comments Hct (test code = Hct) 24.3 36.0-48.[address] [facility] HospitalObhbzdoLHWJHMUIBY4566-60-25 01:19:00 Test Item Value Reference Range Interpretation Comments RBC (test code = RBC) 3.51 4.20-5.[address] [facility] HospitalExyyfudBYANUKHOFP4807-76-04 01:19:00 Test Item Value Reference Range Interpretation Comments Hgb (test code = Hgb) 7.2 12.0-16.[address] [facility] HospitalVhxfwlaOKHALDVXXW5591-93-86 01:19:00 Test Item Value Reference Range Interpretation Comments Platelet (test code = Platelet) 298 133-[address] [facility] HospitalErcgherRZHYTKTSOE4259-25-88 01:19:00 Test Item Value Reference Range Interpretation Comments MCHC (test code = MCHC) 29.5 32.0-36.[address] [facility] HospitalIwopwulJZHJZPABSY6089-77-97 01:19:00 Test Item Value Reference Range Interpretation Comments INR (test code = INR) 0.92 0.85-1.[address] [facility] HospitalQgiwlcwKQDUHDBBOM7605-60-97 01:19:00 Test Item Value Reference Range Interpretation Comments PT (test code = PT) 12.4 s 12.0-14.[address] [facility] HospitalJkvmospWNFCJNTUQE8790-22-70 01:19:00 Test Item Value Reference Range Interpretation Comments Segs-Bands # (test code = Segs-Bands #) 4.8 1.5-8.1 [facility] [facility]zokBURMJATCDL6730[facility] 01:19:00 Test Item Value Reference Range Interpretation Comments Lymphocytes # (test code = Lymphocytes 0.9 1.0-5.5 #) [facility]SfhokouDLFFHVXHQN0053-58-23 01:19:00 Test Item Value Reference Range Interpretation Comments Monocytes # (test code 0.6 See_Comment [Aut omated message] The = Monocytes #) system which generated this result tra nsmitted reference range : <=0.8. The reference r pascual was not used to int erpret this result as normal/abnormal . [facility] HospitalBqczlcxPAWGMPSWAH6502-16-38 01:19:00 Test Item Value Reference Range Interpretation Comments Hypochrom (test code = 1+ (09/06/17 8:19 PM) Hypochrom) [facility] HospitalDfxppndQFSDEUWLYM4893-14-63 01:19:00 Test Item Value Reference Range Interpretation Comments Anisocyte (test code = 1+ *ABN*(09/06/17 Anisocyte) 8:19 PM) [facility] HospitalNlczuobBFAAXSHCEY8149-52-58 01:19:00 Test Item Value Reference Range Interpretation Comments Microcyte (test code = 2+ *ABN*(09/06/17 Microcyte) 8:19 PM) [facility] HospitalFfgzfbkHIZFWEWCMN4389-48-78 01:19:00 Test Item Value Reference Range Interpretation Comments Eosinophils # (test code 0.1 See_Comment [A utomated message] The = Eosinophils #) system whic h generated this result tra nsmitted reference range : <=0.5. The reference r pascual was not used to int erpret this result as normal/abnormal . [facility] HospitalRplktwmWEBLHJTFSI1872-55-14 01:19:00 Test Item Value Reference Range Interpretation Comments Segs (test code = Segs) 74.1 45.0-75.[address] [facility]ChyxppeQBNEIFHOLP3588-84-96 01:19:00 Test Item Value Reference Range Interpretation Comments Lymphocytes (test code = Lymphocytes) 13.9 20.0-40.[address] [facility] HospitalIuzlkfsWBBLXSBJMP4991-28-21 01:19:00 Test Item Value Reference Range Interpretation Comments Plt Morph (test code = Normal (09/06/17 8:19 Plt Morph) PM) [facility] HospitalJmgzepbSVZFDRKJJL7652-74-77 01:19:00 Test Item Value Reference Range Interpretation Comments Monocytes (test code = Monocytes) 9.1 2.0-12.[address] [facility]KxlioxdMYSFDDOFQR1243-04-26 01:19:00 Test Item Value Reference Range Interpretation Comments Eosinophils (test code = 2.3 See_Comment [A utomated message] The Eosinophils) system which ge nerated this result tra nsmitted reference range : <=4.0. The reference r pascual was not used to int erpret this result as normal/abnormal . [facility] HospitalCtmhxmbKVVYUBTSEM6128-69-81 01:19:00 Test Item Value Reference Range Interpretation Comments Basophils (test code = 0.6 See_Comment [Aut omated message] The Basophils) system which ge nerated this result tra nsmitted reference range : <=1.0. The reference r pascual was not used to int erpret this result as normal/abnormal . [facility]LflhbdbBWUKFTFCGHBL8856-97-24 01:19:00 Test Item Value Reference Range Interpretation Comments AGAP (test code = AGAP) 12.8 10.0-20.0 [facility] HospitalQlrjuqoJAPIXLFLYKYQ6276-39-20 01:19:00 Test Item Value Reference Range Interpretation Comments eGFR (test code = eGFR) 59 [facility] HospitalGwwuyngDYGRVBJPIZFW5769-24-51 01:19:00 Test Item Value Reference Range Interpretation Comments Glucose Lvl (test code = Glucose Lvl) 93 70-99 [facility] HospitalFcvnobeHQPRIZPYSPCY0549-63-04 01:19:00 Test Item Value Reference Range Interpretation Comments Potassium Lvl (test code = Potassium 3.8 3.5-5.1 Lvl) [facility] HospitalOueafvlSFNQYEYPVIGV9536-94-40 01:19:00 Test Item Value Reference Range Interpretation Comments Sodium Lvl (test code = Sodium Lvl) 137 135-145 [facility] HospitalKibaiayVFEMOVQTPOVP4735-69-43 01:19:00 Test Item Value Reference Range Interpretation Comments Creatinine Lvl (test code = Creatinine 1.00 0.50-1.40 Lvl) [facility] HospitalZwqotqlIZSXYAQSRNJA0397-39-80 01:19:00 Test Item Value Reference Range Interpretation Comments BUN (test code = BUN) 11 7-22 [facility] HospitalHvtvfxhTPOFQPGEVEPP9929-58-27 01:19:00 Test Item Value Reference Range Interpretation Comments Calcium Lvl (test code = Calcium Lvl) 8.6 8.5-10.5 [facility] HospitalVymlgigDGBCOMAPRXVY4145-92-06 01:19:00 Test Item Value Reference Range Interpretation Comments CO2 (test code = CO2) 24 24-32 [facility] HospitalNcxrdgoIHNQFYLJPQMU7177-99-12 01:19:00 Test Item Value Reference Range Interpretation Comments Chloride Lvl (test code = Chloride Lvl) 104 95-109 [facility]villeFwpdjlbNGBFLATDPI8666-10-20 01:19:00 Test Item Value Reference Range Interpretation Comments PTT (test code = PTT) 38.7 s 22.9-35.[address] [facility]RwfuzmdUMZHVRNZUK3432-79-79 01:19:00 Test Item Value Reference Range Interpretation Comments MPV (test code = MPV) 6.9 7.4-10.[address] [facility] HospitalMfkuudfDNOJEKKIBU7383-07-22 01:19:00 Test Item Value Reference Range Interpretation Comments WBC (test code = WBC) 6.5 3.7-10.[address] [facility] HospitalViktcqbAQWSQZUHXI7822-11-75 01:19:00 Test Item Value Reference Range Interpretation Comments RDW (test code = RDW) 25.2 11.5-14.[address] [facility] HospitalNkkqilpYLISHIQDXF2967-24-09 01:19:00 Test Item Value Reference Range Interpretation Comments MCV (test code = MCV) 69.4 80.0-98.[address] [facility] HospitalCbsvdccAACWRBFKTE6233-09-55 01:19:00 Test Item Value Reference Range Interpretation Comments MCH (test code = MCH) 20.4 pg 27.0-31.[address] [facility] HospitalKkawgwyFTXQSZMCRW2495-35-73 01:19:00 Test Item Value Reference Range Interpretation Comments Hct (test code = Hct) 24.3 36.0-48.[address] [facility] HospitalIhcoauoKOXTOPMNUT4261-95-41 01:19:00 Test Item Value Reference Range Interpretation Comments RBC (test code = RBC) 3.51 4.20-5.[address] [facility] HospitalJhpqunlGJPCLVNWBG0615-67-94 01:19:00 Test Item Value Reference Range Interpretation Comments Hgb (test code = Hgb) 7.2 12.0-16.[address] [facility] HospitalLmpbpwwBMENJDWHFR8938-24-45 01:19:00 Test Item Value Reference Range Interpretation Comments Platelet (test code = Platelet) 298 133-[address] [facility] HospitalRtvkjxxWUIQETVWAA6156-88-51 01:19:00 Test Item Value Reference Range Interpretation Comments MCHC (test code = MCHC) 29.5 32.0-36.[address] [facility] HospitalBoxhclsMKIZGXZITG2333-09-08 01:19:00 Test Item Value Reference Range Interpretation Comments INR (test code = INR) 0.92 0.85-1.[address] [facility] HospitalBrbjrgeZOJJLDLAAQ2893-61-79 01:19:00 Test Item Value Reference Range Interpretation Comments PT (test code = PT) 12.4 s 12.0-14.[address] [facility] HospitalOighqprZXFYBEOPRZ6523-36-99 01:19:00 Test Item Value Reference Range Interpretation Comments Segs-Bands # (test code = Segs-Bands #) 4.8 1.5-8.[address] [facility] HospitalTqrrwyfAMAIRFWOTC5685-70-25 01:19:00 Test Item Value Reference Range Interpretation Comments Lymphocytes # (test code = Lymphocytes 0.9 1.0-5.5 #) [facility] HospitalWwayitcHDKOXRBUFP4377-51-03 01:19:00 Test Item Value Reference Range Interpretation Comments Monocytes # (test code 0.6 See_Comment [Aut omated message] The = Monocytes #) system which generated this result tra nsmitted reference range : <=0.8. The reference r pascual was not used to int erpret this result as normal/abnormal . [facility] HospitalTlamrhmLNTKTFXZDG2931-21-25 01:19:00 Test Item Value Reference Range Interpretation Comments Hypochrom (test code = 1+ (09/06/17 8:19 PM) Hypochrom) [facility] HospitalCpvvvpuPAESJDPTLB8754-40-56 01:19:00 Test Item Value Reference Range Interpretation Comments Anisocyte (test code = 1+ *ABN*(09/06/17 Anisocyte) 8:19 PM) [facility] HospitalXesfdzdVIJIRYOQGQ7684-06-04 01:19:00 Test Item Value Reference Range Interpretation Comments Microcyte (test code = 2+ *ABN*(09/06/17 Microcyte) 8:19 PM) [facility] HospitalAnpkzhhZOWIWRURYP7156-51-87 01:19:00 Test Item Value Reference Range Interpretation Comments Eosinophils # (test code 0.1 See_Comment [A utomated message] The = Eosinophils #) system [facility] h generated this result tra nsmitted reference range : <=0.5. The reference r pascual was not used to int erpret this result as normal/abnormal . [facility] HospitalFacxixoCQVHYNUXYM7128-60-03 01:19:00 Test Item Value Reference Range Interpretation Comments Segs (test code = Segs) 74.1 45.0-75.[address] [facility] HospitalHfbclkiFZCZOTOLWQ9158-29-31 01:19:00 Test Item Value Reference Range Interpretation Comments Lymphocytes (test code = Lymphocytes) 13.9 20.0-40.[address] [facility] HospitalUponrslGDUUEMHRUT7872-88-66 01:19:00 Test Item Value Reference Range Interpretation Comments Plt Morph (test code = Normal (09/06/17 8:19 Plt Morph) PM) [facility] HospitalLzhdvrvOSVPCMWRDW7090-40-44 01:19:00 Test Item Value Reference Range Interpretation Comments Monocytes (test code = Monocytes) 9.1 2.0-12.[address] [facility] HospitalEitrqdyTPBBDIBDEA1106-88-49 01:19:00 Test Item Value Reference Range Interpretation Comments Eosinophils (test code = 2.3 See_Comment [A utomated message] The Eosinophils) system which ge nerated this result tra nsmitted reference range : <=4.0. The reference r pascual was not used to int erpret this result as normal/abnormal . [facility] HospitalOeqwfpzMXFPDPVJZP2564-52-04 01:19:00 Test Item Value Reference Range Interpretation Comments Basophils (test code = 0.6 See_Comment [Aut omated message] The Basophils) system which ge nerated this result tra nsmitted reference range : <=1.0. The reference r pascual was not used to int erpret this result as normal/abnormal . [facility] HospitalXjajmhkUZVPQYCENXGY6591-61-42 01:19:00 Test Item Value Reference Range Interpretation Comments AGAP (test code = AGAP) 12.8 10.0-20.0 [facility] HospitalIwidcnrPFWVTENCCBVL9233-09-90 01:19:00 Test Item Value Reference Range Interpretation Comments eGFR (test code = eGFR) 59 [facility] HospitalJwlkddgTTEMJMNEOSEI8042-71-95 01:19:00 Test Item Value Reference Range Interpretation Comments Glucose Lvl (test code = Glucose Lvl) 93 70-99 [facility] HospitalHluceuyFMWBOMCRGWTH5484-52-93 01:19:00 Test Item Value Reference Range Interpretation Comments Potassium Lvl (test code = Potassium 3.8 3.5-5.1 Lvl) [facility] HospitalVoqzeszPWEZOTYFKDMJ4391-14-36 01:19:00 Test Item Value Reference Range Interpretation Comments Sodium Lvl (test code = Sodium Lvl) 137 135-145 [facility] HospitalKecrdnzLPKQSRJVNDBR1249-30-94 01:19:00 Test Item Value Reference Range Interpretation Comments Creatinine Lvl (test code = Creatinine 1.00 0.50-1.40 Lvl) [facility] HospitalJnpmmgdZDYQFVYHPOJL1902-90-82 01:19:00 Test Item Value Reference Range Interpretation Comments BUN (test code = BUN) 11 7-22 [facility] HospitalNlscohoOIBLJJVNTDYU6743-66-20 01:19:00 Test Item Value Reference Range Interpretation Comments Calcium Lvl (test code = Calcium Lvl) 8.6 8.5-10.5 [facility] HospitalXprrgauTEYHGAIVKAIQ4811-27-05 01:19:00 Test Item Value Reference Range Interpretation Comments CO2 (test code = CO2) 24 24-32 [facility] HospitalLmahixtRFQWPTDVFHZG4705-48-79 01:19:00 Test Item Value Reference Range Interpretation Comments Chloride Lvl (test code = Chloride Lvl) 104 95-[address] [facility] HospitalJnpzjzpBJXYVANGGM7040-87-16 01:19:00 Test Item Value Reference Range Interpretation Comments PTT (test code = PTT) 38.7 s 22.9-35.[address] [facility] HospitalZtnzqtuWYWVRWLWHP0677-75-96 01:19:00 Test Item Value Reference Range Interpretation Comments MPV (test code = MPV) 6.9 7.4-10.[address] [facility] HospitalKdljlekNYVHGGYBRW5813-62-31 01:19:00 Test Item Value Reference Range Interpretation Comments WBC (test code = WBC) 6.5 3.7-10.[address] [facility] HospitalLkfgkldIGTCXVVKUP8522-51-41 01:19:00 Test Item Value Reference Range Interpretation Comments RDW (test code = RDW) 25.2 11.5-14.[address] [facility] HospitalBhbgbkrCUZAPITIBD0558-71-60 01:19:00 Test Item Value Reference Range Interpretation Comments MCV (test code = MCV) 69.4 80.0-98.[address] [facility] HospitalWqgpmwpKELYEVPSYP1537-24-82 01:19:00 Test Item Value Reference Range Interpretation Comments MCH (test code = MCH) 20.4 pg 27.0-31.[address] [facility] HospitalTiwkcbbLSUADQIGQL3486-59-19 01:19:00 Test Item Value Reference Range Interpretation Comments Hct (test code = Hct) 24.3 36.0-48.[address] [facility] HospitalYgvhftfSEIDQFMALR6595-63-45 01:19:00 Test Item Value Reference Range Interpretation Comments RBC (test code = RBC) 3.51 4.20-5.[address] [facility] HospitalHclmhwhDOMXEWALNR1938-52-26 01:19:00 Test Item Value Reference Range Interpretation Comments Hgb (test code = Hgb) 7.2 12.0-16.[address] [facility] HospitalVweixxfAINUKZOTSM3445-89-94 01:19:00 Test Item Value Reference Range Interpretation Comments Platelet (test code = Platelet) 298 133-[address] [facility] HospitalZlzoscbFMDIULDYRQ6827-45-97 01:19:00 Test Item Value Reference Range Interpretation Comments MCHC (test code = MCHC) 29.5 32.0-36.[address] [facility] HospitalXojdddjELVOIFFKXJ3549-23-75 01:19:00 Test Item Value Reference Range Interpretation Comments INR (test code = INR) 0.92 0.85-1.[address] [facility] HospitalMcfqusxESOVJYPVXF5537-67-10 01:19:00 Test Item Value Reference Range Interpretation Comments PT (test code = PT) 12.4 s 12.0-14.[address] [facility] HospitalZccsjysCWUYPYJYMO6010-31-14 01:19:00 Test Item Value Reference Range Interpretation Comments Segs-Bands # (test code = Segs-Bands #) 4.8 1.5-8.[address] [facility] HospitalBdeqjlvEEQNWASOSX5748-48-56 01:19:00 Test Item Value Reference Range Interpretation Comments Lymphocytes # (test code = Lymphocytes 0.9 1.0-5.5 #) [facility] HospitalZtqunbfTWLWCSNIBT6368-18-55 01:19:00 Test Item Value Reference Range Interpretation Comments Monocytes # (test code 0.6 See_Comment [Aut omated message] The = Monocytes #) system which generated this result tra nsmitted reference range : <=0.8. The reference r pascual was not used to int erpret this result as normal/abnormal . [facility] HospitalNyjhvmwFPBLJGIFCM4394-27-63 01:19:00 Test Item Value Reference Range Interpretation Comments Hypochrom (test code = 1+ (09/06/17 8:19 PM) Hypochrom) [facility] HospitalEmuswvxXZPGMTDDJB1013-15-61 01:19:00 Test Item Value Reference Range Interpretation Comments Anisocyte (test code = 1+ *ABN*(09/06/17 Anisocyte) 8:19 PM) [facility] HospitalIfkehnbKUSJQRRETL7299-82-78 01:19:00 Test Item Value Reference Range Interpretation Comments Microcyte (test code = 2+ *ABN*(09/06/17 Microcyte) 8:19 PM) [facility] HospitalCafjsyzMQSTGPOZIV9137-97-12 01:19:00 Test Item Value Reference Range Interpretation Comments Eosinophils # (test code 0.1 See_Comment [A utomated message] The = Eosinophils #) system whic h generated this result tra nsmitted reference range : <=0.5. The reference r pascual was not used to int erpret this result as normal/abnormal . [facility] HospitalWneyxdyYITHPIXCPE6254-40-66 01:19:00 Test Item Value Reference Range Interpretation Comments Segs (test code = Segs) 74.1 45.0-75.[address] [facility] HospitalYrfkqbxMDDEICUFNB4834-24-73 01:19:00 Test Item Value Reference Range Interpretation Comments Lymphocytes (test code = Lymphocytes) 13.9 20.0-40.[address] [facility] HospitalPgbritdQAWSKFUGCX5324-91-87 01:19:00 Test Item Value Reference Range Interpretation Comments Plt Morph (test code = Normal (09/06/17 8:19 Plt Morph) PM) [facility] HospitalVwpvnvuBPQOLFRUFK4758-08-61 01:19:00 Test Item Value Reference Range Interpretation Comments Monocytes (test code = Monocytes) 9.1 2.0-12.[address] [facility] HospitalGlpasviOPIRXMSCYC9533-34-22 01:19:00 Test Item Value Reference Range Interpretation Comments Eosinophils (test code = 2.3 See_Comment [A utomated message] The Eosinophils) system which ge nerated this result tra nsmitted reference range : <=4.0. The reference r pascual was not used to int erpret this result as normal/abnormal . [facility] HospitalMdalfkrPYOZLJLIRT5207-23-86 01:19:00 Test Item Value Reference Range Interpretation Comments Basophils (test code = 0.6 See_Comment [Aut omated message] The Basophils) system which ge nerated this result tra nsmitted reference range : <=1.0. The reference r pascual was not used to int erpret this result as normal/abnormal . [facility] HospitalTfpjpdiXFFXWQCXOYNA2412-49-31 01:19:00 Test Item Value Reference Range Interpretation Comments AGAP (test code = AGAP) 12.8 10.0-20.0 [facility] HospitalGnuquqsEDAGXYVFOWUP2299-17-14 01:19:00 Test Item Value Reference Range Interpretation Comments eGFR (test code = eGFR) 59 [facility] HospitalIkmwggqDUKNUQUAKMYV8478-97-17 01:19:00 Test Item Value Reference Range Interpretation Comments Glucose Lvl (test code = Glucose Lvl) 93 70-99 [facility] HospitalUgypiecEHCYWLWWGESB0851-60-32 01:19:00 Test Item Value Reference Range Interpretation Comments Potassium Lvl (test code = Potassium 3.8 3.5-5.1 Lvl) [facility] HospitalTzgcbqkRIVKYBOBIKTJ3068-79-82 01:19:00 Test Item Value Reference Range Interpretation Comments Sodium Lvl (test code = Sodium Lvl) 137 135-145 [facility] HospitalJzmcqqaEVGZCZMIIMWM4430-81-56 01:19:00 Test Item Value Reference Range Interpretation Comments Creatinine Lvl (test code = Creatinine 1.00 0.50-1.40 Lvl) [facility] HospitalVsnzwugKSVODGDMXYNQ1127-73-55 01:19:00 Test Item Value Reference Range Interpretation Comments BUN (test code = BUN) 11 7-22 [facility] HospitalEzjncakJBUUCSVDJOHA4823-44-58 01:19:00 Test Item Value Reference Range Interpretation Comments Calcium Lvl (test code = Calcium Lvl) 8.6 8.5-10.5 [facility] HospitalAztjuapQMTTSFNDRBLQ1380-42-86 01:19:00 Test Item Value Reference Range Interpretation Comments CO2 (test code = CO2) 24 24-32 [facility] HospitalThmlljpJVPWINPSNFTR1903-09-64 01:19:00 Test Item Value Reference Range Interpretation Comments Chloride Lvl (test code = Chloride Lvl) 104 95-[address] [facility] HospitalKzcsbjhHFBKQAXEYY1396-97-76 01:19:00 Test Item Value Reference Range Interpretation Comments PTT (test code = PTT) 38.7 s 22.9-35.[address] [facility] HospitalBjblkeoICURGAEZST9603-82-41 01:19:00 Test Item Value Reference Range Interpretation Comments MPV (test code = MPV) 6.9 7.4-10.[address] [facility] HospitalIvihoqwPUKLTYWXCO2215-84-71 01:19:00 Test Item Value Reference Range Interpretation Comments WBC (test code = WBC) 6.5 3.7-10.[address] [facility] HospitalKbsiehjMPXTIUVYIT9654-51-82 01:19:00 Test Item Value Reference Range Interpretation Comments RDW (test code = RDW) 25.2 11.5-14.[address] [facility] HospitalTyadnehUIAUPHTQAV0500-16-74 01:19:00 Test Item Value Reference Range Interpretation Comments MCV (test code = MCV) 69.4 80.0-98.[address] [facility] HospitalJqetqqrKEUNAMCOOQ6270-50-25 01:19:00 Test Item Value Reference Range Interpretation Comments MCH (test code = MCH) 20.4 pg 27.0-31.[address] [facility] HospitalMxqosmfSXUGHYVOKY9217-95-79 01:19:00 Test Item Value Reference Range Interpretation Comments Hct (test code = Hct) 24.3 36.0-48.[address] [facility] HospitalQavyiljWHQHZRGJJE9906-59-17 01:19:00 Test Item Value Reference Range Interpretation Comments RBC (test code = RBC) 3.51 4.20-5.[address] [facility] HospitalVcpibjtIHZWMJOYYE9458-08-67 01:19:00 Test Item Value Reference Range Interpretation Comments Hgb (test code = Hgb) 7.2 12.0-16.[address] [facility] HospitalSrdoehlHYNNBRZXBA6939-53-38 01:19:00 Test Item Value Reference Range Interpretation Comments Platelet (test code = Platelet) 298 133-[address] [facility] HospitalYzpfrjoFIWAIOEGXQ6979-73-39 01:19:00 Test Item Value Reference Range Interpretation Comments MCHC (test code = MCHC) 29.5 32.0-36.[address] [facility] HospitalRbtaoxxXDXCMRSMMO6311-52-35 01:19:00 Test Item Value Reference Range Interpretation Comments INR (test code = INR) 0.92 0.85-1.[address] [facility] HospitalHaxkznmSTFAUFKFWM9710-59-25 01:19:00 Test Item Value Reference Range Interpretation Comments PT (test code = PT) 12.4 s 12.0-14.[address] [facility] HospitalAxiysmwXAAIYWMWFO0949-20-62 01:19:00 Test Item Value Reference Range Interpretation Comments Segs-Bands # (test code = Segs-Bands #) 4.8 1.5-8.[address] [facility] HospitalBqbibmgEWSLGSJWKN1617-96-33 01:19:00 Test Item Value Reference Range Interpretation Comments Lymphocytes # (test code = Lymphocytes 0.9 1.0-5.5 #) [facility] HospitalUberikgUUAMHNETAF9797-59-22 01:19:00 Test Item Value Reference Range Interpretation Comments Monocytes # (test code 0.6 See_Comment [Aut omated message] The = Monocytes #) system which generated this result tra nsmitted reference range : <=0.8. The reference r pascual was not used to int erpret this result as normal/abnormal . [facility] HospitalNuldtdaJLQUZZCCRU8531-50-55 01:19:00 Test Item Value Reference Range Interpretation Comments Hypochrom (test code = 1+ (09/06/17 8:19 PM) Hypochrom) [facility] HospitalOhrueaaGMSQKZVBFG7243-43-77 01:19:00 Test Item Value Reference Range Interpretation Comments Anisocyte (test code = 1+ *ABN*(09/06/17 Anisocyte) 8:19 PM) [facility] HospitalNyzhsnoXEJZWXFOSB7198-40-06 01:19:00 Test Item Value Reference Range Interpretation Comments Microcyte (test code = 2+ *ABN*(09/06/17 Microcyte) 8:19 PM) [facility] HospitalLyhrxveSFQLMQCHMF8757-14-31 01:19:00 Test Item Value Reference Range Interpretation Comments Eosinophils # (test code 0.1 See_Comment [A utomated message] The = Eosinophils #) system whic h generated this result tra nsmitted reference range : <=0.5. The reference r pascual was not used to int erpret this result as normal/abnormal . [facility] HospitalWyedjuqPVCIWBIWII8559-83-62 01:19:00 Test Item Value Reference Range Interpretation Comments Segs (test code = Segs) 74.1 45.0-75.[address] [facility] HospitalLvwscjwRSJOVTWALJ8732-42-28 01:19:00 Test Item Value Reference Range Interpretation Comments Lymphocytes (test code = Lymphocytes) 13.9 20.0-40.[address] [facility] HospitalYbjmqgbQYGCGOYXCZ9678-89-33 01:19:00 Test Item Value Reference Range Interpretation Comments Plt Morph (test code = Normal (09/06/17 8:19 Plt Morph) PM) [facility] HospitalUwwnqbmKILQTRIVQC1235-85-80 01:19:00 Test Item Value Reference Range Interpretation Comments Monocytes (test code = Monocytes) 9.1 2.0-12.[address] [facility] HospitalOwxsopiBUAAZIBPMS6764-26-34 01:19:00 Test Item Value Reference Range Interpretation Comments Eosinophils (test code = 2.3 See_Comment [A utomated message] The Eosinophils) system which ge nerated this result tra nsmitted reference range : <=4.0. The reference r pascual was not used to int erpret this result as normal/abnormal . [facility] HospitalPjmnlxqXZFGRLXGVT2391-05-51 01:19:00 Test Item Value Reference Range Interpretation Comments Basophils (test code = 0.6 See_Comment [Aut omated message] The Basophils) system which ge nerated this result tra nsmitted reference range : <=1.0. The reference r pascual was not used to int erpret this result as normal/abnormal . [facility] HospitalNujqpaaJCNDPJJNUZFD4028-01-71 01:19:00 Test Item Value Reference Range Interpretation Comments AGAP (test code = AGAP) 12.8 10.0-20.0 [facility] HospitalGyxafyzVHHZNIYOUSDF2173-06-73 01:19:00 Test Item Value Reference Range Interpretation Comments eGFR (test code = eGFR) 59 [facility] HospitalDkbmshaSTNHWHCMJEOU2306-77-19 01:19:00 Test Item Value Reference Range Interpretation Comments Glucose Lvl (test code = Glucose Lvl) 93 70-99 [facility] HospitalFtsedhfZLVVVUEEKIHB3194-16-01 01:19:00 Test Item Value Reference Range Interpretation Comments Potassium Lvl (test code = Potassium 3.8 3.5-5.1 Lvl) [facility] HospitalQykmficJUORIMIOEAHD7210-10-24 01:19:00 Test Item Value Reference Range Interpretation Comments Sodium Lvl (test code = Sodium Lvl) 137 135-145 [facility] [facility]OPKQD[facility]25[facility]94 01:19:00 Test Item Value Reference Range Interpretation Comments Creatinine Lvl (test code = Creatinine 1.00 0.50-1.40 Lvl) [facility]KlqitsuDCUXIBXBMDVV5812-07-66 01:19:00 Test Item Value Reference Range Interpretation Comments BUN (test code = BUN) 11 7-22 [facility] HospitalAxeiyoeFGWKNTDLGNLK6603-15-65 01:19:00 Test Item Value Reference Range Interpretation Comments Calcium Lvl (test code = Calcium Lvl) 8.6 8.5-10.5 [facility] HospitalOoqcxbpNRGBYZDAPZNY4876-13-28 01:19:00 Test Item Value Reference Range Interpretation Comments CO2 (test code = CO2) 24 24-32 [facility] HospitalJvuzikhMIGXEZKDKHOH6764-37-46 01:19:00 Test Item Value Reference Range Interpretation Comments Chloride Lvl (test code = Chloride Lvl) 104 95-[address] [facility]cezccwJSSSZJMMUI5914-81-07 01:19:00 Test Item Value Reference Range Interpretation Comments PTT (test code = PTT) 38.7 s 22.9-35.[address] [facility] HospitalGydmibfCCSUMRUPLD7482-54-57 01:19:00 Test Item Value Reference Range Interpretation Comments MPV (test code = MPV) 6.9 7.4-10.[address] [facility]MkiozjdHQYDUDCTNS4367-26-57 01:19:00 Test Item Value Reference Range Interpretation Comments WBC (test code = WBC) 6.5 3.7-10.[address] [facility] HospitalZlyrrcmQTEANKRHXE9905-16-91 01:19:00 Test Item Value Reference Range Interpretation Comments RDW (test code = RDW) 25.2 11.5-14.[address] [facility] HospitalKuvcsleLMSACACPDG6707-49-32 01:19:00 Test Item Value Reference Range Interpretation Comments MCV (test code = MCV) 69.4 80.0-98.[address] [facility] HospitalXzsstglUTOBKOZHOK6009-90-66 01:19:00 Test Item Value Reference Range Interpretation Comments MCH (test code = MCH) 20.4 pg 27.0-31.[address] [facility] HospitalEooxoduIGRNGKKQEQ0723-82-54 01:19:00 Test Item Value Reference Range Interpretation Comments Hct (test code = Hct) 24.3 36.0-48.[address] [facility] HospitalWuoqskeMVUOAVHXNN9677-69-52 01:19:00 Test Item Value Reference Range Interpretation Comments RBC (test code = RBC) 3.51 4.20-5.[address] [facility] HospitalKnzrqxcQAKZPDQFPW8919-86-96 01:19:00 Test Item Value Reference Range Interpretation Comments Hgb (test code = Hgb) 7.2 12.0-16.[address] [facility] HospitalBgnpfzaMZGXNTADLW9796-59-83 01:19:00 Test Item Value Reference Range Interpretation Comments Platelet (test code = Platelet) 298 133-[address] [facility] HospitalSqmwrbwVHKIPMZWOU7521-19-37 01:19:00 Test Item Value Reference Range Interpretation Comments MCHC (test code = MCHC) 29.5 32.0-36.[address] [facility] HospitalNykchihRMVMIOXQYM8791-20-09 01:19:00 Test Item Value Reference Range Interpretation Comments INR (test code = INR) 0.92 0.85-1.[address] [facility] HospitalJzporzjJHUSSWQOBJ7345-96-27 01:19:00 Test Item Value Reference Range Interpretation Comments PT (test code = PT) 12.4 s 12.0-14.[address] [facility] HospitalGwpbygmHCKPRDQSMQ1691-97-97 01:19:00 Test Item Value Reference Range Interpretation Comments Segs-Bands # (test code = Segs-Bands #) 4.8 1.5-8.[address] [facility] HospitalTmyvyzwFLSKUJIQZE9651-23-33 01:19:00 Test Item Value Reference Range Interpretation Comments Lymphocytes # (test code = Lymphocytes 0.9 1.0-5.5 #) [facility] HospitalNkmvfyrJVJHIEEVVA3867-40-69 01:19:00 Test Item Value Reference Range Interpretation Comments Monocytes # (test code 0.6 See_Comment [Aut omated message] The = Monocytes #) system which generated this result tra nsmitted reference range : <=0.8. The reference r pascual was not used to int erpret this result as normal/abnormal . [facility] HospitalYnhzrytEBIFZJCTWA6414-08-84 01:19:00 Test Item Value Reference Range Interpretation Comments Hypochrom (test code = 1+ (09/06/17 8:19 PM) Hypochrom) [facility] HospitalIcrlvcbVWPWWYNQNA9756-14-65 01:19:00 Test Item Value Reference Range Interpretation Comments Anisocyte (test code = 1+ *ABN*(09/06/17 Anisocyte) 8:19 PM) [facility] HospitalHizjgbqSQSVFRFYWM6724-00-53 01:19:00 Test Item Value Reference Range Interpretation Comments Microcyte (test code = 2+ *ABN*(09/06/17 Microcyte) 8:19 PM) [facility] HospitalPtqwcfdJWPOEXXASQ8929-58-99 01:19:00 Test Item Value Reference Range Interpretation Comments Eosinophils # (test code 0.1 See_Comment [A utomated message] The = Eosinophils #) system whic h generated this result tra nsmitted reference range : <=0.5. The reference r pascual was not used to int erpret this result as normal/abnormal . [facility] HospitalWmydeylMXZBTMUBGC7020-38-16 01:19:00 Test Item Value Reference Range Interpretation Comments Segs (test code = Segs) 74.1 45.0-75.[address] [facility] HospitalFraevbgUVRDNQVWZO1673-21-61 01:19:00 Test Item Value Reference Range Interpretation Comments Lymphocytes (test code = Lymphocytes) 13.9 20.0-40.[address] [facility] HospitalWummyypRSBHIAORMM6639-07-64 01:19:00 Test Item Value Reference Range Interpretation Comments Plt Morph (test code = Normal (09/06/17 8:19 Plt Morph) PM) [facility] HospitalDmkcqniIXBHGEXUSA8579-50-10 01:19:00 Test Item Value Reference Range Interpretation Comments Monocytes (test code = Monocytes) 9.1 2.0-12.[address] [facility] HospitalSybwsvqKYOQHITJUQ6081-72-66 01:19:00 Test Item Value Reference Range Interpretation Comments Eosinophils (test code = 2.3 See_Comment [A utomated message] The Eosinophils) system which ge nerated this result tra nsmitted reference range : <=4.0. The reference r pascual was not used to int erpret this result as normal/abnormal . [facility] HospitalMjbnkxlCEQBVQMYEQ5254-58-19 01:19:00 Test Item Value Reference Range Interpretation Comments Basophils (test code = 0.6 See_Comment [Aut omated message] The Basophils) system which ge nerated this result tra nsmitted reference range : <=1.0. The reference r pascual was not used to int erpret this result as normal/abnormal . [facility] HospitalLzfaojjPOJDOWCKORRT0390-82-69 01:19:00 Test Item Value Reference Range Interpretation Comments AGAP (test code = AGAP) 12.8 10.0-20.0 [facility] HospitalEyaihoqPEEAJOJLNEKI3096-61-21 01:19:00 Test Item Value Reference Range Interpretation Comments eGFR (test code = eGFR) 59 [facility] HospitalHxhrmmiJGPOKGOCLACH4053-80-53 01:19:00 Test Item Value Reference Range Interpretation Comments Glucose Lvl (test code = Glucose Lvl) 93 70-99 [facility] HospitalQwqshfaQDBDCICJUYCY5588-69-62 01:19:00 Test Item Value Reference Range Interpretation Comments Potassium Lvl (test code = Potassium 3.8 3.5-5.1 Lvl) [facility] HospitalZnvluljTQYKOYJROTNR7050-43-51 01:19:00 Test Item Value Reference Range Interpretation Comments Sodium Lvl (test code = Sodium Lvl) 137 135-145 [facility] HospitalMnfpguhMPDNLYDUKIFL6618-74-41 01:19:00 Test Item Value Reference Range Interpretation Comments Creatinine Lvl (test code = Creatinine 1.00 0.50-1.40 Lvl) [facility] HospitalQbrbmipFYPONUIDMVKW0042-57-40 01:19:00 Test Item Value Reference Range Interpretation Comments BUN (test code = BUN) 11 7-22 [facility] HospitalWhdengsQTTHVJRLOAMQ8676-01-07 01:19:00 Test Item Value Reference Range Interpretation Comments Calcium Lvl (test code = Calcium Lvl) 8.6 8.5-10.5 [facility] HospitalCvxqubwXFZMOOCGBSEL3329-60-91 01:19:00 Test Item Value Reference Range Interpretation Comments CO2 (test code = CO2) 24 24-32 [facility]QcqlpzdTSUKJWEKYDPE9914-47-22 01:19:00 Test Item Value Reference Range Interpretation Comments Chloride Lvl (test code = Chloride Lvl) 104 95-[address] [facility] HospitalJdkjyhwPHGHBKCETY1967-44-18 01:19:00 Test Item Value Reference Range Interpretation Comments PTT (test code = PTT) 38.7 s 22.9-35.[address] [facility] HospitalLcwzlkmXZLMCDFYFC6549-11-06 01:19:00 Test Item Value Reference Range Interpretation Comments MPV (test code = MPV) 6.9 7.4-10.[address] [facility] HospitalUmmtmfkKZXTVFVDNT8660-15-02 01:19:00 Test Item Value Reference Range Interpretation Comments WBC (test code = WBC) 6.5 3.7-10.[address] [facility] HospitalEbdzyniUATMLBJFWU9452-49-52 01:19:00 Test Item Value Reference Range Interpretation Comments RDW (test code = RDW) 25.2 11.5-14.[address] [facility] HospitalNqzynjdAATTJKLHYD0428-59-16 01:19:00 Test Item Value Reference Range Interpretation Comments MCV (test code = MCV) 69.4 80.0-98.[address] [facility] HospitalMgtqblnEGGGLFUAII8144-83-68 01:19:00 Test Item Value Reference Range Interpretation Comments MCH (test code = MCH) 20.4 pg 27.0-31.[address] [facility] HospitalRkxgsztGENITEOYXH6004-22-39 01:19:00 Test Item Value Reference Range Interpretation Comments Hct (test code = Hct) 24.3 36.0-48.[address] [facility] HospitalZdhabyhXAUZJXWSWT7930-44-88 01:19:00 Test Item Value Reference Range Interpretation Comments RBC (test code = RBC) 3.51 4.20-5.[address] [facility] HospitalPboclpaWRKENLEBRG1935-80-23 01:19:00 Test Item Value Reference Range Interpretation Comments Hgb (test code = Hgb) 7.2 12.0-16.[address] [facility] HospitalYyafspgNSATRVEAKY9512-14-98 01:19:00 Test Item Value Reference Range Interpretation Comments Platelet (test code = Platelet) 298 133-[address] [facility] HospitalIbezqjsTVPJPFEVWP5064-38-73 01:19:00 Test Item Value Reference Range Interpretation Comments MCHC (test code = MCHC) 29.5 32.0-36.[address] [facility] HospitalKpascwrHKKFDYUUHV9204-22-82 01:19:00 Test Item Value Reference Range Interpretation Comments INR (test code = INR) 0.92 0.85-1.[address] [facility] HospitalWphbvqeSPJKUXJJAW4481-72-45 01:19:00 Test Item Value Reference Range Interpretation Comments PT (test code = PT) 12.4 s 12.0-14.[address] [facility] HospitalFvuunfrCCIERNYLHA8539-92-19 01:19:00 Test Item Value Reference Range Interpretation Comments Segs-Bands # (test code = Segs-Bands #) 4.8 1.5-8.[address] [facility] HospitalPxtdzsvLCDNFXWHUQ2348-10-18 01:19:00 Test Item Value Reference Range Interpretation Comments Lymphocytes # (test code = Lymphocytes 0.9 1.0-5.5 #) [facility] HospitalMxhrlxuFGOSBINJAS7306-19-29 01:19:00 Test Item Value Reference Range Interpretation Comments Monocytes # (test code 0.6 See_Comment [Aut omated message] The = Monocytes #) system which generated this result tra nsmitted reference range : <=0.8. The reference r pascual was not used to int erpret this result as normal/abnormal . [facility] HospitalJvqxdqaHWOVFDCAHI3534-55-51 01:19:00 Test Item Value Reference Range Interpretation Comments Hypochrom (test code = 1+ (09/06/17 8:19 PM) Hypochrom) [facility] HospitalXgrlpckWZQLDJQCCL7210-72-20 01:19:00 Test Item Value Reference Range Interpretation Comments Anisocyte (test code = 1+ *ABN*(09/06/17 Anisocyte) 8:19 PM) [facility] HospitalTtkjomsMUPQRFCLDY1705-12-81 01:19:00 Test Item Value Reference Range Interpretation Comments Microcyte (test code = 2+ *ABN*(09/06/17 Microcyte) 8:19 PM) [facility] HospitalBnavbvlQDCYXIQTES4845-40-10 01:19:00 Test Item Value Reference Range Interpretation Comments Eosinophils # (test code 0.1 See_Comment [A utomated message] The = Eosinophils #) system whic h generated this result tra nsmitted reference range : <=0.5. The reference r pascual was not used to int erpret this result as normal/abnormal . [facility] HospitalUvqackbBYZIKVVBUE5467-47-55 01:19:00 Test Item Value Reference Range Interpretation Comments Segs (test code = Segs) 74.1 45.0-75.[address] [facility] HospitalRyjxjeaHLMWEMEMXC7666-89-63 01:19:00 Test Item Value Reference Range Interpretation Comments Lymphocytes (test code = Lymphocytes) 13.9 20.0-40.[address] [facility] HospitalOpcrsccVHUFIXALYL2671-72-98 01:19:00 Test Item Value Reference Range Interpretation Comments Plt Morph (test code = Normal (09/06/17 8:19 Plt Morph) PM) [facility] HospitalXxfhdybMDFWVPYJBR3836-43-04 01:19:00 Test Item Value Reference Range Interpretation Comments Monocytes (test code = Monocytes) 9.1 2.0-12.[address] [facility] HospitalGymcoarAZREITLQOV1542-56-30 01:19:00 Test Item Value Reference Range Interpretation Comments Eosinophils (test code = 2.3 See_Comment [A utomated message] The Eosinophils) system which ge nerated this result tra nsmitted reference range : <=4.0. The reference r pascual was not used to int erpret this result as normal/abnormal . [facility] HospitalDouiazhHEEEKUAARR1243-54-95 01:19:00 Test Item Value Reference Range Interpretation Comments Basophils (test code = 0.6 See_Comment [Aut omated message] The Basophils) system which ge nerated this result tra nsmitted reference range : <=1.0. The reference r pascual was not used to int erpret this result as normal/abnormal . [facility] GvojsnuCRMOKBZFQNDB6826-24-18 01:19:0012.8[facility] 2017-[facility]-07 01:19:0059[facility] HwytjryASCBFVURCXEX2133-48-02 01:19:0093[facility] QeanccgMAACENHFTUEV6602-14-45 01:19:003.8[facility] RgiojwySZUSJQVMSFXC1573-55-02 01:19:25803Ggbdeuid JadowncWSCEBOWUDHFQ8717-47-72 01:19:001.00[facility] LBGXVLSWEWIM2287-46-50 01:19:0011[facility] VsnxzwzQTLBNVNWZHGP2564-97-80 01:19:00 8.6[facility] JhomatxPEPVEGZHXCCN7292-26-25 01:19:0024[facility]ELECTROLYTES 2017-09-07 01:19:09720Glrcgiju LpunzupYCYZDPSCDP2034-54-27 01:19:00 Test Item Value Reference Range Interpretation Comments PTT (test code = PTT) 38.7 s 22.9-35.8 [facility] SrrpcbcBMHKGOLJSZ5037-00-55 01:19:006.9[facility]annHEMATOLOGY 2017-09-07 01:19:006.5[facility] OyderxkJAPKKOOOHZ6010-42-27 01:19:0025.2[facility] VubulixNCTZCMNAWB6441-07-79 01:19:0069.4[facility] QwmtoiiAEHVBDVPNO8196-69-33 01:19:00 Test Item Value Reference Range Interpretation Comments MCH (test code = MCH) 20.4 pg 27.0-31.0 [facility] RficmciXFLKWAVBUV4633-01-52 01:19:0024.3[facility]annHEMATOLOGY 2017-09-07 01:19:003.51[facility] HsqallzFSPBQIFGQF2133-28-22 01:19:007.2[facility] ScvxifrDABJUVGLMX6704-17-42 01:19:87001Munwqlss DoqwuznIWVALKGBQQ8615-93-86 01:19:0029.5[facility] ExrdkwkDMONTYTHVB8935-79-45 01:19:000.92[facility] DNCSRQJJQJ9920-85-35 01:19:00 Test Item Value Reference Range Interpretation Comments PT (test code = PT) 12.4 s 12.0-14.7 [facility] MedgitfZNUNWDVVEE7297-33-46 01:19:004.8[facility]annHEMATOLOGY 2017-09-07 01:19:000.9[facility] RfuvovrDATXMKELOV7058-81-40 01:19:000.6[facility] CwydtdjIKVTYJKFXL5480-27-39 01:19:001+ (09/06/17 8:19 PM)[facility] HWWMPIWDKW0526-26-70 01:19:001+ *ABN*(09/06/17 8:19 PM)[facility] 2017-09-07 01:19:002+ *ABN*(09/06/17 8:19 PM)[facility] HkrkvcsZJUVAKQMZW4466-98-40 01:19:000.1[facility] IfrtmjqTECFOBATHG3779-40-90 01:19:0074.1[facility] NQUZVRIEAD6071-64-94 01:19:0013.9[facility] GvcymqnUIGRGFRZGA3520-92-13 01:19:00 Normal (09/06/17 8:19 PM)[facility] UqhzopkGGNBTXTJOZ7678-57-67 01:19:009.1[facility] GivfbuqSSENQEZGIT3469-99-55 01:19:002.3[facility] JpsphhgEBCYJUZUBH5801-88-48 01:19:000.6[facility] WmrdynyEDKEQAUXICIM6815-74-25 01:19:0012.8[facility] QFQRCJPHUBFX2017-57-95 01:19:0059[facility] VfppdmqHFAAECFQQMRJ1742-03-54 01:19:00 93[facility] SfhsriwVGYRFTBMIAYI0760-17-47 01:19:003.8[facility]annELECTROLYTES 2017-09-07 01:19:91245Kksmnxfl JzgrdpfOLGAXNWIFVUY7682-26-18 01:19:001.00 [facility] ImoxrwlVFWFMLFISIWT5623-55-34 01:19:0011[facility]LECT[facility]OLYTES 2017-09-07 01:19:008.6[facility] NitkfoqHLAVOTBUFTED0905-09-38 01:19:0024[facility] VqbwpmyBJBNLROSOLVL7561-89-46 01:19:59414Rvmvojfd JueoigcTBUIPICPXC9845-40-46 01:19:00 Test Item Value Reference Range Interpretation Comments PTT (test code = PTT) 38.7 s 22.9-35.8 [facility] YeihefvMILEKEEPKC9453-22-59 01:19:006.9[facility]HE[facility]OLOGY 2017-09-07 01:19:006.5[facility] SuczgdsUMWURYDNAR4119-01-22 01:19:0025.2[facility] HkicnusMLPSZQCAKJ2109-30-97 01:19:0069.4[facility] CoawudwBVXWGYYAVI1669-36-85 01:19:00 Test Item Value Reference Range Interpretation Comments MCH (test code = MCH) 20.4 pg 27.0-31.0 [facility] JqgiixiLOESQXMWGT0466-43-83 01:19:0024.3[facility]HE[facility]OLOGY 2017-09-07 01:19:003.51[facility] MiuzoviFASAKPVEGK1763-61-97 01:19:007.2[facility] VmarzflQHWCZTICFV1232-72-73 01:19:40671Gyorgcpr TelmyexJNJALDXTND0826-72-39 01:19:0029.5[facility] DribdzrMPLMXWQEHT1348-58-12 01:19:000.92[facility] DALZAYOOVJ3655-96-28 01:19:00 Test Item Value Reference Range Interpretation Comments PT (test code = PT) 12.4 s 12.0-14.7 [facility] PqhozfqVBKIWWUZHQ4556-20-82 01:19:004.8[facility]HE[facility]OLOGY 2017-09-07 01:19:000.9[facility] HwcetxeCHLEOFTXQD2222-91-34 01:19:000.6[facility] JgjndphTITPVVSRGE4241-45-45 01:19:001+ (09/06/17 8:19 PM)[facility] BFQTWTXZAH1811-61-61 01:19:001+ *ABN*(09/06/17 8:19 PM)[facility] 2017-09-07 01:19:002+ *ABN*(09/06/17 8:19 PM)[facility] YtrykymXINIVVTJGU8874-89-31 01:19:000.1[facility] ChsowneMNPMVYCNHM8618-75-82 01:19:0074.1[facility] HUCZBASOUM6284-09-18 01:19:0013.9[facility] PnuvfsxRLWLODBXSJ1598-20-32 01:19:00 Normal (09/06/17 8:19 PM)[facility] KldbicoEECKZSNRLF6231-33-56 01:19:009.1[facility] YftdqnmUYBYIMKSRB4188-44-69 01:19:002.3[facility] VqgxaxsBDTVWYNTQH6847-38-91 01:19:000.6[facility] HunyyldPNLPXECHIKZH4463-57-76 01:19:0012.8[facility] CCOCVFQLYKJQ8681-04-61 01:19:0059[facility] QrpubstFZDWVJFPIFGV0335-90-86 01:19:00 93[facility] OewykuqKSGVDHWFKKEY7606-02-85 01:19:003.8[facility]annELECTROLYTES 2017-09-07 01:19:35567Jczkuvat CrbzfjtSJXRYUASQKOU7592-35-75 01:19:001.00 [facility] PffqkifTVKYDUEWJOWF9276-04-72 01:19:0011[facility] 2017-09-07 01:19:008.6[facility] LgersbbBYZSJAHKSDCH7194-44-18 01:19:0024[facility] NfulzuyUQPQIDASCKEN9893-33-38 01:19:15104Abzmhtus WnkmoqoWDCVDHXDYA8481-14-64 01:19:00 Test Item Value Reference Range Interpretation Comments PTT (test code = PTT) 38.7 s 22.9-35.8 [facility] BiffjsbNBWOSHTWYK7577-44-02 01:19:006.9[facility] 2017-09-07 01:19:006.5[facility] BmqkirdPUPVPSFMWG0458-57-03 01:19:0025.2[facility] RgodsnhQZJXPNFDFJ1261-76-37 01:19:0069.4[facility] OurgjscYFADTBMZNO3733-19-37 01:19:00 Test Item Value Reference Range Interpretation Comments MCH (test code = MCH) 20.4 pg 27.0-31.0 [facility] YjnthilFKHDHAZHEA2465-02-20 01:19:0024.3[facility] 2017-09-07 01:19:003.51[facility] LtyibewXQVKGBDLKJ3805-65-23 01:19:007.2[facility] TatjlhaIFYYHYTRIN0025-54-63 01:19:02133Srdqkjdt OqkrughHPWMJYMKHI6648-55-71 01:19:0029.5[facility] ApfzsakMRCSRCVSJG5099-01-09 01:19:000.92[facility] NGGGKKOTUX3755-50-02 01:19:00 Test Item Value Reference Range Interpretation Comments PT (test code = PT) 12.4 s 12.0-14.7 [facility] RltqjvmSDBEPLLOWP6114-58-02 01:19:004.8[facility] 2017-09-07 01:19:000.9[facility] LqqnpclHJFSVGFETS4699-04-94 01:19:000.6[facility] YrthscnWGFZVLPPBT8210-02-55 01:19:001+ (09/06/17 8:19 PM)[facility] YMEKIGOPUJ5191-92-26 01:19:001+ *ABN*(09/06/17 8:19 PM)[facility]07 01:19:002+ *ABN*(09/06/17 8:19 PM)[facility]HuanbnuQHZRQSFBZM4050-39-46 01:19:000.1[facility] IipmegaOYUNYYRAIE3028-99-03 01:19:0074.1[facility] CWJAKKEGYR5673-34-67 01:19:0013.9[facility] FykbzjzDMECNJJPCD2419-47-33 01:19:00 Normal (09/06/17 8:19 PM)[facility]MxalzrgLECBHIFRMR8080-55-18 01:19:009.1[facility] MjucybfVOFOCIKMNQ4575-60-67 01:19:002.3[facility] HtweswfOOBSRMBSPE1349-42-92 01:19:000.6[facility] DgcdzejDWPGRQFEKRHE3508-77-95 01:19:00 Test Item Value Reference Range Interpretation Comments AGAP (test code = AGAP) 12.8 10.0-20.0 [facility]TggfbejWCCAKZVQATDZ5709-26-70 01:19:00 Test Item Value Reference Range Interpretation Comments eGFR (test code = eGFR) 59 [facility]GcvonzgVDZJYORWKJMK6198-98-22 01:19:00 Test Item Value Reference Range Interpretation Comments Glucose Lvl (test code = Glucose Lvl) 93 70-99 [facility]WxhymfoHTIMQQPUIJAI5775-01-81 01:19:00 Test Item Value Reference Range Interpretation Comments Potassium Lvl (test code = Potassium 3.8 3.5-5.1 Lvl) [facility]GaaodnyBHFKKXLHPQPY0696-53-28 01:19:00 Test Item Value Reference Range Interpretation Comments Sodium Lvl (test code = Sodium Lvl) 137 135-145 [facility] NortheastNfskkntKCYVAYYRVGTV5090-33-73 01:19:00 Test Item Value Reference Range Interpretation Comments Creatinine Lvl (test code = Creatinine 1.00 0.50-1.40 Lvl) [facility]LjnnscjTCOCIYLYOEOB4150-84-35 01:19:00 Test Item Value Reference Range Interpretation Comments BUN (test code = BUN) 11 7-22 [facility] HospitalRhftczuUPYOXJKOMPCB6396-08-88 01:19:00 Test Item Value Reference Range Interpretation Comments Calcium Lvl (test code = Calcium Lvl) 8.6 8.5-10.5 [facility] HospitalCstkasmPOTDBQLZOARA3431-37-47 01:19:00 Test Item Value Reference Range Interpretation Comments CO2 (test code = CO2) 24 24-32 [facility] HospitalKpnlbwsDXLJDOUTMCTA1885-00-89 01:19:00 Test Item Value Reference Range Interpretation Comments Chloride Lvl (test code = Chloride Lvl) 104 95-[address] [facility]ZtkovdyNCHTLOVFCG3290-59-57 01:19:00 Test Item Value Reference Range Interpretation Comments PTT (test code = PTT) 38.7 [address] 22.9-35.[address] [facility] HospitalMdacxcxYJZGIALDVQ6424-51-22 01:19:00 Test Item Value Reference Range Interpretation Comments MPV (test code = MPV) 6.9 7.4-10.[address] [facility] HospitalEudrkouHLBBHAMHLC1853-73-88 01:19:00 Test Item Value Reference Range Interpretation Comments WBC (test code = WBC) 6.5 3.7-10.[address] [facility]NfjdkujUPHJYTMREW3611-35-20 01:19:00 Test Item Value Reference Range Interpretation Comments RDW (test code = RDW) 25.2 11.5-14.[address] [facility]UlrlfclESWIMXEVUD8951-37-62 01:19:00 Test Item Value Reference Range Interpretation Comments MCV (test code = MCV) 69.4 80.0-98.[address] [facility] HospitalBjbiovlQIUEOYWNOH4376-44-93 01:19:00 Test Item Value Reference Range Interpretation Comments MCH (test code = MCH) 20.4 pg 27.0-31.[address] [facility] HospitalMliaipwGFPOVWMVHG3631-20-48 01:19:00 Test Item Value Reference Range Interpretation Comments Hct (test code = Hct) 24.3 36.0-48.0 [facility] HospitalUeswkcjBXARFXNYWIEA1398-38-92 01:19:00 Test Item Value Reference Range Interpretation Comments AGAP (test code = AGAP) 12.8 10.0-20.[address] HospitalAxrdpopIZSLZLPKET1783-36-24 01:19:00 Test Item Value Reference Range Interpretation Comments RBC (test code = RBC) 3.51 4.20-5.40 [facility] HospitalEkrmnmyJZLSIUWHRIGM2469-03-98 01:19:00 Test Item Value Reference Range Interpretation Comments eGFR (test code = eGFR) [address] [facility]QjxnkfpMOWIVAEBOY5920-97-56 01:19:00 Test Item Value Reference Range Interpretation Comments Hgb (test code = Hgb) 7.2 12.0-16.0 [facility]IlwkzmfQBUDEDKPUPFW0771-54-36 01:19:00 Test Item Value Reference Range Interpretation Comments Glucose Lvl (test code = Glucose Lvl) 93 70-[address] [facility]RoqkcdmXFYFHQNMFF2862-38-01 01:19:00 Test Item Value Reference Range Interpretation Comments Platelet (test code = Platelet) 298 133-450 [facility] HospitalGysxntgAMEVBEHTZTQF9927-25-07 01:19:00 Test Item Value Reference Range Interpretation Comments Potassium Lvl (test code = Potassium 3.8 3.5-5.1 Lvl) [facility]okrccpDRCGJGDPEU7333-81-72 01:19:00 Test Item Value Reference Range Interpretation Comments MCHC (test code = MCHC) 29.5 32.0-36.0 [facility] HospitalClnlinbUYJJDXLIZLUS8718-84-41 01:19:00 Test Item Value Reference Range Interpretation Comments Sodium Lvl (test code = Sodium Lvl) 137 135-[address] [facility]ScveuyzVAWQWZAPXK2604-23-04 01:19:00 Test Item Value Reference Range Interpretation Comments INR (test code = INR) 0.92 0.85-1.17 [facility] HospitalCfoutcpVJIZCNZTSMFT6930-83-88 01:19:00 Test Item Value Reference Range Interpretation Comments Creatinine Lvl (test code = Creatinine 1.00 0.50-1.40 Lvl) [facility]WttayzbZCLJCAZICS1863-05-42 01:19:00 Test Item Value Reference Range Interpretation Comments PT (test code = PT) 12.4 s 12.0-14.7 [facility] HospitalDocpvidVYGUXESILGDV8609-21-50 01:19:00 Test Item Value Reference Range Interpretation Comments BUN (test code = BUN) 11 7-[address] [facility]OnqyarrMHRSSYVWHY1173-63-32 01:19:00 Test Item Value Reference Range Interpretation Comments Segs-Bands # (test code = Segs-Bands #) 4.8 1.5-8.1 [facility]ChyerexLAYQMVWCNANX9056-83-89 01:19:00 Test Item Value Reference Range Interpretation Comments Calcium Lvl (test code = Calcium Lvl) 8.6 8.5-10.[address] [facility]CvmroouNEZIFOWABX4866-39-75 01:19:00 Test Item Value Reference Range Interpretation Comments Lymphocytes # (test code = Lymphocytes 0.9 1.0-5.5 #) [facility]PzuyghzJMRKMSOHIGWK0603-53-31 01:19:00 Test Item Value Reference Range Interpretation Comments CO2 (test code = CO2) 24 24-[address] [facility]UmcpxxwHBKJYWXDEB6576-17-91 01:19:00 Test Item Value Reference Range Interpretation Comments Monocytes # (test code 0.6 See_Comment [Aut omated message] The = Monocytes #) system which generated this result tra nsmitted reference range : <=0.8. The reference r pascual was not used to int erpret this result as normal/abnormal . [facility] HospitalVrpybokVQXAAZVNMVQG6956-97-30 01:19:00 Test Item Value Reference Range Interpretation Comments Chloride Lvl (test code = Chloride Lvl) 104 95-[address] [facility] HospitalRgqhascSHTOXABRPZ4327-36-30 01:19:00 Test Item Value Reference Range Interpretation Comments Hypochrom (test code = 1+ (09/06/17 8:19 PM) Hypochrom) [facility] HospitalVyaunqhTGANJTRBUI3968-05-58 01:19:00 Test Item Value Reference Range Interpretation Comments PTT (test code = PTT) 38.7 s 22.9-35.[address] [facility] HospitalVavplkhDZBQVEZYKR9325-29-01 01:19:00 Test Item Value Reference Range Interpretation Comments Anisocyte (test code = 1+ *ABN*(09/06/17 Anisocyte) 8:19 PM) [facility] HospitalOooqltvVVZHCKOFTC4230-29-26 01:19:00 Test Item Value Reference Range Interpretation Comments MPV (test code = MPV) 6.9 7.4-10.[address] [facility] HospitalBazgaecGYHLZEUNXO1107-36-88 01:19:00 Test Item Value Reference Range Interpretation Comments Microcyte (test code = 2+ *ABN*(09/06/17 Microcyte) 8:19 PM) [facility] HospitalRwhfsnpVEICPKKSDZ3915-95-62 01:19:00 Test Item Value Reference Range Interpretation Comments WBC (test code = WBC) 6.5 3.7-10.[address] [facility] HospitalSgalvieRPFQBTBLCE8710-12-09 01:19:00 Test Item Value Reference Range Interpretation Comments Eosinophils # (test code 0.1 See_Comment [A utomated message] The = Eosinophils #) system whic h generated this result tra nsmitted reference range : <=0.5. The reference r pascual was not used to int erpret this result as normal/abnormal . [facility] HospitalZztgbowFMQBDFGLFA5958-11-77 01:19:00 Test Item Value Reference Range Interpretation Comments RDW (test code = RDW) 25.2 11.5-14.[address] [facility] HospitalDamkkjzIOBAHINIZO7689-80-71 01:19:00 Test Item Value Reference Range Interpretation Comments Segs (test code = Segs) 74.1 45.0-75.[address] [facility] HospitalGgnfwjuSYRXWCQVZV4579-98-76 01:19:00 Test Item Value Reference Range Interpretation Comments MCV (test code = MCV) 69.4 80.0-98.[address] [facility] HospitalCcxlfakVGFBWAHKBD7490-46-55 01:19:00 Test Item Value Reference Range Interpretation Comments Lymphocytes (test code = Lymphocytes) 13.9 20.0-40.[address] [facility] HospitalVgsoprbWNYCQLJIOJ2583-29-36 01:19:00 Test Item Value Reference Range Interpretation Comments MCH (test code = MCH) 20.4 pg 27.0-31.[address] [facility] HospitalSgyxijdNFNVCZPJYW0501-74-01 01:19:00 Test Item Value Reference Range Interpretation Comments Plt Morph (test code = Normal (09/06/17 8:19 Plt Morph) PM) [facility] HospitalCrqxlcpHTZLHPNRMG3899-53-50 01:19:00 Test Item Value Reference Range Interpretation Comments Hct (test code = Hct) 24.3 36.0-48.[address] [facility] HospitalByjvmlqOVKFHBLQDY5196-64-03 01:19:00 Test Item Value Reference Range Interpretation Comments Monocytes (test code = Monocytes) 9.1 2.0-12.[address] [facility] HospitalIvagdszMSVEBOVDZM3520-81-05 01:19:00 Test Item Value Reference Range Interpretation Comments RBC (test code = RBC) 3.51 4.20-5.[address] [facility] HospitalYlvidhjYXZXOZDUCV3309-42-97 01:19:00 Test Item Value Reference Range Interpretation Comments Eosinophils (test code = 2.3 See_Comment [A utomated message] The Eosinophils) system which ge nerated this result tra nsmitted reference range : <=4.0. The reference r pascual was not used to int erpret this result as normal/abnormal . [facility] HospitalSavertzUNJOKAUKPX6383-40-66 01:19:00 Test Item Value Reference Range Interpretation Comments Hgb (test code = Hgb) 7.2 12.0-16.[address] [facility] HospitalEtxoakzGKRKJOUETY0942-08-76 01:19:00 Test Item Value Reference Range Interpretation Comments Basophils (test code = 0.6 See_Comment [Aut omated message] The Basophils) system which ge nerated this result tra nsmitted reference range : <=1.0. The reference r pascual was not used to int erpret this result as normal/abnormal . [facility] HospitalBcjcjqrZROQRFBHNT4459-93-16 01:19:00 Test Item Value Reference Range Interpretation Comments Platelet (test code = Platelet) 298 133-[address] [facility] HospitalJpvlytoTYJRAXFTAH5735-63-04 01:19:00 Test Item Value Reference Range Interpretation Comments MCHC (test code = MCHC) 29.5 32.0-36.[address] [facility] HospitalCnnbeukBFBARDTPJE4712-23-62 01:19:00 Test Item Value Reference Range Interpretation Comments INR (test code = INR) 0.92 0.85-1.[address] [facility] HospitalSzpoemkGYPLWQEMTY2619-65-04 01:19:00 Test Item Value Reference Range Interpretation Comments PT (test code = PT) 12.4 s 12.0-14.[address] [facility] HospitalKlyzpdpGKLGNDLVNQ1465-49-50 01:19:00 Test Item Value Reference Range Interpretation Comments Segs-Bands # (test code = Segs-Bands #) 4.8 1.5-8.[address] [facility] HospitalQsqhxxdWCXCPVUTPK6216-30-02 01:19:00 Test Item Value Reference Range Interpretation Comments Lymphocytes # (test code = Lymphocytes 0.9 1.0-5.5 #) [facility] HospitalXsxtphjKAPYSRCPOC8561-42-55 01:19:00 Test Item Value Reference Range Interpretation Comments Monocytes # (test code 0.6 See_Comment [Aut omated message] The = Monocytes #) system which generated this result tra nsmitted reference range : <=0.8. The reference r pascual was not used to int erpret this result as normal/abnormal . [facility] HospitalGpnclsnOYBKULXCGC4186-75-16 01:19:00 Test Item Value Reference Range Interpretation Comments Hypochrom (test code = 1+ (09/06/17 8:19 PM) Hypochrom) [facility] HospitalQkfcwlmGGSDOEXXOF6314-33-21 01:19:00 Test Item Value Reference Range Interpretation Comments Anisocyte (test code = 1+ *ABN*(09/06/17 Anisocyte) 8:19 PM) [facility] HospitalPhbizemVDVDTMQKDC9679-77-38 01:19:00 Test Item Value Reference Range Interpretation Comments Microcyte (test code = 2+ *ABN*(09/06/17 Microcyte) 8:19 PM) [facility] HospitalMejfeyvZYDMEAMRZU1031-59-07 01:19:00 Test Item Value Reference Range Interpretation Comments Eosinophils # (test code 0.1 See_Comment [A utomated message] The = Eosinophils #) system whic h generated this result tra nsmitted reference range : <=0.5. The reference r pascual was not used to int erpret this result as normal/abnormal . [facility] HospitalUrlvzvrISLIDGBOIT3307-56-66 01:19:00 Test Item Value Reference Range Interpretation Comments Segs (test code = Segs) 74.1 45.0-75.[address] [facility] HospitalNmzcpbcHNOGMEFMYY9979-70-13 01:19:00 Test Item Value Reference Range Interpretation Comments Lymphocytes (test code = Lymphocytes) 13.9 20.0-40.[address] [facility] HospitalXouxsdoKWBMYWLSFQ4250-21-61 01:19:00 Test Item Value Reference Range Interpretation Comments Plt Morph (test code = Normal (09/06/17 8:19 Plt Morph) PM) [facility] HospitalTwwrhhpNJYSVEEMSN5665-89-74 01:19:00 Test Item Value Reference Range Interpretation Comments Monocytes (test code = Monocytes) 9.1 2.0-12.[address] [facility] HospitalIydpwauAODHSZSIAB1366-31-00 01:19:00 Test Item Value Reference Range Interpretation Comments Eosinophils (test code = 2.3 See_Comment [A utomated message] The Eosinophils) system which ge nerated this result tra nsmitted reference range : <=4.0. The reference r pascual was not used to int erpret this result as normal/abnormal . [facility] RqtrvtuLROZMEECWA8549-81-43 01:19:00 Test Item Value Reference Range Interpretation Comments Basophils (test code = 0.6 See_Comment [Aut omated message] The Basophils) system which ge nerated this result tra nsmitted reference range : <=1.0. The reference r pascual was not used to int erpret this result as normal/abnormal . [facility] SvqsiijIYLXAZQRGPZW2584-64-16 01:19:0012.8[facility]annELECTROLYTES 2017-09-07 01:19:0059[facility] FfbjskfGMQRTFHETOTI3609-91-10 01:19:0093[facility] DagqofpOFNOYLFRWORY4222-40-64 01:19:003.8[facility] TqupdebUZTNINHRKRQA5824-34-64 01:19:35563Bdmwhpov PatcchxPPPYOODPLYSP0442-00-95 01:19:001.00[facility] AWCVKAWXKWNQ9021-62-36 01:19:0011[facility] ElagnxeEYCPQAHHWYYE7696-98-10 01:19:00 8.6[facility] DococpiXBUCXWEQOXGO5270-90-60 01:19:0024[facility]annELECTROLYTES 2017-09-07 01:19:65564Lopqpobe AkqllblGEGDCHASAS8546-27-34 01:19:00 Test Item Value Reference Range Interpretation Comments PTT (test code = PTT) 38.7 s 22.9-35.8 [facility] HyogubdFHVLDXQYMF3266-53-71 01:19:006.9[facility]annHEMATOLOGY 2017-09-07 01:19:006.5[facility] LhkwhghMWXLOHACAA1829-05-93 01:19:0025.2[facility] XogyplvYMJOZOHEDW4818-86-02 01:19:0069.4[facility] UklllxeYXJMKSJQNU8461-12-73 01:19:00 Test Item Value Reference Range Interpretation Comments MCH (test code = MCH) 20.4 pg 27.0-31.0 [facility] XgcejgxHSAZHGXJPA6664-36-74 01:19:0024.3[facility]annHEMATOLOGY 2017-09-07 01:19:003.51[facility] KxbswocTIGNAOVMXZ0367-45-13 01:19:007.2[facility] FxlamtwLEDZSSUCIT7089-89-16 01:19:86335Zwamrpfs OykyzjpWDXNKMSVNZ9327-72-89 01:19:0029.5[facility] DjpkfgnFBXYYFIHMM2826-31-75 01:19:000.92[facility] [place] YCRASUNZCG5510-64-71 01:19:00 Test Item Value Reference Range Interpretation Comments PT (test code = PT) 12.4 s 12.0-14.7 [facility] HdnlaasIEJKZCPOPB5005-74-99 01:19:004.8[facility]annHEMATOLOGY 2017-09-07 01:19:000.9[facility] CzmbplyMCWITLFPNX8437-09-58 01:19:000.6[facility] RybhdahAHWGCOBMAQ1831-68-14 01:19:001+ (09/06/17 8:19 PM)[facility] [place] ZUBJTDGMZY2729-89-57 01:19:001+ *ABN*(09/06/17 8:19 PM)[facility]annHEMATOLOGY 2017-09-07 01:19:002+ *ABN*(09/06/17 8:19 PM)[facility] BgnrfelHBITIXRBEM6133-05-28 01:19:000.1[facility] HhwonpjPETAKLFBOY5142-48-39 01:19:0074.1[facility] HDSBUIOEWG2173-82-55 01:19:0013.9[facility] WohnbltSGVRBNQZDT2523-66-17 01:19:00 Normal (09/06/17 8:19 PM)[facility] IdsjpxjTRWIECKDZG1444-61-10 01:19:009.1[facility] PtkqyadKXNKDOJGID0719-89-71 01:19:002.3[facility] HjqyexiOKAYAGGHQH3339-22-86 01:19:000.6[facility] JohwgynCKNOAINOGS2124-44-93 09:43:00 Test Item Value Reference Range Interpretation Comments MPV (test code = MPV) 7.3 7.4-10.4 [facility] PanelqfKRIGZTNVTG8024-57-75 09:43:00 Test Item Value Reference Range Interpretation Comments MCV (test code = MCV) 86.9 80.0-98.0 [facility] CyellvkMUMJYRESOU4461-29-15 09:43:00 Test Item Value Reference Range Interpretation Comments MCH (test code = MCH) 28.6 pg 27.0-31.[address] [facility] HospitalCdrmsiqINVOJXZUZY3435-84-28 09:43:00 Test Item Value Reference Range Interpretation Comments Platelet (test code = Platelet) 308 133-[address] [facility] HospitalWkzwgsqNSKJPXNFYF3006-85-14 09:43:00 Test Item Value Reference Range Interpretation Comments RDW (test code = RDW) 16.8 11.5-14.[address] [facility] HospitalNgzcnseTGBDIMNGCL7133-12-06 09:43:00 Test Item Value Reference Range Interpretation Comments Hgb (test code = Hgb) 7.5 12.0-16.[address] [facility] HospitalHxmentbWHXVKYFYSB6455-41-26 09:43:00 Test Item Value Reference Range Interpretation Comments RBC (test code = RBC) 2.63 4.20-5.[address] [facility] HospitalOikaqzqXKPNFRRIZL0938-80-26 09:43:00 Test Item Value Reference Range Interpretation Comments Hct (test code = Hct) 22.9 36.0-48.[address] [facility] HospitalMdtatmjBTKZQPYJZN8837-77-50 09:43:00 Test Item Value Reference Range Interpretation Comments WBC (test code = WBC) 7.0 3.7-10.[address] [facility] HospitalNtyyweaOYZMIPXOUQ2435-78-91 09:43:00 Test Item Value Reference Range Interpretation Comments MCHC (test code = MCHC) 33.0 32.0-36.[address] [facility] HospitalAxcmlbzFZSRDZQPPD8823-40-67 09:43:00 Test Item Value Reference Range Interpretation Comments Eosinophils (test code = 0.1 See_Comment [A utomated message] The Eosinophils) system which ge nerated this result tra nsmitted reference range : <=4.0. The reference r pascual was not used to int erpret this result as normal/abnormal . [facility] HospitalGdlbpooBLPPPWXDBB4822-58-73 09:43:00 Test Item Value Reference Range Interpretation Comments Segs-Bands # (test code = Segs-Bands #) 5.4 1.5-8.[address] [facility] HospitalZctphgmFSCSCNXTND4928-10-79 09:43:00 Test Item Value Reference Range Interpretation Comments Basophils (test code = 0.4 See_Comment [Aut omated message] The Basophils) system which ge nerated this result tra nsmitted reference range : <=1.0. The reference r pascual was not used to int erpret this result as normal/abnormal . [facility] HospitalZyrgfrvTVLOZXCVGH2583-35-01 09:43:00 Test Item Value Reference Range Interpretation Comments Monocytes # (test code 0.8 See_Comment [Aut omated message] The = Monocytes #) system which generated this result tra nsmitted reference range : <=0.8. The reference r pascual was not used to int erpret this result as normal/abnormal . [facility] HospitalFslyqcoGUGOOLSAHQ6291-29-16 09:43:00 Test Item Value Reference Range Interpretation Comments Lymphocytes # (test code = Lymphocytes 0.9 1.0-5.5 #) [facility] HospitalEqdkicxNKNZLWFWFR2535-34-33 09:43:00 Test Item Value Reference Range Interpretation Comments Lymphocytes (test code = Lymphocytes) 12.2 20.0-40.[address] [facility] HospitalZjlzztnXBHVKHMOGI1237-22-60 09:43:00 Test Item Value Reference Range Interpretation Comments Monocytes (test code = Monocytes) 11.0 2.0-12.[address] [facility] HospitalWqrizjxQBVGRGGYQE2476-94-65 09:43:00 Test Item Value Reference Range Interpretation Comments Segs (test code = Segs) 76.3 45.0-75.[address] [facility] HospitalCeizgsuRAGCUKYXKM5442-56-93 09:43:00 Test Item Value Reference Range Interpretation Comments MPV (test code = MPV) 7.3 7.4-10.[address] [facility] HospitalEjtaoldOIFIZKITCG3453-61-06 09:43:00 Test Item Value Reference Range Interpretation Comments MCV (test code = MCV) 86.9 80.0-98.[address] [facility] HospitalRjopizwPHHSRUAOXD4415-95-18 09:43:00 Test Item Value Reference Range Interpretation Comments MCH (test code = MCH) 28.6 pg 27.0-31.[address] [facility] HospitalLiucpuiVLHRMPBCJG6510-96-71 09:43:00 Test Item Value Reference Range Interpretation Comments Platelet (test code = Platelet) 308 133-[address] [facility] HospitalPktqqscILPSXASSJZ8029-40-03 09:43:00 Test Item Value Reference Range Interpretation Comments RDW (test code = RDW) 16.8 11.5-14.[address] [facility] HospitalBucjvpoBQGPECIEME6689-78-76 09:43:00 Test Item Value Reference Range Interpretation Comments Hgb (test code = Hgb) 7.5 12.0-16.[address] [facility] HospitalYujvpnbFNSWSTTGNT6973-55-92 09:43:00 Test Item Value Reference Range Interpretation Comments RBC (test code = RBC) 2.63 4.20-5.[address] [facility] HospitalNeqcjazBODLYQRGUH3344-27-43 09:43:00 Test Item Value Reference Range Interpretation Comments Hct (test code = Hct) 22.9 36.0-48.[address] [facility] HospitalLkmugwfMUSVSNGOSR1211-29-36 09:43:00 Test Item Value Reference Range Interpretation Comments WBC (test code = WBC) 7.0 3.7-10.[address] [facility] HospitalOemfhtoIWVSXUDRQK8227-31-81 09:43:00 Test Item Value Reference Range Interpretation Comments MCHC (test code = MCHC) 33.0 32.0-36.[address] [facility] HospitalUhnhzleYBYKNINUEG1693-34-92 09:43:00 Test Item Value Reference Range Interpretation Comments Eosinophils (test code = 0.1 See_Comment [A utomated message] The Eosinophils) system which ge nerated this result tra nsmitted reference range : <=4.0. The reference r pascual was not used to int erpret this result as normal/abnormal . [facility] HospitalBeytdesJPXCWKYXVY1582-92-02 09:43:00 Test Item Value Reference Range Interpretation Comments Segs-Bands # (test code = Segs-Bands #) 5.4 1.5-8.[address] [facility] HospitalHnxyoasUIKBFBSLPK5157-86-28 09:43:00 Test Item Value Reference Range Interpretation Comments Basophils (test code = 0.4 See_Comment [Aut omated message] The Basophils) system which ge nerated this result tra nsmitted reference range : <=1.0. The reference r pascual was not used to int erpret this result as normal/abnormal . [facility] HospitalVezaolePVUQQGJBXY8301-49-21 09:43:00 Test Item Value Reference Range Interpretation Comments Monocytes # (test code 0.8 See_Comment [Aut omated message] The = Monocytes #) system which generated this result tra nsmitted reference range : <=0.8. The reference r pascual was not used to int erpret this result as normal/abnormal . [facility] HospitalAebrkeyTTOHESUZAC1240-99-69 09:43:00 Test Item Value Reference Range Interpretation Comments Lymphocytes # (test code = Lymphocytes 0.9 1.0-5.5 #) [facility] HospitalAzftzjtCDXFUNUXSV2647-46-08 09:43:00 Test Item Value Reference Range Interpretation Comments Lymphocytes (test code = Lymphocytes) 12.2 20.0-40.[address] [facility] HospitalDapngkvGYPZCZHZCN7818-61-84 09:43:00 Test Item Value Reference Range Interpretation Comments Monocytes (test code = Monocytes) 11.0 2.0-12.[address] [facility] HospitalEgibngtKRULWCOZFC6822-37-97 09:43:00 Test Item Value Reference Range Interpretation Comments Segs (test code = Segs) 76.3 45.0-75.[address] [facility] HospitalAelrihkUIPFZQEJRX3925-15-84 09:43:00 Test Item Value Reference Range Interpretation Comments MPV (test code = MPV) 7.3 7.4-10.[address] [facility] HospitalYhkucfyHGAKQTGKXZ5374-11-03 09:43:00 Test Item Value Reference Range Interpretation Comments MCV (test code = MCV) 86.9 80.0-98.[address] [facility] HospitalPlrcagmFEENZNGWVZ3817-80-75 09:43:00 Test Item Value Reference Range Interpretation Comments MCH (test code = MCH) 28.6 pg 27.0-31.[address] [facility] HospitalQqsvkngWBOUUOVDTH0629-98-31 09:43:00 Test Item Value Reference Range Interpretation Comments Platelet (test code = Platelet) 308 133-[address] [facility] HospitalXdhpyzlYNKPLLPGFH6611-14-24 09:43:00 Test Item Value Reference Range Interpretation Comments RDW (test code = RDW) 16.8 11.5-14.[address] [facility] HospitalMtmcflgOIZBUYJYYB4566-95-09 09:43:00 Test Item Value Reference Range Interpretation Comments Hgb (test code = Hgb) 7.5 12.0-16.[address] [facility] HospitalFxirreaXPOFYAVBVT0666-88-16 09:43:00 Test Item Value Reference Range Interpretation Comments RBC (test code = RBC) 2.63 4.20-5.[address] [facility] HospitalJupudgjKDPUVXHJTD6968-34-93 09:43:00 Test Item Value Reference Range Interpretation Comments Hct (test code = Hct) 22.9 36.0-48.[address] [facility] HospitalRnuhnkxGYVUKGBPKZ8507-67-48 09:43:00 Test Item Value Reference Range Interpretation Comments WBC (test code = WBC) 7.0 3.7-10.4 [place] 842427-03-31 09:43:00 Test Item Value Reference Range Interpretation Comments MCHC (test code = MCHC) 33.0 32.0-36.[address] HospitalDimmebzZYPAIYOLQV0046-78-93 09:43:00 Test Item Value Reference Range Interpretation Comments Eosinophils (test code = 0.1 See_Comment [A utomated message] The Eosinophils) system which ge nerated this result tra nsmitted reference range : <=4.0. The reference r pascual was not used to int erpret this result as normal/abnormal . [facility] HospitalKfpbyvcDPCLHNCLPQ3623-79-64 09:43:00 Test Item Value Reference Range Interpretation Comments Segs-Bands # (test code = Segs-Bands #) 5.4 1.5-8.[address] [facility] HospitalQvlbvvhAOARPYAGWJ0949-47-81 09:43:00 Test Item Value Reference Range Interpretation Comments Basophils (test code = 0.4 See_Comment [Aut omated message] The Basophils) system which ge nerated this result tra nsmitted reference range : <=1.0. The reference r pascual was not used to int erpret this result as normal/abnormal . [facility] HospitalKlurcjrTUFIVJICAM2664-53-92 09:43:00 Test Item Value Reference Range Interpretation Comments Monocytes # (test code 0.8 See_Comment [Aut omated message] The = Monocytes #) system which generated this result tra nsmitted reference range : <=0.8. The reference r pascual was not used to int erpret this result as normal/abnormal . [facility] HospitalVjbkoaoJMXIHWTIIW2386-54-15 09:43:00 Test Item Value Reference Range Interpretation Comments Lymphocytes # (test code = Lymphocytes 0.9 1.0-5.5 #) [facility] HospitalIfuxxbyALRWRAMUTQ9894-82-35 09:43:00 Test Item Value Reference Range Interpretation Comments Lymphocytes (test code = Lymphocytes) 12.2 20.0-40.[address] [facility] HospitalHonpgnkOTRWKLEMJY3814-14-52 09:43:00 Test Item Value Reference Range Interpretation Comments Monocytes (test code = Monocytes) 11.0 2.0-12.[address] [facility] HospitalGlaxjczWRBCKBONIG1023-79-34 09:43:00 Test Item Value Reference Range Interpretation Comments Segs (test code = Segs) 76.3 45.0-75.[address] [facility] HospitalZgrvqmtSMRGILKGLJ3487-93-47 09:43:00 Test Item Value Reference Range Interpretation Comments MPV (test code = MPV) 7.3 7.4-10.[address] [facility] HospitalNyoyqgzLFBDDRQIKX7821-37-72 09:43:00 Test Item Value Reference Range Interpretation Comments MCV (test code = MCV) 86.9 80.0-98.[address] [facility] HospitalGgyhrwaXYTJGMTNDR3550-83-35 09:43:00 Test Item Value Reference Range Interpretation Comments MCH (test code = MCH) 28.6 pg 27.0-31.[address] [facility] HospitalBvgnjirPHGWOFEGYG3210-35-13 09:43:00 Test Item Value Reference Range Interpretation Comments Platelet (test code = Platelet) 308 133-[address] [facility] HospitalHlnqrbrNDSRPTRMHZ2335-47-92 09:43:00 Test Item Value Reference Range Interpretation Comments RDW (test code = RDW) 16.8 11.5-14.[address] [facility] HospitalWmsbudpDGOPHHJNTH9238-26-04 09:43:00 Test Item Value Reference Range Interpretation Comments Hgb (test code = Hgb) 7.5 12.0-16.[address] [facility] HospitalJobobvvADDPVJWLMH7852-84-13 09:43:00 Test Item Value Reference Range Interpretation Comments RBC (test code = RBC) 2.63 4.20-5.[address] [facility] HospitalUcrzfvpDRDVYQQTTF7770-88-75 09:43:00 Test Item Value Reference Range Interpretation Comments Hct (test code = Hct) 22.9 36.0-48.[address] [facility] HospitalRmbusmxLJHOTGNTQA7851-49-11 09:43:00 Test Item Value Reference Range Interpretation Comments WBC (test code = WBC) 7.0 3.7-10.[address] [facility] HospitalWmiqfvyJZLCKCJDVO6164-19-14 09:43:00 Test Item Value Reference Range Interpretation Comments MCHC (test code = MCHC) 33.0 32.0-36.[address] [facility] HospitalMuveaqgSATQJFWVWG3225-91-50 09:43:00 Test Item Value Reference Range Interpretation Comments Eosinophils (test code = 0.1 See_Comment [A utomated message] The Eosinophils) system which ge nerated this result tra nsmitted reference range : <=4.0. The reference r pascual was not used to int erpret this result as normal/abnormal . [facility] HospitalBfjrwxiTWZVGXKPCS1108-12-22 09:43:00 Test Item Value Reference Range Interpretation Comments Segs-Bands # (test code = Segs-Bands #) 5.4 1.5-8.[address] [facility] HospitalFobzqhrHKBKREEMGH4593-41-56 09:43:00 Test Item Value Reference Range Interpretation Comments Basophils (test code = 0.4 See_Comment [Aut omated message] The Basophils) system which ge nerated this result tra nsmitted reference range : <=1.0. The reference r pascual was not used to int erpret this result as normal/abnormal . [facility] HospitalAflznswGJJZJOVTQB4568-92-59 09:43:00 Test Item Value Reference Range Interpretation Comments Monocytes # (test code 0.8 See_Comment [Aut omated message] The = Monocytes #) system which generated this result tra nsmitted reference range : <=0.8. The reference r pascual was not used to int erpret this result as normal/abnormal . [facility]YxotfkwKJCVTZSYJL0026-54-24 09:43:00 Test Item Value Reference Range Interpretation Comments Lymphocytes # (test code = Lymphocytes 0.9 1.0-5.5 #) [facility]DlsytavQHFYGBBHWO3305-71-88 09:43:00 Test Item Value Reference Range Interpretation Comments Lymphocytes (test code = Lymphocytes) 12.2 20.0-40.[address] [facility]TonzwtxHTELZNIWKZ9579-47-98 09:43:00 Test Item Value Reference Range Interpretation Comments Monocytes (test code = Monocytes) 11.0 2.0-12.[address] [facility]YuovvycCBPXVPPGVG5569-29-24 09:43:00 Test Item Value Reference Range Interpretation Comments Segs (test code = Segs) 76.3 45.0-75.[address] [facility]NmdtyjhVJMSEBHXUY9756-49-61 09:43:00 Test Item Value Reference Range Interpretation Comments MPV (test code = MPV) 7.3 7.4-10.[address] [facility] HospitalBgkochjHZMGLKKJOE4339-00-56 09:43:00 Test Item Value Reference Range Interpretation Comments MCV (test code = MCV) 86.9 80.0-98.[address] [facility] HospitalMjtujygLINCXZZBXC2001-46-88 09:43:00 Test Item Value Reference Range Interpretation Comments MCH (test code = MCH) 28.6 pg 27.0-31.[address] [facility] HospitalMsgxyvmYZZZIBLYPR5684-50-67 09:43:00 Test Item Value Reference Range Interpretation Comments Platelet (test code = Platelet) 308 133-[address] [facility] HospitalSdkzsezDSLXVCUGIW2319-53-07 09:43:00 Test Item Value Reference Range Interpretation Comments RDW (test code = RDW) 16.8 11.5-14.[address] [facility]XfqtbzmOKDNHGFNLG1997-53-33 09:43:00 Test Item Value Reference Range Interpretation Comments Hgb (test code = Hgb) 7.5 12.0-16.[address] [facility]KjjyeeyKYHIIDTAHD5255-48-72 09:43:00 Test Item Value Reference Range Interpretation Comments RBC (test code = RBC) 2.63 4.20-5.[address] [facility]YjxvtraRUPLMKLKEK2648-76-47 09:43:00 Test Item Value Reference Range Interpretation Comments Hct (test code = Hct) 22.9 36.0-48.[address] [facility] HospitalKlhazukHPSFLIRIPX2860-53-14 09:43:00 Test Item Value Reference Range Interpretation Comments WBC (test code = WBC) 7.0 3.7-10.[address] [facility] HospitalYnsflhbGQSEWSBHWT9162-99-11 09:43:00 Test Item Value Reference Range Interpretation Comments MCHC (test code = MCHC) 33.0 32.0-36.[address] [facility] HospitalVbkjkkoWBRRSXSHGT7215-77-78 09:43:00 Test Item Value Reference Range Interpretation Comments Eosinophils (test code = 0.1 See_Comment [A utomated message] The Eosinophils) system which ge nerated this result tra nsmitted reference range : <=4.0. The reference r pascual was not used to int erpret this result as normal/abnormal . [facility] HospitalItivmqeUMUEJCGKWC4346-23-70 09:43:00 Test Item Value Reference Range Interpretation Comments Segs-Bands # (test code = Segs-Bands #) 5.4 1.5-8.[address] [facility] HospitalGlavsmjDIAKPZRFYA2574-19-64 09:43:00 Test Item Value Reference Range Interpretation Comments Basophils (test code = 0.4 See_Comment [Aut omated message] The Basophils) system which ge nerated this result tra nsmitted reference range : <=1.0. The reference r pascual was not used to int erpret this result as normal/abnormal . [facility] HospitalVrphtfaSJTNZHICHC8917-45-58 09:43:00 Test Item Value Reference Range Interpretation Comments Monocytes # (test code 0.8 See_Comment [Aut omated message] The = Monocytes #) system which generated this result tra nsmitted reference range : <=0.8. The reference r pascual was not used to int erpret this result as normal/abnormal . [facility] HospitalLyanbcoRGXEWYBHPF6432-25-64 09:43:00 Test Item Value Reference Range Interpretation Comments Lymphocytes # (test code = Lymphocytes 0.9 1.0-5.5 #) [facility] HospitalRuigtoeNTVVXWUQJY7142-40-69 09:43:00 Test Item Value Reference Range Interpretation Comments Lymphocytes (test code = Lymphocytes) 12.2 20.0-40.[address] [facility] HospitalKebcmuiXOIDUPZSHZ2379-85-55 09:43:00 Test Item Value Reference Range Interpretation Comments Monocytes (test code = Monocytes) 11.0 2.0-12.[address] [facility] HospitalJzbgiddJBLVBCGTRV6905-93-37 09:43:00 Test Item Value Reference Range Interpretation Comments Segs (test code = Segs) 76.3 45.0-75.[address] [facility] HospitalOmkxemjCNXSLDOCJF7385-07-97 09:43:00 Test Item Value Reference Range Interpretation Comments MPV (test code = MPV) 7.3 7.4-10.[address] [facility] HospitalIducekwPKHYBDXUWK3362-59-17 09:43:00 Test Item Value Reference Range Interpretation Comments MCV (test code = MCV) 86.9 80.0-98.[address] [facility] HospitalEtzperoEHSWIWNSEW0276-38-64 09:43:00 Test Item Value Reference Range Interpretation Comments MCH (test code = MCH) 28.6 pg 27.0-31.[address] [facility] HospitalYscjcxrBFDJUTJOOK6610-31-32 09:43:00 Test Item Value Reference Range Interpretation Comments Platelet (test code = Platelet) 308 133-[address] [facility] HospitalEfduskcBLIKDOXXEZ6195-29-62 09:43:00 Test Item Value Reference Range Interpretation Comments RDW (test code = RDW) 16.8 11.5-14.[address] [facility] HospitalDricrohPJQQLLMXHP2955-75-22 09:43:00 Test Item Value Reference Range Interpretation Comments Hgb (test code = Hgb) 7.5 12.0-16.[address] [facility] HospitalVrpqcmlJGGGQVLDAG0505-93-12 09:43:00 Test Item Value Reference Range Interpretation Comments RBC (test code = RBC) 2.63 4.20-5.40 [place] 842427-03-31 09:43:00 Test Item Value Reference Range Interpretation Comments Hct (test code = Hct) 22.9 36.0-48.[address] [facility] HospitalDwwdpnbMULDZRKAZC2680-57-50 09:43:00 Test Item Value Reference Range Interpretation Comments WBC (test code = WBC) 7.0 3.7-10.[address] [facility] HospitalYnflwrwZLKWHPTMYG9888-23-22 09:43:00 Test Item Value Reference Range Interpretation Comments MCHC (test code = MCHC) 33.0 32.0-36.[address] [facility] HospitalAbhdjhnUNSCEPQAHI9287-65-53 09:43:00 Test Item Value Reference Range Interpretation Comments Eosinophils (test code = 0.1 See_Comment [A utomated message] The Eosinophils) system which ge nerated this result tra nsmitted reference range : <=4.0. The reference r pascual was not used to int erpret this result as normal/abnormal . [facility] HospitalJcbvugyIZARZGXOHB6182-17-53 09:43:00 Test Item Value Reference Range Interpretation Comments Segs-Bands # (test code = Segs-Bands #) 5.4 1.5-8.[address] [facility] HospitalXbniguaAIMRVJHCJB6512-78-97 09:43:00 Test Item Value Reference Range Interpretation Comments Basophils (test code = 0.4 See_Comment [Aut omated message] The Basophils) system which ge nerated this result tra nsmitted reference range : <=1.0. The reference r pascual was not used to int erpret this result as normal/abnormal . [facility] HospitalYsrvnzlELZNXUIGZS9888-71-45 09:43:00 Test Item Value Reference Range Interpretation Comments Monocytes # (test code 0.8 See_Comment [Aut omated message] The = Monocytes #) system which generated this result tra nsmitted reference range : <=0.8. The reference r pascual was not used to int erpret this result as normal/abnormal . [facility] HospitalTujaccrVRMWHQRKBP2816-47-52 09:43:00 Test Item Value Reference Range Interpretation Comments Lymphocytes # (test code = Lymphocytes 0.9 1.0-5.5 #) [facility] HospitalGtxzhfvEZOYMGPBXB7514-06-29 09:43:00 Test Item Value Reference Range Interpretation Comments Lymphocytes (test code = Lymphocytes) 12.2 20.0-40.[address] [facility] HospitalTtrussnWISWROMUCZ4213-03-65 09:43:00 Test Item Value Reference Range Interpretation Comments Monocytes (test code = Monocytes) 11.0 2.0-12.[address] [facility] HospitalIbrgbxvVXNGMLLBQB8072-32-72 09:43:00 Test Item Value Reference Range Interpretation Comments Segs (test code = Segs) 76.3 45.0-75.[address] [facility] HospitalEblsxiiWZVVOZFBMT3153-29-10 09:43:00 Test Item Value Reference Range Interpretation Comments MPV (test code = MPV) 7.3 7.4-10.[address] [facility] HospitalDyayfxfBQCTVMNZNB6134-09-90 09:43:00 Test Item Value Reference Range Interpretation Comments MCV (test code = MCV) 86.9 80.0-98.[address] [facility] HospitalMefaclsLXCQPJPSYE9191-70-61 09:43:00 Test Item Value Reference Range Interpretation Comments MCH (test code = MCH) 28.6 pg 27.0-31.[address] [facility] HospitalMjpnzhdIHCKNUNYJV1630-11-24 09:43:00 Test Item Value Reference Range Interpretation Comments Platelet (test code = Platelet) 308 133-[address] [facility] HospitalEitwoymSQXXOPBYHD0646-23-10 09:43:00 Test Item Value Reference Range Interpretation Comments RDW (test code = RDW) 16.8 11.5-14.[address] [facility] HospitalYjoihaeRTIVYXHUVJ0277-03-52 09:43:00 Test Item Value Reference Range Interpretation Comments Hgb (test code = Hgb) 7.5 12.0-16.[address] [facility] HospitalCgyvwkxOAYMMUEKYY5767-61-38 09:43:00 Test Item Value Reference Range Interpretation Comments RBC (test code = RBC) 2.63 4.20-5.[address] [facility] HospitalDeuifxtZJRGTGNREZ1561-69-21 09:43:00 Test Item Value Reference Range Interpretation Comments Hct (test code = Hct) 22.9 36.0-48.[address] [facility] HospitalAnvjbvqQWTWIOEUIE2978-83-88 09:43:00 Test Item Value Reference Range Interpretation Comments WBC (test code = WBC) 7.0 3.7-10.[address] [facility] HospitalKzrjnozJUXQXPXRCS9336-41-60 09:43:00 Test Item Value Reference Range Interpretation Comments MCHC (test code = MCHC) 33.0 32.0-36.[address] [facility] HospitalLyhrfyvDWPZMJWPZJ2960-86-26 09:43:00 Test Item Value Reference Range Interpretation Comments Eosinophils (test code = 0.1 See_Comment [A utomated message] The Eosinophils) system which ge nerated this result tra nsmitted reference range : <=4.0. The reference r pascual was not used to int erpret this result as normal/abnormal . [facility] HospitalWfetrdjOFVCOGFHTR9296-06-78 09:43:00 Test Item Value Reference Range Interpretation Comments Segs-Bands # (test code = Segs-Bands #) 5.4 1.5-8.[address] [facility] HospitalRxaquchAZUOSZFDFF2992-41-51 09:43:00 Test Item Value Reference Range Interpretation Comments Basophils (test code = 0.4 See_Comment [Aut omated message] The Basophils) system which ge nerated this result tra nsmitted reference range : <=1.0. The reference r pascual was not used to int erpret this result as normal/abnormal . [facility] HospitalFqgwmvnBPGVGPQLHK0939-09-72 09:43:00 Test Item Value Reference Range Interpretation Comments Monocytes # (test code 0.8 See_Comment [Aut omated message] The = Monocytes #) system which generated this result tra nsmitted reference range : <=0.8. The reference r pascual was not used to int erpret this result as normal/abnormal . [facility] HospitalOsfevhnNLFRZMFFIN1571-73-42 09:43:00 Test Item Value Reference Range Interpretation Comments Lymphocytes # (test code = Lymphocytes 0.9 1.0-5.5 #) [facility] HospitalAwmgbdtDCCJULNZOV8663-05-60 09:43:00 Test Item Value Reference Range Interpretation Comments Lymphocytes (test code = Lymphocytes) 12.2 20.0-40.[address] [facility] HospitalKmwfwbdVMWQFJCEEI4308-52-73 09:43:00 Test Item Value Reference Range Interpretation Comments Monocytes (test code = Monocytes) 11.0 2.0-12.[address] [facility] HospitalUjkgbttDQERBZVMJL2477-52-05 09:43:00 Test Item Value Reference Range Interpretation Comments Segs (test code = Segs) 76.3 45.0-75.[address] [facility] HospitalKvmckqmLGWAJAZJFK0119-32-85 09:43:00 Test Item Value Reference Range Interpretation Comments MPV (test code = MPV) 7.3 7.4-10.[address] [facility] HospitalQiccmkwWVABFYNLFN1498-80-24 09:43:00 Test Item Value Reference Range Interpretation Comments MCV (test code = MCV) 86.9 80.0-98.[address] [facility] HospitalPkiazifDZAWELTFSH9066-91-59 09:43:00 Test Item Value Reference Range Interpretation Comments MCH (test code = MCH) 28.6 pg 27.0-31.[address] [facility] HospitalItcifjjYAMIVEQDTG9828-75-44 09:43:00 Test Item Value Reference Range Interpretation Comments Platelet (test code = Platelet) 308 133-[address] [facility] HospitalDmcpqkqSNSQBJUBLW2349-16-36 09:43:00 Test Item Value Reference Range Interpretation Comments RDW (test code = RDW) 16.8 11.5-14.[address] [facility] HospitalVlhmqssQFVOMBSRBU5795-41-21 09:43:00 Test Item Value Reference Range Interpretation Comments Hgb (test code = Hgb) 7.5 12.0-16.[address] [facility] HospitalJcxteyfWKWWNOSQZU8070-56-89 09:43:00 Test Item Value Reference Range Interpretation Comments RBC (test code = RBC) 2.63 4.20-5.[address] [facility] HospitalWgckijzFBZZWEJETJ2076-79-10 09:43:00 Test Item Value Reference Range Interpretation Comments Hct (test code = Hct) 22.9 36.0-48.[address] [facility] HospitalJfvizvnKOMDKAQXVD5552-27-97 09:43:00 Test Item Value Reference Range Interpretation Comments WBC (test code = WBC) 7.0 3.7-10.[address] [facility] HospitalLkfmlwtGFEAFWIKMF5741-01-29 09:43:00 Test Item Value Reference Range Interpretation Comments MCHC (test code = MCHC) 33.0 32.0-36.[address] [facility] HospitalEhinoihBKBVRXUDNF1891-64-49 09:43:00 Test Item Value Reference Range Interpretation Comments Eosinophils (test code = 0.1 See_Comment [A utomated message] The Eosinophils) system which ge nerated this result tra nsmitted reference range : <=4.0. The reference r pascual was not used to int erpret this result as normal/abnormal . [facility] HospitalFuvmofwLBYWNYOWHY0110-18-16 09:43:00 Test Item Value Reference Range Interpretation Comments Segs-Bands # (test code = Segs-Bands #) 5.4 1.5-8.[address] [facility] HospitalYrqlxbbHVPRKIIUAQ9867-04-18 09:43:00 Test Item Value Reference Range Interpretation Comments Basophils (test code = 0.4 See_Comment [Aut omated message] The Basophils) system which ge nerated this result tra nsmitted reference range : <=1.0. The reference r pascual was not used to int erpret this result as normal/abnormal . [facility]GpemrmsFAMOFGULOU2090-39-15 09:43:00 Test Item Value Reference Range Interpretation Comments Monocytes # (test code 0.8 See_Comment [Aut omated message] The = Monocytes #) system which generated this result tra nsmitted reference range : <=0.8. The reference r pascual was not used to int erpret this result as normal/abnormal . [facility]YsnfbnkVPMQJFGWEX9744-17-63 09:43:00 Test Item Value Reference Range Interpretation Comments Lymphocytes # (test code = Lymphocytes 0.9 1.0-5.5 #) [facility]QgmjumtCLZQFVAAKW5446-16-60 09:43:00 Test Item Value Reference Range Interpretation Comments Lymphocytes (test code = Lymphocytes) 12.2 20.0-40.0 [facility]XzwsvsyYEIMQOVTDV2188-18-70 09:43:00 Test Item Value Reference Range Interpretation Comments Monocytes (test code = Monocytes) 11.0 2.0-12.0 [facility] NortheastZhjekikRICZVOLJRR1924-50-13 09:43:00 Test Item Value Reference Range Interpretation Comments Segs (test code = Segs) 76.3 45.0-75.0 [facility]GmmmyymRIHRDTWKMZ7942-62-69 09:43:[facility].3[facility] 09:43:0086.9[facility] LjoznxxISZJVXVUNC0896-76-57 09:43:00 Test Item Value Reference Range Interpretation Comments MCH (test code = MCH) 28.6 pg 27.0-31.0 [facility]DdmntnjTMDAEFLDTO6442-60-13 09:43:72104[facility] 2017-01-31 09:43:0016.8[facility] PabwlhsVHIPBUTQLM1398-95-83 09:43:007.5[facility] TmlziizHLEIIXQUQW9043-74-93 09:43:002.63[facility] MstwmblAVHJRMCHJH4057-05-06 09:43:0022.9[facility] OjhfgvoZBABNFFINS9612-31-85 09:43:007.0[facility] HXAJOUHKOV3803-44-93 09:43:0033.0[facility] QkfryfrUQMMNHYKVI9629-88-95 09:43:00 0.1[facility] WhvjziqYWOPSUJYCS8441-41-34 09:43:005.4[facility] 2017-01-31 09:43:000.4[facility] YvcnswjQDPBMLKFIW1435-99-31 09:43:000.8[facility] EpgavltBIPLXHJDBO6312-52-24 09:43:000.9[facility] DkosgflFLGVRGGMVN7894-35-49 09:43:0012.2[facility] HzqaabiOKCNCNAJTM4324-59-13 09:43:0011.0[facility] [place] QLANFCRCTC7947-87-07 09:43:0076.3[facility] NehtrhvSAOFSNLYBQ3743-28-74 09:43:00 7.3[facility] ZysxssvHEMOBFDWRS0998-76-55 09:43:0086.9[facility] 2017-01-31 09:43:00 Test Item Value Reference Range Interpretation Comments MCH (test code = MCH) 28.6 pg 27.0-31.0 [facility] MfxqhjxOGQHZWCJGQ9731-96-44 09:43:91255Mhswplje [facility]annHEMATOLOG[facility] 2017-01-31 09:43:0016.8[facility] VrvltagDPFOYMANRH8920-13-42 09:43:007.5[facility] CketmyyRDWBQICDLI6483-42-20 09:43:002.63[facility] NzcofthYANEFADZYP8780-77-37 09:43:0022.9[facility] FmfljpqBYCFADADAL1237-37-75 09:43:007.0[facility] [place] YVWTELHESE0597-47-41 09:43:0033.0[facility] BixaugpTRLKJVTLWF2614-34-46 09:43:00 0.1[facility] DjvtnluIMHUCESFQG0250-04-20 09:43:005.4[facility] 2017-01-31 09:43:000.4[facility] MjcojrcZSYHARQIFG0107-49-37 09:43:000.8[facility] FckfvyqSMUDEPDJCW2480-70-12 09:43:000.9[facility] TpyrbpzWTWHRYGYFY6052-13-27 09:43:0012.2[facility] JxgzoxdXZQQHBHTBJ9796-86-52 09:43:0011.0[facility] [place] EUPTRIIBKY1069-81-74 09:43:0076.3[facility] WhsvpnpVNXRIVBBBF8784-65-45 09:43:00 7.3[facility] AdaljrkYOFYJLYBSM5567-99-35 09:43:0086.9[facility] 2017-01-31 09:43:00 Test Item Value Reference Range Interpretation Comments MCH (test code = MCH) 28.6 pg 27.0-31.0 [facility] IvilnerYWFIVTSKUV6349-66-09 09:43:90096Davqmfwq [facility]HEMAT[facility] 2017-01-31 09:43:0016.8[facility] HeigvhdPHUDRVNBUS0603-22-52 09:43:007.5[facility] UotkqtdGERNADPRXM2063-28-14 09:43:002.63[facility] NrftkvyKEDWJWHJPA9105-94-08 09:43:0022.9[facility] WbvvrxvGQDUDGHFRM9489-41-80 09:43:007.0[facility] [place] BSXDYYCIVC0046-16-89 09:43:0033.0[facility] TtvvqkvFTONOEXRMW0693-05-06 09:43:00 0.1[facility] AffaneuNNIPFQBGMH7050-06-92 09:43:005.4[facility] 2017-01-31 09:43:000.4[facility] VchmotjFOEBNWGYJT7682-50-55 09:43:000.8[facility] GmcticzAFZURVYQKI0483-64-41 09:43:000.9[facility] UijiczbAXEKEDLYIX3792-84-97 09:43:0012.2[facility] MbvzrpqFRRESJFZUV6618-61-94 09:43:0011.0[facility] [place] ORUAVJNWCB3965-64-44 09:43:0076.3[facility] FstelccWSPYVEJCVM6705-53-85 09:43:00 Test Item Value Reference Range Interpretation Comments MPV (test code = MPV) 7.3 7.4-10.[address] [facility]UiyyyrgFPULCWCWXH5009-13-86 09:43:00 Test Item Value Reference Range Interpretation Comments MCV (test code = MCV) 86.9 80.0-98.[address] [facility] HospitalRofgyptGFPKKMPPFH8729-13-28 09:43:00 Test Item Value Reference Range Interpretation Comments MCH (test code = MCH) 28.6 pg 27.0-31.[address] [facility] HospitalIujplovBRDXWZHBXS6642-39-23 09:43:00 Test Item Value Reference Range Interpretation Comments Platelet (test code = Platelet) 308 133-[address] [facility] HospitalRqezfxxIYRJAIYYYF5684-95-38 09:43:00 Test Item Value Reference Range Interpretation Comments RDW (test code = RDW) 16.8 11.5-14.[address] [facility] HospitalAmimwgsLCEAABPBPG4073-86-11 09:43:00 Test Item Value Reference Range Interpretation Comments Hgb (test code = Hgb) 7.5 12.0-16.[address] [facility] HospitalSluvhxaOICBDICRZT0322-68-57 09:43:00 Test Item Value Reference Range Interpretation Comments RBC (test code = RBC) 2.63 4.20-5.[address] [facility] HospitalJcqpadcLZSGMMBRXP2112-27-60 09:43:00 Test Item Value Reference Range Interpretation Comments Hct (test code = Hct) 22.9 36.0-48.[address] [facility] HospitalPievkijNUHLBLASSX4922-29-03 09:43:00 Test Item Value Reference Range Interpretation Comments WBC (test code = WBC) 7.0 3.7-10.[address] [facility] HospitalHnlvavrKVGHZJXPEJ0259-62-45 09:43:00 Test Item Value Reference Range Interpretation Comments MCHC (test code = MCHC) 33.0 32.0-36.[address] [facility] HospitalZoeclnmPLJGUWPWBV5616-44-10 09:43:00 Test Item Value Reference Range Interpretation Comments Eosinophils (test code = 0.1 See_Comment [A utomated message] The Eosinophils) system which ge nerated this result tra nsmitted reference range : <=4.0. The reference r pascual was not used to int erpret this result as normal/abnormal . [facility] HospitalZveumaxSVSKALBNEA7378-10-42 09:43:00 Test Item Value Reference Range Interpretation Comments Segs-Bands # (test code = Segs-Bands #) 5.4 1.5-8.[address] [facility] HospitalAskmbxwQJPAEXGOLQ1947-93-61 09:43:00 Test Item Value Reference Range Interpretation Comments Basophils (test code = 0.4 See_Comment [Aut omated message] The Basophils) system which ge nerated this result tra nsmitted reference range : <=1.0. The reference r pascual was not used to int erpret this result as normal/abnormal . [facility] HospitalCjejmagABIPLDZQYW2878-85-36 09:43:00 Test Item Value Reference Range Interpretation Comments Monocytes # (test code 0.8 See_Comment [Aut omated message] The = Monocytes #) system which generated this result tra nsmitted reference range : <=0.8. The reference r pascual was not used to int erpret this result as normal/abnormal . [facility] HospitalOllpgiaVHINGSJBMU3277-84-70 09:43:00 Test Item Value Reference Range Interpretation Comments Lymphocytes # (test code = Lymphocytes 0.9 1.0-5.5 #) [facility] HospitalSbgjjdlZRHZCUAMLZ3450-05-92 09:43:00 Test Item Value Reference Range Interpretation Comments Lymphocytes (test code = Lymphocytes) 12.2 20.0-40.[address] [facility] HospitalZgwdcqtLFQGWFBRKI8093-17-36 09:43:00 Test Item Value Reference Range Interpretation Comments Monocytes (test code = Monocytes) 11.0 2.0-12.[address] [facility] HospitalBvvgiaqQPLIJZBOYS9438-30-80 09:43:00 Test Item Value Reference Range Interpretation Comments MPV (test code = MPV) 7.3 7.4-10.[address] [facility] HospitalDrwfwujPPKUGXYEXK3107-32-57 09:43:00 Test Item Value Reference Range Interpretation Comments Segs (test code = Segs) 76.3 45.0-75.[address] [facility] HospitalXpuydexONIAIMUBCW3221-54-24 09:43:00 Test Item Value Reference Range Interpretation Comments MCV (test code = MCV) 86.9 80.0-98.[address] [facility] HospitalTisqoqeWFRPHRPYAF4898-96-36 09:43:00 Test Item Value Reference Range Interpretation Comments MCH (test code = MCH) 28.6 pg 27.0-31.[address] [facility] HospitalSusmlnxPNOWVBQUOL6129-30-18 09:43:00 Test Item Value Reference Range Interpretation Comments Platelet (test code = Platelet) 308 133-[address] [facility] HospitalIenpklqOBDBXHNRTD0040-73-19 09:43:00 Test Item Value Reference Range Interpretation Comments RDW (test code = RDW) 16.8 11.5-14.[address] [facility] HospitalQlsndtuQNTRPYFHYI9892-65-58 09:43:00 Test Item Value Reference Range Interpretation Comments Hgb (test code = Hgb) 7.5 12.0-16.[address] [facility] HospitalQiujsgrPRDVFRVQWP0244-69-04 09:43:00 Test Item Value Reference Range Interpretation Comments RBC (test code = RBC) 2.63 4.20-5.[address] [facility] HospitalUqfosehQKCJWWHSUN5531-35-21 09:43:00 Test Item Value Reference Range Interpretation Comments Hct (test code = Hct) 22.9 36.0-48.[address] [facility] HospitalErwqrwoNVHVSDRRSW4071-37-79 09:43:00 Test Item Value Reference Range Interpretation Comments WBC (test code = WBC) 7.0 3.7-10.[address] [facility] HospitalWosnkmkFQEPQBOALE5113-66-21 09:43:00 Test Item Value Reference Range Interpretation Comments MCHC (test code = MCHC) 33.0 32.0-36.[address] [facility] HospitalPqicwiyOHWBHZWNHZ5913-44-81 09:43:00 Test Item Value Reference Range Interpretation Comments Eosinophils (test code = 0.1 See_Comment [A utomated message] The Eosinophils) system which ge nerated this result tra nsmitted reference range : <=4.0. The reference r pascual was not used to int erpret this result as normal/abnormal . [facility] HospitalIucklulHLJXDQFGNT9129-30-57 09:43:00 Test Item Value Reference Range Interpretation Comments Segs-Bands # (test code = Segs-Bands #) 5.4 1.5-8.[address] [facility] HospitalLuxmvipBLOKIQJTFK0331-48-38 09:43:00 Test Item Value Reference Range Interpretation Comments Basophils (test code = 0.4 See_Comment [Aut omated message] The Basophils) system which ge nerated this result tra nsmitted reference range : <=1.0. The reference r pascual was not used to int erpret this result as normal/abnormal . [facility]FF1409[facility]39-92 09:43:00 Test Item Value Reference Range Interpretation Comments Monocytes # (test code 0.8 See_Comment [Aut omated message] The = Monocytes #) system which generated this result tra nsmitted reference range : <=0.8. The reference r pascual was not used to int erpret this result as normal/abnormal . [facility]ugrpvXDQNXCFHRB0539-21-63 09:43:00 Test Item Value Reference Range Interpretation Comments Lymphocytes # (test code = Lymphocytes 0.9 1.0-5.5 #) [facility]AapmrivMQYUQLYNDF3685-81-23 09:43:00 Test Item Value Reference Range Interpretation Comments Lymphocytes (test code = Lymphocytes) 12.2 20.0-40.0 [facility]VejlhslTWSDOOQMMM6197-77-46 09:43:00 Test Item Value Reference Range Interpretation Comments Monocytes (test code = Monocytes) 11.0 2.0-12.0 [facility] NortheastGbbekaoFBEBOIMAIA8681-49-83 09:43:00 Test Item Value Reference Range Interpretation Comments Segs (test code = Segs) 76.3 45.0-75.0 [facility]QqkyedmVBMPIATLWV8272-19-19 09:43:[facility].3[facility] 09:43:0086.9[facility] MbmsffjAJEVJMCJPG5289-45-24 09:43:00 Test Item Value Reference Range Interpretation Comments MCH (test code = MCH) 28.6 pg 27.0-31.0 [facility] QigbdqzFZAIQDJFGC7762-86-79 09:43:79970Bkglgqlo [facility]annHEMATOLOGY 2017-01-31 09:43:0016.8[facility] TzabhxhQCQLGQJKQU6799-59-49 09:43:007.5[facility] NrtkoanILSFHYXUVG5718-20-45 09:43:002.63[facility] KpyskdrUUYAXNLIGI0775-48-69 09:43:0022.9[facility] GeulsctSDJAJHSFXS8360-84-42 09:43:007.0[facility] ZGQDNEZNFH1674-13-15 09:43:0033.0[facility] NdtexzoIISLMWLBGF6987-48-54 09:43:00 0.1[facility] YmjxjnvNLFGOFDMPZ2482-02-52 09:43:005.4[facility] 2017-01-31 09:43:000.4[facility] PchbtqeQNFOLRVZNX3167-32-64 09:43:000.8[facility] JdjjpexKYUMSNATQR7808-24-99 09:43:000.9[facility] MsdffhzIFJWDDHAGX7036-42-65 09:43:0012.2[facility] ZtpawooNRYOAXXXDA9627-52-18 09:43:0011.0[facility] BEPWOMEURM3024-02-06 09:43:0076.3[facility] NeckpzfEXKLTMGOUPKA5183-35-78 09:32:00 Test Item Value Reference Range Interpretation Comments AGAP (test code = AGAP) 16.1 10.0-20.0 [facility]BjagtpsEXGBNBACDFGU4423-44-26 09:32:00 Test Item Value Reference Range Interpretation Comments eGFR (test code = eGFR) 52 [facility] HospitalXeqodyoLGLGHXGZIMJK0178-22-81 09:32:00 Test Item Value Reference Range Interpretation Comments Chloride Lvl (test code = Chloride Lvl) 105 95-109 [facility] HospitalRmkkkqgIGZLEREBWZCJ6502-02-19 09:32:00 Test Item Value Reference Range Interpretation Comments BUN (test code = BUN) 10 7-22 [facility] HospitalPpqgjasYNGCKVBVLYKQ0163-91-78 09:32:00 Test Item Value Reference Range Interpretation Comments Creatinine Lvl (test code = Creatinine 1.10 0.50-1.40 Lvl) [facility] HospitalWclgjmiOSUYVOLPQQOY0997-13-09 09:32:00 Test Item Value Reference Range Interpretation Comments Glucose Lvl (test code = Glucose Lvl) 108 70-99 [facility] HospitalLhvdylsIBRQZDSEUPQG4690-18-70 09:32:00 Test Item Value Reference Range Interpretation Comments Calcium Lvl (test code = Calcium Lvl) 8.3 8.5-10.5 [facility] HospitalIytkqqaJDYIIEDKUSMS6110-77-17 09:32:00 Test Item Value Reference Range Interpretation Comments CO2 (test code = CO2) 26 24-32 [facility] HospitalWdenbeyMYUTSTKZRMLC1256-50-48 09:32:00 Test Item Value Reference Range Interpretation Comments Potassium Lvl (test code = Potassium 4.1 3.5-5.1 Lvl) [facility] HospitalLkzjcsoVDPBCISDUOHR7346-23-04 09:32:00 Test Item Value Reference Range Interpretation Comments Sodium Lvl (test code = Sodium Lvl) 143 135-[address] [facility] HospitalFiyflleRLBOHRCQXY0945-82-14 09:32:00 Test Item Value Reference Range Interpretation Comments RDW (test code = RDW) 17.3 11.5-14.[address] [facility]FyjqrwwXFASFGIWFA0049-49-27 09:32:00 Test Item Value Reference Range Interpretation Comments MCHC (test code = MCHC) 33.4 32.0-36.[address] [facility] HospitalJoylucgNLMRQAXRFW6336-92-02 09:32:00 Test Item Value Reference Range Interpretation Comments Platelet (test code = Platelet) 350 133-[address] [facility] HospitalSqltftgLTOHYRWPHX6493-20-91 09:32:00 Test Item Value Reference Range Interpretation Comments MPV (test code = MPV) 7.4 7.4-10.[address] [facility] HospitalHtaccqhXBCJYZCOKO2456-20-59 09:32:00 Test Item Value Reference Range Interpretation Comments MCV (test code = MCV) 86.2 80.0-98.[address] [facility] HospitalUhgemkmNPWGWQFKHT3385-82-68 09:32:00 Test Item Value Reference Range Interpretation Comments Hct (test code = Hct) 23.2 36.0-48.[address] [facility] HospitalDubxmrnOBXPDRREJE5299-34-17 09:32:00 Test Item Value Reference Range Interpretation Comments MCH (test code = MCH) 28.7 pg 27.0-31.[address] [facility] HospitalIzlaawcWBSSANXPLQ4726-22-61 09:32:00 Test Item Value Reference Range Interpretation Comments Hgb (test code = Hgb) 7.7 12.0-16.[address] [facility] HospitalQkngmzhDSHVRCJGWO5718-09-11 09:32:00 Test Item Value Reference Range Interpretation Comments RBC (test code = RBC) 2.69 4.20-5.[address] [facility] HospitalMiebibkNXSPDMYSWV6295-00-24 09:32:00 Test Item Value Reference Range Interpretation Comments WBC (test code = WBC) 9.4 3.7-10.[address] [facility] HospitalNtwxlpuFZOGULPYQK5692-84-90 09:32:00 Test Item Value Reference Range Interpretation Comments Lymphocytes # (test code = Lymphocytes 0.9 1.0-5.5 #) [facility] HospitalQgadfwlCJZHTPXJGG0927-26-56 09:32:00 Test Item Value Reference Range Interpretation Comments Monocytes # (test code 0.9 See_Comment [Aut omated message] The = Monocytes #) system which generated this result tra nsmitted reference range : <=0.8. The reference r pascual was not used to int erpret this result as normal/abnormal . [facility] HospitalBmmfefzYDBQTGCKZU6406-82-36 09:32:00 Test Item Value Reference Range Interpretation Comments Basophils (test code = 0.4 See_Comment [Aut omated message] The Basophils) system which ge nerated this result tra nsmitted reference range : <=1.0. The reference r pascual was not used to int erpret this result as normal/abnormal . [facility] HospitalMutmctyGPVEYIYWLP7197-91-50 09:32:00 Test Item Value Reference Range Interpretation Comments Segs-Bands # (test code = Segs-Bands #) 7.6 1.5-8.[address] [facility] HospitalJgguefmJDKVPRGTVZ0677-20-23 09:32:00 Test Item Value Reference Range Interpretation Comments Lymphocytes (test code = Lymphocytes) 9.3 20.0-40.[address] [facility] HospitalNawsonzTJXFFFXDFD3148-32-46 09:32:00 Test Item Value Reference Range Interpretation Comments Segs (test code = Segs) 80.7 45.0-75.[address] [facility] HospitalBpltrrpQHVNJDQNWF0152-62-47 09:32:00 Test Item Value Reference Range Interpretation Comments Monocytes (test code = Monocytes) 9.6 2.0-12.0 [facility] HospitalWtpaikuBBFVKHROGRPN6062-58-18 09:32:00 Test Item Value Reference Range Interpretation Comments AGAP (test code = AGAP) 16.1 10.0-20.0 [facility] HospitalUdrnrfuZDZMSVKCSYUU3066-93-72 09:32:00 Test Item Value Reference Range Interpretation Comments eGFR (test code = eGFR) 52 [facility] HospitalPivvctyFGBBBPKAZBPV9672-22-62 09:32:00 Test Item Value Reference Range Interpretation Comments Chloride Lvl (test code = Chloride Lvl) 105 95-109 [facility] HospitalAzkgyugQXUUBOUPQHRP5392-52-18 09:32:00 Test Item Value Reference Range Interpretation Comments BUN (test code = BUN) 10 7-22 [facility] HospitalFwxdnhyJIBQBUZYQGXZ7310-29-84 09:32:00 Test Item Value Reference Range Interpretation Comments Creatinine Lvl (test code = Creatinine 1.10 0.50-1.40 Lvl) [facility] HospitalAzkggztNIHUDVSMZGGC4812-11-54 09:32:00 Test Item Value Reference Range Interpretation Comments Glucose Lvl (test code = Glucose Lvl) 108 70-99 [facility] HospitalHlkxtauWCZYAJGUAMBL2662-61-05 09:32:00 Test Item Value Reference Range Interpretation Comments Calcium Lvl (test code = Calcium Lvl) 8.3 8.5-10.5 [facility] HospitalLypneyfHMXENCDWWIRH8662-86-54 09:32:00 Test Item Value Reference Range Interpretation Comments CO2 (test code = CO2) 26 24-32 [facility] HospitalFqytbrfLQOHEIRIZXVX6976-54-11 09:32:00 Test Item Value Reference Range Interpretation Comments Potassium Lvl (test code = Potassium 4.1 3.5-5.1 Lvl) [facility] HospitalIymnsbgHCZKZGJYRJGW1728-97-70 09:32:00 Test Item Value Reference Range Interpretation Comments Sodium Lvl (test code = Sodium Lvl) 143 135-[address] [facility]QyjbaenESYHNQTJDX2792-60-50 09:32:00 Test Item Value Reference Range Interpretation Comments RDW (test code = RDW) 17.3 11.5-14.[address] [facility] HospitalRmdkshkFZJQTHHWAH1780-41-92 09:32:00 Test Item Value Reference Range Interpretation Comments MCHC (test code = MCHC) 33.4 32.0-36.[address] [facility] HospitalGhhydsbIJPOVMZKXZ6271-35-92 09:32:00 Test Item Value Reference Range Interpretation Comments Platelet (test code = Platelet) 350 133-[address] [facility] HospitalKzatehsPCGYEWXHZW9070-62-04 09:32:00 Test Item Value Reference Range Interpretation Comments MPV (test code = MPV) 7.4 7.4-10.[address] [facility] HospitalRoleymuQXNJDCBLSZ5316-23-62 09:32:00 Test Item Value Reference Range Interpretation Comments MCV (test code = MCV) 86.2 80.0-98.[address] [facility] HospitalCzwajevGGGAYAJDDN4306-26-14 09:32:00 Test Item Value Reference Range Interpretation Comments Hct (test code = Hct) 23.2 36.0-48.[address] [facility] HospitalLwyehbtVRSIVLUSQV6912-13-57 09:32:00 Test Item Value Reference Range Interpretation Comments MCH (test code = MCH) 28.7 pg 27.0-31.[address] [facility] HospitalQoxppzkSOSAQELYDX5962-07-85 09:32:00 Test Item Value Reference Range Interpretation Comments Hgb (test code = Hgb) 7.7 12.0-16.[address] [facility] HospitalOobtyyhKGLXQDCDNY8006-07-91 09:32:00 Test Item Value Reference Range Interpretation Comments RBC (test code = RBC) 2.69 4.20-5.[address] [facility] HospitalYejshwpPIAEKSKSJO7177-45-64 09:32:00 Test Item Value Reference Range Interpretation Comments WBC (test code = WBC) 9.4 3.7-10.[address] [facility] HospitalYikeefxHIHLIGAYVA9615-76-15 09:32:00 Test Item Value Reference Range Interpretation Comments Lymphocytes # (test code = Lymphocytes 0.9 1.0-5.5 #) [facility] HospitalFzmckwdFMNBKDEWBE5356-43-04 09:32:00 Test Item Value Reference Range Interpretation Comments Monocytes # (test code 0.9 See_Comment [Aut omated message] The = Monocytes #) system which generated this result tra nsmitted reference range : <=0.8. The reference r pascual was not used to int erpret this result as normal/abnormal . [facility] HospitalPwknsfsYXJXPNJJOA3536-87-02 09:32:00 Test Item Value Reference Range Interpretation Comments Basophils (test code = 0.4 See_Comment [Aut omated message] The Basophils) system which ge nerated this result tra nsmitted reference range : <=1.0. The reference r pascual was not used to int erpret this result as normal/abnormal . [facility] HospitalYitvhicNDODHHLKVH2053-78-93 09:32:00 Test Item Value Reference Range Interpretation Comments Segs-Bands # (test code = Segs-Bands #) 7.6 1.5-8.[address] [facility] HospitalOmihmqrMNEBEYDOEI0945-87-41 09:32:00 Test Item Value Reference Range Interpretation Comments Lymphocytes (test code = Lymphocytes) 9.3 20.0-40.[address] [facility] HospitalZlneunrFSCZPYRPWQ4518-59-95 09:32:00 Test Item Value Reference Range Interpretation Comments Segs (test code = Segs) 80.7 45.0-75.[address] [facility] HospitalYckemilLXMJTWXNKQ8543-02-29 09:32:00 Test Item Value Reference Range Interpretation Comments Monocytes (test code = Monocytes) 9.6 2.0-12.0 [facility] HospitalOxzbfkhDWAYVIPCKUUG0657-08-52 09:32:00 Test Item Value Reference Range Interpretation Comments AGAP (test code = AGAP) 16.1 10.0-20.0 [facility] HospitalCngaeijRZUYZKSMLPPF7324-88-99 09:32:00 Test Item Value Reference Range Interpretation Comments eGFR (test code = eGFR) 52 [facility] HospitalBfbbpcxKQJKWRQBEANQ9308-58-85 09:32:00 Test Item Value Reference Range Interpretation Comments Chloride Lvl (test code = Chloride Lvl) 105 95-109 [facility] HospitalJnucwcdPEYIKSBGWXDA7525-55-36 09:32:00 Test Item Value Reference Range Interpretation Comments BUN (test code = BUN) 10 7-22 [facility] HospitalPhvlzjwQXHWCXIGZQRQ1462-50-43 09:32:00 Test Item Value Reference Range Interpretation Comments Creatinine Lvl (test code = Creatinine 1.10 0.50-1.40 Lvl) [facility] HospitalKfjjkczCHEHMXSDRHDS2510-94-39 09:32:00 Test Item Value Reference Range Interpretation Comments Glucose Lvl (test code = Glucose Lvl) 108 70-99 [facility] HospitalFxncijbVSCWLYIFXLBF8300-73-36 09:32:00 Test Item Value Reference Range Interpretation Comments Calcium Lvl (test code = Calcium Lvl) 8.3 8.5-10.5 [facility] HospitalRxkxopsPLPXSRSKNPHG1515-12-97 09:32:00 Test Item Value Reference Range Interpretation Comments CO2 (test code = CO2) 26 24-32 [facility] HospitalKlwmvtjXTHPPYYNDWRX3316-42-42 09:32:00 Test Item Value Reference Range Interpretation Comments Potassium Lvl (test code = Potassium 4.1 3.5-5.1 Lvl) [facility] HospitalElcffquYDMKVQRTBEHN4367-72-72 09:32:00 Test Item Value Reference Range Interpretation Comments Sodium Lvl (test code = Sodium Lvl) 143 135-[address] [facility] HospitalHtbinqaEZNWQRJHRJ6799-51-91 09:32:00 Test Item Value Reference Range Interpretation Comments RDW (test code = RDW) 17.3 11.5-14.[address] [facility] HospitalImtgstaUUPLPKRIKM1551-95-93 09:32:00 Test Item Value Reference Range Interpretation Comments MCHC (test code = MCHC) 33.4 32.0-36.[address] [facility] HospitalRlzwlggAWZBZLVXQA8394-89-49 09:32:00 Test Item Value Reference Range Interpretation Comments Platelet (test code = Platelet) 350 133-[address] [facility] HospitalTtnxxnbOTVYQNWJED8209-23-96 09:32:00 Test Item Value Reference Range Interpretation Comments MPV (test code = MPV) 7.4 7.4-10.[address] [facility] HospitalJevuuklHKISIDSCFK9008-30-57 09:32:00 Test Item Value Reference Range Interpretation Comments MCV (test code = MCV) 86.2 80.0-98.[address] [facility] HospitalBbvosstGVDCNZQNCS8092-98-83 09:32:00 Test Item Value Reference Range Interpretation Comments Hct (test code = Hct) 23.2 36.0-48.[address] [facility] HospitalMsiwkwaIXYBSSFITP5697-91-04 09:32:00 Test Item Value Reference Range Interpretation Comments MCH (test code = MCH) 28.7 pg 27.0-31.[address] [facility] HospitalXfopkbkIXMODUOSWD0502-84-52 09:32:00 Test Item Value Reference Range Interpretation Comments Hgb (test code = Hgb) 7.7 12.0-16.[address] [facility] HospitalNdlgbcdWJRBRNPKFB2320-04-58 09:32:00 Test Item Value Reference Range Interpretation Comments RBC (test code = RBC) 2.69 4.20-5.40 [place] 842427-03-29 09:32:00 Test Item Value Reference Range Interpretation Comments WBC (test code = WBC) 9.4 3.7-10.[address] [facility] HospitalIfizbekJVKABUWUXG9991-62-34 09:32:00 Test Item Value Reference Range Interpretation Comments Lymphocytes # (test code = Lymphocytes 0.9 1.0-5.5 #) [facility] HospitalDponjcmLBCCTJVSOX0372-65-08 09:32:00 Test Item Value Reference Range Interpretation Comments Monocytes # (test code 0.9 See_Comment [Aut omated message] The = Monocytes #) system which generated this result tra nsmitted reference range : <=0.8. The reference r pascual was not used to int erpret this result as normal/abnormal . [facility] HospitalYaeuyabFMSLFYTWIC8727-73-10 09:32:00 Test Item Value Reference Range Interpretation Comments Basophils (test code = 0.4 See_Comment [Aut omated message] The Basophils) system which ge nerated this result tra nsmitted reference range : <=1.0. The reference r pascual was not used to int erpret this result as normal/abnormal . [facility] HospitalOxrfwowHSECNPZGHI5138-79-79 09:32:00 Test Item Value Reference Range Interpretation Comments Segs-Bands # (test code = Segs-Bands #) 7.6 1.5-8.[address] [facility] HospitalHluchdyNZYMXVKNJU6611-76-15 09:32:00 Test Item Value Reference Range Interpretation Comments Lymphocytes (test code = Lymphocytes) 9.3 20.0-40.[address] [facility] HospitalGljyscfUEOYEKOWUC5587-80-64 09:32:00 Test Item Value Reference Range Interpretation Comments Segs (test code = Segs) 80.7 45.0-75.[address] [facility] HospitalXktctptRWFZLDKSUA6413-71-49 09:32:00 Test Item Value Reference Range Interpretation Comments Monocytes (test code = Monocytes) 9.6 2.0-12.0 [facility] HospitalEgwleekOXSGZWGRRHUH5132-64-03 09:32:00 Test Item Value Reference Range Interpretation Comments AGAP (test code = AGAP) 16.1 10.0-20.0 [facility] HospitalKjfxfrjIMLKUPAZAJWM9675-19-11 09:32:00 Test Item Value Reference Range Interpretation Comments eGFR (test code = eGFR) 52 [facility] HospitalIsvgslgCULVSGQFDHNC6839-57-37 09:32:00 Test Item Value Reference Range Interpretation Comments Chloride Lvl (test code = Chloride Lvl) 105 95-109 [facility] HospitalBvextauIHAXCFMHHMJC8045-76-65 09:32:00 Test Item Value Reference Range Interpretation Comments BUN (test code = BUN) 10 7-22 [facility] HospitalUuyumxbBTKIEZSUZWDX4523-15-48 09:32:00 Test Item Value Reference Range Interpretation Comments Creatinine Lvl (test code = Creatinine 1.10 0.50-1.40 Lvl) [facility] HospitalHpyspsoSQCEZBPXTOAX0784-92-37 09:32:00 Test Item Value Reference Range Interpretation Comments Glucose Lvl (test code = Glucose Lvl) 108 70-99 [facility] HospitalJcddeqyMDIXIVCZOBHA4609-43-73 09:32:00 Test Item Value Reference Range Interpretation Comments Calcium Lvl (test code = Calcium Lvl) 8.3 8.5-10.5 [facility] HospitalRzmhvhlYSQRFFVTBMUP9970-06-85 09:32:00 Test Item Value Reference Range Interpretation Comments CO2 (test code = CO2) 26 24-32 [facility] HospitalQckxtzjHCRMBBDVHJEI2935-52-92 09:32:00 Test Item Value Reference Range Interpretation Comments Potassium Lvl (test code = Potassium 4.1 3.5-5.1 Lvl) [facility] HospitalZlflkuvZDQZGXLUKOPP5052-39-67 09:32:00 Test Item Value Reference Range Interpretation Comments Sodium Lvl (test code = Sodium Lvl) 143 135-[address] [facility]OpiyaspXNJEUIOOPW7114-59-53 09:32:00 Test Item Value Reference Range Interpretation Comments RDW (test code = RDW) 17.3 11.5-14.[address] [facility] HospitalLvoceloDGKXHISNIV5343-38-20 09:32:00 Test Item Value Reference Range Interpretation Comments MCHC (test code = MCHC) 33.4 32.0-36.[address] [facility] HospitalEoiyzknOVXMOFCJVI6686-45-84 09:32:00 Test Item Value Reference Range Interpretation Comments Platelet (test code = Platelet) 350 133-[address] [facility] HospitalUgyzpgvYKSMNQJQBX6704-52-10 09:32:00 Test Item Value Reference Range Interpretation Comments MPV (test code = MPV) 7.4 7.4-10.[address] [facility] HospitalIgikofmOAAWBETENK9694-01-82 09:32:00 Test Item Value Reference Range Interpretation Comments MCV (test code = MCV) 86.2 80.0-98.[address] [facility] HospitalGfezavjLSNHPQGVSG3552-79-39 09:32:00 Test Item Value Reference Range Interpretation Comments Hct (test code = Hct) 23.2 36.0-48.[address] [facility] HospitalCunqfuiNHXDXOMKWV0149-46-53 09:32:00 Test Item Value Reference Range Interpretation Comments MCH (test code = MCH) 28.7 pg 27.0-31.[address] [facility] HospitalBpxzqcuAHTJUVKRED2987-97-30 09:32:00 Test Item Value Reference Range Interpretation Comments Hgb (test code = Hgb) 7.7 12.0-16.[address] [facility] HospitalAeitygvKNGCXQOLOO0687-57-11 09:32:00 Test Item Value Reference Range Interpretation Comments RBC (test code = RBC) 2.69 4.20-5.[address] [facility] HospitalGtpquuuVUBYDFEOLL8987-61-65 09:32:00 Test Item Value Reference Range Interpretation Comments WBC (test code = WBC) 9.4 3.7-10.[address] [facility] HospitalOrkvdxwEOOYZNDWRX0715-71-29 09:32:00 Test Item Value Reference Range Interpretation Comments Lymphocytes # (test code = Lymphocytes 0.9 1.0-5.5 #) [facility] HospitalPvhjmwsFUFUKDOVXD3807-45-26 09:32:00 Test Item Value Reference Range Interpretation Comments Monocytes # (test code 0.9 See_Comment [Aut omated message] The = Monocytes #) system which generated this result tra nsmitted reference range : <=0.8. The reference r pascual was not used to int erpret this result as normal/abnormal . [facility] HospitalKyaekqmHMABMNAURH5324-68-02 09:32:00 Test Item Value Reference Range Interpretation Comments Basophils (test code = 0.4 See_Comment [Aut omated message] The Basophils) system which ge nerated this result tra nsmitted reference range : <=1.0. The reference r pascual was not used to int erpret this result as normal/abnormal . [facility] HospitalKhwvjxbQDZGLHRNWT9750-43-96 09:32:00 Test Item Value Reference Range Interpretation Comments Segs-Bands # (test code = Segs-Bands #) 7.6 1.5-8.[address] [facility] HospitalKicwhuzVUSLLFUVKK3783-00-09 09:32:00 Test Item Value Reference Range Interpretation Comments Lymphocytes (test code = Lymphocytes) 9.3 20.0-40.[address] [facility] HospitalHvjapfpDHTORWNGMA8274-86-38 09:32:00 Test Item Value Reference Range Interpretation Comments Segs (test code = Segs) 80.7 45.0-75.[address] [facility] HospitalXxcaohcXBHXAHZZML1721-50-26 09:32:00 Test Item Value Reference Range Interpretation Comments Monocytes (test code = Monocytes) 9.6 2.0-12.0 [facility] HospitalEwkmvuvFAMLZERULJZE7420-52-19 09:32:00 Test Item Value Reference Range Interpretation Comments AGAP (test code = AGAP) 16.1 10.0-20.0 [facility] HospitalCfuupstJPKSTNFPVCHM8589-12-42 09:32:00 Test Item Value Reference Range Interpretation Comments eGFR (test code = eGFR) 52 [facility] HospitalHrjqlriKVAMUAKNCTRC2019-14-55 09:32:00 Test Item Value Reference Range Interpretation Comments Chloride Lvl (test code = Chloride Lvl) 105 95-109 [facility] HospitalQoctczbVUJXEJGBYQKN1452-48-41 09:32:00 Test Item Value Reference Range Interpretation Comments BUN (test code = BUN) 10 7-22 [facility] HospitalJrtjporFTDQDSEKOBIY2387-28-00 09:32:00 Test Item Value Reference Range Interpretation Comments Creatinine Lvl (test code = Creatinine 1.10 0.50-1.40 Lvl) [facility] HospitalHzgupcjMWEKEGSRVTBR2411-31-49 09:32:00 Test Item Value Reference Range Interpretation Comments Glucose Lvl (test code = Glucose Lvl) 108 70-99 [facility] HospitalNrywptzJPSRDYGTEGEF1960-01-15 09:32:00 Test Item Value Reference Range Interpretation Comments Calcium Lvl (test code = Calcium Lvl) 8.3 8.5-10.5 [facility] HospitalHxsftnvIJEZTWCVTWOM8293-88-46 09:32:00 Test Item Value Reference Range Interpretation Comments CO2 (test code = CO2) 26 24-32 [facility] HospitalCihquiyQRADKXQFVGLL8906-57-80 09:32:00 Test Item Value Reference Range Interpretation Comments Potassium Lvl (test code = Potassium 4.1 3.5-5.1 Lvl) [facility] HospitalUrnrfhzIPKMYYQYVWAF3859-40-15 09:32:00 Test Item Value Reference Range Interpretation Comments Sodium Lvl (test code = Sodium Lvl) 143 135-[address] HospitalVvhctgxQTBGTRRZMN8997-89-84 09:32:00 Test Item Value Reference Range Interpretation Comments RDW (test code = RDW) 17.3 11.5-14.[address] [facility] HospitalYtopfmdZQSJZJKQPW0046-70-69 09:32:00 Test Item Value Reference Range Interpretation Comments MCHC (test code = MCHC) 33.4 32.0-36.[address] [facility] HospitalRnuciflHHDDUCOJUZ3875-05-99 09:32:00 Test Item Value Reference Range Interpretation Comments Platelet (test code = Platelet) 350 133-[address] [facility] HospitalVcujlshJOTWGBPWNB0047-83-65 09:32:00 Test Item Value Reference Range Interpretation Comments MPV (test code = MPV) 7.4 7.4-10.[address] [facility] HospitalBtmuzmeSXHRRGDDBK1682-04-96 09:32:00 Test Item Value Reference Range Interpretation Comments MCV (test code = MCV) 86.2 80.0-98.[address] [facility] HospitalEzmfhvoPMKKJMTJFD0861-84-03 09:32:00 Test Item Value Reference Range Interpretation Comments Hct (test code = Hct) 23.2 36.0-48.[address] HospitalUbhpntlQOAKULUQZA0051-42-96 09:32:00 Test Item Value Reference Range Interpretation Comments MCH (test code = MCH) 28.[address] 27[address]0-31.[address] [facility]OwipmzpIYZEZXGXWV1261-79-99 09:32:00 Test Item Value Reference Range Interpretation Comments Hgb (test code = Hgb) 7.7 12.0-16.0 [place] [address]-03-29 09:32:00 Test Item Value Reference Range Interpretation Comments RBC (test code = RBC) 2.69 4.20-5.[address] [facility]TnxhypyVJZKLHVHQV0600-77-76 09:32:00 Test Item Value Reference Range Interpretation Comments WBC (test code = WBC) 9.4 3.7-10.[address] [facility] HospitalJgsilleZQFCXADXYL1915-52-29 09:32:00 Test Item Value Reference Range Interpretation Comments Lymphocytes # (test code = Lymphocytes 0.9 1.0-5.5 #) [facility] HospitalEhkvywmFOWRNNQZNI3431-63-57 09:32:00 Test Item Value Reference Range Interpretation Comments Monocytes # (test code 0.9 See_Comment [Aut omated message] The = Monocytes #) system which generated this result tra nsmitted reference range : <=0.8. The reference r pascual was not used to int erpret this result as normal/abnormal . [facility] HospitalSxqtipbPTWXYJQWYR1177-17-67 09:32:00 Test Item Value Reference Range Interpretation Comments Basophils (test code = 0.4 See_Comment [Aut omated message] The Basophils) system which ge nerated this result tra nsmitted reference range : <=1.0. The reference r pascual was not used to int erpret this result as normal/abnormal . [facility] HospitalVhbuqivQLWOBWUDBH8653-22-89 09:32:00 Test Item Value Reference Range Interpretation Comments Segs-Bands # (test code = Segs-Bands #) 7.6 1.5-8.[address] [facility] HospitalJemwfizIGJZWGTDYX7126-61-84 09:32:00 Test Item Value Reference Range Interpretation Comments Lymphocytes (test code = Lymphocytes) 9.3 20.0-40.[address] [facility] HospitalPacukpbILRUIKPFBC6978-63-92 09:32:00 Test Item Value Reference Range Interpretation Comments Segs (test code = Segs) 80.7 45.0-75.[address] [facility] HospitalMaddfibPAHHKRSEWN1179-94-80 09:32:00 Test Item Value Reference Range Interpretation Comments Monocytes (test code = Monocytes) 9.6 2.0-12.0 [facility] HospitalJvdwgcrWHBYMUNXHCFS6864-84-52 09:32:00 Test Item Value Reference Range Interpretation Comments AGAP (test code = AGAP) 16.1 10.0-20.0 [facility] HospitalLjzuwwoJZOWHLKEUGJF6949-09-90 09:32:00 Test Item Value Reference Range Interpretation Comments eGFR (test code = eGFR) 52 [facility] HospitalVfqpywuACWYQHJYGQCT3106-89-52 09:32:00 Test Item Value Reference Range Interpretation Comments Chloride Lvl (test code = Chloride Lvl) 105 95-109 [facility] HospitalIzwnvxrXWBYFXCEVFBC0720-86-98 09:32:00 Test Item Value Reference Range Interpretation Comments BUN (test code = BUN) 10 7-22 [facility] HospitalOloczusUQOJTEKBJWMC6357-24-41 09:32:00 Test Item Value Reference Range Interpretation Comments Creatinine Lvl (test code = Creatinine 1.10 0.50-1.40 Lvl) [facility] HospitalRexjwapAZAPKBPQZFUX5947-92-16 09:32:00 Test Item Value Reference Range Interpretation Comments Glucose Lvl (test code = Glucose Lvl) 108 70-99 [facility] HospitalCmgivtpSFKOEHXXXRPW0841-03-69 09:32:00 Test Item Value Reference Range Interpretation Comments Calcium Lvl (test code = Calcium Lvl) 8.3 8.5-10.5 [facility] HospitalEdmiczaCCMNSKPRZAQY6300-92-85 09:32:00 Test Item Value Reference Range Interpretation Comments CO2 (test code = CO2) 26 24-32 [facility] HospitalJkfxpurVUNGYKBBKLSG3066-68-21 09:32:00 Test Item Value Reference Range Interpretation Comments Potassium Lvl (test code = Potassium 4.1 3.5-5.1 Lvl) [facility] HospitalGxufvaqCJRSHGZMVUIV1990-97-90 09:32:00 Test Item Value Reference Range Interpretation Comments Sodium Lvl (test code = Sodium Lvl) 143 135-[address] [facility] HospitalJkeawfiOLCXDKBXIT7147-69-25 09:32:00 Test Item Value Reference Range Interpretation Comments RDW (test code = RDW) 17.3 11.5-14.[address] [facility] HospitalXravnqtFNCUZLKWPO1461-46-64 09:32:00 Test Item Value Reference Range Interpretation Comments MCHC (test code = MCHC) 33.4 32.0-36.[address] [facility] HospitalBaraszzRYRFNFBRZJ7727-00-75 09:32:00 Test Item Value Reference Range Interpretation Comments Platelet (test code = Platelet) 350 133-[address] [facility] HospitalXsypgcrXGUHQEULFE5071-01-29 09:32:00 Test Item Value Reference Range Interpretation Comments MPV (test code = MPV) 7.4 7.4-10.[address] [facility] HospitalEmnigrzHSJHDYBYZS1497-60-34 09:32:00 Test Item Value Reference Range Interpretation Comments MCV (test code = MCV) 86.2 80.0-98.[address] [facility] HospitalLwvssvnXSHZBDSCOA7313-83-45 09:32:00 Test Item Value Reference Range Interpretation Comments Hct (test code = Hct) 23.2 36.0-48.[address] [facility] HospitalHjxtkenIRGWURKDLX9644-83-28 09:32:00 Test Item Value Reference Range Interpretation Comments MCH (test code = MCH) 28.7 pg 27.0-31.[address] [facility] HospitalKrgcbwePHJHGNTJHI1444-48-96 09:32:00 Test Item Value Reference Range Interpretation Comments Hgb (test code = Hgb) 7.7 12.0-16.[address] [facility] HospitalJslovnpINIETJMAFN6935-56-15 09:32:00 Test Item Value Reference Range Interpretation Comments RBC (test code = RBC) 2.69 4.20-5.[address] [facility] HospitalHhfxxpaHBMGSFEZAC8189-37-01 09:32:00 Test Item Value Reference Range Interpretation Comments WBC (test code = WBC) 9.4 3.7-10.[address] [facility] HospitalAoazanwTTYQZCQDSB1889-35-62 09:32:00 Test Item Value Reference Range Interpretation Comments Lymphocytes # (test code = Lymphocytes 0.9 1.0-5.5 #) [facility] HospitalOpmxpikPJTUXPIATD0870-09-89 09:32:00 Test Item Value Reference Range Interpretation Comments Monocytes # (test code 0.9 See_Comment [Aut omated message] The = Monocytes #) system which generated this result tra nsmitted reference range : <=0.8. The reference r pascual was not used to int erpret this result as normal/abnormal . [facility] HospitalMpempdgFOBPAKWSFX5047-57-32 09:32:00 Test Item Value Reference Range Interpretation Comments Basophils (test code = 0.4 See_Comment [Aut omated message] The Basophils) system which ge nerated this result tra nsmitted reference range : <=1.0. The reference r pascual was not used to int erpret this result as normal/abnormal . [facility] HospitalMksdvmuICPZUYXDDN4070-66-09 09:32:00 Test Item Value Reference Range Interpretation Comments Segs-Bands # (test code = Segs-Bands #) 7.6 1.5-8.[address] [facility] HospitalFuwrfouUAYLWYIUXA3917-32-52 09:32:00 Test Item Value Reference Range Interpretation Comments Lymphocytes (test code = Lymphocytes) 9.3 20.0-40.[address] [facility] HospitalPmyaoevIZTUOHEOON5285-28-93 09:32:00 Test Item Value Reference Range Interpretation Comments Segs (test code = Segs) 80.7 45.0-75.[address] [facility] HospitalGtmlbcrQCEFPDUJTZ9717-46-10 09:32:00 Test Item Value Reference Range Interpretation Comments Monocytes (test code = Monocytes) 9.6 2.0-12.0 [facility] HospitalGavogpkMLDTXJKFRIOD8293-41-44 09:32:00 Test Item Value Reference Range Interpretation Comments AGAP (test code = AGAP) 16.1 10.0-20.0 [facility] HospitalLronvkkIQKYXEWZUMEL1534-94-87 09:32:00 Test Item Value Reference Range Interpretation Comments eGFR (test code = eGFR) 52 [facility] HospitalWendvdaZDFOGOFYVRNS3140-24-30 09:32:00 Test Item Value Reference Range Interpretation Comments Chloride Lvl (test code = Chloride Lvl) 105 95-109 [facility] HospitalLhvdwicJQOWNIZCHNNB5484-47-66 09:32:00 Test Item Value Reference Range Interpretation Comments BUN (test code = BUN) 10 7-22 [facility] HospitalKdwtvocMJXPZUJQVOLU0619-80-14 09:32:00 Test Item Value Reference Range Interpretation Comments Creatinine Lvl (test code = Creatinine 1.10 0.50-1.40 Lvl) [facility] HospitalKdpebeaXLQOFFTOMTNW4545-36-51 09:32:00 Test Item Value Reference Range Interpretation Comments Glucose Lvl (test code = Glucose Lvl) 108 70-99 [facility] HospitalYxmzcilXQQKOORXYDQU0210-01-89 09:32:00 Test Item Value Reference Range Interpretation Comments Calcium Lvl (test code = Calcium Lvl) 8.3 8.5-10.5 [facility] HospitalXyesrofHMIUMIKGKSLZ2446-90-74 09:32:00 Test Item Value Reference Range Interpretation Comments CO2 (test code = CO2) 26 24-32 [facility] HospitalHlfhcrcZUBLTVSGRJMB3038-82-46 09:32:00 Test Item Value Reference Range Interpretation Comments Potassium Lvl (test code = Potassium 4.1 3.5-5.1 Lvl) [facility] HospitalOutasebAJNCCSDKOZCB3102-38-89 09:32:00 Test Item Value Reference Range Interpretation Comments Sodium Lvl (test code = Sodium Lvl) 143 135-[address] [facility] HospitalVmdzdssNWEIGEMNKW6872-58-98 09:32:00 Test Item Value Reference Range Interpretation Comments RDW (test code = RDW) 17.3 11.5-14.[address] [facility] HospitalNkoyjedDFXUVINGNS9263-80-03 09:32:00 Test Item Value Reference Range Interpretation Comments MCHC (test code = MCHC) 33.4 32.0-36.[address] [facility] HospitalNbdhrrhSPDBQBNOHS6210-31-53 09:32:00 Test Item Value Reference Range Interpretation Comments Platelet (test code = Platelet) 350 133-[address] [facility] HospitalSoztwzpYFRONSULVR1559-24-81 09:32:00 Test Item Value Reference Range Interpretation Comments MPV (test code = MPV) 7.4 7.4-10.[address] [facility] HospitalSowfspeBICSOGMVVF8309-10-73 09:32:00 Test Item Value Reference Range Interpretation Comments MCV (test code = MCV) 86.2 80.0-98.[address] [facility] HospitalToflijjQJSNWLJUDQ2435-07-29 09:32:00 Test Item Value Reference Range Interpretation Comments Hct (test code = Hct) 23.2 36.0-48.[address] [facility] HospitalAzypmxrFWMZNIDEBY6048-52-63 09:32:00 Test Item Value Reference Range Interpretation Comments MCH (test code = MCH) 28.7 pg 27.0-31.[address] [facility] HospitalYlxpjorLQBDSYAASE9359-20-03 09:32:00 Test Item Value Reference Range Interpretation Comments Hgb (test code = Hgb) 7.7 12.0-16.[address] [facility] HospitalOyslazjOHLMFCZVJB6721-75-68 09:32:00 Test Item Value Reference Range Interpretation Comments RBC (test code = RBC) 2.69 4.20-5.[address] [facility] HospitalOybmcdgJRIWMEJEOL9178-10-07 09:32:00 Test Item Value Reference Range Interpretation Comments WBC (test code = WBC) 9.4 3.7-10.[address] [facility] HospitalDqqssrlUOGDSIHJJV2823-70-97 09:32:00 Test Item Value Reference Range Interpretation Comments Lymphocytes # (test code = Lymphocytes 0.9 1.0-5.5 #) [facility] HospitalGxavsvjNIEZOELXPB7841-19-56 09:32:00 Test Item Value Reference Range Interpretation Comments Monocytes # (test code 0.9 See_Comment [Aut omated message] The = Monocytes #) system which generated this result tra nsmitted reference range : <=0.8. The reference r pascual was not used to int erpret this result as normal/abnormal . [facility] HospitalQsudncxFWBMDFZCGW4312-27-95 09:32:00 Test Item Value Reference Range Interpretation Comments Basophils (test code = 0.4 See_Comment [Aut omated message] The Basophils) system which ge nerated this result tra nsmitted reference range : <=1.0. The reference r pascual was not used to int erpret this result as normal/abnormal . [facility] HospitalWcqeymjALZOHDMEIQ5563-83-38 09:32:00 Test Item Value Reference Range Interpretation Comments Segs-Bands # (test code = Segs-Bands #) 7.6 1.5-8.[address] [facility] HospitalLkdyxieOXMHMZGEFU4835-27-86 09:32:00 Test Item Value Reference Range Interpretation Comments Lymphocytes (test code = Lymphocytes) 9.3 20.0-40.[address] [facility] HospitalGemckgnVQIWNPGWTJ6884-50-75 09:32:00 Test Item Value Reference Range Interpretation Comments Segs (test code = Segs) 80.7 45.0-75.[address] [facility] HospitalBeneaijXRISVVCKBG3069-55-91 09:32:00 Test Item Value Reference Range Interpretation Comments Monocytes (test code = Monocytes) 9.6 2.0-12.0 [facility] HospitalNqnszklPKHBIRTXIWIQ2995-82-86 09:32:00 Test Item Value Reference Range Interpretation Comments AGAP (test code = AGAP) 16.1 10.0-20.0 [facility] HospitalGkgoexgEWJXGMEHQEFG8155-82-51 09:32:00 Test Item Value Reference Range Interpretation Comments eGFR (test code = eGFR) 52 [facility] HospitalYajsnipSQZCPJPRVNOJ6167-68-65 09:32:00 Test Item Value Reference Range Interpretation Comments Chloride Lvl (test code = Chloride Lvl) 105 95-109 [facility] HospitalXukqaxlWUVNKKZGISCZ0091-04-12 09:32:00 Test Item Value Reference Range Interpretation Comments BUN (test code = BUN) 10 7-22 [facility] HospitalRsnmhrrLGFUSDYZKPBY6732-02-38 09:32:00 Test Item Value Reference Range Interpretation Comments Creatinine Lvl (test code = Creatinine 1.10 0.50-1.40 Lvl) [facility] HospitalFtsubvtHIADYCDNWDJQ5536-78-83 09:32:00 Test Item Value Reference Range Interpretation Comments Glucose Lvl (test code = Glucose Lvl) 108 70-99 [facility] HospitalCqqsxqaLLOERGAQNPGF0274-99-82 09:32:00 Test Item Value Reference Range Interpretation Comments Calcium Lvl (test code = Calcium Lvl) 8.3 8.5-10.5 [facility] HospitalZqlocnfCBLBTOAWZQKD3968-50-58 09:32:00 Test Item Value Reference Range Interpretation Comments CO2 (test code = CO2) 26 24-32 [facility] HospitalBxoglmtLRAXIHUFCINE3728-28-99 09:32:00 Test Item Value Reference Range Interpretation Comments Potassium Lvl (test code = Potassium 4.1 3.5-5.1 Lvl) [facility] HospitalLqiioyeMKTZYOVVOGUX1037-20-06 09:32:00 Test Item Value Reference Range Interpretation Comments Sodium Lvl (test code = Sodium Lvl) 143 135-[address] [facility] HospitalLpgwcirKXUSUHZMAC4992-53-39 09:32:00 Test Item Value Reference Range Interpretation Comments RDW (test code = RDW) 17.3 11.5-14.[address] [facility] HospitalJmkzrqfALFOIQZPEY7637-50-81 09:32:00 Test Item Value Reference Range Interpretation Comments MCHC (test code = MCHC) 33.4 32.0-36.[address] [facility] HospitalTevefrjUBPMUJEVRB8635-76-67 09:32:00 Test Item Value Reference Range Interpretation Comments Platelet (test code = Platelet) 350 133-[address] [facility] HospitalGuuyingLCVICRVMZF9094-04-20 09:32:00 Test Item Value Reference Range Interpretation Comments MPV (test code = MPV) 7.4 7.4-10.[address] [facility] HospitalCawyksyWFMAXNUEXA7179-41-46 09:32:00 Test Item Value Reference Range Interpretation Comments MCV (test code = MCV) 86.2 80.0-98.[address] [facility] HospitalOjvjodlYODKHDLFRO3227-82-53 09:32:00 Test Item Value Reference Range Interpretation Comments Hct (test code = Hct) 23.2 36.0-48.[address] [facility] HospitalIvotiurAQOOVOYDQR8901-61-53 09:32:00 Test Item Value Reference Range Interpretation Comments MCH (test code = MCH) 28.7 pg 27.0-31.[address] [facility] HospitalOliqxjiXIHXYSCINT0764-70-04 09:32:00 Test Item Value Reference Range Interpretation Comments Hgb (test code = Hgb) 7.7 12.0-16.[address] [facility] HospitalMuwgwtxPVILWUPBRM1494-87-08 09:32:00 Test Item Value Reference Range Interpretation Comments RBC (test code = RBC) 2.69 4.20-5.[address] [facility] HospitalKfndiefZDPAZEAZEQ0551-71-69 09:32:00 Test Item Value Reference Range Interpretation Comments WBC (test code = WBC) 9.4 3.7-10.[address] [facility] HospitalKejfuylULEBMFXEFQ0429-71-01 09:32:00 Test Item Value Reference Range Interpretation Comments Lymphocytes # (test code = Lymphocytes 0.9 1.0-5.5 #) [facility] HospitalHjqshlkCCUHRCSHEF6547-23-38 09:32:00 Test Item Value Reference Range Interpretation Comments Monocytes # (test code 0.9 See_Comment [Aut omated message] The = Monocytes #) system which generated this result tra nsmitted reference range : <=0.8. The reference r pascual was not used to int erpret this result as normal/abnormal . [facility] HospitalVudfqbaHMLIHIPKAR0960-57-13 09:32:00 Test Item Value Reference Range Interpretation Comments Basophils (test code = 0.4 See_Comment [Aut omated message] The Basophils) system which ge nerated this result tra nsmitted reference range : <=1.0. The reference r pascual was not used to int erpret this result as normal/abnormal . [facility] HospitalKzpkfwwSCQFEBHLDO0982-62-05 09:32:00 Test Item Value Reference Range Interpretation Comments Segs-Bands # (test code = Segs-Bands #) 7.6 1.5-8.[address] [facility] HospitalXwpwoydVXUSHPTUMO8631-46-43 09:32:00 Test Item Value Reference Range Interpretation Comments Lymphocytes (test code = Lymphocytes) 9.3 20.0-40.[address] [facility] HospitalLfaivzyDPYVWOFEXY9654-28-95 09:32:00 Test Item Value Reference Range Interpretation Comments Segs (test code = Segs) 80.7 45.0-75.[address] [facility] HospitalLbfijvjXHPGZGWPZB2620-29-45 09:32:00 Test Item Value Reference Range Interpretation Comments Monocytes (test code = Monocytes) 9.6 2.0-12.0 [facility]dcylqhRQWBTOQVJBOQ3849-42-20 09:32:0016.1[facility] HospitalECTROLKAIS[facility] 2017-01-29 09:32:0052[facility] TzknyvzHIUIXOPHQYPF1497-31-31 09:32:74444Jeocetrc DsuuglmCHOCXXWNNFSC0843-39-37 09:32:0010[facility] AqegbceJOYKEFQQAQDE5922-46-30 09:32:001.10[facility] ZidqcmgBUMMQVPFKNEM7303-22-81 09:32:52516Kcrpylzw Sushil PFBJBCNLJZRG4586-39-63 09:32:008.3[facility] WpvnkjqNUEIITTWMOLU7460-13-99 09:32:0026[facility] HsxewqsLXZYHIXYJCLP4916-43-38 09:32:004.1[facility] Sushil TRUQATADQENE9892-08-26 09:32:74454Ngfednhz DbfftukSGOZTDDDVR3011-17-11 09:32:00 17.3[facility] BqkuikeWJPWGPWOUZ3885-88-77 09:32:0033.4[facility] 2017-01-29 09:32:50555Xwltozyf MglvvegTYQBFRAUKU9919-75-91 09:32:007.4[facility] McguofvDWAQBLOFQP5570-88-58 09:32:0086.2[facility] SlrbeinTACLLYKXVR5560-64-34 09:32:0023.2[facility] DyahsweEZTOENXDIU8912-20-73 09:32:00 Test Item Value Reference Range Interpretation Comments MCH (test code = MCH) 28.7 pg 27.0-31.0 [facility] ZuomfpjZAXZDKETVV5055-50-35 09:32:007.7[facility]ann[facility]MAT[facility] 2017-01-29 09:32:002.69[facility] ZxbolrzODTLPFJCYP0991-60-57 09:32:009.4[facility] FjwsrmwMUCVDCFQFN8764-62-71 09:32:000.9[facility] UvyaitcPBNUZQIKTY3426-71-24 09:32:000.9[facility] SzjgjviWOWLJDHDNG1269-98-39 09:32:000.4[facility] Sushil XVSPTVQCDI8539-09-73 09:32:007.6[facility] WhxjjejHOBKWYWQFA0994-04-04 09:32:009.3 [facility] LqgitxnJLURNTDKLH7024-55-74 09:32:0080.7[facility] 2017-01-29 09:32:009.6[facility] NozemovTCNOVKGSTFSN4805-98-25 09:32:0016.1 [facility] JnivnvyJBNLUNXQQHJX7921-33-22 09:32:0052[facility]annELECTROLYTES 2017-01-29 09:32:86140Vhueipxy UhmcebfVETPVYSAWTIU1150-83-62 09:32:0010[facility] QfcsvipXFCXJIFYWZOJ8088-89-04 09:32:001.10[facility] HptuheuKZLTUGIHWLFF4135-55-62 09:32:52215Bbavzjqg DtzpzamISZYAGVMRSUL5012-66-75 09:32:008.3[facility] [place] APJTURSXMVSI7911-65-17 09:32:0026[facility] NkvwrihZIFGFELFZKRX0379-32-42 09:32:00 4.1[facility] UzzbdvzIQROTVFDIKHG0535-77-17 09:32:86518Hwlvleeo HermannHEMATOLOGY 2017-01-29 09:32:0017.3[facility] KbeejonLPXBQJJHQJ7097-98-28 09:32:0033.4[facility] UyoebknCOSRQXXIEW6100-40-89 09:32:18959Oydabwun GktoeriEANHMPQORO9012-22-24 09:32:007.4[facility] BtjzdkrOWCJRLOBRZ3152-49-02 09:32:0086.2[facility] SYKWTSORPM0353-09-72 09:32:0023.2[facility] ZbupausMWGEQYNZQR7809-46-16 09:32:00 Test Item Value Reference Range Interpretation Comments MCH (test code = MCH) 28.7 pg 27.0-31.0 [facility] WlkiarzNKSWLYPAXI6395-15-87 09:32:007.7[facility]annHEMATOLOGY 2017-01-29 09:32:002.69[facility] CydtucuGQATPMVQEW4513-91-22 09:32:009.4[facility] RzzbazdRYILAUZGIW1224-06-96 09:32:000.9[facility] CwockbtTSCXZWNJHF1388-39-03 09:32:000.9[facility] BnwpdaeOOMTARSPKC7566-01-11 09:32:000.4[facility]ushil NKDBSVPIKL7766-95-57 09:32:007.6[facility] SjjzadvLZJNCVIJSR4104-23-16 09:32:009.3 [facility] YwkknazJWDWCTUUJE0506-93-73 09:32:0080.7[facility]annHEMATOLOGY 2017-01-29 09:32:009.6[facility] AhvebvdFOIVBVOXPQOO1795-94-77 09:32:0016.1 [facility] SpfuqvvGURUKXXLUNUM8893-05-07 09:32:0052[facility]annELECTROLYTES 2017-01-29 09:32:74946Ikdomewg DfavbovNZLWQWRKPUAZ2244-88-43 09:32:0010[facility] QswhicoEPEJMXKGBGLA6783-06-99 09:32:001.10[facility] OdtbrepMOLAPZOSRFIL8689-69-86 09:32:28760Yiuuruzn RfoqbjbZOJYNEKTCFTJ0810-38-86 09:32:008.3[facility] [place] NDPYKNYIBWBQ1983-18-71 09:32:0026[facility] YzwtaxiFZOEMGUDIBIQ2965-80-82 09:32:00 4.1[facility] OrnucdyRCPSTWLICZOW4267-62-21 09:32:81985Wpjfgrny HermannHEMATOLOGY 2017-01-29 09:32:0017.3[facility] UddjdpyVCNGKTXHTC9611-79-35 09:32:0033.4[facility] OptkavqLOLQGWFJBZ1298-10-20 09:32:08814Iywjalhn XcnrknhIECQUEFWPN9203-32-86 09:32:007.4[facility] GjawfoxCSMLNWCNVE7793-12-07 09:32:0086.2[facility] SRXQPUFGUI2440-91-48 09:32:0023.2[facility] KislewsHNYDCONPVM7897-54-90 09:32:00 Test Item Value Reference Range Interpretation Comments MCH (test code = MCH) 28.7 pg 27.0-31.0 [facility] FmanxmpTNZSUDCJHY2245-72-52 09:32:007.7[facility]annHEMATOLOGY 2017-01-29 09:32:002.69[facility] GaujijsVFVUGLINGB9291-33-96 09:32:009.4[facility] MdlclekZEYEOSYTMX4114-37-54 09:32:000.9[facility] DhzhnrwPZLLWKZHZL3294-94-81 09:32:000.9[facility] WahxjbgDWAJLTMIDN5777-22-88 09:32:000.4[facility] [place] YGEPTKCHJM8230-44-58 09:32:007.6[facility] BxhnsfqGVCZUWNFFS5905-76-57 09:32:009.3 [facility] XwezhbkGWPGXNXRSP0121-06-73 09:32:0080.7[facility]annHE[facility] 2017-01-29 09:32:009.6[facility] CenterSoxhgasBEDHWGLQXNRA8597-86-36 09:32:00 Test Item Value Reference Range Interpretation Comments AGAP (test code = AGAP) 16.1 10.0-20.0 [facility] HospitalOpueyujKIUGQGTSJFLI0005-46-48 09:32:00 Test Item Value Reference Range Interpretation Comments eGFR (test code = eGFR) 52 [facility] HospitalJvtiihsTHYNSJOYFZYO2664-17-94 09:32:00 Test Item Value Reference Range Interpretation Comments Chloride Lvl (test code = Chloride Lvl) 105 95-109 [facility] HospitalIskmhhmLJLWWGMQBVUK4215-95-72 09:32:00 Test Item Value Reference Range Interpretation Comments BUN (test code = BUN) 10 7-22 [facility] HospitalWmbhumwGHHDTTKIUALQ9183-91-15 09:32:00 Test Item Value Reference Range Interpretation Comments Creatinine Lvl (test code = Creatinine 1.10 0.50-1.40 Lvl) [facility] HospitalXodlmwnLOFYCQQOYSNN9995-83-97 09:32:00 Test Item Value Reference Range Interpretation Comments Glucose Lvl (test code = Glucose Lvl) 108 70-99 [facility] HospitalGistckgFVXSDPTOWPTW7900-58-17 09:32:00 Test Item Value Reference Range Interpretation Comments Calcium Lvl (test code = Calcium Lvl) 8.3 8.5-10.5 [facility] HospitalXkuanydPIYFTOUWHBHQ1365-06-93 09:32:00 Test Item Value Reference Range Interpretation Comments CO2 (test code = CO2) 26 24-32 [facility] HospitalKbemixoWGWUBNBDCBRX7521-28-51 09:32:00 Test Item Value Reference Range Interpretation Comments Potassium Lvl (test code = Potassium 4.1 3.5-5.1 Lvl) [facility] HospitalDrdsfthGZPVFRCPEUMV7081-59-00 09:32:00 Test Item Value Reference Range Interpretation Comments Sodium Lvl (test code = Sodium Lvl) 143 135-[address] [facility]ApxythoFPOENBUBYU1711-19-07 09:32:00 Test Item Value Reference Range Interpretation Comments RDW (test code = RDW) 17.3 11.5-14.[address] HospitalPbphkiaXIQLZTHLYO4251-41-98 09:32:00 Test Item Value Reference Range Interpretation Comments MCHC (test code = MCHC) 33.4 32.0-36.[address] HospitalWzrepaqDRWTAYDWRO3987-55-60 09:32:00 Test Item Value Reference Range Interpretation Comments Platelet (test code = Platelet) 350 133-[address] [facility] HospitalNbvfrahBJFZVVWBKX5304-44-96 09:32:00 Test Item Value Reference Range Interpretation Comments MPV (test code = MPV) 7.4 7.4-10.[address] [facility]QcueeuuNJMXTGYWPK0259-62-06 09:32:00 Test Item Value Reference Range Interpretation Comments MCV (test code = MCV) 86.2 80.0-98.[address] [facility]DonupwlLDLVAHREHE8437-24-38 09:32:00 Test Item Value Reference Range Interpretation Comments Hct (test code = Hct) 23.2 36.0-48.[address] [facility]AikpyxuDIPRGNASBG4559-30-26 09:32:00 Test Item Value Reference Range Interpretation Comments MCH (test code = MCH) 28.7 pg 27.0-31.[address] [facility]DozyjalEFCINLGMFV8111-28-75 09:32:00 Test Item Value Reference Range Interpretation Comments Hgb (test code = Hgb) 7.7 12.0-16.0 [facility]bfNILBUBEULYVX0862-11-75 09:32:00 Test Item Value Reference Range Interpretation Comments AGAP (test code = AGAP) 16.1 10.0-20.[address] [facility]JlwvndoSEPXIVEWAO3013-37-10 09:32:00 Test Item Value Reference Range Interpretation Comments RBC (test code = RBC) 2.69 4.20-5.40 [facility]NqkxhtmGQBJXWQPHSQD1550-35-48 09:32:00 Test Item Value Reference Range Interpretation Comments eGFR (test code = eGFR) [address] [facility]QmhskcwKOYXEAVCVB8252-65-71 09:32:00 Test Item Value Reference Range Interpretation Comments WBC (test code = WBC) 9.4 3.7-10.4 [facility] HospitalPwjygpwQPDMSISVJGTI5135-91-75 09:32:00 Test Item Value Reference Range Interpretation Comments Chloride Lvl (test code = Chloride Lvl) 105 95-[address] [facility]IfmojwmRQOCWESDQV4588-37-50 09:32:00 Test Item Value Reference Range Interpretation Comments Lymphocytes # (test code = Lymphocytes 0.9 1.0-5.5 #) [facility] HospitalKrcqycmSIMGZSCILFUD4114-16-17 09:32:00 Test Item Value Reference Range Interpretation Comments BUN (test code = BUN) 10 7-[address] [facility]DvidvpcGPZSOXAQSN0317-03-91 09:32:00 Test Item Value Reference Range Interpretation Comments Monocytes # (test code 0.9 See_Comment [Aut omated message] The = Monocytes #) system which generated this result tra nsmitted reference range : <=0.8. The reference r pascual was not used to int erpret this result as normal/abnormal . [facility] HospitalJtypbwlPMPUGSEOXUIA8185-68-67 09:32:00 Test Item Value Reference Range Interpretation Comments Creatinine Lvl (test code = Creatinine 1.10 0.50-1.40 Lvl) [facility] HospitalLkajkebHAPXKFGIOB5834-47-95 09:32:00 Test Item Value Reference Range Interpretation Comments Basophils (test code = 0.4 See_Comment [Aut omated message] The Basophils) system which ge nerated this result tra nsmitted reference range : <=1.0. The reference r pascual was not used to int erpret this result as normal/abnormal . [facility] HospitalLlhoyhvTGWXTVSETQVO8361-25-96 09:32:00 Test Item Value Reference Range Interpretation Comments Glucose Lvl (test code = Glucose Lvl) 108 70-[address] [facility]WoepzulOYWZLCDBUB7548-92-66 09:32:00 Test Item Value Reference Range Interpretation Comments Segs-Bands # (test code = Segs-Bands #) 7.6 1.5-8.1 [facility] HospitalWouzmuuEHHLRHHOHNAX3937-66-21 09:32:00 Test Item Value Reference Range Interpretation Comments Calcium Lvl (test code = Calcium Lvl) 8.3 8.5-10.[address] [facility]GifgjorJORUNQREGN2972-07-97 09:32:00 Test Item Value Reference Range Interpretation Comments Lymphocytes (test code = Lymphocytes) 9.3 20.0-40.0 [facility] HospitalBlubzxeURURFUKWMYLA9021-74-50 09:32:00 Test Item Value Reference Range Interpretation Comments CO2 (test code = CO2) 26 24-[address] [facility]BgjpviiGZKWDLERIW2580-66-42 09:32:00 Test Item Value Reference Range Interpretation Comments Segs (test code = Segs) 80.7 45.0-75.0 [facility] HospitalLiyhksvGGTOQPOXNLSI4280-41-52 09:32:00 Test Item Value Reference Range Interpretation Comments Potassium Lvl (test code = Potassium 4.1 3.5-5.1 Lvl) [facility] HospitalFsmoarzIQWEEZLSNS4772-60-69 09:32:00 Test Item Value Reference Range Interpretation Comments Monocytes (test code = Monocytes) 9.6 2.0-12.0 [facility] HospitalTjxaiesIYXBTLUMNBYB6369-51-03 09:32:00 Test Item Value Reference Range Interpretation Comments Sodium Lvl (test code = Sodium Lvl) 143 135-[address] [facility] HospitalDbuwluwDWYZGSJFJZ9251-02-52 09:32:00 Test Item Value Reference Range Interpretation Comments RDW (test code = RDW) 17.3 11.5-14.[address] [facility] HospitalZcrmztbQUFFXIOSCW6340-73-74 09:32:00 Test Item Value Reference Range Interpretation Comments MCHC (test code = MCHC) 33.4 32.0-36.[address] [facility] HospitalQgnpdfjZULXUPCJXU1945-79-94 09:32:00 Test Item Value Reference Range Interpretation Comments Platelet (test code = Platelet) 350 133-[address] [facility] HospitalIbaerdcSDIBLGHKSL5315-25-18 09:32:00 Test Item Value Reference Range Interpretation Comments MPV (test code = MPV) 7.4 7.4-10.[address] [facility] HospitalLhpiulbPXZUHLJKMN0593-63-05 09:32:00 Test Item Value Reference Range Interpretation Comments MCV (test code = MCV) 86.2 80.0-98.[address] [facility] HospitalHdhzxrqUGKLQDOEBY5744-22-93 09:32:00 Test Item Value Reference Range Interpretation Comments Hct (test code = Hct) 23.2 36.0-48.[address] [facility] HospitalOmkgjtgTXFHVRMNHC0667-80-04 09:32:00 Test Item Value Reference Range Interpretation Comments MCH (test code = MCH) 28.7 pg 27.0-31.[address] [facility] HospitalUhisiucUZYCOGKJMI2213-86-23 09:32:00 Test Item Value Reference Range Interpretation Comments Hgb (test code = Hgb) 7.7 12.0-16.[address] [facility] HospitalAthhgyiYGUTWKAPOF4006-52-85 09:32:00 Test Item Value Reference Range Interpretation Comments RBC (test code = RBC) 2.69 4.20-5.[address] [facility] HospitalLunqrlwLLCQCSSERU9734-83-67 09:32:00 Test Item Value Reference Range Interpretation Comments WBC (test code = WBC) 9.4 3.7-10.[address] [facility] HospitalVvuqsbjNJRGMTYYST7077-52-49 09:32:00 Test Item Value Reference Range Interpretation Comments Lymphocytes # (test code = Lymphocytes 0.9 1.0-5.5 #) [facility] HospitalDepveteRJNTDNCQKY5070-82-76 09:32:00 Test Item Value Reference Range Interpretation Comments Monocytes # (test code 0.9 See_Comment [Aut omated message] The = Monocytes #) system which generated this result tra nsmitted reference range : <=0.8. The reference r pascual was not used to int erpret this result as normal/abnormal . [facility] HospitalHebaeoaUYPUDRQUCY7841-59-83 09:32:00 Test Item Value Reference Range Interpretation Comments Basophils (test code = 0.4 See_Comment [Aut omated message] The Basophils) system which ge nerated this result tra nsmitted reference range : <=1.0. The reference r pascual was not used to int erpret this result as normal/abnormal . [facility] HospitalKhuviwfWQVCQEVKFN2463-50-29 09:32:00 Test Item Value Reference Range Interpretation Comments Segs-Bands # (test code = Segs-Bands #) 7.6 1.5-8.[address] [facility] HospitalBchmiglFNDOISECRA8920-76-82 09:32:00 Test Item Value Reference Range Interpretation Comments Lymphocytes (test code = Lymphocytes) 9.3 20.0-40.[address] [facility] HospitalKzsbkwlDRIFFLEMKZ0302-88-59 09:32:00 Test Item Value Reference Range Interpretation Comments Segs (test code = Segs) 80.7 45.0-75.[address] [facility] HospitalAzsrkdvSNSZYPYQKE2813-26-07 09:32:00 Test Item Value Reference Range Interpretation Comments Monocytes (test code = Monocytes) 9.6 2.0-12.0 [facility] MbsjbbyFFYJPNRMCLWI5615-37-51 09:32:0016.1[facility]annELECTROLYTES 2017-01-29 09:32:0052[facility] GkpgmwxJEFKESTLEICO2374-51-87 09:32:87751Ouldpqyy YcwuhztVLRCQTHLPMUP2334-92-77 09:32:0010[facility] FtfpaweYRRALODVFSCE5233-09-10 09:32:001.10[facility] NzosdlvEGQATQYCKIYE7312-39-65 09:32:98976Oyhbhjkd Sushil RBGOZOIDKMHN7113-26-76 09:32:008.3[facility] AcrnamzXXIVYBVASLIV0276-53-32 09:32:0026[facility] UeamerlOFGICUAQOXUH9600-06-74 09:32:004.1[facility] EGFTTKSFEWXH8636-04-60 09:32:25926Smesccdl JfenajiKVIHTQMGIU5023-55-33 09:32:00 17.3[facility] EnopdrlYIFZUFVQRZ5263-59-30 09:32:0033.4[facility]annHEMATOLOGY 2017-01-29 09:32:11418Jcretytk AjgqnmrIUHJERIUKC4676-24-81 09:32:007.4[facility] XjsfhtmNJEAHCYPED1007-78-76 09:32:0086.2[facility] IcnbkldRZGEPGVCUJ0834-14-68 09:32:0023.2[facility] JvkifokMWNCPXNDOF2091-61-79 09:32:00 Test Item Value Reference Range Interpretation Comments MCH (test code = MCH) 28.7 pg 27.0-31.0 [facility] OgbonlbMXAYWIMBRA2063-28-95 09:32:007.7[facility] HermannHEMATOLOGY 2017-01-29 09:32:002.69[facility] JfysgsqUFHCKRULGU0093-69-82 09:32:009.4[facility] XktpaxoOBSJIHFNSI3170-12-69 09:32:000.9[facility] OslhggsZRTDWULATZ5213-65-30 09:32:000.9[facility] VzgekokKMVYIEULNW5773-38-77 09:32:000.4[facility] REDJKZXAMW4077-01-79 09:32:007.6[facility] KcwhusnVGNINLCJNQ9460-12-59 09:32:009.3 [facility]villeSifwpifMCSTBZBVCY6786-15-97 09:32:0080.7[facility] 2017-01-29 09:32:009.6[facility] ZJWMSAD5564-85-86 12:43:00 Test Item Value Reference Range Interpretation Comments ABO/Rh (test code = ABO/Rh) [facility] HZCDBJA1265-08-52 12:43:00 Test Item Value Reference Range Interpretation Comments Antibody Scrn (test Negative (01/28/17 7:43 code = Antibody Scrn) AM) [facility] HospitalUwuigarOJOOUJWGEFHJ7093-22-98 12:43:00 Test Item Value Reference Range Interpretation Comments AGAP (test code = AGAP) 14.9 10.0-20.0 [facility] HospitalQdpyekvAZFMSGMYSLZP8198-37-39 12:43:00 Test Item Value Reference Range Interpretation Comments CO2 (test code = CO2) 25 24-32 [facility] HospitalAdnzlaaSKDOLOAXXPVV9144-34-12 12:43:00 Test Item Value Reference Range Interpretation Comments Calcium Lvl (test code = Calcium Lvl) 8.9 8.5-10.5 [facility] HospitalOrewnfwNRSXCOVCDLPB3832-86-68 12:43:00 Test Item Value Reference Range Interpretation Comments BUN (test code = BUN) 13 7-22 [facility] HospitalNtbclrtPDIEZRXSUJPY5194-29-28 12:43:00 Test Item Value Reference Range Interpretation Comments Creatinine Lvl (test code = Creatinine 1.07 0.50-1.40 Lvl) [facility] HospitalOwpmaiuWZASSMZGFHAF9646-65-24 12:43:00 Test Item Value Reference Range Interpretation Comments Sodium Lvl (test code = Sodium Lvl) 139 135-145 [facility] HospitalXrjjaioTFKAQQRJADJV3867-90-62 12:43:00 Test Item Value Reference Range Interpretation Comments Potassium Lvl (test code = Potassium 3.9 3.5-5.1 Lvl) [facility] HospitalJccxfheBITJLAKLOWKF8587-21-45 12:43:00 Test Item Value Reference Range Interpretation Comments Chloride Lvl (test code = Chloride Lvl) 103 95-109 [facility] HospitalPcddldlDRSWRIWYIAVU2002-35-48 12:43:00 Test Item Value Reference Range Interpretation Comments Glucose Lvl (test code = Glucose Lvl) 93 70-99 [facility] HospitalLhftaslPUQYWGHSDWVI8585-80-08 12:43:00 Test Item Value Reference Range Interpretation Comments eGFR (test code = eGFR) [address] [facility]PnsineyYIJHFXJANI5595-88-05 12:43:00 Test Item Value Reference Range Interpretation Comments Hgb (test code = Hgb) 6.4 12.0-16.[address] [facility] HospitalUncwrxoKUAUDSJFWA8225-17-09 12:43:00 Test Item Value Reference Range Interpretation Comments Hct (test code = Hct) 19.8 36.0-48.0 [facility] UCXAWBJ9381-97-03 12:43:00 Test Item Value Reference Range Interpretation Comments ABO/Rh (test code = ABO/Rh) A POS [facility] YINPUJQ2147-78-56 12:43:00 Test Item Value Reference Range Interpretation Comments Antibody Scrn (test Negative (01/28/17 7:43 code = Antibody Scrn) AM) [facility] HospitalBqltoofBZIJNHBNLIJV4410-75-40 12:43:00 Test Item Value Reference Range Interpretation Comments AGAP (test code = AGAP) 14.9 10.0-20.0 [facility] HospitalWspwofsYTNRUTUTLWFE5737-63-99 12:43:00 Test Item Value Reference Range Interpretation Comments CO2 (test code = CO2) 25 24-32 [facility] HospitalWbwaxmvPNJKFLTYIPLC7972-88-48 12:43:00 Test Item Value Reference Range Interpretation Comments Calcium Lvl (test code = Calcium Lvl) 8.9 8.5-10.5 [facility] HospitalQeztwdgPTRJWYPIGPYL0605-03-20 12:43:00 Test Item Value Reference Range Interpretation Comments BUN (test code = BUN) 13 7-22 [facility] HospitalVxpymhmQZNZNBEOSKMB5627-79-83 12:43:00 Test Item Value Reference Range Interpretation Comments Creatinine Lvl (test code = Creatinine 1.07 0.50-1.40 Lvl) [facility] HospitalRojfrtnOLXZFWKYJFYQ6159-80-78 12:43:00 Test Item Value Reference Range Interpretation Comments Sodium Lvl (test code = Sodium Lvl) 139 135-145 [facility] HospitalDkzilkdQBEBTCKKSCRG0670-61-44 12:43:00 Test Item Value Reference Range Interpretation Comments Potassium Lvl (test code = Potassium 3.9 3.5-5.1 Lvl) [facility] HospitalKenaupqGXERQMPVCBSF0279-53-94 12:43:00 Test Item Value Reference Range Interpretation Comments Chloride Lvl (test code = Chloride Lvl) 103 95-109 [facility] HospitalAivnpliYKUBPINIEYTG1465-36-44 12:43:00 Test Item Value Reference Range Interpretation Comments Glucose Lvl (test code = Glucose Lvl) 93 70-99 [facility] HospitalAbgaklvSXWSSDAUBZFP5758-98-87 12:43:00 Test Item Value Reference Range Interpretation Comments eGFR (test code = eGFR) [address] HospitalXeyptrjIVGFJYSJZC1409-79-94 12:43:00 Test Item Value Reference Range Interpretation Comments Hgb (test code = Hgb) 6.4 12.0-16.[address] [facility] HospitalRztsvgoVYNTTJNARA0162-55-52 12:43:00 Test Item Value Reference Range Interpretation Comments Hct (test code = Hct) 19.8 36.0-48.0 [facility] HeightsGit[facility] OEIFOJW3030-35-27 12:43:00 Test Item Value Reference Range Interpretation Comments ABO/Rh (test code = ABO/Rh) A POS [facility] GARTFFP0738-08-81 12:43:00 Test Item Value Reference Range Interpretation Comments Antibody Scrn (test Negative (01/28/17 7:43 code = Antibody Scrn) AM) [facility] HospitalGfoblkhKZAZCNUKBNPX5060-89-00 12:43:00 Test Item Value Reference Range Interpretation Comments AGAP (test code = AGAP) 14.9 10.0-20.0 [facility] HospitalNszqthbRJAAKAOIPJYR9916-10-26 12:43:00 Test Item Value Reference Range Interpretation Comments CO2 (test code = CO2) 25 24-32 [facility] HospitalUzargttOBLRDODFDQAT2852-95-41 12:43:00 Test Item Value Reference Range Interpretation Comments Calcium Lvl (test code = Calcium Lvl) 8.9 8.5-10.5 [facility] HospitalCxdxkinYNIFZEIGJXZI0166-43-64 12:43:00 Test Item Value Reference Range Interpretation Comments BUN (test code = BUN) 13 7-22 [facility] HospitalYboycldFXNSDJUFVEOP3853-32-72 12:43:00 Test Item Value Reference Range Interpretation Comments Creatinine Lvl (test code = Creatinine 1.07 0.50-1.40 Lvl) [facility] HospitalIarqbscGJKCVKWOGEMP2220-47-79 12:43:00 Test Item Value Reference Range Interpretation Comments Sodium Lvl (test code = Sodium Lvl) 139 135-145 [facility] HospitalEuszvufPHXTIOGDIQTD9543-22-74 12:43:00 Test Item Value Reference Range Interpretation Comments Potassium Lvl (test code = Potassium 3.9 3.5-5.1 Lvl) [facility] HospitalVlblntsYKBEERRVHZPB4709-28-79 12:43:00 Test Item Value Reference Range Interpretation Comments Chloride Lvl (test code = Chloride Lvl) 103 95-109 [facility] HospitalYcplctpVNTCNJPOASZB9590-75-11 12:43:00 Test Item Value Reference Range Interpretation Comments Glucose Lvl (test code = Glucose Lvl) 93 70-99 [facility] HospitalPbkkpykIWZWXGCCJRNU0041-45-98 12:43:00 Test Item Value Reference Range Interpretation Comments eGFR (test code = eGFR) [address] [facility]HyqaqlvOFZXNXGVFY9825-68-72 12:43:00 Test Item Value Reference Range Interpretation Comments Hgb (test code = Hgb) 6.4 12.0-16.[address] [facility] HospitalWiyoosqCYVYUPSYGB7067-06-27 12:43:00 Test Item Value Reference Range Interpretation Comments Hct (test code = Hct) 19.8 36.0-48.0 [facility] IVQXPSF5594-35-07 12:43:00 Test Item Value Reference Range Interpretation Comments ABO/Rh (test code = ABO/Rh) A POS [facility] SCUJCYU0547-18-93 12:43:00 Test Item Value Reference Range Interpretation Comments Antibody Scrn (test Negative (01/28/17 7:43 code = Antibody Scrn) AM) [facility] HospitalMlqbfdgDYGVTGIGYWIN0264-02-41 12:43:00 Test Item Value Reference Range Interpretation Comments AGAP (test code = AGAP) 14.9 10.0-20.0 [facility] HospitalJahfeggUCMWFUODLOCX9792-75-73 12:43:00 Test Item Value Reference Range Interpretation Comments CO2 (test code = CO2) 25 24-32 [facility] HospitalYcnxidbLSXNZYWWBBRE5270-63-15 12:43:00 Test Item Value Reference Range Interpretation Comments Calcium Lvl (test code = Calcium Lvl) 8.9 8.5-10.5 [facility] HospitalCtbeqagGAYYUAMKNYMU8041-99-09 12:43:00 Test Item Value Reference Range Interpretation Comments BUN (test code = BUN) 13 7-22 [facility] HospitalVjzigddTFELSNBCDPEI9516-35-21 12:43:00 Test Item Value Reference Range Interpretation Comments Creatinine Lvl (test code = Creatinine 1.07 0.50-1.40 Lvl) [facility] HospitalXndskriFUADLKZNSPJW7479-55-90 12:43:00 Test Item Value Reference Range Interpretation Comments Sodium Lvl (test code = Sodium Lvl) 139 135-145 [facility] HospitalWxkmsgkCBPMQCHXGIEN0248-87-80 12:43:00 Test Item Value Reference Range Interpretation Comments Potassium Lvl (test code = Potassium 3.9 3.5-5.1 Lvl) [facility] HospitalAuiameiPKRBZVAYSVMO6014-69-56 12:43:00 Test Item Value Reference Range Interpretation Comments Chloride Lvl (test code = Chloride Lvl) 103 95-109 [facility] HospitalTvcmxfaJBXXDWSPSGVB2937-68-64 12:43:00 Test Item Value Reference Range Interpretation Comments Glucose Lvl (test code = Glucose Lvl) 93 70-99 [facility] HospitalIwexougBLVSKAOUECVJ1202-12-64 12:43:00 Test Item Value Reference Range Interpretation Comments eGFR (test code = eGFR) [address] [facility]FzslnkvQQLWDYATXK4584-57-50 12:43:00 Test Item Value Reference Range Interpretation Comments Hgb (test code = Hgb) 6.4 12.0-16.[address] HospitalBhzmqykWEWBNNCIUX0427-73-56 12:43:00 Test Item Value Reference Range Interpretation Comments Hct (test code = Hct) 19.8 36.0-48.0 [facility] XCPLDSF8136-17-49 12:43:00 Test Item Value Reference Range Interpretation Comments ABO/Rh (test code = ABO/Rh) A POS [facility] VQCLYKZ4806-48-46 12:43:00 Test Item Value Reference Range Interpretation Comments Antibody Scrn (test Negative (01/28/17 7:43 code = Antibody Scrn) AM) [facility] HospitalYgprhpkVTTMKMOAJPCH8681-09-97 12:43:00 Test Item Value Reference Range Interpretation Comments AGAP (test code = AGAP) 14.9 10.0-20.0 [facility] HospitalOgemvnbKDCSVWJKLJPR0092-48-44 12:43:00 Test Item Value Reference Range Interpretation Comments CO2 (test code = CO2) 25 24-32 [facility] HospitalAkjhgouAKNMQVLFCURV3172-99-44 12:43:00 Test Item Value Reference Range Interpretation Comments Calcium Lvl (test code = Calcium Lvl) 8.9 8.5-10.5 [facility] HospitalCoujqveJTBZLVUTEMES8996-15-57 12:43:00 Test Item Value Reference Range Interpretation Comments BUN (test code = BUN) 13 7-22 [facility] HospitalAumouleALIORJYUOBZD4534-20-88 12:43:00 Test Item Value Reference Range Interpretation Comments Creatinine Lvl (test code = Creatinine 1.07 0.50-1.40 Lvl) [facility] HospitalVyeyaiiRXEYHZCIPTEZ3093-63-45 12:43:00 Test Item Value Reference Range Interpretation Comments Sodium Lvl (test code = Sodium Lvl) 139 135-145 [facility] HospitalAqufzkeKUUUVKPVGDYY5318-18-75 12:43:00 Test Item Value Reference Range Interpretation Comments Potassium Lvl (test code = Potassium 3.9 3.5-5.1 Lvl) [facility] HospitalNlapnccLJJMSPZABMVN8832-77-32 12:43:00 Test Item Value Reference Range Interpretation Comments Chloride Lvl (test code = Chloride Lvl) 103 95-109 [facility] HospitalQsbyftdCJJDNNYXMDUB6166-26-80 12:43:00 Test Item Value Reference Range Interpretation Comments Glucose Lvl (test code = Glucose Lvl) 93 70-99 [facility] HospitalKsfntrkFBPMHXPHMPPS9329-14-42 12:43:00 Test Item Value Reference Range Interpretation Comments eGFR (test code = eGFR) [address] [facility]AevdgdaSTGOPPJZTK9135-57-05 12:43:00 Test Item Value Reference Range Interpretation Comments Hgb (test code = Hgb) 6.4 12.0-16.0 [facility]villeXrxsznyWYNVOOAXES5851-84-34 12:43:00 Test Item Value Reference Range Interpretation Comments Hct (test code = Hct) 19.8 36.0-48.0 [facility] UQTVKSK3767-94-28 12:43:00 Test Item Value Reference Range Interpretation Comments ABO/Rh (test code = ABO/Rh) A POS [facility] BAWDRFS0411-56-50 12:43:00 Test Item Value Reference Range Interpretation Comments Antibody Scrn (test Negative (01/28/17 7:43 code = Antibody Scrn) AM) [facility] HospitalSiutleaHRTOFQWFUOUF5707-96-07 12:43:00 Test Item Value Reference Range Interpretation Comments AGAP (test code = AGAP) 14.9 10.0-20.0 [facility] HospitalBieyknxFFECLWJIZZZJ4181-56-64 12:43:00 Test Item Value Reference Range Interpretation Comments CO2 (test code = CO2) 25 24-32 [facility] HospitalBcfyawvXCZBBPUBLKOK4722-45-96 12:43:00 Test Item Value Reference Range Interpretation Comments Calcium Lvl (test code = Calcium Lvl) 8.9 8.5-10.5 [facility] HospitalLjeynrbWOKSXEBNHPPZ9183-05-66 12:43:00 Test Item Value Reference Range Interpretation Comments BUN (test code = BUN) 13 7-22 [facility] HospitalIcftfrbGRDMUXRQOOQU9152-69-61 12:43:00 Test Item Value Reference Range Interpretation Comments Creatinine Lvl (test code = Creatinine 1.07 0.50-1.40 Lvl) [facility] HospitalWxfvfmnBEARLENXQUAK9643-96-49 12:43:00 Test Item Value Reference Range Interpretation Comments Sodium Lvl (test code = Sodium Lvl) 139 135-145 [facility] HospitalBzdozmjYEECEGMUWWDQ3828-18-76 12:43:00 Test Item Value Reference Range Interpretation Comments Potassium Lvl (test code = Potassium 3.9 3.5-5.1 Lvl) [facility] HospitalFkgzmalYRMDPOSRYDFB7783-78-90 12:43:00 Test Item Value Reference Range Interpretation Comments Chloride Lvl (test code = Chloride Lvl) 103 95-109 [facility] HospitalBuexyzuCAFZXLTMCVDB7045-91-10 12:43:00 Test Item Value Reference Range Interpretation Comments Glucose Lvl (test code = Glucose Lvl) 93 70-99 [facility] HospitalRnoxretGPGMMKRLHLPC1288-99-61 12:43:00 Test Item Value Reference Range Interpretation Comments eGFR (test code = eGFR) [address] [facility]JjhmhmeDIRQKHQWAV6188-41-57 12:43:00 Test Item Value Reference Range Interpretation Comments Hgb (test code = Hgb) 6.4 12.0-16.[address] [facility]JjxgqxjTZDDVFETDO0567-64-79 12:43:00 Test Item Value Reference Range Interpretation Comments Hct (test code = Hct) 19.8 36.0-48.0 [facility] YTTEPNZ1198-45-29 12:43:00 Test Item Value Reference Range Interpretation Comments ABO/Rh (test code = ABO/Rh) A POS [facility] WZIWQGN8276-14-79 12:43:00 Test Item Value Reference Range Interpretation Comments Antibody Scrn (test Negative (01/28/17 7:43 code = Antibody Scrn) AM) [facility] HospitalWjjovxjDSXTWSGZDWPQ7936-31-08 12:43:00 Test Item Value Reference Range Interpretation Comments AGAP (test code = AGAP) 14.9 10.0-20.0 [facility] HospitalRqrorcjQWAKLETFPLOQ9926-22-08 12:43:00 Test Item Value Reference Range Interpretation Comments CO2 (test code = CO2) 25 24-32 [facility] HospitalFjdhhvoSUBJXAKZCPHB9486-55-89 12:43:00 Test Item Value Reference Range Interpretation Comments Calcium Lvl (test code = Calcium Lvl) 8.9 8.5-10.5 [facility] HospitalUpcufniXIZXXCNFVMYH9425-31-00 12:43:00 Test Item Value Reference Range Interpretation Comments BUN (test code = BUN) 13 7-22 [facility] HospitalOvgdzoaLAFCPSINCDGW6231-89-81 12:43:00 Test Item Value Reference Range Interpretation Comments Creatinine Lvl (test code = Creatinine 1.07 0.50-1.40 Lvl) [facility] HospitalDbioopdTTAPMBQBXDFT8414-55-26 12:43:00 Test Item Value Reference Range Interpretation Comments Sodium Lvl (test code = Sodium Lvl) 139 135-145 [facility] HospitalEgusaekMEBEDMZGULJU0764-04-96 12:43:00 Test Item Value Reference Range Interpretation Comments Potassium Lvl (test code = Potassium 3.9 3.5-5.1 Lvl) [facility] HospitalZnguqcwMMZQWGZYTLKY3556-29-36 12:43:00 Test Item Value Reference Range Interpretation Comments Chloride Lvl (test code = Chloride Lvl) 103 95-109 [facility] HospitalShjsipvJUISAIUQHXYF7988-76-90 12:43:00 Test Item Value Reference Range Interpretation Comments Glucose Lvl (test code = Glucose Lvl) 93 70-99 [facility] HospitalFqqajseAQTVOJNVAKOI8278-81-50 12:43:00 Test Item Value Reference Range Interpretation Comments eGFR (test code = eGFR) 54 [facility]villeZjmdffsCJGCLROANP6997-13-46 12:43:00 Test Item Value Reference Range Interpretation Comments Hgb (test code = Hgb) 6.4 12.0-16.0 [facility] GreenvilleZnefwxiWLZHENPBCT9568-14-51 12:43:00 Test Item Value Reference Range Interpretation Comments Hct (test code = Hct) 19.8 36.0-48.0 [facility] QYNYRIP1800-81-90 12:43:00 Test Item Value Reference Range Interpretation Comments ABO/Rh (test code = ABO/Rh) A POS [facility] [employer] [facility] KBFXCNT3718-11-16 12:43:00 Test Item Value Reference Range Interpretation Comments Antibody Scrn (test Negative (01/28/17 7:43 code = Antibody Scrn) AM) [facility] HospitalDdogqwyXLVZMAMJAOHO3966-96-11 12:43:00 Test Item Value Reference Range Interpretation Comments AGAP (test code = AGAP) 14.9 10.0-20.0 [facility] HospitalIrnzmmpZAKYKYHBRQWB1225-70-87 12:43:00 Test Item Value Reference Range Interpretation Comments CO2 (test code = CO2) 25 24-32 [facility]HatcujqESLHQFVOJDOD6665-36-81 12:43:00 Test Item Value Reference Range Interpretation Comments Calcium Lvl (test code = Calcium Lvl) 8.9 8.5-10.5 [facility] HospitalMovbywqZSSOAUMDMFEI3840-37-76 12:43:00 Test Item Value Reference Range Interpretation Comments BUN (test code = BUN) 13 7-22 [facility] TexasFckkgsmGGNVDGLHHKOZ8585-26-92 12:43:00 Test Item Value Reference Range Interpretation Comments Creatinine Lvl (test code = Creatinine 1.07 0.50-1.40 Lvl) [facility] HospitalNefrqflNZGVWKLWLXYR7133-00-43 12:43:00 Test Item Value Reference Range Interpretation Comments Sodium Lvl (test code = Sodium Lvl) 139 135-145 [facility] HospitalVhnesidVTDXWBHJWLPA4854-55-16 12:43:00 Test Item Value Reference Range Interpretation Comments Potassium Lvl (test code = Potassium 3.9 3.5-5.1 Lvl) [facility] HospitalIfnmkmjPGWZNYTCPVZS6504-82-33 12:43:00 Test Item Value Reference Range Interpretation Comments Chloride Lvl (test code = Chloride Lvl) 103 95-109 [facility] HospitalOkoagbiVZCWEVJFKFYR7217-90-27 12:43:00 Test Item Value Reference Range Interpretation Comments Glucose Lvl (test code = Glucose Lvl) 93 70-99 [facility]vineKcyemxxPUCKZPTTEBKC6818-60-98 12:43:00 Test Item Value Reference Range Interpretation Comments eGFR (test code = eGFR) 54 [facility] EpoalseZWBKPULMYO2653-09-72 12:43:00 Test Item Value Reference Range Interpretation Comments Hgb (test code = Hgb) 6.4 12.0-16.0 [facility] ZmprzlmIDRVJDEEFE7105-13-78 12:43:00 Test Item Value Reference Range Interpretation Comments Hct (test code = Hct) 19.8 36.0-48.0 [facility] NephroGenexannBLOOD BANK FIGCSBF7692-70-27 12:43:00Negative (01/28/17 7:43 AM) [facility] IozwbtmTJUVKGDDGEWD1708-99-86 12:43:0014.9[facility] HermannELECTROLYTES 2017-01-28 12:43:0025[facility] BnvdojeYXVKDVOGGUUD9237-64-04 12:43:008.9[facility] QzrknzfRUZVYJNAHATE8544-19-19 12:43:0013[facility] EetgiorCYUVAHMDPCCG8628-10-77 12:43:001.07[facility] TrarkxzNBRVNKEPVXMU3860-77-07 12:43:90714Vptueymi Sushil NKMJCHRZDFGK1852-98-22 12:43:003.9[facility] SvuapyiPGASMBSNLAGM4062-31-30 12:43:55787Owhnystp TxlkovxHADCOEOHOQEV2937-71-49 12:43:0093[facility] Sushil LGNTNBQIURNZ3426-14-07 12:43:0054[facility] YyztjpuHIVCKPGVDD7191-59-37 12:43:00 6.4[facility] NeogauyRIBTRPBJHR0501-39-35 12:43:0019.8[facility] HermannBLOOD BANK RQGKUPS6674-20-47 12:43:00Negative (01/28/17 7:43 AM)[facility] HermannELECTROLYTES 2017-01-28 12:43:0014.9[facility] KmdqtrbGCALLKBFUWKB1429-99-89 12:43:0025[facility] RgjvqauQZFAGVAJBGBB8065-15-62 12:43:008.9[facility] GyfktrhPDHURWJSPTGI6978-87-62 12:43:0013[facility] MaiiwhqFZEZPCYKSDDO2317-49-00 12:43:001.07[facility] Sushil UCIKKLQVMNQP1557-06-30 12:43:94454Dsiuocsy CdpbohfMPSUZCXYSNEQ3076-87-43 12:43:003.9[facility] IiibzofBVOCRYMWPFBQ2884-50-29 12:43:61767Jmhemyjm [place] ZBMDPNHZHWUM4973-45-76 12:43:0093[facility] RjkmqkxNQFAIWEIQVZG2896-34-59 12:43:00 54[facility] UshoqccCSCWUABVLR0517-79-38 12:43:006.4[facility] HermannHEMATOLOGY 2017-01-28 12:43:0019.8[facility] HermannBLOOD BANK CKCTCMO5254-56-03 12:43:00 Negative (01/28/17 7:43 AM)[facility] MmfxvvxFZNJKRHOZZWT2135-76-04 12:43:0014.9 [facility] TvpipjeAPHWWUFZVLPY7419-95-81 12:43:0025[facility] HermannELECTROLYTES 2017-01-28 12:43:008.9[facility] UxbimmxZYPCCMUCYPQX8865-09-83 12:43:0013[facility] QkdnavaYURDHWVOMYNY4279-39-36 12:43:001.07[facility] RdgvkjyAUMNUCNAJYBA0697-93-69 12:43:01413Kcwgwrrh PnhtydbLNYDDLHVURVO9036-38-40 12:43:003.9[facility] [place] SBYBXMDYAOSR4809-66-48 12:43:03624Fnocayev LjtzmezBYMEWIWKSSLE7651-14-23 12:43:0093[facility] FtprimqTNQBEXTSYWYV1413-38-55 12:43:0054[facility] Sushil JKSKULNAEZ8091-41-57 12:43:006.4[facility] RlvojknZGESPQCPQO6956-10-18 12:43:00 19.8[facility] HermannBLOOD BANK VHETAPY6164-86-46 12:43:00 Test Item Value Reference Range Interpretation Comments ABO/Rh (test code = ABO/Rh) A POS [facility] AXJRVKL8325-28-51 12:43:00 Test Item Value Reference Range Interpretation Comments Antibody Scrn (test Negative (01/28/17 7:43 code = Antibody Scrn) AM) [facility] HospitalIdoydvsCGDUAHWSLLLI6953-01-12 12:43:00 Test Item Value Reference Range Interpretation Comments AGAP (test code = AGAP) 14.9 10.0-20.0 [facility] HospitalYojsfihJXWQBAEEJYAG1135-50-75 12:43:00 Test Item Value Reference Range Interpretation Comments CO2 (test code = CO2) 25 24-32 [facility] HospitalBfcfdbaEOYSOVZTBJXB5671-00-37 12:43:00 Test Item Value Reference Range Interpretation Comments Calcium Lvl (test code = Calcium Lvl) 8.9 8.5-10.5 [facility] HospitalUkbbmulUQTRSGSLCWBS5577-17-63 12:43:00 Test Item Value Reference Range Interpretation Comments BUN (test code = BUN) 13 - [facility] HospitalHvevzddCPELKCLONULH9424-85-60 12:43:00 Test Item Value Reference Range Interpretation Comments Creatinine Lvl (test code = Creatinine 1.07 0.50-1.40 Lvl) [facility] HospitalTsxgasjVCAKMGNZZZNJ0024-57-38 12:43:00 Test Item Value Reference Range Interpretation Comments Sodium Lvl (test code = Sodium Lvl) 139 135-145 [facility] HospitalPpsqthpQVBFWFRCEXWA3620-72-89 12:43:00 Test Item Value Reference Range Interpretation Comments Potassium Lvl (test code = Potassium 3.9 3.5-5.1 Lvl) [facility] HospitalFekzjxfKXOWXJCNVKBP3937-73-84 12:43:00 Test Item Value Reference Range Interpretation Comments Chloride Lvl (test code = Chloride Lvl) 103 95-109 [facility] HospitalWzhcjoiSNXVWXICWFJQ2596-85-58 12:43:00 Test Item Value Reference Range Interpretation Comments Glucose Lvl (test code = Glucose Lvl) 93 70-99 [facility] HospitalDvuzsgwWXADTFEHARLL9795-21-36 12:43:00 Test Item Value Reference Range Interpretation Comments eGFR (test code = eGFR) [address] [facility]HaudtfbBXFVQEFDLA4596-53-55 12:43:00 Test Item Value Reference Range Interpretation Comments Hgb (test code = Hgb) 6.4 12.0-16.[address] [facility] HospitalDreyxviXDSFQJIHXF8965-55-18 12:43:00 Test Item Value Reference Range Interpretation Comments Hct (test code = Hct) 19.8 36.0-48.0 [facility] BXSQUTO5355-81-71 12:43:00 Test Item Value Reference Range Interpretation Comments ABO/Rh (test code = ABO/Rh) A POS [facility] [employer] [facility] BQKCOJS3541-39-88 12:43:00 Test Item Value Reference Range Interpretation Comments Antibody Scrn (test Negative (01/28/17 7:43 code = Antibody Scrn) AM) [facility] HospitalGzflxgpIPGXRCZCTHLX2322-78-28 12:43:00 Test Item Value Reference Range Interpretation Comments AGAP (test code = AGAP) 14.9 10.0-20.0 [facility] HospitalOyiwnskDNMCDWXTQTNY6454-69-93 12:43:00 Test Item Value Reference Range Interpretation Comments CO2 (test code = CO2) 25 24-32 [facility] HospitalCcjjrucIDDAAWLMCPJK9082-61-46 12:43:00 Test Item Value Reference Range Interpretation Comments Calcium Lvl (test code = Calcium Lvl) 8.9 8.5-10.5 [facility]HwgjkmcOAVDATLJMHKH7463-66-10 12:43:00 Test Item Value Reference Range Interpretation Comments BUN (test code = BUN) 13 7-22 [facility] TexasOtzsxolEBPKQICYLAUQ4886-38-50 12:43:00 Test Item Value Reference Range Interpretation Comments Creatinine Lvl (test code = Creatinine 1.07 0.50-1.40 Lvl) [facility] HospitalHmdlekuUFSEZHMZLHRR1681-72-19 12:43:00 Test Item Value Reference Range Interpretation Comments Sodium Lvl (test code = Sodium Lvl) 139 135-145 [facility] HospitalAbnuhixKGPEKQLWKXQZ4796-76-02 12:43:00 Test Item Value Reference Range Interpretation Comments Potassium Lvl (test code = Potassium 3.9 3.5-5.1 Lvl) [facility] HospitalBkathonKTPDBBIXZVIG8515-46-69 12:43:00 Test Item Value Reference Range Interpretation Comments Chloride Lvl (test code = Chloride Lvl) 103 95-109 [facility] HospitalQimwvhuOFRUWKSLUJZA4461-19-82 12:43:00 Test Item Value Reference Range Interpretation Comments Glucose Lvl (test code = Glucose Lvl) 93 70-99 [facility] HospitalOmocjdlJEOVFQPHMYVY8680-63-18 12:43:00 Test Item Value Reference Range Interpretation Comments eGFR (test code = eGFR) 54 [facility] TgbzzarNOBDPIYCBT2882-81-70 12:43:00 Test Item Value Reference Range Interpretation Comments Hgb (test code = Hgb) 6.4 12.0-16.0 [facility] AggsgwmPXCXRTRYIQ5146-56-80 12:43:00 Test Item Value Reference Range Interpretation Comments Hct (test code = Hct) 19.8 36.0-48.0 [facility] ZKSXDXX1203-73-45 12:43:00Negative (01/28/17 7:43 AM) [facility] VgyltluHHEFAWELMBWD5111-56-93 12:43:0014.9[facility] HermannELECTROLYTES 2017-01-28 12:43:0025[facility] OeobqhaUMKMPKLVLRLH0082-26-10 12:43:008.9[facility] BoouxonVVOZBBTAVDCQ4954-62-07 12:43:0013[facility] YrcjkkxLPHJVNMGFDKL6914-47-78 12:43:001.07[facility] IfmkighXQMEYLJBPYUD6327-00-58 12:43:25136Iyxaqlav Sushil SSNWTYNXLQDI9516-08-17 12:43:003.9[facility] MxvrtkhTSDULMHEBUJZ2860-30-38 12:43:64687Tjlqcixm EzzavmbATAQPTULPCKT6716-49-28 12:43:0093[facility] [place] IRNHJWAGDSFL4062-93-39 12:43:0054[facility] HifmmfxWVFIMFFPKR6125-24-42 12:43:00 6.4[facility] KcrakreXNBHZRMDAS4030-30-81 12:43:0019.8[facility] [place] Consult Notes Date/Time Note Provider Source 2023-06-17 Associated Order(s): CONSULT NEPHROLOGY IM-NEPHR OLY [facility] 12:27:45-00:00 Formatting of this note is [...] N/A 06/02/2020 Surgeon: Echo Botello MD; Location: [facility] OR Location ESOPHAGOGASTRODUODENOSCOPY N/A 06/02/2020 Surgeon: Echo Botello MD; Location: [facility] OR Location HIP CLOSED REDUCTION (SHX) Left 02/14/2018 Surgeon: Mason King MD; Location: [facility] Location SPINE SURGERY TOTAL HIP ARTHROPLASTY Left TOTAL HIP ARTHROPLASTY Right 04/18/2014 Surgeon: Julian Flores MD; Location: [facility]ATION Family History Problem Relation [...] PM CDT 2023-06-13 Associated Order(s): CONSULT ADULT CONSUMER RECRUITER ALEXANDRIA Rascon PT [facility] 11:45:27-00:00 Formatting of this note is different from the or iginal. Patient agreeable to working with physical therapy. Patient met semi reclined in bed. Recommend nursing staff util rosanne michel A to safely assist patient with mobility out [...] 06/02/2020 Surgeon: Echo Botello MD; Location: [facility] OR Location ESOPHAGOGASTRODUODENOSCOPY N/A 06/02/2020 Surgeon: Echo Botello MD; Location: [facility] OR Location HIP CLOSED REDUCTION (SHX) Left 02/14/2018 Surgeon: Mason King MD; Location: [facility] Location SPINE SURGERY TOTAL HIP ARTHROPLASTY Left TOTAL HIP ARTHROPLASTY Right 04/18/2014 Surgeon: Julian Flores MD; Location: [facility] Prior Living Situation: lives alone and in a yash se. DME: Single Point Cane, Rolling Walker Prior level of Mobility: community ambulation, h ouse hold ambulation Suspected ischemic or hemorraghic stroke:No Subjective: Patient stated she came into hospita due to vomiting. Patient/Family Goals: Be able to go home. Patient/Family verbalizes understanding of condi tion: Yes PAIN: denies pain before and after session COMMUNICATION Primary Language: Hebrew Able to Verbalize needs: Yes Vision:good; no [...] Treatment Time in Minutes: 20 min Kajal Rascon, PT [place] PT License [id number] [facility] Department (phone) (fax) Electronically signed by Kajal Rascon PT at 0 06/13/2023 1:05 PM CDT 2023-06-10 Associated Order(s): CONSULT CARDIOLOGY [facility] 08:13:54-00:00 Formatting of this note is different from the or iginal. [facility] Cardiology Consult PCP: Guilherme Waters Date of Service: 06/10/2023 CHIEF COMPLAINT/reason for consult: Troponin kari vation HISTORY OF PRESENT ILLNESS This is a 73 years old femal e with past medical history of paranoid schizophrenia and anxiety etc who came to [facility] hospital for nausea, vomiting and diarrhea. Patient was [...] Right 05/24/2014 Surgeon: Julian Flores MD; Location: [facility] OR LOCATION COLONOSCOPY N/A 06/02/2020 Surgeon: Echo Botello MD; Location: [facility] OR Location ESOPHAGOGASTRODUODENOSCOPY N/A 06/02/2020 Surgeon: Echo Botello MD; Location: [facility] OR [facility] HIP CLOSED REDUCTION (SHX) Left 02/14/2018 Surgeon: Mason King MD; Location: [facility] Location SPINE SURGERY TOTAL HIP ARTHROPLASTY Left TOTAL HIP ARTHROPLASTY Right 04/18/2014 Surgeon: Julian Flores MD; [facility] Family History Problem Relation Age [...] further assistance. Shane Lester MD, FACC, DOUGIE [place] Division of Cardiovascular Medicine [facility] Electronically signed by Shane Lester MD at 8:17 AM CDT History and Physical Notes Date/Time Note Provider Source 2023-06-10 Formatting of this note is different from the or iginal. [facility] 00:13:43-00:00 MEDICINE MEGADC ADMIT H&P Date of Service: 06/10/2023 CHIEF [...] N/A 06/02/2020 Surgeon: Echo Botello MD; Location: [facility] OR Location ESOPHAGOGASTRODUODENOSCOPY N/A 06/02/2020 Surgeon: Echo Botello MD; Location: [facility] OR Location HIP CLOSED REDUCTION (SHX) Left 02/14/2018 Surgeon: Mason King MD; [facility] Location SPINE SURGERY TOTAL HIP ARTHROPLASTY Left TOTAL HIP ARTHROPLASTY Right 04/18/2014 Surgeon: Julian Flores MD; Location: [facility] LOCATION Family History Problem Relation Age [...] (!) 169/83 Pulse: 80 80 80 Resp: 21 20 18 Temp: 37.1 ?C (98.7 ?F) TempSrc: Oral SpO2: 96% 97% 95% Weight: Height: Physical Exam Vitals and nursing note reviewed. Constitutional: General: She is not in acute distress. Appearance: Normal appeara nce. She is not ill-appearing, toxic-appearing or diaphoretic. [...] Dianne Vergara (child) - Electronically signed by Anige Mathis MD at 0 06/10/2023 6:51 AM CDT Notes Date/Time Note Provider Source 2023-06-18 Formatting of this note might be differe nt from the original. Altagracia Garcia RN [facility] 11:19:58-00:00 TRANSITIONAL CARE MANAGEMENT ASSESSMENT 06/18/2023 Trish Vergara [id number] Trish Vergara is a 73 ye ar old /White female was admitted on 06/09/23 to [facility]. She was discharged on 06/17/23 with discharge disposition of HR- Routine Discharge. Admitting Physician: Angie Mathis Discharge Diagnosis: Possibly due to polypharmac y. - Mentation seems at baseline No linked episodes TCM Fgn-sjej-hs-face outreach documentation: Discharge Assessment Chart Assessed: 06/18/23 Chart Reviewed - Post Discha rge Call Deferred due to Change in Discharge Status.: Discharged to SNF ([facility]) TCM Outreach Completed: 06/18/23 Future Appointments: 2023-06-17 Summary: Discharge Kelsey Aden RN [facility] 19:22:32-00:00 Pt given printed and verbal discharge [...] resp reg unlabored, skin w/d, pt leaving [facility] with steady gait, in no apparent distress, 2023-06-17 [facility] 16:36:42-00:00 Problem: Discharge Planning Goal: Adequate [...] Resolved 2023-06-17 Summary: ambulance transportation Les sebastian [facility] 16:30:33-00:00 RN Spoke to Mai at [facility] to set up transportation for discharge to [facility] 1.5-2 hours. Report called. Family notified. 2023-06-17 [facility] 01:51:33-00:00 Problem: Discharge Planning Goal: Adequate [...] in pain sensation Outcome: Progressing as expected [facility] 2023-06-16 Formatting of this note might be differe nt from the original. Norma Osuna RN [facility] 16:12:00-00:00 Problem: Discharge Planning Goal: Adequate [...] Progressing as expected Electronically signed by Norma Osuna, LAVONNE at 7:56 PM [facility] 2023-06-16 Formatting of this note might be differe nt from the original. Mireya Gauthier [facility] 00:51:23-00:00 Erwin BANERJEE Problem: Discharge Planning [...] sensation Outcome: Progressing as expected T 2023-06-15 [facility] 17:08:00-00:00 Problem: Discharge Planning Goal: Adequate [...] by Norma Osuna RN at 8:03 PM [facility] 2023-06-15 [facility] 00:25:35-00:00 Problem: Discharge Planning Goal: Adequate [...] in pain sensation Outcome: Progressing as expected [facility] 2023-06-14 [facility] 17:52:00-00:00 Problem: Discharge Planning Goal: Adequate [...] Osuna RN at 6:49 PM CDT 2023-06-14 [facility] 03:57:25-00:00 Problem: Discharge Planning Goal: Adequate [...] in pain sensation Outcome: Progressing as expected 2023-06-13 Formatting of this note might be differe nt from the original. Kathy Sommer [facility] 16:54:33-00:00 RN Problem: Discharge Planning Goal: [...] in pain sensation Outcome: Progressing as expected 2023-06-12 Formatting of this note might be differe nt from the original. Pam Taylor RN [facility] 20:49:51-00:00 Problem: Discharge Planning Goal: Adequate [...] Pam Taylor RN at 08/2023 8:49 PM CDT 2023-06-12 Formatting of this note might be differe nt from the original. Pippa Marroquin RN [facility] 17:12:06-00:00 Problem: Discharge Planning Goal: Adequate [...] in pain sensation Outcome: Progressing as expected 2023-06-11 Summary: pateint does not tolerate ensure [facility] 22:00:00-00:00 Attempted to get the patient to take a nutritional supplement last night and when the patient tasted it she got nauseated and vomited. Patient was given nausea medication and was able to drink water afterwards 2023-06-11 [facility] 20:25:54-00:00 Problem: Discharge Planning Goal: Adequate [...] in pain sensation Outcome: Progressing as expected 2023-06-11 Formatting of this note might be differe nt from the original. Daisy Rocha RN [facility] 17:11:50-00:00 Problem: Discharge Planning Goal: Adequate [...] nt from the original. Tyson Vasquez RN [facility] 23:59:21-00:00 Problem: Discharge Planning Goal: Adequate [...] nt from the original. Adrienne Rhodes RN [facility] 10:58:01-00:00 Problem: Discharge Planning Goal: Adequate [...] Rhodes RN at 0 06/10/2023 10:58 AM T 2023-06-10 Formatting of this note might be differe nt from the original. Gauri Quiñones [facility] 00:12:56-00:00 Patient admitted to [facility] for diagnosis of wea knshay. RN Patient agrees to admission, discussed plan of c are with patient and family. Patient is awake, A&Ox 4, RR even and unlabored on RA. Color appropriate for race. PIV intact x 1. No adverse reaction to medications administered while in ED. Belongings with patient to unit. T 2023-06-10 [facility] 00:08:29-00:00 Nurse Report Report given to Nicolas Ortiz RN. Chief complaint, assessment findings, infusion verify and orders reviewed. Gauri Quiñones RN T 2023-06-09 Formatting of this note might be differe nt from the original. Maureen Scotty Johns [facility] 19:14:27-00:00 Pt arrives in wheelchair bro ught in by son, who reports pt is very weak and about to pass out. Pt reports that she has been throwing up and having diarrhea since . Son reports that pt lives ngozi RN e and is generally able to take care of herself fully. 2023-06-09 Associated Order(s): EKG-12 Lead ONCE [facility] 18:57:00-00:00 Pre-Procedure Diagnose(s): Weakness PHYSICIAN [facility] Post-Procedure Diagnose(s): Weakness Formatting of this note is different from the or iginal. [facility] Emergency Department Note Patient Name: Trish Vergara Date of : 1950 73 year old female Treatment Room: [place] [address] Primary Care Physician: Guilherme Watesr Patient Escorted by: Family [5] Mode of [...] Son reports that Patient has PCP is [place] and concern for polypharmacy and daily alcohol [...] Right 04/18/2014 Surgeon: Julian Flores MD; Location: [facility] OR LOCATION CLOSED REDUCTION Right 05/24/2014 Surgeon: Julian Flores MD; Location: [facility] OR LOCATION COLONOSCOPY N/A 06/02/2020 Surgeon: Echo Botello MD; Location: [facility] OR [facility] ESOPHAGOGASTRODUODENOSCOPY N/A 06/02/2020 Surgeon: Echo Botello MD; Location: [facility] OR Location HIP CLOSED REDUCTION (SHX) Left 02/14/2018 Surgeon: Mason King MD; Location: [facility] Location SPINE SURGERY TOTAL HIP ARTHROPLASTY Left TOTAL HIP ARTHROPLASTY Right 04/18/2014 Surgeon: Julian Flores MD; Location: [facility] OR LOCATION Review of Systems: Review of [...] Dictated by Resident: Lamar stone I, Enrique Pearson MD., have reviewed this st udy and [...] 0.01 - 0.07 10*3/uL COMP. METABOLIC PANEL (91361) - Abnormal NA 136 135 - 145 [...] CONTRAST CBC WITH DIFF COMP. METABOLIC PANEL (76282) URINALYSIS TROPONIN I LIPASE COVID-19 (ID NOW [...] on file. ED COURSE Diagnosis/Impression as of 06/09/230 Weakness Procedures: EKG-12 Lead ONCE Date/Time: 06/09/2023 8:42 PM Performed by: Jonel Richard MD Authorized by: Jonel Richard MD ECG reviewed by ED Physician in the absence of a short haul driver: yes Previous ECG: Previous ECG: Unavailable Interpretation: [...] Richard MD at 0 06/09/2023 10:21 PM [facility] 2020-05-26 PROCEDURE INFORMATION: ONEL rouse 16:20:00-00:00 Exam: [...] Albino Woodard MD On 05/26/2020 16:49:49; VR-WHWAN0 [id number] 2020-05-26 PROCEDURE INFORMATION: ONEL rouse 16:20:00-00:00 Exam: [...] Albino Woodard MD On 05/26/2020 16:49:49; VR-WHWAN0 [id number] 2020-05-26 PROCEDURE INFORMATION: ONEL rouse 16:20:00-00:00 Exam: [...] Albino Woodard MD On 05/26/2020 16:49:49; VR-WHWAN0 [id number] 2020-05-26 PROCEDURE INFORMATION: ONEL Sebas rouse 16:20:00-00:00 Exam: XR Chest, 1 View [...] Albino Woodard MD On 05/26/2020 16:49:49; VR-WHWAN0 [id number] 2020-05-26 PROCEDURE INFORMATION: ONEL rouse 16:20:00-00:00 Exam: [...] for complete assessment. IMPRESSION: No acute findings. lAbino Woodard MD On 05/26/2020 16:49:49; VR-WHWAN0 [id number] 2020-05-26 PROCEDURE INFORMATION: ONEL rouse 16:20:00-00:00 Exam: [...] Albino Woodard MD On 05/26/2020 16:49:49; VR-WHWAN0 [id number] 2020-05-26 PROCEDURE INFORMATION: ONEL rouse 16:20:00-00:00 Exam: [...] findings. Albino Woodard MD On 05/26/2020 16:49:49; RICKIE-WHWAN0 [id number] 2020-05-26 PROCEDURE INFORMATION: ONEL rouse 16:20:00-00:00 Exam: [...] 16:40:48; VR-CRM__09 1719 2020-05-26 PROCEDURE INFORMATION: ONEL Mullen rosi 16:20:00-00:00 Exam: XR [place] Exam date [...] findings. Albino Woodard MD On 05/26/2020 16:49:49; ALAYNAWHWAN0 [id number] 2020-05-26 PROCEDURE INFORMATION: ONEL rouse 16:20:00-00:00 Exam: [...] Albino Woodard MD On 05/26/2020 16:49:49; VR-WHWAN0 [id number] 2017-11-24 EXAM: XR LEFT HIP 2 VIEW ONEL Trish marcio [facility] 18:15:00-00:00 DATE: 11/24/2017 at 1757 hours Ce nter INDICATION: - need cross table lateral COMPARISON: Pelvic radiographs 11/24/2016 at 1740 hours TECHNIQUE: 2 views of the hip including the pelv is FINDINGS: Left hip joint is well aligned. The hip dislocation remains reduced. No additional significant interval changes in the prior study. IMPRESSION: Left hip joint dislocation is reduce 2017-11-24 EXAM: XR LEFT HIP 2 VIEW Trish buckley [facility] 18:15:00-00:00 DATE: 11/24/2017 at 1757 hours Ce nter INDICATION: - need cross table lateral COMPARISON: Pelvic radiographs 11/24/2016 at 1740 hours TECHNIQUE: 2 views of the hip including the pelv is FINDINGS: Left hip joint is well aligned. The hip dislocation remains reduced. No additional significant interval changes in the prior study. IMPRESSION: Left hip joint dislocation is reduce 2017-11-24 EXAM: XR LEFT HIP 2 VIEW Trish buckley [facility] 18:15:00-00:00 DATE: 11/24/2017 at 1757 hours Ce nter INDICATION: - need cross table lateral COMPARISON: Pelvic radiographs 11/24/2016 at 1740 hours TECHNIQUE: 2 views of the hip including the pelv is FINDINGS: Left hip joint is well aligned. The hip dislocation remains reduced. No additional significant interval changes in the prior study. IMPRESSION: Left hip joint dislocation is reduce 2017-11-24 EXAM: XR LEFT HIP 2 VIEW Trish buckley [facility] 18:15:00-00:00 DATE: 11/24/2017 at 1757 hours Ce nter INDICATION: - need cross table lateral COMPARISON: Pelvic radiographs 11/24/2016 at 1740 hours TECHNIQUE: 2 views of the hip including the pelv is FINDINGS: Left hip joint is well aligned. The hip dislocation remains reduced. No additional significant interval changes in the prior study. IMPRESSION: Left hip joint dislocation is reduce 2017-11-24 EXAM: XR LEFT HIP 2 VIEW Trish buckley [facility] 18:15:00-00:00 DATE: 11/24/2017 at 1757 hours Ce nter INDICATION: - need cross table lateral COMPARISON: Pelvic radiographs 11/24/2016 at 1740 hours TECHNIQUE: 2 views of the hip including the pelv is FINDINGS: Left hip joint is well aligned. The hip dislocation remains reduced. No additional significant interval changes in the prior study. IMPRESSION: Left hip joint dislocation is reduce 2017-11-24 EXAM: XR LEFT HIP 2 VIEW Trish buckley [facility] 18:15:00-00:00 DATE: 11/24/2017 at 1757 hours Ce [...] XR LEFT HIP 2 VIEW Trish buckley [facility] 18:15:00-00:00 DATE: 11/24/2017 at 1757 hours Ce [...] XR LEFT HIP 2 VIEW Trish buckley [facility] 18:15:00-00:00 DATE: 11/24/2017 at 1757 hours Ce [...] 2017-11-24 [facility] 18:15:00-00:00 DATE: 11/24/2017 at 1757 hours Ce [...] d 2017-11-24 EXAM: XR PELVIS 1 VIEW [facility] 17:30:00-00:00 DATE: 11/24/2017 at 1740 hours Ce nter INDICATION: hip dislocation COMPARISON: Hip radiographs 11/24/2017 at 1552 ho urs TECHNIQUE: Frontal pelvis FINDINGS: Interim reduction of the left hip dislocation, left femoral prosthesis overlies the left acetabular cup. No additional significant interval change from the prior study. IMPRESSION: Improved reduction of the left hip j oint dislocation 2017-11-24 EXAM: XR PELVIS 1 VIEW [facility] 17:30:00-00:00 DATE: 11/24/2017 at 1740 hours Ce nter INDICATION: hip dislocation COMPARISON: Hip radiographs 11/24/2017 at 1552 ho urs TECHNIQUE: Frontal pelvis FINDINGS: Interim reduction of the left hip dislocation, left femoral prosthesis overlies the left acetabular cup. No additional significant interval change from the prior study. IMPRESSION: Improved reduction of the left hip j oint dislocation 2017-11-24 EXAM: XR PELVIS 1 VIEW [facility] 17:30:00-00:00 DATE: 11/24/2017 at 1740 hours Ce nter INDICATION: hip dislocation COMPARISON: Hip radiographs 11/24/2017 at 1552 ho urs TECHNIQUE: Frontal pelvis FINDINGS: Interim reduction of the left hip dislocation, left femoral prosthesis overlies the left acetabular cup. No additional significant interval change from the prior study. IMPRESSION: Improved reduction of the left hip j oint dislocation 2017-11-24 EXAM: XR PELVIS 1 VIEW [facility] 17:30:00-00:00 DATE: 11/24/2017 at 1740 hours Ce nter INDICATION: hip dislocation COMPARISON: Hip radiographs 11/24/2017 at 1552 ho urs TECHNIQUE: Frontal pelvis FINDINGS: Interim reduction of the left hip dislocation, left femoral prosthesis overlies the left acetabular cup. No additional significant interval change from the prior study. IMPRESSION: Improved reduction of the left hip j oint dislocation 2017-11-24 EXAM: XR PELVIS 1 VIEW [facility] 17:30:00-00:00 DATE: 11/24/2017 at 1740 hours Ce nter INDICATION: hip dislocation COMPARISON: Hip radiographs 11/24/2017 at 1552 ho urs TECHNIQUE: Frontal pelvis FINDINGS: Interim reduction of the left hip dislocation, left femoral prosthesis overlies the left acetabular cup. No additional significant interval change from the prior study. IMPRESSION: Improved reduction of the left hip j oint dislocation 2017-11-24 EXAM: XR PELVIS 1 VIEW [facility] 17:30:00-00:00 DATE: 11/24/2017 at 1740 hours Ce nter INDICATION: hip dislocation COMPARISON: Hip radiographs 11/24/2017 at 1552 ho urs TECHNIQUE: Frontal pelvis FINDINGS: Interim reduction of the left hip dislocation, left femoral prosthesis overlies the left acetabular cup. No additional significant interval change from the prior study. IMPRESSION: Improved reduction of the left hip joint dislocation 2017-11-24 EXAM: XR PELVIS 1 VIEW [facility] 17:30:00-00:00 DATE: 11/24/2017 at 1740 hours Ce nter INDICATION: hip dislocation COMPARISON: Hip radiographs 11/24/2017 at 1552 ho urs TECHNIQUE: Frontal pelvis FINDINGS: Interim reduction of the left hip dislocation, left femoral prosthesis overlies the left acetabular cup. No additional significant interval change from the prior study. IMPRESSION: Improved reduction of the left hip j oint dislocation 2017-11-24 EXAM: XR PELVIS 1 VIEW [facility] 17:30:00-00:00 DATE: 11/24/2017 at 1740 hours Ce nter INDICATION: hip dislocation COMPARISON: Hip radiographs 11/24/2017 at 1552 ho urs TECHNIQUE: Frontal pelvis FINDINGS: Interim reduction of the left hip dislocation, left femoral prosthesis overlies the left acetabular cup. No additional significant interval change from the prior study. IMPRESSION: Improved reduction of the left hip j oint dislocation 2017-11-24 EXAM: XR PELVIS 1 VIEW [facility] 17:30:00-00:00 DATE: 11/24/2017 at 1740 hours Ce [...] 2017-11-24 EXAM: XR LEFT HIP 3 VIEW [facility] 15:52:00-00:00 DATE: 11/24/2017 at 1552 hours Ce [...] 2017-11-24 EXAM: XR LEFT HIP 3 VIEW [facility] 15:52:00-00:00 DATE: 11/24/2017 at 1552 hours Ce [...] XR LEFT HIP 3 VIEW Trish buckley [facility] 15:52:00-00:00 DATE: 11/24/2017 at 1552 hours Ce [...] 2017-11-24 EXAM: [facility] 15:52:00-00:00 DATE: 11/24/2017 at 1552 hours Ce [...] 2017-11-24 EXAM: [facility] 15:52:00-00:00 DATE: 11/24/2017 at 1552 hours Ce [...] XR LEFT HIP 3 VIEW Trish buckley [facility] 15:52:00-00:00 DATE: 11/24/2017 at 1552 hours Ce [...] XR LEFT HIP 3 VIEW Trish buckley [facility] 15:52:00-00:00 DATE: 11/24/2017 at 1552 hours Ce [...] XR LEFT HIP 3 VIEW Trish buckley [facility] 15:52:00-00:00 DATE: 11/24/2017 at 1552 hours Ce [...] XR LEFT HIP 3 VIEW Trish buckley [facility] 15:52:00-00:00 DATE: 11/24/2017 at 1552 hours Ce [...] EXAM: FLUOROSCOPY-GUIDED LUMBAR PUNCTURE FOR CT MYELOGRAM [facility] 14:00:47-00:00 EXAM: CT MYELOGRAM [facility] Center [...] o f L4-L5. 2. Foraminal stenosis at L4 -L5 on the left with impingement upon the [...] EXAM: FLUOROSCOPY-GUIDED LUMBAR PUNCTURE FOR CT MYELOGRAM [facility] 14:00:47-00:00 EXAM: CT MYELOGRAM LUMBAR SPINE Center [...] EXAM: FLUOROSCOPY-GUIDED LUMBAR PUNCTURE FOR CT MYELOGRAM [facility] 14:00:47-00:00 EXAM: CT MYELOGRAM LUMBAR SPINE Center [...] EXAM: FLUOROSCOPY-GUIDED LUMBAR PUNCTURE FOR CT MYELOGRAM [facility] 14:00:47-00:00 EXAM: CT MYELOGRAM [facility] [...] EXAM: FLUOROSCOPY-GUIDED LUMBAR PUNCTURE FOR CT MYELOGRAM [facility] 14:00:47-00:00 EXAM: CT MYELOGRAM [facility] [...] EXAM: FLUOROSCOPY-GUIDED LUMBAR PUNCTURE FOR CT MYELOGRAM [facility] 14:00:47-00:00 EXAM: CT MYELOGRAM [facility] [...] EXAM: FLUOROSCOPY-GUIDED LUMBAR PUNCTURE FOR CT MYELOGRAM [facility] 14:00:47-00:00 EXAM: CT MYELOGRAM [facility] [...] EXAM: FLUOROSCOPY-GUIDED LUMBAR PUNCTURE FOR CT MYELOGRAM [facility] 14:00:47-00:00 EXAM: CT MYELOGRAM [facility] [...] EXAM: FLUOROSCOPY-GUIDED LUMBAR PUNCTURE FOR CT MYELOGRAM [facility] 14:00:47-00:00 EXAM: CT MYELOGRAM [facility] [...] EXAM: FLUOROSCOPY-GUIDED LUMBAR PUNCTURE FOR CT MYELOGRAM [facility] 12:31:00-00:00 EXAM: CT MYELOGRAM L[facility]BAR SPINE Center [...] EXAM: FLUOROSCOPY-GUIDED LUMBAR PUNCTURE FOR CT MYELOGRAM [facility] 12:31:00-00:00 EXAM: CT MYELOGRAM [facility] [...] EXAM: FLUOROSCOPY-GUIDED LUMBAR PUNCTURE FOR CT MYELOGRAM [facility] 12:31:00-00:00 EXAM: CT MYELOGRAM [facility] [...] EXAM: FLUOROSCOPY-GUIDED LUMBAR PUNCTURE FOR CT MYELOGRAM [facility] 12:31:00-00:00 EXAM: CT MYELOGRAM L[facility] SPINE Center [...] EXAM: FLUOROSCOPY-GUIDED LUMBAR PUNCTURE FOR CT MYELOGRAM [facility] 12:31:00-00:00 EXAM: CT MYELOGRAM [facility] SPINE [facility] [...] EXAM: FLUOROSCOPY-GUIDED LUMBAR PUNCTURE FOR CT MYELOGRAM [facility] 12:31:00-00:00 EXAM: CT MYELOGRAM [facility] SPINE [facility] [...] EXAM: FLUOROSCOPY-GUIDED LUMBAR PUNCTURE FOR CT MYELOGRAM [facility] 12:31:00-00:00 EXAM: CT MYELOGRAM L[facility]BAR SPINE Center [...] EXAM: FLUOROSCOPY-GUIDED LUMBAR PUNCTURE FOR CT MYELOGRAM [facility] 12:31:00-00:00 EXAM: CT MYELOGRAM LUMBAR SPINE Center [...] EXAM: FLUOROSCOPY-GUIDED LUMBAR PUNCTURE FOR CT MYELOGRAM [facility] 12:31:00-00:00 EXAM: CT MYELOGRAM LUMBAR SPINE Center [...] L4 and L5. 2017-10-14 Patient Name: TRISH SYKES [facility] :44:05-00:00 : [birth year]; Age: 67 years y/o Female MR: [id number] Study: Hip 2/3 views uni DX 10/14/17 [...] SL: WANDA 2017-10-14 Patient Name: TRISH VERGARA [facility] :44:05-00:00 : [birth year]; Age: 67 years y/o Female MR: [id number] Study: Hip 2/3 views uni DX 10/14/17 [...] SL: WANDA 2017-10-14 Patient Name: TRISH VERGARA [facility] :44:05-00:00 : [birth year]; Age: 67 years y/o Female MR: [id number] Study: Hip 2/3 views uni DX 10/14/17 [...] SL: WANDA 2017-10-14 Patient Name: TRISH VERGARA [facility] 01:44:05-00:00 : [birth year]; Age: 67 years y/o Female MR: [id number] Study: Hip 2/3 views uni DX 10/14/17 [...] SL: WANDA 2017-10-14 Patient Name: TRISH VERGARA [facility] :44:05-00:00 : [birth year]; Age: 67 years y/o Female MR: [id number] Study: Hip 2/3 views uni DX 10/14/17 [...] SL: WANDA 2017-10-14 Patient Name: TRISH VERGARA [facility] :44:05-00:00 : [birth year]; Age: 67 years y/o Female MR: [id number] Study: Hip 2/3 views uni DX 10/14/17 [...] SL: WANDA 2017-10-14 Patient Name: TRISH VERGARA [facility] 01:44:05-00:00 : [birth year]; Age: 67 years y/o Female MR: [id number] Study: Hip 2/3 views uni DX 10/14/17 [...] SL: WANDA 2017-10-14 Patient Name: TRISH VERGARA [facility] 01:44:05-00:00 : [birth year]; Age: 67 years y/o Female MR: [id number] Study: Hip 2/3 views uni DX 10/14/17 [...] SL: WANDA 2017-10-14 Patient Name: TRISH VERGARA [facility] 01:44:05-00:00 : [birth year]; Age: 67 years y/o Female MR: [id number] Study: Hip 2/3 views uni DX 10/14/17 [...] SL: WANDA 2017-10-13 Patient Name: TRISH VERGARA [facility] 21:47:16-00:00 : 1950; Age: 67 years Female MR: [id number] Study: Knee series 3 views DX 10/13/2017 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 CLINICAL INDICATION: Pain Post Trauma - Trauma [...] JORGE 2017-10-13 Study: Lumbar spine, 3 views [facility] 21:47:16-00:00 Clinical Indication: Back pain Post Trauma [...] SL: THEODORA 2017-10-13 Patient Name: TRISH VERGARA [facility] 21:47:16-00:00 : 1950; Age: 67 years Female MR: [id number] Study: Pelvis AP DX, Hip 2/3 views uni DX 2016 9:43 PM [employer] INSPECTOR CLINICAL INDICATION: - patient fall COMPARISON: None [...] SL: KENNY 2017-10-13 Patient Name: TRISH VERGARA [facility] 21:47:16-00:00 : 1950; Age: 67 years Female MR: [id number] Study: Pelvis AP DX, Hip 2/3 views uni DX 2016 9:43 PM [employer]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 IMPRESSION: Dislocated left hip prosthesis. 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 Moderate to severe narrowing with marginal osteophytes involving the lateral compartment and to a lesser extent involving the medial and patellofemoral compartments. Small joint effusion. IMPRESSION: No acute bony abnormalities. Tricompartmental degenerative changes of the lef t knee. 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 IMPRESSION: Dislocated left hip prosthesis. 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 CLINICAL INDICATION: Pain Post Trauma - Trauma [...] JORGE 2017-10-13 Study: Lumbar spine, 3 views [facility] 21:47:16-00:00 Clinical Indication: Back pain Post Trauma [...] SL: THEODORA 2017-10-13 Patient Name: TRISH VERGARA [place] [address]:47:16-00:00 : 1950; Age: 67 years Female MR: [id number] Study: Pelvis AP DX, Hip 2/3 views uni DX 2016 9:43 PM [employer]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 IMPRESSION: Dislocated left hip prosthesis. 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 IMPRESSION: Dislocated left hip prosthesis. 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 Moderate to severe narrowing with marginal osteophytes involving the lateral compartment and to a lesser extent involving the medial and patellofemoral compartments. Small joint effusion. IMPRESSION: No acute bony abnormalities. Tricompartmental degenerative changes of the lef t knee. 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 IMPRESSION: Dislocated left hip prosthesis. 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 CLINICAL INDICATION: Pain Post Trauma - Trauma [...] JORGE 2017-10-13 Study: Lumbar spine, 3 views [facility] 21:47:16-00:00 Clinical Indication: Back pain Post Trauma [...] SL: THEODORA 2017-10-13 Patient Name: TRISH VERGARA [facility] 21:47:16-00:00 : 1950; Age: 67 years Female MR: [id number] Study: Pelvis AP DX, Hip 2/3 views uni DX 2016 9:43 PM [employer]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 CLINICAL INDICATION: - patient fall COMPARISON: None [...] SL: JORGE 2017-10-13 Patient Name: TRISH VERGARA [facility] 21:47:16-00:00 : 1950; Age: 67 years Female MR: [id number] Study: Pelvis AP DX, Hip 2/3 views uni DX 2016 9:43 PM [employer]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 CLINICAL INDICATION: - patient fall COMPARISON: None [...] SL: JORGE 2017-10-13 Patient Name: TRISH VERGARA [facility] 21:47:16-00:00 : 1950; Age: 67 years Female MR: [id number] Study: Knee series 3 views DX 10/13/2017 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 IMPRESSION: Dislocated left hip prosthesis. 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 Moderate to severe narrowing with marginal osteophytes involving the lateral compartment and to a lesser extent involving the medial and patellofemoral compartments. Small joint effusion. IMPRESSION: No acute bony abnormalities. Tricompartmental degenerative changes of the lef t knee. 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 CLINICAL INDICATION: - patient fall COMPARISON: None [...] SL: JORGE 2017-10-13 Patient Name: TRISH VERGARA [facility] 21:47:16-00:00 : 1950; Age: 67 years Female MR: [id number] Study: Pelvis AP DX, Hip 2/3 views uni DX 2016 9:43 PM [employer]INE [employer] INSPECTOR CLINICAL INDICATION: - patient fall COMPARISON: None [...] : JORGE 2017-10-13 Patient Name: TRISH VERGARA [facility] 21:47:16-00:00 : 1950; Age: 67 years Female MR: [id number] Study: Knee series 3 views DX 10/13/2017 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 CLINICAL INDICATION: Pain Post Trauma - Trauma [...] JORGE 2017-10-13 Study: Lumbar spine, 3 views [facility] 21:47:16-00:00 Clinical Indication: Back pain Post Trauma [...] SL: THEODORA 2017-10-13 Patient Name: TRISH VERGARA [facility] 21:47:16-00:00 : 1950; Age: 67 years Female MR: [id number] Study: Pelvis AP DX, Hip 2/3 views uni DX 2016 9:43 PM [employer]INE [employer] INSPECTOR CLINICAL INDICATION: - patient fall COMPARISON: None [...] SL: JORGE 2017-10-13 Patient Name: TRISH VERGARA [facility] 21:47:16-00:00 : 1950; Age: 67 years Female MR: [id number] Study: Pelvis AP DX, Hip 2/3 views uni DX 2016 9:43 PM [employer]INE [employer] INSPECTOR CLINICAL INDICATION: - patient fall COMPARISON: None [...] JORGE 2017-09-07 EXAM: Left Hip 2/3 views [facility] 03:14:29-00:00 DATE: 09/07/2017 3:12 AM [employer]INE [employer] INSPECTOR INDICATION: - post reduction left hip pain. COMPARISON: 09/06/2017. IMPRESSION: Gross anatomic l eft femoral head prosthesis with respect to the acetabular cup post reduction. No definite gross acute fracture detected. 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 COMPARISON: 09/06/2017. IMPRESSION: Gross anatomic l eft femoral head prosthesis with respect to the acetabular cup post reduction. No definite gross acute fracture detected. 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 COMPARISON: 09/06/2017. IMPRESSION: Gross anatomic l eft femoral head prosthesis with respect to the acetabular cup post reduction. No definite gross acute fracture detected. 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 COMPARISON: 09/06/2017. IMPRESSION: Gross anatomic l eft femoral head prosthesis with respect to the acetabular cup post reduction. No definite gross acute fracture detected. 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 COMPARISON: 09/06/2017. IMPRESSION: Gross anatomic l eft femoral head prosthesis with respect to the acetabular cup post reduction. No definite gross acute fracture detected. 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 COMPARISON: 09/06/2017. IMPRESSION: Gross anatomic l eft femoral head prosthesis with respect to the acetabular cup post reduction. No definite gross acute fracture detected. 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 COMPARISON: 09/06/2017. IMPRESSION: Gross anatomic l eft femoral head prosthesis with respect to the acetabular cup post reduction. No definite gross acute fracture detected. 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 COMPARISON: 09/06/2017. IMPRESSION: Gross anatomic l eft femoral head prosthesis with respect to the acetabular cup post reduction. No definite gross acute fracture detected. 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 COMPARISON: 09/06/2017. IMPRESSION: Gross anatomic l eft femoral head prosthesis with respect to the acetabular cup post reduction. No definite gross acute fracture detected. [facility] Left hip 2 views: [facility] 20:56:54-00:00 HISTORY: Pain after fall. FINDINGS: The left hip prost hesis is dislocated. There is no loosening or fracture around the components. SL: [facility] 2017-09-06 Left hip 2 views: [facility] 20:56:54-00:00 HISTORY: Pain after fall. FINDINGS: The left hip prost hesis is dislocated. There is no loosening or fracture around the components. : [facility] 2017-09-06 Left hip 2 views: [facility] 20:56:54-00:00 HISTORY: Pain after fall. FINDINGS: The left hip prost hesis is dislocated. There is no loosening or fracture around the components. SL: [facility] 2017-09-06 Left hip 2 views: [facility] 20:56:54-00:00 HISTORY: Pain after fall. FINDINGS: The left hip prost hesis is dislocated. There is no loosening or fracture around the components. SL: [facility] 2017-09-06 Left hip 2 views: [facility] 20:56:54-00:00 HISTORY: Pain after fall. FINDINGS: The left hip prost hesis is dislocated. There is no loosening or fracture around the components. SL: [facility] 2017-09-06 Left hip 2 views: [facility] 20:56:54-00:00 HISTORY: Pain after fall. FINDINGS: The left hip prost hesis is dislocated. There is no loosening or fracture around the components. SL: [facility] 2017-09-06 Left hip 2 views: [facility] 20:56:54-00:00 HISTORY: Pain after fall. FINDINGS: The left hip prost hesis is dislocated. There is no loosening or fracture around the components. SL: [facility] 2017-09-06 Left hip 2 views: [facility] 20:56:54-00:00 HISTORY: Pain after fall. FINDINGS: The left hip prost hesis is dislocated. There is no loosening or fracture around the components. SL: [facility] 2017-09-06 Left hip 2 views: [facility] 20:56:54-00:00 HISTORY: Pain after fall. FINDINGS: The left hip prost hesis is dislocated. There is no loosening or fracture around the components. : [facility] 2017-01-29 EXAM: XR LUMBAR SPINE 3 VIEWS [facility] 05:00:00-00:00 DATE: 01/29/2017 5:00 AM CDT Cent [...] 2017-01-29 EXAM: XR LUMBAR SPINE 3 VIEWS [facility] 05:00:00-00:00 DATE: 01/29/2017 5:00 AM CDT InterviewBest er INDICATION: Pain with radicu lopathy - [...] 2017-01-29 EXAM: XR LUMBAR SPINE 3 VIEWS [facility] 05:00:00-00:00 DATE: 01/29/2017 5:00 AM ShowEvidenceT InterviewBest er INDICATION: Pain with radicu lopathy - [...] 2017-01-29 EXAM: XR LUMBAR SPINE 3 VIEWS [facility] 05:00:00-00:00 DATE: 01/29/2017 5:00 AM CDT InterviewBest er INDICATION: Pain with radicu lopathy - [...] 2017-01-29 EXAM: XR LUMBAR SPINE 3 VIEWS [facility] 05:00:00-00:00 DATE: 01/29/2017 5:00 AM CDT Cent [...] 2017-01-29 EXAM: XR LUMBAR SPINE 3 VIEWS [facility] 05:00:00-00:00 DATE: 01/29/2017 5:00 AM CDT Cent [...] 2017-01-29 EXAM: XR LUMBAR SPINE 3 VIEWS [facility] 05:00:00-00:00 DATE: 01/29/2017 5:00 AM [facility] er INDICATION: Pain with radicu lopathy - [...] 2017-01-29 EXAM: XR LUMBAR SPINE 3 VIEWS [facility] 05:00:00-00:00 DATE: 01/29/2017 5:00 AM [facility] er INDICATION: Pain with radicu lopathy - [...] 2017-01-29 EXAM: XR LUMBAR SPINE 3 VIEWS [facility] 05:00:00-00:00 DATE: 01/29/2017 5:00 AM CDT Cent [...] mild greater trochanteric bursitis. SL: WR4-M 2016-10-10 MRI LEFT HIP WITHOUT CONTRAST [facility] [place] 18:35:16-00:00 HISTORY: Left hip pain, acut e [...] arthroplasty with mild greater trochanteric bursitis. SL: [facility]- 2016-10-10 MRI LEFT HIP WITHOUT CONTRAST [facility] [place] 18:35:16-00:00 HISTORY: Left hip pain, acut e [...] arthroplasty with mild greater trochanteric bursitis. SL: [facility] 2016-10-10 MRI LEFT HIP WITHOUT CONTRAST [place] 18:35:16-00:00 HISTORY: Left hip pain, acut e [...] mild greater trochanteric bursitis. SL: WR4-M 2016-10-10 MRI LEFT HIP WITHOUT CONTRAST [facility] 18:35:16-00:00 HISTORY: Left hip pain, acut [...] mild greater trochanteric bursitis. SL: WR4-M 2016-10-10 MRI LEFT HIP WITHOUT CONTRAST [facility] [place] 18:35:16-00:00 HISTORY: Left hip pain, acut e [...] GUILLERMINA 2016-10-10 MRI LEFT HIP WITHOUT CONTRAST ON[facility] [place] 18:35:16-00:00 HISTORY: Left hip pain, acut e [...] GUILLERMINA 2016-10-10 [facility] [place] 18:35:16-00:00 HISTORY: Left hip pain, acut e [...] mild greater trochanteric bursitis. SL: WR4-M 2016-10-10 [facility] [place] 18:35:16-00:00 HISTORY: Left hip pain, acut e [...] 2016-10-10 PROCEDURE: LUMBAR SPINE MAGNETIC RESONANCE IMAGI [facility] SUSI [place] 17:51:46-00:00 CLINICAL INDICATION: M54.5. Low back pain. [...] 1 anterolisthesis of L4 on L5. 2. Ashby facet arthropathy. 3. Lumbar spondylosis with m [...] may be obtained with an MRCP. SL: 2016-10-10 PROCEDURE: LUMBAR SPINE MAGNETIC RESONANCE IMAGI ARI [facility] [place] 17:51:46-00:00 CLINICAL INDICATION: M54.5. Low back [...] 1 anterolisthesis of L4 on L5. 2. Ashby facet arthropathy. 3. Lumbar spondylosis with m [...] may be obtained with an MRCP. SL: 2016-10-10 PROCEDURE: LUMBAR SPINE MAGNETIC RESONANCE IMAGI ARI [place] 17:51:46-00:00 CLINICAL INDICATION: M54.5. Low back pain. [...] 1 anterolisthesis of L4 on L5. 2. [place]by facet arthropathy. 3. Lumbar spondylosis with m [...] may be obtained with an MRCP. SL: 2016-10-10 PROCEDURE: LUMBAR SPINE MAGNETIC RESONANCE IMAGI [...] 1 anterolisthesis of L4 on L5. 2. Ashby facet arthropathy. 3. Lumbar spondylosis with m [...] 2016-10-10 PROCEDURE: LUMBAR SPINE MAGNETIC RESONANCE IMAGI [facility] S[facility]I [place] 17:51:46-00:00 CLINICAL INDICATION: M54.5. Low back pain. [...] 1 anterolisthesis of L4 on L5. 2. Ashby facet arthropathy. 3. Lumbar spondylosis with m [...] may be obtained with an MRCP. SL: 2016-10-10 PROCEDURE: LUMBAR SPINE MAGNETIC RESONANCE IMAGI [facility] SUSI [place] 17:51:46-00:00 CLINICAL INDICATION: M54.5. Low back pain. [...] 1 anterolisthesis of L4 on L5. 2. Ashby facet arthropathy. 3. Lumbar spondylosis with m [...] LUMBAR SPINE MAGNETIC RESONANCE IMAGI ARI GOLDMAN [place] 17:51:46-00:00 CLINICAL INDICATION: M54.5. Low back pain. [...] 1 anterolisthesis of L4 on L5. 2. Ashby facet arthropathy. 3. Lumbar spondylosis with m [...] may be obtained with an MRCP. SL: 2016-10-10 PROCEDURE: LUMBAR SPINE MAGNETIC RESONANCE IMAGI ARI GOLDMAN [place] 17:51:46-00:00 CLINICAL INDICATION: M54.5. Low back pain. [...] 1 anterolisthesis of L4 on L5. 2. Ashby facet arthropathy. 3. Lumbar spondylosis with m [...] 2016-10-10 PROCEDURE: LUMBAR SPINE MAGNETIC RESONANCE IMAGI NG MH SUSI [place] 17:51:46-00:00 CLINICAL INDICATION: M54.5. Low back pain. [...]
[2023-06-25] MEDS ORDERED: IBUPROFEN 400 MG TAB ONE (20:43)
[2023-06-25] MEDS ORDERED: IBUPROFEN 200 MG TAB PO ONE (20:43)
--- NOTE | 2023-06-25 20:55 | RAD REPORT ---
EXAM DESCRIPTION: RAD - Chest Single View - 06/25/2023 8:36 pm CLINICAL HISTORY: FEVER Chest pain. COMPARISON: Chest Single View dated 06/20/2023; Chest Pa And Lat (2 Views) dated 07/09/2019 FINDINGS: Portable technique limits examination quality. The lungs are grossly clear. The heart is normal in size. No displaced fractures. IMPRESSION: No acute intrathoracic process suspected.
[2023-06-25 21:05] LABS: Hematocrit 34.9 % (36.0-45.0); Lymphocytes % 5.9 % (15.3-44.8); MCV 91.8 fL (80-100); Platelets 359 thou/uL (152-406)
--- NOTE | 2023-06-25 21:07 | EDPHYS ---
Physician Documentation [facility] Name: Trish Vergara Age: 73 yrs Sex: Female : 1950 Arrival Date: 06/25/2023 Time: 19:44 Bed 4 Private MD: ED Physician Bud Mojica HPI: 06/25 20:10 This 73 yrs old Female presents to ER via Wheelchair with complaints of needs admission.rn 20:10 Family member reports discharged from hospital today, was supposed to be discharged to [facility], patient called friend to pick her up instead, when family tried to take her to [facility], they denied her admission, stated "she didn't have orders". Patient without acute complaints. Otherwise feels better since hospitalization.. Onset: The symptoms/episode began/occurred at an unknown time. Severity of symptoms: At their worst the symptoms were very mild in the emergency department the symptoms are unchanged. The patient has not experienced similar symptoms in the past. The patient has been recently been admitted at [facility]. Historical: - Allergies: 20:08 Phenergan; nj1 20:08 Talwin; nj1 20:08 Benadryl; nj1 - PMHx: 20:08 8 hip replacements; Chronic pain; plate in back; nj1 - Immunization history:: Client reports receiving the 2nd dose of the Covid vaccine. - Social history:: Smoking status: Patient denies any tobacco usage or history of. - Family history:: not pertinent. - Hospitalizations: : The patient was recently seen at [facility]. - History obtained from: relative. ROS: 20:10 Constitutional: Negative for fever, chills, and weight loss, Eyes: Negative for injury, rn pain, redness, and discharge, Neck: Negative for injury, pain, and swelling, Cardiovascular: Negative for chest pain, palpitations, and edema, Respiratory: Negative for shortness of breath, cough, wheezing, and pleuritic chest pain, Abdomen/GI: Negative for abdominal pain, nausea, vomiting, diarrhea, and constipation, Back: Negative for injury MS/Extremity: Negative for injury and deformity, Skin: Negative for injury, rash, and discoloration, Neuro: Negative for headache, numbness, tingling, and seizure. Exam: 20:10 Constitutional: This is a well developed, well nourished patient who is awake, alert, rn and in no acute distress. Head/Face: Normocephalic, atraumatic. Neck: Trachea midline, no masses palpated, and no cervical lymphadenopathy. Supple, full range of motion without nuchal rigidity, or vertebral point tenderness. No Meningismus. Cardiovascular: Regular rate and rhythm. No pulse deficits. Respiratory: No increased work of breathing, no retractions or nasal flaring. Abdomen/GI: Soft, non-tender Skin: Warm, dry MS/ Extremity: Pulses equal, no cyanosis. + right knee swelling without erythema or warmth (patients states has been like that for one week following fall, and has actually improved) Neuro: Awake and alert, GCS 15 Vital Signs: 20:04 BP 153 / 82; Pulse 92; Resp 18; Temp 101.1(O); Pulse Ox 98% on R/A; Weight 69 kg; nj1 Height 5 ft. 10 in. ; 20:25 Temp 100.7(O); vc1 21:00 BP 142 / 87; Pulse 87; Resp 18; Pulse Ox 96% ; vc1 22:16 BP 140 / 87; Pulse 79; Resp 18; Pulse Ox 98% ; vc1 22:21 Temp 99.3(O); vc1 23:00 BP 120 / 70; Pulse 77; Resp 17; Pulse Ox 98% ; vc1 06/26 00:05 BP 106 / 66; Pulse 73; Resp 17; Pulse Ox 97% ; vc1 06/25 20:04 Body Mass Index 21.83 (69.00 kg, 177.8 cm) nj1 Eliane Coma Score: 00:24 Eye Response: spontaneous(4). Motor Response: obeys commands(6). Verbal Response: rv oriented(5). Total: 15. MDM: 06/25 19:58 Patient medically screened. rn 21:05 Differential Diagnosis flu, COVID, DVT, UTI, weakness, fever. Data reviewed: vital rn signs, nurses notes, and as a result, I will admit patient. Consideration of Admission/Observation Patient was admitted/placed on observation. Escalation of care including admission/observation considered. Counseling: I had a detailed discussion with the patient and/or guardian regarding the historical points, exam findings, and any diagnostic results supporting the discharge/admit diagnosis, the need for further work-up and treatment in the hospital. ED course: Spoke with housekeeper caregiver, plan was to re-admit her given lives alone, son cannot care for her, and housekeeper caregiver contacted by family prior to coming back in and that is the family member's understanding, with re-initiation of rehab in AM. . 21:08 Management of patient was discussed with the following: Hospitalist: . Independent rn interpretation of the following test(s) in the Emergency Department X-Ray: My interpretation is CXR images negative for pneumonia per my interpretation. Historians other than the Patient: Daughter/Son: gives majority of HPI. Care significantly affected by the following chronic conditions: chronic pain. 06/25 20:07 Order name: CBC with Diff; Complete Time: 21:07 rn 06/25 20:07 Order name: Basic Metabolic Panel; Complete Time: 21:40 rn 06/25 20:07 Order name: SARS RAPID; Complete Time: 21:24 rn 06/25 20:07 Order name: Flu; Complete Time: 21:40 rn 06/25 22:54 Order name: Basic Metabolic Panel EDAK 06/25 22:54 Order name: Basic Metabolic Panel EDAK 06/25 22:54 Order name: CBC with Automated Diff EDAK 06/25 22:54 Order name: CBC with Automated Diff EDAK 06/25 22:54 Order name: Magnesium EDAK 06/25 22:54 Order name: Magnesium EDAK 06/25 20:07 Order name: XRAY Chest (1 view); Complete Time: 21:07 rn 06/25 20:07 Order name: Extrem Venous W Compression Yonny US; Complete Time: 21:24 rn 06/25 22:54 Order name: Physical Therapy Consult EDAK 06/25 22:54 Order name: Heart Healthy EDAK 06/25 20:07 Order name: IV Start; Complete Time: 20:31 rn Administered Medications: 20:36 Drug: Ibuprofen PO 600 mg Route: PO; rv 22:22 Follow up: Response: No adverse reaction; Marked relief of symptoms; Temperature is vc1 decreased 22:08 Drug: Mobile PO 10 mg-325 mg 1 tabs Route: PO; rv 06/26 00:22 Follow up: Response: No adverse reaction rv Disposition Summary: 06/25/23 21:07 Hospitalization Ordered Hospitalization Status: Observation rn Location: Telemetry/MedSurg (observation) rn Condition: Stable rn Problem: an ongoing problem rn Symptoms: are unchanged rn Bed/Room Type: Standard rn Provider: Epifanio Garibay(06/25/23 22:42) rn Room Assignment: 219(06/26/23 00:13) eb1 Diagnosis - Weakness rn - Fever, unspecified rn Forms: - Medication Reconciliation Form rn - SBAR form rn - Leadership Thank You Letter rn Signatures: Dispatcher [employer] [facility] Bud Mojica MD MD rn Basinger, Emily RN RN eb1 Lio Nguyễn RN RN Verónica aSntoro RN RN nj1 Delmi Moilna RN vc1 Corrections: (The following items were deleted from the chart) 06/25 20:30 20:10 Constitutional: This is a well developed, well nourished patient who is awake, rn alert, and in no acute distress. Head/Face: Normocephalic, atraumatic. Neck: Trachea midline, no masses palpated, and no cervical lymphadenopathy. Supple, full range of motion without nuchal rigidity, or vertebral point tenderness. No Meningismus. Cardiovascular: Regular rate and rhythm. No pulse deficits. Respiratory: No increased work of breathing, no retractions or nasal flaring. Abdomen/GI: Soft, non-tender Skin: Warm, dry MS/ Extremity: Pulses equal, no cyanosis. Neuro: Awake and alert, GCS 15 rn 22:42 21:07 Kit Delgado rn rn 22:55 20:08 Urinalysis+U.LAB.BRZ ordered. [facility] 06/26 00:13 06/25 21:07 rn eb1
--- NOTE | 2023-06-25 21:07 | ER ---
Nurse's Notes [facility] Name: Trish Vergara Age: 73 yrs Sex: Female : 1950 Arrival Date: 06/25/2023 Time: 19:44 Bed 4 Private MD: Diagnosis: Weakness;Fever, unspecified Presentation: 06/25 20:04 Chief complaint: Patient's son or daughter states: Discharged today from upstairs. nj1 Original plan was to go to [place] for rehab but instead patient was discharge home. Son, who states is POA, states she is unable to stand/walk. Coronavirus screen: Vaccine status: Patient reports receiving the 2nd dose of the covid vaccine. Ebola Screen: Patient denies travel to an Ebola-affected area in the 21 days before illness onset. Initial Sepsis Screen: Does the patient meet any 2 criteria? Temp <36.0*C (96.8*F)) or > 38.3*C (100.9*F). HR > 90 bpm. Does the patient have a suspected source of infection? No. Patient's initial sepsis screen is negative. Risk Assessment: Do you want to hurt yourself or someone else? Patient reports no desire to harm self or others. Onset of symptoms was June 25, 2023. 20:04 Method Of Arrival: Wheelchair nj1 20:04 Acuity: MERCEDES 3 nj1 Triage Assessment: 06/26 00:24 General: Appears uncomfortable, Behavior is calm, cooperative. Pain: Complains of pain rv in right leg. Neuro: Level of Consciousness is awake, alert, obeys commands, Oriented to person, place, time, situation. Cardiovascular: Capillary refill < 3 seconds. Respiratory: Airway is patent Respiratory effort is even, unlabored. Musculoskeletal: Swelling present in right knee. Historical: - Allergies: 06/25 20:08 Phenergan; nj1 20:08 Talwin; nj1 20:08 Benadryl; nj1 - PMHx: 20:08 8 hip replacements; Chronic pain; plate in back; nj1 - Immunization history:: Client reports receiving the 2nd dose of the Covid vaccine. - Social history:: Smoking status: Patient denies any tobacco usage or history of. - Family history:: not pertinent. - Hospitalizations: : The patient was recently seen at [facility]. - History obtained from: relative. Screenin:03 [facility] ED Fall Risk Assessment (Adult) History of falling in the last 3 months, vc1 including since admission No falls in past 3 months (0 pts) Confusion or Disorientation No (0 pts) Intoxicated or Sedated No (0 pts) Impaired Gait No (0 pts) Mobility Assist Device Used No (0 pt) Altered Elimination No (0 pt) Score/Fall Risk Level 0 - 2 = Low Risk Oriented to surroundings, Maintained a safe environment, Educated pt \T\ family on fall prevention, incl call for assistance when getting out of bed. Abuse screen: Denies threats or abuse. Nutritional screening: No deficits noted. Tuberculosis screening: No symptoms or risk factors identified. Assessment: 22:16 Reassessment: No changes from previously documented assessment. Patient and/or family vc1 updated on plan of care and expected duration. Pain level reassessed. 06/26 00:01 Reassessment: No changes from previously documented assessment. Patient and/or family vc1 updated on plan of care and expected duration. Pain level reassessed. Patient states symptoms have improved. Vital Signs: 06/25 20:04 BP 153 / 82; Pulse 92; Resp 18; Temp 101.1(O); Pulse Ox 98% on R/A; Weight 69 kg; nj1 Height 5 ft. 10 in. ; 20:25 Temp 100.7(O); vc1 21:00 BP 142 / 87; Pulse 87; Resp 18; Pulse Ox 96% ; vc1 22:16 BP 140 / 87; Pulse 79; Resp 18; Pulse Ox 98% ; vc1 22:21 Temp 99.3(O); vc1 23:00 BP 120 / 70; Pulse 77; Resp 17; Pulse Ox 98% ; vc1 06/26 00:05 BP 106 / 66; Pulse 73; Resp 17; Pulse Ox 97% ; vc1 06/25 20:04 Body Mass Index 21.83 (69.00 kg, 177.8 cm) nj1 Eliane Coma Score: 00:24 Eye Response: spontaneous(4). Motor Response: obeys commands(6). Verbal Response: rv oriented(5). Total: 15. ED Course: 06/25 19:49 Patient arrived in ED. jj6 19:58 Bud Mojica MD is Attending Physician. rn 20:07 Triage completed. nj1 20:08 Arm band placed on. nj1 20:31 Lio Nguyễn, LAVONNE is Primary Nurse. rv 20:38 XRAY Chest (1 view) In Process Unspecified. EDMS 21:03 Patient has correct armband on for positive identification. Bed in low position. Call vc1 light in reach. Pulse ox on. NIBP on. 21:07 Kit Delgado is Hospitalizing Provider. rn 21:13 Extrem Venous W Compression Yonny US In Process Unspecified. EDMS 22:42 Epifanio Garibay MD is Hospitalizing Provider. rn 23:00 No provider procedures requiring assistance completed. Inserted saline lock: 20 gauge rv in right forearm, using aseptic technique. Blood collected. 06/26 00:25 Provided Education on: PAIN MANAGEMENT. rv 00:25 Patient admitted, IV remains in place. rv Administered Medications: 06/25 20:36 Drug: Ibuprofen PO 600 mg Route: PO; rv 22:22 Follow up: Response: No adverse reaction; Marked relief of symptoms; Temperature is vc1 decreased 22:08 Drug: [place] PO 10 mg-325 mg 1 tabs Route: PO; rv 06/26 00:22 Follow up: Response: No adverse reaction rv Medication: 06/25 21:03 VIS not applicable for this client. vc1 Outcome: 21:07 Decision to Hospitalize by Provider. rn 06/26 00:25 Admitted to Med/surg accompanied by nurse, via stretcher, room 219, with chart, Report rv called to HOLLEY BANERJEE Condition: good Instructed on the need for admit. 00:26 Patient left the ED. rv Signatures: Dispatcher [employer] EDMS Bud Mojica MD MD rn Vicente, Ronaldo, RN RN rv Elaine Zeng jj6 Delmi Molina RN RN vc1 Verónica English RN RN nj1
[2023-06-25 21:19] LABS: SARS-CoV-2 Antigen Rapid Res Negative (Negative)
--- NOTE | 2023-06-25 21:20 | RAD REPORT ---
EXAM DESCRIPTION: US - Extrem Venous W Compress Yonny - 06/25/2023 9:13 pm CLINICAL HISTORY: fever, recent CVA right leg pain Bilateral leg edema and swelling. COMPARISON: No comparisons TECHNIQUE: Real-time sonographic interrogation of the left and right lower extremity deep venous sys tems was performed. FINDINGS: Normal compressibility, flow augmentation, phasic flow and spontaneous flow is identified in both the left and right lower extremity deep venous systems. IMPRESSION: No sonographic evidence of left or right lower extremity deep venous thrombosis.
[2023-06-25] MEDS ORDERED: HYDROCODONE/APAP 10/325 TAB ONE (22:15)
[2023-06-25] MEDS ORDERED: ONDANSETRON 4 MG/2 ML VIAL IV PRN (22:52)
--- NOTE | 2023-06-25 23:20 | P.HP ---
Certification for Inpatient Patient admitted to: Observation With expected LOS: <2 Midnights Patient will require the following post-hospital care: Fdc Practitioner: I am a practitioner with admitting privileges, knowledge of patient current condition, hospital course, and medical plan of care. Services: Services provided to patient in accordance with Admission requirements found in Title 42 Section 412.3 of the Code of Federal Regulations Patient History Date of Service: 06/26/23 Reason for admission: leukocytosis History of Present Illness: 73-year-old female with a past medical history of GI bleed, constipation, recent NSTEMI, recent gastroenteritis, small acute left pontine infarct Was discharged yesterday to [facility] for rehab, patient called friend to pick her up instead, when family tried to take her to [facility], they denied her admission, stated "she didn't have orders She was followed by Dr. Zimmer during previous admission, he recommended to discharge on notified and advised to start patient on aspirin, plavix, folic acid. Per DC plan She is ambulating with a walker. She is discharged to home with home health for PT and correction. Will need social sciences lecturer to contact [facility] to transfer discharge orders for DC in the a.m.Laboratory evaluation on arrival to the ER hyponatremia 129, BUN kari vated at 28, leukocytosis WBCs 16.60, with a left shift at 81.4, chest x-ray IMPRESSION: No acute intrathoracic process suspected. Venous Doppler IMPRESSION: No sonographic evidence of left or right lower extremity deep venous thrombosis will admit for hyponatremia, leukocytosis, social sciences lecturer for discharge planning/ Allergies pentazocine [From Talwin] Allergy (Verified 06/21/23 06:35) Nausea/Vomiting promethazine [From Phenergan] Allergy (Verified 06/21/23 06:35) Nausea/Vomiting Home Medications: Acetaminophen [Tylenol] 650 mg PO Q6HR 06/20/23 Aspirin Chewable [Aspirin Chewable*] 81 mg PO DAILY 06/20/23 Atorvastatin Calcium 40 mg PO BEDTIME 06/20/23 Cyanocobalamin (Vitamin B-12) [Vitamin B-12] 1,000 mcg PO DAILY 06/20/23 Melatonin 3 mg PO BEDTIME 06/20/23 Clopidogrel Bisulfate [Plavix*] 75 mg PO DAILY 06/25/23 Docusate [Colace Cap*] 100 mg PO BID cap 06/25/23 Pantoprazole [Protonix Tab] 40 mg PO BID #60 tab 06/25/23 carvediloL [Coreg*] 6.25 mg PO BIDWM tab 06/25/23 lisinopriL [Prinivil*] 10 mg PO DAILY tab 06/25/23 - Past Medical/Surgical History -: Hip replacements -: Chronic hip/back Pain -: HTN -: GI bleed -: constipation -: NSTEMI (06/11/2023) -: gastroenteritis (06/11/2023) - Social History Alcohol use: No CD- Drugs: No Caffeine use: No Review of Systems 10-point ROS is otherwise unremarkable Physical Examination - Physical Exam General: Alert, In no apparent distress, Oriented x3 HEENT: Atraumatic, Normocephalic, PERRLA Neck: Supple, 2+ carotid pulse no bruit, JVD not distended Respiratory: Clear to auscultation bilaterally, Normal air movement Cardiovascular: No edema, Normal pulses, Regular rate/rhythm Capillary refill: <2 Seconds Gastrointestinal: Normal bowel sounds, Soft and benign Musculoskeletal: No clubbing, No swelling, Other (Moderate generalized weakness previous CVA) Integumentary: No rashes, No breakdown - Studies Laboratory Data (last 24 hrs) 06/25/23 06/25/23 20:27 20:27 WBC 16.60 H Hgb 11.6 L D Hct 34.9 L Plt Count 359 Sodium 129 L Potassium 5.0 BUN 28 H Creatinine 0.92 Glucose 112 H Microbiology Data (last 24 hrs): 06/25/23 20:27 Nasopharnyx Influenza Type A Antigen Screen - Final 06/25/23 20:27 Nasopharnyx Influenza Type B Antigen Screen - Final Assessment and Plan - Plan Assessment plan Leukocytosis Hyponatremia Acute CVA, small left pontine infarct Hypotension, unclear etiology, suspect polypharmacy lactic acidosis secondary to hypotension elevated LFTs h/o GI bleed Constipation Recent NSTEMI Chronic hip pain DVT prophylaxis Leukocytosis IV Rocephin Hyponatremia IV fluids Acute CVA, small left pontine infarct CT head (06/20): No acute intracranial abnormality CTA head(06/20): 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 Note that the patient has a origin of the right ANT[place]QUE[place] FILLER MRI brain (06/20): Small acute left pontine infarct. Background of moderate chronic small vessel ischemic changes UA: unremarkable Neuro consulted, patient seen by Dr. Zimmer who suspected the R ANTISQUE[place] FILLER occlusion is chronic small left pontine infarct secondary to hypotension Managed with aspirin, plavix, folic acid, statin Patient seen and evaluated repeat. She had no focal deficit. Her blood pressure improved, became hypertensive necessitating resumption of her antihypertensives. Hypotension, unclear etiology, suspect polypharmacy lactic acidosis secondary to hypotension elevated LFTs Reported drop in blood pressure in the half-way. Likely medication related. lactic acidosis, no evidence of infection /sepsis; suspect this is secondary to hypotension / decreased perfusion Blood pressure has improved and patient is currently normotensive. elevated LFTs - suspect secondary to hypotension; does have history of alcohol use, last drink was 2 weeks ago. h/o GI bleed Constipation EGD 2018 reported Duodenal ulcer, esophageal erosion, no acute bleeds Recently seen at [facility] for generalized weakness, nausea, vomiting. CT abdomen (06/20): Showed mesenteric edema, distended gallbladder, acute cholecystitis was not ruled out, moderate stool burden Patient has been asymptomatic, no abdominal pain. Hemoglobin dropped but remained stable during the hospital stay. Laxatives. No evidence of active bleeding. Recent NSTEMI troponins negative x2 Seen by cardiology. Patient had a recent cardiac cath with patent coronary arteries. Elevated troponin deemed secondary to demand ischemia. No further intervention per cardiology. Chronic hip pain/right knee pain PRN pain medication Patient received PT. Diet cardiac Full code DVT Discharge Plan: Other Plan to discharge in: 24 Hours - Advance Directives Does patient have a Living Will: No Does patient have a Durable POA for Healthcare: No - Code Status/Comfort Care Code Status: Full Code Physician Review: Patient Assessed, Agree with Above Assessment and Plan Critical Care: No Time Spent Managing Pts Care (In Minutes): 50
[2023-06-26 01:19] VITALS: BMI 17.4
[2023-06-26 04:27] LABS: Absolute Lymphocytes (CBC) 1.2 K/uL (0.7-4.9); Hematocrit 28.5 % (36.0-45.0); Lymphocytes % 13.6 % (15.3-44.8); MCV 90.3 fL (80-100); MPV 6.8 fL (7.6-11.3); Platelets 275 thou/uL (152-406); RBC Red Blood Cell Count 3.16 M/uL (3.86-4.86)
[2023-06-26] MEDS: NA CHLORIDE 0.9% 1,000 ML IV SCH ×2 (04:29→14:09)
[2023-06-26] MEDS: CEFTRIAXONE 2,000 MG in NA CHLORIDE 0.9% 100 ML IV SCH ×2 (04:29→08:22)
[2023-06-26 04:48] LABS: Magnesium 2.4 mg/dL (1.6-2.4); Potassium 4.7 mEq/L (3.5-5.1)
[2023-06-26] MEDS: ENOXAPARIN 40 MG/0.4 ML SQ SCH (08:22)
--- NOTE | 2023-06-26 08:47 | P.DS ---
Admission Date: 06/26/23 Discharge Date: 06/29/23 Disposition: AMA-LEFT AGAINST MEDICAL ADVIC Discharge Condition: FAIR Reason for Admission: leukocytosis Brief History of Present Illness: 73-year-old female with a past medical history of GI bleed, constipation, recent NSTEMI, recent gastroenteritis, small acute left pontine infarct Was dischargedto home. Patient called friend to pick her up instead of family. Her son tried to take her to [facility] but [facility] denied her admission, stated "she didn't have orders for SNF admission. Son then terence her to the ED. Per DC summary She was ambulating with a walker and was discharged to home with home health for PT and alf. Laboratory evaluation on arrival to the ER hyponatremia 129, BUN elevated at 28, leukocytosis WBCs 16.60, with a left shift at 81.4, chest x-ray IMPRESSION: No acute intrathoracic process suspected. Venous Doppler IMPRESSION: No sonographic evidence of left or right lower extremity deep venous thrombosis. Patient was hospitalized for further management. Hospital Course: Diagnosis Acute CVA, small left pontine infarct Hypotension, unclear etiology, suspect polypharmacy lactic acidosis secondary to hypotension elevated LFTs h/o GI bleed Constipation Recent NSTEMI Chronic hip pain Right knee joint effusion/arthritis. Patient admitted to the medical floor and the following medical problems addressed: Acute CVA, small left pontine infarct Stable cont aspirin, plavix, folic acid, statin Continued PT. h/o GI bleed Constipation Patient was asymptomatic, no abdominal pain. Hemoglobin has been stable Laxatives as needed. Chronic hip pain/right knee osteoarthritis Arthrocentesis done. Joint fluid culture: No growth to date. No crystals. PRN pain medication Continued PT. Social service was assisting with skilled rehab placement. Patient signed out AGAINST MEDICAL ADVICE, declining placement at skilled rehab. She states that she cannot wait in the hospital anymore and does not want to go to skilled rehab. Patient was convinced to stay for PT evaluation to make sure it is safe for her to go home. She was adamant on leaving the hospital and sign out AGAINST MEDICAL ADVICE Hyponatremia Stable Monitor renal function. Fever An episode of fever noted in the ED No more fever. Clear chest x-ray. Joint fluid culture showed no growth. Influenza screen was negative. Vital Signs/Physical Exam: Temp Pulse Resp BP Pulse Ox 99.2 F 73 18 138/71 97 08/24/23 07:59 06/26/23 07:59 06/26/23 07:59 06/26/23 07:59 06/26/23 07:59 Laboratory Data at Discharge: WBC 8.80 thou/uL (4.3-10.9) 06/26/23 04:01 Hgb 9.9 g/dL (12.0-15.0) L D 06/26/23 04:01 Hct 28.5 % (36.0-45.0) L 06/26/23 04:01 Plt Count 275 thou/uL (152-406) 06/26/23 04:01 Sodium 131 mEq/L (136-145) L 06/26/23 04:01 Potassium 4.7 mEq/L (3.5-5.1) 06/26/23 04:01 BUN 31 mg/dL (7-18) H 06/26/23 04:01 Creatinine 1.00 mg/dL (0.55-1.02) 06/26/23 04:01 Glucose 100 mg/dL (74-106) 06/26/23 04:01 Magnesium 2.4 mg/dL (1.6-2.4) 06/26/23 04:01 Home Medications: Acetaminophen [Tylenol] 650 mg PO Q6HR 06/20/23 Aspirin Chewable [Aspirin Chewable*] 81 mg PO DAILY 06/20/23 Atorvastatin Calcium 40 mg PO BEDTIME 06/20/23 Cyanocobalamin (Vitamin B-12) [Vitamin B-12] 1,000 mcg PO DAILY 06/20/23 Melatonin 3 mg PO BEDTIME 06/20/23 Clopidogrel Bisulfate [Plavix*] 75 mg PO DAILY 06/25/23 Docusate [Colace Cap*] 100 mg PO BID cap 06/25/23 Pantoprazole [Protonix Tab*] 40 mg PO BID #60 tab 06/25/23 carvediloL [Coreg*] 6.25 mg PO BIDWM tab 06/25/23 lisinopriL [Prinivil*] 10 mg PO DAILY tab 06/25/23 Followup: Sky Wright MD [ACTIVE - CAN ADMIT] - (within 2 to 4 weeks.) Karena Pickett MD [OUTSIDE PHYSICIAN] -
[2023-06-26] MEDS ORDERED: LIDOCAINE 1% MPF 5 ML VIAL ONE (11:12)
[2023-06-26 13:11] LABS: Body Fluid Source SYNOVIAL
[2023-06-26 13:12] LABS: Appearance VERY TURBID (CLEAR); Body Fluid WBC 46700 /mm^3; Color of fluid Yellow (COLORLESS)
[2023-06-26] MEDS: HYDRALAZINE HCL 20 MG/ML VIAL IV PRN (16:21)
--- NOTE | 2023-06-26 20:14 | P.PN ---
Subjective Date of Service: 06/26/23 Chief Complaint: leukocytosis Patient reports pain and swelling in the right knee. She reports difficulty with walking associated with the pain. Physical Examination - Vital Signs Temperature: 99.2 F Blood Pressure: 138/71 Pulse: 73 Respirations: 18 Pulse Ox (%): 97 - Studies Laboratory Data (last 24 hrs) 06/25/23 06/25/23 20:27 20:27 WBC 16.60 H Hgb 11.6 L D Hct 34.9 L Plt Count 359 Sodium 129 L Potassium 5.0 BUN 28 H Creatinine 0.92 Glucose 112 H Microbiology Data (last 24 hrs): 06/25/23 20:27 Nasopharnyx Influenza Type A Antigen Screen - Final 06/25/23 20:27 Nasopharnyx Influenza Type B Antigen Screen - Final Assessment And Plan - Plan Physical Exam: GEN: Alert, oriented, NAD HEENT: Normal conjunctiva, sclera anicteric CV: Regular rate and rhythm, no edema Pulm: Nonlabored respirations, clear to auscultation bilaterally. ABD: Soft, nontender, nondistended Integumentary: No rashes Neuro: Normal speech, normal affect Musculoskeletal: Right knee swollen and tender to palpation. vitals reviewed Diagnosis Acute CVA, small left pontine infarct Hypotension, unclear etiology, suspect polypharmacy lactic acidosis secondary to hypotension elevated LFTs h/o GI bleed Constipation Recent NSTEMI Chronic hip pain Right knee joint effusion/arthritis. Acute CVA, small left pontine infarct Stable cont aspirin, plavix, folic acid, statin Continue PT. Patient is currently normotensive. cont low doses of anti-hypertensives, stepwise and as appropriate h/o GI bleed Constipation Patient is asymptomatic, no abdominal pain. Monitor. Hemoglobin has been stable Laxatives as needed. Chronic hip pain/right knee pain. Arthrocentesis done PRN pain medication Continue PT. Patient would like to explore the option of skilled rehab. Social service consulted to evaluate for skilled rehab placement. Hyponatremia Monitor renal function. Fever An pisode of fever noted in the ED Obtain urinalysis. Empiric antibiotics.
--- NOTE | 2023-06-26 20:17 | P.PN ---
Date of Service: 06/26/23 Swollen and tender right knee. Examination shows fluctuant swelling of right knee indicating joint effusion. Lateral and superior aspect of the right patella cleaned with alcohol rub 1% lidocaine used to anesthetize the area. Joint fluid aspirated with a syringe and needle from the lateral aspect of the right knee. About 50 mL of straw-colored joint fluid aspirated. Samples sent for crystal analysis, cell count and culture. Patient tolerated the procedure.
[2023-06-26] MEDS: ACETAMINOPHEN 500 MG TAB PO PRN (20:46)
[2023-06-26] MEDS: ALPRAZOLAM 0.25 MG TABLET PO PRN (20:46)
[2023-06-27] MEDS: NA CHLORIDE 0.9% 1,000 ML IV SCH ×2 (00:09→10:09)
[2023-06-27 06:59] LABS: Absolute Lymphocytes (CBC) 0.8 K/uL (0.7-4.9); Hematocrit 34.8 % (36.0-45.0); Lymphocytes % 6.8 % (15.3-44.8); MCV 89.9 fL (80-100); MPV 7.1 fL (7.6-11.3); Platelets 323 thou/uL (152-406); RBC Red Blood Cell Count 3.87 M/uL (3.86-4.86)
[2023-06-27 07:14] LABS: Potassium 4.5 mEq/L (3.5-5.1)
[2023-06-27] MEDS: CEFTRIAXONE 2,000 MG in NA CHLORIDE 0.9% 100 ML IV SCH (09:09)
[2023-06-27] MEDS: ENOXAPARIN 40 MG/0.4 ML SQ SCH (09:09)
[2023-06-27] MEDS: HYDRALAZINE HCL 20 MG/ML VIAL IV PRN ×2 (12:17→21:11)
[2023-06-27] MEDS: HYDROCODONE/APAP 5/325 MG TAB PO PRN ×2 (14:40→21:11)
--- NOTE | 2023-06-27 18:20 | P.PN ---
Subjective Date of Service: 06/27/23 Chief Complaint: leukocytosis Patient reports pain in the right knee is better. No issues overnight. She has been afebrile. Physical Examination - Vital Signs Temperature: 98.5 F Blood Pressure: 182/109 Pulse: 98 Respirations: 17 Pulse Ox (%): 99 Assessment And Plan - Plan Physical Exam: GEN: Alert, oriented, NAD HEENT: Normal conjunctiva, sclera anicteric CV: Regular rate and rhythm, no edema Pulm: Nonlabored respirations, clear to auscultation bilaterally. ABD: Soft, nontender, nondistended Integumentary: No rashes Neuro: Normal speech, normal affect Musculoskeletal: Right knee swollen and tender to palpation. vitals reviewed Diagnosis Acute CVA, small left pontine infarct Hypotension, unclear etiology, suspect polypharmacy lactic acidosis secondary to hypotension elevated LFTs h/o GI bleed Constipation Recent NSTEMI Chronic hip pain Right knee joint effusion/arthritis. Acute CVA, small left pontine infarct Stable cont aspirin, plavix, folic acid, statin Continue PT. Patient is currently normotensive. h/o GI bleed Constipation Patient is asymptomatic, no abdominal pain. Hemoglobin has been stable Laxatives as needed. Chronic hip pain/right knee pain. Arthrocentesis done. Joint fluid culture: No growth to date. PRN pain medication Continue PT. Patient would like to explore the option of skilled rehab. Social service consulted to evaluate for skilled rehab placement. Hyponatremia Almost resolved. Monitor renal function. Fever An episode of fever noted in the ED No more fever. Joint fluid culture showed no growth. Influenza screen is negative. Continue empiric antibiotics.
[2023-06-27] MEDS: AMLODIPINE 5 MG TAB PO SCH (18:36)
[2023-06-27] MEDS: lisinopriL 10 MG TAB PO SCH (18:37)
[2023-06-27] MEDS: carvediloL 6.25 MG TAB PO SCH (19:52)
[2023-06-27] MEDS: PANTOPRAZOLE 40MG TABLET PO SCH (19:52)
[2023-06-27] MEDS: MELATONIN 3 MG TABLET PO SCH (19:52)
[2023-06-27] MEDS: DOCUSATE NA 100 MG CAP PO SCH (19:52)
[2023-06-27] MEDS: ENSURE ENLIVE 237 ML CAN PO SCH (19:53)
[2023-06-27] MEDS: ATORVASTATIN 40 MG TAB PO SCH (19:53)
[2023-06-27] MEDS: ALPRAZOLAM 0.25 MG TABLET PO PRN (19:55)
[2023-06-28] MEDS ORDERED: MELATONIN 5 MG TABLET PO PRN (00:19)
[2023-06-28 03:55] LABS: Hematocrit 35.6 % (36.0-45.0); Lymphocytes % 9.5 % (15.3-44.8); MCV 90.4 fL (80-100); MPV 6.9 fL (7.6-11.3); Platelets 372 thou/uL (152-406); RBC Red Blood Cell Count 3.94 M/uL (3.86-4.86)
[2023-06-28 04:04] LABS: Potassium 3.9 mEq/L (3.5-5.1)
[2023-06-28] MEDS: HYDROCODONE/APAP 5/325 MG TAB PO PRN ×3 (04:52→22:41)
[2023-06-28] MEDS: HYDRALAZINE HCL 20 MG/ML VIAL IV PRN (04:56)
[2023-06-28] MEDS: ACETAMINOPHEN 500 MG TAB PO PRN (08:20)
[2023-06-28] MEDS: CYANOCOBALAMIN 1,000 MCG TAB PO SCH (08:20)
[2023-06-28] MEDS: PANTOPRAZOLE 40MG TABLET PO SCH ×2 (08:20→20:33)
[2023-06-28] MEDS: lisinopriL 10 MG TAB PO SCH (08:21)
[2023-06-28] MEDS: CLOPIDOGREL 75 MG TABLET PO SCH (08:21)
[2023-06-28] MEDS: DOCUSATE NA 100 MG CAP PO SCH ×2 (08:21→20:33)
[2023-06-28] MEDS: carvediloL 6.25 MG TAB PO SCH ×2 (08:21→16:56)
[2023-06-28] MEDS: ENOXAPARIN 40 MG/0.4 ML SQ SCH (08:22)
[2023-06-28] MEDS: CEFTRIAXONE 2,000 MG in NA CHLORIDE 0.9% 100 ML IV SCH ×2 (08:22→08:26)
[2023-06-28] MEDS: ASPIRIN 81 MG CHEWABLE TABLET PO SCH (08:22)
[2023-06-28] MEDS: ENSURE ENLIVE 237 ML CAN PO SCH ×2 (08:26→20:36)
[2023-06-28] MEDS ORDERED: OXYCODONE HCL 5 MG TAB PO ONE (09:42)
--- NOTE | 2023-06-28 12:20 | P.PN ---
Subjective Date of Service: 06/28/23 Chief Complaint: leukocytosis Patient has no new complaint. She states her right knee pain is well controlled. No issues overnight. Physical Examination - Vital Signs Temperature: 98.4 F Blood Pressure: 136/78 Pulse: 95 Respirations: 16 Pulse Ox (%): 96 Assessment And Plan - Plan Physical Exam: GEN: Alert, oriented, NAD HEENT: Normal conjunctiva, sclera anicteric CV: Regular rate and rhythm, no edema Pulm: Nonlabored respirations, clear to auscultation bilaterally. ABD: Soft, nontender, nondistended Integumentary: No rashes Neuro: Normal speech, normal affect Musculoskeletal: Right knee swollen and tender to palpation. vitals reviewed Diagnosis Acute CVA, small left pontine infarct Hypotension, unclear etiology, suspect polypharmacy lactic acidosis secondary to hypotension elevated LFTs h/o GI bleed Constipation Recent NSTEMI Chronic hip pain Right knee joint effusion/arthritis. Acute CVA, small left pontine infarct Stable cont aspirin, plavix, folic acid, statin Continue PT. Patient is currently normotensive. h/o GI bleed Constipation Patient is asymptomatic, no abdominal pain. Hemoglobin has been stable Laxatives as needed. Chronic hip pain/right knee osteoarthritis Arthrocentesis done. Joint fluid culture: No growth to date. No crystals. PRN pain medication Continue PT. Social service assisting with skilled rehab placement. Hyponatremia Almost resolved. Monitor renal function. Fever An episode of fever noted in the ED No more fever. Joint fluid culture showed no growth. Influenza screen is negative. Discontinue IV Rocephin.
[2023-06-28] MEDS: AMLODIPINE 5 MG TAB PO SCH (12:49)
[2023-06-28] MEDS ORDERED: HYDROCODONE/APAP 5/325 MG TAB PO ONE (17:51)
[2023-06-28] MEDS: ATORVASTATIN 40 MG TAB PO SCH (20:33)
[2023-06-28] MEDS: ALPRAZOLAM 0.25 MG TABLET PO PRN (20:36)
[2023-06-28] MEDS: MELATONIN 3 MG TABLET PO SCH (20:38)
[2023-06-29] MEDS: ACETAMINOPHEN 500 MG TAB PO PRN ×2 (01:27→10:50)
[2023-06-29 02:08] LABS: Specific Gravity 1.007 (1.005-1.030); Urine Bacteria <20 /HPF (<20); Urine Bilirubin NEGATIVE (Negative); Urine Blood 3+ (OVER) (Negative); Urine Clarity Extremely Turbid (Clear); Urine Color Light-Brown (Yellow); Urine Glucose NEGATIVE (Negative); Urine Protein 1+ (Negative); Urine RBC 21-50 /HPF (None Seen); Urine Urobilinogen Normal (Normal)
[2023-06-29 04:11] LABS: Phosphorus 3.5 mg/dL (2.5-4.9); Potassium 3.9 mEq/L (3.5-5.1)
[2023-06-29] MEDS: HYDROCODONE/APAP 5/325 MG TAB PO PRN (06:09)
[2023-06-29] MEDS: ENOXAPARIN 40 MG/0.4 ML SQ SCH (08:20)
[2023-06-29] MEDS: lisinopriL 10 MG TAB PO SCH (08:22)
[2023-06-29] MEDS: PANTOPRAZOLE 40MG TABLET PO SCH (08:22)
[2023-06-29] MEDS: carvediloL 6.25 MG TAB PO SCH ×2 (08:22→16:38)
[2023-06-29] MEDS: CLOPIDOGREL 75 MG TABLET PO SCH (08:23)
[2023-06-29] MEDS: CYANOCOBALAMIN 1,000 MCG TAB PO SCH (08:23)
[2023-06-29] MEDS: ASPIRIN 81 MG CHEWABLE TABLET PO SCH (08:23)
[2023-06-29] MEDS: DOCUSATE NA 100 MG CAP PO SCH (08:23)
[2023-06-29] MEDS: ENSURE ENLIVE 237 ML CAN PO SCH (08:24)
[2023-06-29 09:00] VITALS: O2SAT 98
[2023-06-29] MEDS ORDERED: POTASSIUM CL SA 10 MEQ TAB PO ONE (09:00)
[2023-06-29] MEDS ORDERED: MAGNESIUM CITRATE 300 ML BOT PO SCH (10:00)
[2023-06-29] MEDS: AMLODIPINE 5 MG TAB PO SCH (11:40)
[2023-06-29] MEDS: HYDRALAZINE HCL 20 MG/ML VIAL IV PRN (11:41)
--- NOTE | 2023-06-29 13:13 | P.PN ---
Subjective Date of Service: 06/29/23 Chief Complaint: leukocytosis Patient has no new complaint. She states her right knee pain is much better She reports restless leg. Physical Examination - Vital Signs Temperature: 98.3 F Blood Pressure: 172/76 Pulse: 76 Respirations: 18 Pulse Ox (%): 98 Assessment And Plan - Plan Physical Exam: GEN: Alert, oriented, NAD HEENT: Normal conjunctiva, sclera anicteric CV: Regular rate and rhythm, no edema Pulm: Nonlabored respirations, clear to auscultation bilaterally. ABD: Soft, nontender, nondistended Integumentary: No rashes Neuro: Normal speech, normal affect Musculoskeletal: Right knee swollen and tender to palpation. vitals reviewed Diagnosis Acute CVA, small left pontine infarct Hypotension, unclear etiology, suspect polypharmacy lactic acidosis secondary to hypotension elevated LFTs h/o GI bleed Constipation Recent NSTEMI Chronic hip pain Right knee joint effusion/arthritis. Acute CVA, small left pontine infarct Stable cont aspirin, plavix, folic acid, statin Continue PT. h/o GI bleed Constipation Patient is asymptomatic, no abdominal pain. Hemoglobin has been stable Laxatives as needed. Chronic hip pain/right knee osteoarthritis Arthrocentesis done. Joint fluid culture: No growth to date. No crystals. PRN pain medication Continue PT. Social service assisting with skilled rehab placement. Hyponatremia Stable Monitor renal function. Fever An episode of fever noted in the ED No more fever. Joint fluid culture showed no growth. Influenza screen is negative.
[2023-06-29 21:20] VITALS: BP 130/87; TEMP 98.2
[2023-06-29] MEDS ORDERED: ALPRAZOLAM 0.25 MG TABLET PO PRN (22:52)
== END 2023-06-29 20:30 | disposition left against medical advice (07) ==
LOC: ER 19:44 → ERHOLD 06-26 00:03 → 4TH 06-26 00:48 → 2ND 06-26 00:51
PROVIDERS: ADMIT Internal Medicine; ATTEND Internal Medicine
DX: D72.829 Elevated white blood cell count, unspecified (principal); R53.1 Weakness; E87.1 Hypo-osmolality and hyponatremia; I95.9 Hypotension, unspecified; R79.89 Other specified abnormal findings of blood chemistry; M25.461 Effusion, right knee; M17.11 Unilateral primary osteoarthritis, right knee; M25.551 Pain in right hip; M25.561 Pain in right knee; R50.9 Fever, unspecified; G25.81 Restless legs syndrome; K59.00 Constipation, unspecified; Z20.822 Contact with and (suspected) exposure to COVID-19; Z86.73 Personal history of transient ischemic attack (TIA), and cerebral infarction without residual deficits
CPT/HCPCS: 87070; 85025 ×4; 81001; 80048 ×5; 36415 ×3; 89050; 83735; 84100; 89060; 87804 ×2; 71045; 93970; 97116 ×2; 97161; 97530; 99285; 87811; J0360 ×5; J2001; J1650 ×4; J0696 ×6; J7030; G0378

== ENCOUNTER 2024-07-05 20:43 | Emergency (ER) | payer OTHER, BC ==
--- NOTE | 2024-07-05 21:34 | RAD REPORT ---
EXAM DESCRIPTION: RAD - Chest Single View - 07/05/2024 9:28 pm CLINICAL HISTORY: upper abdomen pain COMPARISON: Head angio dated 06/27/2024; Ct Stroke Brain Wo Cont dated 06/27/2024hest Single View yordan ed 06/25/2023; Chest Single View dated 06/20/2023; Chest Pa And Lat (2 Views) dated 07/09/2019 FINDINGS: Lines: None. Lungs: No evidence of edema or pneumonia. Increased vascular crowding at the right medial lung base l ikely due to some atelectasis. Pleural: No significant pleural effusions or pneumothorax. Cardiac: The heart size is within normal limits. Mediastinum: Within normal limits. Bones: No acute fractures. Other: None IMPRESSION: No acute cardiopulmonary disease.
[2024-07-05] MEDS ORDERED: ONDANSETRON 4 MG/2 ML VIAL ONE (21:48)
[2024-07-05] MEDS ORDERED: PANTOPRAZOLE 40 MG INJ ONE ×2 (21:48→22:58)
[2024-07-05] MEDS ORDERED: MORPHINE 4 MG/ML SYR ONE (21:49)
[2024-07-05 22:09] LABS: Absolute Basophils 0.1 K/uL (0-0.5); Absolute Eosinophils 0.1 K/uL (0-0.5); Absolute Lymphocytes (CBC) 0.8 K/uL (0.7-4.9); Absolute Monocytes 0.5 K/uL (0.1-1.3); Absolute Neutrophil 6.6 K/uL (1.8-8.0); Basophils % 0.6 % (0-1.3); Eosinophils % 0.7 % (0-4.4); Hematocrit 12.7 % (36.0-45.0); Lymphocytes % 10.2 % (15.3-44.8); MCH 24.8 pg (27.0-35.0); MCHC 31.3 g/dL (32.0-36.0); MCV 79.3 fL (80-100); MPV 7.5 fL (7.6-11.3); Monocytes % 6.4 % (3.3-12.3); Neutrophils % 82.1 % (41.7-73.7); Nucleated Red Blood Cells % 0.1 % (0-0); Platelets 298 thou/uL (152-406); Red Cell Distribution Width 18.8 % (12.1-15.2)
[2024-07-05 22:12] LABS: PT Prothrombin Time 11.7 SECONDS (9.4-12.5); PTT, Activated Partial Thromb 30.4 SECONDS (24.3-36.9); Protime INR 1.05
[2024-07-05 22:24] LABS: AST/SGOT 13 U/L (15-37); Albumin 2.9 g/dL (3.4-5.0); Albumin/Globulin Ratio 0.8 (1.1-1.8); Alkaline Phosphatase 96 U/L (45-117); BUN Blood Urea Nitrogen 23 mg/dL (7-18); Bicarbonate 22 mEq/L (21-32); Bilirubin Total 0.5 mg/dL (0.2-1.0); Globulin 3.6 g/dL (2.3-3.5); Glomerular Filtration Rate 40 ml/min (=/>90); Glucose Level 125 mg/dL (74-106); Lipase 22 U/L (13-75); Magnesium 2.3 mg/dL (1.6-2.4); NT PRO-BNP 5421 pg/mL (<125); Protein, Total 6.5 g/dL (6.4-8.2); Sodium Level 138 mEq/L (136-145); Troponin High Sensitivity 42.2 pg/mL (<58.9)
[2024-07-05 22:25] LABS: ALT/SGPT < 14 U/L (13-56); Bilirubin Direct < 0.2 mg/dL (0-0.2); Bilirubin Indirect, Calculated 0.3 mg/dL (0.2-0.8)
[2024-07-05] MEDS ORDERED: NA CHLORIDE 0.9% 500 ML ONE (22:39)
--- NOTE | 2024-07-05 22:48 | ER ---
Nurse's Notes [facility] Name: Trish Vergara Age: 74 yrs Sex: Female : 1950 Arrival Date: 07/05/2024 Time: 20:43 Bed 15 Private MD: Diagnosis: Anemia in other chronic diseases classified elsewhere;GI Bleed/ Gastrointestinal hemorrhage, unspecified;Gallbladder Distension Presentation: 07/05 20:51 Chief complaint: Patient states: abdominal pain that started yesterday. Family also cp4 reports dark stools and vomiting. Coronavirus screen: Vaccine status: Patient reports receiving the 2nd dose of the covid vaccine. Patient reports receiving the 1st dose of the Covid vaccine. Client denies travel out of the [place] in the last 14 days. At this time, the client does not indicate any symptoms associated with coronavirus-19. Ebola Screen: Patient negative for fever greater than or equal to 101.5 degrees Fahrenheit, and additional compatible Ebola Virus Disease symptoms Patient denies exposure to infectious person. Patient denies travel to an Ebola-affected area in the 21 days before illness onset. No symptoms or risks identified at this time. Initial Sepsis Screen: Does the patient meet any 2 criteria? No. Patient's initial sepsis screen is negative. Does the patient have a suspected source of infection? No. Patient's initial sepsis screen is negative. Risk Assessment: Do you want to hurt yourself or someone else? Patient reports no desire to harm self or others. Onset of symptoms was July 04, 2024. 20:51 Method Of Arrival: Wheelchair cp4 20:51 Acuity: MERCEDES 3 cp4 Triage Assessment: 20:53 General: Appears uncomfortable, Behavior is calm, cooperative, appropriate for age. cp4 Pain: Complains of pain in abdomen. GI: Reports nausea, vomiting. Historical: - Allergies: 20:53 Benadryl; cp4 20:53 Phenergan; cp4 20:53 Talwin; cp4 - PMHx: 20:53 8 hip replacements; Chronic pain; plate in back; cp4 - Immunization history:: Adult Immunizations up to date. - Infectious Disease History:: Denies. - Social history:: Smoking status: Patient denies any tobacco usage or history of. Screenin:04 [facility] ED Fall Risk Assessment (Adult) History of falling in the last 3 months, tm6 including since admission No falls in past 3 months (0 pts) Confusion or Disorientation No (0 pts) Intoxicated or Sedated No (0 pts) Impaired Gait No (0 pts) Mobility Assist Device Used No (0 pt) Altered Elimination No (0 pt) Score/Fall Risk Level 0 - 2 = Low Risk Oriented to surroundings, Maintained a safe environment, Educated pt \T\ family on fall prevention, incl call for assistance when getting out of bed. Abuse screen: Denies threats or abuse. Denies injuries from another. Nutritional screening: No deficits noted. Tuberculosis screening: No symptoms or risk factors identified. Assessment: 21:04 General: Appears in no apparent distress. Behavior is calm, cooperative. Pain: tm6 Complains of pain in abdomen Pain does not radiate. Pain currently is 8 out of 10 on a pain scale. Quality of pain is described as burning, sharp, Pain began 1 day ago. Also complains of nausea. Neuro: Level of Consciousness is awake, alert, obeys commands, Oriented to person, place, time, situation. Cardiovascular: Patient's skin is warm and dry. Respiratory: Airway is patent Respiratory effort is even, unlabored, Respiratory pattern is regular, symmetrical. GI: Bowel sounds present X 4 quads. Abd is soft and non tender X 4 quads. Reports bloody stool, nausea, vomiting. GI: Abdomen is flat, non-distended, Reports lower abdominal pain, upper abdominal pain. : No signs and/or symptoms were reported regarding the genitourinary system. EENT: No signs and/or symptoms were reported regarding the EENT system. Derm: No signs and/or symptoms reported regarding the dermatologic system. Musculoskeletal: No signs and/or symptoms reported regarding the musculoskeletal system. 22:00 General: Appears in no apparent distress. uncomfortable, Behavior is calm, cooperative, cp4 appropriate for age. Pain: Complains of pain in abdomen Pain does not radiate. Pain currently is 8 out of 10 on a pain scale. Neuro: Level of Consciousness is awake, alert, obeys commands, Oriented to person, place, time, situation. Cardiovascular: Patient's skin is warm and dry. Respiratory: Airway is patent Respiratory effort is even, unlabored, Respiratory pattern is regular, symmetrical. GI: No deficits noted. Abdomen is flat, non-distended, Bowel sounds present X 4 quads. Abd is soft and non tender X 4 quads. Reports bloody stool, nausea, vomiting. : No signs and/or symptoms were reported regarding the genitourinary system. EENT: No signs and/or symptoms were reported regarding the EENT system. Derm: No signs and/or symptoms reported regarding the dermatologic system. Musculoskeletal: No signs and/or symptoms reported regarding the musculoskeletal system. 23:00 Reassessment: Patient appears in no apparent distress at this time. Patient and/or cp4 family updated on plan of care and expected duration. Pain level reassessed. Patient is alert, oriented x 3, equal unlabored respirations, skin warm/dry/pink. 07/06 00:00 Reassessment: Patient appears in no apparent distress at this time. Patient and/or cp4 family updated on plan of care and expected duration. Pain level reassessed. Patient is alert, oriented x 3, equal unlabored respirations, skin warm/dry/pink. 00:00 Reassessment:. cp4 01:00 Reassessment: Patient appears in no apparent distress at this time. Patient and/or cp4 family updated on plan of care and expected duration. Pain level reassessed. Patient is alert, oriented x 3, equal unlabored respirations, skin warm/dry/pink. See blood transfusion record for vital signs. 02:00 Reassessment: Patient appears in no apparent distress at this time. Patient and/or cp4 family updated on plan of care and expected duration. Pain level reassessed. Patient is alert, oriented x 3, equal unlabored respirations, skin warm/dry/pink. 03:00 Reassessment: Patient appears in no apparent distress at this time. Patient and/or cp4 family updated on plan of care and expected duration. Pain level reassessed. Patient is alert, oriented x 3, equal unlabored respirations, skin warm/dry/pink. Vital Signs: 07/05 20:51 BP 146 / 69; Pulse 89; Resp 18; Temp 98.4; Pulse Ox 100% ; Weight 54.43 kg; Height 5 cp4 ft. 11 in. ; Pain 10/10; 22:00 BP 138 / 61; Pulse 90; Resp 18; Pulse Ox 99% ; cp4 23:00 BP 139 / 76; Pulse 88; Resp 18; Pulse Ox 97% ; cp4 20:51 Body Mass Index 16.74 (54.43 kg, 180.34 cm) cp4 20:51 Pain Scale: Adult cp4 ED Course: 20:46 Patient arrived in ED. mr 20:51 Gabriele Riddle PA is PHCP. cp 20:51 Huey Villafuerte MD is Attending Physician. cp 20:53 Triage completed. cp4 20:54 Arm band placed on right wrist. Patient placed in waiting room. cp4 21:02 Aileen Vale, LAVONNE is Primary Nurse. tm6 21:04 Patient has correct armband on for positive identification. Bed in low position. Call tm6 light in reach. Side rails up X 1. Provided Education on: use of call stewart. Client placed on continuous cardiac and pulse oximetry monitoring. NIBP monitoring applied. Pulse ox on. NIBP on. Door closed. Noise minimized. Warm blanket given. Pillow given. 21:30 XRAY Chest (1 view) In Process Unspecified. EDMS 22:01 Basic Metabolic Panel Sent. tm6 22:02 CBC with Diff Sent. tm6 22:02 LFT's Sent. tm6 22:02 Magnesium Sent. tm6 22:02 NT PRO-BNP Sent. tm6 22:02 PT-INR Sent. tm6 22:02 Troponin HS Sent. tm6 22:02 Lipase Sent. tm6 22:02 Type And Screen Sent. tm6 22:02 Ptt, Activated Sent. tm6 22:02 Inserted saline lock: 22 gauge in right forearm, using aseptic technique. Blood tm6 collected. Flushed with 10 mL NS. 22:06 Report given to Karlee BANERJEE. tm6 22:14 Karlee Mckeon is Primary Nurse. cp4 22:16 Notified Nurse Practitioner and/or Physician Car Pincher of a critical lab result(s), hgb al5 4.0. 23:00 CT Abd/Pelvis - IV Contrast Only In Process Unspecified. EDMS 23:18 Inserted saline lock: 20 gauge in left antecubital area, using aseptic technique. Blood cp4 collected. Flushed with 10 mL NS. 07/06 03:36 No provider procedures requiring assistance completed. Patient transferred, IV remains cp4 in place. Administered Medications: 07/05 22:03 Drug: Pantoprazole IVP 40 mg IVP once Route: IVP; Site: right forearm; tm6 22:30 Follow up: Response: No adverse reaction cp4 22:03 Drug: morphine IVP or IV 4 mg IVP once over 4 mins Route: IVP; Infused Over: 4 mins; tm6 Site: right forearm; 22:30 Follow up: Response: No adverse reaction; Pain is decreased cp4 22:03 Drug: Ondansetron IVP 4 mg IVP once; over 2 minutes Route: IVP; Site: right forearm; tm6 22:30 Follow up: Response: No adverse reaction cp4 23:19 Drug: Pantoprazole IV 8 mg/hr IV at 25 ml/hr continuous; (Standard dilution is 80 mg in cp4 250 mL NS) Route: IV; Rate: 25 ml/hr; Site: right forearm; 07/06 03:19 Follow up: Response: No adverse reaction; IV Status: Infusion continued upon transfer cp4 07/05 23:19 Drug: Pantoprazole IVP 40 mg IVP once Route: IVP; Site: right forearm; 4 07/06 00:10 Follow up: Response: No adverse reaction cp4 02:39 Drug: morphine IVP or IV 4 mg IVP once over 4 mins Route: IVP; Infused Over: 4 mins; cp4 Site: right forearm; 03:19 Follow up: Response: Pain is decreased cp4 Medication: 07/05 21:04 VIS not applicable for this client. 6 Outcome: 22:47 ER care complete, transfer ordered by . cp 07/06 03:36 Transferred by ground EMS to [facility], Transfer form completed. cp4 X-rays sent w/ patient. Condition: stable Instructed on the need for transfer, 03:37 Patient left the ED. cp4 Signatures: Dispatcher [employer] EDMS DawitSarai, Reg Reg mr Gabriele Riddle PA PA cp Karlee Mckeon cp4 Aileen Vale RN RN tm6 Maureen Haro RN RN al5
--- NOTE | 2024-07-05 22:48 | EDPHYS ---
Physician Documentation [facility] Name: Trish Vergara Age: 74 yrs Sex: Female : 1950 Arrival Date: 07/05/2024 Time: 20:43 Bed 15 Private MD: ED Physician Huey Villafuerte HPI: 07/04 21:20 This 74 yrs old Female presents to ER via Wheelchair with complaints of Abdominal Pain. cp Historical: - Allergies: 07/05 20:53 Benadryl; cp4 20:53 Phenergan; cp4 20:53 Talwin; cp4 - PMHx: 20:53 8 hip replacements; Chronic pain; plate in back; cp4 - Immunization history:: Adult Immunizations up to date. - Infectious Disease History:: Denies. - Social history:: Smoking status: Patient denies any tobacco usage or history of. Exam: 22:15 ECG was reviewed by the Attending Physician. cp 23:00 : Rectal exam: Stool: black, cp Vital Signs: 20:51 BP 146 / 69; Pulse 89; Resp 18; Temp 98.4; Pulse Ox 100% ; Weight 54.43 kg; Height 5 cp4 ft. 11 in. ; Pain 10/10; 22:00 BP 138 / 61; Pulse 90; Resp 18; Pulse Ox 99% ; cp4 23:00 BP 139 / 76; Pulse 88; Resp 18; Pulse Ox 97% ; cp4 20:51 Body Mass Index 16.74 (54.43 kg, 180.34 cm) cp4 20:51 Pain Scale: Adult cp4 MDM: 21:02 Patient medically screened. cp 07/05 21:17 Order name: Basic Metabolic Panel; Complete Time: 22:48 cp 07/05 22:48 Interpretation: Normal except: CL 111; GLUC 125; BUN 23; CRE 1.40; GFR 40. cp 07/05 21:17 Order name: CBC with Diff; Complete Time: 22:48 cp 07/05 22:49 Interpretation: Normal except: RBC 1.60; HGB 4.0; HCT 12.7; MCV 79.3; MCH 24.8; MCHC cp 31.3; RDW 18.8; MPV 7.5; YOVANI% 82.1; LYM% 10.2. 07/05 21:17 Order name: LFT's; Complete Time: 22:48 cp 07/05 23:39 Interpretation: Normal except: AST 13; A/G 0.8; GLOB 3.6; ALB 2.9. cp 07/05 21:17 Order name: Magnesium; Complete Time: 22:48 cp 07/05 21:17 Order name: NT PRO-BNP; Complete Time: 22:48 cp 07/05 22:49 Interpretation: Abnormal: NT PRO-BNP 5421. cp 07/05 21:17 Order name: PT-INR; Complete Time: 22:48 cp 07/05 21:17 Order name: Troponin HS; Complete Time: 22:48 cp 07/05 23:39 Interpretation: Reviewed. 07/05 21:17 Order name: Ptt, Activated; Complete Time: 22:48 cp 07/05 21:17 Order name: Type And Screen 07/05 23:38 Interpretation: Reviewed. 07/05 21:17 Order name: Lipase; Complete Time: 22:48 07/05 22:21 Order name: Packed RBC Leukored EDOR 07/06 00:18 Order name: Blood Culture Adult (2) 07/06 00:18 Order name: Lactate w/ 2H reflex if indic.; Complete Time: 02:08 07/05 21:17 Order name: XRAY Chest (1 view); Complete Time: 22:00 07/05 23:39 Interpretation: Report review. 07/05 22:01 Order name: CT Abd/Pelvis - IV Contrast Only cp 07/05 21:17 Order name: EKG; Complete Time: 21:17 07/05 21:17 Order name: Cardiac monitoring; Complete Time: 22:15 07/05 21:17 Order name: EKG - Nurse/Tech; Complete Time: 22:15 cp 07/05 21:17 Order name: IV Saline Lock; Complete Time: 22:01 cp 07/05 21:17 Order name: Labs collected and sent; Complete Time: 22:01 cp 07/05 21:17 Order name: O2 Per Protocol; Complete Time: 22:01 cp 07/05 21:17 Order name: O2 Sat Monitoring; Complete Time: 22:01 cp 07/05 22:15 Order name: Transfuse; Complete Time: 23:50 cp EC:15 Rate is 88 beats/min. Rhythm is regular. OH interval is normal. QRS interval is normal. cp QT interval is normal. T waves are Inverted in lead aVR. Interpreted by me. Reviewed by me. Administered Medications: 22:03 Drug: Pantoprazole IVP 40 mg IVP once Route: IVP; Site: right forearm; tm6 22:30 Follow up: Response: No adverse reaction cp4 22:03 Drug: morphine IVP or IV 4 mg IVP once over 4 mins Route: IVP; Infused Over: 4 mins; tm6 Site: right forearm; 22:30 Follow up: Response: No adverse reaction; Pain is decreased cp4 22:03 Drug: Ondansetron IVP 4 mg IVP once; over 2 minutes Route: IVP; Site: right forearm; tm6 22:30 Follow up: Response: No adverse reaction cp4 23:19 Drug: Pantoprazole IV 8 mg/hr IV at 25 ml/hr continuous; (Standard dilution is 80 mg in cp4 250 mL NS) Route: IV; Rate: 25 ml/hr; Site: right forearm; 07/06 03:19 Follow up: Response: No adverse reaction; IV Status: Infusion continued upon transfer cp4 07/05 23:19 Drug: Pantoprazole IVP 40 mg IVP once Route: IVP; Site: right forearm; cp4 07/06 00:10 Follow up: Response: No adverse reaction cp4 02:39 Drug: morphine IVP or IV 4 mg IVP once over 4 mins Route: IVP; Infused Over: 4 mins; cp4 Site: right forearm; 03:19 Follow up: Response: Pain is decreased cp4 Disposition Summary: 07/05/24 22:47 Transfer Ordered Notes: Transfer Location: [facility] cp Reason: Higher level of care cp Condition: Stable cp Problem: new cp Symptoms: have improved cp Accepting Physician: DR Kumar(07/06/24 03:37) cp4 Diagnosis - Anemia in other chronic diseases classified elsewhere cp - GI Bleed/ Gastrointestinal hemorrhage, unspecified cp - Gallbladder Distension cp Forms: - Medication Reconciliation Form cp - SBAR form cp Addendum: 07/11/2024 20:35 I was immediately available for consultation during this patient's visit. I did not e c2 personally see the patient or discuss the patient with the LASHAY. . Signatures: Dispatcher [employer] EDMS Gabriele Riddle PA PA cp Villafuerte, Huey, MD MD ec2 Karlee Mckeon cp4 Aileen Vale RN RN tm6 Corrections: (The following items were deleted from the chart) 07/05 23:39 23:38 Normal except: AST 13. cp cp 07/06 00:27 07/05 22:47 Doctor cp cp 07/06 02:13 00:27 Doctor cp cp 03:37 02:13 DR Kumar cp cp4
[2024-07-05] MEDS ORDERED: NA CHLORIDE 0.9% 250 ML ONE (22:58)
[2024-07-06] MEDS ORDERED: MORPHINE 4 MG/ML SYR ONE (02:36)
[2024-07-06 03:41] VITALS: TEMP 98.4
[2024-07-06 03:43] VITALS: BP 139/76; O2SAT 97
--- NOTE | 2024-07-06 09:59 | RAD REPORT ---
EXAM DESCRIPTION: CT - Abdomen Pelvis W Contrast - 07/06/2024 7:[address] Abdomen and Pelvis With Intravenous Contrast CLINICAL HISTORY: The patient is 74 years old and is Female; ABD PAIN TECHNIQUE: Axial computed tomography images of the abdomen and pelvis with intravenous contrast. S agittal and coronal reformatted images were created and reviewed. This CT exam was performed using one or more of the following dose reduction techniques: automated exposure control, adjustment of t he mA and/or kV according to patient size, and/or use of iterative reconstruction technique. COMPARISON: CT of the abdomen and pelvis June 15, 2023 FINDINGS: ARTIFACTS: The exam is suboptimal secondary to motion artifact. LUNG BASES: Minimal dependent densities in the lung bases are present. No consolidation. HEART: The heart is enlarged. There is no pericardial effusion. ABDOMEN: LIVER: Unremarkable. No mass. GALLBLADDER AND BILE DUCTS: The gallbladder is distended. No calcified gallstones is seen. Mild d ilatation of the common bile duct measuring up to 0.8 cm is present. PANCREAS: Fatty infiltration of pancreas is present. SPLEEN: Unremarkable. ADRENALS: Unremarkable. No mass. KIDNEYS AND URETERS: The kidneys have a lobular contour. There is no hydronephrosis or hydrourete r of either kidney. The kidneys enhance symmetrically. STOMACH AND BOWEL: Stomach is decompressed. A duodenal diverticulum is noted. The small bowel is otherwise normal in caliber. Stool is noted throughout the colon. There is no mucosal thickening or e vidence of obstruction. PELVIS: APPENDIX: No findings to suggest acute appendicitis. BLADDER: The bladder is well distended. REPRODUCTIVE: Unremarkable as visualized. ABDOMEN and PELVIS: INTRAPERITONEAL SPACE: Unremarkable. No free air. No significant fluid collection. BONES/JOINTS: Bilateral hip prostheses are present causing streak artifact limiting evaluation of the chest. Multilevel degenerative change of the spine is present. Postsurgical change of lumbar s pine is noted. There is no acute fracture. SOFT TISSUES: The soft tissues are normal. VASCULATURE: Unremarkable. No abdominal aortic aneurysm. LYMPH NODES: Unremarkable. No enlarged lymph nodes. IMPRESSION: Distended gallbladder with mild biliary dilatation. If there is clinical concern for acu te gallbladder pathology, findings could be further evaluated with ultrasound or HIDA scan. Electronically signed by: Francoise Virgen MD 07/05/2024 11:23 PM CDT Due to temporary technical issues with the PACS/Fluency reporting system, reports are being signed by the in house radiologists without review as a courtesy to insure prompt reporting. The interpreting radiologist is fully responsible for the content of the report.
--- NOTE | 2024-07-06 12:36 | EKG ---
Test Date: 2024-07-05 Test Time: 22:09:42 Banana Loader: NUBIA MEASUREMENT RESULTS: Intervals: Rate: 88 RI: 148 QRSD: 86 QT: 388 QTc: 469 [place]: P: 28 RI: 148 QRS: 6 T: 12 INTERPRETIVE STATEMENTS: Normal sinus rhythm Septal infarct, age undetermined Abnormal ECG Compared to ECG 06/20/2023 10:17:17 Myocardial infarct finding now present T-wave abnormality no longer present Electronically Signed On 07-06-24 12:35:18 CDT by Flaco Sun
== END 2024-07-06 03:37 | disposition short-term general hospital (02) ==
LOC: ER 20:43
PROC: 30233N1 Transfusion of Nonautologous Red Blood Cells into Peripheral Vein, Percutaneous Approach (ICD-10-PCS; principal; 2024-07-06)
DX: D64.9 Anemia, unspecified (principal); K82.8 Other specified diseases of gallbladder
CPT/HCPCS: 96365; 93005; 87040 ×2; 83605; 96375; 99285; 96366; 36430; P9016